=== PATIENT | male | born 1955 | race Caucasian/White ===

== ENCOUNTER 2017-06-01 17:07 | Emergency (ER) | payer OTHER ==
[2017-06-01 17:14] VITALS: BP 136/86
[2017-06-01] MEDS ORDERED: Ondansetron 4 MG Tab.DIS PO ONE ×2 (17:47→20:15)
[2017-06-01] MEDS ORDERED: Ondansetron 4 MG/2 ML SDV IVPUSH ONE (17:53)
[2017-06-01] MEDS ORDERED: Sodium Chloride 0.9% 1,000 ML IV SCH ×2 (18:00→18:45)
[2017-06-01] MEDS ORDERED: Albuterol/Ipratropium 3.0-0.5 MG/3 ML Neb Soln NEB ONE (18:21)
--- NOTE | 2017-06-01 18:23 | EDM.PDOC ---
ED HPI GENERAL MEDICAL PROBLEM - General Chief Complaint: General Stated Complaint: [facility] Time Seen by Provider: 06/01/17 17:30 Source of Information: Reports: Patient, RN Notes Reviewed - History of Present Illness INITIAL COMMENTS - FREE TEXT/NARRATIVE: 61 year male has been brought in by ambulance for evaluation of shortness of breath, nonspecific dizziness. He states [facility]. The became dizzy and lightheaded. Therefore ambulance was called. Vitals were stable upon their arrival. He was transported here without further incident. He continues to feel mildly short of breath. He has no chest pain. Is a very heavy smoker. Is not currently coughing more than usual. He continues to feel mildly short of breath. Looking at ED prior visits he does have history of known alcohol abuse. It does not appear he is taking any current medications. - Related Data Allergies Allergy/AdvReac Type Severity Reaction Status Date / Time No Known Allergies Allergy Verified 06/01/17 17:11 Past Medical History HEENT History: Reports: Impaired Vision Other HEENT History: wears eyeglasses, states has had sinus infection for past 3 yrs. Cardiovascular History: Reports: Hypertension, Other (See Below) Other Cardiovascular History: states BP always elevated but not formally Dx'd. Respiratory History: Reports: Other (See Below) Other Respiratory History: coughing up blood daily, pt self-diagnosing with lung cancer. Gastrointestinal History: Reports: Diverticulosis Musculoskeletal History: Reports: Other (See Below) Other Musculoskeletal History: states has "pinched nerve" to L4. Neurological History: Reports: Concussion Psychiatric History: Reports: Addiction, Anxiety, Depression - Past Surgical History GI Surgical History: Reports: Appendectomy, Hernia, Inguinal Neurological Surgical History: Reports: C-Spine Musculoskeletal Surgical History: Reports: Other (See Below) Dermatological Surgical History: Reports: Skin Graft, Other (See Below) Social & Family History - Family History Family Medical History: Noncontributory - Tobacco Use Smoking Status *Q: Current Every Day Smoker Years of Tobacco use: 40 Packs/Tins Daily: 0.5 Month Tobacco Last Used: 1 yr ago Second Hand Smoke Exposure: No - Caffeine Use Caffeine Use: Reports: Coffee - Alcohol Use Days Per Week of Alcohol Use: 7 Number of Drinks Per Day: 3 Total Drinks Per Week: 21 - Recreational Drug Use Recreational Drug Use: No Drug Use in Last 12 Months: Yes Recreational Drug Type: Reports: Marijuana/Hashish Recreational Drug Use Frequency: Not Used In Over 6 Months - Living Situation & Occupation Living situation: Reports: , Alone Occupation: Employed ED ROS GENERAL - Review of Systems Review Of Systems: See Below Constitutional: Denies: Fever, Chills HEENT: Denies: Sinus Problem, Throat Pain, Throat Swelling Respiratory: Reports: Shortness of Breath, Wheezing (Possible) Cardiovascular: Denies: Chest Pain, Edema GI/Abdominal: Reports: Nausea. Denies: Abdominal Pain, Vomiting (Mild) Musculoskeletal: Denies: Neck Pain, Shoulder Pain, Arm Pain Skin: Reports: No Symptoms Neurological: Reports: Dizziness. Denies: Trouble Speaking, Weakness ED EXAM, GENERAL - Physical Exam Exam: See Below General Appearance: Alert, No Apparent Distress Eye Exam: Bilateral Eye: PERRL Throat/Mouth: Normal Inspection, Normal Oropharynx Head: Atraumatic. No: Facial Swelling Neck: Supple, Full Range of Motion Respiratory/Chest: Respiratory Distress. No: Rales, Rhonchi (Mild tachypnea), Wheezing Cardiovascular: Regular Rate, Rhythm GI/Abdominal: Soft, Non-Tender Extremities: No: Pedal Edema, Leg Pain, Increased Warmth, Redness Neurological: Alert, No Motor/Sensory Deficits Skin Exam: Warm, Dry, Normal Color EKG INTERPRETATION EKG Date: 06/01/17 Rhythm: NSR Bayard: Normal P-Wave: Present QRS: Normal ST-T: Normal Course - Vital Signs Last Recorded V/S: Last Vital Signs Temp 98.2 F 06/01/17 17:12 Pulse 61 06/01/17 17:12 Resp 20 06/01/17 17:12 BP 136/86 06/01/17 17:12 Pulse Ox 96 06/01/17 18:32 - Orders/Labs/Meds Labs: Laboratory Tests 06/01/17 06/01/17 06/01/17 Range/Units 17:45 17:45 17:45 WBC 7.10 (4.23-9.07) K/mm3 RBC 4.82 (4.63-6.08) M/mm3 Hgb 16.6 (13.7-17.5) gm/L Hct 46.9 (40.1-51.0) % MCV 97.3 H (79.0-92.2) fl MCH 34.4 H (25.7-32.2) pg MCHC 35.4 (32.2-35.5) g/dl RDW Std Deviation 48.2 H (35.1-43.9) fL Plt Count 158 L (163-337) K/mm3 MPV 10.1 (9.4-12.3) fl Neut % (Auto) 42.2 (34.0-67.9) % Lymph % (Auto) 46.5 (21.8-53.1) % [place] % (Auto) 8.9 (5.3-12.2) % Eos % (Auto) 1.4 (0.8-7.0) Baso % (Auto) 0.7 (0.1-1.2) % Neut # (Auto) 3.00 (1.78-5.38) K/mm3 Lymph # (Auto) 3.30 (1.32-3.57) K/mm3 [place] # (Auto) 0.63 (0.30-0.82) K/mm3 Eos # (Auto) 0.10 (0.04-0.54) K/mm3 Baso # (Auto) 0.05 (0.01-0.08) K/mm3 Sodium 136 (136-145) mEq/L Potassium 3.2 L (3.5-5.1) mEq/L Chloride 99 (98-107) mEq/L Carbon Dioxide 20 L (21-32) mEq/L Anion Gap 20.2 H (5-15) BUN 11 (7-18) mg/dL Creatinine 1.1 (0.7-1.3) mg/dL Est Cr Clr Drug Dosing 67.36 mL/min Estimated GFR (MDRD) > 60 (>60) mL/min BUN/Creatinine Ratio 10.0 L (14-18) Glucose 153 H (80-115) mg/dL Calcium 9.2 (8.5-10.1) mg/dL Total Bilirubin 1.4 H (0.2-1.0) mg/dL AST 180 H (15-37) U/L ALT 182 H (16-63) U/L Alkaline Phosphatase 87 (46-116) U/L NT-Pro-B Natriuret Pep 52 (0-125) pg/mL Total Protein 7.4 (6.4-8.2) g/dl Albumin 3.8 (3.4-5.0) g/dl Globulin 3.6 gm/dL Albumin/Globulin Ratio 1.1 (1-2) Meds: Medications Discontinued Medications Generic Name Dose Route Start Last Admin Trade Name Jean Claudeq PRN Reason Stop Dose Admin Albuterol/Ipratropium 3 ml 06/01/17 18:21 06/01/17 18:32 Duoneb 3.0-0.5 Mg/3 Ml NEB 06/01/17 18:22 3 ml ONETIME ONE Administration Sodium Chloride 1,000 mls @ 150 mls/hr 06/01/17 18:00 06/01/17 18:05 Normal Saline IV 150 mls/hr ASDIRECTED MELISSA Administration Sodium Chloride 1,000 mls @ 999 mls/hr 06/01/17 18:45 Normal Saline IV ONETIME MELISSA Meclizine HCl 12.5 mg 06/01/17 18:50 06/01/17 18:56 Antivert PO 06/01/17 18:51 12.5 mg ONETIME ONE Administration Methylprednisolone Sodium Succinate 125 mg 06/01/17 18:50 06/01/17 18:56 Solu-Medrol IVPUSH 06/01/17 18:51 125 mg ONETIME ONE Administration Ondansetron HCl 4 mg 06/01/17 17:47 Zofran Odt PO 06/01/17 17:48 ONETIME ONE Ondansetron HCl 4 mg 06/01/17 17:53 06/01/17 18:05 Zofran IVPUSH 06/01/17 17:54 4 mg ONETIME ONE Administration Ondansetron HCl Confirm 06/01/17 20:20 06/01/17 20:18 Zofran Odt Administered 06/01/17 20:21 Not Given Dose 4 mg .ROUTE .STK-MED ONE Ondansetron HCl 4 mg 06/01/17 20:15 06/01/17 20:16 Zofran Odt PO 06/01/17 20:16 4 mg ONETIME ONE Administration - Re-Assessments/Exams Free Text/Narrative Re-Assessment/Exam: 06/01/17 18:42 White blood count is come back normal. Liver enzymes are mildly elevated compatible with what looks like history of alcohol abuse, at least in the past. He does not appear intoxicated at this time. Chest x-ray does not show acute infiltrate. Labs show that he was at least mild to moderately dehydrated. He has been drinking water upon arrival to ED. Food tray was ordered. He states he has not eaten for 3 days. He has been given a DuoNeb. Continues to have no chest pain while here in the ED. 06/01/17 18:45. When I went back to check on patient he was dosing, had not touched his meal tray. When I asked why he was not eating he stated that he still felt "dizzy". When Asked about vertigo he stated that yes "things are moving around and spinning". When I check extraocular motion he does have some mild horizontal nystagmus. Therefore we are going to give Antivert 12.5 mg by mouth at this time. Have also ordered Solu-Medrol 125 mg IV. We will send the remainder of the 12.5 mg Antivert home with him to take tomorrow morning. Patient is agreeable with that plan. Departure - Departure Time of Disposition: 17:40 Disposition: Home, Self-Care 01 Condition: Fair Clinical Impression: Dyspnea Qualifiers: Dyspnea type: unspecified Qualified Code(s): R06.00 - Dyspnea, unspecified Labyrinthitis Qualifiers: Laterality: unspecified laterality Qualified Code(s): H83.09 - Labyrinthitis, unspecified ear - Discharge Information Instructions: Shortness of Breath, [id number], Labyrinthitis Referrals: Isaac Mccollum Jr, MD [Primary Care Provider] - Forms: ED Department Discharge Additional Instructions: Rest, moves slowly and carefully, Sudden movements of your head will make the dizziness worse. We have given you a medication called Antivert or meclizine to help you with the dizziness. You can take the other half of the tablet tomorrow morning. We have also given steroid medication through the IV and given you a nebulized breathing treatment. You do have some mild COPD or emphysema from many years of heavy smoking but I do not see any sign of pneumonia or other heart or lung problem at this time. Clear liquids and bland diet as tolerated. If you continue to have further vertigo or dizziness you can [employer] further meclizine or Antivert from any pharmacy, available OTC. It is not expensive. Follow-up clinic as needed. Return to ED as needed if symptoms worsening in any way.
[2017-06-01] MEDS ORDERED: methylPREDNISolone Sodium Succinate 125 MG/2 ML SDV IVPUSH ONE (18:50)
[2017-06-01] MEDS ORDERED: Meclizine 12.5 MG Tab PO ONE (18:50)
[2017-06-01] MEDS ORDERED: Ondansetron 4 MG Tab.DIS ONE (20:20)
--- NOTE | 2017-06-02 19:59 | CR ---
Chest: Portable view of the chest was obtained. Comparison: Prior chest x-ray of 10/08/16. Heart size is normal. Mild tortuosity of the thoracic aorta is seen. Lungs are clear with no acute infiltrates. Previous lower cervical spine surgery is noted. Impression: 1. Incidental findings. Nothing acute is identified on portable chest x-ray. Diagnostic code #2
== END 2017-06-01 20:20 | disposition home or self-care (01) ==
LOC: JD.ED 17:07
DX: R06.00 Dyspnea, unspecified (principal); H83.09 Labyrinthitis, unspecified ear; F17.210 Nicotine dependence, cigarettes, uncomplicated
CPT/HCPCS: 36415; 71010; 80053; 83880; 85025; 93005; 94640; 96361; 96374; 96375; 99285; A9270; J2405; J2930; J7040; 99284

== ENCOUNTER 2017-06-13 11:15 | Emergency (ER) | payer OTHER ==
[2017-06-13 11:34] VITALS: BP 151/103
--- NOTE | 2017-06-13 11:41 | EDM.PDOCBH ---
ED HPI GENERAL MEDICAL PROBLEM - General Chief Complaint: Drug or Alcohol Abuse Stated Complaint: Medical clearance Time Seen by Provider: 06/13/17 11:40 Source of Information: Reports: Patient, RN Notes Reviewed History Limitations: Reports: No Limitations - History of Present Illness INITIAL COMMENTS - FREE TEXT/NARRATIVE: 61 year old male presents to ED for medical clearance for admission to inpatient crisis bed for alcohol treatment. Patient has a long standing history of alcohol abuse and reports alcohol intake of 1/2 of a fifth of vodka and 6 pack of beer daily. He has had periods of sobriety in the past and lists his withdrawal symptoms as tremors, diaphoresis, and overall malaise. Denies history of seizures. He reports a history of depression with past suicidal ideation without suicide attempt, however, he denies thoughts of harming self or others at present time. Patient is currently residing at a motel, has no transportation, has no money, and his is currently incarcerated. He reports his last drink was 3 days ago, and he has not eaten since due to nausea and decreased appetite. He was seen at ED 06/01/17 for c/o vertigo and reports he still has intermittent symptoms. Vertigo symptoms have improved. At bedside is a [facility] resources staff member who agrees to provide transportation to inpatient facility upon discharge. Patient is 1/2 PPD smoker x 45 years and is requesting nicotine patches. He does report trouble sleeping and takes Advil PM as needed. Back Pain Score (Numeric/FACES): 6 - Related Data Allergies Allergy/AdvReac Type Severity Reaction Status Date / Time No Known Allergies Allergy Verified 06/01/17 17:11 Home Meds: Home Meds ALPRAZolam [Xanax] 0.5 mg PO BEDTIME #10 tablet 06/13/17 [Rx] Nicotine [Habitrol] 21 mg TRDERM DAILY #10 patch 06/13/17 [Rx] Past Medical History HEENT History: Reports: Impaired Vision Other HEENT History: wears eyeglasses, states has had sinus infection for past 3 yrs. Cardiovascular History: Reports: Hypertension Other Cardiovascular History: states BP always elevated but not formally Dx'd. Respiratory History: Reports: Other (See Below) Other Respiratory History: coughing up blood daily, pt self-diagnosing with lung cancer. Gastrointestinal History: Reports: Diverticulosis Musculoskeletal History: Reports: Other (See Below) Other Musculoskeletal History: states has "pinched nerve" to L4. Neurological History: Reports: Concussion Psychiatric History: Reports: Addiction, Anxiety, Depression - Past Surgical History GI Surgical History: Reports: Appendectomy, Hernia, Inguinal Neurological Surgical History: Reports: C-Spine Dermatological Surgical History: Reports: Skin Graft Social & Family History - Family History Family Medical History: Noncontributory - Tobacco Use Smoking Status *Q: Current Every Day Smoker Years of Tobacco use: 49 Packs/Tins Daily: 0.5 Month Tobacco Last Used: 1 yr ago Second Hand Smoke Exposure: No - Caffeine Use Caffeine Use: Reports: Coffee - Alcohol Use Days Per Week of Alcohol Use: 7 Number of Drinks Per Day: 3 Total Drinks Per Week: 21 - Recreational Drug Use Recreational Drug Use: Yes Drug Use in Last 12 Months: Yes Recreational Drug Type: Reports: Marijuana/Hashish Other Recreational Drug Type: years ago admits to drugs Recreational Drug Use Frequency: Not Used In Over 6 Months - Living Situation & Occupation Living situation: Reports: , Alone Occupation: Employed ED ROS GENERAL - Review of Systems Review Of Systems: See Below Constitutional: Reports: Malaise, Fatigue, Diaphoresis, Decreased Appetite HEENT: Reports: Vertigo Respiratory: Reports: Cough (dry, smoker's cough). Denies: Sputum Cardiovascular: Reports: No Symptoms GI/Abdominal: Reports: Decreased Appetite, Nausea. Denies: Abdominal Pain, Constipation, Diarrhea, Vomiting : Reports: No Symptoms Musculoskeletal: Reports: No Symptoms Skin: Denies: Jaundice Neurological: Reports: No Symptoms. Denies: Headache, Seizure Psychiatric: Reports: Anxiety, Depression ED EXAM, BEHAVIORAL HEALTH - Physical Exam Exam: See Below Exam Limited By: No Limitations General Appearance: Alert, No Apparent Distress, Obese Eye Exam: Bilateral Eye: PERRL Ears: Normal External Exam, Normal TMs Head: Atraumatic, Normocephalic Neck: Normal Inspection Respiratory/Chest: No Respiratory Distress, Normal Breath Sounds, No Accessory Muscle Use, Chest Non-Tender, Decreased Breath Sounds Cardiovascular: Normal Peripheral Pulses, Regular Rate, Rhythm, No Murmur GI/Abdominal: Normal Bowel Sounds (obese), Soft, Non-Tender Extremities: Normal Inspection, Normal Range of Motion Neurological: Alert, Normal Mood/Affect, Normal Cognition, Normal Gait, Oriented x 3. No: Ataxia, Tremor Psychiatric: Alert, Normal Affect, Normal Cognition, Normal Mood, Oriented Skin Exam: Warm, Dry, Intact COURSE, BEHAVIORAL HEALTH COMP - Course Vital Signs: Last Vital Signs Temp 97.1 F 06/13/17 11:23 Pulse 81 06/13/17 11:23 Resp 20 06/13/17 11:23 BP 151/103 H 06/13/17 11:33 Pulse Ox 97 06/13/17 11:23 Orders, Labs, Meds: Laboratory Tests 06/13/17 06/13/17 06/13/17 Range/Units 11:59 11:59 12:00 WBC 6.09 (4.23-9.07) K/mm3 RBC 4.70 (4.63-6.08) M/mm3 Hgb 16.1 (13.7-17.5) gm/L Hct 46.2 (40.1-51.0) % MCV 98.3 H (79.0-92.2) fl MCH 34.3 H (25.7-32.2) pg MCHC 34.8 (32.2-35.5) g/dl RDW Std Deviation 48.4 H (35.1-43.9) fL Plt Count 129 L (163-337) K/mm3 MPV 10.3 (9.4-12.3) fl Neut % (Auto) 70.9 H (34.0-67.9) % Lymph % (Auto) 19.2 L (21.8-53.1) % [place] % (Auto) 8.4 (5.3-12.2) % Eos % (Auto) 0.5 L (0.8-7.0) Baso % (Auto) 0.7 (0.1-1.2) % Neut # (Auto) 4.32 (1.78-5.38) K/mm3 Lymph # (Auto) 1.17 L (1.32-3.57) K/mm3 [place] # (Auto) 0.51 (0.30-0.82) K/mm3 Eos # (Auto) 0.03 L (0.04-0.54) K/mm3 Baso # (Auto) 0.04 (0.01-0.08) K/mm3 Sodium (136-145) mEq/L Potassium (3.5-5.1) mEq/L Chloride (98-107) mEq/L Carbon Dioxide (21-32) mEq/L Anion Gap (5-15) BUN (7-18) mg/dL Creatinine (0.7-1.3) mg/dL Est Cr Clr Drug Dosing mL/min Estimated GFR (MDRD) (>60) mL/min BUN/Creatinine Ratio (14-18) Glucose (80-115) mg/dL Calcium (8.5-10.1) mg/dL Total Bilirubin (0.2-1.0) mg/dL AST (15-37) U/L ALT (16-63) U/L Alkaline Phosphatase (46-116) U/L Total Protein (6.4-8.2) g/dl Albumin (3.4-5.0) g/dl Globulin gm/dL Albumin/Globulin Ratio (1-2) TSH 3rd Generation (0.358-3.74) uIU/mL Urine Color Manuela H (Yellow) Urine Appearance Clear (Clear) Urine pH 7.0 (5.0-8.0) Ur Specific [place] 1.025 (1.005-1.030) Urine Protein 1+ H (Negative) Urine Glucose (UA) Negative (Negative) Urine Ketones Negative (Negative) Urine Occult Blood Negative (Negative) Urine Nitrite Positive H (Negative) Urine Bilirubin 2+ H (Negative) Urine Urobilinogen >=8.0 H (0.2-1.0) Ur Leukocyte Esterase Negative (Negative) Urine RBC Not seen (0-5) /hpf Urine WBC 0-5 (0-5) /hpf Ur Epithelial Cells Not seen (0-5) /hpf Urine Bacteria Few (FEW) /hpf Urine Mucus Many H (FEW) /hpf Urine Opiates Screen Negative (NEGATIVE) Ur Buprenorphine Scrn Negative (NEGATIVE) Ur Oxycodone Screen Negative (NEGATIVE) Urine Methadone Screen Negative (NEGATIVE) Ur Propoxyphene Screen Negative (NEGATIVE) Ur Barbiturates Screen Negative (NEGATIVE) Ur Tricyclics Screen Negative (NEGATIVE) Ur Phencyclidine Scrn Negative (NEGATIVE) Ur Amphetamine Screen Negative (NEGATIVE) U Methamphetamines Scrn Negative (NEGATIVE) U Benzodiazepines Scrn Negative (NEGATIVE) U Cocaine Metab Screen Negative (NEGATIVE) U Marijuana (THC) Screen Negative (NEGATIVE) Ethyl Alcohol (0.00) gm% 06/13/ Range/Units 12:00 WBC (4.23-9.07) K/mm3 RBC (4.63-6.08) M/mm3 Hgb (13.7-17.5) gm/L Hct (40.1-51.0) % MCV (79.0-92.2) fl MCH (25.7-32.2) pg MCHC (32.2-35.5) g/dl RDW Std Deviation (35.1-43.9) fL Plt Count (163-337) K/mm3 MPV (9.4-12.3) fl Neut % (Auto) (34.0-67.9) % Lymph % (Auto) (21.8-53.1) % [place] % (Auto) (5.3-12.2) % Eos % (Auto) (0.8-7.0) Baso % (Auto) (0.1-1.2) % Neut # (Auto) (1.78-5.38) K/mm3 Lymph # (Auto) (1.32-3.57) K/mm3 [place] # (Auto) (0.30-0.82) K/mm3 Eos # (Auto) (0.04-0.54) K/mm3 Baso # (Auto) (0.01-0.08) K/mm3 Sodium 140 (136-145) mEq/L Potassium 3.7 (3.5-5.1) mEq/L Chloride 103 (98-107) mEq/L Carbon Dioxide 22 (21-32) mEq/L Anion Gap 18.7 H (5-15) BUN 12 (7-18) mg/dL Creatinine 1.0 (0.7-1.3) mg/dL Est Cr Clr Drug Dosing 74.10 mL/min Estimated GFR (MDRD) > 60 (>60) mL/min BUN/Creatinine Ratio 12.0 L (14-18) Glucose 116 H (80-115) mg/dL Calcium 8.9 (8.5-10.1) mg/dL Total Bilirubin 1.9 H (0.2-1.0) mg/dL AST 82 H (15-37) U/L ALT 118 H (16-63) U/L Alkaline Phosphatase 85 (46-116) U/L Total Protein 7.2 (6.4-8.2) g/dl Albumin 3.7 (3.4-5.0) g/dl Globulin 3.5 gm/dL Albumin/Globulin Ratio 1.1 (1-2) TSH 3rd Generation 1.931 (0.358-3.74) uIU/mL Urine Color (Yellow) Urine Appearance (Clear) Urine pH (5.0-8.0) Ur Specific [place] (1.005-1.030) Urine Protein (Negative) Urine Glucose (UA) (Negative) Urine Ketones (Negative) Urine Occult Blood (Negative) Urine Nitrite (Negative) Urine Bilirubin (Negative) Urine Urobilinogen (0.2-1.0) Ur Leukocyte Esterase (Negative) Urine RBC (0-5) /hpf Urine WBC (0-5) /hpf Ur Epithelial Cells (0-5) /hpf Urine Bacteria (FEW) /hpf Urine Mucus (FEW) /hpf Urine Opiates Screen (NEGATIVE) Ur Buprenorphine Scrn (NEGATIVE) Ur Oxycodone Screen (NEGATIVE) Urine Methadone Screen (NEGATIVE) Ur Propoxyphene Screen (NEGATIVE) Ur Barbiturates Screen (NEGATIVE) Ur Tricyclics Screen (NEGATIVE) Ur Phencyclidine Scrn (NEGATIVE) Ur Amphetamine Screen (NEGATIVE) U Methamphetamines Scrn (NEGATIVE) U Benzodiazepines Scrn (NEGATIVE) U Cocaine Metab Screen (NEGATIVE) U Marijuana (THC) Screen (NEGATIVE) Ethyl Alcohol 0.00 (0.00) gm% Re-Assessment/Re-Exam: CBC is unremarkable. CMP reveals elevated liver enzynes and bilirubin level, likely related to his chronic ETOH abuse. The patient was made aware of these findings. His ETOH is 0. He has no tachycardia, ataxia, tremors, or fever. He reports his last drink was 3 days ago and is not in acute withdrawal at this time. He is medically cleared to go to the [facility]. At time of discharge, he does report some slowly increasing bilateral lower extremity edema. He has no chest pain or SOB. He was instructed to f/u with his PCP Dr. Mccollum within the next week regarding this and his liver function tests. I spoke to Torie and Mary Carmen KAM at [facility]. They have accepted patient. Torie will transport the patient. Departure - Departure Time of Disposition: 13:07 Disposition: DC/Tfer to Other 70 Condition: Good Clinical Impression: Alcohol abuse - Discharge Information Prescriptions: ALPRAZolam [Xanax] 0.5 mg PO BEDTIME #10 tablet Nicotine [Habitrol] 21 mg TRDERM DAILY #10 patch Instructions: Alcohol Use Disorder Referrals: Isaac Mccollum Jr, MD [Primary Care Provider] - Additional Instructions: Medications: Xanax 0.5mg at bedtime Meclizine 25mg twice a day for dizziness. Nicotine patch 21mg on in the morning, off at bedtime Follow-up with Dr. Mccollum within the next week to discuss your liver function and lower extremity swelling Return to ER with any withdrawal symptoms or additional concerns.
== END 2017-06-13 13:35 | disposition other institution (70) ==
LOC: JD.ED 11:15
DX: F10.10 Alcohol abuse, uncomplicated (principal); F17.210 Nicotine dependence, cigarettes, uncomplicated; Z79.899 Other long term (current) drug therapy
CPT/HCPCS: 36415; 80053; 80306; 81001; 84443; 85025; 99283; G0480; 99284

== ENCOUNTER 2020-05-06 16:52 | Emergency (ER) | payer MEDICARE, MEDICAID ==
[2020-05-06] MEDS ORDERED: Octreotide 50 MCG/1 ML Amp IVPUSH ONE (17:04)
--- NOTE | 2020-05-06 17:07 | EDM.PDOC ---
ED HPI GENERAL MEDICAL PROBLEM - General Chief Complaint: Gastrointestinal Problem Stated Complaint: [facility] Time Seen by Provider: 05/06/20 17:00 Source of Information: Reports: Patient History Limitations: Reports: No Limitations - History of Present Illness INITIAL COMMENTS - FREE TEXT/NARRATIVE: 64-year-old male presents to the ED with reported recurrent gross hematemesis since 230 hours this morning. Patient states he did vomit up at least 2 handfuls of blood on 3 occasions since 0230 hrs. this morning. He feels very lightheaded dizzy and weak. He states he missed the toilet and there is blood all over the bathroom. He is known to have ascites of the liver and esophageal varices treated twice in the last few weeks at [facility] in [place] with clipping, although he is not had any upper GI bleeding in the past. Reports the stools are dark black in color the last 2 days as well. Previous abdominal surgery is that of an infraumbilical incision to the pubic symphysis resection of ruptured diverticulum with removal of 6 inches of sigmoid colon. Has a right inguinal hernia as well. Patient has no contraindications to blood transfusion. Onset: Today, Sudden Onset Date: 05/06/20 Onset Time: 02:30 Duration: Hour(s):, Intermittent (Has vomited 3 times of 2 handfuls of blood mixed with clot since 0230 hrs. this morning. Last time was approximately an hour and a half ago.) Location: Reports: Abdomen (Gross hematemesis.) Quality: Reports: Other (Only pain he had in his abdomen was in his lower abdomen as he had a distended bladder and strong need to void.) Severity: Severe Improves with: Reports: None Worsens with: Reports: None Context: Reports: Other (Continuous upper GI bleeding suspect source to be esophageal varices.). Denies: Activity, Exercise, Lifting, Sick Contact, Trauma Associated Symptoms: Reports: Diaphoresis, Loss of Appetite, Malaise, N ausea/Vomiting, Shortness of Breath, Weakness (Generalized). Denies: Confusion, Chest Pain, Cough, cough w sputum, Fever/Chills, Headaches, Rash, Seizure, Syncope Treatments [employer]: Reports: NSAIDS (Motrin usually at bedtime to help sleep. ) - Related Data Allergies Allergy/AdvReac Type Severity Reaction Status Date / Time No Known Allergies Allergy Verified 06/01/17 17:11 Home Meds: Home Meds ALPRAZolam [Xanax] 0.5 mg PO BEDTIME #10 tablet 06/13/17 [Rx] Nicotine [Habitrol] 21 mg TRDERM DAILY #10 patch 06/13/17 [Rx] Past Medical History HEENT History: Reports: Impaired Vision Other HEENT History: wears eyeglasses, states has had sinus infection for past 3 yrs. Cardiovascular History: Reports: Hypertension Other Cardiovascular History: states BP always elevated but not formally Dx'd. Respiratory History: Reports: Other (See Below) Other Respiratory History: coughing up blood daily, pt self-diagnosing with lung cancer. Gastrointestinal History: Reports: Cirrhosis (Known esophageal varices), Diverticulosis, Other (See Below) Musculoskeletal History: Reports: Other (See Below) Other Musculoskeletal History: states has "pinched nerve" to L4. Neurological History: Reports: Concussion Psychiatric History: Reports: Addiction, Anxiety, Depression - Past Surgical History GI Surgical History: Reports: Appendectomy, Hernia, Inguinal Neurological Surgical History: Reports: C-Spine Dermatological Surgical History: Reports: Skin Graft Social & Family History - Family History Family Medical History: Noncontributory - Tobacco Use Smoking Status *Q: Current Every Day Smoker Tobacco Use Within Last Twelve Months: Cigarettes (5 to 10 cigarettes daily.) - Caffeine Use Caffeine Use: Reports: Coffee - Alcohol Use Alcohol Use History: Yes Days Per Week of Alcohol Use: 4 (Usually 2-3 beers 3 or 4 times weekly.) - Living Situation & Occupation Living situation: Reports: Alone Occupation: Unemployed ED ROS GENERAL - Review of Systems Review Of Systems: See Below Constitutional: Reports: Malaise, Weakness, Fatigue, Decreased Appetite. Denies: Fever, Chills, Weight Loss HEENT: Reports: Glasses Respiratory: Reports: Shortness of Breath (Reading.), Cough. Denies: Wheezing, Pleuritic Chest Pain, Hemoptysis (Occasional cough occasional sputum production) Cardiovascular: Reports: Dyspnea on Exertion ( today after vomiting x3 of gross hematemesis.), Lightheadedness (Dizzy). Denies: Chest Pain, Blood Pressure Problem, Claudication, Orthopnea Endocrine: Reports: Fatigue GI/Abdominal: Reports: Black Stool (Yesterday and today), Decreased Appetite, Hematemesis (Gross hematemesis x3 since 0 to 30 hours this morning. ). Denies: Abdominal Pain : Reports: Frequency, Other (Teary at x3. Known BPH.) Musculoskeletal: Reports: Back Pain, Joint Pain (Knees hips neck at times) Skin: Reports: Bruising (Is extremely easily. He states that he does pop up on his abdomen and extremities for no good reason.) Neurological: Reports: No Symptoms Psychiatric: Reports: Anxiety Hematologic/Lymphatic: Reports: Easy Bleeding, Easy Bruising Immunologic: Reports: No Symptoms ED EXAM, GI/ABD - Physical Exam Exam: See Below Exam Limited By: No Limitations General Appearance: Alert, WD/WN, Moderate Distress, Other (There is pallid and has dried blood around his lips. Temperature is 37.1 heart rate 113 at the dside respiratory is 18 with O2 sats 100% on room air BP 1 3277) Eyes: Bilateral: Normal Appearance (Out blepharal pallor. No scleral icterus.) Throat/Mouth: Other (Tongue is very dry and coated.). No: Normal Teeth ( Teeth are in very poor condition.) Head: Atraumatic, Normocephalic, Other (No overt signs of head or facial trauma.) Neck: Normal Inspection, Limited Range of Motion, Tender Lateral. No: Carotid Bruit, Lymphadenopathy (L) (Crepitus on lateral rotation of the neck. Some tenderness along the lateral aspect of the cervical spine both sides.), Lymphadenopathy (R) Respiratory/Chest: Respiratory Distress (Mild tachypnea on my exam at 22/min.), Decreased Breath Sounds (Breath sounds are mildly diminished to the lung bases by about 15%.), Wheezing. No: Normal Breath Sounds, Rales (Occasional expiratory wheeze.), Rhonchi Cardiovascular: Regular Rate, Rhythm, No Edema, No Gallop, No Murmur, No Rub, Tachycardia (Tachycardia at the bedside 113/min.). No: Normal Peripheral Pulses GI/Abdominal Exam: Soft, Non-Tender (Bowel sounds are fairly hyperactive in all 4 quadrants.), No Organomegaly, Abnormal Bowel Sounds, Other (Has multiple large ecchymoses on the abdominal wall which he cannot explain how they occurred. They are not due to injection to medication) (Male) Exam: Other (He has a palpable right inguinal hernia.) Back Exam: No: CVA Tenderness (L), CVA Tenderness (R) Extremities: Normal Inspection, Normal Range of Motion, Non-Tender, No Pedal Edema Neurological: Alert, Oriented, CN II-XII Intact, Normal Cognition Psychiatric: Normal Affect, Normal Mood Skin Exam: Warm, Dry, Intact, No Rash, Pallor EKG INTERPRETATION EKG Date: 05/06/20 Time: 17:12 Rhythm: Other (Sinus tachycardia) Rate (Beats/Min): 112 [place]: Normal P-Wave: Enlarged (Sitter right atrial hypertrophy) QRS: Other (Early R wave transition compared with right ventricular appear to be versus septal hypertrophy pattern.) ST-T: Other (T wave flattening in aVL nonspecific finding.) QT: Prolonged (Moderately prolonged) EKG Interpretation Comments: Abnormal ECG Course - Vital Signs Last Recorded V/S: Last Vital Signs Temp 37.1 C 05/06/20 17:00 Pulse 113 H 05/06/20 17:00 Resp 18 05/06/20 17:00 BP 132/77 05/06/20 17:00 Pulse Ox 100 05/06/20 17:00 - Orders/Labs/Meds Orders: Active Orders 24 hr Category Date Time Status EKG Documentation Completion [RC] STAT Care 05/06/20 17:02 Active PACKED CELLS [RED BLOOD CELLS LP] [BBK] Stat Lab 05/06/20 16:50 Results TYPE AND SCREEN [BBK] Stat Lab 05/06/20 16:50 Results Dextrose 5%-0.9% NaCl [Dextrose 5%-Normal Saline] 1,000 Med 05/06/20 17:30 Active ml IV ASDIRECTED LORazepam [Ativan] Med 05/06/20 19:50 Once 1 mg IV ONETIME ONE Octreotide [SandoSTATIN] 500 mcg Med 05/06/20 17:15 Active Sodium Chloride 0.9% [Normal Saline] 499 ml IV Q10H Transfuse RBC [Transfuse Red Blood Cells] [COMM] Stat Oth 05/06/20 17:49 Ordered Medication Orders Octreotide Acetate 500 mcg/ (Sodium Chloride) 500 mls @ 50 mls/hr IV Q10H MELISSA Last Admin: 05/06/20 17:14 Dose: 50 mcg/hr, 50 mls/hr Documented by: AARON Dextrose/Sodium Chloride (Dextrose 5%-Normal Saline) 1,000 mls @ 250 mls/hr IV ASDIRECTED MELISSA Lorazepam (Ativan) 1 mg IV ONETIME ONE Stop: 05/06/20 19:51 Labs: Laboratory Tests 05/06/20 05/06/20 05/06/20 Range/Units 16:50 16:50 16:50 WBC 14.56 H (4.23-9.07) K/mm3 RBC 2.11 L (4.63-6.08) M/mm3 Hgb 7.6 L D (13.7-17.5) gm/dl Hct 23.1 L (40.1-51.0) % MCV 109.5 H D (79.0-92.2) fl MCH 36.0 H (25.7-32.2) pg MCHC 32.9 (32.2-35.5) g/dl RDW Std Deviation 59.5 H (35.1-43.9) fL Plt Count 100 L (163-337) K/mm3 MPV 10.1 (9.4-12.3) fl Neut % (Auto) 81.9 H (34.0-67.9) % Lymph % (Auto) 8.0 L (21.8-53.1) % [place] % (Auto) 8.7 (5.3-12.2) % Eos % (Auto) 0 L (0.8-7.0) Baso % (Auto) 0.1 (0.1-1.2) % Neut # (Auto) 11.91 H (1.78-5.38) K/mm3 Lymph # (Auto) 1.17 L (1.32-3.57) K/mm3 [place] # (Auto) 1.27 H (0.30-0.82) K/mm3 Eos # (Auto) 0.00 L (0.04-0.54) K/mm3 Baso # (Auto) 0.02 (0.01-0.08) K/mm3 Manual Slide Review Abnormal smear PT 27.2 H (9.7-11.7) SECONDS INR 2.59 APTT 38 H (22-31) SECONDS Sodium 139 (136-145) mEq/L Potassium 4.7 (3.5-5.1) mEq/L Chloride 103 (98-107) mEq/L Carbon Dioxide 14 L (21-32) mEq/L Anion Gap 26.7 H (5-15) BUN 29 H (7-18) mg/dL Creatinine 1.9 H (0.7-1.3) mg/dL Est Cr Clr Drug Dosing 37.50 mL/min Estimated GFR (MDRD) 36 (>60) mL/min BUN/Creatinine Ratio 15.3 (14-18) Glucose 157 H (80-115) mg/dL Calcium 8.4 L (8.5-10.1) mg/dL Magnesium 2.0 (1.8-2.4) mg/dl Total Bilirubin 5.0 H (0.2-1.0) mg/dL AST 122 H (15-37) U/L ALT 79 H (16-63) U/L Alkaline Phosphatase 92 (46-116) U/L Troponin I 0.115 H* (0.00-0.056) ng/mL C-Reactive Protein 3.2 H* (<1.0) mg/dL NT-Pro-B Natriuret Pep (0-125) pg/mL Total Protein 5.5 L (6.4-8.2) g/dl Albumin 2.2 L (3.4-5.0) g/dl Globulin 3.3 gm/dL Albumin/Globulin Ratio 0.7 L (1-2) Lipase (73-393) U/L Urine Color (Yellow) Urine Appearance (Clear) Urine pH (5.0-8.0) Ur Specific [place] (1.005-1.030) Urine Protein (Negative) Urine Glucose (UA) (Negative) Urine Ketones (Negative) Urine Occult Blood (Negative) Urine Nitrite (Negative) Urine Bilirubin (Negative) Urine Urobilinogen (0.2-1.0) Ur Leukocyte Esterase (Negative) Urine RBC (0-5) /hpf Urine WBC (0-5) /hpf Ur Squamous Epith Cells (0-5) /hpf Urine Bacteria (FEW) /hpf Urine Mucus (FEW) /hpf Ethyl Alcohol 0.00 (0.00) gm% SARS CoV-2 RNA Rapid ARTEMIO (NEGATIVE) Blood Type Gel Antibody Screen Crossmatch 05/06/20 05/06/20 05/06/20 Range/Units 16:50 16:50 16:50 WBC (4.23-9.07) K/mm3 RBC (4.63-6.08) M/mm3 Hgb (13.7-17.5) gm/dl Hct (40.1-51.0) % MCV (79.0-92.2) fl MCH (25.7-32.2) pg MCHC (32.2-35.5) g/dl RDW Std Deviation (35.1-43.9) fL Plt Count (163-337) K/mm3 MPV (9.4-12.3) fl Neut % (Auto) (34.0-67.9) % Lymph % (Auto) (21.8-53.1) % [place] % (Auto) (5.3-12.2) % Eos % (Auto) (0.8-7.0) Baso % (Auto) (0.1-1.2) % Neut # (Auto) (1.78-5.38) K/mm3 Lymph # (Auto) (1.32-3.57) K/mm3 [place] # (Auto) (0.30-0.82) K/mm3 Eos # (Auto) (0.04-0.54) K/mm3 Baso # (Auto) (0.01-0.08) K/mm3 Manual Slide Review PT (9.7-11.7) SECONDS INR APTT (22-31) SECONDS Sodium (136-145) mEq/L Potassium (3.5-5.1) mEq/L Chloride (98-107) mEq/L Carbon Dioxide (21-32) mEq/L Anion Gap (5-15) BUN (7-18) mg/dL Creatinine (0.7-1.3) mg/dL Est Cr Clr Drug Dosing mL/min Estimated GFR (MDRD) (>60) mL/min BUN/Creatinine Ratio (14-18) Glucose (80-115) mg/dL Calcium (8.5-10.1) mg/dL Magnesium (1.8-2.4) mg/dl Total Bilirubin (0.2-1.0) mg/dL AST (15-37) U/L ALT (16-63) U/L Alkaline Phosphatase (46-116) U/L Troponin I (0.00-0.056) ng/mL C-Reactive Protein (<1.0) mg/dL NT-Pro-B Natriuret Pep 178 H (0-125) pg/mL Total Protein (6.4-8.2) g/dl Albumin (3.4-5.0) g/dl Globulin gm/dL Albumin/Globulin Ratio (1-2) Lipase 378 (73-393) U/L Urine Color (Yellow) Urine Appearance (Clear) Urine pH (5.0-8.0) Ur Specific [place] (1.005-1.030) Urine Protein (Negative) Urine Glucose (UA) (Negative) Urine Ketones (Negative) Urine Occult Blood (Negative) Urine Nitrite (Negative) Urine Bilirubin (Negative) Urine Urobilinogen (0.2-1.0) Ur Leukocyte Esterase (Negative) Urine RBC (0-5) /hpf Urine WBC (0-5) /hpf Ur Squamous Epith Cells (0-5) /hpf Urine Bacteria (FEW) /hpf Urine Mucus (FEW) /hpf Ethyl Alcohol (0.00) gm% SARS CoV-2 RNA Rapid ARTEMIO (NEGATIVE) Blood Type A POSITIVE Gel Antibody Screen Negative Crossmatch See Detail 05/06/20 05/06/20 Range/Units 17:04 19:10 WBC (4.23-9.07) K/mm3 RBC (4.63-6.08) M/mm3 Hgb (13.7-17.5) gm/dl Hct (40.1-51.0) % MCV (79.0-92.2) fl MCH (25.7-32.2) pg MCHC (32.2-35.5) g/dl RDW Std Deviation (35.1-43.9) fL Plt Count (163-337) K/mm3 MPV (9.4-12.3) fl Neut % (Auto) (34.0-67.9) % Lymph % (Auto) (21.8-53.1) % [place] % (Auto) (5.3-12.2) % Eos % (Auto) (0.8-7.0) Baso % (Auto) (0.1-1.2) % Neut # (Auto) (1.78-5.38) K/mm3 Lymph # (Auto) (1.32-3.57) K/mm3 [place] # (Auto) (0.30-0.82) K/mm3 Eos # (Auto) (0.04-0.54) K/mm3 Baso # (Auto) (0.01-0.08) K/mm3 Manual Slide Review PT (9.7-11.7) SECONDS INR APTT (22-31) SECONDS Sodium (136-145) mEq/L Potassium (3.5-5.1) mEq/L Chloride (98-107) mEq/L Carbon Dioxide (21-32) mEq/L Anion Gap (5-15) BUN (7-18) mg/dL Creatinine (0.7-1.3) mg/dL Est Cr Clr Drug Dosing mL/min Estimated GFR (MDRD) (>60) mL/min BUN/Creatinine Ratio (14-18) Glucose (80-115) mg/dL Calcium (8.5-10.1) mg/dL Magnesium (1.8-2.4) mg/dl Total Bilirubin (0.2-1.0) mg/dL AST (15-37) U/L ALT (16-63) U/L Alkaline Phosphatase (46-116) U/L Troponin I (0.00-0.056) ng/mL C-Reactive Protein (<1.0) mg/dL NT-Pro-B Natriuret Pep (0-125) pg/mL Total Protein (6.4-8.2) g/dl Albumin (3.4-5.0) g/dl Globulin gm/dL Albumin/Globulin Ratio (1-2) Lipase (73-393) U/L Urine Color Yellow (Yellow) Urine Appearance Clear (Clear) Urine pH 5.5 (5.0-8.0) Ur Specific [place] > or = 1.030 (1.005-1.030) Urine Protein Negative (Negative) Urine Glucose (UA) Negative (Negative) Urine Ketones 1+ H (Negative) Urine Occult Blood Negative (Negative) Urine Nitrite Negative (Negative) Urine Bilirubin Negative (Negative) Urine Urobilinogen 1.0 (0.2-1.0) Ur Leukocyte Esterase Negative (Negative) Urine RBC 0-5 (0-5) /hpf Urine WBC 0-5 (0-5) /hpf Ur Squamous Epith Cells 5-10 H (0-5) /hpf Urine Bacteria Moderate H (FEW) /hpf Urine Mucus Few (FEW) /hpf Ethyl Alcohol (0.00) gm% SARS CoV-2 RNA Rapid ARTEMIO Negative (NEGATIVE) Blood Type Gel Antibody Screen Crossmatch Meds: Medications Generic Name Dose Route Start Last Admin Trade Name Freq PRN Reason Stop Dose Admin Octreotide Acetate 500 mcg/ 500 mls @ 50 mls/hr 05/06/20 17:15 05/06/20 17:14 Sodium Chloride IV 50 mcg/hr Q10H MELISSA 50 mls/hr Administration 50 MCG/HR Dextrose/Sodium Chloride 1,000 mls @ 250 mls/hr 05/06/20 17:30 Dextrose 5%-Normal Saline IV ASDIRECTED MELISSA Lorazepam 1 mg 05/06/20 19:50 Ativan IV 05/06/20 19:51 ONETIME ONE Discontinued Medications Generic Name Dose Route Start Last Admin Trade Name Freq PRN Reason Stop Dose Admin Fentanyl 50 mcg 05/06/20 17:41 05/06/20 17:53 Sublimaze IVPUSH 05/06/20 17:42 50 mcg ONETIME ONE Administration Octreotide Acetate 50 mcg 05/06/20 17:15 05/06/20 17:27 Octreotide IV 05/06/20 17:16 50 mcg ONETIME ONE Administration - Radiology Interpretation Free Text/Narrative:: 64-year-old male presents to the ED with a history of black tarry stools x2 days and gross hematemesis x3 since 0230 hrs. this morning. He states on 3 occasions he is vomited up to a larger than 2 handfuls of blood and clot mostly fresh blood starting at 230 this morning. He feels lightheaded and dizzy with standing. He is pallid in appearance he has dried blood around his lips. He is suspect to have ascites of the liver with esophageal varices. He is not had any esophageal variceal bleeding documented in the old chart. He is willing to accept blood products if necessary. He has spontaneous bruises on his abdominal wall and upper extremities making it highly suspicious that he does have significant ascites. He claims that he only drinks 2-3 beers daily. He takes Motrin usually once daily at bedtime to help sleep. He does not use aspirin. Smokes 5 to 10 cigarettes daily. Plan I will place him on octreotide drip at 50 mcg/h. He will be given a 50 mcg IV bolus at this time. Type and screen and routine labs including serum lipase ordered. CT scan of his abdomen will be ordered with IV contrast. - Re-Assessments/Exams Free Text/Narrative Re-Assessment/Exam: 05/06/20 17:41 and is requesting medication for pain primarily in his back and neck. We will give fentanyl 50 mcg IV. Blood pressure at this time is 27/71 with sats of 98% on room air and heart rate of 112/min.White count is elevated at 14. 5 6. Differential shows 82% neutrophils on the auto differential. Hemoglobin is low at 7.6. Hematocrit is 23.1 MCV is elevated at 109.5 platelet count low at 100. These numbers suggest chronic alcoholism with bone marrow suppression. PT is 27.2 with an INR of 2.59 PTT is 38. Sodium 139 with a potassium of 4.7 chloride 103 with a bicarb of 14. Anion gap markedly elevated at 26.7. BUN is 29 with a creatinine of 1.9. GFR is 36 a stage III renal insufficiency. Glucose is 157. Calcium is 8.4. Magnesium is 2.0 total bilirubin is 5.0 with an AST of 122 and an alk phos days of 92. Troponin I is mildly elevated at 0.115 C-reactive protein is 3.2. BNP is 178. Total protein is 5.5 with an albumin fraction low at 2.2 lipase 378 upper limits of normal. The urinalysis shows 1+ ketones 5-10 squamous epithelial cells and moderate bacteria negative leukocyte esterase blood alcohol is currently 0.00. CT of the abdomen and pelvis were therefore be done without contrast due to his elevated creatinine and poor renal function. Patient will be transfused 2 units of packed RBCs as soon as they are available. Consent signed for blood transfusion. Of note portable chest x-ray reveals heart size mediastinum to be within normal limits. Tortuous thoracic aorta is seen which is stable. Lungs are clear with no acute parenchymal changes. 05/06/20 18:35 CT of the abdomen pelvis performed without any contrast due to elevated renal function and hematemesis. There was no prior abdominal imaging for comparison purposes. Findings reveal a small left-sided pleural effusion. Mild ascites is seen around the liver and the spleen. Liver has a nodular contour suspicious for cirrhosis. No focal abnormalities appreciated within the liver. Spleen size is moderately enlarged at 14 cm. Adrenal glands show no nodules. Kidneys show no abnormal calcifications. No ureteral dilatation or ureteral stones are identified. Gallbladder contains no calcified gallstones. Aorta shows atherosclerotic calcification which shows no aneurysmal dilatation. No retroperitoneal adenopathy or mesenteric abnormalities are seen. Right inguinal hernia is seen containing fat as well as some ascites fluid. Small left-sided inguinal hernia also appreciated. Diverticuli are seen within the sigmoid and descending colon without inflammatory change or diverticulitis. Mild increased stool is noted within the rectosigmoid region. Window settings show scattered degenerative change within the spine. No acute osseous findings are appreciated. Nurses just informed me that the patient had a large melena stool at this time. He therefore has significant GI bleeding. Heart rate is gone up to 116. Sats are 97% BP is 132/63. 05/06/2020: 18:45: With 1 call nurse at [facility] in [place] and after a period of time elected to wait until she could contact chief executive officer on- call and hospitalist orthodontist assistant to discuss the case and have care accepted. 05/06/20 19:24 Due to lack of ground ambulance transport for another 2 to 3 hours we have opted to send the patient to [facility] in [place] by air. Current vital signs reveal a heart rate of 115 sinus tachycardia sats of 98% room air with blood pressure of 122/70. Currently receiving first unit of packed cells in route received a second unit of packed RBCs in route to hospital. He is to travel to the emergency room at [facility] in [place]. Dr. Tristan to see room physician has accepted care and on- call chief executive officer has been made aware of the case. He will continue to have octreotide infusion at 50 mcg/h. 05/06/20 BP is 106/62. nurses are trying to start second IV line. Heart rate is 117--sinus tachycardia. 02 sats are 97% on Room air. He is feeling very apprehensive about flying to [facility]. Will give him Ativan 1mg IV at this time. Departure - Departure Time of Disposition: 20:25 Disposition: DC/Tfer to Acute Hospital 02 Condition: Serious Clinical Impression: Upper gastrointestinal hemorrhage, Esophageal varices, Elevated INR Cirrhosis of liver with ascites Qualifiers: Hepatic cirrhosis type: alcoholic cirrhosis Qualified Code(s): K70.31 - Alcoholic cirrhosis of liver with ascites - Discharge Information *PRESCRIPTION DRUG MONITORING PROGRAM REVIEWED*: Not Applicable *COPY OF PRESCRIPTION DRUG MONITORING REPORT IN PATIENT TATA: Not Applicable Instructions: Esophageal Varices Referrals: Isaac Mccollum Jr, MD [Primary Care Provider] - Forms: ED Department Discharge Additional Instructions: Patient will be transferred to [facility] in [place] per air as ground ambulance availability will not be available for another 2 to 3 hours. His condition is too unstable with a major upper GI hemorrhage with addition of large melena stool while in the ED. Known ascites of the liver with esophageal varices. Receiving first unit of blood in the ED and second unit will be transfused in route to [place]. We will continue octreotide infusion at 50 mcg/h. Normal saline at 250 mils per hour. Sepsis Event Note (ED) - Focused Exam Vital Signs: Vital Signs Temp Pulse Resp BP Pulse Ox 05/06/20 17:00 37.1 C 113 H 18 132/77 100 - My Orders Last 24 Hours: My Active Orders 05/06/20 16:50 PACKED CELLS [RED BLOOD CELLS LP] [BBK] Stat TYPE AND SCREEN [BBK] Stat 05/06/20 17:02 EKG Documentation Completion [RC] STAT 05/06/20 17:15 Octreotide [SandoSTATIN] 500 mcg Sodium Chloride 0.9% [Normal Saline] 499 ml IV Q10H 05/06/20 17:30 Dextrose 5%-0.9% NaCl [Dextrose 5%-Normal Saline] 1,000 ml IV ASDIRECTED 05/06/20 17:49 Transfuse RBC [Transfuse Red Blood Cells] [COMM] Stat 05/06/20 19:50 LORazepam [Ativan] 1 mg IV ONETIME ONE - Assessment/Plan Last 24 Hours: My Active Orders 05/06/20 16:50 PACKED CELLS [RED BLOOD CELLS LP] [BBK] Stat TYPE AND SCREEN [BBK] Stat 05/06/20 17:02 EKG Documentation Completion [RC] STAT 05/06/20 17:15 Octreotide [SandoSTATIN] 500 mcg Sodium Chloride 0.9% [Normal Saline] 499 ml IV Q10H 05/06/20 17:30 Dextrose 5%-0.9% NaCl [Dextrose 5%-Normal Saline] 1,000 ml IV ASDIRECTED 05/06/20 17:49 Transfuse RBC [Transfuse Red Blood Cells] [COMM] Stat 05/06/20 19:50 LORazepam [Ativan] 1 mg IV ONETIME ONE
[2020-05-06] MEDS ORDERED: Octreotide 500 MCG in Sodium Chloride 0.9% 499 ML IV SCH (17:15)
[2020-05-06] MEDS ORDERED: Dextrose 5%-0.9% NaCl 1,000 ML IV SCH (17:30)
[2020-05-06] MEDS ORDERED: fentaNYL 100 MCG/2 ML SDV IVPUSH ONE (17:41)
--- NOTE | 2020-05-06 17:56 | CR ---
Chest: Portable view of the chest was obtained. Comparison: Prior chest x-ray 06/01/17. Heart size and mediastinum are within normal limits. Tortuous thoracic aorta is seen which is stable. Lungs are clear with no acute parenchymal change. Bony structures are unremarkable. Impression: 1. Nothing acute is seen on portable chest x-ray. Diagnostic code #1 This report was dictated in MDT
--- NOTE | 2020-05-06 18:22 | CT ---
CT abdomen and pelvis Technique: Multiple axial sections were obtained from above the dome of the diaphragm inferiorly through the pubic symphysis. Intravenous and oral contrast not utilized. Comparison: No prior abdominal imaging is available. Findings: Visualized lung bases show nothing acute. Small left-sided pleural effusion is noted. Mild ascites is seen around the liver and spleen. Liver has a nodular contour suspicious for cirrhosis. No focal abnormality is appreciated within the liver. Spleen size is mildly enlarged at 14 cm. Adrenal glands show no nodule. Kidneys show no abnormal calcifications. No ureteral dilatation or ureteral stone is seen. Gallbladder contains no calcified gallstones. Aorta shows atherosclerotic calcification which shows no aneurysmal dilatation. No retroperitoneal adenopathy or mesenteric abnormalities are seen. Right inguinal hernia is seen containing fat as well as some ascitic fluid. Small left-sided inguinal hernia is noted. Diverticuli are seen within the sigmoid and descending colon without inflammatory change or diverticulitis. Mild increased stool is noted within the rectosigmoid region. Bone window settings shows scattered degenerative change within the spine. No acute osseous finding is appreciated. Impression: 1. Mild amount of ascites. Small left-sided pleural effusion. Right inguinal hernia containing ascites. 2. Liver has the appearance of cirrhosis. Spleen is mildly enlarged. 3. Other nonacute findings as described above. Diagnostic code #3 This report was dictated in [facility]T
[2020-05-06] MEDS ORDERED: LORazepam 2 MG/ML SDV IV ONE (19:50)
[2020-05-06 20:29] VITALS: BP 95/55; PULSE 115
== END 2020-05-06 21:00 ==
LOC: JD.ED 16:52
DX: K92.2 Gastrointestinal hemorrhage, unspecified (principal); K70.31 Alcoholic cirrhosis of liver with ascites; I85.00 Esophageal varices without bleeding; R79.1 Abnormal coagulation profile; M79.81 Nontraumatic hematoma of soft tissue; R00.0 Tachycardia, unspecified; I10 Essential (primary) hypertension; F41.9 Anxiety disorder, unspecified; F32.9 Major depressive disorder, single episode, unspecified; Z79.899 Other long term (current) drug therapy; F17.210 Nicotine dependence, cigarettes, uncomplicated; Z20.828 Contact with and (suspected) exposure to other viral communicable diseases; R06.02 Shortness of breath
CPT/HCPCS: 36415; 36430; 71045; 74176; 80053; 80307; 81001; 83690; 83735; 83880; 84484; 85025; 85610; 85730; 86140; 86850; 86900; 86901; 86922; 93005; 96365; 96366; 96375; 96376; 99285; J2060; J2354; J3010; J7040; P9016; U0002; 93010

== ENCOUNTER 2020-07-12 15:59 | Inpatient (IN) | payer MEDICARE, MEDICAID ==
--- NOTE | 2020-07-12 16:20 | EDM.PDOC ---
ED HPI GENERAL MEDICAL PROBLEM - General Chief Complaint: Upper Extremity Injury/Pain Stated Complaint: [facility] Time Seen by Provider: 07/12/20 16:02 Source of Information: Reports: Patient, EMS History Limitations: Reports: Altered Mental Status ( moderately confused.) - History of Present Illness INITIAL COMMENTS - FREE TEXT/NARRATIVE: 64-year-old male presents to the ED per [facility] with confusion and disorientation. 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 Apparently he no longer drinks alcohol but does still smoke cigarettes when he has accessibility. Apparently his home is very disheveled and furniture is moved around. Very unkept. It is felt that he is unsafe for him to return to that environment according to social workers. Patient has been reluctant to come to the hospital. He recently apparently was admitted in [place] with es ophageal variceal bleeding. Concern today was potential cellulitis of both lower extremities. Family the bruising slightly from the posterior aspects of the legs. He states they hurt all the time making it very difficult for him to ambulate and get particularly get to the bathroom. It is suspect that he is noncompliant with his medications simply because he cannot remember to take them. Patient ideally needs to be admitted to a long-term care facility. Onset: Other (Deterioration in level of function particularly cognition) Duration: Chronic, Getting Worse Location: Reports: Generalized (Hepatic encephalopathy) Quality: Reports: Other (Severe swelling and erythema of both lower extremities with oozing serous fluid due to chronic edema.) Severity: Moderate Improves with: Reports: None Worsens with: Reports: None Context: Denies: Activity, Exercise, Lifting, Sick Contact, Trauma, Other Associated Symptoms: Reports: Cough, Loss of Appetite, Malaise, Shortness of Breath, Weakness. 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 Cardiovascular History: Reports: Hypertension Other Cardiovascular History: states BP always elevated but not formally Dx'd. Respiratory History: Reports: Other (See Below) Other Respiratory History: coughing up blood daily, pt self-diagnosing with lung cancer. Gastrointestinal History: Reports: Cirrhosis (Known esophageal varices), Diverticulosis, Other (See Below) Musculoskeletal History: Reports: Other (See Below) Other Musculoskeletal History: states has "pinched nerve" to L4. Neurological History: Reports: Concussion, Other (See Below) (hepatic encephalopathy.) Psychiatric History: Reports: Addiction, Anxiety, Depression - Past Surgical History GI Surgical History: Reports: Appendectomy, Hernia, Inguinal Neurological Surgical History: Reports: C-Spine Dermatological Surgical History: Reports: Skin Graft Social & Family History - Family History Family Medical History: No Pertinent Family History - Tobacco Use Tobacco Use Status *Q: Current Every Day Tobacco User (2-5 per day.) Tobacco Use Within Last Twelve Months: Cigarettes - Caffeine Use Caffeine Use: Reports: Coffee - Alcohol Use Alcohol Use History: No Alcohol Use Frequency: Not Used in Over 2 Months - Living Situation & Occupation Living situation: Reports: Alone Occupation: Unemployed Review of Systems - Review of Systems Review Of Systems: See Below Constitutional: Reports: Weakness. Denies: Chills, Diaphoresis, Fever Eyes: Reports: Decreased Acuity, Glasses Ears: Reports: Dizziness Nose: Reports: No Symptoms Mouth/Throat: Reports: Loose Teeth Respiratory: Reports: Shortness of Breath, Wheezing, Cough (Denies sputum production) Cardiovascular: Reports: Edema (Very chronic dependent edema to carry of both legs with associated ascites. Clinically has anasarca). Denies: Chest Pain, Irregular Heart Rate, Lightheadedness GI/Abdominal: Reports: Other (Has a history of esophageal varices with hematemesis. Nothing recent.). Denies: Abdominal Pain, Bloody Stool, Constipation, Vomiting Genitourinary: Denies: Dysuria Musculoskeletal: Reports: Neck Pain, Shoulder Pain, Back Pain (He sips low back), Joint Pain Skin: Reports: Dryness, Rash ( erythema both lower extremities severe dependent edema both lower extremities with erythema and oozing of serous material posterior calves.), Erythema (Both lower extremities), Other (No evidence of gangrene of the toes.) Neurological: Reports: Confusion, Difficulty Walking (I believe he is unable to walk at this time due to the size of his legs.) Psychiatric: Reports: Other (History of chronic alcoholism apparently not drank for the last 2 months.) ED EXAM, GENERAL - Physical Exam Exam: See Below Exam Limited By: Altered Mental Status (Zepeda is confused and disoriented to place and time.) General Appearance: Mild Distress, Other (Temperature is 35.9 heart rate is 68 in sinus respiratory 16 with O2 sats of 95% on room air BP is 167/128. ) Eye Exam: Bilateral Eye: Normal Inspection (No significant blepharal pallor. He has moderate scleral icterus.), Nystagmus (Nystagmus appreciated), PERRL Throat/Mouth: Other (Tongue is moderately dry. Teeth are in very bad condition) Head: Atraumatic, Normocephalic, Other (No outward signs of head or facial trauma) Neck: Normal Inspection, Limited Range of Motion (Hepatus on lateral rotation with decreased or loss of 10 degrees extension and 5 degrees flexion). No: Carotid Bruit, Lymphadenopathy (L), Lymphadenopathy (R), Thyromegaly Respiratory/Chest: No Respiratory Distress, Decreased Breath Sounds, Rales ( Sc attered expiratory wheezes. Few rales appreciated right lung base), Wheezing (Creased air entry to the lower 30% lung avila bilaterally.), Other (No abrasions or contusions to the chest wall.). No: Lungs Clear, Normal Breath Sounds, Chest Non-Tender Cardiovascular: No Gallop, No Murmur, No Rub, JVD (3 cm below the right angle of the mandible.), Other. No: Normal Peripheral Pulses Peripheral Pulses: 0: Posterior Tibial (L) (No pulses are palpable in the lower extremities due to severe 4+ pitting edema of both lower extremities), Posterior Tibial (R), Dorsalis Pedis (L), Dorsalis Pedis (R), 2+: Carotid (L), Carotid (R) GI/Abdominal: Normal Bowel Sounds, Soft, Non-Tender, No Organomegaly, No Mass, Pelvis Stable. No: Guarding, Rigid, Rebound (Male) Exam: Other (Patient does have edema of the scrotum and penis.) Back Exam: Decreased Range of Motion (And has trouble sitting up on his own volition in bed.) Extremities: Pedal Edema (Legs slightly worse on the left than on the right.) Neurological: CN II-XII Intact, Inattentive, Confused, Abnormal Reflexes (Reflex tach). No: Alert, Oriented, Normal Cognition, Normal Gait Psychiatric: Flat Affect Skin Exam: Warm, Dry, Intact, Normal Color, Erythema (Both legs are erythematous due to gross edema. There is no draining lesions from either lower extremity.), Jaundice (Patient has a mild today diffuse jaundice appearance to his skin.) #1 Interpretation EKG Date: 07/12/20 Time: 16:43 Rhythm: NSR Rate (Beats/Min): 75 (Occasional PACs.) [place]: Normal P-Wave: Enlarged (Consider left atrial hypertrophy) QRS: Other (Early QRS transition in V2. Consider right ventricular perjury pattern versus septal hypertrophy pattern.) ST-T: Other (T wave flattening aVL nonspecific) QT: Prolonged (Moderately prolonged) EKG Interpretation Comments: Abnormal ECG Course - Vital Signs Last Recorded V/S: Last Vital Signs Temp 36.3 C 07/12/20 18:20 Pulse 76 07/12/20 18:47 Resp 18 07/12/20 18:47 BP 89/43 L 07/12/20 18:47 Pulse Ox 99 07/12/20 18:47 - Orders/Labs/Meds Orders: Active Orders 24 hr Category Date Time Status Patient Status [ADT] Routine ADT 07/13/20 10:07 Active Cardiac Monitoring [RC] CONTINUOUS Care 07/13/20 10:08 Active EKG Documentation Completion [RC] STAT Care 07/12/20 16:09 Active Height and Weight [RC] DAILY Care 07/13/20 10:07 Active Intake and Output [RC] QSHIFT Care 07/13/20 10:08 Active Oxygen Therapy [RC] PRN Care 07/13/20 10:07 Active Pulse Oximetry [RC] PRN Care 07/13/20 10:08 Active Up With Assistance [RC] ASDIRECTED Care 07/13/20 10:07 Active VTE/DVT Education [RC] PER UNIT ROUTINE Care 07/13/20 10:07 Active Vital Signs [RC] Q4H Care 07/13/20 10:07 Active Consult to Case Management/Purse Seining Hand [CONS] Cons 07/13/20 10:07 Active Routine Consult to Product Development Technician [CONS] Routine Cons 07/13/20 10:07 Active Consult to Spiritual Care [CONS] Routine Cons 07/13/20 10:07 Active OT Evaluation and Treatment [CONS] Routine Cons 07/13/20 10:07 Active PT Evaluation and Treatment [CONS] Routine Cons 07/13/20 10:07 Active YOUTH MANAGER Evaluation and Treatment [CONS] Routine Cons 07/13/20 10:07 Active Low Protein [Protein Restricted Diet] [DIET] Diet 07/13/20 Lunch Active AMMONIA VENOUS [CHEM] Routine Lab 07/14/20 05:11 Ordered CBC WITH AUTO DIFF [HEME] AM Lab 07/14/20 05:11 Ordered CBC WITH AUTO DIFF [HEME] AM Lab 07/15/20 05:11 Ordered CBC WITH AUTO DIFF [HEME] AM Lab 07/16/20 05:11 Ordered CBC WITH AUTO DIFF [HEME] AM Lab 07/17/20 05:11 Ordered CMP [COMPREHENSIVE METABOLIC PN,CMP] [CHEM] AM Lab 07/14/20 05:11 Ordered CMP [COMPREHENSIVE METABOLIC PN,CMP] [CHEM] AM Lab 07/15/20 05:11 Ordered CMP [COMPREHENSIVE METABOLIC PN,CMP] [CHEM] AM Lab 07/16/20 05:11 Ordered CMP [COMPREHENSIVE METABOLIC PN,CMP] [CHEM] AM Lab 07/17/20 05:11 Ordered CRP [C-REACTIVE PROTEIN] [CHEM] AM Lab 07/14/20 05:11 Ordered CRP [C-REACTIVE PROTEIN] [CHEM] AM Lab 07/15/20 05:11 Ordered CRP [C-REACTIVE PROTEIN] [CHEM] AM Lab 07/16/20 05:11 Ordered CRP [C-REACTIVE PROTEIN] [CHEM] AM Lab 07/17/20 05:11 Ordered CULTURE BLOOD [BC] Stat Lab 07/12/20 16:41 Received CULTURE BLOOD [BC] Stat Lab 07/12/20 17:18 Results LACTIC ACID [CHEM] Routine Lab 07/13/20 10:17 Ordered MAGNESIUM [CHEM] AM Lab 07/14/20 05:11 Ordered MAGNESIUM [CHEM] AM Lab 07/15/20 05:11 Ordered MAGNESIUM [CHEM] AM Lab 07/16/20 05:11 Ordered MAGNESIUM [CHEM] AM Lab 07/17/20 05:11 Ordered PROCALCITONIN [REF] Routine Lab 07/13/20 10:22 Ordered VANCOMYCIN TROUGH [CHEM] Timed Lab 07/15/20 10:00 Ordered ALPRAZolam [Xanax] Med 07/13/20 21:00 Active 1 mg PO BEDTIME Furosemide [Lasix] Med 07/14/20 09:00 Active 20 mg IVPUSH DAILY Lactulose [Cephulac] Med 07/12/20 21:00 Active 20 gm PO TID Ondansetron [Zofran] Med 07/13/20 10:07 Active 4 mg IV Q6H PRN Pharmacy to Dose - Vancomycin Med 07/13/20 10:15 Active 1 dose .XX ASDIRECTED Potassium Chloride [Klor-Con M20] Med 07/13/20 15:00 Active 40 meq PO TID Sodium Chloride 0.9% [Normal Saline] 1,000 ml Med 07/12/20 17:00 Active IV ASDIRECTED Spironolactone [Aldactone] Med 07/14/20 09:00 Active 25 mg PO DAILY Vancomycin [Vancocin] 1 gm Med 07/13/20 11:00 Active Sodium Chloride 0.9% [Normal Saline (AdvBag)] 250 ml IV Q12H Anticoagulation Contraindications VTE [AST] Click to Oth 07/13/20 10:24 Ordered Edit Blood Culture x2 Reflex Set [OM.PC] Stat Oth 07/12/20 16:10 Ordered Medication Orders Alprazolam (Xanax) 1 mg PO BEDTIME MELISSA Furosemide (Lasix) 20 mg IVPUSH DAILY MELISSA Sodium Chloride (Normal Saline) 1,000 mls @ 125 mls/hr IV ASDIRECTED MELISSA Last Admin: 07/12/20 17:03 Dose: 125 mls/hr Documented by: ANETTE Vancomycin HCl 1 gm/ Sodium (Chloride) 250 mls @ 250 mls/hr IV Q12H MELISSA Lactulose (Cephulac) 20 gm PO TID MELISSA Last Admin: 07/13/20 09:51 Dose: 20 gm Documented by: Admin: 07/12/20 21:23 Dose: 20 gm Documented by: SAY Ondansetron HCl (Zofran) 4 mg IV Q6H PRN PRN Reason: Nausea/Vomiting Potassium Chloride (Klor-Con M20) 40 meq PO TID [facility] Stop: 07/14/20 09:01 Spironolactone (Aldactone) 25 mg PO DAILY [facility] Vancomycin HCl (Pharmacy To Dose - Vancomycin) 1 dose .XX ASDIRECTED [facility] Labs: Laboratory Tests 07/12/20 07/12/20 07/12/20 Range/Units 16:10 16:34 16:41 WBC 5.60 (4.23-9.07) K/mm3 RBC 2.60 L (4.63-6.08) M/mm3 Hgb 8.9 L (13.7-17.5) gm/dl Hct 24.7 L (40.1-51.0) % MCV 95.0 H D (79.0-92.2) fl MCH 34.2 H (25.7-32.2) pg MCHC 36.0 H (32.2-35.5) g/dl RDW Std Deviation 60.5 H (35.1-43.9) fL Plt Count 74 L (163-337) K/mm3 MPV 10.0 (9.4-12.3) fl Neut % (Auto) 63.2 (34.0-67.9) % Lymph % (Auto) 19.5 L (21.8-53.1) % [place] % (Auto) 15.7 H (5.3-12.2) % Eos % (Auto) 1.1 (0.8-7.0) Baso % (Auto) 0.5 (0.1-1.2) % Neut # (Auto) 3.54 (1.78-5.38) K/mm3 Lymph # (Auto) 1.09 L (1.32-3.57) K/mm3 [place] # (Auto) 0.88 H (0.30-0.82) K/mm3 Eos # (Auto) 0.06 (0.04-0.54) K/mm3 Baso # (Auto) 0.03 (0.01-0.08) K/mm3 Manual Slide Review ESR (0-15) mm/hr PT (9.7-12.0) SECONDS INR APTT (21.7-31.4) SECONDS Sodium (136-145) mEq/L Potassium (3.5-5.1) mEq/L Chloride (98-107) mEq/L Carbon Dioxide (21-32) mEq/L Anion Gap (5-15) BUN (7-18) mg/dL Creatinine (0.7-1.3) mg/dL Est Cr Clr Drug Dosing Estimated GFR (MDRD) (>60) mL/min BUN/Creatinine Ratio (14-18) Glucose (80-115) mg/dL Lactic Acid (0.4-2.0) mmol/L Calcium (8.5-10.1) mg/dL Magnesium (1.8-2.4) mg/dl Total Bilirubin (0.2-1.0) mg/dL AST (15-37) U/L ALT (16-63) U/L Alkaline Phosphatase (46-116) U/L Ammonia (11-32) umol/L Troponin I (0.00-0.056) ng/mL C-Reactive Protein (<1.0) mg/dL NT-Pro-B Natriuret Pep (0-125) pg/mL Total Protein (6.4-8.2) g/dl Albumin (3.4-5.0) g/dl Globulin gm/dL Albumin/Globulin Ratio (1-2) Urine Color Yellow (Yellow) Urine Appearance Clear (Clear) Urine pH 5.5 (5.0-8.0) Ur Specific [place] 1.025 (1.005-1.030) Urine Protein Negative (Negative) Urine Glucose (UA) Negative (Negative) Urine Ketones Negative (Negative) Urine Occult Blood Negative (Negative) Urine Nitrite Negative (Negative) Urine Bilirubin 1+ H (Negative) Urine Urobilinogen 4.0 H (0.2-1.0) Ur Leukocyte Esterase Negative (Negative) Urine RBC 0-5 (0-5) /hpf Urine WBC 0-5 (0-5) /hpf Ur Squamous Epith Cells 0-5 (0-5) /hpf Urine Bacteria Few (FEW) /hpf Urine Mucus Few (FEW) /hpf Ethyl Alcohol (0.00) gm% SARS-CoV-2 RNA (ARTEMIO) Negative (NEGATIVE) 07/12/20 07/12/20 07/12/20 Range/Units 16:41 16:41 16:41 WBC (4.23-9.07) K/mm3 RBC (4.63-6.08) M/mm3 Hgb (13.7-17.5) gm/dl Hct (40.1-51.0) % MCV (79.0-92.2) fl MCH (25.7-32.2) pg MCHC (32.2-35.5) g/dl RDW Std Deviation (35.1-43.9) fL Plt Count (163-337) K/mm3 MPV (9.4-12.3) fl Neut % (Auto) (34.0-67.9) % Lymph % (Auto) (21.8-53.1) % [place] % (Auto) (5.3-12.2) % Eos % (Auto) (0.8-7.0) Baso % (Auto) (0.1-1.2) % Neut # (Auto) (1.78-5.38) K/mm3 Lymph # (Auto) (1.32-3.57) K/mm3 [place] # (Auto) (0.30-0.82) K/mm3 Eos # (Auto) (0.04-0.54) K/mm3 Baso # (Auto) (0.01-0.08) K/mm3 Manual Slide Review ESR (0-15) mm/hr PT 19.8 H (9.7-12.0) SECONDS INR 1.87 APTT 47.8 H (21.7-31.4) SECONDS Sodium 122 L D (136-145) mEq/L Potassium 3.9 (3.5-5.1) mEq/L Chloride 88 L D (98-107) mEq/L Carbon Dioxide 25 D (21-32) mEq/L Anion Gap 12.9 (5-15) BUN 21 H (7-18) mg/dL Creatinine 1.1 (0.7-1.3) mg/dL Est Cr Clr Drug Dosing TNP Estimated GFR (MDRD) > 60 (>60) mL/min BUN/Creatinine Ratio 19.1 H (14-18) Glucose 111 (80-115) mg/dL Lactic Acid (0.4-2.0) mmol/L Calcium 8.8 (8.5-10.1) mg/dL Magnesium (1.8-2.4) mg/dl Total Bilirubin 8.7 H (0.2-1.0) mg/dL AST 65 H (15-37) U/L ALT 69 H (16-63) U/L Alkaline Phosphatase 96 (46-116) U/L Ammonia 37 H (11-32) umol/L Troponin I 0.038 (0.00-0.056) ng/mL C-Reactive Protein 1.7 H* (<1.0) mg/dL NT-Pro-B Natriuret Pep (0-125) pg/mL Total Protein 6.6 (6.4-8.2) g/dl Albumin 2.4 L (3.4-5.0) g/dl Globulin 4.2 gm/dL Albumin/Globulin Ratio 0.6 L (1-2) Urine Color (Yellow) Urine Appearance (Clear) Urine pH (5.0-8.0) Ur Specific [place] (1.005-1.030) Urine Protein (Negative) Urine Glucose (UA) (Negative) Urine Ketones (Negative) Urine Occult Blood (Negative) Urine Nitrite (Negative) Urine Bilirubin (Negative) Urine Urobilinogen (0.2-1.0) Ur Leukocyte Esterase (Negative) Urine RBC (0-5) /hpf Urine WBC (0-5) /hpf Ur Squamous Epith Cells (0-5) /hpf Urine Bacteria (FEW) /hpf Urine Mucus (FEW) /hpf Ethyl Alcohol (0.00) gm% SARS-CoV-2 RNA (ARTEMIO) (NEGATIVE) 07/12/20 07/12/20 07/12/20 Range/Units 16:41 16:41 16:41 WBC (4.23-9.07) K/mm3 RBC (4.63-6.08) M/mm3 Hgb (13.7-17.5) gm/dl Hct (40.1-51.0) % MCV (79.0-92.2) fl MCH (25.7-32.2) pg MCHC (32.2-35.5) g/dl RDW Std Deviation (35.1-43.9) fL Plt Count (163-337) K/mm3 MPV (9.4-12.3) fl Neut % (Auto) (34.0-67.9) % Lymph % (Auto) (21.8-53.1) % [place] % (Auto) (5.3-12.2) % Eos % (Auto) (0.8-7.0) Baso % (Auto) (0.1-1.2) % Neut # (Auto) (1.78-5.38) K/mm3 Lymph # (Auto) (1.32-3.57) K/mm3 [place] # (Auto) (0.30-0.82) K/mm3 Eos # (Auto) (0.04-0.54) K/mm3 Baso # (Auto) (0.01-0.08) K/mm3 Manual Slide Review ESR 14 (0-15) mm/hr PT (9.7-12.0) SECONDS INR APTT (21.7-31.4) SECONDS Sodium (136-145) mEq/L Potassium (3.5-5.1) mEq/L Chloride (98-107) mEq/L Carbon Dioxide (21-32) mEq/L Anion Gap (5-15) BUN (7-18) mg/dL Creatinine (0.7-1.3) mg/dL Est Cr Clr Drug Dosing Estimated GFR (MDRD) (>60) mL/min BUN/Creatinine Ratio (14-18) Glucose (80-115) mg/dL Lactic Acid 2.7 H* (0.4-2.0) mmol/L Calcium (8.5-10.1) mg/dL Magnesium 1.9 (1.8-2.4) mg/dl Total Bilirubin (0.2-1.0) mg/dL AST (15-37) U/L ALT (16-63) U/L Alkaline Phosphatase (46-116) U/L Ammonia (11-32) umol/L Troponin I (0.00-0.056) ng/mL C-Reactive Protein (<1.0) mg/dL NT-Pro-B Natriuret Pep (0-125) pg/mL Total Protein (6.4-8.2) g/dl Albumin (3.4-5.0) g/dl Globulin gm/dL Albumin/Globulin Ratio (1-2) Urine Color (Yellow) Urine Appearance (Clear) Urine pH (5.0-8.0) Ur Specific [place] (1.005-1.030) Urine Protein (Negative) Urine Glucose (UA) (Negative) Urine Ketones (Negative) Urine Occult Blood (Negative) Urine Nitrite (Negative) Urine Bilirubin (Negative) Urine Urobilinogen (0.2-1.0) Ur Leukocyte Esterase (Negative) Urine RBC (0-5) /hpf Urine WBC (0-5) /hpf Ur Squamous Epith Cells (0-5) /hpf Urine Bacteria (FEW) /hpf Urine Mucus (FEW) /hpf Ethyl Alcohol (0.00) gm% SARS-CoV-2 RNA (ARTEMIO) (NEGATIVE) 07/12/20 07/12/20 07/13/20 Range/Units 16:41 16:41 08:40 WBC 5.82 (4.23-9.07) K/mm3 RBC 2.85 L (4.63-6.08) M/mm3 Hgb 9.6 L (13.7-17.5) gm/dl Hct 26.8 L (40.1-51.0) % MCV 94.0 H (79.0-92.2) fl MCH 33.7 H (25.7-32.2) pg MCHC 35.8 H (32.2-35.5) g/dl RDW Std Deviation 60.1 H (35.1-43.9) fL Plt Count 57 L (163-337) K/mm3 MPV 9.2 L (9.4-12.3) fl Neut % (Auto) 70.2 H (34.0-67.9) % Lymph % (Auto) 15.8 L (21.8-53.1) % [place] % (Auto) 12.9 H (5.3-12.2) % Eos % (Auto) 0.9 (0.8-7.0) Baso % (Auto) 0.2 (0.1-1.2) % Neut # (Auto) 4.09 (1.78-5.38) K/mm3 Lymph # (Auto) 0.92 L (1.32-3.57) K/mm3 [place] # (Auto) 0.75 (0.30-0.82) K/mm3 Eos # (Auto) 0.05 (0.04-0.54) K/mm3 Baso # (Auto) 0.01 (0.01-0.08) K/mm3 Manual Slide Review Abnormal smear ESR (0-15) mm/hr PT (9.7-12.0) SECONDS INR APTT (21.7-31.4) SECONDS Sodium (136-145) mEq/L Potassium (3.5-5.1) mEq/L Chloride (98-107) mEq/L Carbon Dioxide (21-32) mEq/L Anion Gap (5-15) BUN (7-18) mg/dL Creatinine (0.7-1.3) mg/dL Est Cr Clr Drug Dosing Estimated GFR (MDRD) (>60) mL/min BUN/Creatinine Ratio (14-18) Glucose (80-115) mg/dL Lactic Acid (0.4-2.0) mmol/L Calcium (8.5-10.1) mg/dL Magnesium (1.8-2.4) mg/dl Total Bilirubin (0.2-1.0) mg/dL AST (15-37) U/L ALT (16-63) U/L Alkaline Phosphatase (46-116) U/L Ammonia (11-32) umol/L Troponin I (0.00-0.056) ng/mL C-Reactive Protein (<1.0) mg/dL NT-Pro-B Natriuret Pep 467 H (0-125) pg/mL Total Protein (6.4-8.2) g/dl Albumin (3.4-5.0) g/dl Globulin gm/dL Albumin/Globulin Ratio (1-2) Urine Color (Yellow) Urine Appearance (Clear) Urine pH (5.0-8.0) Ur Specific [place] (1.005-1.030) Urine Protein (Negative) Urine Glucose (UA) (Negative) Urine Ketones (Negative) Urine Occult Blood (Negative) Urine Nitrite (Negative) Urine Bilirubin (Negative) Urine Urobilinogen (0.2-1.0) Ur Leukocyte Esterase (Negative) Urine RBC (0-5) /hpf Urine WBC (0-5) /hpf Ur Squamous Epith Cells (0-5) /hpf Urine Bacteria (FEW) /hpf Urine Mucus (FEW) /hpf Ethyl Alcohol 0.00 (0.00) gm% SARS-CoV-2 RNA (ARTEMIO) (NEGATIVE) 07/13/20 Range/Units 08:40 WBC (4.23-9.07) K/mm3 RBC (4.63-6.08) M/mm3 Hgb (13.7-17.5) gm/dl Hct (40.1-51.0) % MCV (79.0-92.2) fl MCH (25.7-32.2) pg MCHC (32.2-35.5) g/dl RDW Std Deviation (35.1-43.9) fL Plt Count (163-337) K/mm3 MPV (9.4-12.3) fl Neut % (Auto) (34.0-67.9) % Lymph % (Auto) (21.8-53.1) % [place] % (Auto) (5.3-12.2) % Eos % (Auto) (0.8-7.0) Baso % (Auto) (0.1-1.2) % Neut # (Auto) (1.78-5.38) K/mm3 Lymph # (Auto) (1.32-3.57) K/mm3 [place] # (Auto) (0.30-0.82) K/mm3 Eos # (Auto) (0.04-0.54) K/mm3 Baso # (Auto) (0.01-0.08) K/mm3 Manual Slide Review ESR (0-15) mm/hr PT (9.7-12.0) SECONDS INR APTT (21.7-31.4) SECONDS Sodium 128 L (136-145) mEq/L Potassium 3.3 L (3.5-5.1) mEq/L Chloride 93 L (98-107) mEq/L Carbon Dioxide 24 (21-32) mEq/L Anion Gap 14.3 (5-15) BUN 17 (7-18) mg/dL Creatinine 0.9 (0.7-1.3) mg/dL Est Cr Clr Drug Dosing 72.97 Estimated GFR (MDRD) > 60 (>60) mL/min BUN/Creatinine Ratio 18.9 H (14-18) Glucose 107 (80-115) mg/dL Lactic Acid (0.4-2.0) mmol/L Calcium 8.4 L (8.5-10.1) mg/dL Magnesium (1.8-2.4) mg/dl Total Bilirubin 8.3 H (0.2-1.0) mg/dL AST 64 H (15-37) U/L ALT 66 H (16-63) U/L Alkaline Phosphatase 88 (46-116) U/L Ammonia (11-32) umol/L Troponin I (0.00-0.056) ng/mL C-Reactive Protein (<1.0) mg/dL NT-Pro-B Natriuret Pep (0-125) pg/mL Total Protein 6.5 (6.4-8.2) g/dl Albumin 2.3 L (3.4-5.0) g/dl Globulin 4.2 gm/dL Albumin/Globulin Ratio 0.6 L (1-2) Urine Color (Yellow) Urine Appearance (Clear) Urine pH (5.0-8.0) Ur Specific [place] (1.005-1.030) Urine Protein (Negative) Urine Glucose (UA) (Negative) Urine Ketones (Negative) Urine Occult Blood (Negative) Urine Nitrite (Negative) Urine Bilirubin (Negative) Urine Urobilinogen (0.2-1.0) Ur Leukocyte Esterase (Negative) Urine RBC (0-5) /hpf Urine WBC (0-5) /hpf Ur Squamous Epith Cells (0-5) /hpf Urine Bacteria (FEW) /hpf Urine Mucus (FEW) /hpf Ethyl Alcohol (0.00) gm% SARS-CoV-2 RNA (ARTEMIO) (NEGATIVE) Meds: Medications Generic Name Dose Route Start Last Admin Trade Name Freq PRN Reason Stop Dose Admin Alprazolam 1 mg 07/13/20 21:00 Xanax PO BEDTIME MELISSA Furosemide 20 mg 07/14/20 09:00 Lasix IVPUSH DAILY MELISSA Sodium Chloride 1,000 mls @ 125 mls/hr 07/12/20 17:00 07/12/20 17:03 Normal Saline IV 125 mls/hr ASDIRECTED MELISSA Administration Vancomycin HCl 1 gm/ Sodium 250 mls @ 250 mls/hr 07/13/20 11:00 Chloride IV Q12H MELISSA Lactulose 20 gm 07/12/20 21:00 07/13/20 09:51 Cephulac PO 20 gm TID MELISSA Administration Ondansetron HCl 4 mg 07/13/20 10:07 Zofran IV Q6H PRN Nausea/Vomiting Potassium Chloride 40 meq 07/13/20 15:00 Klor-Con M20 PO 07/14/20 09:01 TID MELISSA Spironolactone 25 mg 07/14/20 09:00 Aldactone PO DAILY [facility] Vancomycin HCl 1 dose 07/13/20 10:15 Pharmacy To Dose - Vancomycin .XX ASDIRECTED [facility] Discontinued Medications Generic Name Dose Route Start Last Admin Trade Name Fan PRN Reason Stop Dose Admin Alprazolam 1 mg 07/12/20 21:00 07/12/20 21:24 Xanax PO 07/12/20 21:01 1 mg BEDTIME ONE Administration Furosemide 40 mg 07/12/20 19:16 07/12/20 19:38 Lasix IVPUSH 07/12/20 19:17 40 mg NOW ONE Administration Furosemide 40 mg 07/13/20 09:14 07/13/20 09:42 Lasix IVPUSH 07/13/20 09:15 40 mg NOW ONE Administration Furosemide 40 mg 07/14/20 09:00 Lasix IVPUSH DAILY [facility] Vancomycin HCl 1.5 gm/ Sodium 500 mls @ 250 mls/hr 07/12/20 19:20 07/12/20 20:07 Chloride IV 07/12/20 19:21 250 mls/hr ONETIME ONE Administration Spironolactone 25 mg 07/12/20 19:17 07/12/20 19:38 Aldactone PO 07/12/20 19:18 25 mg ONETIME ONE Administration Spironolactone 25 mg 07/13/20 09:15 07/13/20 09:50 Aldactone PO 07/13/20 09:16 25 mg ONETIME ONE Administration - Radiology Interpretation Free Text/Narrative:: 64-year-old male with known cirrhosis of the liver and a past history of hepatic encephalopathy presents to the ED per [facility] from his own home. Apparently it is felt by social workers that is unsafe for him to return to this environment as he is not able to care for himself. The home is severely disheveled with furniture turned over in all kinds of awkward positions. Patient apparently is becoming more confused and disoriented over the last week. Apparently he stopped drinking alcohol 2 months ago. He has a history of esophageal varices with esophageal bleed requiring treatment at least once in [place]. He states his stools are usually on the loose side. It is felt that he is noncompliant with current medications which is aggravating his current medical condition. Plan he will have routine labs collected including a serum ammonia. His blood pressure initially was reportedly quite high but it was fictitious. Blood pressure is settled to 90/50. Heart rate is 76 in sinus O2 sats were 95% on room air. Patient will have an IV of normal saline started at 100 mils per hour. - Re-Assessments/Exams Free Text/Narrative Re-Assessment/Exam: 07/12/20 17:28 White blood cell count is 5.60. 63.2% neutrophils on the auto differential. Hemoglobin is low at 8.9 with hematocrit of 24.7 MCV is 95.0 platelet count is low at 74,000. Urinalysis shows 1+ bilirubin and 4.0 urobilinogen. Negative leukocyte esterase and no signs of infection. 07/12/20 17:51 chest x-ray has finally been completed. Lungs are mildly hyperinflated. There appears to be some scar tissue both lower lobes of the lungs compatible with chronic smoking. There are no pleural effusions and no pneumothorax. Heart is normal in size as are the mediastinal and hilar contours. There has been a prior ACDF of the lower cervical spine. Pressure is improved to 92/46. Heart rate remains 70. 07/12/20 17:54 PT is 19.8 with an INR of 1.87. PTT is elevated at 47.8. ie.. auto anticoagulated. Sodium is low at 122 with a potassium of 3.9 chloride 88 with a bicarb of 25 anion gap is 12.9. BUN is 21 with a creatinine of 1.1 and a GFR greater than 60. Glucose is 111 . Lactic acid elevated at 2.7 . Calcium 8.8 magnesium 1.9 .Total bilirubin is 8.7 AST is 65 with an ALT of 69 alk phosphatase is 96. Serum ammonia level is 37 .Minimally elevated-- normal in our lab up to 32. Troponin I is 0.038. C-reactive protein is 1.7 .BNP is 467. Total protein 6.6 albumin 2.4. Blood alcohol is 0.00. Patient's BNP is not all that bad. He will therefore be on a 5 normal saline infusion at 100 mils an hour overnight to try and improve his serum sodium status. 07/12/20 19:06 Not able to find a bed for him elsewhere in the state at this time. He will therefore remain in the ED for observation status overnight and will see about beds tomorrow. There is a small chance that he could be a direct admit to [facility] in [place]. I will write orders therefore for Lasix 40 mg IV every 12 hours while in the emergency room. Aldactone 25 mg tablet orally now. Xanax 1 mg at bedtime as needed to help sleep. Lactulose 20 g by mouth 3 times daily. Will give initial dose of vancomycin 1500mg IV for suspected cellulitis lower extremities. Further doses will be administered by pharmacy. 07/12/20 19:22 care will be transferred to Dr. Mortensen as it is now change of shift. Patient will remain in the ER as there is no other bed for him available at this time. I will return in the morning at 0700 hrs. to resume my schedule shift and will tentatively find a definitive discharge for this fellow. 07/13/20 09:13 Labs repeated this morning reveal a similar white count at 5.82. Hemoglobin is 9.6 slightly better than on admission at 8.9. Hematocrit is 26.8. MCV is 94 platelet count is still low at 57,000. Repeat chemistry ordered this morning is not yet available. I will repeat his Lasix 40 mg IV and Aldactone 25 mg p.o. this morning. This will be discussed with on-call hospitalist Dr. Melchor with a view to admission to the hospital since a bed is now available. Blood pressure remains low at between 85 and 95 systolic over 38 with heart rate in the 60s. Departure - Departure Time of Disposition: 10:29 Disposition: Admitted As Inpatient 65 Condition: Serious Clinical Impression: Dependent edema, Bilateral lower leg cellulitis, Anemia, Thrombocytopenia, Lactic acidosis, Hypokalemia, Hyponatremia, Elevated INR Cirrhosis of liver Qualifiers: Hepatic cirrhosis type: alcoholic cirrhosis Ascites presence: with ascites Qualified Code(s): K70.31 - Alcoholic cirrhosis of liver with ascites - Discharge Information *PRESCRIPTION DRUG MONITORING PROGRAM REVIEWED*: Not Applicable *COPY OF PRESCRIPTION DRUG MONITORING REPORT IN PATIENT TATA: Not Applicable Instructions: Cellulitis, Adult Referrals: PCP,Unknown [Ordering Only Provider] - Forms: ED Department Discharge - My Orders Last 24 Hours: My Active Orders 07/12/20 16:09 EKG Documentation Completion [RC] STAT 07/12/20 16:10 Blood Culture x2 Reflex Set [OM.PC] Stat 07/12/20 16:41 CULTURE BLOOD [BC] Stat 07/12/20 17:00 Sodium Chloride 0.9% [Normal Saline] 1,000 ml IV ASDIRECTED 07/12/20 17:18 CULTURE BLOOD [BC] Stat 07/12/20 21:00 Lactulose [Cephulac] 20 gm PO TID - Assessment/Plan Last 24 Hours: My Active Orders 07/12/20 16:09 EKG Documentation Completion [RC] STAT 07/12/20 16:10 Blood Culture x2 Reflex Set [OM.PC] Stat 07/12/20 16:41 CULTURE BLOOD [BC] Stat 07/12/20 17:00 Sodium Chloride 0.9% [Normal Saline] 1,000 ml IV ASDIRECTED 07/12/20 17:18 CULTURE BLOOD [BC] Stat 07/12/20 21:00 Lactulose [Cephulac] 20 gm PO TID
[2020-07-12] MEDS ORDERED: Sodium Chloride 0.9% 1,000 ML IV SCH (17:00)
[2020-07-12] MEDS ORDERED: Furosemide 40 MG/4 ML VIAL IVPUSH ONE (19:16)
[2020-07-12] MEDS ORDERED: Spironolactone 25 MG Tab PO ONE (19:17)
[2020-07-12] MEDS ORDERED: Vancomycin 1.5 GM in Sodium Chloride 0.9% 500 ML IV ONE (19:20)
[2020-07-12] MEDS ORDERED: ALPRAZolam 1 MG Tab PO ONE (21:00)
[2020-07-12] MEDS: Lactulose Soln 10 GM/15 ML 30 ML UD Cup PO SCH (21:23)
--- NOTE | 2020-07-13 08:36 | CR ---
PROCEDURE INFORMATION: Exam: XR Chest, 1 View Exam date and time: 07/12/2020 4:16 PM Age: 64 years old Clinical indication: Cardiovascular condition or disease; Congestive heart failure (chf) and other: Dyspnea, copd, smoker; Cause unknown; Type unknown; Patient HX: Dyspnea, copd, smoker, chf TECHNIQUE: Imaging protocol: XR of the chest Views: 1 view. COMPARISON: CR Chest 1V Frontal 06/01/2017 6:06 PM FINDINGS: Lungs: The lungs are symmetric, well expanded and clear. There are stable faint reticular interstitial opacities in the lungs. Pleural space: There are no pleural effusions. There is no pneumothorax. Heart/Mediastinum: The heart size is normal as are the mediastinal and hilar contours. The pulmonary vessels are normal. Bones/joints: No acute osseous pathology is identified. There has been prior ACDF of the lower cervical spine. IMPRESSION: No acute cardiopulmonary disease process identified. Thank you for allowing us to participate in the care of your patient. Dictated and Authenticated by: Lidia Baker MD 07/12/2020 6:41 PM Central Time ([place] & [place]) [email or web address]
[2020-07-13] MEDS ORDERED: Furosemide 40 MG/4 ML VIAL IVPUSH ONE (09:14)
[2020-07-13] MEDS ORDERED: Spironolactone 25 MG Tab PO ONE (09:15)
[2020-07-13] MEDS: Lactulose Soln 10 GM/15 ML 30 ML UD Cup PO SCH ×4 (09:51→21:39)
[2020-07-13] MEDS ORDERED: Ondansetron 4 MG/2 ML SDV IV PRN (10:07)
--- NOTE | 2020-07-13 10:32 | PCM.HP.2 ---
H&P History of Present Illness - General Date of Service: 07/13/20 Admit Problem/Dx: Admission Diagnosis/Problem Admission Diagnosis/Problem Cellulitis Source of Information: Patient, Old Records, Provider, RN, RN Notes Reviewed History Limitations: Reports: No Limitations - History of Present Illness Initial Comments - Free Text/Narative: This is a 64 yo male who presents to ED on 07/12/2020 via [facility] with confusion and disorientation. 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 He states that he has not had any alcohol for 2 months and he occasionally smokes cigarettes when he is able to locate some. Per ED provider his house was reported to be very unkempt with furniture tossed about. [facility] is aware of the situation and has been in contact with ED provider. It is felt is unsafe for him to return home. He was hospitalized at [facility] in [place] from 05/06/2020-05/18/2020. During that time he underwent an EGD with esophageal banding x6 due to esophageal varices with bleeding. He also underwent paracentesis by IR on 05/13/2020 with 3010mL of star colored ascites output. Per the discharge notes he was discharged on 30ml of TID lactulose, 400mg daily of magnesium oxide, 25mg of PRN meclizine, 3mg of PRN melatonin at bedtime, 1 tablet MV daily,100mg thiamine tablet daily, 30mg PO Lasix daily, 50mg of spironolactone daily, 1-2 tablets of of 5mg oxycodone PRN TID, and Effexor 37.5mg daily. Per the patient he has not been able to remember to take these medications and has therefore stopped taking them altogether. In the ED here he was noted to have red and warm lower extremities. He reports difficulty getting to the bathroom and ambulating. 12-Lead EKG was obtained showing a sinus rhythm at 75 bpm with occasional PACs. P wave is enlarged and there is early QRS transition in V2. Nonspecific T wave flattening is noted in aVL and QT interval is moderately prolonged. Vital signs show a temp of 36.3. Pulse 76. Respirations 18. Blood pressure 89/43. Pulse ox 99. Patient denies any fevers at home. Labs are obtained showing a WBC of 5.60. RBC is 2.6. Hemoglobin 8.9. He is macrocytic. Platelets are low at 74,000. Neutrophils are normal at 63.2%. UA is negative however 1+ urine bilirubin and 4.0 urine urobilinogen is noted. SARS-CoV-2 RNA screen is negative. INR is 1.87. Sodium is very low at 122. Potassium is 3.9. Chloride is 88. Carbon dioxide is 25. Anion gap is 12.9. BUN is 21. Creatinine 1.1. GFR is greater than 60. Glucose is 111. Calcium 8.8. Bilirubin is very high at 8.7. AST is 65, ALT 69, alkaline phosphatase 96. Ammonia is slightly high at 37. Troponin is within normal limits at 0.038. CRP is slightly elevated at 1.7. Protein is good at 6.6. Albumin is low at 2.4. ESR is 14. Lactic acid is high at 2.7. Magnesium is 1.9. proBNP is 467. Ethyl alcohol is 0.00. Chest x-ray is obtained and shows no acute cardiopulmonary disease process. He is given 1 mg of Xanax, 40 mg IV push of Lasix, 25 mg p.o. spironolactone, and started on vancomycin. He is also started on IV fluids. Unfortunately ED provider is unable to find patient a bed at our facility or anywhere else in the state till the next day. Patient is then admitted to our facility. Prior to admission labs were rechecked. White count remains normal. Platelets are decreased to 57,000. Sodium is increased to 128. Potassium decreased to 3.3. Bilirubin has improved to 8.3. Liver enzymes remain stable. He he is subsequently admitted to the medical floor for management of his bilateral lower extremity cellulitis and to obtain placement due to patient's failure to thrive. He carries a history of ascites, liver cirrhosis, esophageal varices with banding, diverticulosis, addiction, anxiety, depression, tobacco use disorder. Is a DNR/DNI. His PCP is Dr. Mccollum. - Related Data Allergies/Adverse Reactions: Allergies Allergy/AdvReac Type Severity Reaction Status Date / Time No Known Allergies Allergy Verified 07/13/20 12:29 Home Medications: Home Meds Folic Acid 1 mg PO DAILY 07/13/20 [History] Furosemide [Lasix] 40 mg PO DAILY 07/13/20 [History] Lactulose 30 ml PO TID 07/13/20 [History] Magnesium Oxide 400 mg PO DAILY 07/13/20 [History] Meclizine [Antivert] 25 mg PO Q4HR PRN 07/13/20 [History] Melatonin 3 mg PO BEDTIME PRN 07/13/20 [History] Multivitamin 1 tab PO DAILY 07/13/20 [History] Spironolactone 50 mg PO DAILY 07/13/20 [History] Thiamine [Vitamin B-1] 100 mg PO DAILY 07/13/20 [History] Venlafaxine [Effexor] 37.5 mg PO BID 07/13/20 [History] oxyCODONE 5 - 10 mg PO Q6H PRN 07/13/20 [History] Past Medical History HEENT History: Reports: Impaired Vision Other HEENT History: wears eyeglasses, states has had sinus infection for past 3 yrs. Cardiovascular History: Reports: Hypertension Other Cardiovascular History: states BP always elevated but not formally Dx'd. Respiratory History: Reports: Other (See Below) Other Respiratory History: coughing up blood daily, pt self-diagnosing with lung cancer. Gastrointestinal History: Reports: Cirrhosis, Diverticulosis Musculoskeletal History: Reports: Other (See Below) Other Musculoskeletal History: states has "pinched nerve" to L4. Neurological History: Reports: Concussion, Other (See Below) (hepatic encephalopathy.) Psychiatric History: Reports: Addiction, Anxiety, Depression Endocrine/Metabolic History: Reports: Obesity/BMI 30+ - Past Surgical History HEENT Surgical History: Reports: Tonsillectomy GI Surgical History: Reports: Appendectomy, Hernia, Inguinal Neurological Surgical History: Reports: C-Spine Musculoskeletal Surgical History: Reports: Other (See Below) Other Musculoskeletal Surgeries/Procedures:: neck fusion. Dermatological Surgical History: Reports: Skin Graft Social & Family History - Family History Family Medical History: No Pertinent Family History - Tobacco Use Tobacco Use Status *Q: Current Every Day Tobacco User (2-5 per day.) Years of Tobacco use: 42 Packs/Tins Daily: 1 - Caffeine Use Caffeine Use: Reports: None - Recreational Drug Use Recreational Drug Use: No - Living Situation & Occupation Living situation: Reports: Alone Occupation: Unemployed H&P Review of Systems - Review of Systems: Review Of Systems: See Below General: Reports: Chills, Malaise, Weakness, Fatigue, Decreased Appetite, Weight Loss. Denies: Fever HEENT: Reports: No Symptoms. Denies: Ear Pain, Eye Pain, Headaches, Sore Throat Pulmonary: Reports: No Symptoms, Shortness of Breath, Wheezing, Cough. Denies: Pleuritic Chest Pain, Sputum Cardiovascular: Reports: No Symptoms, Dyspnea on Exertion, Edema, Blood Pressure Problem. Denies: Chest Pain, Palpitations, Lightheadedness Gastrointestinal: Reports: No Symptoms. Denies: Abdominal Pain, Black Stool, Bloody Stool, Diarrhea, Difficulty Swallowing, Hematemesis, Nausea, Vomiting Genitourinary: Reports: Frequency (2/2 lasix). Denies: Dysuria, Burning, Pain, Urgency Musculoskeletal: Reports: Neck Pain, Shoulder Pain, Back Pain, Leg Pain Skin: Reports: No Symptoms, Jaundice, Erythema (bilateral LE), Wound Psychiatric: Reports: Confusion, Depression. Denies: Agitation Neurological: Reports: Pre-Existing Deficit, Difficulty Walking, Weakness, Gait Disturbance. Denies: Headache, Numbness, Tingling Hematologic/Lymphatic: Reports: Anemia, Easy Bleeding, Easy Bruising Immunologic: Reports: No Symptoms Exam - Exam Exam: See Below - Vital Signs Vital Signs: Last Vital Signs Temp 97.4 F 07/12/20 18:20 Pulse 76 07/12/20 18:47 Resp 18 07/12/20 18:47 BP 89/43 L 07/12/20 18:47 Pulse Ox 99 07/12/20 18:47 Weight: 139 lb - Exam Quality Assessment: No: DVT Prophylaxis (Contraindicated ) General: Alert, Cooperative, Mild Distress. No: Oriented HEENT: Conjunctiva Clear, EACs Clear, EOMI, Mucosa Moist & [place], Posterior Pharynx Clear Neck: Supple, Trachea Midline Lungs: Clear to Auscultation, Normal Respiratory Effort Cardiovascular: Regular Rate, Regular Rhythm GI/Abdominal Exam: Normal Bowel Sounds, Soft, Non-Tender, No Distention (Male) Exam: Deferred Rectal (Males) Exam: Deferred Back Exam: Normal Inspection, Decreased Range of Motion Extremities: Pedal Edema (Bilateral L>>R), Leg Pain, Limited Range of Motion (2/2 pain ), Increased Warmth, Redness. No: Normal Inspection Skin: Warm, Dry, Intact Neurological: Cranial Nerves Intact (Grossly ) Neuro Extensive - Mental Status: Alert. No: Oriented x3 Psychiatric: Depressed. No: Anxious, Agitated - Patient Data Lab Results Last 24 hrs: Laboratory Results - last 24 hr 07/12/20 07/12/20 07/12/20 Range/Units 16:10 16:34 16:41 WBC 5.60 (4.23-9.07) K/mm3 RBC 2.60 L (4.63-6.08) M/mm3 Hgb 8.9 L (13.7-17.5) gm/dl Hct 24.7 L (40.1-51.0) % MCV 95.0 H D (79.0-92.2) fl MCH 34.2 H (25.7-32.2) pg MCHC 36.0 H (32.2-35.5) g/dl RDW Std Deviation 60.5 H (35.1-43.9) fL Plt Count 74 L (163-337) K/mm3 MPV 10.0 (9.4-12.3) fl Neut % (Auto) 63.2 (34.0-67.9) % Lymph % (Auto) 19.5 L (21.8-53.1) % Thomas % (Auto) 15.7 H (5.3-12.2) % Eos % (Auto) 1.1 (0.8-7.0) Baso % (Auto) 0.5 (0.1-1.2) % Neut # (Auto) 3.54 (1.78-5.38) K/mm3 Lymph # (Auto) 1.09 L (1.32-3.57) K/mm3 Thomas # (Auto) 0.88 H (0.30-0.82) K/mm3 Eos # (Auto) 0.06 (0.04-0.54) K/mm3 Baso # (Auto) 0.03 (0.01-0.08) K/mm3 Manual Slide Review ESR (0-15) mm/hr PT (9.7-12.0) SECONDS INR APTT (21.7-31.4) SECONDS Sodium (136-145) mEq/L Potassium (3.5-5.1) mEq/L Chloride (98-107) mEq/L Carbon Dioxide (21-32) mEq/L Anion Gap (5-15) BUN (7-18) mg/dL Creatinine (0.7-1.3) mg/dL Est Cr Clr Drug Dosing Estimated GFR (MDRD) (>60) mL/min BUN/Creatinine Ratio (14-18) Glucose (80-115) mg/dL Lactic Acid (0.4-2.0) mmol/L Calcium (8.5-10.1) mg/dL Magnesium (1.8-2.4) mg/dl Total Bilirubin (0.2-1.0) mg/dL AST (15-37) U/L ALT (16-63) U/L Alkaline Phosphatase (46-116) U/L Ammonia (11-32) umol/L Troponin I (0.00-0.056) ng/mL C-Reactive Protein (<1.0) mg/dL NT-Pro-B Natriuret Pep (0-125) pg/mL Total Protein (6.4-8.2) g/dl Albumin (3.4-5.0) g/dl Globulin gm/dL Albumin/Globulin Ratio (1-2) Urine Color Yellow (Yellow) Urine Appearance Clear (Clear) Urine pH 5.5 (5.0-8.0) Ur Specific [place] 1.025 (1.005-1.030) Urine Protein Negative (Negative) Urine Glucose (UA) Negative (Negative) Urine Ketones Negative (Negative) Urine Occult Blood Negative (Negative) Urine Nitrite Negative (Negative) Urine Bilirubin 1+ H (Negative) Urine Urobilinogen 4.0 H (0.2-1.0) Ur Leukocyte Esterase Negative (Negative) Urine RBC 0-5 (0-5) /hpf Urine WBC 0-5 (0-5) /hpf Ur Squamous Epith Cells 0-5 (0-5) /hpf Urine Bacteria Few (FEW) /hpf Urine Mucus Few (FEW) /hpf Ethyl Alcohol (0.00) gm% SARS-CoV-2 RNA (ARTEMIO) Negative (NEGATIVE) 07/12/20 07/12/20 07/12/20 Range/Units 16:41 16:41 16:41 WBC (4.23-9.07) K/mm3 RBC (4.63-6.08) M/mm3 Hgb (13.7-17.5) gm/dl Hct (40.1-51.0) % MCV (79.0-92.2) fl MCH (25.7-32.2) pg MCHC (32.2-35.5) g/dl RDW Std Deviation (35.1-43.9) fL Plt Count (163-337) K/mm3 MPV (9.4-12.3) fl Neut % (Auto) (34.0-67.9) % Lymph % (Auto) (21.8-53.1) % Thomas % (Auto) (5.3-12.2) % Eos % (Auto) (0.8-7.0) Baso % (Auto) (0.1-1.2) % Neut # (Auto) (1.78-5.38) K/mm3 Lymph # (Auto) (1.32-3.57) K/mm3 Thomas # (Auto) (0.30-0.82) K/mm3 Eos # (Auto) (0.04-0.54) K/mm3 Baso # (Auto) (0.01-0.08) K/mm3 Manual Slide Review ESR (0-15) mm/hr PT 19.8 H (9.7-12.0) SECONDS INR 1.87 APTT 47.8 H (21.7-31.4) SECONDS Sodium 122 L D (136-145) mEq/L Potassium 3.9 (3.5-5.1) mEq/L Chloride 88 L D (98-107) mEq/L Carbon Dioxide 25 D (21-32) mEq/L Anion Gap 12.9 (5-15) BUN 21 H (7-18) mg/dL Creatinine 1.1 (0.7-1.3) mg/dL Est Cr Clr Drug Dosing TNP Estimated GFR (MDRD) > 60 (>60) mL/min BUN/Creatinine Ratio 19.1 H (14-18) Glucose 111 (80-115) mg/dL Lactic Acid (0.4-2.0) mmol/L Calcium 8.8 (8.5-10.1) mg/dL Magnesium (1.8-2.4) mg/dl Total Bilirubin 8.7 H (0.2-1.0) mg/dL AST 65 H (15-37) U/L ALT 69 H (16-63) U/L Alkaline Phosphatase 96 (46-116) U/L Ammonia 37 H (11-32) umol/L Troponin I 0.038 (0.00-0.056) ng/mL C-Reactive Protein 1.7 H* (<1.0) mg/dL NT-Pro-B Natriuret Pep (0-125) pg/mL Total Protein 6.6 (6.4-8.2) g/dl Albumin 2.4 L (3.4-5.0) g/dl Globulin 4.2 gm/dL Albumin/Globulin Ratio 0.6 L (1-2) Urine Color (Yellow) Urine Appearance (Clear) Urine pH (5.0-8.0) Ur Specific [place] (1.005-1.030) Urine Protein (Negative) Urine Glucose (UA) (Negative) Urine Ketones (Negative) Urine Occult Blood (Negative) Urine Nitrite (Negative) Urine Bilirubin (Negative) Urine Urobilinogen (0.2-1.0) Ur Leukocyte Esterase (Negative) Urine RBC (0-5) /hpf Urine WBC (0-5) /hpf Ur Squamous Epith Cells (0-5) /hpf Urine Bacteria (FEW) /hpf Urine Mucus (FEW) /hpf Ethyl Alcohol (0.00) gm% SARS-CoV-2 RNA (ARTEMIO) (NEGATIVE) 07/12/20 07/12/20 07/12/20 Range/Units 16:41 16:41 16:41 WBC (4.23-9.07) K/mm3 RBC (4.63-6.08) M/mm3 Hgb (13.7-17.5) gm/dl Hct (40.1-51.0) % MCV (79.0-92.2) fl MCH (25.7-32.2) pg MCHC (32.2-35.5) g/dl RDW Std Deviation (35.1-43.9) fL Plt Count (163-337) K/mm3 MPV (9.4-12.3) fl Neut % (Auto) (34.0-67.9) % Lymph % (Auto) (21.8-53.1) % Thomas % (Auto) (5.3-12.2) % Eos % (Auto) (0.8-7.0) Baso % (Auto) (0.1-1.2) % Neut # (Auto) (1.78-5.38) K/mm3 Lymph # (Auto) (1.32-3.57) K/mm3 Thomas # (Auto) (0.30-0.82) K/mm3 Eos # (Auto) (0.04-0.54) K/mm3 Baso # (Auto) (0.01-0.08) K/mm3 Manual Slide Review ESR 14 (0-15) mm/hr PT (9.7-12.0) SECONDS INR APTT (21.7-31.4) SECONDS Sodium (136-145) mEq/L Potassium (3.5-5.1) mEq/L Chloride (98-107) mEq/L Carbon Dioxide (21-32) mEq/L Anion Gap (5-15) BUN (7-18) mg/dL Creatinine (0.7-1.3) mg/dL Est Cr Clr Drug Dosing Estimated GFR (MDRD) (>60) mL/min BUN/Creatinine Ratio (14-18) Glucose (80-115) mg/dL Lactic Acid 2.7 H* (0.4-2.0) mmol/L Calcium (8.5-10.1) mg/dL Magnesium 1.9 (1.8-2.4) mg/dl Total Bilirubin (0.2-1.0) mg/dL AST (15-37) U/L ALT (16-63) U/L Alkaline Phosphatase (46-116) U/L Ammonia (11-32) umol/L Troponin I (0.00-0.056) ng/mL C-Reactive Protein (<1.0) mg/dL NT-Pro-B Natriuret Pep (0-125) pg/mL Total Protein (6.4-8.2) g/dl Albumin (3.4-5.0) g/dl Globulin gm/dL Albumin/Globulin Ratio (1-2) Urine Color (Yellow) Urine Appearance (Clear) Urine pH (5.0-8.0) Ur Specific [place] (1.005-1.030) Urine Protein (Negative) Urine Glucose (UA) (Negative) Urine Ketones (Negative) Urine Occult Blood (Negative) Urine Nitrite (Negative) Urine Bilirubin (Negative) Urine Urobilinogen (0.2-1.0) Ur Leukocyte Esterase (Negative) Urine RBC (0-5) /hpf Urine WBC (0-5) /hpf Ur Squamous Epith Cells (0-5) /hpf Urine Bacteria (FEW) /hpf Urine Mucus (FEW) /hpf Ethyl Alcohol (0.00) gm% SARS-CoV-2 RNA (ARTEMIO) (NEGATIVE) 07/12/20 07/12/20 07/13/20 Range/Units 16:41 16:41 08:40 WBC 5.82 (4.23-9.07) K/mm3 RBC 2.85 L (4.63-6.08) M/mm3 Hgb 9.6 L (13.7-17.5) gm/dl Hct 26.8 L (40.1-51.0) % MCV 94.0 H (79.0-92.2) fl MCH 33.7 H (25.7-32.2) pg MCHC 35.8 H (32.2-35.5) g/dl RDW Std Deviation 60.1 H (35.1-43.9) fL Plt Count 57 L (163-337) K/mm3 MPV 9.2 L (9.4-12.3) fl Neut % (Auto) 70.2 H (34.0-67.9) % Lymph % (Auto) 15.8 L (21.8-53.1) % Thomas % (Auto) 12.9 H (5.3-12.2) % Eos % (Auto) 0.9 (0.8-7.0) Baso % (Auto) 0.2 (0.1-1.2) % Neut # (Auto) 4.09 (1.78-5.38) K/mm3 Lymph # (Auto) 0.92 L (1.32-3.57) K/mm3 Thomas # (Auto) 0.75 (0.30-0.82) K/mm3 Eos # (Auto) 0.05 (0.04-0.54) K/mm3 Baso # (Auto) 0.01 (0.01-0.08) K/mm3 Manual Slide Review Abnormal smear ESR (0-15) mm/hr PT (9.7-12.0) SECONDS INR APTT (21.7-31.4) SECONDS Sodium (136-145) mEq/L Potassium (3.5-5.1) mEq/L Chloride (98-107) mEq/L Carbon Dioxide (21-32) mEq/L Anion Gap (5-15) BUN (7-18) mg/dL Creatinine (0.7-1.3) mg/dL Est Cr Clr Drug Dosing Estimated GFR (MDRD) (>60) mL/min BUN/Creatinine Ratio (14-18) Glucose (80-115) mg/dL Lactic Acid (0.4-2.0) mmol/L Calcium (8.5-10.1) mg/dL Magnesium (1.8-2.4) mg/dl Total Bilirubin (0.2-1.0) mg/dL AST (15-37) U/L ALT (16-63) U/L Alkaline Phosphatase (46-116) U/L Ammonia (11-32) umol/L Troponin I (0.00-0.056) ng/mL C-Reactive Protein (<1.0) mg/dL NT-Pro-B Natriuret Pep 467 H (0-125) pg/mL Total Protein (6.4-8.2) g/dl Albumin (3.4-5.0) g/dl Globulin gm/dL Albumin/Globulin Ratio (1-2) Urine Color (Yellow) Urine Appearance (Clear) Urine pH (5.0-8.0) Ur Specific [place] (1.005-1.030) Urine Protein (Negative) Urine Glucose (UA) (Negative) Urine Ketones (Negative) Urine Occult Blood (Negative) Urine Nitrite (Negative) Urine Bilirubin (Negative) Urine Urobilinogen (0.2-1.0) Ur Leukocyte Esterase (Negative) Urine RBC (0-5) /hpf Urine WBC (0-5) /hpf Ur Squamous Epith Cells (0-5) /hpf Urine Bacteria (FEW) /hpf Urine Mucus (FEW) /hpf Ethyl Alcohol 0.00 (0.00) gm% SARS-CoV-2 RNA (ARTEMIO) (NEGATIVE) 07/13/20 Range/Units 08:40 WBC (4.23-9.07) K/mm3 RBC (4.63-6.08) M/mm3 Hgb (13.7-17.5) gm/dl Hct (40.1-51.0) % MCV (79.0-92.2) fl MCH (25.7-32.2) pg MCHC (32.2-35.5) g/dl RDW Std Deviation (35.1-43.9) fL Plt Count (163-337) K/mm3 MPV (9.4-12.3) fl Neut % (Auto) (34.0-67.9) % Lymph % (Auto) (21.8-53.1) % Thomas % (Auto) (5.3-12.2) % Eos % (Auto) (0.8-7.0) Baso % (Auto) (0.1-1.2) % Neut # (Auto) (1.78-5.38) K/mm3 Lymph # (Auto) (1.32-3.57) K/mm3 Thomas # (Auto) (0.30-0.82) K/mm3 Eos # (Auto) (0.04-0.54) K/mm3 Baso # (Auto) (0.01-0.08) K/mm3 Manual Slide Review ESR (0-15) mm/hr PT (9.7-12.0) SECONDS INR APTT (21.7-31.4) SECONDS Sodium 128 L (136-145) mEq/L Potassium 3.3 L (3.5-5.1) mEq/L Chloride 93 L (98-107) mEq/L Carbon Dioxide 24 (21-32) mEq/L Anion Gap 14.3 (5-15) BUN 17 (7-18) mg/dL Creatinine 0.9 (0.7-1.3) mg/dL Est Cr Clr Drug Dosing 72.97 Estimated GFR (MDRD) > 60 (>60) mL/min BUN/Creatinine Ratio 18.9 H (14-18) Glucose 107 (80-115) mg/dL Lactic Acid (0.4-2.0) mmol/L Calcium 8.4 L (8.5-10.1) mg/dL Magnesium (1.8-2.4) mg/dl Total Bilirubin 8.3 H (0.2-1.0) mg/dL AST 64 H (15-37) U/L ALT 66 H (16-63) U/L Alkaline Phosphatase 88 (46-116) U/L Ammonia (11-32) umol/L Troponin I (0.00-0.056) ng/mL C-Reactive Protein (<1.0) mg/dL NT-Pro-B Natriuret Pep (0-125) pg/mL Total Protein 6.5 (6.4-8.2) g/dl Albumin 2.3 L (3.4-5.0) g/dl Globulin 4.2 gm/dL Albumin/Globulin Ratio 0.6 L (1-2) Urine Color (Yellow) Urine Appearance (Clear) Urine pH (5.0-8.0) Ur Specific [place] (1.005-1.030) Urine Protein (Negative) Urine Glucose (UA) (Negative) Urine Ketones (Negative) Urine Occult Blood (Negative) Urine Nitrite (Negative) Urine Bilirubin (Negative) Urine Urobilinogen (0.2-1.0) Ur Leukocyte Esterase (Negative) Urine RBC (0-5) /hpf Urine WBC (0-5) /hpf Ur Squamous Epith Cells (0-5) /hpf Urine Bacteria (FEW) /hpf Urine Mucus (FEW) /hpf Ethyl Alcohol (0.00) gm% SARS-CoV-2 RNA (ARTEMIO) (NEGATIVE) Result Diagrams: 07/13/20 08:40 07/13/20 08:40 Luis Results Last 24 hrs: Microbiology 07/12/20 17:18 Anaerobic Blood Culture - Final Blood - Venous - Lab Draw Sepsis Event Note - Evaluation Sepsis Screening Result: No Definite Risk *Q Meaningful Use (ADM) - VTE *Q VTE Mechanical Contraindications *Q: Bilateral Lower Dermatits VTE Pharmacological Contraindications *Q: Thrombocytopenia VTE Anticoagulation Contraindications: Medical/Procedure Contrai - Problem List (1) Tobacco use disorder SNOMED Code(s): 048291881 ICD Code: F17.200 - NICOTINE DEPENDENCE, UNSPECIFIED, UNCOMPLICATED Status: Chronic Priority: Medium Current Visit: No (2) History of alcohol abuse SNOMED Code(s): 947951149 ICD Code: F10.11 - ALCOHOL ABUSE, IN REMISSION Status: Chronic Priority: Medium Current Visit: No (3) Esophageal varices without bleeding SNOMED Code(s): 54094026 ICD Code: I85.00 - ESOPHAGEAL VARICES WITHOUT BLEEDING Status: Chronic Priority: Medium Current Visit: No Qualifiers: Esophageal varices type: unspecified type Qualified Code(s): I85.00 - Esophageal varices without bleeding (4) Failure to thrive SNOMED Code(s): 60603971 ICD Code: [id number] - Status: Acute Priority: High Current Visit: Yes Qualifiers: Failure to thrive age range: in adult Qualified Code(s): R62.7 - Adult failure to thrive (5) Difficulty walking SNOMED Code(s): 559719852 ICD Code: R26.2 - DIFFICULTY IN WALKING, NOT ELSEWHERE CLASSIFIED Status: Acute Priority: High Current Visit: Yes (6) Medical non-compliance SNOMED Code(s): 512952414 ICD Code: Z91.19 - PATIENT'S NONCOMPLIANCE W OTH MEDICAL TREATMENT AND [facility]ASSAN[facility]A MEN Status: Chronic Priority: High Current Visit: Yes (7) Serum ammonia increased SNOMED Code(s): 1086224 ICD Code: E72.20 - DISORDER OF UREA CYCLE METABOLISM, UNSPECIFIED Status: Chronic Priority: High Current Visit: Yes (8) Anemia SNOMED Code(s): 902220754 ICD Code: D64.9 - ANEMIA, UNSPECIFIED Status: Chronic Current Visit: Yes Qualifiers: Anemia type: bone marrow failure Bone marrow failure anemia type: unspecified bone marrow failure Qualified Code(s): D61.9 - Aplastic anemia, unspecified (9) Bilateral lower leg cellulitis SNOMED Code(s): 088228024 ICD Code: L03.116 - CELLULITIS OF LEFT LOWER LIMB; L03.115 - CELLULITIS OF RIGHT LOWER LIMB Status: Acute Priority: High Current Visit: Yes (10) Cirrhosis of liver SNOMED Code(s): 56606268 ICD Code: K74.60 - UNSPECIFIED CIRRHOSIS OF LIVER Status: Chronic Priority: High Current Visit: Yes Qualifiers: Hepatic cirrhosis type: alcoholic cirrhosis Ascites presence: with ascites Qualified Code(s): K70.31 - Alcoholic cirrhosis of liver with ascites (11) Dependent edema SNOMED Code(s): 610219812 ICD Code: R60.9 - EDEMA, UNSPECIFIED Status: Acute Priority: High Current Visit: Yes (12) Elevated INR SNOMED Code(s): 353896936 ICD Code: R79.1 - ABNORMAL COAGULATION PROFILE Status: Chronic Priority: Medium Current Visit: Yes (13) Hypokalemia SNOMED Code(s): 41475481 ICD Code: E87.6 - HYPOKALEMIA Status: Acute Priority: High Current Visit: Yes (14) Hyponatremia SNOMED Code(s): 63597933 ICD Code: E87.1 - HYPO-OSMOLALITY AND HYPONATREMIA Status: Acute Priority: High Current Visit: Yes (15) Thrombocytopenia SNOMED Code(s): 974368080 ICD Code: D69.6 - THROMBOCYTOPENIA, UNSPECIFIED Status: Chronic Priority: High Current Visit: Yes (16) Depression SNOMED Code(s): 10835825 ICD Code: F32.9 - MAJOR DEPRESSIVE DISORDER, SINGLE EPISODE, UNSPECIFIED Status: Chronic Priority: Medium Current Visit: Yes Qualifiers: Depression Type: other depression Qualified Code(s): F32.89 - Other specified depressive episodes (17) Hepatic encephalopathy SNOMED Code(s): 07336726 ICD Code: K72.90 - HEPATIC FAILURE, UNSPECIFIED WITHOUT COMA Status: Acute Priority: High Current Visit: Yes (18) Lactic acidosis SNOMED Code(s): 58964869 ICD Code: E87.2 - ACIDOSIS Status: Acute Priority: High Current Visit: Yes Problem List Initiated/Reviewed/Updated: Yes Orders Last 24hrs: Active Orders 24 hr Category Date Time Status Patient Status [ADT] Routine ADT 07/13/20 10:07 Ordered Cardiac Monitoring [RC] CONTINUOUS Care 07/13/20 10:08 Ordered EKG Documentation Completion [RC] STAT Care 07/12/20 16:09 Active Height and Weight [RC] DAILY Care 07/13/20 10:07 Ordered Intake and Output [RC] QSHIFT Care 07/13/20 10:08 Ordered Oxygen Therapy [RC] PRN Care 07/13/20 10:07 Ordered Pulse Oximetry [RC] PRN Care 07/13/20 10:08 Ordered Up With Assistance [RC] ASDIRECTED Care 07/13/20 10:07 Ordered VTE/DVT Education [RC] PER UNIT ROUTINE Care 07/13/20 10:07 Ordered Vital Signs [RC] Q4H Care 07/13/20 10:07 Ordered Consult to Case Management/Actuarial Intern [CONS] Cons 07/13/20 10:07 Ordered Routine Consult to Candle Extrusion Machine Operator [CONS] Routine Cons 07/13/20 10:07 Ordered Consult to Spiritual Care [CONS] Routine Cons 07/13/20 10:07 Ordered OT Evaluation and Treatment [CONS] Routine Cons 07/13/20 10:07 Ordered PT Evaluation and Treatment [CONS] Routine Cons 07/13/20 10:07 Ordered DEPUTY CHIEF EXECUTIVE Evaluation and Treatment [CONS] Routine Cons 07/13/20 10:07 Ordered Low Protein [Protein Restricted Diet] [DIET] Diet 07/13/20 Lunch Ordered AMMONIA VENOUS [CHEM] Routine Lab 07/14/20 05:11 Ordered CBC WITH AUTO DIFF [HEME] AM Lab 07/14/20 05:11 Ordered CBC WITH AUTO DIFF [HEME] AM Lab 07/15/20 05:11 Ordered CBC WITH AUTO DIFF [HEME] AM Lab 07/16/20 05:11 Ordered CBC WITH AUTO DIFF [HEME] AM Lab 07/17/20 05:11 Ordered CMP [COMPREHENSIVE METABOLIC PN,CMP] [CHEM] AM Lab 07/14/20 05:11 Ordered CMP [COMPREHENSIVE METABOLIC PN,CMP] [CHEM] AM Lab 07/15/20 05:11 Ordered CMP [COMPREHENSIVE METABOLIC PN,CMP] [CHEM] AM Lab 07/16/20 05:11 Ordered CMP [COMPREHENSIVE METABOLIC PN,CMP] [CHEM] AM Lab 07/17/20 05:11 Ordered CRP [C-REACTIVE PROTEIN] [CHEM] AM Lab 07/14/20 05:11 Ordered CRP [C-REACTIVE PROTEIN] [CHEM] AM Lab 07/15/20 05:11 Ordered CRP [C-REACTIVE PROTEIN] [CHEM] AM Lab 07/16/20 05:11 Ordered CRP [C-REACTIVE PROTEIN] [CHEM] AM Lab 07/17/20 05:11 Ordered CULTURE BLOOD [BC] Stat Lab 07/12/20 16:41 Received CULTURE BLOOD [BC] Stat Lab 07/12/20 17:18 Received LACTIC ACID [CHEM] Routine Lab 07/13/20 10:17 Ordered MAGNESIUM [CHEM] AM Lab 07/14/20 05:11 Ordered MAGNESIUM [CHEM] AM Lab 07/15/20 05:11 Ordered MAGNESIUM [CHEM] AM Lab 07/16/20 05:11 Ordered MAGNESIUM [CHEM] AM Lab 07/17/20 05:11 Ordered PROCALCITONIN [REF] Routine Lab 07/13/20 10:22 Ordered VANCOMYCIN TROUGH [CHEM] Timed Lab 07/15/20 10:00 Ordered ALPRAZolam [Xanax] Med 07/13/20 21:00 Ordered 1 mg PO BEDTIME Furosemide [Lasix] Med 07/14/20 09:00 Ordered 20 mg IVPUSH DAILY Lactulose [Cephulac] Med 07/12/20 21:00 Active 20 gm PO TID Ondansetron [Zofran] Med 07/13/20 10:07 Ordered 4 mg IV Q6H PRN Pharmacy to Dose - Vancomycin Med 07/13/20 10:15 Ordered 1 dose .XX ASDIRECTED Potassium Chloride [Klor-Con M20] Med 07/13/20 15:00 Ordered 40 meq PO TID Sodium Chloride 0.9% [Normal Saline] 1,000 ml Med 07/12/20 17:00 Active IV ASDIRECTED Spironolactone [Aldactone] Med 07/14/20 09:00 Ordered 25 mg PO DAILY Vancomycin [Vancocin] 1 gm Med 07/13/20 11:00 Active Sodium Chloride 0.9% [Normal Saline (AdvBag)] 250 ml IV Q12H Anticoagulation Contraindications VTE [AST] Click to Oth 07/13/20 10:24 Ordered Edit Blood Culture x2 Reflex Set [OM.PC] Stat Oth 07/12/20 16:10 Ordered Medication Orders Alprazolam (Xanax) 1 mg PO BEDTIME MELISSA Furosemide (Lasix) 20 mg IVPUSH DAILY MELISSA Sodium Chloride (Normal Saline) 1,000 mls @ 125 mls/hr IV ASDIRECTED MELISSA Last Admin: 07/12/20 17:03 Dose: 125 mls/hr Documented by: ANETTE Vancomycin HCl 1 gm/ Sodium (Chloride) 250 mls @ 250 mls/hr IV Q12H MELISSA Lactulose (Cephulac) 20 gm PO TID MELISSA Last Admin: 07/13/20 09:51 Dose: 20 gm Documented by: Admin: 07/12/20 21:23 Dose: 20 gm Documented by: SAY Ondansetron HCl (Zofran) 4 mg IV Q6H PRN PRN Reason: Nausea/Vomiting Potassium Chloride (Klor-Con M20) 40 meq PO TID MELISSA Stop: 07/14/20 09:01 Spironolactone (Aldactone) 25 mg PO DAILY MELISSA Vancomycin HCl (Pharmacy To Dose - Vancomycin) 1 dose .XX ASDIRECTED [facility] Assessment/Plan Comment:: Assessment: -64 yo Male who presents to ED on 07/12/20 with confusion and bilateral cellulitis -History of hepatic encephalopathy, End stage liver disease, ETOH abuse, Tobacco use, Esophageal varices with banding, depression, dependant edema -Patient admits to ED provider that he has not been taking his medications because he forgets -Denies any ETOH use for past 2 months (ETOH in ED was 0.00) -Kept in ED overnight due to bed shortage statewide and us being on diversion -Started on Vancomycin in ED -Given lactulose, spironolactone, lasix, IV fluids, Xanax, vancomycin in ED -No WBC in ED, although likely cannot mount immunologic defense due to alcoholic bone marrow suppression -Sepsis criteria: -Bilateral cellulitis, No tachycardia, tachypnea, WBC, or fever -Hypotension likely 2/2 end stage liver failure, Lactate >2 likely 2/2 chronic ETOH abuse, Bilirubin >2 chronically, Platelets <100 chronically, INR elevated 2/2 End stage liver disease -Does not meet criteria -Per ED provider social work states patient apartment was very unkempt -Social work reports patient has been known to leave water running and burners on in apartment. Patient is being evicted. PLAN: Bilateral cellulitis Dependant edema -Monitor WBC and CRP daily -Check admission procalcitonin and repeat in 48 hours -Continued vancomycin with pharmacy to dose -Start Rocephin Q24hr -Await blood cultures -IV fluids at 100 ml/hr - re-assess need in AM -Nursing to demarcate redness on legs Failure to thrive Hypokalemia Hyponatremia Medical non-compliance Hx/o hypomagnesemia -Consult CM/SW -DEPUTY CHIEF EXECUTIVE cognitive evaluation -Will likely need placement at discharge -Candle Extrusion Machine Operator consult -Monitor electrolytes/magnesium -Supplement magnesium -IV fluids as ordered History of ETOH abuse Hepatic encephalopathy End-stage ETOH related cirrhosis Elevated INR Elevated Bilirubin Hx/o esophageal varices Thrombocytopenia Anemia Elevated serum ammonia Hyperlactatemia -Lactulose 20mg TID -Start Lasix 20mg BID -Start spironolactone 50mg daily -Pharmacological DVT prophylaxis contraindicated -Re-check ammonia in AM -Monitor CBC -Start folic acid, MV, thiamine supplementation -Low protein diet -Consult paper sheeter -Direct bilirubin in AM -Due to end-stage cirrhosis we can expect BPs on the softer side -Re-check lactic acid in AM- hyperlactatemia is likely 2/2 to chronic ETOH abuse although cannot rule-out cellulitis involvement Depression -Dr. Powell consult -Resume home Effexor Tobacco use disorder -Cessation counseling at discharge -Nicotine patches Code status: DNR/DNI PCP: Dr. Mccollum DVT prophylaxis: Pharmacological prophylaxis contraindicated due to significant esophageal varices history, Elevated INR, thrombocytopenia. Mechanical prophylaxis contraindicated due to bilateral LE cellulitis, dependant LE edema. Disposition: Patient admitted due to cellulitis, electrolyte abnormalities, failure to thrive and need for placement. Social: Patient reportedly lives in an apartment. [facility] Actuarial Intern is following patient. Patient has history of leaving water running and forgetting to turn of burner. Per ED note apartment is very unkempt and there are concerns for patient safety. SW/CM consulted. Prognosis: Overall poor prognosis due to end-stage ETOH cirrhosis. - Mortality Measure Prognosis:: Poor
[2020-07-13] MEDS: cefTRIAXone 2 GM in Sodium Chloride 0.9% 100 ML IV SCH (15:20)
[2020-07-13] MEDS: Sodium Chloride 0.9% 1,000 ML IV SCH (15:20)
[2020-07-13] MEDS: Potassium Chloride 20 MEQ Tab.ER PO SCH ×2 (16:02→21:39)
[2020-07-13] MEDS: Nicotine 14 MG/24 Hr Patch TRDERM SCH (16:04)
[2020-07-13] MEDS: Thiamine 100 MG Tab PO SCH (16:15)
[2020-07-13] MEDS: Folic Acid 1 MG Tab PO SCH (16:15)
[2020-07-13] MEDS: Multivitamins,Therapeutic Tab PO SCH (16:15)
[2020-07-13] MEDS ORDERED: ALPRAZolam 1 MG Tab PO SCH (21:00)
[2020-07-13] MEDS ORDERED: Venlafaxine 37.5 MG Tab PO SCH (21:00)
[2020-07-13] MEDS: Magnesium Oxide 400 MG Tab PO SCH (21:40)
[2020-07-14] MEDS: Sodium Chloride 0.9% 1,000 ML IV SCH (00:04)
[2020-07-14] MEDS ORDERED: Furosemide 40 MG/4 ML VIAL IVPUSH SCH (09:00)
[2020-07-14] MEDS ORDERED: Spironolactone 25 MG Tab PO SCH (09:00)
[2020-07-14] MEDS ORDERED: Furosemide 20 MG/2 ML VIAL IVPUSH SCH (09:00)
[2020-07-14] MEDS: Lactulose Soln 10 GM/15 ML 30 ML UD Cup PO SCH ×3 (10:07→21:35)
[2020-07-14] MEDS: Thiamine 100 MG Tab PO SCH (10:09)
[2020-07-14] MEDS: Potassium Chloride 20 MEQ Tab.ER PO SCH (10:09)
[2020-07-14] MEDS: Multivitamins,Therapeutic Tab PO SCH (10:09)
[2020-07-14] MEDS: Magnesium Oxide 400 MG Tab PO SCH ×2 (10:09→21:35)
[2020-07-14] MEDS: Spironolactone 25 MG Tab PO SCH (10:09)
[2020-07-14] MEDS: Folic Acid 1 MG Tab PO SCH (10:10)
--- NOTE | 2020-07-14 12:33 | PCM.PN ---
- General Info Date of Service: 07/14/20 Admission Dx/Problem (Free Text): Admission Diagnosis/Problem Admission Diagnosis/Problem Cellulitis Subjective Update: Patient without any significant complaints. Functional Status: Reports: Pain Controlled - Review of Systems General: Reports: No Symptoms HEENT: Reports: No Symptoms Pulmonary: Reports: No Symptoms Cardiovascular: Reports: No Symptoms Gastrointestinal: Reports: Other (Full feeling) Musculoskeletal: Reports: No Symptoms Neurological: Reports: No Symptoms Psychiatric: Reports: No Symptoms - Patient Data Vitals - Most Recent: Last Vital Signs Temp 97.5 F 07/14/20 11:24 Pulse 70 07/14/20 11:24 Resp 16 07/14/20 11:24 BP 101/55 L 07/14/20 11:24 Pulse Ox 91 L 07/14/20 11:24 Weight - Most Recent: 185 lb 6.4 oz I&O - Last 24 Hours: Intake & Output 07/13/20 07/14/20 07/14/20 22:59 06:59 14:59 Intake Total 350 1605 Output Total 275 Balance 75 1605 Lab Results Last 24 Hours: Laboratory Results - last 24 hr 07/13/20 07/13/20 07/14/20 Range/Units 10:33 15:16 07:40 WBC 6.12 (4.23-9.07) K/mm3 RBC 2.84 L (4.63-6.08) M/mm3 Hgb 9.6 L (13.7-17.5) gm/dl Hct 27.2 L (40.1-51.0) % MCV 95.8 H (79.0-92.2) fl MCH 33.8 H (25.7-32.2) pg MCHC 35.3 (32.2-35.5) g/dl RDW Std Deviation 61.8 H (35.1-43.9) fL Plt Count 66 L (163-337) K/mm3 MPV 9.4 (9.4-12.3) fl Neut % (Auto) 66.7 (34.0-67.9) % Lymph % (Auto) 17.8 L (21.8-53.1) % [place] % (Auto) 14.2 H (5.3-12.2) % Eos % (Auto) 1.1 (0.8-7.0) Baso % (Auto) 0.2 (0.1-1.2) % Neut # (Auto) 4.08 (1.78-5.38) K/mm3 Lymph # (Auto) 1.09 L (1.32-3.57) K/mm3 [place] # (Auto) 0.87 H (0.30-0.82) K/mm3 Eos # (Auto) 0.07 (0.04-0.54) K/mm3 Baso # (Auto) 0.01 (0.01-0.08) K/mm3 Manual Slide Review Abnormal smear Sodium (136-145) mEq/L Potassium (3.5-5.1) mEq/L Chloride (98-107) mEq/L Carbon Dioxide (21-32) mEq/L Anion Gap (5-15) BUN (7-18) mg/dL Creatinine (0.7-1.3) mg/dL Est Cr Clr Drug Dosing mL/min Estimated GFR (MDRD) (>60) mL/min BUN/Creatinine Ratio (14-18) Glucose (80-115) mg/dL Lactic Acid 2.6 H* (0.4-2.0) mmol/L Calcium (8.5-10.1) mg/dL Magnesium (1.8-2.4) mg/dl Total Bilirubin (0.2-1.0) mg/dL Direct Bilirubin (0.0-0.2) mg/dl AST (15-37) U/L ALT (16-63) U/L Alkaline Phosphatase (46-116) U/L Ammonia (11-32) umol/L C-Reactive Protein (<1.0) mg/dL Total Protein (6.4-8.2) g/dl Albumin (3.4-5.0) g/dl Globulin gm/dL Albumin/Globulin Ratio (1-2) Procalcitonin 0.05 (<0.10) ng/mL SARS-CoV-2 RNA (ARTEMIO) (NEGATIVE) 07/14/20 07/14/20 07/14/20 Range/Units 07:40 07:40 10:30 WBC (4.23-9.07) K/mm3 RBC (4.63-6.08) M/mm3 Hgb (13.7-17.5) gm/dl Hct (40.1-51.0) % MCV (79.0-92.2) fl MCH (25.7-32.2) pg MCHC (32.2-35.5) g/dl RDW Std Deviation (35.1-43.9) fL Plt Count (163-337) K/mm3 MPV (9.4-12.3) fl Neut % (Auto) (34.0-67.9) % Lymph % (Auto) (21.8-53.1) % [place] % (Auto) (5.3-12.2) % Eos % (Auto) (0.8-7.0) Baso % (Auto) (0.1-1.2) % Neut # (Auto) (1.78-5.38) K/mm3 Lymph # (Auto) (1.32-3.57) K/mm3 [place] # (Auto) (0.30-0.82) K/mm3 Eos # (Auto) (0.04-0.54) K/mm3 Baso # (Auto) (0.01-0.08) K/mm3 Manual Slide Review Sodium 131 L (136-145) mEq/L Potassium 3.8 (3.5-5.1) mEq/L Chloride 98 (98-107) mEq/L Carbon Dioxide 24 (21-32) mEq/L Anion Gap 12.8 (5-15) BUN 15 (7-18) mg/dL Creatinine 0.9 (0.7-1.3) mg/dL Est Cr Clr Drug Dosing 79.46 mL/min Estimated GFR (MDRD) > 60 (>60) mL/min BUN/Creatinine Ratio 16.7 (14-18) Glucose 106 (80-115) mg/dL Lactic Acid (0.4-2.0) mmol/L Calcium 8.3 L (8.5-10.1) mg/dL Magnesium 1.9 (1.8-2.4) mg/dl Total Bilirubin 7.8 H (0.2-1.0) mg/dL Direct Bilirubin 3.80 H (0.0-0.2) mg/dl AST 63 H (15-37) U/L ALT 61 (16-63) U/L Alkaline Phosphatase 83 (46-116) U/L Ammonia 61 H (11-32) umol/L C-Reactive Protein 2.1 H* (<1.0) mg/dL Total Protein 6.2 L (6.4-8.2) g/dl Albumin 2.2 L (3.4-5.0) g/dl Globulin 4.0 gm/dL Albumin/Globulin Ratio 0.6 L (1-2) Procalcitonin (<0.10) ng/mL SARS-CoV-2 RNA (ARTEMIO) Negative (NEGATIVE) Luis Results Last 24 Hours: Microbiology 07/12/20 17:18 Aerobic Blood Culture - Preliminary Blood - Venous - Lab Draw NO GROWTH AFTER 1 DAY Anaerobic Blood Culture - Final 07/12/20 16:41 Aerobic Blood Culture - Preliminary Blood - Venous NO GROWTH AFTER 1 DAY Anaerobic Blood Culture - Preliminary NO GROWTH AFTER 1 DAY Med Orders - Current: Current Medications Folic Acid (Folic Acid) 1 mg PO DAILY [facility] Last Admin: 07/14/20 10:10 Dose: 1 mg Documented by: Furosemide (Lasix) 20 mg IVPUSH DAILY [facility] Last Admin: 07/14/20 10:10 Dose: 20 mg Documented by: Vancomycin HCl 1 gm/ Sodium (Chloride) 250 mls @ 250 mls/hr IV Q12H [facility] Last Admin: 07/14/20 10:10 Dose: 250 mls/hr Documented by: Ceftriaxone Sodium 2 gm/ (Sodium Chloride) 100 mls @ 200 mls/hr IV Q24H [facility] Last Admin: 07/13/20 15:20 Dose: 200 mls/hr Documented by: Sodium Chloride (Normal Saline) 1,000 mls @ 100 mls/hr IV ASDIRECTED [facility] Stop: 07/15/20 00:59 Last Admin: 07/14/20 00:04 Dose: 100 mls/hr Documented by: Lactulose (Cephulac) 20 gm PO TID [facility] Last Admin: 07/14/20 10:07 Dose: 20 gm Documented by: Magnesium Oxide (Magnesium Oxide) 400 mg PO BID [facility] Last Admin: 07/14/20 10:09 Dose: 400 mg Documented by: Melatonin (Melatonin) 3 mg PO BEDTIME PRN PRN Reason: insomnia Miscellaneous Information (Remove Patch) 0 ea TRDERM Q24H [facility] Multivitamins (Thera) 1 each PO DAILY [facility] Last Admin: 07/14/20 10:09 Dose: 1 each Documented by: Nicotine (Habitrol) 14 mg TRDERM Q24H [facility] Last Admin: 07/13/20 16:04 Dose: 14 mg Documented by: Ondansetron HCl (Zofran) 4 mg IV Q6H PRN PRN Reason: Nausea/Vomiting Spironolactone (Aldactone) 50 mg PO DAILY [facility] Last Admin: 07/14/20 10:09 Dose: 50 mg Documented by: Thiamine HCl (Vitamin B-1) 100 mg PO DAILY [facility] Last Admin: 07/14/20 10:09 Dose: 100 mg Documented by: Vancomycin HCl (Pharmacy To Dose - Vancomycin) 1 dose .XX ASDIRECTED [facility] Discontinued Medications Alprazolam (Xanax) 1 mg PO BEDTIME ONE Stop: 07/12/20 21:01 Last Admin: 07/12/20 21:24 Dose: 1 mg Documented by: Alprazolam (Xanax) 1 mg PO BEDTIME [facility] Furosemide (Lasix) 40 mg IVPUSH NOW ONE Stop: 07/12/20 19:17 Last Admin: 07/12/20 19:38 Dose: 40 mg Documented by: Furosemide (Lasix) 40 mg IVPUSH NOW ONE Stop: 07/13/20 09:15 Last Admin: 07/13/20 09:42 Dose: 40 mg Documented by: Furosemide (Lasix) 40 mg IVPUSH DAILY [facility] Sodium Chloride (Normal Saline) 1,000 mls @ 125 mls/hr IV ASDIRECTED [facility] Last Admin: 07/12/20 17:03 Dose: 125 mls/hr Documented by: Vancomycin HCl 1.5 gm/ Sodium (Chloride) 500 mls @ 250 mls/hr IV ONETIME ONE Stop: 07/12/20 19:21 Last Admin: 07/12/20 20:07 Dose: 250 mls/hr Documented by: Lactulose (Cephulac) 20 gm PO TID [facility] Last Admin: 07/13/20 15:46 Dose: Not Given Documented by: Potassium Chloride (Klor-Con M20) 40 meq PO TID MELISSA Stop: 07/14/20 09:01 Last Admin: 07/14/20 10:09 Dose: 40 meq Documented by: Spironolactone (Aldactone) 25 mg PO ONETIME ONE Stop: 07/12/20 19:18 Last Admin: 07/12/20 19:38 Dose: 25 mg Documented by: Spironolactone (Aldactone) 25 mg PO ONETIME ONE Stop: 07/13/20 09:16 Last Admin: 07/13/20 09:50 Dose: 25 mg Documented by: Spironolactone (Aldactone) 25 mg PO DAILY [facility] Venlafaxine HCl (Effexor) 37.5 mg PO BID MELISSA - Exam Quality Assessment: Supplemental Oxygen General: Alert HEENT: Pupils Equal, Mucous Membr. Moist/Rifle, Scleral Icterus Neck: Supple Lungs: Normal Respiratory Effort, Rales Cardiovascular: Regular Rate, Regular Rhythm GI/Abdominal Exam: Normal Bowel Sounds, Soft, Non-Tender, Distended Skin: Warm, Dry, Intact Psy/Mental Status: Alert, Normal Affect, Normal Mood Sepsis Event Note - Evaluation Sepsis Screening Result: No Definite Risk - Focused Exam Vital Signs: Vital Signs Temp Pulse Resp BP Pulse Ox Pulse Ox 07/14/20 11:24 97.5 F 70 16 101/55 L 91 L 07/14/20 10:08 92 L 07/14/20 09:13 91 L 07/14/20 07:26 97.5 F 76 18 149/99 H 92 L 07/14/20 04:26 97.2 F 79 18 95/45 L 97 - Problem List & Annotations (1) Cirrhosis of liver with ascites SNOMED Code(s): 87156262 Code(s): K74.60 - UNSPECIFIED CIRRHOSIS OF LIVER; R18.8 - OTHER ASCITES Status: Acute Current Visit: No Qualifiers: Hepatic cirrhosis type: alcoholic cirrhosis Qualified Code(s): K70.31 - Alcoholic cirrhosis of liver with ascites (2) Esophageal varices SNOMED Code(s): 71696201 Code(s): I85.00 - ESOPHAGEAL VARICES WITHOUT BLEEDING Status: Acute Current Visit: No - Problem List Review Problem List Initiated/Reviewed/Updated: Yes - My Orders Last 24 Hours: My Active Orders 07/14/20 11:55 LACTIC ACID [CHEM] Routine - Plan Plan:: Assessment: 07/13/2020 -64 yo Male who presents to ED on 07/12/20 with confusion and bilateral cellulitis -History of hepatic encephalopathy, End stage liver disease, ETOH abuse, Tobacco use, Esophageal varices with banding, depression, dependant edema -Patient admits to ED provider that he has not been taking his medications because he forgets -Denies any ETOH use for past 2 months (ETOH in ED was 0.00) -Kept in ED overnight due to bed shortage statewide and us being on diversion -Started on Vancomycin in ED -Given lactulose, spironolactone, lasix, IV fluids, Xanax, vancomycin in ED -No WBC in ED, although likely cannot mount immunologic defense due to alcoholic bone marrow suppression -Sepsis criteria: -Bilateral cellulitis, No tachycardia, tachypnea, WBC, or fever -Hypotension likely 2/2 end stage liver failure, Lactate >2 likely 2/2 chronic ETOH abuse, Bilirubin >2 chronically, Platelets <100 chronically, INR elevated 2/2 End stage liver disease -Does not meet criteria -Per ED provider social work states patient apartment was very unkempt -Social work reports patient has been known to leave water running and burners on in apartment. Patient is being evicted. 07/14/2020 * Small improvement in cellulitis * Procalcitonin was negative at 0.05 * White count 6.1 and CRP 2.1 * Lactic acid is chronically elevated due to liver disease at 2.6. Total bilirubin elevated at 7.8 and direct bilirubin 3.8 * Oxygen requirement has increased to 4 L/min * Sodium chronically low at 131 PLAN: Bilateral cellulitis Dependant edema Hypoxemia -Monitor WBC and CRP daily -Check admission procalcitonin and repeat in 48 hours -Continued vancomycin with pharmacy to dose -Continue Rocephin Q24hr -Await blood cultures -IV fluids at 100 ml/hr - re-assess need in AM -Nursing to demarcate redness on legs -Covid retesting negative -Get chest x-ray in the morning Failure to thrive Hypokalemia Hyponatremia Medical non-compliance Hx/o hypomagnesemia -Consult CM/SW -OPTOMETRY DOCTOR cognitive evaluation -Will likely need placement at discharge -Livestock Laborer consult -Monitor electrolytes/magnesium -Supplement magnesium -IV fluids as ordered History of ETOH abuse Hepatic encephalopathy End-stage ETOH related cirrhosis Elevated INR Elevated Bilirubin Hx/o esophageal varices Thrombocytopenia Anemia Elevated serum ammonia Hyperlactatemia -Lactulose 20mg TID -Continue Lasix 20mg BID -Continue spironolactone 50mg daily. Consider increasing to 100 mg daily -Pharmacological DVT prophylaxis contraindicated -Monitor CBC -Start folic acid, MV, thiamine supplementation -Low protein diet -Consult epic ambulatory analyst -Due to end-stage cirrhosis we can expect BPs on the lower side -hyperlactatemia is likely 2/2 to end-stage liver disease and chronic ETOH abuse. Procalcitonin was 0.05 ruling out sepsis. Depression -Dr. Powell consult -Resume home Effexor Tobacco use disorder -Cessation counseling at discharge -Nicotine patches Code status: DNR/DNI PCP: Dr. Mccollum DVT prophylaxis: Pharmacological prophylaxis contraindicated due to significant esophageal varices history, Elevated INR, thrombocytopenia. Mechanical prophylaxis contraindicated due to bilateral LE cellulitis, dependant LE edema. Disposition: Patient admitted due to cellulitis, electrolyte abnormalities, failure to thrive and need for placement. Social: Patient reportedly lives in an apartment. [facility] Lopper is following patient. Patient has history of leaving water running and forgetting to turn of burner. Per ED note apartment is very unkempt and there are concerns for patient safety. SW/CM consulted. Prognosis: Overall poor prognosis due to end-stage ETOH cirrhosis.
[2020-07-14] MEDS: cefTRIAXone 2 GM in Sodium Chloride 0.9% 100 ML IV SCH (14:38)
[2020-07-14] MEDS: Nicotine 14 MG/24 Hr Patch TRDERM SCH (17:02)
[2020-07-14] MEDS ORDERED: oxyCODONE 5 MG Tab PO PRN (20:54)
[2020-07-14] MEDS: Acetaminophen 325 MG Tab PO PRN (21:35)
[2020-07-14] MEDS: oxyCODONE 5 MG Tab PO PRN (21:36)
--- NOTE | 2020-07-15 08:08 | PCM.PN ---
- General Info Date of Service: 07/15/20 Admission Dx/Problem (Free Text): Admission Diagnosis/Problem Admission Diagnosis/Problem Cellulitis Functional Status: Reports: Pain Controlled, Tolerating Diet, Ambulating, Urinating - Review of Systems General: Reports: Weakness, Fatigue, Malaise, Chills, Other (Overall reports he feels better than on arrival ). Denies: Fever HEENT: Reports: No Symptoms. Denies: Headaches, Sore Throat Pulmonary: Reports: Shortness of Breath (Chronic ), Cough (Chronic ). Denies: Pleuritic Chest Pain, Sputum, Wheezing Cardiovascular: Reports: Dyspnea on Exertion, Edema. Denies: Chest Pain, Palpitations, Lightheadedness Gastrointestinal: Reports: No Symptoms. Denies: Abdominal Pain, Constipation, Diarrhea, Nausea, Vomiting Genitourinary: Reports: Incontinence. Denies: Pain Musculoskeletal: Reports: Back Pain Skin: Reports: Jaundice. Denies: Cyanosis Neurological: Reports: Confusion, Pre-Existing Deficit, Difficulty Walking, Weakness, Gait Disturbance. Denies: Headache, Numbness, Tingling Psychiatric: Reports: Confusion, Depression. Denies: Mood Lability, Anxiety, Agitation, Hallucinations - Patient Data Vitals - Most Recent: Last Vital Signs Temp 97.3 F 07/15/20 04:57 Pulse 79 07/15/20 04:57 Resp 18 07/15/20 04:57 BP 101/57 L 07/15/20 04:57 Pulse Ox 92 L 07/15/20 04:57 Weight - Most Recent: 187 lb I&O - Last 24 Hours: Intake & Output 07/14/20 07/15/20 07/15/20 22:59 06:59 14:59 Intake Total 1350 350 Balance 1350 350 Lab Results Last 24 Hours: Laboratory Results - last 24 hr 07/14/20 07/14/20 07/14/20 Range/Units 07:40 07:40 07:40 WBC 6.12 (4.23-9.07) K/mm3 RBC 2.84 L (4.63-6.08) M/mm3 Hgb 9.6 L (13.7-17.5) gm/dl Hct 27.2 L (40.1-51.0) % MCV 95.8 H (79.0-92.2) fl MCH 33.8 H (25.7-32.2) pg MCHC 35.3 (32.2-35.5) g/dl RDW Std Deviation 61.8 H (35.1-43.9) fL Plt Count 66 L (163-337) K/mm3 MPV 9.4 (9.4-12.3) fl Neut % (Auto) 66.7 (34.0-67.9) % Lymph % (Auto) 17.8 L (21.8-53.1) % [place] % (Auto) 14.2 H (5.3-12.2) % Eos % (Auto) 1.1 (0.8-7.0) Baso % (Auto) 0.2 (0.1-1.2) % Neut # (Auto) 4.08 (1.78-5.38) K/mm3 Lymph # (Auto) 1.09 L (1.32-3.57) K/mm3 [place] # (Auto) 0.87 H (0.30-0.82) K/mm3 Eos # (Auto) 0.07 (0.04-0.54) K/mm3 Baso # (Auto) 0.01 (0.01-0.08) K/mm3 Manual Slide Review Abnormal smear Sodium 131 L (136-145) mEq/L Potassium 3.8 (3.5-5.1) mEq/L Chloride 98 (98-107) mEq/L Carbon Dioxide 24 (21-32) mEq/L Anion Gap 12.8 (5-15) BUN 15 (7-18) mg/dL Creatinine 0.9 (0.7-1.3) mg/dL Est Cr Clr Drug Dosing 79.46 mL/min Estimated GFR (MDRD) > 60 (>60) mL/min BUN/Creatinine Ratio 16.7 (14-18) Glucose 106 (80-115) mg/dL Lactic Acid (0.4-2.0) mmol/L Calcium 8.3 L (8.5-10.1) mg/dL Magnesium 1.9 (1.8-2.4) mg/dl Total Bilirubin 7.8 H (0.2-1.0) mg/dL Direct Bilirubin 3.80 H (0.0-0.2) mg/dl AST 63 H (15-37) U/L ALT 61 (16-63) U/L Alkaline Phosphatase 83 (46-116) U/L Ammonia 61 H (11-32) umol/L C-Reactive Protein 2.1 H* (<1.0) mg/dL Total Protein 6.2 L (6.4-8.2) g/dl Albumin 2.2 L (3.4-5.0) g/dl Globulin 4.0 gm/dL Albumin/Globulin Ratio 0.6 L (1-2) SARS-CoV-2 RNA (ARTEMIO) (NEGATIVE) 07/14/20 07/14/20 07/15/20 Range/Units 10:30 11:55 06:15 WBC 7.19 (4.23-9.07) K/mm3 RBC 2.79 L (4.63-6.08) M/mm3 Hgb 9.5 L (13.7-17.5) gm/dl Hct 27.5 L (40.1-51.0) % MCV 98.6 H (79.0-92.2) fl MCH 34.1 H (25.7-32.2) pg MCHC 34.5 (32.2-35.5) g/dl RDW Std Deviation 66.2 H (35.1-43.9) fL Plt Count 60 L (163-337) K/mm3 MPV 9.7 (9.4-12.3) fl Neut % (Auto) 64.3 (34.0-67.9) % Lymph % (Auto) 22.4 (21.8-53.1) % [place] % (Auto) 10.2 (5.3-12.2) % Eos % (Auto) 2.5 (0.8-7.0) Baso % (Auto) 0.6 (0.1-1.2) % Neut # (Auto) 4.63 (1.78-5.38) K/mm3 Lymph # (Auto) 1.61 (1.32-3.57) K/mm3 [place] # (Auto) 0.73 (0.30-0.82) K/mm3 Eos # (Auto) 0.18 (0.04-0.54) K/mm3 Baso # (Auto) 0.04 (0.01-0.08) K/mm3 Manual Slide Review Abnormal smear Sodium (136-145) mEq/L Potassium (3.5-5.1) mEq/L Chloride (98-107) mEq/L Carbon Dioxide (21-32) mEq/L Anion Gap (5-15) BUN (7-18) mg/dL Creatinine (0.7-1.3) mg/dL Est Cr Clr Drug Dosing mL/min Estimated GFR (MDRD) (>60) mL/min BUN/Creatinine Ratio (14-18) Glucose (80-115) mg/dL Lactic Acid 2.6 H* (0.4-2.0) mmol/L Calcium (8.5-10.1) mg/dL Magnesium (1.8-2.4) mg/dl Total Bilirubin (0.2-1.0) mg/dL Direct Bilirubin (0.0-0.2) mg/dl AST (15-37) U/L ALT (16-63) U/L Alkaline Phosphatase (46-116) U/L Ammonia (11-32) umol/L C-Reactive Protein (<1.0) mg/dL Total Protein (6.4-8.2) g/dl Albumin (3.4-5.0) g/dl Globulin gm/dL Albumin/Globulin Ratio (1-2) SARS-CoV-2 RNA (ARTEMIO) Negative (NEGATIVE) 07/15/20 Range/Units 06:15 WBC (4.23-9.07) K/mm3 RBC (4.63-6.08) M/mm3 Hgb (13.7-17.5) gm/dl Hct (40.1-51.0) % MCV (79.0-92.2) fl MCH (25.7-32.2) pg MCHC (32.2-35.5) g/dl RDW Std Deviation (35.1-43.9) fL Plt Count (163-337) K/mm3 MPV (9.4-12.3) fl Neut % (Auto) (34.0-67.9) % Lymph % (Auto) (21.8-53.1) % [place] % (Auto) (5.3-12.2) % Eos % (Auto) (0.8-7.0) Baso % (Auto) (0.1-1.2) % Neut # (Auto) (1.78-5.38) K/mm3 Lymph # (Auto) (1.32-3.57) K/mm3 [place] # (Auto) (0.30-0.82) K/mm3 Eos # (Auto) (0.04-0.54) K/mm3 Baso # (Auto) (0.01-0.08) K/mm3 Manual Slide Review Sodium 133 L (136-145) mEq/L Potassium 4.3 (3.5-5.1) mEq/L Chloride 100 (98-107) mEq/L Carbon Dioxide 24 (21-32) mEq/L Anion Gap 13.3 (5-15) BUN 16 (7-18) mg/dL Creatinine 0.9 (0.7-1.3) mg/dL Est Cr Clr Drug Dosing 79.46 mL/min Estimated GFR (MDRD) > 60 (>60) mL/min BUN/Creatinine Ratio 17.8 (14-18) Glucose 93 (80-115) mg/dL Lactic Acid (0.4-2.0) mmol/L Calcium 8.6 (8.5-10.1) mg/dL Magnesium 2.1 (1.8-2.4) mg/dl Total Bilirubin 8.0 H (0.2-1.0) mg/dL Direct Bilirubin (0.0-0.2) mg/dl AST 55 H (15-37) U/L ALT 58 (16-63) U/L Alkaline Phosphatase 80 (46-116) U/L Ammonia (11-32) umol/L C-Reactive Protein 2.2 H* (<1.0) mg/dL Total Protein 6.3 L (6.4-8.2) g/dl Albumin 2.2 L (3.4-5.0) g/dl Globulin 4.1 gm/dL Albumin/Globulin Ratio 0.5 L (1-2) SARS-CoV-2 RNA (ARTEMIO) (NEGATIVE) Luis Results Last 24 Hours: Microbiology 07/12/20 17:18 Aerobic Blood Culture - Preliminary Blood - Venous - Lab Draw NO GROWTH AFTER 2 DAYS Anaerobic Blood Culture - Final 07/12/20 16:41 Aerobic Blood Culture - Preliminary Blood - Venous NO GROWTH AFTER 2 DAYS Anaerobic Blood Culture - Preliminary NO GROWTH AFTER 2 DAYS Med Orders - Current: Current Medications Acetaminophen (Tylenol) 650 mg PO Q4H PRN PRN Reason: Pain/Fever Last Admin: 07/14/20 21:35 Dose: 650 mg Documented by: Folic Acid (Folic Acid) 1 mg PO DAILY [facility] Last Admin: 07/14/20 10:10 Dose: 1 mg Documented by: Furosemide (Lasix) 20 mg IVPUSH DAILY [facility] Last Admin: 07/14/20 10:10 Dose: 20 mg Documented by: Vancomycin HCl 1 gm/ Sodium (Chloride) 250 mls @ 250 mls/hr IV Q12H [facility] Last Admin: 07/14/20 23:00 Dose: 250 mls/hr Documented by: Ceftriaxone Sodium 2 gm/ (Sodium Chloride) 100 mls @ 200 mls/hr IV Q24H [facility] Last Admin: 07/14/20 14:38 Dose: 200 mls/hr Documented by: Lactulose (Cephulac) 20 gm PO TID [facility] Last Admin: 07/14/20 21:35 Dose: 20 gm Documented by: Magnesium Oxide (Magnesium Oxide) 400 mg PO BID [facility] Last Admin: 07/14/20 21:35 Dose: 400 mg Documented by: Melatonin (Melatonin) 3 mg PO BEDTIME PRN PRN Reason: insomnia Miscellaneous Information (Remove Patch) 0 ea TRDERM Q24H [facility] Last Admin: 07/14/20 17:04 Dose: 14 ea Documented by: Multivitamins (Thera) 1 each PO DAILY [facility] Last Admin: 07/14/20 10:09 Dose: 1 each Documented by: Nicotine (Habitrol) 14 mg TRDERM Q24H [facility] Last Admin: 07/14/20 17:02 Dose: 14 mg Documented by: Ondansetron HCl (Zofran) 4 mg IV Q6H PRN PRN Reason: Nausea/Vomiting Oxycodone HCl (Oxycodone) 5 mg PO Q6H PRN PRN Reason: Pain (moderate 4-6) Oxycodone HCl (Oxycodone) 10 mg PO Q6H PRN PRN Reason: Pain (severe 7-10) Last Admin: 07/14/20 21:36 Dose: 10 mg Documented by: Spironolactone (Aldactone) 50 mg PO DAILY [facility] Last Admin: 07/14/20 10:09 Dose: 50 mg Documented by: Thiamine HCl (Vitamin B-1) 100 mg PO DAILY [facility] Last Admin: 07/14/20 10:09 Dose: 100 mg Documented by: Vancomycin HCl (Pharmacy To Dose - Vancomycin) 1 dose .XX ASDIRECTED MELISSA Discontinued Medications Alprazolam (Xanax) 1 mg PO BEDTIME ONE Stop: 07/12/20 21:01 Last Admin: 07/12/20 21:24 Dose: 1 mg Documented by: Alprazolam (Xanax) 1 mg PO BEDTIME MELISSA Furosemide (Lasix) 40 mg IVPUSH NOW ONE Stop: 07/12/20 19:17 Last Admin: 07/12/20 19:38 Dose: 40 mg Documented by: Furosemide (Lasix) 40 mg IVPUSH NOW ONE Stop: 07/13/20 09:15 Last Admin: 07/13/20 09:42 Dose: 40 mg Documented by: Furosemide (Lasix) 40 mg IVPUSH DAILY [facility] Sodium Chloride (Normal Saline) 1,000 mls @ 125 mls/hr IV ASDIRECTED [facility] Last Admin: 07/12/20 17:03 Dose: 125 mls/hr Documented by: Vancomycin HCl 1.5 gm/ Sodium (Chloride) 500 mls @ 250 mls/hr IV ONETIME ONE Stop: 07/12/20 19:21 Last Admin: 07/12/20 20:07 Dose: 250 mls/hr Documented by: Sodium Chloride (Normal Saline) 1,000 mls @ 100 mls/hr IV ASDIRECTED [facility] Stop: 07/15/20 00:59 Last Admin: 07/14/20 00:04 Dose: 100 mls/hr Documented by: Lactulose (Cephulac) 20 gm PO TID [facility] Last Admin: 07/13/20 15:46 Dose: Not Given Documented by: Oxycodone HCl (Oxycodone) 5 - 10 mg PO Q6H PRN PRN Reason: Pain Potassium Chloride (Klor-Con M20) 40 meq PO TID [facility] Stop: 07/14/20 09:01 Last Admin: 07/14/20 10:09 Dose: 40 meq Documented by: Spironolactone (Aldactone) 25 mg PO ONETIME ONE Stop: 07/12/20 19:18 Last Admin: 07/12/20 19:38 Dose: 25 mg Documented by: Spironolactone (Aldactone) 25 mg PO ONETIME ONE Stop: 07/13/20 09:16 Last Admin: 07/13/20 09:50 Dose: 25 mg Documented by: Spironolactone (Aldactone) 25 mg PO DAILY [facility] Venlafaxine HCl (Effexor) 37.5 mg PO BID MELISSA - Exam Quality Assessment: Supplemental Oxygen (3L ). No: DVT Prophylaxis General: Alert, Cooperative, No Acute Distress. No: Oriented HEENT: Pupils Equal, Pupils Reactive, Mucous Membr. Moist/[employer], Scleral Icterus Neck: Supple, Trachea Midline Lungs: Normal Respiratory Effort, Decreased Breath Sounds, Rales Cardiovascular: Regular Rate, Regular Rhythm GI/Abdominal Exam: Normal Bowel Sounds, Soft, Non-Tender, Distended (Male) Exam: Scrotal Swelling Back Exam: Normal Inspection, Decreased Range of Motion Extremities: Pedal Edema (improving R>>L), Leg Pain, Limited Range of Motion (2/2 pain ), Increased Warmth (improving ), Redness (improving ) Skin: Warm, Dry, Intact Neurological: No New Focal Deficit Psy/Mental Status: Alert Sepsis Event Note - Evaluation Sepsis Screening Result: No Definite Risk - Problem List & Annotations (1) Tobacco use disorder SNOMED Code(s): 103679802 Code(s): F17.200 - NICOTINE DEPENDENCE, UNSPECIFIED, UNCOMPLICATED Status: Chronic Priority: Medium Current Visit: No (2) History of alcohol abuse SNOMED Code(s): 056360310 Code(s): F10.11 - ALCOHOL ABUSE, IN REMISSION Status: Chronic Priority: Medium Current Visit: No (3) Esophageal varices without bleeding SNOMED Code(s): 55294994 Code(s): I85.00 - ESOPHAGEAL VARICES WITHOUT BLEEDING Status: Chronic Priority: Medium Current Visit: No Qualifiers: Esophageal varices type: unspecified type Qualified Code(s): I85.00 - Esophageal varices without bleeding (4) Failure to thrive SNOMED Code(s): 83271363 Code(s): TIN7200 - Status: Acute Priority: High Current Visit: Yes Qualifiers: Failure to thrive age range: in adult Qualified Code(s): R62.7 - Adult failure to thrive (5) Difficulty walking SNOMED Code(s): 219049342 Code(s): R26.2 - DIFFICULTY IN WALKING, NOT ELSEWHERE CLASSIFIED Status: Acute Priority: High Current Visit: Yes (6) Medical non-compliance SNOMED Code(s): 524190373 Code(s): Z91.19 - PATIENT'S NONCOMPLIANCE W OTH MEDICAL TREATMENT AND REGIMEN Status: Chronic Priority: High Current Visit: Yes (7) Serum ammonia increased SNOMED Code(s): 6906219 Code(s): E72.20 - DISORDER OF UREA CYCLE METABOLISM, UNSPECIFIED Status: Chronic Priority: High Current Visit: Yes (8) Anemia SNOMED Code(s): 821509057 Code(s): D64.9 - ANEMIA, UNSPECIFIED Status: Chronic Current Visit: Yes Qualifiers: Anemia type: bone marrow failure Bone marrow failure anemia type: unspecified bone marrow failure Qualified Code(s): D61.9 - Aplastic anemia, unspecified (9) Bilateral lower leg cellulitis SNOMED Code(s): 694656470 Code(s): L03.116 - CELLULITIS OF LEFT LOWER LIMB; L03.115 - CELLULITIS OF RIGHT LOWER LIMB Status: Acute Priority: High Current Visit: Yes (10) Cirrhosis of liver SNOMED Code(s): 64132740 Code(s): K74.60 - UNSPECIFIED CIRRHOSIS OF LIVER Status: Chronic Priority: High Current Visit: Yes Qualifiers: Hepatic cirrhosis type: alcoholic cirrhosis Ascites presence: with ascites Qualified Code(s): K70.31 - Alcoholic cirrhosis of liver with ascites (11) Dependent edema SNOMED Code(s): 018978043 Code(s): R60.9 - EDEMA, UNSPECIFIED Status: Acute Priority: High Current Visit: Yes (12) Elevated INR SNOMED Code(s): 445267115 Code(s): R79.1 - ABNORMAL COAGULATION PROFILE Status: Chronic Priority: Medium Current Visit: Yes (13) Hypokalemia SNOMED Code(s): 52802184 Code(s): E87.6 - HYPOKALEMIA Status: Resolved Priority: High Current Visit: Yes (14) Hyponatremia SNOMED Code(s): 06428473 Code(s): E87.1 - HYPO-OSMOLALITY AND HYPONATREMIA Status: Acute Priority: High Current Visit: Yes (15) Thrombocytopenia SNOMED Code(s): 042688266 Code(s): D69.6 - THROMBOCYTOPENIA, UNSPECIFIED Status: Chronic Priority: High Current Visit: Yes (16) Depression SNOMED Code(s): 88827408 Code(s): F32.9 - MAJOR DEPRESSIVE DISORDER, SINGLE EPISODE, UNSPECIFIED Status: Chronic Priority: Medium Current Visit: Yes Qualifiers: Depression Type: other depression Qualified Code(s): F32.89 - Other specified depressive episodes (17) Hepatic encephalopathy SNOMED Code(s): 81988434 Code(s): K72.90 - HEPATIC FAILURE, UNSPECIFIED WITHOUT COMA Status: Chronic Priority: High Current Visit: Yes (18) Lactic acidosis SNOMED Code(s): 38123571 Code(s): E87.2 - ACIDOSIS Status: Acute Priority: High Current Visit: Yes (19) Hypoxia SNOMED Code(s): 440560007 Code(s): R09.02 - HYPOXEMIA Status: Acute Priority: High Current Visit: Yes - Problem List Review Problem List Initiated/Reviewed/Updated: Yes - My Orders Last 24 Hours: My Active Orders 07/14/20 09:00 Furosemide [Lasix] 20 mg IVPUSH DAILY Spironolactone [Aldactone] 50 mg PO DAILY 07/14/20 14:00 Remove Patch 0 ea TRDERM Q24H 07/15/20 06:15 PROCALCITONIN [REF] Routine 07/16/20 05:11 CBC WITH AUTO DIFF [HEME] AM CMP [COMPREHENSIVE METABOLIC PN,CMP] [CHEM] AM CRP [C-REACTIVE PROTEIN] [CHEM] AM MAGNESIUM [CHEM] AM 07/17/20 05:11 CBC WITH AUTO DIFF [HEME] AM CMP [COMPREHENSIVE METABOLIC PN,CMP] [CHEM] AM CRP [C-REACTIVE PROTEIN] [CHEM] AM MAGNESIUM [CHEM] AM - Assessment Assessment:: 07/13/2020 - Day of Admission -64 yo Male who presents to ED on 07/12/20 with confusion and bilateral cellulitis -History of hepatic encephalopathy, End stage liver disease, ETOH abuse, Tobacco use, Esophageal varices with banding, depression, dependant edema -Patient admits to ED provider that he has not been taking his medications because he forgets -Denies any ETOH use for past 2 months (ETOH in ED was 0.00) -Kept in ED overnight due to bed shortage statewide and us being on diversion -Started on Vancomycin in ED -Given lactulose, spironolactone, lasix, IV fluids, Xanax, vancomycin in ED -No WBC in ED, although likely cannot mount immunologic defense due to alcoholic bone marrow suppression -Sepsis criteria: -Bilateral cellulitis, No tachycardia, tachypnea, WBC, or fever -Hypotension likely 2/2 end stage liver failure, Lactate >2 likely 2/2 chronic ETOH abuse, Bilirubin >2 chronically, Platelets <100 chronically, INR elevated 2/2 End stage liver disease -Does not meet criteria -Per ED provider social work states patient apartment was very unkempt -Social work reports patient has been known to leave water running and burners on in apartment. Patient is being evicted. 07/14/2020 * Small improvement in cellulitis * Procalcitonin was negative at 0.05 * White count 6.1 and CRP 2.1 * Lactic acid is chronically elevated due to liver disease at 2.6. Total bilirubin elevated at 7.8 and direct bilirubin 3.8 * Oxygen requirement has increased to 4 L/min * Sodium chronically low at 131 07/15/2020 * Continued improvement in cellulitis * WBC remains WNL at 7.19 with CRP of 2.2 * Oxygen requirement has decreased to 2L * Blood cultures negative thus far * CXR shows new pleural effusions, greater in left and progression of slight infiltrates in right mid and lower lung * Sodium improved to 133 * Potassium 4.3 * Dr. 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 Consider increasing to 100 mg daily -Pharmacological DVT prophylaxis contraindicated -Monitor CBC -Continue folic acid, MV, thiamine supplementation -Low protein diet -Consult automated logistics specialist -Due to end-stage cirrhosis we can expect BPs on the lower side -hyperlactatemia is likely 2/2 to end-stage liver disease and chronic ETOH abus e. Procalcitonin was 0.05 ruling out sepsis. Depression -Dr. Powell consult - recommends monitoring -Discontinue Effexor Tobacco use disorder -Cessation counseling at discharge -Nicotine patches Code status: DNR/DNI PCP: Dr. Mccollum DVT prophylaxis: Pharmacological prophylaxis contraindicated due to significant esophageal varices history, Elevated INR, thrombocytopenia. Mechanical prophylaxis contraindicated due to bilateral LE cellulitis, dependant LE edema. Disposition: Patient admitted due to cellulitis, electrolyte abnormalities, failure to thrive and need for placement. Social: Patient reportedly lives in an apartment. [facility] Ethnology Teacher is following patient. Patient has history of leaving water running and forgetting to turn of burner. Per ED note apartment is very unkempt and there are concerns for patient safety. SW/CM consulted. Prognosis: Overall poor prognosis due to end-stage ETOH cirrhosis. LOS >96 HRS due to need for placement
[2020-07-15] MEDS: Spironolactone 25 MG Tab PO SCH (10:20)
[2020-07-15] MEDS: Folic Acid 1 MG Tab PO SCH (10:20)
[2020-07-15] MEDS: Thiamine 100 MG Tab PO SCH (10:20)
[2020-07-15] MEDS: Magnesium Oxide 400 MG Tab PO SCH ×2 (10:20→20:30)
[2020-07-15] MEDS: Multivitamins,Therapeutic Tab PO SCH (10:20)
[2020-07-15] MEDS: Furosemide 40 MG/4 ML VIAL IVPUSH SCH (10:21)
[2020-07-15] MEDS: Lactulose Soln 10 GM/15 ML 30 ML UD Cup PO SCH ×3 (10:21→20:34)
[2020-07-15] MEDS: oxyCODONE 5 MG Tab PO PRN ×2 (13:07→22:02)
[2020-07-15] MEDS: cefTRIAXone 2 GM in Sodium Chloride 0.9% 100 ML IV SCH (13:10)
[2020-07-15] MEDS: Nicotine 14 MG/24 Hr Patch TRDERM SCH (13:16)
[2020-07-16] MEDS: Lactulose Soln 10 GM/15 ML 30 ML UD Cup PO SCH ×3 (10:16→21:30)
[2020-07-16] MEDS: Spironolactone 100 MG Tab PO SCH (10:17)
[2020-07-16] MEDS: Folic Acid 1 MG Tab PO SCH (10:17)
[2020-07-16] MEDS: Magnesium Oxide 400 MG Tab PO SCH ×2 (10:17→21:30)
[2020-07-16] MEDS: Furosemide 40 MG/4 ML VIAL IVPUSH SCH (10:17)
[2020-07-16] MEDS: Thiamine 100 MG Tab PO SCH (10:17)
[2020-07-16] MEDS: Multivitamins,Therapeutic Tab PO SCH (10:18)
[2020-07-16] MEDS: oxyCODONE 5 MG Tab PO PRN (10:18)
--- NOTE | 2020-07-16 11:29 | PCM.PN ---
- General Info Date of Service: 07/16/20 Admission Dx/Problem (Free Text): Admission Diagnosis/Problem Admission Diagnosis/Problem Cellulitis Subjective Update: No overnight or acute issues. However he was seeing things inside her room specially squirrels. No issues with GI/. No chest pain or shortness of breath. He has mild tremors. Functional Status: Reports: Pain Controlled - Review of Systems General: Denies: Fever, Chills HEENT: Denies: Headaches, Visual Changes Pulmonary: Denies: Shortness of Breath, Cough Cardiovascular: Denies: Chest Pain Gastrointestinal: Denies: Abdominal Pain, Nausea, Vomiting Genitourinary: Denies: Burning Musculoskeletal: Denies: Joint Pain Skin: Denies: Rash Neurological: Reports: Confusion. Denies: Dizziness, Weakness Psychiatric: Reports: Hallucinations. Denies: Depression, Anxiety - Patient Data Vitals - Most Recent: Last Vital Signs Temp 36.8 C 07/16/20 10:23 Pulse 95 07/16/20 10:36 Resp 18 07/16/20 10:23 BP 100/71 07/16/20 10:42 Pulse Ox 93 L 07/16/20 10:36 Weight - Most Recent: 85.003 kg I&O - Last 24 Hours: Intake & Output 07/15/20 07/16/20 07/16/20 22:59 06:59 14:59 Intake Total 1050 200 Balance 1050 200 Lab Results Last 24 Hours: Laboratory Results - last 24 hr 07/15/20 07/16/20 07/16/20 Range/Units 06:15 06:35 06:35 WBC 9.06 (4.23-9.07) K/mm3 RBC 2.68 L (4.63-6.08) M/mm3 Hgb 9.1 L (13.7-17.5) gm/dl Hct 26.8 L (40.1-51.0) % MCV 100.0 H (79.0-92.2) fl MCH 34.0 H (25.7-32.2) pg MCHC 34.0 (32.2-35.5) g/dl RDW Std Deviation 69.0 H (35.1-43.9) fL Plt Count 69 L (163-337) K/mm3 MPV 9.8 (9.4-12.3) fl Neut % (Auto) 67.7 (34.0-67.9) % Lymph % (Auto) 19.4 L (21.8-53.1) % [place] % (Auto) 10.2 (5.3-12.2) % Eos % (Auto) 2.4 (0.8-7.0) Baso % (Auto) 0.3 (0.1-1.2) % Neut # (Auto) 6.13 H (1.78-5.38) K/mm3 Lymph # (Auto) 1.76 (1.32-3.57) K/mm3 [place] # (Auto) 0.92 H (0.30-0.82) K/mm3 Eos # (Auto) 0.22 (0.04-0.54) K/mm3 Baso # (Auto) 0.03 (0.01-0.08) K/mm3 Manual Slide Review Abnormal smear Sodium 134 L (136-145) mEq/L Potassium 3.8 (3.5-5.1) mEq/L Chloride 102 (98-107) mEq/L Carbon Dioxide 24 (21-32) mEq/L Anion Gap 11.8 (5-15) BUN 18 (7-18) mg/dL Creatinine 1.1 (0.7-1.3) mg/dL Est Cr Clr Drug Dosing 65.01 mL/min Estimated GFR (MDRD) > 60 (>60) mL/min BUN/Creatinine Ratio 16.4 (14-18) Glucose 97 (80-115) mg/dL Calcium 8.8 (8.5-10.1) mg/dL Magnesium 2.3 (1.8-2.4) mg/dl Total Bilirubin 7.7 H (0.2-1.0) mg/dL AST 48 H (15-37) U/L ALT 54 (16-63) U/L Alkaline Phosphatase 83 (46-116) U/L C-Reactive Protein 3.5 H* (<1.0) mg/dL Total Protein 6.1 L (6.4-8.2) g/dl Albumin 2.1 L (3.4-5.0) g/dl Globulin 4.0 gm/dL Albumin/Globulin Ratio 0.5 L (1-2) Procalcitonin 0.06 (<0.10) ng/mL Luis Results Last 24 Hours: Microbiology 07/12/20 17:18 Aerobic Blood Culture - Preliminary Blood - Venous - Lab Draw NO GROWTH AFTER 3 DAYS Anaerobic Blood Culture - Final 07/12/20 16:41 Aerobic Blood Culture - Preliminary Blood - Venous NO GROWTH AFTER 3 DAYS Anaerobic Blood Culture - Preliminary NO GROWTH AFTER 3 DAYS Med Orders - Current: Current Medications Acetaminophen (Tylenol) 650 mg PO Q4H PRN PRN Reason: Pain/Fever Last Admin: 07/14/20 21:35 Dose: 650 mg Documented by: Folic Acid (Folic Acid) 1 mg PO DAILY [facility] Last Admin: 07/16/20 10:17 Dose: 1 mg Documented by: Furosemide (Lasix) 40 mg IVPUSH DAILY [facility] Last Admin: 07/16/20 10:17 Dose: 40 mg Documented by: Vancomycin HCl 1 gm/ Sodium (Chloride) 250 mls @ 250 mls/hr IV Q24H [facility] Last Admin: 07/15/20 20:38 Dose: 250 mls/hr Documented by: Ceftriaxone Sodium 2 gm/ (Sodium Chloride) 100 mls @ 200 mls/hr IV Q24H [facility] Last Admin: 07/15/20 13:10 Dose: 200 mls/hr Documented by: Lactulose (Cephulac) 30 gm PO TID [facility] Last Admin: 07/16/20 10:16 Dose: 30 gm Documented by: Magnesium Oxide (Magnesium Oxide) 400 mg PO BID [facility] Last Admin: 07/16/20 10:17 Dose: 400 mg Documented by: Melatonin (Melatonin) 3 mg PO BEDTIME PRN PRN Reason: insomnia Miscellaneous Information (Remove Patch) 0 ea TRDERM Q24H [facility] Last Admin: 07/15/20 13:18 Dose: 1 ea Documented by: Multivitamins (Thera) 1 each PO DAILY [facility] Last Admin: 07/16/20 10:18 Dose: 1 each Documented by: Nicotine (Habitrol) 14 mg TRDERM Q24H [facility] Last Admin: 07/15/20 13:16 Dose: 14 mg Documented by: Ondansetron HCl (Zofran) 4 mg IV Q6H PRN PRN Reason: Nausea/Vomiting Oxycodone HCl (Oxycodone) 5 mg PO Q6H PRN PRN Reason: Pain (moderate 4-6) Oxycodone HCl (Oxycodone) 10 mg PO Q6H PRN PRN Reason: Pain (severe 7-10) Last Admin: 07/16/20 10:18 Dose: 10 mg Documented by: Spironolactone (Aldactone) 100 mg PO DAILY [facility] Last Admin: 07/16/20 10:17 Dose: 100 mg Documented by: Thiamine HCl (Vitamin B-1) 100 mg PO DAILY [facility] Last Admin: 07/16/20 10:17 Dose: 100 mg Documented by: Vancomycin HCl (Pharmacy To Dose - Vancomycin) 1 dose .XX ASDIRECTED [facility] Discontinued Medications Alprazolam (Xanax) 1 mg PO BEDTIME ONE Stop: 07/12/20 21:01 Last Admin: 07/12/20 21:24 Dose: 1 mg Documented by: Alprazolam (Xanax) 1 mg PO BEDTIME MELISSA Furosemide (Lasix) 40 mg IVPUSH NOW ONE Stop: 07/12/20 19:17 Last Admin: 07/12/20 19:38 Dose: 40 mg Documented by: Furosemide (Lasix) 40 mg IVPUSH NOW ONE Stop: 07/13/20 09:15 Last Admin: 07/13/20 09:42 Dose: 40 mg Documented by: Furosemide (Lasix) 40 mg IVPUSH DAILY [facility] Furosemide (Lasix) 20 mg IVPUSH DAILY [facility] Last Admin: 07/14/20 10:10 Dose: 20 mg Documented by: Sodium Chloride (Normal Saline) 1,000 mls @ 125 mls/hr IV ASDIRECTED [facility] Last Admin: 07/12/20 17:03 Dose: 125 mls/hr Documented by: Vancomycin HCl 1.5 gm/ Sodium (Chloride) 500 mls @ 250 mls/hr IV ONETIME ONE Stop: 07/12/20 19:21 Last Admin: 07/12/20 20:07 Dose: 250 mls/hr Documented by: Vancomycin HCl 1 gm/ Sodium (Chloride) 250 mls @ 250 mls/hr IV Q12H [facility] Last Admin: 07/14/20 23:00 Dose: 250 mls/hr Documented by: Ceftriaxone Sodium 2 gm/ (Sodium Chloride) 100 mls @ 200 mls/hr IV Q24H [facility] Last Admin: 07/14/20 14:38 Dose: 200 mls/hr Documented by: Sodium Chloride (Normal Saline) 1,000 mls @ 100 mls/hr IV ASDIRECTED [facility] Stop: 07/15/20 00:59 Last Admin: 07/14/20 00:04 Dose: 100 mls/hr Documented by: Lactulose (Cephulac) 20 gm PO TID [facility] Last Admin: 07/13/20 15:46 Dose: Not Given Documented by: Lactulose (Cephulac) 20 gm PO TID [facility] Last Admin: 07/15/20 10:21 Dose: 20 gm Documented by: Oxycodone HCl (Oxycodone) 5 - 10 mg PO Q6H PRN PRN Reason: Pain Potassium Chloride (Klor-Con M20) 40 meq PO TID [facility] Stop: 07/14/20 09:01 Last Admin: 07/14/20 10:09 Dose: 40 meq Documented by: Spironolactone (Aldactone) 25 mg PO ONETIME ONE Stop: 07/12/20 19:18 Last Admin: 07/12/20 19:38 Dose: 25 mg Documented by: Spironolactone (Aldactone) 25 mg PO ONETIME ONE Stop: 07/13/20 09:16 Last Admin: 07/13/20 09:50 Dose: 25 mg Documented by: Spironolactone (Aldactone) 25 mg PO DAILY [facility] Spironolactone (Aldactone) 50 mg PO DAILY [facility] Last Admin: 07/15/20 10:20 Dose: 50 mg Documented by: Venlafaxine HCl (Effexor) 37.5 mg PO BID [facility] - Exam Quality Assessment: Supplemental Oxygen General: Alert, Cooperative HEENT: Pupils Equal, Pupils Reactive, EOMI, Mucous Membr. Moist/[place]: Supple Lungs: Normal Respiratory Effort, Decreased Breath Sounds Cardiovascular: Regular Rate, Regular Rhythm GI/Abdominal Exam: Normal Bowel Sounds, Soft, Non-Tender, No Organomegaly, No Distention, No Abnormal Bruit (Male) Exam: Deferred Back Exam: Normal Inspection, Decreased Range of Motion Extremities: Normal Inspection, Normal Range of Motion, Non-Tender, Normal Capillary Refill, Other (right lower leg red with edema). No: Leg Pain Peripheral Pulses: 1+: Dorsalis Pedis (R), 2+: Dorsalis Pedis (L) Skin: Warm, Dry, Intact, Other (redness) Neurological: No New Focal Deficit, Other (mild tremors). No: Normal Gait Psy/Mental Status: Alert, Normal Affect, Normal Mood Sepsis Event Note - Evaluation Sepsis Screening Result: No Definite Risk - Focused Exam Vital Signs: Vital Signs Temp Pulse Resp BP BP Pulse Ox 07/16/20 10:42 100/71 07/16/20 10:36 95 93 L 07/16/20 10:25 95 07/16/20 10:23 36.8 C 94 18 07/16/20 04:18 37.3 C 92 20 97/57 L 94 L 07/15/20 23:50 37.1 C 81 20 102/67 96 - Problem List Review Problem List Initiated/Reviewed/Updated: Yes - Assessment Assessment:: Bilateral cellulitis/Stasis Dermatitis Dependant edema Hypoxemia -Monitor WBC and CRP daily -Continued vancomycin with pharmacy to dose -Continue Rocephin Q24hr -Discontinue -Monitor leg inflammation -Increase lasix to 40mg daily -Obtain Echo on Saturday (Next available day for echo's) Failure to thrive Hypokalemia Hyponatremia Lactic Acidosis Medical non-compliance Hx/o hypomagnesemia Hypoalbuminemia Relative Hypotension -Consult CM/SW -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 Consider increasing to 100 mg daily -Pharmacological DVT prophylaxis contraindicated -Monitor CBC -Continue folic acid, MV, thiamine supplementation -Low protein diet -Consult wash barrel leader -Due to end-stage cirrhosis we can expect BPs on the lower side -hyperlactatemia is likely 2/2 to end-stage liver disease and chronic ETOH abuse. Procalcitonin was 0.05 ruling out sepsis. -Routine AM labs with Ammonia Depression -Dr. Powell consult - recommends monitoring -Discontinue Effexor Tobacco use disorder -Cessation counseling at discharge -Nicotine patches Code status: DNR/DNI PCP: Dr. Mccollum DVT prophylaxis: Pharmacological prophylaxis contraindicated due to significant esophageal varices history, Elevated INR, thrombocytopenia. Mechanical prophylaxis contraindicated due to bilateral LE cellulitis, dependant LE edema. Disposition: Patient admitted due to cellulitis, electrolyte abnormalities, failure to thrive and need for placement. Social: Patient reportedly lives in an apartment. [facility] [employer] is following patient. Patient has history of leaving water running and forgetting to turn of burner. Per ED note apartment is very unkempt and there are concerns for patient safety. SW/CM consulted. Prognosis: Overall poor prognosis due to end-stage ETOH cirrhosis. LOS >96 HRS due to need for placement - Plan Plan:: 07/13/2020 - Day of Admission -64 yo Male who presents to ED on 07/12/20 with confusion and bilateral cellulitis -History of hepatic encephalopathy, End stage liver disease, ETOH abuse, Tobacco use, Esophageal varices with banding, depression, dependant edema -Patient admits to ED provider that he has not been taking his medications because he forgets -Denies any ETOH use for past 2 months (ETOH in ED was 0.00) -Kept in ED overnight due to bed shortage statewide and us being on diversion -Started on Vancomycin in ED foe cellulitis -Given lactulose, spironolactone, lasix, IV fluids, Xanax, vancomycin in ED -No WBC in ED, although likely cannot mount immunologic defense due to alcoholic bone marrow suppression -Sepsis criteria: -Bilateral cellulitis, No tachycardia, tachypnea, WBC, or fever -Hypotension likely 2/2 end stage liver failure, Lactate >2 likely 2/2 chronic ETOH abuse, Bilirubin >2 chronically, Platelets <100 chronically, INR elevated 2/2 End stage liver disease -Does not meet criteria -Per ED provider social work states patient apartment was very unkempt -Social work reports patient has been known to leave water running and burners on in apartment. Patient is being evicted. 07/14/2020 * Small improvement in cellulitis * Procalcitonin was negative at 0.05 * White count 6.1 and CRP 2.1 * Lactic acid is chronically elevated due to liver disease at 2.6. Total bili lindsey elevated at 7.8 and direct bilirubin 3.8 * Oxygen requirement has increased to 4 L/min * Sodium chronically low at 131 07/15/2020 * Continued improvement in cellulitis * WBC remains WNL at 7.19 with CRP of 2.2 * Oxygen requirement has decreased to 2L * Blood cultures negative thus far * Sodium improved to 133 * Potassium 4.3 * Dr. Powell saw patient and recommends withholding patients effexor and monitoring * Patient remains quite confused 07/16/20 * Continue current treatment * Routine AM labs with Ammonia * Midodrine 5 mg po TIDAC * Remains confused with hallucinations (seeing squirrels inside his room) * May consider anti-psychotic medications if needed * Need Tele-psych consult LOS >96 HRS due to need for placement
[2020-07-16] MEDS: Nicotine 14 MG/24 Hr Patch TRDERM SCH (15:15)
[2020-07-16] MEDS: cefTRIAXone 2 GM in Sodium Chloride 0.9% 100 ML IV SCH (15:16)
[2020-07-16] MEDS: Midodrine 5 MG Tab PO SCH (16:41)
[2020-07-17] MEDS: oxyCODONE 5 MG Tab PO PRN (06:10)
[2020-07-17] MEDS: Midodrine 5 MG Tab PO SCH ×3 (06:12→16:45)
--- NOTE | 2020-07-17 07:56 | PCM.PN ---
- General Info Date of Service: 07/17/20 Admission Dx/Problem (Free Text): Admission Diagnosis/Problem Admission Diagnosis/Problem Cellulitis Subjective Update: No overnight or acute issues. He is still seeing squirrels in his room. Functional Status: Reports: Pain Controlled - Review of Systems General: Denies: Fever, Chills Pulmonary: Denies: Shortness of Breath Cardiovascular: Denies: Chest Pain Gastrointestinal: Denies: Abdominal Pain, Nausea, Vomiting Genitourinary: Denies: Burning Musculoskeletal: Denies: Joint Pain Skin: Denies: Rash Neurological: Denies: Headache, Weakness Psychiatric: Reports: Hallucinations. Denies: Depression, Anxiety, Agitation - Patient Data Vitals - Most Recent: Last Vital Signs Temp 36.8 C 07/16/20 21:31 Pulse 83 07/17/20 06:19 Resp 18 07/17/20 00:08 BP 107/63 07/17/20 00:08 Pulse Ox 92 L 07/17/20 06:19 Weight - Most Recent: 85.275 kg I&O - Last 24 Hours: Intake & Output 07/16/20 07/17/20 07/17/20 22:59 06:59 14:59 Intake Total 700 650 Balance 700 650 Lab Results Last 24 Hours: Laboratory Results - last 24 hr 07/16/20 07/16/20 07/17/20 Range/Units 06:35 06:35 05:50 WBC 11.68 H (4.23-9.07) K/mm3 RBC 2.79 L (4.63-6.08) M/mm3 Hgb 9.5 L (13.7-17.5) gm/dl Hct 27.9 L (40.1-51.0) % MCV 100.0 H (79.0-92.2) fl MCH 34.1 H (25.7-32.2) pg MCHC 34.1 (32.2-35.5) g/dl RDW Std Deviation 70.2 H (35.1-43.9) fL Plt Count 74 L (163-337) K/mm3 MPV 10.0 (9.4-12.3) fl Neut % (Auto) 76.1 H (34.0-67.9) % Lymph % (Auto) 13.8 L (21.8-53.1) % [place] % (Auto) 8.3 (5.3-12.2) % Eos % (Auto) 1.5 (0.8-7.0) Baso % (Auto) 0.3 (0.1-1.2) % Neut # (Auto) 8.89 H (1.78-5.38) K/mm3 Lymph # (Auto) 1.61 (1.32-3.57) K/mm3 [place] # (Auto) 0.97 H (0.30-0.82) K/mm3 Eos # (Auto) 0.17 (0.04-0.54) K/mm3 Baso # (Auto) 0.04 (0.01-0.08) K/mm3 Manual Slide Review Abnormal smear Sodium 134 L (136-145) mEq/L Potassium 3.8 (3.5-5.1) mEq/L Chloride 102 (98-107) mEq/L Carbon Dioxide 24 (21-32) mEq/L Anion Gap 11.8 (5-15) BUN 18 (7-18) mg/dL Creatinine 1.1 (0.7-1.3) mg/dL Est Cr Clr Drug Dosing 65.01 mL/min Estimated GFR (MDRD) > 60 (>60) mL/min BUN/Creatinine Ratio 16.4 (14-18) Glucose 97 (80-115) mg/dL Calcium 8.8 (8.5-10.1) mg/dL Magnesium 2.3 (1.8-2.4) mg/dl Total Bilirubin 7.7 H (0.2-1.0) mg/dL AST 48 H (15-37) U/L ALT 54 (16-63) U/L Alkaline Phosphatase 83 (46-116) U/L Ammonia (11-32) umol/L C-Reactive Protein 3.5 H* (<1.0) mg/dL Total Protein 6.1 L (6.4-8.2) g/dl Albumin 2.1 L (3.4-5.0) g/dl Globulin 4.0 gm/dL Albumin/Globulin Ratio 0.5 L (1-2) 07/17/20 07/17/20 Range/Units 05:50 05:50 WBC (4.23-9.07) K/mm3 RBC (4.63-6.08) M/mm3 Hgb (13.7-17.5) gm/dl Hct (40.1-51.0) % MCV (79.0-92.2) fl MCH (25.7-32.2) pg MCHC (32.2-35.5) g/dl RDW Std Deviation (35.1-43.9) fL Plt Count (163-337) K/mm3 MPV (9.4-12.3) fl Neut % (Auto) (34.0-67.9) % Lymph % (Auto) (21.8-53.1) % [place] % (Auto) (5.3-12.2) % Eos % (Auto) (0.8-7.0) Baso % (Auto) (0.1-1.2) % Neut # (Auto) (1.78-5.38) K/mm3 Lymph # (Auto) (1.32-3.57) K/mm3 [place] # (Auto) (0.30-0.82) K/mm3 Eos # (Auto) (0.04-0.54) K/mm3 Baso # (Auto) (0.01-0.08) K/mm3 Manual Slide Review Sodium 135 L (136-145) mEq/L Potassium 3.6 (3.5-5.1) mEq/L Chloride 101 (98-107) mEq/L Carbon Dioxide 22 (21-32) mEq/L Anion Gap 15.6 H (5-15) BUN 21 H (7-18) mg/dL Creatinine 1.2 (0.7-1.3) mg/dL Est Cr Clr Drug Dosing 59.59 mL/min Estimated GFR (MDRD) > 60 (>60) mL/min BUN/Creatinine Ratio 17.5 (14-18) Glucose 105 (80-115) mg/dL Calcium 8.7 (8.5-10.1) mg/dL Magnesium 2.3 (1.8-2.4) mg/dl Total Bilirubin 7.4 H (0.2-1.0) mg/dL AST 57 H (15-37) U/L ALT 53 (16-63) U/L Alkaline Phosphatase 84 (46-116) U/L Ammonia 35 H (11-32) umol/L C-Reactive Protein 5.7 H* (<1.0) mg/dL Total Protein 6.4 (6.4-8.2) g/dl Albumin 2.1 L (3.4-5.0) g/dl Globulin 4.3 gm/dL Albumin/Globulin Ratio 0.5 L (1-2) Luis Results Last 24 Hours: Microbiology 07/12/20 17:18 Aerobic Blood Culture - Preliminary Blood - Venous - Lab Draw NO GROWTH AFTER 4 DAYS Anaerobic Blood Culture - Final 07/12/20 16:41 Aerobic Blood Culture - Preliminary Blood - Venous NO GROWTH AFTER 4 DAYS Anaerobic Blood Culture - Preliminary NO GROWTH AFTER 4 DAYS Med Orders - Current: Current Medications Acetaminophen (Tylenol) 650 mg PO Q4H PRN PRN Reason: Pain/Fever Last Admin: 07/14/20 21:35 Dose: 650 mg Documented by: Folic Acid (Folic Acid) 1 mg PO DAILY [facility] Last Admin: 07/16/20 10:17 Dose: 1 mg Documented by: Furosemide (Lasix) 40 mg IVPUSH DAILY [facility] [place] Last Admin: 07/16/20 10:17 Dose: 40 mg Documented by: Vancomycin HCl 1 gm/ Sodium (Chloride) 250 mls @ 250 mls/hr IV Q24H [facility] [place] Last Admin: 07/16/20 21:31 Dose: 250 mls/hr Documented by: Ceftriaxone Sodium 2 gm/ (Sodium Chloride) 100 mls @ 200 mls/hr IV Q24H [facility] [place] Last Admin: 07/16/20 15:16 Dose: 200 mls/hr Documented by: Lactulose (Cephulac) 30 gm PO TID [facility] Last Admin: 07/16/20 21:30 Dose: 30 gm Documented by: Magnesium Oxide (Magnesium Oxide) 400 mg PO BID [facility] Last Admin: 07/16/20 21:30 Dose: 400 mg Documented by: Melatonin (Melatonin) 3 mg PO BEDTIME PRN PRN Reason: insomnia Midodrine (Midodrine) 5 mg PO TIDAC [facility] Last Admin: 07/17/20 06:12 Dose: 5 mg Documented by: Miscellaneous Information (Remove Patch) 0 ea TRDERM Q24H [facility] Last Admin: 07/16/20 15:16 Dose: 1 ea Documented by: Multivitamins (Thera) 1 each PO DAILY [facility] Last Admin: 07/16/20 10:18 Dose: 1 each Documented by: Nicotine (Habitrol) 14 mg TRDERM Q24H [facility] Last Admin: 07/16/20 15:15 Dose: 14 mg Documented by: Ondansetron HCl (Zofran) 4 mg IV Q6H PRN PRN Reason: Nausea/Vomiting Oxycodone HCl (Oxycodone) 5 mg PO Q6H PRN PRN Reason: Pain (moderate 4-6) Oxycodone HCl (Oxycodone) 10 mg PO Q6H PRN PRN Reason: Pain (severe 7-10) Last Admin: 07/17/20 06:10 Dose: 10 mg Documented by: Spironolactone (Aldactone) 100 mg PO DAILY [facility] [place] Last Admin: 07/16/20 10:17 Dose: 100 mg Documented by: Thiamine HCl (Vitamin B-1) 100 mg PO DAILY [facility] [place] Last Admin: 07/16/20 10:17 Dose: 100 mg Documented by: Vancomycin HCl (Pharmacy To Dose - Vancomycin) 1 dose .XX ASDIRECTED [facility] Discontinued Medications Alprazolam (Xanax) 1 mg PO BEDTIME ONE Stop: 07/12/20 21:01 Last Admin: 07/12/20 21:24 Dose: 1 mg Documented by: Alprazolam (Xanax) 1 mg PO BEDTIME MELISSA Folic Acid (Folic Acid) 1 mg PO DAILY [facility] [place] Furosemide (Lasix) 40 mg IVPUSH NOW ONE Stop: 07/12/20 19:17 Last Admin: 07/12/20 19:38 Dose: 40 mg Documented by: Furosemide (Lasix) 40 mg IVPUSH NOW ONE Stop: 07/13/20 09:15 Last Admin: 07/13/20 09:42 Dose: 40 mg Documented by: Furosemide (Lasix) 40 mg IVPUSH DAILY [facility] [place] Furosemide (Lasix) 20 mg IVPUSH DAILY [facility] [place] Last Admin: 07/14/20 10:10 Dose: 20 mg Documented by: Sodium Chloride (Normal Saline) 1,000 mls @ 125 mls/hr IV ASDIRECTED [facility] [place] Last Admin: 07/12/20 17:03 Dose: 125 mls/hr Documented by: Vancomycin HCl 1.5 gm/ Sodium (Chloride) 500 mls @ 250 mls/hr IV ONETIME ONE Stop: 07/12/20 19:21 Last Admin: 07/12/20 20:07 Dose: 250 mls/hr Documented by: Vancomycin HCl 1 gm/ Sodium (Chloride) 250 mls @ 250 mls/hr IV Q12H [facility] [place] Last Admin: 07/14/20 23:00 Dose: 250 mls/hr Documented by: Ceftriaxone Sodium 2 gm/ (Sodium Chloride) 100 mls @ 200 mls/hr IV Q24H [facility] [place] Last Admin: 07/14/20 14:38 Dose: 200 mls/hr Documented by: Sodium Chloride (Normal Saline) 1,000 mls @ 100 mls/hr IV ASDIRECTED [facility] Stop: 07/15/20 00:59 Last Admin: 07/14/20 00:04 Dose: 100 mls/hr Documented by: Lactulose (Cephulac) 20 gm PO TID [facility] Last Admin: 07/13/20 15:46 Dose: Not Given Documented by: Lactulose (Cephulac) 20 gm PO TID [facility] Last Admin: 07/15/20 10:21 Dose: 20 gm Documented by: Non-Formulary Medication (Magnesium Oxide [Magnesium Oxide]) 400 mg PO DAILY [facility] Oxycodone HCl (Oxycodone) 5 - 10 mg PO Q6H PRN PRN Reason: Pain Potassium Chloride (Klor-Con M20) 40 meq PO TID [facility] Stop: 07/14/20 09:01 Last Admin: 07/14/20 10:09 Dose: 40 meq Documented by: Spironolactone (Aldactone) 25 mg PO ONETIME ONE Stop: 07/12/20 19:18 Last Admin: 07/12/20 19:38 Dose: 25 mg Documented by: Spironolactone (Aldactone) 25 mg PO ONETIME ONE Stop: 07/13/20 09:16 Last Admin: 07/13/20 09:50 Dose: 25 mg Documented by: Spironolactone (Aldactone) 25 mg PO DAILY [facility] Spironolactone (Aldactone) 50 mg PO DAILY [facility] Last Admin: 07/15/20 10:20 Dose: 50 mg Documented by: Thiamine HCl (Vitamin B-1) 100 mg PO DAILY [facility] Venlafaxine HCl (Effexor) 37.5 mg PO BID [facility] - Exam General: Alert, Cooperative, No Acute Distress HEENT: Pupils Equal, Pupils Reactive, EOMI, Mucous Membr. Moist/[place] Neck: Supple Lungs: Normal Respiratory Effort, Decreased Breath Sounds Cardiovascular: Regular Rate, Regular Rhythm GI/Abdominal Exam: Normal Bowel Sounds, Soft, Non-Tender, No Organomegaly, No Distention, No Abnormal Bruit (Male) Exam: Deferred Back Exam: Normal Inspection, Decreased Range of Motion Extremities: Normal Inspection, Normal Range of Motion, Non-Tender, No Pedal Edema, Normal Capillary Refill Peripheral Pulses: 1+: Dorsalis Pedis (L), Dorsalis Pedis (R) Skin: Warm, Dry, Intact, Other Wound/Incisions: No Drainage, Erythema (on right ramos ), Other (pocket of hematoma or possibly abscess on right ramos) Neurological: No New Focal Deficit Psy/Mental Status: Alert, Normal Affect, Normal Mood Sepsis Event Note - Evaluation Sepsis Screening Result: No Definite Risk - Focused Exam Vital Signs: Vital Signs Temp Pulse Resp BP Pulse Ox 07/17/20 06:19 83 92 L 07/17/20 00:10 94 92 L 07/17/20 00:08 92 18 107/63 88 L 07/16/20 21:31 36.8 C 91 18 113/52 L 92 L - Problem List Review Problem List Initiated/Reviewed/Updated: Yes - My Orders Last 24 Hours: My Active Orders 07/16/20 17:00 Midodrine 5 mg PO TIDAC 07/17/20 Breakfast Mechanical Soft Diet [DIET] - Assessment Assessment:: Bilateral cellulitis/Stasis Dermatitis, improving Dependant edema Small hematoma/abscess on right ramos Leukocytosis Hypoxemia -Monitor WBC and CRP daily -Continued vancomycin with pharmacy to dose -Continue Rocephin Q24hr -Monitor leg inflammation -On IV Lasix to 40 mg daily -On 3-4 L of NC -Wound culture for on right ramos -Obtain Echo on Saturday (Next available day for echo's) Failure to thrive Hypokalemia, resolved Hyponatremia, continues to improve Lactic Acidosis, likely resolved Medical non-compliance Hx/o hypomagnesemia Hypoalbuminemia, unchanged Relative Hypotension -Consult CM/SW -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 cognitive evaluation pending -Will likely need placement at discharge -Can Bander Operator consult tomorrow -Monitor electrolytes/magnesium -Supplement magnesium -On Midodrine 5 mg po TID History of ETOH abuse Hepatic encephalopathy End-stage ETOH related cirrhosis Elevated INR Elevated Bilirubin Hx/o esophageal varices Thrombocytopenia Macrocytic Normochromic Anemia Elevated serum ammonia Hyperlactatemia Hallucinations -Continue Lactulose 30mg TID and Lasix 40 mg po daily -Continue spironolactone 50mg daily -Pharmacological DVT prophylaxis contraindicated -Monitor CBC -Continue folic acid, MV, thiamine supplementation -Low protein diet -Consult [employer]soft bi consultant -Due to end-stage cirrhosis we can expect BPs on the lower side -hyperlactatemia is likely 2/2 to end-stage liver disease and chronic ETOH abuse. Procalcitonin was 0.05 ruling out sepsis. -Routine AM labs with Ammonia Depression -Dr. Powell consult - recommends monitoring -Discontinue Effexor Tobacco use disorder -Cessation counseling at discharge -Nicotine patches Code status: DNR/DNI PCP: Dr. Mccollum DVT prophylaxis: Pharmacological prophylaxis contraindicated due to significant esophageal varices history, Elevated INR, thrombocytopenia. Mechanical prophylaxis contraindicated due to bilateral LE cellulitis, dependant LE edema. Disposition: Patient admitted due to cellulitis, electrolyte abnormalities, failure to thrive and need for placement. Social: Patient reportedly lives in an apartment. [facility] is following patient. Patient has history of leaving water running and forgetting to turn of burner. Per ED note apartment is very unkempt and there are concerns for patient safety. SW/CM consulted. Prognosis: Overall poor prognosis due to end-stage ETOH cirrhosis. LOS >96 HRS due to need for placement - Plan Plan:: 07/13/2020 - Day of Admission -64 yo Male who presents to ED on 07/12/20 with confusion and bilateral cellulitis -History of hepatic encephalopathy, End stage liver disease, ETOH abuse, Tobacco use, Esophageal varices with banding, depression, dependant edema -Patient admits to ED provider that he has not been taking his medications because he forgets -Denies any ETOH use for past 2 months (ETOH in ED was 0.00) -Kept in ED overnight due to bed shortage statewide and us being on diversion -Started on Vancomycin in ED foe cellulitis -Given lactulose, spironolactone, lasix, IV fluids, Xanax, vancomycin in ED -No WBC in ED, although likely cannot mount immunologic defense due to alcoholic bone marrow suppression -Sepsis criteria: -Bilateral cellulitis, No tachycardia, tachypnea, WBC, or fever -Hypotension likely 2/2 end stage liver failure, Lactate >2 likely 2/2 chronic ETOH abuse, Bilirubin >2 chronically, Platelets <100 chronically, INR elevated 2/2 End stage liver disease -Does not meet criteria -Per ED provider social work states patient apartment was very unkempt -Social work reports patient has been known to leave water running and burners on in apartment. Patient is being evicted. 07/14/2020 * Small improvement in cellulitis * Procalcitonin was negative at 0.05 * White count 6.1 and CRP 2.1 * Lactic acid is chronically elevated due to liver disease at 2.6. Total bilirubin elevated at 7.8 and direct bilirubin 3.8 * Oxygen requirement has increased to 4 L/min * Sodium chronically low at 131 07/15/2020 * Continued improvement in cellulitis * WBC remains WNL at 7.19 with CRP of 2.2 * Oxygen requirement has decreased to 2L * Blood cultures negative thus far * Sodium improved to 133 * Potassium 4.3 * Dr. Powell saw patient and recommends withholding patients effexor and monitoring * Patient remains quite confused 07/16/20 * Continue current treatment * Routine AM labs with Ammonia * Midodrine 5 mg po TIDAC * Remains confused with hallucinations (seeing squirrels inside his room) * May consider anti-psychotic medications if needed * Need Tele-psych consult 07/17/20 * Continue current treatment: Rocephin and Vancomycin * Routine AM labs * Offered I&D but patient refused * Wound culture on right ramos * Remains confused with hallucinations (seeing squirrels inside his room) * May consider anti-psychotic medications if needed * Need Tele-psych follow up LOS > 96 HRS due to need for placement
[2020-07-17] MEDS ORDERED: Thiamine 100 MG Tab PO SCH (09:00)
[2020-07-17] MEDS ORDERED: Folic Acid 1 MG Tab PO SCH (09:00)
[2020-07-17] MEDS ORDERED: Non-Formulary Medication 1 Each (Magnesium Oxide [Magnesium Oxide] 400 MG) PO SCH (09:00)
[2020-07-17] MEDS: Spironolactone 100 MG Tab PO SCH (09:25)
[2020-07-17] MEDS: Thiamine 100 MG Tab PO SCH (09:25)
[2020-07-17] MEDS: Magnesium Oxide 400 MG Tab PO SCH ×2 (09:25→21:37)
[2020-07-17] MEDS: Multivitamins,Therapeutic Tab PO SCH (09:25)
[2020-07-17] MEDS: Folic Acid 1 MG Tab PO SCH (09:25)
[2020-07-17] MEDS: Furosemide 40 MG/4 ML VIAL IVPUSH SCH (09:26)
[2020-07-17] MEDS: Lactulose Soln 10 GM/15 ML 30 ML UD Cup PO SCH ×3 (09:26→21:32)
--- NOTE | 2020-07-17 13:36 | CONS ---
CONSULTING PHYSICIAN: Douglas Powell MD DATE OF CONSULTATION: 07/15/2020 Site where the services are provided are [facility], [place], [place]. Site where the services are provided from our offices is in [facility]. Length of service for this 60-minute inpatient telemedicine clinical event is 60 minutes. IDENTIFICATION: The patient is a 64-year-old male who is admitted to the inpatient Med/Surg Unit at [facility] in [place], [place]. He is seen for psychiatric consultation per the request of staff attending, Dr. Gomez and his inpatient treatment team. CHIEF COMPLAINT: "I do not know." HISTORY OF PRESENT ILLNESS: The patient is a 64-year-old male who was admitted through the emergency room on 07/13/2020 after presenting with a history of severe alcoholism, inability to care for himself and possible depression and feelings of hopelessness per staff report. On interview, the patient is alert and oriented x2 to person and place, but is not certain actually what city he is in. He knows he is in the hospital, but he is also not certain of the date, thinking it is sometime in the summer and he is really not able to answer many questions, but does state that he feels better since he has been in the hospital. Staff are reporting that the patient was taking Effexor for his depression, but he is having severe hepatic impairment secondary to alcohol cirrhosis and so the question from staff is whether or not the patient should be continued on the Effexor medication at this point in time. He has been started on lactulose since admission and staff is reporting that he is doing somewhat better and is actually less confused than on admission. For his part, the patient has no questions or complaints and on interview does agree with the question when asked if he is feeling better since admission. MEDICATIONS: At the time of admission: 1. Effexor 37.5 mg b.i.d. 2. Melatonin 3 mg b.i.d. And since admission: 1. Lactulose. 2. Multivitamin. 3. Lasix. 4. Spironolactone. ALLERGIES: No known drug allergies. PAST MEDICAL HISTORY: 1. Esophageal varices. 2. Alcoholic liver cirrhosis with possible end-stage liver cirrhosis. 3. Suspected hepatic encephalopathy. REVIEW OF SYSTEMS: Aside from GI and neuro, all other major organ systems are negative at this point in time for acute difficulties or complications. FAMILY PSYCHIATRIC AND CD HISTORY: None reported. PAST PSYCHIATRIC AND CD HISTORY: The patient does have a history of depression per staff report, but no other psychiatric history is able to be obtained on interview due to the patient's confusion. SOCIAL HISTORY: The patient was living at home by himself per staff report, but no other information is available at this point in time as patient is not able to answer questions regarding the circumstances surrounding his presentation. MENTAL STATUS EXAM: The patient is a 64-year-old pale-looking white male, in no apparent distress. Speech is of increased latency of response, shortened duration of utterance. Psychomotor activity is slow, but within normal limits. There is no abnormal motor movements or tics observed. Gait and station are not observed as patient is lying in bed. The patient is cognitively oriented x2 to person and place, but not to date. Mood is "tired." Affect is cooperative overall for the purposes of the inpatient consult. There is no behavioral or stated evidence of acute suicidal or homicidal ideation or acute psychotic, delusional, or paranoid symptoms. Thought processes are disorganized. There is no acute manic symptoms or loose associations evident. Judgment and insight appear impaired secondary to the patient's cognitive impairment. Motivation for help appears fair to good. VITAL SIGNS: 84/47, 72, 20, 97.3 degrees. IMPRESSION: Kirby I: 1. Alcohol dependence, F10.20. 2. Depression, not otherwise specified, F32.9. 3. Rule out major depressive disorder, and it appears he may have a past history of clinical depression per staff report. Kirby II: None. Kirby III: 1. History of esophageal varices. 2. History of suspected end-stage liver cirrhosis secondary to severe alcoholism. 3. Suspected hepatic encephalopathy. Kirby IV: Severe AXIS V: 50 to 55. PLAN: 1. Sobriety. 2. Recommend holding patient's psychiatric medications such as the Effexor to see if this will help with improving the liver function in the short term. 3. If the patient does have breakthrough symptoms of depression as his sensorium clears, we can have antidepressant and psychiatric medications restarted moving forward. 4. Other medications as dosed or prescribed by patient's primary inpatient clinical treatment team. 5. We will continue follow up with the patient on an as-needed basis while he remains on the inpatient Med[facility]Surg Unit at [facility]. 6. We will follow up with the patient sooner if any complications in the interim. 7. Recommend if the patient is unable to care for himself moving forward that the patient be assessed for likely placement in a structured living environment that will provide him care as well as help provide a sober living environment. 8. Crisis plan is in place. RICH /[id number]
[2020-07-17] MEDS: Nicotine 14 MG/24 Hr Patch TRDERM SCH (14:43)
[2020-07-17] MEDS: cefTRIAXone 2 GM in Sodium Chloride 0.9% 100 ML IV SCH (14:43)
[2020-07-17] MEDS ORDERED: Vancomycin 1 GM AdvVial ONE (21:33)
[2020-07-18] MEDS: Midodrine 5 MG Tab PO SCH ×3 (06:05→16:09)
[2020-07-18] MEDS: oxyCODONE 5 MG Tab PO PRN (06:18)
--- NOTE | 2020-07-18 07:40 | PCM.PN ---
- General Info Date of Service: 07/18/20 Admission Dx/Problem (Free Text): Admission Diagnosis/Problem Admission Diagnosis/Problem Cellulitis Subjective Update: In to see Mandeep. He has had a dramatic increase on oxygenation requirements. CXR is concerning for viral pneumonia. D-dimer is elevated at >7. CTA negative for PE but concerning for viral/atypical pneumonia. Added azithromycin to antibiotic regimine. Will order covid-19 labs, repeat covid-19 screen, and isolation. Will begin treatment with methadone and remdesivir. We will not do convalescent plasma at this time as there is already concerns about the patient's fluid status and perfusion to his kidneys. Will order high flow oxygen. Will also order RVP, mycoplasma, and strep pneumo. Functional Status: Reports: Pain Controlled, Tolerating Diet, Ambulating, Urinating, Incentive Spirometry. Denies: New Symptoms - Review of Systems General: Reports: Weakness, Fatigue. Denies: Fever, Malaise, Chills HEENT: Reports: No Symptoms. Denies: Headaches, Sore Throat Pulmonary: Reports: Shortness of Breath, Cough. Denies: Sputum, Wheezing Cardiovascular: Reports: Dyspnea on Exertion, Edema. Denies: Chest Pain, Palpitations Gastrointestinal: Reports: Decreased Appetite. Denies: Abdominal Pain, Constipation, Diarrhea, Nausea, Vomiting Genitourinary: Reports: No Symptoms. Denies: Pain Musculoskeletal: Reports: Back Pain Skin: Reports: No Symptoms Neurological: Reports: Confusion, Weakness - Patient Data Vitals - Most Recent: Last Vital Signs Temp 97.5 F 07/18/20 03:34 Pulse 92 07/18/20 03:34 Resp 22 H 07/18/20 03:34 BP 103/49 L 07/18/20 03:34 Pulse Ox 90 L 07/18/20 03:34 Weight - Most Recent: 186 lb 11.2 oz I&O - Last 24 Hours: Intake & Output 07/17/20 07/18/20 07/18/20 22:59 06:59 14:59 Intake Total 2360 750 Output Total 200 Balance 2360 550 Lab Results Last 24 Hours: Laboratory Results - last 24 hr 07/17/20 07/17/20 07/18/20 Range/Units 05:50 20:00 06:25 WBC 10.41 H (4.23-9.07) K/mm3 Manual Slide Review Abnormal smear Vancomycin Trough 13.9 (10.0-20.0) Luis Results Last 24 Hours: Microbiology 07/12/20 17:18 Aerobic Blood Culture - Preliminary Blood - Venous - Lab Draw NO GROWTH AFTER 5 DAYS Anaerobic Blood Culture - Final 07/12/20 16:41 Aerobic Blood Culture - Preliminary Blood - Venous NO GROWTH AFTER 5 DAYS Anaerobic Blood Culture - Preliminary NO GROWTH AFTER 5 DAYS 07/17/20 09:22 Gram Stain - Final Leg, Right Med Orders - Current: Current Medications Acetaminophen (Tylenol) 650 mg PO Q4H PRN PRN Reason: Pain/Fever Last Admin: 07/14/20 21:35 Dose: 650 mg Documented by: Folic Acid (Folic Acid) 1 mg PO DAILY [facility] Last Admin: 07/17/20 09:25 Dose: 1 mg Documented by: Furosemide (Lasix) 40 mg IVPUSH DAILY [facility] Last Admin: 07/17/20 09:26 Dose: 40 mg Documented by: Vancomycin HCl 1 gm/ Sodium (Chloride) 250 mls @ 250 mls/hr IV Q24H [facility] Last Admin: 07/17/20 21:38 Dose: 250 mls/hr Documented by: Ceftriaxone Sodium 2 gm/ (Sodium Chloride) 100 mls @ 200 mls/hr IV Q24H [facility] Last Admin: 07/17/20 14:43 Dose: 200 mls/hr Documented by: Lactulose (Cephulac) 30 gm PO TID [facility] Last Admin: 07/17/20 21:32 Dose: Not Given Documented by: Magnesium Oxide (Magnesium Oxide) 400 mg PO BID [facility] Last Admin: 07/17/20 21:37 Dose: 400 mg Documented by: Melatonin (Melatonin) 3 mg PO BEDTIME PRN PRN Reason: insomnia Midodrine (Midodrine) 5 mg PO TIDAC [facility] Last Admin: 07/18/20 06:05 Dose: 5 mg Documented by: Miscellaneous Information (Remove Patch) 0 ea TRDERM Q24H [facility] Last Admin: 07/17/20 14:44 Dose: 1 ea Documented by: Multivitamins (Thera) 1 each PO DAILY [facility] Last Admin: 07/17/20 09:25 Dose: 1 each Documented by: Nicotine (Habitrol) 14 mg TRDERM Q24H [facility] Last Admin: 07/17/20 14:43 Dose: 14 mg Documented by: Ondansetron HCl (Zofran) 4 mg IV Q6H PRN PRN Reason: Nausea/Vomiting Oxycodone HCl (Oxycodone) 5 mg PO Q6H PRN PRN Reason: Pain (moderate 4-6) Oxycodone HCl (Oxycodone) 10 mg PO Q6H PRN PRN Reason: Pain (severe 7-10) Last Admin: 07/18/20 06:18 Dose: 10 mg Documented by: Spironolactone (Aldactone) 100 mg PO DAILY [facility] Last Admin: 07/17/20 09:25 Dose: 100 mg Documented by: Thiamine HCl (Vitamin B-1) 100 mg PO DAILY [facility] Last Admin: 07/17/20 09:25 Dose: 100 mg Documented by: Vancomycin HCl (Pharmacy To Dose - Vancomycin) 1 dose .XX ASDIRECTED [facility] Discontinued Medications Alprazolam (Xanax) 1 mg PO BEDTIME ONE Stop: 07/12/20 21:01 Last Admin: 07/12/20 21:24 Dose: 1 mg Documented by: Alprazolam (Xanax) 1 mg PO BEDTIME [facility] Folic Acid (Folic Acid) 1 mg PO DAILY [facility] Furosemide (Lasix) 40 mg IVPUSH NOW ONE Stop: 07/12/20 19:17 Last Admin: 07/12/20 19:38 Dose: 40 mg Documented by: Furosemide (Lasix) 40 mg IVPUSH NOW ONE Stop: 07/13/20 09:15 Last Admin: 07/13/20 09:42 Dose: 40 mg Documented by: Furosemide (Lasix) 40 mg IVPUSH DAILY [facility] Furosemide (Lasix) 20 mg IVPUSH DAILY [facility] Last Admin: 07/14/20 10:10 Dose: 20 mg Documented by: Sodium Chloride (Normal Saline) 1,000 mls @ 125 mls/hr IV ASDIRECTED [facility] Last Admin: 07/12/20 17:03 Dose: 125 mls/hr Documented by: Vancomycin HCl 1.5 gm/ Sodium (Chloride) 500 mls @ 250 mls/hr IV ONETIME ONE Stop: 07/12/20 19:21 Last Admin: 07/12/20 20:07 Dose: 250 mls/hr Documented by: Vancomycin HCl 1 gm/ Sodium (Chloride) 250 mls @ 250 mls/hr IV Q12H [facility] Last Admin: 07/14/20 23:00 Dose: 250 mls/hr Documented by: Ceftriaxone Sodium 2 gm/ (Sodium Chloride) 100 mls @ 200 mls/hr IV Q24H [facility] Last Admin: 07/14/20 14:38 Dose: 200 mls/hr Documented by: Sodium Chloride (Normal Saline) 1,000 mls @ 100 mls/hr IV ASDIRECTED [facility] Stop: 07/15/20 00:59 Last Admin: 07/14/20 00:04 Dose: 100 mls/hr Documented by: Lactulose (Cephulac) 20 gm PO TID [facility] Last Admin: 07/13/20 15:46 Dose: Not Given Documented by: Lactulose (Cephulac) 20 gm PO TID [facility] Last Admin: 07/15/20 10:21 Dose: 20 gm Documented by: Non-Formulary Medication (Magnesium Oxide [Magnesium Oxide]) 400 mg PO DAILY [facility] Oxycodone HCl (Oxycodone) 5 - 10 mg PO Q6H PRN PRN Reason: Pain Potassium Chloride (Klor-Con M20) 40 meq PO TID [facility] Stop: 07/14/20 09:01 Last Admin: 07/14/20 10:09 Dose: 40 meq Documented by: Spironolactone (Aldactone) 25 mg PO ONETIME ONE Stop: 07/12/20 19:18 Last Admin: 07/12/20 19:38 Dose: 25 mg Documented by: Spironolactone (Aldactone) 25 mg PO ONETIME ONE Stop: 07/13/20 09:16 Last Admin: 07/13/20 09:50 Dose: 25 mg Documented by: Spironolactone (Aldactone) 25 mg PO DAILY [facility] Spironolactone (Aldactone) 50 mg PO DAILY [facility] Last Admin: 07/15/20 10:20 Dose: 50 mg Documented by: Thiamine HCl (Vitamin B-1) 100 mg PO DAILY [facility] Vancomycin HCl (Vancocin) Confirm Administered Dose 1 gm .ROUTE .STK-MED ONE Stop: 07/17/20 21:34 Last Admin: 07/17/20 23:07 Dose: Not Given Documented by: Venlafaxine HCl (Effexor) 37.5 mg PO BID [facility] - Exam Quality Assessment: Supplemental Oxygen General: Alert, Cooperative, No Acute Distress. No: Oriented HEENT: Pupils Equal, Pupils Reactive, Mucous Membr. Moist/[place] Neck: Supple, Trachea Midline Lungs: Normal Respiratory Effort, Decreased Breath Sounds Cardiovascular: Regular Rate, Regular Rhythm GI/Abdominal Exam: Normal Bowel Sounds, Soft, Non-Tender, No Distention (Male) Exam: Deferred Back Exam: Normal Inspection, Full Range of Motion Extremities: Pedal Edema, Leg Pain (improved ), Increased Warmth (improved ), Redness (improved ) Skin: Warm, Dry, Intact Wound/Incisions: Healing Well Neurological: No New Focal Deficit Psy/Mental Status: Alert Sepsis Event Note - Evaluation Sepsis Screening Result: Sepsis Risk - Focused Exam Vital Signs: Vital Signs Temp Pulse Resp BP Pulse Ox Pulse Ox 07/18/20 03:34 97.5 F 92 22 H 103/49 L 90 L 07/18/20 00:18 92 90 L 07/18/20 00:14 98.4 F 87 18 100/57 L 88 L 07/17/20 21:47 101 H 92 L 07/17/20 21:29 98.4 F 99 16 94/62 86 L 07/17/20 21:00 92 L - Problem List & Annotations (1) Tobacco use disorder SNOMED Code(s): 538212926 Code(s): F17.200 - NICOTINE DEPENDENCE, UNSPECIFIED, UNCOMPLICATED Status: Chronic Priority: Medium Current Visit: No (2) History of alcohol abuse SNOMED Code(s): 459861156 Code(s): F10.11 - ALCOHOL ABUSE, IN REMISSION Status: Chronic Priority: Medium Current Visit: No (3) Esophageal varices without bleeding SNOMED Code(s): 81345226 Code(s): I85.00 - ESOPHAGEAL VARICES WITHOUT BLEEDING Status: Chronic Priority: Medium Current Visit: No Qualifiers: Esophageal varices type: unspecified type Qualified Code(s): I85.00 - Esophageal varices without bleeding (4) Failure to thrive SNOMED Code(s): 80058491 Code(s): VNM9957 - Status: Acute Priority: High Current Visit: Yes Qualifiers: Failure to thrive age range: in adult Qualified Code(s): R62.7 - Adult failure to thrive (5) Difficulty walking SNOMED Code(s): 224672573 Code(s): R26.2 - DIFFICULTY IN WALKING, NOT ELSEWHERE CLASSIFIED Status: Acute Priority: High Current Visit: Yes (6) Medical non-compliance SNOMED Code(s): 660277998 Code(s): Z91.19 - PATIENT'S NONCOMPLIANCE W OTH MEDICAL TREATMENT AND REGIMEN Status: Chronic Priority: High Current Visit: Yes (7) Serum ammonia increased SNOMED Code(s): 8390027 Code(s): E72.20 - DISORDER OF UREA CYCLE METABOLISM, UNSPECIFIED Status: Chronic Priority: High Current Visit: Yes (8) Anemia SNOMED Code(s): 529894708 Code(s): D64.9 - ANEMIA, UNSPECIFIED Status: Chronic Current Visit: Yes Qualifiers: Anemia type: bone marrow failure Bone marrow failure anemia type: unspecified bone marrow failure Qualified Code(s): D61.9 - Aplastic anemia, unspecified (9) Bilateral lower leg cellulitis SNOMED Code(s): 462548530 Code(s): L03.116 - CELLULITIS OF LEFT LOWER LIMB; L03.115 - CELLULITIS OF RIGHT LOWER LIMB Status: Acute Priority: High Current Visit: Yes (10) Cirrhosis of liver SNOMED Code(s): 46857368 Code(s): K74.60 - UNSPECIFIED CIRRHOSIS OF LIVER Status: Chronic Priority: High Current Visit: Yes Qualifiers: Hepatic cirrhosis type: alcoholic cirrhosis Ascites presence: with ascites Qualified Code(s): K70.31 - Alcoholic cirrhosis of liver with ascites (11) Dependent edema SNOMED Code(s): 586744605 Code(s): R60.9 - EDEMA, UNSPECIFIED Status: Acute Priority: High Current Visit: Yes (12) Elevated INR SNOMED Code(s): 450059686 Code(s): R79.1 - ABNORMAL COAGULATION PROFILE Status: Chronic Priority: Medium Current Visit: Yes (13) Hypokalemia SNOMED Code(s): 15461409 Code(s): E87.6 - HYPOKALEMIA Status: Resolved Priority: High Current Visit: Yes (14) Hyponatremia SNOMED Code(s): 80975019 Code(s): E87.1 - HYPO-OSMOLALITY AND HYPONATREMIA Status: Acute Priority: High Current Visit: Yes (15) Thrombocytopenia SNOMED Code(s): 390925810 Code(s): D69.6 - THROMBOCYTOPENIA, UNSPECIFIED Status: Chronic Priority: High Current Visit: Yes (16) Depression SNOMED Code(s): 12937551 Code(s): F32.9 - MAJOR DEPRESSIVE DISORDER, SINGLE EPISODE, UNSPECIFIED Status: Chronic Priority: Medium Current Visit: Yes Qualifiers: Depression Type: other depression Qualified Code(s): F32.89 - Other specified depressive episodes (17) Hepatic encephalopathy SNOMED Code(s): 16454344 Code(s): K72.90 - HEPATIC FAILURE, UNSPECIFIED WITHOUT COMA Status: Chronic Priority: High Current Visit: Yes (18) Lactic acidosis SNOMED Code(s): 20638132 Code(s): E87.2 - ACIDOSIS Status: Acute Priority: High Current Visit: Yes (19) Hypoxia SNOMED Code(s): 283634921 Code(s): R09.02 - HYPOXEMIA Status: Acute Priority: High Current Visit: Yes (20) Elevated d-dimer SNOMED Code(s): 585406579 Code(s): R79.89 - OTHER SPECIFIED ABNORMAL FINDINGS OF BLOOD CHEMISTRY Status: Acute Priority: High Current Visit: Yes (21) Respiratory failure SNOMED Code(s): 112650979 Code(s): J96.90 - RESPIRATORY FAILURE, UNSP, UNSP W HYPOXIA OR HYPERCAPNIA Status: Acute Priority: High Current Visit: Yes Qualifiers: Chronicity: acute Respiratory failure complication: hypoxia Qualified Code(s): J96.01 - Acute respiratory failure with hypoxia (22) Suspected COVID-19 virus infection SNOMED Code(s): 160782021 Code(s): Z20.828 - CONTACT W AND EXPOSURE TO OTH VIRAL COMMUNICABLE DISEASES Status: Acute Priority: High Current Visit: Yes - Problem List Review Problem List Initiated/Reviewed/Updated: Yes - My Orders Last 24 Hours: My Active Orders 07/18/20 07:32 CXR [Chest 2V] [CR] Routine 07/18/20 08:00 Echo 2D wo Cont [US] Routine - Assessment Assessment:: 07/13/2020 - Day of Admission -64 yo Male who presents to ED on 07/12/20 with confusion and bilateral cellulitis -History of hepatic encephalopathy, End stage liver disease, ETOH abuse, Tobacco use, Esophageal varices with banding, depression, dependant edema -Patient admits to ED provider that he has not been taking his medications because he forgets -Denies any ETOH use for past 2 months (ETOH in ED was 0.00) -Kept in ED overnight due to bed shortage statewide and us being on diversion -Started on Vancomycin in ED foe cellulitis -Given lactulose, spironolactone, lasix, IV fluids, Xanax, vancomycin in ED -No WBC in ED, although likely cannot mount immunologic defense due to alcoholic bone marrow suppression -Sepsis criteria: -Bilateral cellulitis, No tachycardia, tachypnea, WBC, or fever -Hypotension likely 2/2 end stage liver failure, Lactate >2 likely 2/2 chronic ETOH abuse, Bilirubin >2 chronically, Platelets <100 chronically, INR elevated 2/2 End stage liver disease -Does not meet criteria -Per ED provider social work states patient apartment was very unkempt -Social work reports patient has been known to leave water running and burners on in apartment. Patient is being evicted. 07/14/2020 * Small improvement in cellulitis * Procalcitonin was negative at 0.05 * White count 6.1 and CRP 2.1 * Lactic acid is chronically elevated due to liver disease at 2.6. Total bilirubin elevated at 7.8 and direct bilirubin 3.8 * Oxygen requirement has increased to 4 L/min * Sodium chronically low at 131 07/15/2020 * Continued improvement in cellulitis * WBC remains WNL at 7.19 with CRP of 2.2 * Oxygen requirement has decreased to 2L * Blood cultures negative thus far * Sodium improved to 133 * Potassium 4.3 * Dr. Powell saw patient and recommends withholding patients effexor and monitoring * Patient remains quite confused 07/16/20 * Continue current treatment * Routine AM labs with Ammonia * Midodrine 5 mg po TIDAC * Remains confused with hallucinations (seeing squirrels inside his room) * May consider anti-psychotic medications if needed * Need Tele-psych consult 07/17/20 * Continue current treatment: Rocephin and Vancomycin * Routine AM labs * Offered ID but patient refused * Wound culture on right ramos * Remains confused with hallucinations (seeing squirrels inside his room) * May consider anti-psychotic medications if needed * Need Tele-psych follow up * LOS > 96 HRS due to need for placement 07/18/20 * WBC improved to 10.41 from 11.68 * CRP 9.1 from 5.7 * Creatinine 1.4 with GFR of 51 * Requiring 6L O2 via NC * Wound culture showing no growth * MELD-Na score on admission calculated to be 29 points - 27-32% estimated 90- day mortality * D-Dimer 7.29 * BNP 1009 * INR 2.33 * CTA shows pleural effusions and ground glass opacities concerning for vir al/atypical pneumonia\ * Discussed plan with Dr. Castro - will start covid-19 treatment protocol - Plan Plan:: Bilateral cellulitis/Stasis Dermatitis, improving Dependant edema Small hematoma/abscess on right ramos Leukocytosis Hypoxemia Elevated D-dimer Respiratory failure Suspected COVID-19 infection -Monitor CBC, CMP, CRP daily, D-Dimer Q48h -Continued vancomycin with pharmacy to dose -Continue Rocephin Q24hr -Monitor leg inflammation -On IV Lasix to 40 mg daily -O2 as needed -Wound culture for on right ramos shows no growth -Obtain Echo today -MRSA screen - if negative consider stopping vancomycin -Start azithromycin to cover atypical pneumonia -Obtain repeat COVID-19 screen today -RVP, mycoplasma, strep pneumo - all pending -Ferritin and LDH pending -RT unable to obtain ABG after several attempts -Procalcitonin pending -Add telemetry -Discussed with Dr. 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 pending -Will likely need placement at discharge -Rn Procedures consult -Monitor electrolytes/magnesium -Supplement electrolytes as needed -On Midodrine 5 mg po TID History of ETOH abuse Hepatic encephalopathy End-stage ETOH related cirrhosis Elevated INR Elevated Bilirubin Hx/o esophageal varices Thrombocytopenia Macrocytic Normochromic Anemia Elevated serum ammonia Hyperlactatemia Hallucinations -Continue Lactulose 30mg TID and Lasix 40 mg po daily -Continue spironolactone 50mg daily -Pharmacological DVT prophylaxis contraindicated -Monitor CBC -Continue folic acid, MV, thiamine supplementation -Low protein diet -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 Procalcitonin was 0.05 ruling out sepsis. -Routine AM labs with Ammonia Depression -Dr. Powell consult - recommends monitoring -Discontinue Effexor Tobacco use disorder -Cessation counseling at discharge -Nicotine patches Code status: DNR/DNI PCP: Dr. Mccollum DVT prophylaxis: Pharmacological prophylaxis contraindicated due to significant esophageal varices history, Elevated INR, thrombocytopenia. Mechanical prophylaxis contraindicated due to bilateral LE cellulitis, dependant LE edema. Disposition: Patient admitted due to cellulitis, electrolyte abnormalities, failure to thrive and need for placement. Social: Patient reportedly lives in an apartment. [facility] is following patient. Patient has history of leaving water running and forgetting to turn of burner. Per ED note apartment is very unkempt and there are concerns for patient safety. SW/CM consulted. Prognosis: Overall poor prognosis due to end-stage ETOH cirrhosis. LOS >96 HRS due to need for placement and continued work-up for respiratory failure.
--- NOTE | 2020-07-18 10:20 | CR ---
PROCEDURE INFORMATION: Exam: XR Chest, 2 Views Exam date and time: 07/15/2020 10:49 AM Age: 64 years old Clinical indication: Other: Hypoxia TECHNIQUE: Imaging protocol: XR of the chest Views: 2 views. COMPARISON: CR Chest 1V Frontal 07/12/2020 4:16 PM FINDINGS: Lungs: Progression of slight infiltrates in the right mid and lower lung. Pleural space: New moderate left pleural effusion and tiny right pleural effusion. Heart/Mediastinum: Unremarkable. No cardiomegaly. Bones/joints: Degenerate arthritis in the spine. Plate screw fixation lower cervical spine. IMPRESSION: 1. New bilateral pleural effusions larger on left. 2. Progression of slight infiltrates in the right mid and lower lung Thank you for allowing us to participate in the care of your patient. Dictated and Authenticated by: Anni Collier MD 07/15/2020 12:08 PM Central Time ([place] & [place]) [facility]
[2020-07-18] MEDS: Lactulose Soln 10 GM/15 ML 30 ML UD Cup PO SCH ×3 (12:08→20:56)
[2020-07-18] MEDS: Folic Acid 1 MG Tab PO SCH (12:09)
[2020-07-18] MEDS: Spironolactone 100 MG Tab PO SCH (12:10)
[2020-07-18] MEDS: Multivitamins,Therapeutic Tab PO SCH (12:10)
[2020-07-18] MEDS: Furosemide 40 MG/4 ML VIAL IVPUSH SCH (12:10)
[2020-07-18] MEDS: Thiamine 100 MG Tab PO SCH (12:10)
[2020-07-18] MEDS: Magnesium Oxide 400 MG Tab PO SCH ×2 (12:16→20:57)
[2020-07-18] MEDS ORDERED: Sodium Chloride 0.9% 10 ML Syringe FLUSH PRN (13:37)
[2020-07-18] MEDS ORDERED: Iopamidol 755 Mg/ML 100 ML Bottle IVPUSH ONE (13:37)
[2020-07-18] MEDS ORDERED: Sodium Chloride 0.9% 100 ML IV SCH (13:45)
--- NOTE | 2020-07-18 13:52 | CR ---
PROCEDURE INFORMATION: Exam: XR Chest, 2 Views Exam date and time: 07/18/2020 9:51 AM Age: 64 years old Clinical indication: Dyspnea; Patient HX: Increased O2 demand TECHNIQUE: Imaging protocol: XR of the chest Views: 2 views. COMPARISON: DX Chest 2V 07/15/2020 10:49 AM FINDINGS: Lungs: Multifocal ground-glass airspace opacity is present throughout both lungs. The finding is concerning for possible pneumonia. Consider atypical/viral etiologies. Pleural space: Unremarkable. No pleural effusion. No pneumothorax. Heart/Mediastinum: Heart size is moderately prominent. Bones/joints: Unremarkable. IMPRESSION: Cardiomegaly and multifocal ground-glass airspace opacities. Consider possible viral pneumonia. Thank you for allowing us to participate in the care of your patient. Dictated and Authenticated by: Holden Chirinos MD 07/18/2020 11:01 AM Central Time ([place] & [place]) [facility]
--- NOTE | 2020-07-18 14:36 | CT ---
PROCEDURE INFORMATION: Exam: CT Chest With Contrast; Diagnostic Exam date and time: 07/18/2020 1:46 PM Age: 64 years old Clinical indication: Shortness of breath; Patient HX: SOB increasing oxygen need elevated d dimer previous reports sent in images done toda TECHNIQUE: Imaging protocol: Diagnostic computed tomography of the chest with intravenous contrast. 3D rendering (Not supervised by radiologist): MIP and/or 3D reconstructed images were created by the technologist. Radiation optimization: All CT scans at this facility use at least one of these dose optimization techniques: automated exposure control; mA and/or kV adjustment per patient size (includes targeted exams where dose is matched to clinical indication); or iterative reconstruction. Contrast material: ISOVUE 370; Contrast volume: 100 ml; Contrast route: INTRAVENOUS (IV); COMPARISON: CT Ang Chest 10/08/2016 1:48 PM FINDINGS: Lungs: Chronic appearing interstitial changes are present within the lung parenchyma with diffuse ground-glass attenuation throughout both lungs. Findings are concerning for possible pneumonia. Consider atypical/viral etiologies. Pleural space: A moderate size pleural effusion is present on the left occupying approximately 40% volume left hemithorax. Heart: Unremarkable. No cardiomegaly. No pericardial effusion. Aorta: Unremarkable. No aortic aneurysm. Lymph nodes: Unremarkable. No enlarged lymph nodes. Liver: The liver is nodular in contour suggestive of cirrhosis. Intraperitoneal space: Moderate amount of ascites is noted within the upper abdomen. Bones/joints: Unremarkable. No acute fracture. Soft tissues: Unremarkable. IMPRESSION: 1. No pulmonary embolism present. 2. Extensive ground-glass opacity throughout the lungs concerning for possible atypical/viral pneumonia. 3. Large left pleural effusion. 4. Moderate ascites within the abdomen. 5. Changes within the liver suggestive of probable cirrhosis. Thank you for allowing us to participate in the care of your patient. Dictated and Authenticated by: Holden Chirinos MD 07/18/2020 3:20 PM Central Time ([place] & [place]) [facility]
[2020-07-18] MEDS: cefTRIAXone 2 GM in Sodium Chloride 0.9% 100 ML IV SCH (15:41)
[2020-07-18] MEDS: Nicotine 14 MG/24 Hr Patch TRDERM SCH (15:51)
[2020-07-18] MEDS ORDERED: REMDESIVIR 200 MG in Sodium Chloride 0.9% 250 ML IV ONE (16:30)
[2020-07-18] MEDS: Azithromycin 500 MG in Sodium Chloride 0.9% 250 ML IV SCH (16:39)
[2020-07-18] MEDS: Dexamethasone 4 MG Tab PO SCH (16:39)
[2020-07-19] MEDS: Midodrine 5 MG Tab PO SCH ×3 (06:05→17:14)
--- NOTE | 2020-07-19 07:24 | PCM.PN ---
- General Info Date of Service: 07/19/20 Admission Dx/Problem (Free Text): Admission Diagnosis/Problem Admission Diagnosis/Problem Cellulitis Subjective Update: Consulted Dr. Shipley for thoracentesis and possible paracentesis due to large pleural effusion noted on CT scan. Discussion ensued between myself, Dr. Castro, and Dr. Shipley about medical necessity of procedure. Patient is fairly confused, although this does seem to wax and wane. Patient has elevated ammonia levels with hepatic encephalopathy. Patient does not have a POA and per patient has no real communication with family members. Given patients deteriorating respiratory status and increasing need for support it was deemed an urgent procedure. We collectively feel it is in the best interest of the patient. It is noted given the patients elevated INR (2.24 today) that he would be at higher risk of bleeding, however it is felt the benefit of the procedure will outweigh the risks. Dr. Shipley is able to remove nearly 1L of clear straw colored fluid from the patients left chest. Post-procedure CXR shows improvement of pulmonary effusion and no signs of pneumothorax. Dr. Hamilton surveyed the patients abdomen but was unable to find a definitive area of enough fluid to warrant paracentesis. Otherwise joyce reports stable SOB and myalgias. His legs continue to improve. Will continue current treatment plan. CXR after thoracentesis showed improvement. Functional Status: Reports: Pain Controlled, Tolerating Diet, Ambulating, Urinating, Incentive Spirometry. Denies: New Symptoms - Review of Systems General: Reports: No Symptoms, Weakness, Fatigue. Denies: Fever, Malaise, Chills HEENT: Reports: No Symptoms. Denies: Eye Pain, Headaches Pulmonary: Reports: Shortness of Breath. Denies: Cough, Sputum, Wheezing Cardiovascular: Reports: Dyspnea on Exertion. Denies: Chest Pain, Palpitations Gastrointestinal: Reports: Decreased Appetite. Denies: Abdominal Pain, Constipation, Diarrhea, Nausea, Vomiting Genitourinary: Reports: No Symptoms. Denies: Pain Musculoskeletal: Reports: Other (Generalized myalgias ) Skin: Reports: No Symptoms. Denies: Cyanosis Neurological: Reports: Confusion Psychiatric: Reports: No Symptoms - Patient Data Vitals - Most Recent: Last Vital Signs Temp 98.6 F 07/19/20 05:06 Pulse 85 07/19/20 05:06 Resp 16 07/19/20 05:06 BP 100/61 07/19/20 05:06 Pulse Ox 90 L 07/19/20 05:06 Weight - Most Recent: 192 lb 8 oz I&O - Last 24 Hours: Intake & Output 07/18/20 07/19/20 07/19/20 22:59 06:59 14:59 Intake Total 1450 700 Balance 1450 700 Lab Results Last 24 Hours: Laboratory Results - last 24 hr 07/18/20 07/18/20 07/18/20 Range/Units 06:25 06:25 06:25 WBC (4.23-9.07) K/mm3 RBC (4.63-6.08) M/mm3 Hgb (13.7-17.5) gm/dl Hct (40.1-51.0) % MCV (79.0-92.2) fl MCH (25.7-32.2) pg MCHC (32.2-35.5) g/dl RDW Std Deviation (35.1-43.9) fL Plt Count (163-337) K/mm3 MPV (9.4-12.3) fl Neut % (Auto) (34.0-67.9) % Lymph % (Auto) (21.8-53.1) % [place] % (Auto) (5.3-12.2) % Eos % (Auto) (0.8-7.0) Baso % (Auto) (0.1-1.2) % Neut # (Auto) (1.78-5.38) K/mm3 Lymph # (Auto) (1.32-3.57) K/mm3 [place] # (Auto) (0.30-0.82) K/mm3 Eos # (Auto) (0.04-0.54) K/mm3 Baso # (Auto) (0.01-0.08) K/mm3 Neutrophils % (Manual) 77 H (40-60) % Band Neutrophils % 0 (0-10) % Lymphocytes % (Manual) 13 L (20-40) % Atypical Lymphs % 0 % Monocytes % (Manual) 8 (2-10) % Eosinophils % (Manual) 2 (0.8-7.0) % Basophils % (Manual) 0 L (0.2-1.2) Manual Slide Review Platelet Estimate Decreased Poikilocytosis 1+ slight Anisocytosis 1+ slight RBC Morph Comment Abnormal PT (9.7-12.0) SECONDS INR D-Dimer, Quantitative (0.19-0.50) mg/L Sodium 130 L (136-145) mEq/L Potassium 4.0 (3.5-5.1) mEq/L Chloride 97 L (98-107) mEq/L Carbon Dioxide 23 (21-32) mEq/L Anion Gap 14.0 (5-15) BUN 25 H (7-18) mg/dL Creatinine 1.4 H (0.7-1.3) mg/dL Est Cr Clr Drug Dosing 51.08 mL/min Estimated GFR (MDRD) 51 (>60) mL/min BUN/Creatinine Ratio 17.9 (14-18) Glucose 96 (80-115) mg/dL Calcium 8.4 L (8.5-10.1) mg/dL Phosphorus (2.6-4.7) mg/dL Magnesium (1.8-2.4) mg/dl Ferritin (26-388) ng/ml Total Bilirubin 7.6 H (0.2-1.0) mg/dL AST 57 H (15-37) U/L ALT 46 (16-63) U/L Alkaline Phosphatase 85 (46-116) U/L Ammonia 66 H (11-32) umol/L Lactate Dehydrogenase (85-227) U/L C-Reactive Protein 9.1 H* (<1.0) mg/dL NT-Pro-B Natriuret Pep (0-125) pg/mL Total Protein 6.2 L (6.4-8.2) g/dl Albumin 2.0 L (3.4-5.0) g/dl Globulin 4.2 gm/dL Albumin/Globulin Ratio 0.5 L (1-2) Procalcitonin (<0.10) ng/mL Mycoplasma pneumon IgM (NEGATIVE) SARS-CoV-2 RNA (ARTEMIO) (NEGATIVE) 07/18/20 07/18/20 07/18/20 Range/Units 06:25 06:25 06:25 WBC (4.23-9.07) K/mm3 RBC (4.63-6.08) M/mm3 Hgb (13.7-17.5) gm/dl Hct (40.1-51.0) % MCV (79.0-92.2) fl MCH (25.7-32.2) pg MCHC (32.2-35.5) g/dl RDW Std Deviation (35.1-43.9) fL Plt Count (163-337) K/mm3 MPV (9.4-12.3) fl Neut % (Auto) (34.0-67.9) % Lymph % (Auto) (21.8-53.1) % [place] % (Auto) (5.3-12.2) % Eos % (Auto) (0.8-7.0) Baso % (Auto) (0.1-1.2) % Neut # (Auto) (1.78-5.38) K/mm3 Lymph # (Auto) (1.32-3.57) K/mm3 [place] # (Auto) (0.30-0.82) K/mm3 Eos # (Auto) (0.04-0.54) K/mm3 Baso # (Auto) (0.01-0.08) K/mm3 Neutrophils % (Manual) (40-60) % Band Neutrophils % (0-10) % Lymphocytes % (Manual) (20-40) % Atypical Lymphs % % Monocytes % (Manual) (2-10) % Eosinophils % (Manual) (0.8-7.0) % Basophils % (Manual) (0.2-1.2) Manual Slide Review Platelet Estimate Poikilocytosis Anisocytosis RBC Morph Comment PT (9.7-12.0) SECONDS INR D-Dimer, Quantitative (0.19-0.50) mg/L Sodium (136-145) mEq/L Potassium (3.5-5.1) mEq/L Chloride (98-107) mEq/L Carbon Dioxide (21-32) mEq/L Anion Gap (5-15) BUN (7-18) mg/dL Creatinine (0.7-1.3) mg/dL Est Cr Clr Drug Dosing mL/min Estimated GFR (MDRD) (>60) mL/min BUN/Creatinine Ratio (14-18) Glucose (80-115) mg/dL Calcium (8.5-10.1) mg/dL Phosphorus (2.6-4.7) mg/dL Magnesium (1.8-2.4) mg/dl Ferritin 513 H (26-388) ng/ml Total Bilirubin (0.2-1.0) mg/dL AST (15-37) U/L ALT (16-63) U/L Alkaline Phosphatase (46-116) U/L Ammonia (11-32) umol/L Lactate Dehydrogenase 475 H (85-227) U/L C-Reactive Protein (<1.0) mg/dL NT-Pro-B Natriuret Pep (0-125) pg/mL Total Protein (6.4-8.2) g/dl Albumin (3.4-5.0) g/dl Globulin gm/dL Albumin/Globulin Ratio (1-2) Procalcitonin 0.43 H (<0.10) ng/mL Mycoplasma pneumon IgM (NEGATIVE) SARS-CoV-2 RNA (ARTEMIO) (NEGATIVE) 07/18/20 07/18/20 07/18/20 Range/Units 06:25 06:25 12:34 WBC (4.23-9.07) K/mm3 RBC (4.63-6.08) M/mm3 Hgb (13.7-17.5) gm/dl Hct (40.1-51.0) % MCV (79.0-92.2) fl MCH (25.7-32.2) pg MCHC (32.2-35.5) g/dl RDW Std Deviation (35.1-43.9) fL Plt Count (163-337) K/mm3 MPV (9.4-12.3) fl Neut % (Auto) (34.0-67.9) % Lymph % (Auto) (21.8-53.1) % [place] % (Auto) (5.3-12.2) % Eos % (Auto) (0.8-7.0) Baso % (Auto) (0.1-1.2) % Neut # (Auto) (1.78-5.38) K/mm3 Lymph # (Auto) (1.32-3.57) K/mm3 [place] # (Auto) (0.30-0.82) K/mm3 Eos # (Auto) (0.04-0.54) K/mm3 Baso # (Auto) (0.01-0.08) K/mm3 Neutrophils % (Manual) (40-60) % Band Neutrophils % (0-10) % Lymphocytes % (Manual) (20-40) % Atypical Lymphs % % Monocytes % (Manual) (2-10) % Eosinophils % (Manual) (0.8-7.0) % Basophils % (Manual) (0.2-1.2) Manual Slide Review Platelet Estimate Poikilocytosis Anisocytosis RBC Morph Comment PT 24.5 H (9.7-12.0) SECONDS INR 2.33 D-Dimer, Quantitative (0.19-0.50) mg/L Sodium (136-145) mEq/L Potassium (3.5-5.1) mEq/L Chloride (98-107) mEq/L Carbon Dioxide (21-32) mEq/L Anion Gap (5-15) BUN (7-18) mg/dL Creatinine (0.7-1.3) mg/dL Est Cr Clr Drug Dosing mL/min Estimated GFR (MDRD) (>60) mL/min BUN/Creatinine Ratio (14-18) Glucose (80-115) mg/dL Calcium (8.5-10.1) mg/dL Phosphorus (2.6-4.7) mg/dL Magnesium (1.8-2.4) mg/dl Ferritin (26-388) ng/ml Total Bilirubin (0.2-1.0) mg/dL AST (15-37) U/L ALT (16-63) U/L Alkaline Phosphatase (46-116) U/L Ammonia (11-32) umol/L Lactate Dehydrogenase (85-227) U/L C-Reactive Protein (<1.0) mg/dL NT-Pro-B Natriuret Pep 1009 H (0-125) pg/mL Total Protein (6.4-8.2) g/dl Albumin (3.4-5.0) g/dl Globulin gm/dL Albumin/Globulin Ratio (1-2) Procalcitonin (<0.10) ng/mL Mycoplasma pneumon IgM Negative (NEGATIVE) SARS-CoV-2 RNA (ARTEMIO) (NEGATIVE) 07/18/20 07/18/20 07/19/20 Range/Units 12:40 14:50 04:47 WBC (4.23-9.07) K/mm3 RBC (4.63-6.08) M/mm3 Hgb (13.7-17.5) gm/dl Hct (40.1-51.0) % MCV (79.0-92.2) fl MCH (25.7-32.2) pg MCHC (32.2-35.5) g/dl RDW Std Deviation (35.1-43.9) fL Plt Count (163-337) K/mm3 MPV (9.4-12.3) fl Neut % (Auto) (34.0-67.9) % Lymph % (Auto) (21.8-53.1) % [place] % (Auto) (5.3-12.2) % Eos % (Auto) (0.8-7.0) Baso % (Auto) (0.1-1.2) % Neut # (Auto) (1.78-5.38) K/mm3 Lymph # (Auto) (1.32-3.57) K/mm3 [place] # (Auto) (0.30-0.82) K/mm3 Eos # (Auto) (0.04-0.54) K/mm3 Baso # (Auto) (0.01-0.08) K/mm3 Neutrophils % (Manual) (40-60) % Band Neutrophils % (0-10) % Lymphocytes % (Manual) (20-40) % Atypical Lymphs % % Monocytes % (Manual) (2-10) % Eosinophils % (Manual) (0.8-7.0) % Basophils % (Manual) (0.2-1.2) Manual Slide Review Platelet Estimate Poikilocytosis Anisocytosis RBC Morph Comment PT (9.7-12.0) SECONDS INR D-Dimer, Quantitative 7.29 H (0.19-0.50) mg/L Sodium 131 L (136-145) mEq/L Potassium 4.4 (3.5-5.1) mEq/L Chloride 98 (98-107) mEq/L Carbon Dioxide 22 (21-32) mEq/L Anion Gap 15.4 H (5-15) BUN 29 H (7-18) mg/dL Creatinine 1.5 H (0.7-1.3) mg/dL Est Cr Clr Drug Dosing 47.68 mL/min Estimated GFR (MDRD) 47 (>60) mL/min BUN/Creatinine Ratio 19.3 H (14-18) Glucose 122 H (80-115) mg/dL Calcium 8.4 L (8.5-10.1) mg/dL Phosphorus (2.6-4.7) mg/dL Magnesium (1.8-2.4) mg/dl Ferritin (26-388) ng/ml Total Bilirubin 6.5 H (0.2-1.0) mg/dL AST 59 H (15-37) U/L ALT 46 (16-63) U/L Alkaline Phosphatase 77 (46-116) U/L Ammonia (11-32) umol/L Lactate Dehydrogenase (85-227) U/L C-Reactive Protein 11.4 H* (<1.0) mg/dL NT-Pro-B Natriuret Pep (0-125) pg/mL Total Protein 5.9 L (6.4-8.2) g/dl Albumin 1.9 L (3.4-5.0) g/dl Globulin 4.0 gm/dL Albumin/Globulin Ratio 0.5 L (1-2) Procalcitonin (<0.10) ng/mL Mycoplasma pneumon IgM (NEGATIVE) SARS-CoV-2 RNA (ARTEMIO) Negative (NEGATIVE) 07/19/20 07/19/20 Range/Units 04:47 04:47 WBC 8.31 (4.23-9.07) K/mm3 RBC 2.71 L (4.63-6.08) M/mm3 Hgb 9.1 L (13.7-17.5) gm/dl Hct 27.1 L (40.1-51.0) % MCV 100.0 H (79.0-92.2) fl MCH 33.6 H (25.7-32.2) pg MCHC 33.6 (32.2-35.5) g/dl RDW Std Deviation 69.8 H (35.1-43.9) fL Plt Count 60 L (163-337) K/mm3 MPV 9.8 (9.4-12.3) fl Neut % (Auto) 86.6 H (34.0-67.9) % Lymph % (Auto) 8.1 L (21.8-53.1) % [place] % (Auto) 4.8 L (5.3-12.2) % Eos % (Auto) 0 L (0.8-7.0) Baso % (Auto) 0.1 (0.1-1.2) % Neut # (Auto) 7.20 H (1.78-5.38) K/mm3 Lymph # (Auto) 0.67 L (1.32-3.57) K/mm3 [place] # (Auto) 0.40 (0.30-0.82) K/mm3 Eos # (Auto) 0.00 L (0.04-0.54) K/mm3 Baso # (Auto) 0.01 (0.01-0.08) K/mm3 Neutrophils % (Manual) (40-60) % Band Neutrophils % (0-10) % Lymphocytes % (Manual) (20-40) % Atypical Lymphs % % Monocytes % (Manual) (2-10) % Eosinophils % (Manual) (0.8-7.0) % Basophils % (Manual) (0.2-1.2) Manual Slide Review Abnormal smear Platelet Estimate Poikilocytosis Anisocytosis RBC Morph Comment PT (9.7-12.0) SECONDS INR D-Dimer, Quantitative (0.19-0.50) mg/L Sodium (136-145) mEq/L Potassium (3.5-5.1) mEq/L Chloride (98-107) mEq/L Carbon Dioxide (21-32) mEq/L Anion Gap (5-15) BUN (7-18) mg/dL Creatinine (0.7-1.3) mg/dL Est Cr Clr Drug Dosing mL/min Estimated GFR (MDRD) (>60) mL/min BUN/Creatinine Ratio (14-18) Glucose (80-115) mg/dL Calcium (8.5-10.1) mg/dL Phosphorus 4.6 (2.6-4.7) mg/dL Magnesium 2.4 (1.8-2.4) mg/dl Ferritin (26-388) ng/ml Total Bilirubin (0.2-1.0) mg/dL AST (15-37) U/L ALT (16-63) U/L Alkaline Phosphatase (46-116) U/L Ammonia (11-32) umol/L Lactate Dehydrogenase (85-227) U/L C-Reactive Protein (<1.0) mg/dL NT-Pro-B Natriuret Pep (0-125) pg/mL Total Protein (6.4-8.2) g/dl Albumin (3.4-5.0) g/dl Globulin gm/dL Albumin/Globulin Ratio (1-2) Procalcitonin (<0.10) ng/mL Mycoplasma pneumon IgM (NEGATIVE) SARS-CoV-2 RNA (ARTEMIO) (NEGATIVE) Luis Results Last 24 Hours: Microbiology 07/12/20 17:18 Aerobic Blood Culture - Preliminary Blood - Venous - Lab Draw NO GROWTH AFTER 6 DAYS Anaerobic Blood Culture - Final 07/12/20 16:41 Aerobic Blood Culture - Preliminary Blood - Venous NO GROWTH AFTER 6 DAYS Anaerobic Blood Culture - Preliminary NO GROWTH AFTER 6 DAYS 07/17/20 09:22 Gram Stain - Final Leg, Right Anaerobic Culture - Preliminary NO GROWTH AFTER 1 DAY Med Orders - Current: Current Medications Acetaminophen (Tylenol) 650 mg PO Q4H PRN PRN Reason: Pain/Fever Last Admin: 07/14/20 21:35 Dose: 650 mg Documented by: Dexamethasone (Dexamethasone) 6 mg PO Q24H [facility] Stop: 07/27/20 16:01 Last Admin: 07/18/20 16:39 Dose: 6 mg Documented by: Folic Acid (Folic Acid) 1 mg PO DAILY [facility] Last Admin: 07/18/20 12:09 Dose: 1 mg Documented by: Furosemide (Lasix) 40 mg IVPUSH DAILY [facility] Last Admin: 07/18/20 12:10 Dose: 40 mg Documented by: Vancomycin HCl 1 gm/ Sodium (Chloride) 250 mls @ 250 mls/hr IV Q24H [facility] Last Admin: 07/18/20 20:51 Dose: 250 mls/hr Documented by: Ceftriaxone Sodium 2 gm/ (Sodium Chloride) 100 mls @ 200 mls/hr IV Q24H [facility] Last Admin: 07/18/20 15:41 Dose: 200 mls/hr Documented by: Azithromycin 500 mg/ Sodium (Chloride) 250 mls @ 250 mls/hr IV Q24H [facility] Last Admin: 07/18/20 16:39 Dose: 250 mls/hr Documented by: Remdesivir 100 mg/ Sodium (Chloride) 100 mls @ 100 mls/hr IV Q24H [facility] Stop: 07/22/20 17:29 Lactulose (Cephulac) 30 gm PO TID [facility] Last Admin: 07/18/20 20:56 Dose: 30 gm Documented by: Magnesium Oxide (Magnesium Oxide) 400 mg PO BID [facility] Last Admin: 07/18/20 20:57 Dose: 400 mg Documented by: Melatonin (Melatonin) 3 mg PO BEDTIME PRN PRN Reason: insomnia Midodrine (Midodrine) 5 mg PO TIDAC [facility] Last Admin: 07/19/20 06:05 Dose: 5 mg Documented by: Miscellaneous Information (Remove Patch) 0 ea TRDERM Q24H [facility] Last Admin: 07/18/20 16:10 Dose: 1 ea Documented by: Multivitamins (Thera) 1 each PO DAILY [facility] Last Admin: 07/18/20 12:10 Dose: 1 each Documented by: Nicotine (Habitrol) 14 mg TRDERM Q24H [facility] Last Admin: 07/18/20 15:51 Dose: 14 mg Documented by: Ondansetron HCl (Zofran) 4 mg IV Q6H PRN PRN Reason: Nausea/Vomiting Oxycodone HCl (Oxycodone) 5 mg PO Q6H PRN PRN Reason: Pain (moderate 4-6) Oxycodone HCl (Oxycodone) 10 mg PO Q6H PRN PRN Reason: Pain (severe 7-10) Last Admin: 07/18/20 06:18 Dose: 10 mg Documented by: Spironolactone (Aldactone) 100 mg PO DAILY [facility] Last Admin: 07/18/20 12:10 Dose: 100 mg Documented by: Thiamine HCl (Vitamin B-1) 100 mg PO DAILY [facility] Last Admin: 07/18/20 12:10 Dose: 100 mg Documented by: Vancomycin HCl (Pharmacy To Dose - Vancomycin) 1 dose .XX ASDIRECTED [facility] Discontinued Medications Alprazolam (Xanax) 1 mg PO BEDTIME ONE Stop: 07/12/20 21:01 Last Admin: 07/12/20 21:24 Dose: 1 mg Documented by: Alprazolam (Xanax) 1 mg PO BEDTIME [facility] Folic Acid (Folic Acid) 1 mg PO DAILY [facility] Furosemide (Lasix) 40 mg IVPUSH NOW ONE Stop: 07/12/20 19:17 Last Admin: 07/12/20 19:38 Dose: 40 mg Documented by: Furosemide (Lasix) 40 mg IVPUSH NOW ONE Stop: 07/13/20 09:15 Last Admin: 07/13/20 09:42 Dose: 40 mg Documented by: Furosemide (Lasix) 40 mg IVPUSH DAILY [facility] Furosemide (Lasix) 20 mg IVPUSH DAILY [facility] Last Admin: 07/14/20 10:10 Dose: 20 mg Documented by: Sodium Chloride (Normal Saline) 1,000 mls @ 125 mls/hr IV ASDIRECTED [facility] Last Admin: 07/12/20 17:03 Dose: 125 mls/hr Documented by: Vancomycin HCl 1.5 gm/ Sodium (Chloride) 500 mls @ 250 mls/hr IV ONETIME ONE Stop: 07/12/20 19:21 Last Admin: 07/12/20 20:07 Dose: 250 mls/hr Documented by: Vancomycin HCl 1 gm/ Sodium (Chloride) 250 mls @ 250 mls/hr IV Q12H [facility] Last Admin: 07/14/20 23:00 Dose: 250 mls/hr Documented by: Ceftriaxone Sodium 2 gm/ (Sodium Chloride) 100 mls @ 200 mls/hr IV Q24H [facility] Last Admin: 07/14/20 14:38 Dose: 200 mls/hr Documented by: Sodium Chloride (Normal Saline) 1,000 mls @ 100 mls/hr IV ASDIRECTED [facility] Stop: 07/15/20 00:59 Last Admin: 07/14/20 00:04 Dose: 100 mls/hr Documented by: Sodium Chloride (Normal Saline) 100 mls @ 75 mls/hr IV ASDIRECTED [facility] Stop: 07/18/20 17:00 Remdesivir 200 mg/ Sodium (Chloride) 250 mls @ 250 mls/hr IV ONETIME ONE Stop: 07/18/20 17:29 Last Admin: 07/18/20 17:55 Dose: 250 mls/hr Documented by: Iopamidol (Isovue-370 (76%)) 100 ml IVPUSH ONETIME ONE Stop: 07/18/20 13:38 Last Admin: 07/18/20 16:43 Dose: Not Given Documented by: Lactulose (Cephulac) 20 gm PO TID [facility] Last Admin: 07/13/20 15:46 Dose: Not Given Documented by: Lactulose (Cephulac) 20 gm PO TID [facility] Last Admin: 07/15/20 10:21 Dose: 20 gm Documented by: Non-Formulary Medication (Magnesium Oxide [Magnesium Oxide]) 400 mg PO DAILY [facility] Oxycodone HCl (Oxycodone) 5 - 10 mg PO Q6H PRN PRN Reason: Pain Potassium Chloride (Klor-Con M20) 40 meq PO TID [facility] Stop: 07/14/20 09:01 Last Admin: 07/14/20 10:09 Dose: 40 meq Documented by: Sodium Chloride (Saline Flush) 10 ml FLUSH ONETIME PRN PRN Reason: IV FLUSH Stop: 07/18/20 17:00 Spironolactone (Aldactone) 25 mg PO ONETIME ONE Stop: 07/12/20 19:18 Last Admin: 07/12/20 19:38 Dose: 25 mg Documented by: Spironolactone (Aldactone) 25 mg PO ONETIME ONE Stop: 07/13/20 09:16 Last Admin: 07/13/20 09:50 Dose: 25 mg Documented by: Spironolactone (Aldactone) 25 mg PO DAILY [facility] Spironolactone (Aldactone) 50 mg PO DAILY [facility] Last Admin: 07/15/20 10:20 Dose: 50 mg Documented by: Thiamine HCl (Vitamin B-1) 100 mg PO DAILY [facility] Vancomycin HCl (Vancocin) Confirm Administered Dose 1 gm .ROUTE .STK-MED ONE Stop: 07/17/20 21:34 Last Admin: 07/17/20 23:07 Dose: Not Given Documented by: Venlafaxine HCl (Effexor) 37.5 mg PO BID MELISSA - Exam Quality Assessment: Supplemental Oxygen (High Flow). No: Urine Catheter, DVT Prophylaxis General: Alert, Cooperative, No Acute Distress. No: Oriented HEENT: Pupils Equal, Pupils Reactive, Mucous Membr. Moist/[place] Neck: Supple, Trachea Midline Lungs: Normal Respiratory Effort, Decreased Breath Sounds Cardiovascular: Regular Rate, Regular Rhythm GI/Abdominal Exam: Normal Bowel Sounds, Soft, Non-Tender, No Distention (Male) Exam: Deferred Back Exam: Normal Inspection, Full Range of Motion Extremities: Pedal Edema, Leg Pain, Increased Warmth (improving ), Redness (improving ) Skin: Warm, Dry, Intact Neurological: No New Focal Deficit Psy/Mental Status: Alert, Normal Affect, Normal Mood Sepsis Event Note - Evaluation Sepsis Screening Result: No Definite Risk - Focused Exam Vital Signs: Vital Signs Temp Pulse Resp BP Pulse Ox Pulse Ox 07/19/20 05:06 98.6 F 85 16 100/61 90 L 07/19/20 00:40 98.1 F 81 20 97/53 L 88 L 07/18/20 21:03 97.9 F 87 24 H 92/54 L 100 07/18/20 21:00 96 - Problem List & Annotations (1) Tobacco use disorder SNOMED Code(s): 395523422 Code(s): F17.200 - NICOTINE DEPENDENCE, UNSPECIFIED, UNCOMPLICATED Status: Chronic Priority: Medium Current Visit: No (2) History of alcohol abuse SNOMED Code(s): 067188104 Code(s): F10.11 - ALCOHOL ABUSE, IN REMISSION Status: Chronic Priority: Medium Current Visit: No (3) Esophageal varices without bleeding SNOMED Code(s): 58934350 Code(s): I85.00 - ESOPHAGEAL VARICES WITHOUT BLEEDING Status: Chronic Priority: Medium Current Visit: No Qualifiers: Esophageal varices type: unspecified type Qualified Code(s): I85.00 - Esophageal varices without bleeding (4) Failure to thrive SNOMED Code(s): 49014862 Code(s): RZA0399 - Status: Acute Priority: High Current Visit: Yes Qualifiers: Failure to thrive age range: in adult Qualified Code(s): R62.7 - Adult failure to thrive (5) Difficulty walking SNOMED Code(s): 380379986 Code(s): R26.2 - DIFFICULTY IN WALKING, NOT ELSEWHERE CLASSIFIED Status: Acute Priority: High Current Visit: Yes (6) Medical non-compliance SNOMED Code(s): 464018128 Code(s): Z91.19 - PATIENT'S NONCOMPLIANCE [facility] Status: Chronic Priority: High Current Visit: Yes (7) Serum ammonia increased SNOMED Code(s): 9219169 Code(s): E72.20 - DISORDER OF UREA CYCLE METABOLISM, UNSPECIFIED Status: Chronic Priority: High Current Visit: Yes (8) Anemia SNOMED Code(s): 138232434 Code(s): D64.9 - ANEMIA, UNSPECIFIED Status: Chronic Current Visit: Yes Qualifiers: Anemia type: bone marrow failure Bone marrow failure anemia type: unspecified bone marrow failure Qualified Code(s): D61.9 - Aplastic anemia, unspecified (9) Bilateral lower leg cellulitis SNOMED Code(s): 488773837 Code(s): L03.116 - CELLULITIS OF LEFT LOWER LIMB; L03.115 - CELLULITIS OF RIGHT LOWER LIMB Status: Acute Priority: High Current Visit: Yes (10) Cirrhosis of liver SNOMED Code(s): 57099492 Code(s): K74.60 - UNSPECIFIED CIRRHOSIS OF LIVER Status: Chronic Priority: High Current Visit: Yes Qualifiers: Hepatic cirrhosis type: alcoholic cirrhosis Ascites presence: with ascites Qualified Code(s): K70.31 - Alcoholic cirrhosis of liver with ascites (11) Dependent edema SNOMED Code(s): 450855061 Code(s): R60.9 - EDEMA, UNSPECIFIED Status: Acute Priority: High Current Visit: Yes (12) Elevated INR SNOMED Code(s): 194452166 Code(s): R79.1 - ABNORMAL COAGULATION PROFILE Status: Chronic Priority: Medium Current Visit: Yes (13) Hypokalemia SNOMED Code(s): 06532766 Code(s): E87.6 - HYPOKALEMIA Status: Resolved Priority: High Current Visit: Yes (14) Hyponatremia SNOMED Code(s): 86329005 Code(s): E87.1 - HYPO-OSMOLALITY AND HYPONATREMIA Status: Acute Priority: High Current Visit: Yes (15) Thrombocytopenia SNOMED Code(s): 890428774 Code(s): D69.6 - THROMBOCYTOPENIA, UNSPECIFIED Status: Chronic Priority: High Current Visit: Yes (16) Depression SNOMED Code(s): 99863940 Code(s): F32.9 - MAJOR DEPRESSIVE DISORDER, SINGLE EPISODE, UNSPECIFIED S tatus: Chronic Priority: Medium Current Visit: Yes Qualifiers: Depression Type: other depression Qualified Code(s): F32.89 - Other specified depressive episodes (17) Hepatic encephalopathy SNOMED Code(s): 58610520 Code(s): K72.90 - HEPATIC FAILURE, UNSPECIFIED WITHOUT COMA Status: Chronic Priority: High Current Visit: Yes (18) Lactic acidosis SNOMED Code(s): 85506853 Code(s): E87.2 - ACIDOSIS Status: Acute Priority: High Current Visit: Yes (19) Hypoxia SNOMED Code(s): 045682926 Code(s): R09.02 - HYPOXEMIA Status: Acute Priority: High Current Visit: Yes (20) Elevated d-dimer SNOMED Code(s): 230379446 Code(s): R79.89 - OTHER SPECIFIED ABNORMAL FINDINGS OF BLOOD CHEMISTRY Status: Acute Priority: High Current Visit: Yes (21) Respiratory failure SNOMED Code(s): 104483349 Code(s): J96.90 - RESPIRATORY FAILURE, UNSP, UNSP W HYPOXIA OR HYPERCAPNIA Status: Acute Priority: High Current Visit: Yes Qualifiers: Chronicity: acute Respiratory failure complication: hypoxia Qualified Code(s): J96.01 - Acute respiratory failure with hypoxia (22) Suspected COVID-19 virus infection SNOMED Code(s): 917337876 Code(s): Z20.828 - CONTACT W AND EXPOSURE TO OTH VIRAL COMMUNICABLE DISEASES Status: Acute Priority: High Current Visit: Yes (23) S/P thoracentesis SNOMED Code(s): 103902466, 49365215, 936510906 Code(s): Z98.890 - OTHER SPECIFIED POSTPROCEDURAL STATES Status: Acute Priority: High Current Visit: Yes - Problem List Review Problem List Initiated/Reviewed/Updated: Yes - My Orders Last 24 Hours: My Active Orders 07/18/20 10:00 CULTURE MRSA [RM] Routine 07/18/20 10:57 Oxygen Therapy Adult [Oxygen Therapy] [RC] ASDIRECTED 07/18/20 14:21 Isolation [COMM] Routine 07/18/20 14:23 Patient Status [ADT] Routine 07/18/20 14:50 RESPIRATORY PANEL Routine 07/18/20 15:31 STREP PNEUMONIAE ANTIGEN [MREF] Routine 07/18/20 15:54 Pulse Oximetry Continuous Monitoring [OM.PC] Routine 07/18/20 16:00 Azithromycin [Zithromax] 500 mg Sodium Chloride 0.9% [Normal Saline (AdvBag)] 250 ml IV Q24H dexAMETHasone 6 mg PO Q24H 07/19/20 16:30 Remdesivir 100 mg Sodium Chloride 0.9% [Normal Saline] 100 ml IV Q24H 07/20/20 05:11 CBC WITH AUTO DIFF [HEME] AM MAGNESIUM [CHEM] AM 07/20/20 15:58 DD [D-DIMER QUANTITATIVE] [COAG] Q48H 07/21/20 05:11 CBC WITH AUTO DIFF [HEME] AM MAGNESIUM [CHEM] AM 07/22/20 05:11 CBC WITH AUTO DIFF [HEME] AM MAGNESIUM [CHEM] AM 07/22/20 15:58 DD [D-DIMER QUANTITATIVE] [COAG] Q48H 07/24/20 15:58 DD [D-DIMER QUANTITATIVE] [COAG] Q48H - Assessment Assessment:: 07/13/2020 - Day of Admission -64 yo Male who presents to ED on 07/12/20 with confusion and bilateral cellulitis -History of hepatic encephalopathy, End stage liver disease, ETOH abuse, Tobacco use, Esophageal varices with banding, depression, dependant edema -Patient admits to ED provider that he has not been taking his medications because he forgets -Denies any ETOH use for past 2 months (ETOH in ED was 0.00) -Kept in ED overnight due to bed shortage statewide and us being on diversion -Started on Vancomycin in ED foe cellulitis -Given lactulose, spironolactone, lasix, IV fluids, Xanax, vancomycin in ED -No WBC in ED, although likely cannot mount immunologic defense due to alcoholic bone marrow suppression -Sepsis criteria: -Bilateral cellulitis, No tachycardia, tachypnea, WBC, or fever -Hypotension likely 2/2 end stage liver failure, Lactate >2 likely 2/2 chronic ETOH abuse, Bilirubin >2 chronically, Platelets <100 chronically, INR elevated 2/2 End stage liver disease -Does not meet criteria -Per ED provider social work states patient apartment was very unkempt -Social work reports patient has been known to leave water running and burners on in apartment. Patient is being evicted. 07/14/2020 * Small improvement in cellulitis * Procalcitonin was negative at 0.05 * White count 6.1 and CRP 2.1 * Lactic acid is chronically elevated due to liver disease at 2.6. Total bilirubin elevated at 7.8 and direct bilirubin 3.8 * Oxygen requirement has increased to 4 L/min * Sodium chronically low at 131 07/15/2020 * Continued improvement in cellulitis * WBC remains WNL at 7.19 with CRP of 2.2 * Oxygen requirement has decreased to 2L * Blood cultures negative thus far * Sodium improved to 133 * Potassium 4.3 * Dr. Powell saw patient and recommends withholding patients effexor and monitoring * Patient remains quite confused 07/16/20 * Continue current treatment * Routine AM labs with Ammonia * Midodrine 5 mg po TIDAC * Remains confused with hallucinations (seeing squirrels inside his room) * May consider anti-psychotic medications if needed * Need Tele-psych consult 07/17/20 * Continue current treatment: Rocephin and Vancomycin * Routine AM labs * Offered ID but patient refused * Wound culture on right ramos * Remains confused with hallucinations (seeing squirrels inside his room) * May consider anti-psychotic medications if needed * Need Tele-psych follow up * LOS > 96 HRS due to need for placement 07/18/20 * WBC improved to 10.41 from 11.68 * CRP 9.1 from 5.7 * Creatinine 1.4 with GFR of 51 * Requiring 6L O2 via NC * Wound culture showing no growth * MELD-Na score on admission calculated to be 29 points - 27-32% estimated 90- day mortality * D-Dimer 7.29 * BNP 1009 * INR 2.33 * CTA shows pleural effusions and ground glass opacities concerning for viral/atypical pneumonia\ * Discussed plan with Dr. Castro - will start covid-19 treatment protocol 07/19/2020 * WBC 8.31 * CRP Up to 11.4 * Ferritin 513 * LDH 475 * Procalcitonin 0.43 * Creatinine 1.5, GFR 47 * INR 2.24 * On high flow oxygen * Thoracentesis performed today by Dr. Shipley with just over 1L clear straw colored output - Plan Plan:: Bilateral cellulitis/Stasis Dermatitis, improving Dependant edema Small hematoma/abscess on right ramos Leukocytosis Hypoxemia Elevated D-dimer Respiratory failure Suspected COVID-19 infection S/P Thoracentesis -Monitor CBC, CMP, CRP daily, D-Dimer Q48h -Continued vancomycin with pharmacy to dose -Continue Rocephin Q24hr -Monitor leg inflammation -On IV Lasix to 40 mg daily -O2 as needed -Wound culture for on right ramos shows no growth -Obtain Echo today -MRSA screen - if negative consider stopping vancomycin -Start azithromycin to cover atypical pneumonia -RVP pending -RT unable to obtain ABG after several attempts -Continue telemetry -Discussed with Dr. Castro - will start COVID-19 treatment protocol -Remdesivir - day 08/23 -Dexamethasone day 1/10 -Contact/airborne precautions -Will hold off convalescent plasma due to concerns over fluid status Failure to thrive Hypokalemia, resolved Hyponatremia, stable Lactic Acidosis, likely resolved Medical non-compliance Hx/o hypomagnesemia Hypoalbuminemia, unchanged Relative Hypotension -Consult CM/SW -Will likely need placement at discharge -Senior Ux Developer consult -Monitor electrolytes/magnesium -Supplement electrolytes as needed -On Midodrine 5 mg po TID History of ETOH abuse Hepatic encephalopathy End-stage ETOH related cirrhosis Elevated INR Elevated Bilirubin Hx/o esophageal varices Thrombocytopenia Macrocytic Normochromic Anemia Elevated serum ammonia Hyperlactatemia Hallucinations -Continue Lactulose 30mg TID and Lasix 40 mg po daily -Continue spironolactone 50mg daily -Pharmacological DVT prophylaxis contraindicated -Monitor CBC -Continue folic acid, MV, thiamine supplementation -Low protein diet -Consult user experience manager -Due to end-stage cirrhosis we can expect BPs on the lower side -hyperlactatemia is likely 2/2 to end-stage liver disease and chronic ETOH abuse. Procalcitonin was 0.05 ruling out sepsis. -Routine AM labs with Ammonia Depression -Dr. Powell consult - recommends monitoring -Discontinue Effexor Tobacco use disorder -Cessation counseling at discharge -Nicotine patches Code status: DNR/DNI PCP: Dr. Mccollum DVT prophylaxis: Pharmacological prophylaxis contraindicated due to significant esophageal varices history, Elevated INR, thrombocytopenia. Mechanical prophylaxis contraindicated due to bilateral LE cellulitis, dependant LE edema. Disposition: Patient admitted due to cellulitis, electrolyte abnormalities, failure to thrive and need for placement. Social: Patient reportedly lives in an apartment. [facility] Warehousing Technician is following patient. Patient has history of leaving water running and forgetting to turn of burner. Per ED note apartment is very unkempt and there are concerns for patient safety. SW/CM consulted. Prognosis: Overall poor prognosis due to end-stage ETOH cirrhosis. LOS >96 HRS due to need for placement and continued work-up for respiratory failure.
[2020-07-19] MEDS: Lactulose Soln 10 GM/15 ML 30 ML UD Cup PO SCH ×3 (10:25→20:59)
[2020-07-19] MEDS: Furosemide 40 MG/4 ML VIAL IVPUSH SCH (10:25)
[2020-07-19] MEDS: Thiamine 100 MG Tab PO SCH (10:26)
[2020-07-19] MEDS: Magnesium Oxide 400 MG Tab PO SCH ×2 (10:26→20:59)
[2020-07-19] MEDS: Multivitamins,Therapeutic Tab PO SCH (10:26)
[2020-07-19] MEDS: Folic Acid 1 MG Tab PO SCH (10:26)
[2020-07-19] MEDS: Spironolactone 100 MG Tab PO SCH (10:26)
--- NOTE | 2020-07-19 12:28 | PCM.CONS ---
H&P History of Present Illness - General Date of Service: 07/19/20 Admit Problem/Dx: Admission Diagnosis/Problem Admission Diagnosis/Problem Cellulitis Source of Information: Provider History Limitations: Reports: Altered Mental Status - History of Present Illness Initial Comments - Free Text/Narative: Patient has cirrhosis and was admitted for altered mental status. During his hospital stay he developed increasing oxygen requirements from room now to 7L high flow. CT chest shows ground glass appearance and large pleural effusion on the left as well as moderate ascites. I was asked to evaluate the patient for thoracentesis. His INR is 2.3 due to liver dysfunction. His MELD score is 29 today. Onset of Symptoms: Reports: Gradual Duration of Symptoms: Reports: Getting Worse Location: Reports: Chest Quality: Reports: Other (oxygen requirements) Improves with: Reports: None Worsens with: Reports: Other Context: Reports: Other Associated Symptoms: Reports: Shortness of Breath - Related Data Allergies/Adverse Reactions: Allergies Allergy/AdvReac Type Severity Reaction Status Date / Time No Known Allergies Allergy Verified 07/13/20 12:29 Home Medications: Home Meds Folic Acid 1 mg PO DAILY 07/13/20 [History] Furosemide [Lasix] 40 mg PO DAILY 07/13/20 [History] Lactulose 30 ml PO TID 07/13/20 [History] Magnesium Oxide 400 mg PO DAILY 07/13/20 [History] Meclizine [Antivert] 25 mg PO Q4HR PRN 07/13/20 [History] Melatonin 3 mg PO BEDTIME PRN 07/13/20 [History] Multivitamin 1 tab PO DAILY 07/13/20 [History] Spironolactone 50 mg PO DAILY 07/13/20 [History] Thiamine [Vitamin B-1] 100 mg PO DAILY 07/13/20 [History] Venlafaxine [Effexor] 37.5 mg PO BID 07/13/20 [History] oxyCODONE 5 - 10 mg PO Q6H PRN 07/13/20 [History] Past Medical History HEENT History: Reports: Impaired Vision Other HEENT History: wears eyeglasses Cardiovascular History: Reports: Hypertension Other Cardiovascular History: states BP always elevated but not formally Dx'd. Respiratory History: Reports: Other (See Below) Other Respiratory History: coughing up blood daily, pt self-diagnosing with lung cancer. Gastrointestinal History: Reports: Cirrhosis, Diverticulosis, Other (See Below) Other Gastrointestinal History: esophageal varices, ascites Musculoskeletal History: Reports: Back Pain, Chronic, Other (See Below) Other Musculoskeletal History: states has "pinched nerve" to L4. Neurological History: Reports: Concussion, Other (See Below) (hepatic encephalopathy.) Psychiatric History: Reports: Addiction, Anxiety, Depression Endocrine/Metabolic History: Reports: Obesity/BMI 30+ - Past Surgical History HEENT Surgical History: Reports: Tonsillectomy GI Surgical History: Reports: Appendectomy, Colonoscopy, EGD, Hernia, Inguinal, Other (See Below) Other GI Surgeries/Procedures: colon surgery Endocrine Surgical History: Reports: None Musculoskeletal Surgical History: Reports: Other (See Below) Other Musculoskeletal Surgeries/Procedures:: cervical fusion; bunionctomy Dermatological Surgical History: Reports: Skin Graft, Other (See Below) Social & Family History - Family History Family Medical History: No Pertinent Family History - Tobacco Use Tobacco Use Status *Q: Current Some Day Tobacco User Years of Tobacco use: 11 Packs/Tins Daily: 0.5 Used Tobacco, but Quit: No - Caffeine Use Caffeine Use: Reports: None - Recreational Drug Use Recreational Drug Use: Yes Recreational Drug Type: Reports: Marijuana/Hashish - Living Situation & Occupation Living situation: Reports: Alone Occupation: Unemployed H&P Review of Systems - Review of Systems: Review Of Systems: See Below General: Reports: No Symptoms HEENT: Reports: No Symptoms Pulmonary: Reports: Shortness of Breath Cardiovascular: Reports: No Symptoms Gastrointestinal: Reports: No Symptoms Genitourinary: Reports: No Symptoms Musculoskeletal: Reports: No Symptoms Neurological: Reports: Confusion Exam - Exam Exam: See Below - Vital Signs Vital Signs: Last Vital Signs Temp 98.2 F 07/19/20 07:38 Pulse 80 07/19/20 07:38 Resp 18 07/19/20 07:38 BP 102/50 L 07/19/20 07:38 Pulse Ox 95 07/19/20 10:00 Weight: 87.317 kg - Exam General: Alert, Cooperative Lungs: Decreased Breath Sounds (bibasilar), Other (pleural effusion present by US on the right) Cardiovascular: Regular Rate, Regular Rhythm, Normal S1, Normal S2 GI/Abdominal Exam: Soft, Non-Tender, No Organomegaly, Distended (slightly), Other (ascites present by US) - Patient Data Lab Results Last 24 hrs: Laboratory Results - last 24 hr 07/18/20 07/18/20 07/18/20 Range/Units 06:25 06:25 06:25 WBC (4.23-9.07) K/mm3 RBC (4.63-6.08) M/mm3 Hgb (13.7-17.5) gm/dl Hct (40.1-51.0) % MCV (79.0-92.2) fl MCH (25.7-32.2) pg MCHC (32.2-35.5) g/dl RDW Std Deviation (35.1-43.9) fL Plt Count (163-337) K/mm3 MPV (9.4-12.3) fl Neut % (Auto) (34.0-67.9) % Lymph % (Auto) (21.8-53.1) % [place] % (Auto) (5.3-12.2) % Eos % (Auto) (0.8-7.0) Baso % (Auto) (0.1-1.2) % Neut # (Auto) (1.78-5.38) K/mm3 Lymph # (Auto) (1.32-3.57) K/mm3 [place] # (Auto) (0.30-0.82) K/mm3 Eos # (Auto) (0.04-0.54) K/mm3 Baso # (Auto) (0.01-0.08) K/mm3 Manual Slide Review PT (9.7-12.0) SECONDS INR D-Dimer, Quantitative (0.19-0.50) mg/L Sodium (136-145) mEq/L Potassium (3.5-5.1) mEq/L Chloride (98-107) mEq/L Carbon Dioxide (21-32) mEq/L Anion Gap (5-15) BUN (7-18) mg/dL Creatinine (0.7-1.3) mg/dL Est Cr Clr Drug Dosing mL/min Estimated GFR (MDRD) (>60) mL/min BUN/Creatinine Ratio (14-18) Glucose (80-115) mg/dL Calcium (8.5-10.1) mg/dL Phosphorus (2.6-4.7) mg/dL Magnesium (1.8-2.4) mg/dl Ferritin 513 H (26-388) ng/ml Total Bilirubin (0.2-1.0) mg/dL AST (15-37) U/L ALT (16-63) U/L Alkaline Phosphatase (46-116) U/L Lactate Dehydrogenase 475 H (85-227) U/L C-Reactive Protein (<1.0) mg/dL NT-Pro-B Natriuret Pep (0-125) pg/mL Total Protein (6.4-8.2) g/dl Albumin (3.4-5.0) g/dl Globulin gm/dL Albumin/Globulin Ratio (1-2) Procalcitonin 0.43 H (<0.10) ng/mL Mycoplasma pneumon IgM (NEGATIVE) SARS-CoV-2 RNA (ARTEMIO) (NEGATIVE) 07/18/20 07/18/20 07/18/20 Range/Units 06:25 06:25 12:34 WBC (4.23-9.07) K/mm3 RBC (4.63-6.08) M/mm3 Hgb (13.7-17.5) gm/dl Hct (40.1-51.0) % MCV (79.0-92.2) fl MCH (25.7-32.2) pg MCHC (32.2-35.5) g/dl RDW Std Deviation (35.1-43.9) fL Plt Count (163-337) K/mm3 MPV (9.4-12.3) fl Neut % (Auto) (34.0-67.9) % Lymph % (Auto) (21.8-53.1) % [place] % (Auto) (5.3-12.2) % Eos % (Auto) (0.8-7.0) Baso % (Auto) (0.1-1.2) % Neut # (Auto) (1.78-5.38) K/mm3 Lymph # (Auto) (1.32-3.57) K/mm3 [place] # (Auto) (0.30-0.82) K/mm3 Eos # (Auto) (0.04-0.54) K/mm3 Baso # (Auto) (0.01-0.08) K/mm3 Manual Slide Review PT 24.5 H (9.7-12.0) SECONDS INR 2.33 D-Dimer, Quantitative (0.19-0.50) mg/L Sodium (136-145) mEq/L Potassium (3.5-5.1) mEq/L Chloride (98-107) mEq/L Carbon Dioxide (21-32) mEq/L Anion Gap (5-15) BUN (7-18) mg/dL Creatinine (0.7-1.3) mg/dL Est Cr Clr Drug Dosing mL/min Estimated GFR (MDRD) (>60) mL/min BUN/Creatinine Ratio (14-18) Glucose (80-115) mg/dL Calcium (8.5-10.1) mg/dL Phosphorus (2.6-4.7) mg/dL Magnesium (1.8-2.4) mg/dl Ferritin (26-388) ng/ml Total Bilirubin (0.2-1.0) mg/dL AST (15-37) U/L ALT (16-63) U/L Alkaline Phosphatase (46-116) U/L Lactate Dehydrogenase (85-227) U/L C-Reactive Protein (<1.0) mg/dL NT-Pro-B Natriuret Pep 1009 H (0-125) pg/mL Total Protein (6.4-8.2) g/dl Albumin (3.4-5.0) g/dl Globulin gm/dL Albumin/Globulin Ratio (1-2) Procalcitonin (<0.10) ng/mL Mycoplasma pneumon IgM Negative (NEGATIVE) SARS-CoV-2 RNA (ARTEMIO) (NEGATIVE) 07/18/20 07/18/20 07/19/20 Range/Units 12:40 14:50 04:47 WBC (4.23-9.07) K/mm3 RBC (4.63-6.08) M/mm3 Hgb (13.7-17.5) gm/dl Hct (40.1-51.0) % MCV (79.0-92.2) fl MCH (25.7-32.2) pg MCHC (32.2-35.5) g/dl RDW Std Deviation (35.1-43.9) fL Plt Count (163-337) K/mm3 MPV (9.4-12.3) fl Neut % (Auto) (34.0-67.9) % Lymph % (Auto) (21.8-53.1) % [place] % (Auto) (5.3-12.2) % Eos % (Auto) (0.8-7.0) Baso % (Auto) (0.1-1.2) % Neut # (Auto) (1.78-5.38) K/mm3 Lymph # (Auto) (1.32-3.57) K/mm3 [place] # (Auto) (0.30-0.82) K/mm3 Eos # (Auto) (0.04-0.54) K/mm3 Baso # (Auto) (0.01-0.08) K/mm3 Manual Slide Review PT (9.7-12.0) SECONDS INR D-Dimer, Quantitative 7.29 H (0.19-0.50) mg/L Sodium 131 L (136-145) mEq/L Potassium 4.4 (3.5-5.1) mEq/L Chloride 98 (98-107) mEq/L Carbon Dioxide 22 (21-32) mEq/L Anion Gap 15.4 H (5-15) BUN 29 H (7-18) mg/dL Creatinine 1.5 H (0.7-1.3) mg/dL Est Cr Clr Drug Dosing 47.68 mL/min Estimated GFR (MDRD) 47 (>60) mL/min BUN/Creatinine Ratio 19.3 H (14-18) Glucose 122 H (80-115) mg/dL Calcium 8.4 L (8.5-10.1) mg/dL Phosphorus (2.6-4.7) mg/dL Magnesium (1.8-2.4) mg/dl Ferritin (26-388) ng/ml Total Bilirubin 6.5 H (0.2-1.0) mg/dL AST 59 H (15-37) U/L ALT 46 (16-63) U/L Alkaline Phosphatase 77 (46-116) U/L Lactate Dehydrogenase (85-227) U/L C-Reactive Protein 11.4 H* (<1.0) mg/dL NT-Pro-B Natriuret Pep (0-125) pg/mL Total Protein 5.9 L (6.4-8.2) g/dl Albumin 1.9 L (3.4-5.0) g/dl Globulin 4.0 gm/dL Albumin/Globulin Ratio 0.5 L (1-2) Procalcitonin (<0.10) ng/mL Mycoplasma pneumon IgM (NEGATIVE) SARS-CoV-2 RNA (ARTEMIO) Negative (NEGATIVE) 07/19/20 07/19/20 07/19/20 Range/Units 04:47 04:47 04:47 WBC 8.31 (4.23-9.07) K/mm3 RBC 2.71 L (4.63-6.08) M/mm3 Hgb 9.1 L (13.7-17.5) gm/dl Hct 27.1 L (40.1-51.0) % MCV 100.0 H (79.0-92.2) fl MCH 33.6 H (25.7-32.2) pg MCHC 33.6 (32.2-35.5) g/dl RDW Std Deviation 69.8 H (35.1-43.9) fL Plt Count 60 L (163-337) K/mm3 MPV 9.8 (9.4-12.3) fl Neut % (Auto) 86.6 H (34.0-67.9) % Lymph % (Auto) 8.1 L (21.8-53.1) % [place] % (Auto) 4.8 L (5.3-12.2) % Eos % (Auto) 0 L (0.8-7.0) Baso % (Auto) 0.1 (0.1-1.2) % Neut # (Auto) 7.20 H (1.78-5.38) K/mm3 Lymph # (Auto) 0.67 L (1.32-3.57) K/mm3 [place] # (Auto) 0.40 (0.30-0.82) K/mm3 Eos # (Auto) 0.00 L (0.04-0.54) K/mm3 Baso # (Auto) 0.01 (0.01-0.08) K/mm3 Manual Slide Review Abnormal smear PT 23.6 H (9.7-12.0) SECONDS INR 2.24 D-Dimer, Quantitative (0.19-0.50) mg/L Sodium (136-145) mEq/L Potassium (3.5-5.1) mEq/L Chloride (98-107) mEq/L Carbon Dioxide (21-32) mEq/L Anion Gap (5-15) BUN (7-18) mg/dL Creatinine (0.7-1.3) mg/dL Est Cr Clr Drug Dosing mL/min Estimated GFR (MDRD) (>60) mL/min BUN/Creatinine Ratio (14-18) Glucose (80-115) mg/dL Calcium (8.5-10.1) mg/dL Phosphorus 4.6 (2.6-4.7) mg/dL Magnesium 2.4 (1.8-2.4) mg/dl Ferritin (26-388) ng/ml Total Bilirubin (0.2-1.0) mg/dL AST (15-37) U/L ALT (16-63) U/L Alkaline Phosphatase (46-116) U/L Lactate Dehydrogenase (85-227) U/L C-Reactive Protein (<1.0) mg/dL NT-Pro-B Natriuret Pep (0-125) pg/mL Total Protein (6.4-8.2) g/dl Albumin (3.4-5.0) g/dl Globulin gm/dL Albumin/Globulin Ratio (1-2) Procalcitonin (<0.10) ng/mL Mycoplasma pneumon IgM (NEGATIVE) SARS-CoV-2 RNA (ARTEMIO) (NEGATIVE) Result Diagrams: 07/19/20 04:47 07/19/20 04:47 Luis Results Last 24 hrs: Microbiology 07/17/20 09:22 Gram Stain - Final Leg, Right Anaerobic Culture - Preliminary NO GROWTH AFTER 2 DAYS 07/12/20 17:18 Aerobic Blood Culture - Preliminary Blood - Venous - Lab Draw NO GROWTH AFTER 6 DAYS Anaerobic Blood Culture - Final 07/12/20 16:41 Aerobic Blood Culture - Preliminary Blood - Venous NO GROWTH AFTER 6 DAYS Anaerobic Blood Culture - Preliminary NO GROWTH AFTER 6 DAYS Sepsis Event Note - Evaluation Sepsis Screening Result: No Definite Risk - Focused Exam Vital Signs: Vital Signs Temp Pulse Resp BP Pulse Ox Pulse Ox 07/19/20 10:00 95 07/19/20 09:22 95 07/19/20 07:38 98.2 F 80 18 102/50 L 94 L 07/19/20 05:06 98.6 F 85 16 100/61 90 L 07/19/20 00:40 98.1 F 81 20 97/53 L 88 L *Q Meaningful Use (ADM) - VTE *Q VTE Mechanical Contraindications *Q: Bilateral Lower Dermatits VTE Pharmacological Contraindications *Q: Thrombocytopenia VTE Anticoagulation Contraindications: Medical/Procedure Contrai Consult PN Assessment/Plan Procedures: Procedures AIRWAY INHALATION TREATMENT (06/01/17) ASSAY OF LIPASE (05/06/20) ASSAY OF MAGNESIUM (05/06/20) ASSAY OF NATRIURETIC PEPTIDE (05/06/20) ASSAY OF TROPONIN QUANT (05/06/20) ASSAY THYROID STIM HORMONE (06/13/17) BLOOD TRANSFUSION SERVICE (05/06/20) BLOOD TYPING SEROLOGIC ABO (05/06/20) BLOOD TYPING SEROLOGIC RH(D) (05/06/20) C-REACTIVE PROTEIN (05/06/20) CHEST X-RAY 1 VIEW FRONTAL (06/01/17) CHEST X-RAY 2VW FRONTAL&LATL (10/08/16) COMPATIBILITY TEST ANTIGLOB (05/06/20) COMPLETE CBC W/AUTO DIFF WBC (05/06/20) COMPREHEN METABOLIC PANEL (05/06/20) CT ABD & PELVIS W/O CONTRAST (05/06/20) CT ANGIOGRAPHY CHEST (10/08/16) CT MAXILLOFACIAL W/O DYE (01/22/14) DRUG TEST PRSMV CHEM ANLYZR (05/06/20) DRUG TEST PRSMV INSTRMNT (06/13/17) ELECTROCARDIOGRAM TRACING (05/06/20) EMERGENCY DEPT VISIT (05/06/20) EMERGENCY DEPT VISIT (06/13/17) EMERGENCY DEPT VISIT (06/01/17) EMERGENCY DEPT VISIT (04/12/16) EMERGENCY DEPT VISIT (12/28/15) EMERGENCY DEPT VISIT (03/02/14) EMERGENCY DEPT VISIT (01/22/14) FIBRIN DEGRADATION QUANT (10/08/16) HYDRATE IV INFUSION ADD-ON (06/01/17) IMMUNIZATION ADMIN (12/28/15) MRI LUMBAR SPINE W/O DYE (02/15/14) PROTHROMBIN TIME (05/06/20) RBC ANTIBODY SCREEN (05/06/20) ROUTINE VENIPUNCTURE (05/06/20) TDAP VACCINE 7 YRS/> IM (12/28/15) THER/PROPH/DIAG INJ IV PUSH (06/01/17) THER/PROPH/DIAG INJ SC/IM (12/28/15) THER/PROPH/DIAG IV INF ADDON (05/06/20) THER/PROPH/DIAG IV INF INIT (05/06/20) THROMBOPLASTIN TIME PARTIAL (05/06/20) TX/PRO/DX INJ NEW DRUG ADDON (05/06/20) TX/PRO/DX INJ SAME DRUG BUILDING CONSULTANT (05/06/20) URINALYSIS AUTO W/SCOPE (05/06/20) X-RAY EXAM CHEST 1 VIEW (05/06/20) Problem List Initiated/Reviewed/Updated: No Plan: Pt has symptomatic pleural effusion. Needs urgent thoracentesis. INR is high therefore pt has increased risk for bleeding. He is confused and no POA or next of kin available. I discussed this care with Dr. Banks and we agreed that this procedure needs to be performed urgently to prevent respiratory deterioration.It is necessary. Procedure was performed, about 1000mL of yellow clear fluid removed. Patient was cooperative. No immediate complications.
--- NOTE | 2020-07-19 12:42 | CR ---
Chest: Portable view of the chest was obtained. Comparison: Prior chest CT of 07/18/20. Prior chest x-ray of 07/18/20. Findings: Heart size and mediastinum: Heart size is within normal limits. Slight tortuous thoracic aorta is noted. Lungs: Decreased left-sided pleural effusion is seen compatible with interval thoracentesis. Lung markings are diffusely increased on both sides of the chest which are improved from prior exam. Osseous structures: Previous lower cervical spine surgery is noted. Impression: 1. Decreased left-sided pleural prior exam. 2. Increased lung markings which are improved from prior exam. 3. Other findings as noted above which are incidental. Diagnostic code #3
--- NOTE | 2020-07-19 13:25 | PROC ---
DATE OF OPERATION: 07/19/2020 SURGEON: Addie Shipley MD PREOPERATIVE DIAGNOSIS: Symptomatic right pleural effusion. POSTOPERATIVE DIAGNOSIS: Symptomatic right pleural effusion. PROCEDURE: Image-guided thoracentesis on the right chest. ANESTHESIA: Local anesthetic with 1% lidocaine. COMPLICATIONS: None. INDICATION AND CONSENT: The patient is a 64-year-old male with ascites. The patient presented for confusion, was treated in the hospital, developed increasing oxygen requirement, currently at 7 L of high-flow nasal cannula. Due to increasing oxygen requirement, CT chest was done and found large right-sided pleural effusion. I was asked to evaluate the patient for drainage. The patient had INR of 2.24 due to cirrhosis. The patient does not have any POA or next of kin available. Due to increasing oxygen requirement, this procedure was deemed urgent, and after discussing with other providers, we proceeded with the procedure, which will help the patient breathe better. DESCRIPTION OF PROCEDURE: The patient was placed in supine position. The ultrasound was used to find an area of deep fluid pocket in the right chest. This was at the 6th rib space. This area was marked, prepped and draped in the usual sterile fashion, and time- out was performed. We began the procedure by cleaning the area, injecting local anesthetic, making sure that we were going above the rib and not below it. Then, a standard 14-gauge [id number]-needle was placed into the right pleura with evacuation of a little more than 1 L of ascitic fluid. The fluid was clear yellow. Some of the fluid was placed in the containers for further studies. At the end of the procedure, the catheter was removed. There were no immediate complications. The patient was stable and a chest x-ray will be performed. MMODAL /[id number] RENARD
[2020-07-19] MEDS: cefTRIAXone 2 GM in Sodium Chloride 0.9% 100 ML IV SCH (13:53)
[2020-07-19] MEDS: Nicotine 14 MG/24 Hr Patch TRDERM SCH (13:54)
[2020-07-19] MEDS: oxyCODONE 5 MG Tab PO PRN (15:47)
[2020-07-19] MEDS: Azithromycin 500 MG in Sodium Chloride 0.9% 250 ML IV SCH (15:48)
[2020-07-19] MEDS: Dexamethasone 4 MG Tab PO SCH (15:51)
[2020-07-19] MEDS ORDERED: REMDESIVIR 100 MG in Sodium Chloride 0.9% 100 ML IV SCH (16:30)
[2020-07-19 21:42] LABS: BORDETELLA PARAPERT IS1001 Not Detected (Not Detected)
[2020-07-20] MEDS: Midodrine 5 MG Tab PO SCH ×3 (06:00→17:33)
--- NOTE | 2020-07-20 07:14 | PCM.PN ---
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 Trace tricuspid valve regurgitation. * 7. The right ventricular systolic pressure is unable to be determined. * 8. There is a pleural effusion * WBC 9.58 * CRP 10.2 * Sodium 130 and stable * Creatinine 1.5 and GFR 474 and stable * Awaiting thoracentesis culture * VRP negative * Covid-19 negative (4th time) * Discontinued COVID-19 treatment * Discontinue isolation precautions once off of high flow - Plan Plan:: Bilateral cellulitis/Stasis Dermatitis, improving Dependant edema Small hematoma/abscess on right ramos Leukocytosis Hypoxemia -Monitor WBC and CRP daily -Continued vancomycin with pharmacy to dose -Continue Rocephin Q24hr -Monitor leg inflammation -On IV Lasix to 40 mg daily -On 30L high flow today -Consult Dr. Corbin for right ramos I&D Failure to thrive Hypokalemia, resolved Hyponatremia, continues to improve Lactic Acidosis, likely resolved Medical non-compliance Hx/o hypomagnesemia Hypoalbuminemia, unchanged Relative Hypotension -Consult CM/SW -FISH CONSERVATIONIST cognitive evaluation pending -Will likely need placement at discharge -[employer] consult tomorrow -Monitor electrolytes/magnesium -Supplement magnesium -On Midodrine 5 mg po TID History of ETOH abuse Hepatic encephalopathy End-stage ETOH related cirrhosis Elevated INR Elevated Bilirubin Hx/o esophageal varices Thrombocytopenia Macrocytic Normochromic Anemia Elevated serum ammonia Hyperlactatemia Hallucinations -Continue Lactulose 30mg TID and Lasix 40 mg po daily -Continue spironolactone 50mg daily -Pharmacological DVT prophylaxis contraindicated -Monitor CBC -Continue folic acid, MV, thiamine supplementation -Low protein diet -Consult visiting teacher -Due to end-stage cirrhosis we can expect BPs on the lower side -hyperlactatemia is likely 2/2 to end-stage liver disease and chronic ETOH abuse. Procalcitonin was 0.05 ruling out sepsis. -Routine AM labs with Ammonia Depression -Dr. Powell consult - recommends monitoring -Discontinue Effexor Tobacco use disorder -Cessation counseling at discharge -Nicotine patches Code status: DNR/DNI PCP: Dr. Mccollum DVT prophylaxis: Pharmacological prophylaxis contraindicated due to significant esophageal varices history, Elevated INR, thrombocytopenia. Mechanical prophylaxis contraindicated due to bilateral LE cellulitis, dependant LE edema. Disposition: Patient admitted due to cellulitis, electrolyte abnormalities, failure to thrive and need for placement. Social: Patient reportedly lives in an apartment. [facility] Appraisal Specialist is following patient. Patient has history of leaving water running and forgetting to turn of burner. Per ED note apartment is very unkempt and there are concerns for patient safety. SW/CM consulted. Prognosis: Overall poor prognosis due to end-stage ETOH cirrhosis. LOS >96 HRS due to need for placement, respiratory failure treatment, continued IV abx
[2020-07-20] MEDS: Furosemide 40 MG/4 ML VIAL IVPUSH SCH (08:51)
[2020-07-20] MEDS: Thiamine 100 MG Tab PO SCH (08:57)
[2020-07-20] MEDS: Spironolactone 100 MG Tab PO SCH (08:57)
[2020-07-20] MEDS: Lactulose Soln 10 GM/15 ML 30 ML UD Cup PO SCH ×3 (08:58→21:34)
[2020-07-20] MEDS: Folic Acid 1 MG Tab PO SCH (08:58)
[2020-07-20] MEDS: Multivitamins,Therapeutic Tab PO SCH (09:01)
[2020-07-20] MEDS: Magnesium Oxide 400 MG Tab PO SCH ×2 (09:01→21:36)
[2020-07-20] MEDS ORDERED: Lidocaine 1% with EPINEPHrine 1:100,000 20 ML MDV INJECT ONE (13:30)
--- NOTE | 2020-07-20 14:01 | PCM.CONS ---
H&P History of Present Illness - General Date of Service: 07/20/20 Admit Problem/Dx: Admission Diagnosis/Problem Admission Diagnosis/Problem Cellulitis Source of Information: Old Records, Provider History Limitations: Reports: Altered Mental Status (f) - History of Present Illness Initial Comments - Free Text/Narative: 64 y/o male admitted with confusion, currently being treated for lower extremity cellulitis, as well as pneumonia. Pt is a poor historian due to confusion and hepatic encephalopathy. Per hospitalist PA, the pt developed a fluctuant area on the RLE in the area of the cellulitis. Consult placed for incision and drainage of cellulitis. Pt does have elevated INR, but had an uneventful thoracentesis one day ago. - Related Data Allergies/Adverse Reactions: Allergies Allergy/AdvReac Type Severity Reaction Status Date / Time No Known Allergies Allergy Verified 07/13/20 12:29 Home Medications: Home Meds Folic Acid 1 mg PO DAILY 07/13/20 [History] Furosemide [Lasix] 40 mg PO DAILY 07/13/20 [History] Lactulose 30 ml PO TID 07/13/20 [History] Magnesium Oxide 400 mg PO DAILY 07/13/20 [History] Meclizine [Antivert] 25 mg PO Q4HR PRN 07/13/20 [History] Melatonin 3 mg PO BEDTIME PRN 07/13/20 [History] Multivitamin 1 tab PO DAILY 07/13/20 [History] Spironolactone 50 mg PO DAILY 07/13/20 [History] Thiamine [Vitamin B-1] 100 mg PO DAILY 07/13/20 [History] Venlafaxine [Effexor] 37.5 mg PO BID 07/13/20 [History] oxyCODONE 5 - 10 mg PO Q6H PRN 07/13/20 [History] Past Medical History HEENT History: Reports: Impaired Vision Other HEENT History: wears eyeglasses Cardiovascular History: Reports: Hypertension Other Cardiovascular History: states BP always elevated but not formally Dx'd. Respiratory History: Reports: Other (See Below) Other Respiratory History: coughing up blood daily, pt self-diagnosing with lung cancer. Gastrointestinal History: Reports: Cirrhosis, Diverticulosis, Other (See Below) Other Gastrointestinal History: esophageal varices, ascites Musculoskeletal History: Reports: Back Pain, Chronic, Other (See Below) Other Musculoskeletal History: states has "pinched nerve" to L4. Neurological History: Reports: Concussion, Other (See Below) (hepatic encephalopathy.) Psychiatric History: Reports: Addiction, Anxiety, Depression Endocrine/Metabolic History: Reports: Obesity/BMI 30+ - Past Surgical History HEENT Surgical History: Reports: Tonsillectomy GI Surgical History: Reports: Appendectomy, Colonoscopy, EGD, Hernia, Inguinal, Other (See Below) Other GI Surgeries/Procedures: colon surgery Endocrine Surgical History: Reports: None Musculoskeletal Surgical History: Reports: Other (See Below) Other Musculoskeletal Surgeries/Procedures:: cervical fusion; bunionctomy Dermatological Surgical History: Reports: Skin Graft, Other (See Below) Social & Family History - Family History Family Medical History: Unobtainable (due to AMS) - Tobacco Use Tobacco Use Status *Q: Current Some Day Tobacco User Years of Tobacco use: 11 Packs/Tins Daily: 0.5 Used Tobacco, but Quit: No - Caffeine Use Caffeine Use: Reports: None - Recreational Drug Use Recreational Drug Use: Yes Recreational Drug Type: Reports: Marijuana/Hashish - Living Situation & Occupation Living situation: Reports: Alone Occupation: Unemployed H&P Review of Systems - Review of Systems: Review Of Systems: Unable To Obtain Reason Not Obtained: due to AMS Exam - Exam Exam: See Below - Vital Signs Vital Signs: Last Vital Signs Temp 36.4 C 07/20/20 11:04 Pulse 76 07/20/20 11:04 Resp 24 H 07/20/20 11:04 BP 91/52 L 07/20/20 11:04 Pulse Ox 93 L 07/20/20 11:04 Weight: 85.593 kg - Exam Quality Assessment: Supplemental Oxygen General: Alert, Other (in NAD) HEENT: Conjunctiva Clear, EOMI Neck: Supple Lungs: Normal Respiratory Effort GI/Abdominal Exam: Soft, Tender (diffusely), Other (ascites presesnt). No: Guarding Extremities: Pedal Edema, Other (erythema on anterior RLE with 3cm fluctuant area within) Peripheral Pulses: 1+: Dorsalis Pedis (L), Dorsalis Pedis (R) Skin: Warm, Dry - Patient Data Lab Results Last 24 hrs: Laboratory Results - last 24 hr 07/18/20 07/19/20 07/20/20 Range/Units 14:50 20:14 05:20 WBC (4.23-9.07) K/mm3 RBC (4.63-6.08) M/mm3 Hgb (13.7-17.5) gm/dl Hct (40.1-51.0) % MCV (79.0-92.2) fl MCH (25.7-32.2) pg MCHC (32.2-35.5) g/dl RDW Std Deviation (35.1-43.9) fL Plt Count (163-337) K/mm3 MPV (9.4-12.3) fl Neut % (Auto) (34.0-67.9) % Lymph % (Auto) (21.8-53.1) % Starr % (Auto) (5.3-12.2) % Eos % (Auto) (0.8-7.0) Baso % (Auto) (0.1-1.2) % Neut # (Auto) (1.78-5.38) K/mm3 Lymph # (Auto) (1.32-3.57) K/mm3 Starr # (Auto) (0.30-0.82) K/mm3 Eos # (Auto) (0.04-0.54) K/mm3 Baso # (Auto) (0.01-0.08) K/mm3 Manual Slide Review D-Dimer, Quantitative (0.19-0.50) mg/L Sodium 130 L (136-145) mEq/L Potassium 4.3 (3.5-5.1) mEq/L Chloride 97 L (98-107) mEq/L Carbon Dioxide 21 (21-32) mEq/L Anion Gap 16.3 H (5-15) BUN 36 H (7-18) mg/dL Creatinine 1.5 H (0.7-1.3) mg/dL Est Cr Clr Drug Dosing 47.68 mL/min Estimated GFR (MDRD) 47 (>60) mL/min BUN/Creatinine Ratio 24.0 H (14-18) Glucose 127 H (80-115) mg/dL Calcium 8.7 (8.5-10.1) mg/dL Magnesium (1.8-2.4) mg/dl Total Bilirubin 6.0 H (0.2-1.0) mg/dL AST 78 H (15-37) U/L ALT 60 (16-63) U/L Alkaline Phosphatase 86 (46-116) U/L Ammonia (11-32) umol/L C-Reactive Protein 10.2 H* (<1.0) mg/dL Total Protein 6.5 (6.4-8.2) g/dl Albumin 2.0 L (3.4-5.0) g/dl Globulin 4.5 gm/dL Albumin/Globulin Ratio 0.4 L (1-2) Vancomycin Trough 15.2 (10.0-20.0) Adenovirus (PCR) Not detected (Not Detected) B. pertussis DNA (PCR) Not detected (Not Detected) B.parapertussis DNA PCR Not detected (Not Detected) C. pneumoniae DNA (PCR) Not detected (Not Detected) Coronavirus OC43 (PCR) Not detected (Not Detected) Coronavirus HKU1 (PCR) Not detected (Not Detected) Coronavirus 229E (PCR) Not detected (Not Detected) Coronavirus NL63 (PCR) Not detected (Not Detected) Human Metapneumovir PCR Not detected (Not Detected) Influenza A (RT-PCR) Not detected (Not Detected) Influenza B (RT-PCR) Not detected (Not Detected) M. pneumoniae (PCR) Not detected (Not Detected) Parainfluenza 1 (PCR) Not detected (Not Detected) Parainfluenza 2 (PCR) Not detected (Not Detected) Parainfluenza 3 (PCR) Not detected (Not Detected) Parainfluenza 4 (PCR) Not detected (Not Detected) RSV (PCR) Not detected (Not Detected) Entero/Rhino (PCR) Not detected (Not Detected) SARS-CoV-2 (PCR) Not detected (Not Detected) 07/20/20 07/20/20 07/20/20 Range/Units 05:20 05:20 05:20 WBC 9.58 H (4.23-9.07) K/mm3 RBC 2.82 L (4.63-6.08) M/mm3 Hgb 9.4 L (13.7-17.5) gm/dl Hct 27.9 L (40.1-51.0) % MCV 98.9 H (79.0-92.2) fl MCH 33.3 H (25.7-32.2) pg MCHC 33.7 (32.2-35.5) g/dl RDW Std Deviation 70.1 H (35.1-43.9) fL Plt Count 72 L (163-337) K/mm3 MPV 9.7 (9.4-12.3) fl Neut % (Auto) 83.3 H (34.0-67.9) % Lymph % (Auto) 8.9 L (21.8-53.1) % Starr % (Auto) 7.2 (5.3-12.2) % Eos % (Auto) 0.1 L (0.8-7.0) Baso % (Auto) 0.0 L (0.1-1.2) % Neut # (Auto) 7.98 H (1.78-5.38) K/mm3 Lymph # (Auto) 0.85 L (1.32-3.57) K/mm3 Starr # (Auto) 0.69 (0.30-0.82) K/mm3 Eos # (Auto) 0.01 L (0.04-0.54) K/mm3 Baso # (Auto) 0.00 L (0.01-0.08) K/mm3 Manual Slide Review Abnormal smear D-Dimer, Quantitative 6.73 H (0.19-0.50) mg/L Sodium (136-145) mEq/L Potassium (3.5-5.1) mEq/L Chloride (98-107) mEq/L Carbon Dioxide (21-32) mEq/L Anion Gap (5-15) BUN (7-18) mg/dL Creatinine (0.7-1.3) mg/dL Est Cr Clr Drug Dosing mL/min Estimated GFR (MDRD) (>60) mL/min BUN/Creatinine Ratio (14-18) Glucose (80-115) mg/dL Calcium (8.5-10.1) mg/dL Magnesium 2.5 H (1.8-2.4) mg/dl Total Bilirubin (0.2-1.0) mg/dL AST (15-37) U/L ALT (16-63) U/L Alkaline Phosphatase (46-116) U/L Ammonia (11-32) umol/L C-Reactive Protein (<1.0) mg/dL Total Protein (6.4-8.2) g/dl Albumin (3.4-5.0) g/dl Globulin gm/dL Albumin/Globulin Ratio (1-2) Vancomycin Trough (10.0-20.0) Adenovirus (PCR) (Not Detected) B. pertussis DNA (PCR) (Not Detected) B.parapertussis DNA PCR (Not Detected) C. pneumoniae DNA (PCR) (Not Detected) Coronavirus OC43 (PCR) (Not Detected) Coronavirus HKU1 (PCR) (Not Detected) Coronavirus 229E (PCR) (Not Detected) Coronavirus NL63 (PCR) (Not Detected) Human Metapneumovir PCR (Not Detected) Influenza A (RT-PCR) (Not Detected) Influenza B (RT-PCR) (Not Detected) M. pneumoniae (PCR) (Not Detected) Parainfluenza 1 (PCR) (Not Detected) Parainfluenza 2 (PCR) (Not Detected) Parainfluenza 3 (PCR) (Not Detected) Parainfluenza 4 (PCR) (Not Detected) RSV (PCR) (Not Detected) Entero/Rhino (PCR) (Not Detected) SARS-CoV-2 (PCR) (Not Detected) 07/20/20 Range/Units 05:20 WBC (4.23-9.07) K/mm3 RBC (4.63-6.08) M/mm3 Hgb (13.7-17.5) gm/dl Hct (40.1-51.0) % MCV (79.0-92.2) fl MCH (25.7-32.2) pg MCHC (32.2-35.5) g/dl RDW Std Deviation (35.1-43.9) fL Plt Count (163-337) K/mm3 MPV (9.4-12.3) fl Neut % (Auto) (34.0-67.9) % Lymph % (Auto) (21.8-53.1) % Starr % (Auto) (5.3-12.2) % Eos % (Auto) (0.8-7.0) Baso % (Auto) (0.1-1.2) % Neut # (Auto) (1.78-5.38) K/mm3 Lymph # (Auto) (1.32-3.57) K/mm3 Starr # (Auto) (0.30-0.82) K/mm3 Eos # (Auto) (0.04-0.54) K/mm3 Baso # (Auto) (0.01-0.08) K/mm3 Manual Slide Review D-Dimer, Quantitative (0.19-0.50) mg/L Sodium (136-145) mEq/L Potassium (3.5-5.1) mEq/L Chloride (98-107) mEq/L Carbon Dioxide (21-32) mEq/L Anion Gap (5-15) BUN (7-18) mg/dL Creatinine (0.7-1.3) mg/dL Est Cr Clr Drug Dosing mL/min Estimated GFR (MDRD) (>60) mL/min BUN/Creatinine Ratio (14-18) Glucose (80-115) mg/dL Calcium (8.5-10.1) mg/dL Magnesium (1.8-2.4) mg/dl Total Bilirubin (0.2-1.0) mg/dL AST (15-37) U/L ALT (16-63) U/L Alkaline Phosphatase (46-116) U/L Ammonia 13 (11-32) umol/L C-Reactive Protein (<1.0) mg/dL Total Protein (6.4-8.2) g/dl Albumin (3.4-5.0) g/dl Globulin gm/dL Albumin/Globulin Ratio (1-2) Vancomycin Trough (10.0-20.0) Adenovirus (PCR) (Not Detected) B. pertussis DNA (PCR) (Not Detected) B.parapertussis DNA PCR (Not Detected) C. pneumoniae DNA (PCR) (Not Detected) Coronavirus OC43 (PCR) (Not Detected) Coronavirus HKU1 (PCR) (Not Detected) Coronavirus 229E (PCR) (Not Detected) Coronavirus NL63 (PCR) (Not Detected) Human Metapneumovir PCR (Not Detected) Influenza A (RT-PCR) (Not Detected) Influenza B (RT-PCR) (Not Detected) M. pneumoniae (PCR) (Not Detected) Parainfluenza 1 (PCR) (Not Detected) Parainfluenza 2 (PCR) (Not Detected) Parainfluenza 3 (PCR) (Not Detected) Parainfluenza 4 (PCR) (Not Detected) RSV (PCR) (Not Detected) Entero/Rhino (PCR) (Not Detected) SARS-CoV-2 (PCR) (Not Detected) Result Diagrams: 07/20/20 05:20 07/20/20 05:20 Luis Results Last 24 hrs: Microbiology 07/18/20 10:00 MRSA Culture - Final Nasal/Axilla/Groin NO MRSA ISOLATED 07/17/20 09:22 Gram Stain - Final Leg, Right Anaerobic Culture - Preliminary 07/19/20 12:05 Body Fluid Culture - Preliminary Pleural Fluid NO GROWTH AFTER 1 DAY 07/12/20 17:18 Aerobic Blood Culture - Final Blood - Venous - Lab Draw NO GROWTH AFTER 7 DAYS Anaerobic Blood Culture - Final 07/12/20 16:41 Aerobic Blood Culture - Final Blood - Venous NO GROWTH AFTER 7 DAYS Anaerobic Blood Culture - Final NO GROWTH AFTER 7 DAYS Sepsis Event Note - Evaluation Sepsis Screening Result: No Definite Risk - Focused Exam Vital Signs: Vital Signs Temp Pulse Resp BP Pulse Ox Pulse Ox 07/20/20 11:04 36.4 C 76 24 H 91/52 L 93 L 07/20/20 10:00 92 L 07/20/20 08:35 92 L 07/20/20 07:19 36.4 C 75 18 96/47 L 93 L 07/20/20 05:30 96 07/20/20 04:42 36.5 C 84 20 102/53 L 89 L *Q Meaningful Use (ADM) - VTE *Q VTE Mechanical Contraindications *Q: Bilateral Lower Dermatits VTE Pharmacological Contraindications *Q: Thrombocytopenia VTE Anticoagulation Contraindications: Medical/Procedure Contrai Consult PN Assessment/Plan Procedures: Procedures AIRWAY INHALATION TREATMENT (06/01/17) ASSAY OF LIPASE (05/06/20) ASSAY OF MAGNESIUM (05/06/20) ASSAY OF NATRIURETIC PEPTIDE (05/06/20) ASSAY OF TROPONIN QUANT (05/06/20) ASSAY THYROID STIM HORMONE (06/13/17) BLOOD TRANSFUSION SERVICE (05/06/20) BLOOD TYPING SEROLOGIC ABO (05/06/20) BLOOD TYPING SEROLOGIC RH(D) (05/06/20) C-REACTIVE PROTEIN (05/06/20) CHEST X-RAY 1 VIEW FRONTAL (06/01/17) CHEST X-RAY 2VW FRONTAL&LATL (10/08/16) COMPATIBILITY TEST ANTIGLOB (05/06/20) COMPLETE CBC W/AUTO DIFF WBC (05/06/20) COMPREHEN METABOLIC PANEL (05/06/20) CT ABD & PELVIS W/O CONTRAST (05/06/20) CT ANGIOGRAPHY CHEST (10/08/16) CT MAXILLOFACIAL W/O DYE (01/22/14) DRUG TEST PRSMV CHEM ANLYZR (05/06/20) DRUG TEST PRSMV INSTRMNT (06/13/17) ELECTROCARDIOGRAM TRACING (05/06/20) EMERGENCY DEPT VISIT (05/06/20) EMERGENCY DEPT VISIT (06/13/17) EMERGENCY DEPT VISIT (06/01/17) EMERGENCY DEPT VISIT (04/12/16) EMERGENCY DEPT VISIT (12/28/15) EMERGENCY DEPT VISIT (03/02/14) EMERGENCY DEPT VISIT (01/22/14) FIBRIN DEGRADATION QUANT (10/08/16) HYDRATE IV INFUSION ADD-ON (06/01/17) IMMUNIZATION ADMIN (12/28/15) MRI LUMBAR SPINE W/O DYE (02/15/14) PROTHROMBIN TIME (05/06/20) RBC ANTIBODY SCREEN (05/06/20) ROUTINE VENIPUNCTURE (05/06/20) TDAP VACCINE 7 YRS/> IM (12/28/15) THER/PROPH/DIAG INJ IV PUSH (06/01/17) THER/PROPH/DIAG INJ SC/IM (12/28/15) THER/PROPH/DIAG IV INF ADDON (05/06/20) THER/PROPH/DIAG IV INF INIT (05/06/20) THROMBOPLASTIN TIME PARTIAL (05/06/20) TX/PRO/DX INJ NEW DRUG ADDON (05/06/20) TX/PRO/DX INJ SAME DRUG PERFORATOR OPERATOR (05/06/20) URINALYSIS AUTO W/SCOPE (05/06/20) X-RAY EXAM CHEST 1 VIEW (05/06/20) (1) Abscess of right leg SNOMED Code(s): 662644617 Code(s): L02.415 - CUTANEOUS ABSCESS OF RIGHT LOWER LIMB Current Visit: Yes (2) Bilateral lower leg cellulitis SNOMED Code(s): 738327817 Code(s): L03.116 - CELLULITIS OF LEFT LOWER LIMB; L03.115 - CELLULITIS OF RIGHT LOWER LIMB Priority: High Current Visit: Yes Problem List Initiated/Reviewed/Updated: Yes Plan: 64 y/o gentleman with multiple medical problems including hepatic enc ephalopathy, admitted for treatment of bilateral lower extremity cellulitis and pneumonia, now with abscess on the RLE - plan for incision and drainage. This is a medically necessary procedure as agreed upon by myself, Alvin Ballesteros and Dr. Jennifer Castro. Will proceed with incision and drainage. Will need daily dressing changes with removal and replacement of 1/4in strip packing daily. May change overlying daily, or as needed if it becomes soiled. - pt with high INR, but is at baseline. Will proceed with caution - continue medical management per primary team Fabiola Guidry MD General surgery
--- NOTE | 2020-07-20 14:18 | PCM.PRNOTE ---
- Free Text/Narrative Note: Date of procedure: July 20, 2020 Procedure: incision and drainage of right leg abscess Preprocedure diagnosis: right leg cellulitis with abscess Postprocedure diagnosis: same Surgeon: Fabiola Guidry MD Anesthesia: 1% lidocaine with epinephrine EBL: 3mL specimen: none Indication: abscess of the Right leg Procedure: The right leg was prepped with chlorhexidine solution, and draped in standard fashion. The skin over the abscess was anesthetized with 1% lidocaine with epinephrine. An 11 blade scalpel was used to make a 1.5cm incision on the fluctuant area. The cavity was drained of old blood and purulent fluid. The cavity was then packed with 1/4 in strip packing. A dry dressing and compression wrap was applied. The patient tolerated the procedure well without any apparent complications. Fabiola Guidry MD General surgery
[2020-07-20] MEDS: cefTRIAXone 2 GM in Sodium Chloride 0.9% 100 ML IV SCH (14:26)
[2020-07-20] MEDS: Nicotine 14 MG/24 Hr Patch TRDERM SCH (14:29)
[2020-07-20] MEDS: Azithromycin 500 MG in Sodium Chloride 0.9% 250 ML IV SCH (15:19)
[2020-07-21] MEDS: Melatonin 3 MG Tab PO PRN (00:05)
[2020-07-21] MEDS: oxyCODONE 5 MG Tab PO PRN ×2 (05:35→05:48)
[2020-07-21] MEDS: Midodrine 5 MG Tab PO SCH ×3 (06:14→18:09)
--- NOTE | 2020-07-21 07:56 | PCM.PN ---
- General Info Date of Service: 07/21/20 Admission Dx/Problem (Free Text): Admission Diagnosis/Problem Admission Diagnosis/Problem Cellulitis Subjective Update: In to see Mandeep. He remains confused but looks better. Functional Status: Reports: Pain Controlled, Tolerating Diet, Ambulating, Urinating, Incentive Spirometry. Denies: New Symptoms - Review of Systems General: Reports: No Symptoms, Weakness, Fatigue. Denies: Fever, Malaise, Chills HEENT: Reports: No Symptoms. Denies: Headaches, Sore Throat Pulmonary: Reports: No Symptoms, Shortness of Breath. Denies: Cough Cardiovascular: Reports: Dyspnea on Exertion, Edema (improving ). Denies: Chest Pain, Palpitations Gastrointestinal: Reports: No Symptoms. Denies: Abdominal Pain, Constipation, Diarrhea, Nausea, Vomiting Genitourinary: Reports: No Symptoms. Denies: Pain Musculoskeletal: Reports: No Symptoms, Other (General myalgias ) Skin: Reports: No Symptoms, Jaundice. Denies: Cyanosis Neurological: Reports: Confusion, Pre-Existing Deficit, Difficulty Walking, Weakness, Gait Disturbance. Denies: Headache, Numbness, Syncope, Tingling Psychiatric: Reports: Confusion, Hallucinations (at times ). Denies: D epression, Mood Lability, Anxiety, Agitation - Patient Data Vitals - Most Recent: Last Vital Signs Temp 97.0 F 07/21/20 03:43 Pulse 73 07/21/20 03:43 Resp 20 07/21/20 03:43 BP 98/67 07/21/20 03:43 Pulse Ox 93 L 07/21/20 03:43 Weight - Most Recent: 191 lb 12.8 oz I&O - Last 24 Hours: Intake & Output 07/20/20 07/21/20 07/21/20 22:59 06:59 14:59 Intake Total 1160 650 Output Total 550 300 Balance 610 350 Lab Results Last 24 Hours: Laboratory Results - last 24 hr 07/20/20 07/20/20 07/21/20 Range/Units 05:20 05:20 06:15 WBC (4.23-9.07) K/mm3 RBC (4.63-6.08) M/mm3 Hgb (13.7-17.5) gm/dl Hct (40.1-51.0) % MCV (79.0-92.2) fl MCH (25.7-32.2) pg MCHC (32.2-35.5) g/dl RDW Std Deviation (35.1-43.9) fL Plt Count (163-337) K/mm3 MPV (9.4-12.3) fl Neut % (Auto) (34.0-67.9) % Lymph % (Auto) (21.8-53.1) % [place] % (Auto) (5.3-12.2) % Eos % (Auto) (0.8-7.0) Baso % (Auto) (0.1-1.2) % Neut # (Auto) (1.78-5.38) K/mm3 Lymph # (Auto) (1.32-3.57) K/mm3 [place] # (Auto) (0.30-0.82) K/mm3 Eos # (Auto) (0.04-0.54) K/mm3 Baso # (Auto) (0.01-0.08) K/mm3 Manual Slide Review D-Dimer, Quantitative 6.73 H (0.19-0.50) mg/L Sodium 130 L (136-145) mEq/L Potassium 3.8 (3.5-5.1) mEq/L Chloride 96 L (98-107) mEq/L Carbon Dioxide 22 (21-32) mEq/L Anion Gap 15.8 H (5-15) BUN 35 H (7-18) mg/dL Creatinine 1.3 (0.7-1.3) mg/dL Est Cr Clr Drug Dosing 55.01 mL/min Estimated GFR (MDRD) 55 (>60) mL/min BUN/Creatinine Ratio 26.9 H (14-18) Glucose 124 H (80-115) mg/dL Calcium 8.8 (8.5-10.1) mg/dL Magnesium 2.5 H (1.8-2.4) mg/dl Total Bilirubin 5.6 H (0.2-1.0) mg/dL AST 109 H (15-37) U/L ALT 81 H (16-63) U/L Alkaline Phosphatase 91 (46-116) U/L C-Reactive Protein 8.4 H* (<1.0) mg/dL Total Protein 6.6 (6.4-8.2) g/dl Albumin 2.0 L (3.4-5.0) g/dl Globulin 4.6 gm/dL Albumin/Globulin Ratio 0.4 L (1-2) 07/21/20 07/21/20 Range/Units 06:15 06:15 WBC 10.17 H (4.23-9.07) K/mm3 RBC 2.80 L (4.63-6.08) M/mm3 Hgb 9.4 L (13.7-17.5) gm/dl Hct 27.8 L (40.1-51.0) % MCV 99.3 H (79.0-92.2) fl MCH 33.6 H (25.7-32.2) pg MCHC 33.8 (32.2-35.5) g/dl RDW Std Deviation 70.4 H (35.1-43.9) fL Plt Count 67 L (163-337) K/mm3 MPV 9.5 (9.4-12.3) fl Neut % (Auto) 82.9 H (34.0-67.9) % Lymph % (Auto) 8.4 L (21.8-53.1) % Hern[place] % (Auto) 8.1 (5.3-12.2) % Eos % (Auto) 0.1 L (0.8-7.0) Baso % (Auto) 0.1 (0.1-1.2) % Neut # (Auto) 8.44 H (1.78-5.38) K/mm3 Lymph # (Auto) 0.85 L (1.32-3.57) K/mm3 [place] # (Auto) 0.82 (0.30-0.82) K/mm3 Eos # (Auto) 0.01 L (0.04-0.54) K/mm3 Baso # (Auto) 0.01 (0.01-0.08) K/mm3 Manual Slide Review Abnormal smear D-Dimer, Quantitative (0.19-0.50) mg/L Sodium (136-145) mEq/L Potassium (3.5-5.1) mEq/L Chloride (98-107) mEq/L Carbon Dioxide (21-32) mEq/L Anion Gap (5-15) BUN (7-18) mg/dL Creatinine (0.7-1.3) mg/dL Est Cr Clr Drug Dosing mL/min Estimated GFR (MDRD) (>60) mL/min BUN/Creatinine Ratio (14-18) Glucose (80-115) mg/dL Calcium (8.5-10.1) mg/dL Magnesium 2.5 H (1.8-2.4) mg/dl Total Bilirubin (0.2-1.0) mg/dL AST (15-37) U/L ALT (16-63) U/L Alkaline Phosphatase (46-116) U/L C-Reactive Protein (<1.0) mg/dL Total Protein (6.4-8.2) g/dl Albumin (3.4-5.0) g/dl Globulin gm/dL Albumin/Globulin Ratio (1-2) Luis Results Last 24 Hours: Microbiology 07/19/20 12:05 Gram Stain - Final Pleural Fluid Body Fluid Culture - Preliminary NO GROWTH AFTER 1 DAY 07/18/20 10:00 MRSA Culture - Final Nasal/Axilla/Groin NO MRSA ISOLATED 07/17/20 09:22 Gram Stain - Final Leg, Right Anaerobic Culture - Preliminary Med Orders - Current: Current Medications Acetaminophen (Tylenol) 650 mg PO Q4H PRN PRN Reason: Pain/Fever Last Admin: 07/14/20 21:35 Dose: 650 mg Documented by: Folic Acid (Folic Acid) 1 mg PO DAILY [facility] Last Admin: 07/20/20 08:58 Dose: 1 mg Documented by: Furosemide (Lasix) 40 mg IVPUSH DAILY [facility] Last Admin: 07/20/20 08:51 Dose: 40 mg Documented by: Vancomycin HCl 1 gm/ Sodium (Chloride) 250 mls @ 250 mls/hr IV Q24H [facility] Last Admin: 07/20/20 21:36 Dose: 250 mls/hr Documented by: Ceftriaxone Sodium 2 gm/ (Sodium Chloride) 100 mls @ 200 mls/hr IV Q24H [facility] Last Admin: 07/20/20 14:26 Dose: 200 mls/hr Documented by: Azithromycin 500 mg/ Sodium (Chloride) 250 mls @ 250 mls/hr IV Q24H [facility] Last Admin: 07/20/20 15:19 Dose: 250 mls/hr Documented by: Lactulose (Cephulac) 30 gm PO TID [facility] Last Admin: 07/20/20 21:34 Dose: 30 gm Documented by: Magnesium Oxide (Magnesium Oxide) 400 mg PO BID [facility] Last Admin: 07/20/20 21:36 Dose: 400 mg Documented by: Melatonin (Melatonin) 3 mg PO BEDTIME PRN PRN Reason: insomnia Last Admin: 07/21/20 00:05 Dose: 3 mg Documented by: Midodrine (Midodrine) 5 mg PO TIDAC [facility] Last Admin: 07/21/20 06:14 Dose: 5 mg Documented by: Miscellaneous Information (Remove Patch) 0 ea TRDERM Q24H [facility] Last Admin: 07/20/20 14:30 Dose: Not Given Documented by: Multivitamins (Thera) 1 each PO DAILY [facility] Last Admin: 07/20/20 09:01 Dose: 1 each Documented by: Nicotine (Habitrol) 14 mg TRDERM Q24H [facility] Last Admin: 07/20/20 14:29 Dose: 14 mg Documented by: Ondansetron HCl (Zofran) 4 mg IV Q6H PRN PRN Reason: Nausea/Vomiting Oxycodone HCl (Oxycodone) 5 mg PO Q6H PRN PRN Reason: Pain (moderate 4-6) Last Admin: 07/21/20 05:35 Dose: 5 mg Documented by: Oxycodone HCl (Oxycodone) 10 mg PO Q6H PRN PRN Reason: Pain (severe 7-10) Last Admin: 07/21/20 05:48 Dose: 5 mg Documented by: Spironolactone (Aldactone) 100 mg PO DAILY [facility] Last Admin: 07/20/20 08:57 Dose: 100 mg Documented by: Thiamine HCl (Vitamin B-1) 100 mg PO DAILY [facility] Last Admin: 07/20/20 08:57 Dose: 100 mg Documented by: Vancomycin HCl (Pharmacy To Dose - Vancomycin) 1 dose .XX ASDIRECTED [facility] Discontinued Medications Alprazolam (Xanax) 1 mg PO BEDTIME ONE Stop: 07/12/20 21:01 Last Admin: 07/12/20 21:24 Dose: 1 mg Documented by: Alprazolam (Xanax) 1 mg PO BEDTIME [facility] Dexamethasone (Dexamethasone) 6 mg PO Q24H [facility] Stop: 07/27/20 16:01 Last Admin: 07/19/20 15:51 Dose: 6 mg Documented by: Folic Acid (Folic Acid) 1 mg PO DAILY [facility] Furosemide (Lasix) 40 mg IVPUSH NOW ONE Stop: 07/12/20 19:17 Last Admin: 07/12/20 19:38 Dose: 40 mg Documented by: Furosemide (Lasix) 40 mg IVPUSH NOW ONE Stop: 07/13/20 09:15 Last Admin: 07/13/20 09:42 Dose: 40 mg Documented by: Furosemide (Lasix) 40 mg IVPUSH DAILY [facility] Furosemide (Lasix) 20 mg IVPUSH DAILY [facility] Last Admin: 07/14/20 10:10 Dose: 20 mg Documented by: Sodium Chloride (Normal Saline) 1,000 mls @ 125 mls/hr IV ASDIRECTED [facility] Last Admin: 07/12/20 17:03 Dose: 125 mls/hr Documented by: Vancomycin HCl 1.5 gm/ Sodium (Chloride) 500 mls @ 250 mls/hr IV ONETIME ONE Stop: 07/12/20 19:21 Last Admin: 07/12/20 20:07 Dose: 250 mls/hr Documented by: Vancomycin HCl 1 gm/ Sodium (Chloride) 250 mls @ 250 mls/hr IV Q12H [facility] Last Admin: 07/14/20 23:00 Dose: 250 mls/hr Documented by: Ceftriaxone Sodium 2 gm/ (Sodium Chloride) 100 mls @ 200 mls/hr IV Q24H [facility] Last Admin: 07/14/20 14:38 Dose: 200 mls/hr Documented by: Sodium Chloride (Normal Saline) 1,000 mls @ 100 mls/hr IV ASDIRECTED [facility] Stop: 07/15/20 00:59 Last Admin: 07/14/20 00:04 Dose: 100 mls/hr Documented by: Sodium Chloride (Normal Saline) 100 mls @ 75 mls/hr IV ASDIRECTED [facility] Stop: 07/18/20 17:00 Remdesivir 200 mg/ Sodium (Chloride) 250 mls @ 250 mls/hr IV ONETIME ONE Stop: 07/18/20 17:29 Last Admin: 07/18/20 17:55 Dose: 250 mls/hr Documented by: Remdesivir 100 mg/ Sodium (Chloride) 100 mls @ 100 mls/hr IV Q24H [facility] Stop: 07/22/20 17:29 Last Admin: 12/01/20 17:14 Dose: 100 mls/hr Documented by: Iopamidol (Isovue-370 (76%)) 100 ml IVPUSH ONETIME ONE Stop: 07/18/20 13:38 Last Admin: 07/18/20 16:43 Dose: Not Given Documented by: Lactulose (Cephulac) 20 gm PO TID [facility] Last Admin: 07/13/20 15:46 Dose: Not Given Documented by: Lactulose (Cephulac) 20 gm PO TID [facility] Last Admin: 07/15/20 10:21 Dose: 20 gm Documented by: Lidocaine/Epinephrine (Xylocaine 1% With Epinephrine 1:100,000) 20 ml INJECT ONETIME ONE Stop: 07/20/20 13:31 Last Admin: 07/20/20 14:59 Dose: Not Given Documented by: Non-Formulary Medication (Magnesium Oxide [Magnesium Oxide]) 400 mg PO DAILY [facility] Oxycodone HCl (Oxycodone) 5 - 10 mg PO Q6H PRN PRN Reason: Pain Potassium Chloride (Klor-Con M20) 40 meq PO TID [facility] Stop: 07/14/20 09:01 Last Admin: 07/14/20 10:09 Dose: 40 meq Documented by: Sodium Chloride (Saline Flush) 10 ml FLUSH ONETIME PRN PRN Reason: IV FLUSH Stop: 07/18/20 17:00 Spironolactone (Aldactone) 25 mg PO ONETIME ONE Stop: 07/12/20 19:18 Last Admin: 07/12/20 19:38 Dose: 25 mg Documented by: Spironolactone (Aldactone) 25 mg PO ONETIME ONE Stop: 07/13/20 09:16 Last Admin: 07/13/20 09:50 Dose: 25 mg Documented by: Spironolactone (Aldactone) 25 mg PO DAILY [facility] Spironolactone (Aldactone) 50 mg PO DAILY [facility] Last Admin: 07/15/20 10:20 Dose: 50 mg Documented by: Thiamine HCl (Vitamin B-1) 100 mg PO DAILY [facility] Vancomycin HCl (Vancocin) Confirm Administered Dose 1 gm .ROUTE .STK-MED ONE Stop: 07/17/20 21:34 Last Admin: 07/17/20 23:07 Dose: Not Given Documented by: Venlafaxine HCl (Effexor) 37.5 mg PO BID MELISSA - Exam Quality Assessment: Supplemental Oxygen (4L ). No: Urine Catheter, DVT Prophylaxis (Contraindicated ) General: Alert, Cooperative, No Acute Distress. No: Oriented HEENT: Pupils Equal, Pupils Reactive, Mucous Membr. Moist/[place], Scleral Icterus Neck: Supple, Trachea Midline Lungs: Normal Respiratory Effort, Decreased Breath Sounds Cardiovascular: Regular Rate, Regular Rhythm GI/Abdominal Exam: Normal Bowel Sounds, Soft, Non-Tender, No Distention (Male) Exam: Deferred Extremities: Normal Range of Motion, Pedal Edema, Leg Pain, Increased Warmth (improving ), Redness (improving ), Other (Bandage on right ramos s/p I&D) Skin: Warm, Dry, Intact Wound/Incisions: Healing Well, Dressing Dry and Intact, Erythema Improving Neurological: No New Focal Deficit Psy/Mental Status: Alert, Normal Affect. No: Labile Mood, Anxious, Agitated Sepsis Event Note - Evaluation Sepsis Screening Result: No Definite Risk - Focused Exam Vital Signs: Vital Signs Temp Pulse Resp BP Pulse Ox 07/21/20 03:43 97.0 F 73 20 98/67 93 L 07/20/20 23:44 97.2 F 74 16 91/63 91 L - Problem List & Annotations (1) Tobacco use disorder SNOMED Code(s): 488166912 Code(s): F17.200 - NICOTINE DEPENDENCE, UNSPECIFIED, UNCOMPLICATED Status: Chronic Priority: Medium Current Visit: No (2) History of alcohol abuse SNOMED Code(s): 567710655 Code(s): F10.11 - ALCOHOL ABUSE, IN REMISSION Status: Chronic Priority: Medium Current Visit: No (3) Esophageal varices without bleeding SNOMED Code(s): 22677691 Code(s): I85.00 - ESOPHAGEAL VARICES WITHOUT BLEEDING Status: Chronic Priority: Medium Current Visit: No Qualifiers: Esophageal varices type: unspecified type Qualified Code(s): I85.00 - Esophageal varices without bleeding (4) Failure to thrive SNOMED Code(s): 89418098 Code(s): QYR3677 - Status: Acute Priority: High Current Visit: Yes Qualifiers: Failure to thrive age range: in adult Qualified Code(s): R62.7 - Adult failure to thrive (5) Difficulty walking SNOMED Code(s): 450569904 Code(s): R26.2 - DIFFICULTY IN WALKING, NOT ELSEWHERE CLASSIFIED Status: Acute Priority: High Current Visit: Yes (6) Medical non-compliance SNOMED Code(s): 897576024 Code(s): Z91.19 - PATIENT'S NONCOMPLIANCE W H MEDICAL TREATMENT AND REGIMEN Status: Chronic Priority: High Current Visit: Yes (7) Serum ammonia increased SNOMED Code(s): 8545666 Code(s): E72.20 - DISORDER OF UREA CYCLE METABOLISM, UNSPECIFIED Status: Chronic Priority: High Current Visit: Yes (8) Anemia SNOMED Code(s): 113250116 Code(s): D64.9 - ANEMIA, UNSPECIFIED Status: Chronic Current Visit: Yes Qualifiers: Anemia type: bone marrow failure Bone marrow failure anemia type: unspecified bone marrow failure Qualified Code(s): D61.9 - Aplastic anemia, unspecified (9) Bilateral lower leg cellulitis SNOMED Code(s): 769601807 Code(s): L03.116 - CELLULITIS OF LEFT LOWER LIMB; L03.115 - CELLULITIS OF RIGHT LOWER LIMB Status: Acute Priority: High Current Visit: Yes (10) Cirrhosis of liver SNOMED Code(s): 86735241 Code(s): K74.60 - UNSPECIFIED CIRRHOSIS OF LIVER Status: Chronic Priority: High Current Visit: Yes Qualifiers: Hepatic cirrhosis type: alcoholic cirrhosis Ascites presence: with ascites Qualified Code(s): K70.31 - Alcoholic cirrhosis of liver with ascites (11) Dependent edema SNOMED Code(s): 451231401 Code(s): R60.9 - EDEMA, UNSPECIFIED Status: Acute Priority: High Current Visit: Yes (12) Elevated INR SNOMED Code(s): 132159181 Code(s): R79.1 - ABNORMAL COAGULATION PROFILE Status: Chronic Priority: Medium Current Visit: Yes (13) Hypokalemia SNOMED Code(s): 21125238 Code(s): E87.6 - HYPOKALEMIA Status: Resolved Priority: High Current Visit: Yes (14) Hyponatremia SNOMED Code(s): 01669792 Code(s): E87.1 - HYPO-OSMOLALITY AND HYPONATREMIA Status: Acute Priority: High Current Visit: Yes (15) Thrombocytopenia SNOMED Code(s): 180400757 Code(s): D69.6 - THROMBOCYTOPENIA, UNSPECIFIED Status: Chronic Priority: High Current Visit: Yes (16) Depression SNOMED Code(s): 92604411 Code(s): F32.9 - MAJOR DEPRESSIVE DISORDER, SINGLE EPISODE, UNSPECIFIED Status: Chronic Priority: Medium Current Visit: Yes Qualifiers: Depression Type: other depression Qualified Code(s): F32.89 - Other specifi ed depressive episodes (17) Hepatic encephalopathy SNOMED Code(s): 89872655 Code(s): K72.90 - HEPATIC FAILURE, UNSPECIFIED WITHOUT COMA Status: Chronic Priority: High Current Visit: Yes (18) Lactic acidosis SNOMED Code(s): 90476297 Code(s): E87.2 - ACIDOSIS Status: Acute Priority: High Current Visit: Yes (19) Hypoxia SNOMED Code(s): 311072475 Code(s): R09.02 - HYPOXEMIA Status: Acute Priority: High Current Visit: Yes (20) Elevated d-dimer SNOMED Code(s): 562338955 Code(s): R79.89 - OTHER SPECIFIED ABNORMAL FINDINGS OF BLOOD CHEMISTRY Status: Acute Priority: High Current Visit: Yes (21) Respiratory failure SNOMED Code(s): 146509216 Code(s): J96.90 - RESPIRATORY FAILURE, UNSP, UNSP W HYPOXIA OR HYPERCAPNIA Status: Acute Priority: High Current Visit: Yes Qualifiers: Chronicity: acute Respiratory failure complication: hypoxia Qualified Code(s): J96.01 - Acute respiratory failure with hypoxia (22) Suspected COVID-19 virus infection SNOMED Code(s): 718208449 Code(s): Z20.828 - CONTACT W AND EXPOSURE TO OTH VIRAL COMMUNICABLE DISEASES Status: Acute Priority: High Current Visit: Yes (23) S/P thoracentesis SNOMED Code(s): 553544423, 58714469, 768425621 Code(s): Z98.890 - OTHER SPECIFIED POSTPROCEDURAL STATES Status: Acute Priority: Low Current Visit: Yes (24) Status post incision and drainage SNOMED Code(s): 838598079, 087780444 Code(s): Z98.890 - OTHER SPECIFIED POSTPROCEDURAL STATES Status: Acute Priority: Medium Current Visit: Yes - Problem List Review Problem List Initiated/Reviewed/Updated: Yes - My Orders Last 24 Hours: My Active Orders 07/20/20 12:36 Notify Provider Consults [RC] ASDIRECTED Consult to Physician [CONS] Routine 07/22/20 05:11 CBC WITH AUTO DIFF [HEME] AM MAGNESIUM [CHEM] AM - Assessment Assessment:: 07/13/2020 - Day of Admission -64 yo Male who presents to ED on 07/12/20 with confusion and bilateral cellulitis -History of hepatic encephalopathy, End stage liver disease, ETOH abuse, Tobacco use, Esophageal varices with banding, depression, dependant edema -Patient admits to ED provider that he has not been taking his medications because he forgets -Denies any ETOH use for past 2 months (ETOH in ED was 0.00) -Kept in ED overnight due to bed shortage statewide and us being on diversion -Started on Vancomycin in ED foe cellulitis -Given lactulose, spironolactone, lasix, IV fluids, Xanax, vancomycin in ED -No WBC in ED, although likely cannot mount immunologic defense due to alcoholic bone marrow suppression -Sepsis criteria: -Bilateral cellulitis, No tachycardia, tachypnea, WBC, or fever -Hypotension likely 2/2 end stage liver failure, Lactate >2 likely 2/2 chronic ETOH abuse, Bilirubin >2 chronically, Platelets <100 chronically, INR elevated 2/2 End stage liver disease -Does not meet criteria -Per ED provider social work states patient apartment was very unkempt -Social work reports patient has been known to leave water running and burners on in apartment. Patient is being evicted. 07/14/2020 * Small improvement in cellulitis * Procalcitonin was negative at 0.05 * White count 6.1 and CRP 2.1 * Lactic acid is chronically elevated due to liver disease at 2.6. Total bilirubin elevated at 7.8 and direct bilirubin 3.8 * Oxygen requirement has increased to 4 L/min * Sodium chronically low at 131 07/15/2020 * Continued improvement in cellulitis * WBC remains WNL at 7.19 with CRP of 2.2 * Oxygen requirement has decreased to 2L * Blood cultures negative thus far * Sodium improved to 133 * Potassium 4.3 * Dr. Powell saw patient and recommends withholding patients effexor and monitoring * Patient remains quite confused 07/16/20 * Continue current treatment * Routine AM labs with Ammonia * Midodrine 5 mg po TIDAC * Remains confused with hallucinations (seeing squirrels inside his room) * May consider anti-psychotic medications if needed * Need Tele-psych consult 07/17/20 * Continue current treatment: Rocephin and Vancomycin * Routine AM labs * Offered I&D but patient refused * Wound culture on right ramos * Remains confused with hallucinations (seeing squirrels inside his room) * May consider anti-psychotic medications if needed * Need Tele-psych follow up * LOS > 96 HRS due to need for placement 07/18/20 * WBC improved to 10.41 from 11.68 * CRP 9.1 from 5.7 * Creatinine 1.4 with GFR of 51 * Requiring 6L O2 via NC * Wound culture showing no growth * MELD-Na score on admission calculated to be 29 points - 27-32% estimated 90- day mortality * D-Dimer 7.29 * BNP 1009 * INR 2.33 * CTA shows pleural effusions and ground glass opacities concerning for viral/atypical pneumonia\ * Discussed plan with Dr. Castro - will start covid-19 treatment protocol 07/19/2020 * WBC 8.31 * CRP Up to 11.4 * Ferritin 513 * LDH 475 * Procalcitonin 0.43 * Creatinine 1.5, GFR 47 * INR 2.24 * On high flow oxygen * Thoracentesis performed today by Dr. Shipley with just over 1L clear straw colored output 07/20/2020 * Echo results show: * 1. LVEF, by visual estimation, is 65-70% * 2. Hyperdynamic left ventricular systolic function * 3. Verbally normal right ventricular systolic function and size, not well visualized. * 4. The aortic valve is not well visualized. * 5. Trace mitral valve regurgitation * 6. Trace tricuspid valve regurgitation. * 7. The right ventricular systolic pressure is unable to be determined. * 8. There is a pleural effusion * WBC 9.58 * CRP 10.2 * Sodium 130 and stable * Creatinine 1.5 and GFR 47 and stable * Awaiting thoracentesis culture * VRP negative * Covid-19 negative (4th time) * Discontinued COVID-19 treatment * Discontinue isolation precautions once off of high flow 07/21/2020 * WBC 10.17 * CRP 8.4 * Sodium 130 and stable * Creatinine 1.3 and GFR 55 * S/P I&D of right ramos with Dr. Cazares on 07/20/2020 * Purulent bloody drainage * No cultures sent due to patient being on abx for several days * O2 down to 4L * Thoracentesis cultures show no growth * Continue current treatment plan * Legs continue to improve - Plan Plan:: Bilateral cellulitis/Stasis Dermatitis, improving Dependant edema Small hematoma/abscess on right ramos Leukocytosis Hypoxemia S/P Right ramos I&D -Monitor WBC and CRP daily -Vancomycin with pharmacy to dose -> discontinue after today and switch to PO doxy tomorrow -Rocephin Q24hr stopping after today and switching to PO Keflex tomorrow -Monitor leg inflammation -On IV Lasix to 40 mg daily -On 4L O2 today Failure to thrive Hypokalemia, resolved Hyponatremia, continues to improve Lactic Acidosis, likely resolved Medical non-compliance Hx/o hypomagnesemia Hypoalbuminemia, unchanged Relative Hypotension -Consult CM/SW -CONCRETE SPREADER cognitive evaluation - re-order now that patent is more stable -Will likely need placement at discharge -Services Tech consult tomorrow -Monitor electrolytes/magnesium -Supplement magnesium -On Midodrine 5 mg po TID History of ETOH abuse Hepatic encephalopathy End-stage ETOH related cirrhosis Elevated INR Elevated Bilirubin Hx/o esophageal varices Thrombocytopenia Macrocytic Normochromic Anemia Elevated serum ammonia Hyperlactatemia Hallucinations -Continue Lactulose 30mg TID and Lasix 40 mg po daily -Continue spironolactone 50mg daily -Pharmacological DVT prophylaxis contraindicated -Monitor CBC -Continue folic acid, MV, thiamine supplementation -Low protein diet -Consult rigging loft repairer -Due to end-stage cirrhosis we can expect BPs on the lower side -hyperlactatemia is likely 2/2 to end-stage liver disease and chronic ETOH abuse. Procalcitonin was 0.05 ruling out sepsis. Depression -Dr. Powell consult - recommends monitoring -Discontinue Effexor Tobacco use disorder -Cessation counseling at discharge -Nicotine patches Code status: DNR/DNI PCP: Dr. Mccollum DVT prophylaxis: Pharmacological prophylaxis contraindicated due to significant esophageal varices history, Elevated INR, thrombocytopenia. Mechanical prophylaxis contraindicated due to bilateral LE cellulitis, dependant LE edema. Disposition: Patient admitted due to cellulitis, electrolyte abnormalities, failure to thrive and need for placement. Social: Patient reportedly lives in an apartment. [facility] is following patient. Patient has history of leaving water running and forgetting to turn of burner. Per ED note apartment is very unkempt and there are concerns for patient safety. SW/CM consulted. Prognosis: Overall poor prognosis due to end-stage ETOH cirrhosis. LOS >96 HRS due to need for placement, respiratory failure treatment, continued IV abx
[2020-07-21] MEDS: Magnesium Oxide 400 MG Tab PO SCH ×2 (09:20→20:19)
[2020-07-21] MEDS: Thiamine 100 MG Tab PO SCH (09:20)
[2020-07-21] MEDS: Spironolactone 100 MG Tab PO SCH (09:20)
[2020-07-21] MEDS: Multivitamins,Therapeutic Tab PO SCH (09:20)
[2020-07-21] MEDS: Lactulose Soln 10 GM/15 ML 30 ML UD Cup PO SCH ×3 (09:20→20:20)
[2020-07-21] MEDS: Folic Acid 1 MG Tab PO SCH (09:20)
[2020-07-21] MEDS: Furosemide 40 MG/4 ML VIAL IVPUSH SCH (09:21)
[2020-07-21] MEDS: cefTRIAXone 2 GM in Sodium Chloride 0.9% 100 ML IV SCH (15:10)
[2020-07-21] MEDS: Nicotine 14 MG/24 Hr Patch TRDERM SCH (15:16)
[2020-07-21] MEDS: Acetaminophen 325 MG Tab PO PRN (20:19)
[2020-07-21] MEDS: Haloperidol 1 MG Tab PO SCH (20:19)
[2020-07-22] MEDS: Midodrine 5 MG Tab PO SCH ×3 (06:48→18:58)
--- NOTE | 2020-07-22 07:22 | PCM.PN ---
- General Info Date of Service: 07/22/20 Admission Dx/Problem (Free Text): Admission Diagnosis/Problem Admission Diagnosis/Problem Cellulitis Subjective Update: In to see Mandeep. He is lying in bed and looks comfortable. When asked he states that he has pain all over, but especially in his back, abdomen, and legs. He was started on Haldol by Dr. Powell, psychiatry and has been tolerating this well. He has had episodes of hallucinations while in our care reporting seeing squirrels in his room. Nursing states he has been talking to someone who is not there. Throughout his stay he has been quite confused, although at times this is not immediately evident. While this may be related to his cirrhosis and hepatic encephalopathy, his ammonia has been well within normal limits and this still has not affected his mental status. He has been alert and knows his full name and birthday but he tends to get confused with where he is and what time of year it is. He was unsure if he was in the hospital but he was fairly confident he was in [facility]. He will often start a conversation that makes sense but then will frequently ask questions or have comments that are bizarre and completely unrelated to what we are talking about. Speech-language c ognitive evaluation has been ordered. Per social work, there is serious concerns about patient's ability to return home and live by himself. They state that he has been known to leave his water on. Multiple times he has been found with the oven or stovetop burners on. He also has reportedly been found outside wandering in a bathrobe with socks on and confused. In my dealings with the patient I do not believe that he is able to safely return home alone. RN OCCUPATIONAL HEALTH cognitive evaluation should shed some more light on this. There are concerns about patient's ability to complete ADLs. Per ED provider and patient he has not been taking any of his medications because he cannot remember to take these. Given the patient's significant chronic health conditions, this is a grave concern. Social work has been in contact with Adult Protective Services. PT/OT has been recommending SNF placement. Unfortunate there has been some difficulty with this as patient does not have a guardian and is estranged from his family. Otherwise, patient cellulitis continues to improve. Labs continue to improve. Respiratory status has been improving to stable and he is tolerating his nasal cannula well. He has been working with PT/OT. He does have an incentive spirometer and nursing/RT has been ensuring he utilizes this. As noted ammonia has trended down with patient's increased lactulose. Patient has had minimal p.o. intake and dietary is following. They have been changing his supplements trying to find something that he likes. He is tolerating p.o. antibiotics well. Functional Status: Reports: Pain Controlled, Tolerating Diet, Ambulating, Urinating. Denies: New Symptoms - Review of Systems General: Reports: Weakness. Denies: Fever, Fatigue, Malaise, Chills HEENT: Reports: No Symptoms. Denies: Headaches, Sore Throat Pulmonary: Reports: Shortness of Breath, Cough. Denies: Pleuritic Chest Pain, Sputum, Wheezing Cardiovascular: Reports: Dyspnea on Exertion. Denies: Chest Pain, Palpitations Gastrointestinal: Reports: Abdominal Pain. Denies: Constipation, Diarrhea, Nausea, Vomiting Genitourinary: Reports: No Symptoms. Denies: Pain Musculoskeletal: Reports: Back Pain, Leg Pain, Other (Generalized myalgias) Skin: Reports: No Symptoms. Denies: Cyanosis Neurological: Reports: Confusion, Weakness Psychiatric: Reports: No Symptoms - Patient Data Vitals - Most Recent: Last Vital Signs Temp 98.2 F 07/22/20 05:12 Pulse 79 07/22/20 05:13 Resp 20 07/22/20 05:12 BP 99/47 L 07/22/20 05:13 Pulse Ox 90 L 07/22/20 06:00 Weight - Most Recent: 193 lb 1.6 oz I&O - Last 24 Hours: Intake & Output 07/21/20 07/22/20 07/22/20 22:59 06:59 14:59 Intake Total 1000 1250 Output Total 200 Balance 1000 1050 Lab Results Last 24 Hours: Laboratory Results - last 24 hr 07/22/20 07/22/20 07/22/20 Range/Units 06:01 06:01 06:01 WBC 8.09 (4.23-9.07) K/mm3 RBC 2.75 L (4.63-6.08) M/mm3 Hgb 9.2 L (13.7-17.5) gm/dl Hct 27.3 L (40.1-51.0) % MCV 99.3 H (79.0-92.2) fl MCH 33.5 H (25.7-32.2) pg MCHC 33.7 (32.2-35.5) g/dl RDW Std Deviation 71.5 H (35.1-43.9) fL Plt Count 63 L (163-337) K/mm3 MPV 10.2 (9.4-12.3) fl Neut % (Auto) 77.3 H (34.0-67.9) % Lymph % (Auto) 12.2 L (21.8-53.1) % [place] % (Auto) 9.3 (5.3-12.2) % Eos % (Auto) 0.5 L (0.8-7.0) Baso % (Auto) 0.1 (0.1-1.2) % Neut # (Auto) 6.25 H (1.78-5.38) K/mm3 Lymph # (Auto) 0.99 L (1.32-3.57) K/mm3 [place] # (Auto) 0.75 (0.30-0.82) K/mm3 Eos # (Auto) 0.04 (0.04-0.54) K/mm3 Baso # (Auto) 0.01 (0.01-0.08) K/mm3 Manual Slide Review Abnormal smear Sodium 133 L (136-145) mEq/L Potassium 4.1 (3.5-5.1) mEq/L Chloride 100 (98-107) mEq/L Carbon Dioxide 23 (21-32) mEq/L Anion Gap 14.1 (5-15) BUN 33 H (7-18) mg/dL Creatinine 1.3 (0.7-1.3) mg/dL Est Cr Clr Drug Dosing 55.01 mL/min Estimated GFR (MDRD) 55 (>60) mL/min BUN/Creatinine Ratio 25.4 H (14-18) Glucose 110 (80-115) mg/dL Calcium 8.7 (8.5-10.1) mg/dL Magnesium 2.4 (1.8-2.4) mg/dl Total Bilirubin 4.7 H (0.2-1.0) mg/dL AST 117 H (15-37) U/L ALT 93 H (16-63) U/L Alkaline Phosphatase 82 (46-116) U/L Ammonia 28 (11-32) umol/L Total Protein 6.1 L (6.4-8.2) g/dl Albumin 1.8 L (3.4-5.0) g/dl Globulin 4.3 gm/dL Albumin/Globulin Ratio 0.4 L (1-2) Luis Results Last 24 Hours: Microbiology 07/18/20 15:31 Streptococcus pneumoniae Antigen (M - Final Urine 07/19/20 12:05 Gram Stain - Final Pleural Fluid Body Fluid Culture - Preliminary NO GROWTH AFTER 2 DAYS 07/17/20 09:22 Gram Stain - Final Leg, Right Anaerobic Culture - Preliminary NO GROWTH AFTER 4 DAYS Med Orders - Current: Current Medications Acetaminophen (Tylenol) 650 mg PO Q4H PRN PRN Reason: Pain/Fever Last Admin: 07/21/20 20:19 Dose: 650 mg Documented by: Cephalexin (Keflex) 500 mg PO Q8H REPLACED BY [facility] Doxycycline Hyclate (Vibramycin) 100 mg PO BID REPLACED BY [facility] Folic Acid (Folic Acid) 1 mg PO DAILY REPLACED BY [facility] Last Admin: 07/21/20 09:20 Dose: 1 mg Documented by: Furosemide (Lasix) 40 mg IVPUSH DAILY REPLACED BY [facility] Last Admin: 07/21/20 09:21 Dose: 40 mg Documented by: Haloperidol (Haldol) 2 mg PO BEDTIME REPLACED BY [facility] Last Admin: 07/21/20 20:19 Dose: 2 mg Documented by: Lactulose (Cephulac) 30 gm PO TID REPLACED BY [facility] Last Admin: 07/21/20 20:20 Dose: 30 gm Documented by: Magnesium Oxide (Magnesium Oxide) 800 mg PO 1100 REPLACED BY [facility] Melatonin (Melatonin) 3 mg PO BEDTIME PRN PRN Reason: insomnia Last Admin: 07/21/20 00:05 Dose: 3 mg Documented by: Midodrine (Midodrine) 5 mg PO TIDAC REPLACED BY [facility] Last Admin: 07/22/20 06:48 Dose: 5 mg Documented by: Miscellaneous Information (Remove Patch) 0 ea TRDERM Q24H REPLACED BY [facility] Last Admin: 07/21/20 15:19 Dose: 14 ea Documented by: Multivitamins (Thera) 1 each PO DAILY REPLACED BY [facility] Last Admin: 07/21/20 09:20 Dose: 1 each Documented by: Nicotine (Habitrol) 14 mg TRDERM Q24H REPLACED BY [facility] Last Admin: 07/21/20 15:16 Dose: 14 mg Documented by: Oxycodone HCl (Oxycodone) 5 mg PO Q6H PRN PRN Reason: Pain (moderate 4-6) Last Admin: 07/21/20 05:35 Dose: 5 mg Documented by: Oxycodone HCl (Oxycodone) 10 mg PO Q6H PRN PRN Reason: Pain (severe 7-10) Last Admin: 07/21/20 05:48 Dose: 5 mg Documented by: Spironolactone (Aldactone) 100 mg PO DAILY REPLACED BY [facility] Last Admin: 07/21/20 09:20 Dose: 100 mg Documented by: Thiamine HCl (Vitamin B-1) 100 mg PO DAILY REPLACED BY [facility] Last Admin: 07/21/20 09:20 Dose: 100 mg Documented by: Discontinued Medications Alprazolam (Xanax) 1 mg PO BEDTIME ONE Stop: 07/12/20 21:01 Last Admin: 07/12/20 21:24 Dose: 1 mg Documented by: Alprazolam (Xanax) 1 mg PO BEDTIME REPLACED BY [facility] Dexamethasone (Dexamethasone) 6 mg PO Q24H REPLACED BY [facility] Stop: 07/27/20 16:01 Last Admin: 07/19/20 15:51 Dose: 6 mg Documented by: Folic Acid (Folic Acid) 1 mg PO DAILY REPLACED BY [facility] Furosemide (Lasix) 40 mg IVPUSH NOW ONE Stop: 07/12/20 19:17 Last Admin: 07/12/20 19:38 Dose: 40 mg Documented by: Furosemide (Lasix) 40 mg IVPUSH NOW ONE Stop: 07/13/20 09:15 Last Admin: 07/13/20 09:42 Dose: 40 mg Documented by: Furosemide (Lasix) 40 mg IVPUSH DAILY REPLACED BY [facility] Furosemide (Lasix) 20 mg IVPUSH DAILY REPLACED BY [facility] Last Admin: 07/14/20 10:10 Dose: 20 mg Documented by: Sodium Chloride (Normal Saline) 1,000 mls @ 125 mls/hr IV ASDIRECTED REPLACED BY [facility] Last Admin: 07/12/20 17:03 Dose: 125 mls/hr Documented by: Vancomycin HCl 1.5 gm/ Sodium (Chloride) 500 mls @ 250 mls/hr IV ONETIME ONE Stop: 07/12/20 19:21 Last Admin: 07/12/20 20:07 Dose: 250 mls/hr Documented by: Vancomycin HCl 1 gm/ Sodium (Chloride) 250 mls @ 250 mls/hr IV Q12H REPLACED BY [facility] Last Admin: 07/14/20 23:00 Dose: 250 mls/hr Documented by: Ceftriaxone Sodium 2 gm/ (Sodium Chloride) 100 mls @ 200 mls/hr IV Q24H REPLACED BY [facility] Last Admin: 07/14/20 14:38 Dose: 200 mls/hr Documented by: Sodium Chloride (Normal Saline) 1,000 mls @ 100 mls/hr IV ASDIRECTED REPLACED BY [facility] Stop: 07/15/20 00:59 Last Admin: 07/14/20 00:04 Dose: 100 mls/hr Documented by: Vancomycin HCl 1 gm/ Sodium (Chloride) 250 mls @ 250 mls/hr IV Q24H REPLACED BY [facility] Stop: 07/21/20 23:00 Last Admin: 07/21/20 20:20 Dose: 250 mls/hr Documented by: Ceftriaxone Sodium 2 gm/ (Sodium Chloride) 100 mls @ 200 mls/hr IV Q24H REPLACED BY [facility] Stop: 07/21/20 17:00 Last Admin: 07/21/20 15:10 Dose: 200 mls/hr Documented by: Sodium Chloride (Normal Saline) 100 mls @ 75 mls/hr IV ASDIRECTED REPLACED BY [facility] Stop: 07/18/20 17:00 Azithromycin 500 mg/ Sodium (Chloride) 250 mls @ 250 mls/hr IV Q24H REPLACED BY [facility] Last Admin: 07/20/20 15:19 Dose: 250 mls/hr Documented by: Remdesivir 200 mg/ Sodium (Chloride) 250 mls @ 250 mls/hr IV ONETIME ONE Stop: 07/18/20 17:29 Last Admin: 07/18/20 17:55 Dose: 250 mls/hr Documented by: Remdesivir 100 mg/ Sodium (Chloride) 100 mls @ 100 mls/hr IV Q24H REPLACED BY [facility] Stop: 07/22/20 17:29 Last Admin: 07/19/20 17:14 Dose: 100 mls/hr Documented by: Iopamidol (Isovue-370 (76%)) 100 ml IVPUSH ONETIME ONE Stop: 07/18/20 13:38 Last Admin: 07/18/20 16:43 Dose: Not Given Documented by: Lactulose (Cephulac) 20 gm PO TID REPLACED BY [facility] Last Admin: 07/13/20 15:46 Dose: Not Given Documented by: Lactulose (Cephulac) 20 gm PO TID REPLACED BY [facility] Last Admin: 07/15/20 10:21 Dose: 20 gm Documented by: Lidocaine/Epinephrine (Xylocaine 1% With Epinephrine 1:100,000) 20 ml INJECT O NETIME ONE Stop: 07/20/20 13:31 Last Admin: 07/20/20 14:59 Dose: Not Given Documented by: Magnesium Oxide (Magnesium Oxide) 400 mg PO BID REPLACED BY [facility] Stop: 07/21/20 23:00 Last Admin: 07/21/20 20:19 Dose: 400 mg Documented by: Non-Formulary Medication (Magnesium Oxide [Magnesium Oxide]) 400 mg PO DAILY REPLACED BY [facility] Ondansetron HCl (Zofran) 4 mg IV Q6H PRN PRN Reason: Nausea/Vomiting Oxycodone HCl (Oxycodone) 5 - 10 mg PO Q6H PRN PRN Reason: Pain Potassium Chloride (Klor-Con M20) 40 meq PO TID REPLACED BY [facility] Stop: 07/14/20 09:01 Last Admin: 07/14/20 10:09 Dose: 40 meq Documented by: Sodium Chloride (Saline Flush) 10 ml FLUSH ONETIME PRN PRN Reason: IV FLUSH Stop: 07/18/20 17:00 Spironolactone (Aldactone) 25 mg PO ONETIME ONE Stop: 07/12/20 19:18 Last Admin: 07/12/20 19:38 Dose: 25 mg Documented by: Spironolactone (Aldactone) 25 mg PO ONETIME ONE Stop: 07/13/20 09:16 Last Admin: 07/13/20 09:50 Dose: 25 mg Documented by: Spironolactone (Aldactone) 25 mg PO DAILY REPLACED BY [facility] Spironolactone (Aldactone) 50 mg PO DAILY REPLACED BY [facility] Last Admin: 07/15/20 10:20 Dose: 50 mg Documented by: Thiamine HCl (Vitamin B-1) 100 mg PO DAILY REPLACED BY [facility] Vancomycin HCl (Pharmacy To Dose - Vancomycin) 1 dose .XX ASDIRECTED REPLACED BY [facility] Stop: 07/21/20 23:00 Vancomycin HCl (Vancocin) Confirm Administered Dose 1 gm .ROUTE .STK-MED ONE Stop: 07/17/20 21:34 Last Admin: 07/17/20 23:07 Dose: Not Given Documented by: Venlafaxine HCl (Effexor) 37.5 mg PO BID MELISAS - Exam Quality Assessment: Supplemental Oxygen. No: Urine Catheter, DVT Prophylaxis (contraindicated ) General: Alert, Cooperative, No Acute Distress. No: Oriented HEENT: Pupils Equal, Pupils Reactive Neck: Supple, Trachea Midline Lungs: Normal Respiratory Effort, Decreased Breath Sounds GI/Abdominal Exam: Normal Bowel Sounds, Soft, Non-Tender, Distended (Male) Exam: Deferred Extremities: Leg Pain (improving ), Increased Warmth (improving ), Redness (improving ), Other (Bandage on right ramos 2/2 I&D) Skin: Warm, Dry, Intact Wound/Incisions: Dressing Dry and Intact Neurological: No New Focal Deficit Psy/Mental Status: Alert Sepsis Event Note - Evaluation Sepsis Screening Result: No Definite Risk - Focused Exam Vital Signs: Vital Signs Temp Pulse Resp BP Pulse Ox Pulse Ox 07/22/20 06:00 90 L 07/22/20 05:13 79 99/47 L 91 L 07/22/20 05:12 98.2 F 81 20 93/50 L 91 L 07/21/20 23:09 97.2 F 80 23 H 97/48 L 90 L 07/21/20 19:53 91 L 07/21/20 19:43 97.3 F 07/21/20 19:37 71 28 H 97/55 L 93 L - Problem List & Annotations (1) Tobacco use disorder SNOMED Code(s): 870273695 Code(s): F17.200 - NICOTINE DEPENDENCE, UNSPECIFIED, UNCOMPLICATED Status: Chronic Priority: Medium Current Visit: No (2) History of alcohol abuse SNOMED Code(s): 177950200 Code(s): F10.11 - ALCOHOL ABUSE, IN REMISSION Status: Chronic Priority: Medium Current Visit: No (3) Esophageal varices without bleeding SNOMED Code(s): 93007631 Code(s): I85.00 - ESOPHAGEAL VARICES WITHOUT BLEEDING Status: Chronic Priority: Medium Current Visit: No Qualifiers: Esophageal varices type: unspecified type Qualified Code(s): I85.00 - Esophageal varices without bleeding (4) Failure to thrive SNOMED Code(s): 43271871 Code(s): LTY6240 - Status: Acute Priority: High Current Visit: Yes Qualifiers: Failure to thrive age range: in adult Qualified Code(s): R62.7 - Adult failure to thrive (5) Difficulty walking SNOMED Code(s): 684169356 Code(s): R26.2 - DIFFICULTY IN WALKING, NOT ELSEWHERE CLASSIFIED Status: Acute Priority: High Current Visit: Yes (6) Medical non-compliance SNOMED Code(s): 510186439 Code(s): Z91.19 - PATIENT'S NONCOMPLIANCE W OTH MEDICAL TREATMENT AND REGIMEN Status: Chronic Priority: High Current Visit: Yes (7) Serum ammonia increased SNOMED Code(s): 4478722 Code(s): E72.20 - DISORDER OF UREA CYCLE METABOLISM, UNSPECIFIED Status: Chronic Priority: High Current Visit: Yes (8) Anemia SNOMED Code(s): 282317226 Code(s): D64.9 - ANEMIA, UNSPECIFIED Status: Chronic Current Visit: Yes Qualifiers: Anemia type: bone marrow failure Bone marrow failure anemia type: unspecified bone marrow failure Qualified Code(s): D61.9 - Aplastic anemia, unspecified (9) Bilateral lower leg cellulitis SNOMED Code(s): 158147973 Code(s): L03.116 - CELLULITIS OF LEFT LOWER LIMB; L03.115 - CELLULITIS OF RIGHT LOWER LIMB Status: Acute Priority: High Current Visit: Yes (10) Cirrhosis of liver SNOMED Code(s): 97599983 Code(s): K74.60 - UNSPECIFIED CIRRHOSIS OF LIVER Status: Chronic Priority: High Current Visit: Yes Qualifiers: Hepatic cirrhosis type: alcoholic cirrhosis Ascites presence: with ascites Qualified Code(s): K70.31 - Alcoholic cirrhosis of liver with ascites (11) Dependent edema SNOMED Code(s): 819347892 Code(s): R60.9 - EDEMA, UNSPECIFIED Status: Acute Priority: High Current Visit: Yes (12) Elevated INR SNOMED Code(s): 507742918 Code(s): R79.1 - ABNORMAL COAGULATION PROFILE Status: Chronic Priority: Medium Current Visit: Yes (13) Hypokalemia SNOMED Code(s): 37696647 Code(s): E87.6 - HYPOKALEMIA Status: Resolved Priority: High Current Visit: Yes (14) Hyponatremia SNOMED Code(s): 42867887 Code(s): E87.1 - HYPO-OSMOLALITY AND HYPONATREMIA Status: Acute Priority: High Current Visit: Yes (15) Thrombocytopenia SNOMED Code(s): 616855573 Code(s): D69.6 - THROMBOCYTOPENIA, UNSPECIFIED Status: Chronic Priority: High Current Visit: Yes (16) Depression SNOMED Code(s): 60710180 Code(s): F32.9 - MAJOR DEPRESSIVE DISORDER, SINGLE EPISODE, UNSPECIFIED Status: Chronic Priority: Medium Current Visit: Yes Qualifiers: Depression Type: other depression Qualified Code(s): F32.89 - Other specified depressive episodes (17) Hepatic encephalopathy SNOMED Code(s): 55360554 Code(s): K72.90 - HEPATIC FAILURE, UNSPECIFIED WITHOUT COMA Status: Chronic Priority: High Current Visit: Yes (18) Lactic acidosis SNOMED Code(s): 15779792 Code(s): E87.2 - ACIDOSIS Status: Acute Priority: High Current Visit: Yes (19) Hypoxia SNOMED Code(s): 025072013 Code(s): R09.02 - HYPOXEMIA Status: Acute Priority: High Current Visit: Yes (20) Elevated d-dimer SNOMED Code(s): 727712322 Code(s): R79.89 - OTHER SPECIFIED ABNORMAL FINDINGS OF BLOOD CHEMISTRY Status: Acute Priority: High Current Visit: Yes (21) Respiratory failure SNOMED Code(s): 681188176 Code(s): J96.90 - RESPIRATORY FAILURE, UNSP, UNSP W HYPOXIA OR HYPERCAPNIA Status: Acute Priority: High Current Visit: Yes Qualifiers: Chronicity: acute Respiratory failure complication: hypoxia Qualified Code(s): J96.01 - Acute respiratory failure with hypoxia (22) Suspected COVID-19 virus infection SNOMED Code(s): 630730007 Code(s): Z20.828 - CONTACT W AND EXPOSURE TO OTH VIRAL COMMUNICABLE DISEASES Status: Acute Priority: High Current Visit: Yes (23) S/P thoracentesis SNOMED Code(s): 083531811, 46382126, 767456144 Code(s): Z98.890 - OTHER SPECIFIED POSTPROCEDURAL STATES Status: Acute Priority: Low Current Visit: Yes (24) Status post incision and drainage SNOMED Code(s): 083334453, 937534747 Code(s): Z98.890 - OTHER SPECIFIED POSTPROCEDURAL STATES Status: Acute Priority: Medium Current Visit: Yes (25) Hallucination, visual SNOMED Code(s): 25380170 Code(s): R44.1 - VISUAL HALLUCINATIONS Status: Acute Priority: High Current Visit: Yes - Problem List Review Problem List Initiated/Reviewed/Updated: Yes - My Orders Last 24 Hours: My Active Orders 07/21/20 08:49 VTE Mechanical Contraindications [AST] Click to Edit 07/21/20 10:08 Patient Status [ADT] Routine 07/21/20 10:40 RN OCCUPATIONAL HEALTH Eval and Treat [RN OCCUPATIONAL HEALTH Evaluation and Treatment] [CONS] Routine 07/22/20 09:00 Doxycycline [Vibramycin] 100 mg PO BID 07/22/20 11:00 Magnesium Oxide 800 mg PO 1100 07/22/20 14:00 cephALEXin [Keflex] 500 mg PO Q8H - Assessment Assessment:: 07/13/2020 - Day of Admission -64 yo Male who presents to ED on 07/12/20 with confusion and bilateral cellulitis -History of hepatic encephalopathy, End stage liver disease, ETOH abuse, Tobacco use, Esophageal varices with banding, depression, dependant edema -Patient admits to ED provider that he has not been taking his medications because he forgets -Denies any ETOH use for past 2 months (ETOH in ED was 0.00) -Kept in ED overnight due to bed shortage statewide and us being on diversion -Started on Vancomycin in ED foe cellulitis -Given lactulose, spironolactone, lasix, IV fluids, Xanax, vancomycin in ED -No WBC in ED, although likely cannot mount immunologic defense due to alcoholic bone marrow suppression -Sepsis criteria: -Bilateral cellulitis, No tachycardia, tachypnea, WBC, or fever -Hypotension likely 2/2 end stage liver failure, Lactate >2 likely 2/2 chronic ETOH abuse, Bilirubin >2 chronically, Platelets <100 chronically, INR elevated 2/2 End stage liver disease -Does not meet criteria -Per ED provider social work states patient apartment was very unkempt -Social work reports patient has been known to leave water running and burners on in apartment. Patient is being evicted. 07/14/2020 * Small improvement in cellulitis * Procalcitonin was negative at 0.05 * White count 6.1 and CRP 2.1 * Lactic acid is chronically elevated due to liver disease at 2.6. Total bilirubin elevated at 7.8 and direct bilirubin 3.8 * Oxygen requirement has increased to 4 L/min * Sodium chronically low at 131 07/15/2020 * Continued improvement in cellulitis * WBC remains WNL at 7.19 with CRP of 2.2 * Oxygen requirement has decreased to 2L * Blood cultures negative thus far * Sodium improved to 133 * Potassium 4.3 * Dr. Powell saw patient and recommends withholding patients effexor and monitoring * Patient remains quite confused 07/16/20 * Continue current treatment * Routine AM labs with Ammonia * Midodrine 5 mg po TIDAC * Remains confused with hallucinations (seeing squirrels inside his room) * May consider anti-psychotic medications if needed * Need Tele-psych consult 07/17/20 * Continue current treatment: Rocephin and Vancomycin * Routine AM labs * Offered I&D but patient refused * Wound culture on right ramos * Remains confused with hallucinations (seeing squirrels inside his room) * May consider anti-psychotic medications if needed * Need Tele-psych follow up * LOS > 96 HRS due to need for placement 07/18/20 * WBC improved to 10.41 from 11.68 * CRP 9.1 from 5.7 * Creatinine 1.4 with GFR of 51 * Requiring 6L O2 via NC * Wound culture showing no growth * MELD-Na score on admission calculated to be 29 points - 27-32% estimated 90- day mortality * D-Dimer 7.29 * BNP 1009 * INR 2.33 * CTA shows pleural effusions and ground glass opacities concerning for viral/atypical pneumonia\ * Discussed plan with Dr. Castro - will start covid-19 treatment protocol 07/19/2020 * WBC 8.31 * CRP Up to 11.4 * Ferritin 513 * LDH 475 * Procalcitonin 0.43 * Creatinine 1.5, GFR 47 * INR 2.24 * On high flow oxygen * Thoracentesis performed today by Dr. Shipley with just over 1L clear straw colored output 07/20/2020 * Echo results show: * 1. LVEF, by visual estimation, is 65-70% * 2. Hyperdynamic left ventricular systolic function * 3. Verbally normal right ventricular systolic function and size, not well visualized. * 4. The aortic valve is not well visualized. * 5. Trace mitral valve regurgitation * 6. Trace tricuspid valve regurgitation. * 7. The right ventricular systolic pressure is unable to be determined. * 8. There is a pleural effusion * WBC 9.58 * CRP 10.2 * Sodium 130 and stable * Creatinine 1.5 and GFR 47 and stable * Awaiting thoracentesis culture * VRP negative * Covid-19 negative (4th time) * Discontinued COVID-19 treatment * Discontinue isolation precautions once off of high flow 07/21/2020 * WBC 10.17 * CRP 8.4 * Sodium 130 and stable * Creatinine 1.3 and GFR 55 * S/P I&D of right ramos with Dr. Cazares on 07/20/2020 * Purulent bloody drainage * No cultures sent due to patient being on abx for several days * O2 down to 4L * Thoracentesis cultures show no growth * Continue current treatment plan * Legs continue to improve - Plan Plan:: Bilateral cellulitis/Stasis Dermatitis, improving Dependant edema Small hematoma/abscess on right ramos Leukocytosis Hypoxemia S/P Right ramos I&D -Monitor WBC and CRP daily -Stop vancomycin and start doxycycline today -Stop Rocephin and start keflex today -Monitor leg inflammation -On IV Lasix 40 mg daily -On 4L O2 today Failure to thrive Hypokalemia, resolved Hyponatremia, continues to improve Lactic Acidosis, likely resolved Medical non-compliance Hx/o hypomagnesemia Hypoalbuminemia, unchanged Relative Hypotension -Consult CM/SW -RN OCCUPATIONAL HEALTH cognitive evaluation - re-order now that patent is more stable -Will likely need placement at discharge -System Configuration Specialist consult tomorrow -Monitor electrolytes/magnesium -Supplement magnesium -On Midodrine 5 mg po TID History of ETOH abuse Hepatic encephalopathy End-stage ETOH related cirrhosis Elevated INR Elevated Bilirubin Hx/o esophageal varices Thrombocytopenia Macrocytic Normochromic Anemia Elevated serum ammonia Hyperlactatemia -Continue Lactulose 30mg TID and Lasix 40 mg po daily -Continue spironolactone 50mg daily -Pharmacological DVT prophylaxis contraindicated -Monitor CBC -Continue folic acid, MV, thiamine supplementation -Low protein diet -Consult software release engineer -Due to end-stage cirrhosis we can expect BPs on the lower side -hyperlactatemia is likely 2/2 to end-stage liver disease and chronic ETOH abuse. Procalcitonin was 0.05 ruling out sepsis. Depression Hallucinations -Dr. Powell consult - recommends starting Haldol -Discontinue Effexor Tobacco use disorder -Cessation counseling at discharge -Nicotine patches Code status: DNR/DNI PCP: Dr. Mccollum DVT prophylaxis: Pharmacological prophylaxis contraindicated due to significant esophageal varices history, Elevated INR, thrombocytopenia. Mechanical prophylaxis contraindicated due to bilateral LE cellulitis, dependant LE edema. Disposition: Patient admitted due to cellulitis, electrolyte abnormalities, failure to thrive and need for placement. Social: Patient reportedly lives in an apartment. [facility] Product Safety Administrator is following patient. Patient has history of leaving water running and forgetting to turn of burner. Per ED note apartment is very unkempt and there are concerns for patient safety. SW/CM consulted. Prognosis: Overall poor prognosis due to end-stage ETOH cirrhosis. LOS >96 HRS due to need for placement, respiratory failure treatment, continued IV abx
[2020-07-22] MEDS: Spironolactone 100 MG Tab PO SCH (08:21)
[2020-07-22] MEDS: Lactulose Soln 10 GM/15 ML 30 ML UD Cup PO SCH ×3 (08:21→20:45)
[2020-07-22] MEDS: Thiamine 100 MG Tab PO SCH (08:21)
[2020-07-22] MEDS: Folic Acid 1 MG Tab PO SCH (08:21)
[2020-07-22] MEDS: Doxycycline 100 MG Cap PO SCH ×2 (08:22→20:44)
[2020-07-22] MEDS: Multivitamins,Therapeutic Tab PO SCH (08:22)
[2020-07-22] MEDS: Furosemide 40 MG/4 ML VIAL IVPUSH SCH (08:22)
[2020-07-22] MEDS: oxyCODONE 5 MG Tab PO PRN ×2 (10:54→21:00)
[2020-07-22] MEDS: Magnesium Oxide 400 MG Tab PO SCH (10:54)
[2020-07-22] MEDS: Nicotine 14 MG/24 Hr Patch TRDERM SCH (14:32)
[2020-07-22] MEDS: Cephalexin 500 MG Cap PO SCH ×3 (14:32→21:43)
[2020-07-22] MEDS: Haloperidol 1 MG Tab PO SCH (20:44)
[2020-07-23] MEDS: Cephalexin 500 MG Cap PO SCH ×3 (06:21→21:41)
[2020-07-23] MEDS: Midodrine 5 MG Tab PO SCH ×3 (06:21→16:19)
[2020-07-23] MEDS: Acetaminophen 325 MG Tab PO PRN ×2 (06:22→13:33)
[2020-07-23] MEDS: Lactulose Soln 10 GM/15 ML 30 ML UD Cup PO SCH ×3 (08:26→21:40)
[2020-07-23] MEDS: Furosemide 40 MG/4 ML VIAL IVPUSH SCH (08:27)
[2020-07-23] MEDS: Doxycycline 100 MG Cap PO SCH ×2 (08:27→21:43)
[2020-07-23] MEDS: Multivitamins,Therapeutic Tab PO SCH (08:27)
[2020-07-23] MEDS: Spironolactone 100 MG Tab PO SCH (08:27)
[2020-07-23] MEDS: Folic Acid 1 MG Tab PO SCH (08:28)
[2020-07-23] MEDS: Thiamine 100 MG Tab PO SCH (08:28)
[2020-07-23] MEDS: oxyCODONE 5 MG Tab PO PRN ×2 (09:30→22:01)
[2020-07-23] MEDS: Magnesium Oxide 400 MG Tab PO SCH (11:33)
[2020-07-23] MEDS: Nicotine 14 MG/24 Hr Patch TRDERM SCH (13:30)
--- NOTE | 2020-07-23 14:29 | PCM.PN ---
- General Info Date of Service: 07/23/20 Admission Dx/Problem (Free Text): Admission Diagnosis/Problem Admission Diagnosis/Problem Cellulitis Subjective Update: Dalton is doing well. He was having breakfast when I saw him this morning without any complaints. He appeared less confused. Functional Status: Reports: Pain Controlled - Review of Systems General: Reports: No Symptoms HEENT: Reports: No Symptoms Pulmonary: Reports: No Symptoms Cardiovascular: Reports: No Symptoms Gastrointestinal: Reports: No Symptoms Neurological: Reports: No Symptoms Psychiatric: Reports: No Symptoms - Patient Data Vitals - Most Recent: Last Vital Signs Temp 98.1 F 07/23/20 08:00 Pulse 84 07/23/20 08:00 Resp 20 07/23/20 08:00 BP 102/56 L 07/23/20 08:00 Pulse Ox 93 L 07/23/20 08:00 Weight - Most Recent: 196 lb 8 oz I&O - Last 24 Hours: Intake & Output 07/22/20 07/23/20 07/23/20 22:59 06:59 14:59 Intake Total 1060 2000 420 Output Total 200 300 Balance 860 1700 420 Luis Results Last 24 Hours: Microbiology 07/19/20 12:05 Gram Stain - Final Pleural Fluid Body Fluid Culture - Preliminary NO GROWTH AFTER 4 DAYS 07/17/20 09:22 Gram Stain - Final Leg, Right Anaerobic Culture - Preliminary NO GROWTH AFTER 6 DAYS Med Orders - Current: Current Medications Acetaminophen (Tylenol) 650 mg PO Q4H PRN PRN Reason: Pain/Fever Last Admin: 07/23/20 13:33 Dose: 650 mg Documented by: Cephalexin (Keflex) 500 mg PO Q8H [facility] Last Admin: 07/23/20 13:30 Dose: 500 mg Documented by: Doxycycline Hyclate (Vibramycin) 100 mg PO BID [facility] Last Admin: 07/23/20 08:27 Dose: 100 mg Documented by: Folic Acid (Folic Acid) 1 mg PO DAILY [facility] Last Admin: 07/23/20 08:28 Dose: 1 mg Documented by: Furosemide (Lasix) 40 mg IVPUSH DAILY [facility] Last Admin: 07/23/20 08:27 Dose: 40 mg Documented by: Haloperidol (Haldol) 2 mg PO BEDTIME [facility] Last Admin: 07/22/20 20:44 Dose: 2 mg Documented by: Lactulose (Cephulac) 30 gm PO TID [facility] Last Admin: 07/23/20 08:26 Dose: 30 gm Documented by: Magnesium Oxide (Magnesium Oxide) 800 mg PO 1100 [facility] Last Admin: 07/23/20 11:33 Dose: 800 mg Documented by: Melatonin (Melatonin) 3 mg PO BEDTIME PRN PRN Reason: insomnia Last Admin: 07/21/20 00:05 Dose: 3 mg Documented by: Midodrine (Midodrine) 5 mg PO TIDAC [facility] Last Admin: 07/23/20 11:33 Dose: 5 mg Documented by: Miscellaneous Information (Remove Patch) 0 ea TRDERM Q24H [facility] Last Admin: 07/23/20 13:30 Dose: 1 ea Documented by: Multivitamins (Thera) 1 each PO DAILY [facility] Last Admin: 07/23/20 08:27 Dose: 1 each Documented by: Nicotine (Habitrol) 14 mg TRDERM Q24H [facility] Last Admin: 07/23/20 13:30 Dose: 14 mg Documented by: Oxycodone HCl (Oxycodone) 5 mg PO Q6H PRN PRN Reason: Pain (moderate 4-6) Last Admin: 07/23/20 09:30 Dose: 5 mg Documented by: Oxycodone HCl (Oxycodone) 10 mg PO Q6H PRN PRN Reason: Pain (severe 7-10) Last Admin: 07/22/20 21:00 Dose: 10 mg Documented by: Spironolactone (Aldactone) 100 mg PO DAILY [facility] Last Admin: 07/23/20 08:27 Dose: 100 mg Documented by: Thiamine HCl (Vitamin B-1) 100 mg PO DAILY [facility] Last Admin: 07/23/20 08:28 Dose: 100 mg Documented by: Discontinued Medications Alprazolam (Xanax) 1 mg PO BEDTIME ONE Stop: 07/12/20 21:01 Last Admin: 07/12/20 21:24 Dose: 1 mg Documented by: Alprazolam (Xanax) 1 mg PO BEDTIME [facility] Dexamethasone (Dexamethasone) 6 mg PO Q24H [facility] Stop: 07/27/20 16:01 Last Admin: 07/19/20 15:51 Dose: 6 mg Documented by: Folic Acid (Folic Acid) 1 mg PO DAILY [facility] Furosemide (Lasix) 40 mg IVPUSH NOW ONE Stop: 07/12/20 19:17 Last Admin: 07/12/20 19:38 Dose: 40 mg Documented by: Furosemide (Lasix) 40 mg IVPUSH NOW ONE Stop: 07/13/20 09:15 Last Admin: 07/13/20 09:42 Dose: 40 mg Documented by: Furosemide (Lasix) 40 mg IVPUSH DAILY [facility] Furosemide (Lasix) 20 mg IVPUSH DAILY [facility] Last Admin: 07/14/20 10:10 Dose: 20 mg Documented by: Sodium Chloride (Normal Saline) 1,000 mls @ 125 mls/hr IV ASDIRECTED [facility] Last Admin: 07/12/20 17:03 Dose: 125 mls/hr Documented by: Vancomycin HCl 1.5 gm/ Sodium (Chloride) 500 mls @ 250 mls/hr IV ONETIME ONE Stop: 07/12/20 19:21 Last Admin: 07/12/20 20:07 Dose: 250 mls/hr Documented by: Vancomycin HCl 1 gm/ Sodium (Chloride) 250 mls @ 250 mls/hr IV Q12H [facility] Last Admin: 07/14/20 23:00 Dose: 250 mls/hr Documented by: Ceftriaxone Sodium 2 gm/ (Sodium Chloride) 100 mls @ 200 mls/hr IV Q24H [facility] Last Admin: 07/14/20 14:38 Dose: 200 mls/hr Documented by: Sodium Chloride (Normal Saline) 1,000 mls @ 100 mls/hr IV ASDIRECTED [facility] Stop: 07/15/20 00:59 Last Admin: 07/14/20 00:04 Dose: 100 mls/hr Documented by: Vancomycin HCl 1 gm/ Sodium (Chloride) 250 mls @ 250 mls/hr IV Q24H [facility] Stop: 07/21/20 23:00 Last Admin: 07/21/20 20:20 Dose: 250 mls/hr Documented by: Ceftriaxone Sodium 2 gm/ (Sodium Chloride) 100 mls @ 200 mls/hr IV Q24H [facility] Stop: 07/21/20 17:00 Last Admin: 07/21/20 15:10 Dose: 200 mls/hr Documented by: Sodium Chloride (Normal Saline) 100 mls @ 75 mls/hr IV ASDIRECTED [facility] Stop: 07/18/20 17:00 Azithromycin 500 mg/ Sodium (Chloride) 250 mls @ 250 mls/hr IV Q24H [facility] Last Admin: 07/20/20 15:19 Dose: 250 mls/hr Documented by: Remdesivir 200 mg/ Sodium (Chloride) 250 mls @ 250 mls/hr IV ONETIME ONE Stop: 07/18/20 17:29 Last Admin: 07/18/20 17:55 Dose: 250 mls/hr Documented by: Remdesivir 100 mg/ Sodium (Chloride) 100 mls @ 100 mls/hr IV Q24H [facility] Stop: 07/22/20 17:29 Last Admin: 07/19/20 17:14 Dose: 100 mls/hr Documented by: Iopamidol (Isovue-370 (76%)) 100 ml IVPUSH ONETIME ONE Stop: 07/18/20 13:38 Last Admin: 07/18/20 16:43 Dose: Not Given Documented by: Lactulose (Cephulac) 20 gm PO TID [facility] Last Admin: 07/13/20 15:46 Dose: Not Given Documented by: Lactulose (Cephulac) 20 gm PO TID [facility] Last Admin: 07/15/20 10:21 Dose: 20 gm Documented by: Lidocaine/Epinephrine (Xylocaine 1% With Epinephrine 1:100,000) 20 ml INJECT ONETIME ONE Stop: 07/20/20 13:31 Last Admin: 07/20/20 14:59 Dose: Not Given Documented by: Magnesium Oxide (Magnesium Oxide) 400 mg PO BID [facility] Stop: 07/21/20 23:00 Last Admin: 07/21/20 20:19 Dose: 400 mg Documented by: Non-Formulary Medication (Magnesium Oxide [Magnesium Oxide]) 400 mg PO DAILY [facility] Ondansetron HCl (Zofran) 4 mg IV Q6H PRN PRN Reason: Nausea/Vomiting Oxycodone HCl (Oxycodone) 5 - 10 mg PO Q6H PRN PRN Reason: Pain Potassium Chloride (Klor-Con M20) 40 meq PO TID [facility] Stop: 07/14/20 09:01 Last Admin: 07/14/20 10:09 Dose: 40 meq Documented by: Sodium Chloride (Saline Flush) 10 ml FLUSH ONETIME PRN PRN Reason: IV FLUSH Stop: 07/18/20 17:00 Spironolactone (Aldactone) 25 mg PO ONETIME ONE Stop: 07/12/20 19:18 Last Admin: 07/12/20 19:38 Dose: 25 mg Documented by: Spironolactone (Aldactone) 25 mg PO ONETIME ONE Stop: 07/13/20 09:16 Last Admin: 07/13/20 09:50 Dose: 25 mg Documented by: Spironolactone (Aldactone) 25 mg PO DAILY [facility] Spironolactone (Aldactone) 50 mg PO DAILY [facility] Last Admin: 07/15/20 10:20 Dose: 50 mg Documented by: Thiamine HCl (Vitamin B-1) 100 mg PO DAILY [facility] Vancomycin HCl (Pharmacy To Dose - Vancomycin) 1 dose .XX ASDIRECTED [facility] Stop: 07/21/20 23:00 Vancomycin HCl (Vancocin) Confirm Administered Dose 1 gm .ROUTE .STK-MED ONE Stop: 07/17/20 21:34 Last Admin: 07/17/20 23:07 Dose: Not Given Documented by: Venlafaxine HCl (Effexor) 37.5 mg PO BID [facility] - Exam Quality Assessment: No: Supplemental Oxygen General: Alert HEENT: Pupils Equal, Mucous Membr. Moist/[place] Neck: Supple Lungs: Clear to Auscultation, Normal Respiratory Effort Cardiovascular: Regular Rate, Regular Rhythm GI/Abdominal Exam: Normal Bowel Sounds, Soft, Non-Tender, No Distention Extremities: Normal Inspection, No Pedal Edema, Normal Capillary Refill Skin: Warm, Dry, Intact Psy/Mental Status: Alert, Normal Affect, Normal Mood Sepsis Event Note - Evaluation Sepsis Screening Result: No Definite Risk - Focused Exam Vital Signs: Vital Signs Temp Temp Pulse Pulse Resp BP BP 07/23/20 08:00 98.1 F 84 20 102/56 L 07/23/20 04:14 98.2 F 95 106/55 L Pulse Ox 07/23/20 08:00 93 L 07/23/20 04:14 92 L - Problem List & Annotations (1) Cirrhosis of liver with ascites SNOMED Code(s): 36873309 Code(s): K74.60 - UNSPECIFIED CIRRHOSIS OF LIVER; R18.8 - OTHER ASCITES Status: Acute Current Visit: No Qualifiers: Hepatic cirrhosis type: alcoholic cirrhosis Qualified Code(s): K70.31 - Alcoholic cirrhosis of liver with ascites (2) Esophageal varices SNOMED Code(s): 76559041 Code(s): I85.00 - ESOPHAGEAL VARICES WITHOUT BLEEDING Status: Acute Current Visit: No - Problem List Review Problem List Initiated/Reviewed/Updated: Yes - Assessment Assessment:: 07/13/2020 - Day of Admission -64 yo Male who presents to ED on 07/12/20 with confusion and bilateral cellulitis -History of hepatic encephalopathy, End stage liver disease, ETOH abuse, Tobacco use, Esophageal varices with banding, depression, dependant edema -Patient admits to ED provider that he has not been taking his medications because he forgets -Denies any ETOH use for past 2 months (ETOH in ED was 0.00) -Kept in ED overnight due to bed shortage statewide and us being on diversion -Started on Vancomycin in ED foe cellulitis -Given lactulose, spironolactone, lasix, IV fluids, Xanax, vancomycin in ED -No WBC in ED, although likely cannot mount immunologic defense due to alcoholic bone marrow suppression -Sepsis criteria: -Bilateral cellulitis, No tachycardia, tachypnea, WBC, or fever -Hypotension likely 2/2 end stage liver failure, Lactate >2 likely 2/2 chronic ETOH abuse, Bilirubin >2 chronically, Platelets <100 chronically, INR elevated 2/2 End stage liver disease -Does not meet criteria -Per ED provider social work states patient apartment was very unkempt -Social work reports patient has been known to leave water running and burners on in apartment. Patient is being evicted. 07/14/2020 * Small improvement in cellulitis * Procalcitonin was negative at 0.05 * White count 6.1 and CRP 2.1 * Lactic acid is chronically elevated due to liver disease at 2.6. Total bilirubin elevated at 7.8 and direct bilirubin 3.8 * Oxygen requirement has increased to 4 L/min * Sodium chronically low at 131 07/15/2020 * Continued improvement in cellulitis * WBC remains WNL at 7.19 with CRP of 2.2 * Oxygen requirement has decreased to 2L * Blood cultures negative thus far * Sodium improved to 133 * Potassium 4.3 * Dr. Powell saw patient and recommends withholding patients effexor and monitoring * Patient remains quite confused 07/16/20 * Continue current treatment * Routine AM labs with Ammonia * Midodrine 5 mg po TIDAC * Remains confused with hallucinations (seeing squirrels inside his room) * May consider anti-psychotic medications if needed * Need Tele-psych consult 07/17/20 * Continue current treatment: Rocephin and Vancomycin * Routine AM labs * Offered I&D but patient refused * Wound culture on right ramos * Remains confused with hallucinations (seeing squirrels inside his room) * May consider anti-psychotic medications if needed * Need Tele-psych follow up * LOS > 96 HRS due to need for placement 07/18/20 * WBC improved to 10.41 from 11.68 * CRP 9.1 from 5.7 * Creatinine 1.4 with GFR of 51 * Requiring 6L O2 via NC * Wound culture showing no growth * MELD-Na score on admission calculated to be 29 points - 27-32% estimated 90- day mortality * D-Dimer 7.29 * BNP 1009 * INR 2.33 * CTA shows pleural effusions and ground glass opacities concerning for viral/atypical pneumonia\ * Discussed plan with Dr. Castro - will start covid-19 treatment protocol 07/19/2020 * WBC 8.31 * CRP Up to 11.4 * Ferritin 513 * LDH 475 * Procalcitonin 0.43 * Creatinine 1.5, GFR 47 * INR 2.24 * On high flow oxygen * Thoracentesis performed today by Dr. Sihpley with just over 1L clear straw colored output 07/20/2020 * Echo results show: * 1. LVEF, by visual estimation, is 65-70% * 2. Hyperdynamic left ventricular systolic function * 3. Verbally normal right ventricular systolic function and size, not well visualized. * 4. The aortic valve is not well visualized. * 5. Trace mitral valve regurgitation * 6. Trace tricuspid valve regurgitation. * 7. The right ventricular systolic pressure is unable to be determined. * 8. There is a pleural effusion * WBC 9.58 * CRP 10.2 * Sodium 130 and stable * Creatinine 1.5 and GFR 47 and stable * Awaiting thoracentesis culture * VRP negative * Covid-19 negative (4th time) * Discontinued COVID-19 treatment * Discontinue isolation precautions once off of high flow 07/21/2020 * WBC 10.17 * CRP 8.4 * Sodium 130 and stable * Creatinine 1.3 and GFR 55 * S/P I&D of right ramos with Dr. Cazares on 07/20/2020 * Purulent bloody drainage * No cultures sent due to patient being on abx for several days * O2 down to 4L * Thoracentesis cultures show no growth * Continue current treatment plan * Legs continue to improve 07/22/2020 * No labs done today * Patient is stable without any complaints * He has been weaned off of oxygen * Cultures continue to be negative - Plan Plan:: Bilateral cellulitis/Stasis Dermatitis, improving Dependant edema Small hematoma/abscess on right ramos Leukocytosis Hypoxemia S/P Right ramos I&D -Monitor WBC and CRP daily -Continue doxycycline -Continue Keflex -Monitor leg inflammation -On IV Lasix 40 mg daily -On room air continue to monitor Failure to thrive Hypokalemia, resolved Hyponatremia, continues to improve Lactic Acidosis, likely resolved Medical non-compliance Hx/o hypomagnesemia Hypoalbuminemia, unchanged Relative Hypotension -Consult CM/SW -INVESTIGATOR [employer]UE cognitive evaluation - re-order now that patent is more stable -Will likely need placement at discharge -Human Resources Administrator consult tomorrow -Monitor electrolytes/magnesium -Supplement magnesium -On Midodrine 5 mg po TID History of ETOH abuse Hepatic encephalopathy End-stage ETOH related cirrhosis Elevated INR Elevated Bilirubin Hx/o esophageal varices Thrombocytopenia Macrocytic Normochromic Anemia Elevated serum ammonia Hyperlactatemia -Continue Lactulose 30mg TID and Lasix 40 mg IV daily -Continue spironolactone 50mg daily -Pharmacological DVT prophylaxis contraindicated -Monitor CBC -Continue folic acid, MV, thiamine supplementation -Low protein diet -Consult loss prevention auditor -Due to end-stage cirrhosis we can expect BPs on the lower side -hyperlactatemia is likely 2/2 to end-stage liver disease and chronic ETOH abuse. Procalcitonin was 0.05 ruling out sepsis. Depression Hallucinations -Dr. Powell consult - recommends starting Haldol -Discontinue Effexor Tobacco use disorder -Cessation counseling at discharge -Nicotine patches Code status: DNR/DNI PCP: Dr. Mccollum DVT prophylaxis: Pharmacological prophylaxis contraindicated due to significant esophageal varices history, Elevated INR, thrombocytopenia. Mechanical prophylaxis contraindicated due to bilateral LE cellulitis, dependant LE edema. Disposition: Patient admitted due to cellulitis, electrolyte abnormalities, failure to thrive and need for placement. Social: Patient reportedly lives in an apartment. [facility] Emergency Services Director is following patient. Patient has history of leaving water running and forgetting to turn of burner. Per ED note apartment is very unkempt and there are concerns for patient safety. SW/CM consulted. Prognosis: Overall poor prognosis due to end-stage ETOH cirrhosis. LOS >96 HRS due to need for placement, respiratory failure treatment, continued IV abx
[2020-07-23] MEDS: Haloperidol 1 MG Tab PO SCH (21:42)
[2020-07-24] MEDS: Acetaminophen 325 MG Tab PO PRN (06:46)
[2020-07-24] MEDS: Cephalexin 500 MG Cap PO SCH ×3 (06:46→21:31)
[2020-07-24] MEDS: Midodrine 5 MG Tab PO SCH ×3 (07:05→16:24)
[2020-07-24] MEDS: oxyCODONE 5 MG Tab PO PRN ×2 (08:29→22:10)
[2020-07-24] MEDS: Thiamine 100 MG Tab PO SCH (08:31)
[2020-07-24] MEDS: Doxycycline 100 MG Cap PO SCH ×2 (08:31→21:31)
[2020-07-24] MEDS: Multivitamins,Therapeutic Tab PO SCH (08:31)
[2020-07-24] MEDS: Spironolactone 100 MG Tab PO SCH (08:31)
[2020-07-24] MEDS: Folic Acid 1 MG Tab PO SCH (08:31)
[2020-07-24] MEDS: Lactulose Soln 10 GM/15 ML 30 ML UD Cup PO SCH ×3 (08:32→21:30)
[2020-07-24] MEDS: Furosemide 40 MG/4 ML VIAL IVPUSH SCH (08:33)
--- NOTE | 2020-07-24 08:36 | PCM.PN ---
- General Info Date of Service: 07/24/20 Admission Dx/Problem (Free Text): Admission Diagnosis/Problem Admission Diagnosis/Problem Cellulitis Subjective Update: Patient has no complaints today. Functional Status: Reports: Pain Controlled - Review of Systems General: Reports: No Symptoms HEENT: Reports: No Symptoms Pulmonary: Reports: No Symptoms Cardiovascular: Reports: No Symptoms Gastrointestinal: Reports: No Symptoms Neurological: Reports: No Symptoms - Patient Data Vitals - Most Recent: Last Vital Signs Temp 99.0 F 07/24/20 03:19 Pulse 110 H 07/24/20 03:19 Resp 22 H 07/24/20 03:19 BP 126/77 07/24/20 03:19 Pulse Ox 90 L 07/24/20 03:19 Weight - Most Recent: 192 lb 8 oz I&O - Last 24 Hours: Intake & Output 07/23/20 07/24/20 07/24/20 22:59 06:59 14:59 Intake Total 1420 600 Output Total 100 250 Balance 1320 350 Lab Results Last 24 Hours: Laboratory Results - last 24 hr 07/24/20 07/24/20 Range/Units 05:15 05:15 WBC 7.76 (4.23-9.07) K/mm3 RBC 2.84 L (4.63-6.08) M/mm3 Hgb 9.6 L (13.7-17.5) gm/dl Hct 28.4 L (40.1-51.0) % MCV 100.0 H (79.0-92.2) fl MCH 33.8 H (25.7-32.2) pg MCHC 33.8 (32.2-35.5) g/dl RDW Std Deviation 73.4 H (35.1-43.9) fL Plt Count 71 L (163-337) K/mm3 MPV 9.8 (9.4-12.3) fl Neut % (Auto) 64.0 (34.0-67.9) % Lymph % (Auto) 18.8 L (21.8-53.1) % Sully % (Auto) 10.6 (5.3-12.2) % Eos % (Auto) 5.7 (0.8-7.0) Baso % (Auto) 0.1 (0.1-1.2) % Neut # (Auto) 4.97 (1.78-5.38) K/mm3 Lymph # (Auto) 1.46 (1.32-3.57) K/mm3 Sully # (Auto) 0.82 (0.30-0.82) K/mm3 Eos # (Auto) 0.44 (0.04-0.54) K/mm3 Baso # (Auto) 0.01 (0.01-0.08) K/mm3 Manual Slide Review Abnormal smear Sodium 129 L (136-145) mEq/L Potassium 4.2 (3.5-5.1) mEq/L Chloride 98 (98-107) mEq/L Carbon Dioxide 23 (21-32) mEq/L Anion Gap 12.2 (5-15) BUN 30 H (7-18) mg/dL Creatinine 1.3 (0.7-1.3) mg/dL Est Cr Clr Drug Dosing 55.01 mL/min Estimated GFR (MDRD) 55 (>60) mL/min BUN/Creatinine Ratio 23.1 H (14-18) Glucose 99 (80-115) mg/dL Calcium 8.6 (8.5-10.1) mg/dL Phosphorus 3.2 (2.6-4.7) mg/dL Magnesium 2.2 (1.8-2.4) mg/dl Total Bilirubin 5.1 H (0.2-1.0) mg/dL AST 106 H (15-37) U/L ALT 111 H (16-63) U/L Alkaline Phosphatase 92 (46-116) U/L C-Reactive Protein 3.3 H* (<1.0) mg/dL Total Protein 6.2 L (6.4-8.2) g/dl Albumin 2.0 L (3.4-5.0) g/dl Globulin 4.2 gm/dL Albumin/Globulin Ratio 0.5 L (1-2) Luis Results Last 24 Hours: Microbiology 07/19/20 12:05 Gram Stain - Final Pleural Fluid Body Fluid Culture - Preliminary NO GROWTH AFTER 4 DAYS 07/17/20 09:22 Gram Stain - Final Leg, Right Anaerobic Culture - Preliminary NO GROWTH AFTER 6 DAYS Med Orders - Current: Current Medications Acetaminophen (Tylenol) 650 mg PO Q4H PRN PRN Reason: Pain/Fever Last Admin: 07/24/20 06:46 Dose: 650 mg Documented by: Cephalexin (Keflex) 500 mg PO Q8H [facility] Last Admin: 07/24/20 06:46 Dose: 500 mg Documented by: Doxycycline Hyclate (Vibramycin) 100 mg PO BID [facility] Last Admin: 07/24/20 08:31 Dose: 100 mg Documented by: Folic Acid (Folic Acid) 1 mg PO DAILY [facility] Last Admin: 07/24/20 08:31 Dose: 1 mg Documented by: Furosemide (Lasix) 40 mg IVPUSH DAILY [facility] Last Admin: 07/24/20 08:33 Dose: 40 mg Documented by: Haloperidol (Haldol) 2 mg PO BEDTIME [facility] Last Admin: 07/23/20 21:42 Dose: 2 mg Documented by: Lactulose (Cephulac) 30 gm PO TID [facility] Last Admin: 07/24/20 08:32 Dose: 30 gm Documented by: Magnesium Oxide (Magnesium Oxide) 800 mg PO 1100 [facility] Last Admin: 07/23/20 11:33 Dose: 800 mg Documented by: Melatonin (Melatonin) 3 mg PO BEDTIME PRN PRN Reason: insomnia Last Admin: 07/21/20 00:05 Dose: 3 mg Documented by: Midodrine (Midodrine) 5 mg PO TIDAC [facility] Last Admin: 07/24/20 07:05 Dose: 5 mg Documented by: Miscellaneous Information (Remove Patch) 0 ea TRDERM Q24H [facility] Last Admin: 07/23/20 13:30 Dose: 1 ea Documented by: Multivitamins (Thera) 1 each PO DAILY [facility] Last Admin: 07/24/20 08:31 Dose: 1 each Documented by: Nicotine (Habitrol) 14 mg TRDERM Q24H [facility] Last Admin: 07/23/20 13:30 Dose: 14 mg Documented by: Oxycodone HCl (Oxycodone) 5 mg PO Q6H PRN PRN Reason: Pain (moderate 4-6) Last Admin: 07/24/20 08:29 Dose: 5 mg Documented by: Oxycodone HCl (Oxycodone) 10 mg PO Q6H PRN PRN Reason: Pain (severe 7-10) Last Admin: 07/22/20 21:00 Dose: 10 mg Documented by: Spironolactone (Aldactone) 100 mg PO DAILY [facility] Last Admin: 07/24/20 08:31 Dose: 100 mg Documented by: Thiamine HCl (Vitamin B-1) 100 mg PO DAILY [facility] Last Admin: 07/24/20 08:31 Dose: 100 mg Documented by: Discontinued Medications Alprazolam (Xanax) 1 mg PO BEDTIME ONE Stop: 07/12/20 21:01 Last Admin: 07/12/20 21:24 Dose: 1 mg Documented by: Alprazolam (Xanax) 1 mg PO BEDTIME [facility] Dexamethasone (Dexamethasone) 6 mg PO Q24H [facility] Stop: 07/27/20 16:01 Last Admin: 07/19/20 15:51 Dose: 6 mg Documented by: Folic Acid (Folic Acid) 1 mg PO DAILY [facility] Furosemide (Lasix) 40 mg IVPUSH NOW ONE Stop: 07/12/20 19:17 Last Admin: 07/12/20 19:38 Dose: 40 mg Documented by: Furosemide (Lasix) 40 mg IVPUSH NOW ONE Stop: 07/13/20 09:15 Last Admin: 07/13/20 09:42 Dose: 40 mg Documented by: Furosemide (Lasix) 40 mg IVPUSH DAILY [facility] Furosemide (Lasix) 20 mg IVPUSH DAILY [facility] Last Admin: 07/14/20 10:10 Dose: 20 mg Documented by: Sodium Chloride (Normal Saline) 1,000 mls @ 125 mls/hr IV ASDIRECTED [facility] Last Admin: 07/12/20 17:03 Dose: 125 mls/hr Documented by: Vancomycin HCl 1.5 gm/ Sodium (Chloride) 500 mls @ 250 mls/hr IV ONETIME ONE Stop: 07/12/20 19:21 Last Admin: 07/12/20 20:07 Dose: 250 mls/hr Documented by: Vancomycin HCl 1 gm/ Sodium (Chloride) 250 mls @ 250 mls/hr IV Q12H [facility] Last Admin: 07/14/20 23:00 Dose: 250 mls/hr Documented by: Ceftriaxone Sodium 2 gm/ (Sodium Chloride) 100 mls @ 200 mls/hr IV Q24H [facility] Last Admin: 07/14/20 14:38 Dose: 200 mls/hr Documented by: Sodium Chloride (Normal Saline) 1,000 mls @ 100 mls/hr IV ASDIRECTED [facility] Stop: 07/15/20 00:59 Last Admin: 07/14/20 00:04 Dose: 100 mls/hr Documented by: Vancomycin HCl 1 gm/ Sodium (Chloride) 250 mls @ 250 mls/hr IV Q24H [facility] Stop: 07/21/20 23:00 Last Admin: 07/21/20 20:20 Dose: 250 mls/hr Documented by: Ceftriaxone Sodium 2 gm/ (Sodium Chloride) 100 mls @ 200 mls/hr IV Q24H [facility] Stop: 07/21/20 17:00 Last Admin: 07/21/20 15:10 Dose: 200 mls/hr Documented by: Sodium Chloride (Normal Saline) 100 mls @ 75 mls/hr IV ASDIRECTED [facility] Stop: 07/18/20 17:00 Azithromycin 500 mg/ Sodium (Chloride) 250 mls @ 250 mls/hr IV Q24H [facility] Last Admin: 07/20/20 15:19 Dose: 250 mls/hr Documented by: Remdesivir 200 mg/ Sodium (Chloride) 250 mls @ 250 mls/hr IV ONETIME ONE Stop: 07/18/20 17:29 Last Admin: 07/18/20 17:55 Dose: 250 mls/hr Documented by: Remdesivir 100 mg/ Sodium (Chloride) 100 mls @ 100 mls/hr IV Q24H [facility] Stop: 07/22/20 17:29 Last Admin: 07/19/20 17:14 Dose: 100 mls/hr Documented by: Iopamidol (Isovue-370 (76%)) 100 ml IVPUSH ONETIME ONE Stop: 07/18/20 13:38 Last Admin: 07/18/20 16:43 Dose: Not Given Documented by: Lactulose (Cephulac) 20 gm PO TID [facility] Last Admin: 07/13/20 15:46 Dose: Not Given Documented by: Lactulose (Cephulac) 20 gm PO TID [facility] Last Admin: 07/15/20 10:21 Dose: 20 gm Documented by: Lidocaine/Epinephrine (Xylocaine 1% With Epinephrine 1:100,000) 20 ml INJECT ONETIME ONE Stop: 07/20/20 13:31 Last Admin: 07/20/20 14:59 Dose: Not Given Documented by: Magnesium Oxide (Magnesium Oxide) 400 mg PO BID [facility] Stop: 07/21/20 23:00 Last Admin: 07/21/20 20:19 Dose: 400 mg Documented by: Non-Formulary Medication (Magnesium Oxide [Magnesium Oxide]) 400 mg PO DAILY [facility] Ondansetron HCl (Zofran) 4 mg IV Q6H PRN PRN Reason: Nausea/Vomiting Oxycodone HCl (Oxycodone) 5 - 10 mg PO Q6H PRN PRN Reason: Pain Potassium Chloride (Klor-Con M20) 40 meq PO TID [facility] Stop: 07/14/20 09:01 Last Admin: 07/14/20 10:09 Dose: 40 meq Documented by: Sodium Chloride (Saline Flush) 10 ml FLUSH ONETIME PRN PRN Reason: IV FLUSH Stop: 07/18/20 17:00 Spironolactone (Aldactone) 25 mg PO ONETIME ONE Stop: 07/12/20 19:18 Last Admin: 07/12/20 19:38 Dose: 25 mg Documented by: Spironolactone (Aldactone) 25 mg PO ONETIME ONE Stop: 07/13/20 09:16 Last Admin: 07/13/20 09:50 Dose: 25 mg Documented by: Spironolactone (Aldactone) 25 mg PO DAILY [facility] Spironolactone (Aldactone) 50 mg PO DAILY [facility] Last Admin: 07/15/20 10:20 Dose: 50 mg Documented by: Thiamine HCl (Vitamin B-1) 100 mg PO DAILY [facility] Vancomycin HCl (Pharmacy To Dose - Vancomycin) 1 dose .XX ASDIRECTED [facility] Stop: 07/21/20 23:00 Vancomycin HCl (Vancocin) Confirm Administered Dose 1 gm .ROUTE .STK-MED ONE Stop: 07/17/20 21:34 Last Admin: 07/17/20 23:07 Dose: Not Given Documented by: Venlafaxine HCl (Effexor) 37.5 mg PO BID [facility] - Exam Quality Assessment: Supplemental Oxygen General: Alert, Oriented HEENT: Pupils Equal, Mucous Membr. Moist/[place]ck: Supple Lungs: Clear to Auscultation, Normal Respiratory Effort GI/Abdominal Exam: Soft, Non-Tender, Distended Extremities: Normal Inspection, Normal Capillary Refill Skin: Warm, Dry, Intact Psy/Mental Status: Alert, Normal Affect, Normal Mood Sepsis Event Note - Evaluation Sepsis Screening Result: No Definite Risk - Focused Exam Vital Signs: Vital Signs Temp Pulse Resp BP Pulse Ox 12/06/20 03:19 99.0 F 110 H 22 H 126/77 90 L 07/23/20 23:05 97.5 F 81 16 105/62 91 L - Problem List & Annotations (1) Cirrhosis of liver with ascites SNOMED Code(s): 22130823 Code(s): K74.60 - UNSPECIFIED CIRRHOSIS OF LIVER; R18.8 - OTHER ASCITES Status: Acute Current Visit: No Qualifiers: Hepatic cirrhosis type: alcoholic cirrhosis Qualified Code(s): K70.31 - Alcoholic cirrhosis of liver with ascites (2) Esophageal varices SNOMED Code(s): 93057333 Code(s): I85.00 - ESOPHAGEAL VARICES WITHOUT BLEEDING Status: Acute Curre nt Visit: No - Problem List Review Problem List Initiated/Reviewed/Updated: Yes - My Orders Last 24 Hours: My Active Orders 07/25/20 05:11 CMP [COMPREHENSIVE METABOLIC PN,CMP] [CHEM] AM - Assessment Assessment:: 07/13/2020 - Day of Admission -64 yo Male who presents to ED on 07/12/20 with confusion and bilateral cellulitis -History of hepatic encephalopathy, End stage liver disease, ETOH abuse, Tobacco use, Esophageal varices with banding, depression, dependant edema -Patient admits to ED provider that he has not been taking his medications because he forgets -Denies any ETOH use for past 2 months (ETOH in ED was 0.00) -Kept in ED overnight due to bed shortage statewide and us being on diversion -Started on Vancomycin in ED foe cellulitis -Given lactulose, spironolactone, lasix, IV fluids, Xanax, vancomycin in ED -No WBC in ED, although likely cannot mount immunologic defense due to alcoholic bone marrow suppression -Sepsis criteria: -Bilateral cellulitis, No tachycardia, tachypnea, WBC, or fever -Hypotension likely 2/2 end stage liver failure, Lactate >2 likely 2/2 chronic ETOH abuse, Bilirubin >2 chronically, Platelets <100 chronically, INR elevated 2/2 End stage liver disease -Does not meet criteria -Per ED provider social work states patient apartment was very unkempt -Social work reports patient has been known to leave water running and burners on in apartment. Patient is being evicted. 07/14/2020 * Small improvement in cellulitis * Procalcitonin was negative at 0.05 * White count 6.1 and CRP 2.1 * Lactic acid is chronically elevated due to liver disease at 2.6. Total bilirubin elevated at 7.8 and direct bilirubin 3.8 * Oxygen requirement has increased to 4 L/min * Sodium chronically low at 131 07/15/2020 * Continued improvement in cellulitis * WBC remains WNL at 7.19 with CRP of 2.2 * Oxygen requirement has decreased to 2L * Blood cultures negative thus far * Sodium improved to 133 * Potassium 4.3 * Dr. Powell saw patient and recommends withholding patients effexor and monitor ing * Patient remains quite confused 07/16/20 * Continue current treatment * Routine AM labs with Ammonia * Midodrine 5 mg po TIDAC * Remains confused with hallucinations (seeing squirrels inside his room) * May consider anti-psychotic medications if needed * Need Tele-psych consult 07/17/20 * Continue current treatment: Rocephin and Vancomycin * Routine AM labs * Offered I&D but patient refused * Wound culture on right ramos * Remains confused with hallucinations (seeing squirrels inside his room) * May consider anti-psychotic medications if needed * Need Tele-psych follow up * LOS > 96 HRS due to need for placement 07/18/20 * WBC improved to 10.41 from 11.68 * CRP 9.1 from 5.7 * Creatinine 1.4 with GFR of 51 * Requiring 6L O2 via NC * Wound culture showing no growth * MELD-Na score on admission calculated to be 29 points - 27-32% estimated 90- day mortality * D-Dimer 7.29 * BNP 1009 * INR 2.33 * CTA shows pleural effusions and ground glass opacities concerning for viral/atypical pneumonia\ * Discussed plan with Dr. Castro - will start covid-19 treatment protocol 07/19/2020 * WBC 8.31 * CRP Up to 11.4 * Ferritin 513 * LDH 475 * Procalcitonin 0.43 * Creatinine 1.5, GFR 47 * INR 2.24 * On high flow oxygen * Thoracentesis performed today by Dr. Shipley with just over 1L clear straw colored output 07/20/2020 * Echo results show: * 1. LVEF, by visual estimation, is 65-70% * 2. Hyperdynamic left ventricular systolic function * 3. Verbally normal right ventricular systolic function and size, not well visualized. * 4. The aortic valve is not well visualized. * 5. Trace mitral valve regurgitation * 6. Trace tricuspid valve regurgitation. * 7. The right ventricular systolic pressure is unable to be determined. * 8. There is a pleural effusion * WBC 9.58 * CRP 10.2 * Sodium 130 and stable * Creatinine 1.5 and GFR 47 and stable * Awaiting thoracentesis culture * VRP negative * Covid-19 negative (4th time) * Discontinued COVID-19 treatment * Discontinue isolation precautions once off of high flow 07/21/2020 * WBC 10.17 * CRP 8.4 * Sodium 130 and stable * Creatinine 1.3 and GFR 55 * S/P I&D of right ramos with Dr. Cazares on 07/20/2020 * Purulent bloody drainage * No cultures sent due to patient being on abx for several days * O2 down to 4L * Thoracentesis cultures show no growth * Continue current treatment plan * Legs continue to improve 07/22/2020 * No labs done today * Patient is stable without any complaints * He has been weaned off of oxygen * Cultures continue to be negative 07/23/2020 * Patient is back really 1 on 1 to 2L nasal cannula given oral tolerated * Otherwise he is without complaints. 07/24/2020 * Currently on 1 L nasal cannula * White count 9.6 with moderate toxic granulation, hemoglobin * No complaints. * Currently on Keflex and doxycycline - Plan Plan:: Bilateral cellulitis/Stasis Dermatitis, improving Dependant edema Small hematoma/abscess on right ramos Leukocytosis Hypoxemia S/P Right ramos I&D -Monitor WBC and CRP as needed -Continue doxycycline -Continue Keflex -Monitor leg inflammation -On IV Lasix 40 mg daily, switch to oral Lasix 40 mg daily with spironolactone 100 mg daily Failure to thrive Hypokalemia, resolved Hyponatremia, continues to improve Lactic Acidosis, likely resolved Medical non-compliance Hx/o hypomagnesemia Hypoalbuminemia, unchanged Relative Hypotension -Consult CM/SW -ORACLE PROGRAMMER cognitive evaluation - re-order now that patent is more stable -Will likely need placement at discharge -Rodent Control Worker consult tomorrow -Monitor electrolytes/magnesium -Supplement magnesium as needed -On Midodrine 5 mg po TID History of ETOH abuse Hepatic encephalopathy End-stage ETOH related cirrhosis Elevated INR Elevated Bilirubin Hx/o esophageal varices Thrombocytopenia Macrocytic Normochromic Anemia Elevated serum ammonia Hyperlactatemia -Continue Lactulose 30mg TID and Lasix 40 mg daily -Continue spironolactone 100mg daily -Pharmacological DVT prophylaxis contraindicated -Monitor CBC -Continue folic acid, MV, thiamine supplementation -Low protein diet -Consult instructional supervisor -Due to end-stage cirrhosis we can expect BPs on the lower side -hyperlactatemia is likely 2/2 to end-stage liver disease and chronic ETOH abuse. -Procalcitonin was 0.05 ruling out sepsis. Depression Hallucinations -Dr. Powell consult - recommends starting Haldol -Discontinue Effexor Tobacco use disorder -Cessation counseling at discharge -Nicotine patches Code status: DNR/DNI PCP: Dr. Mccollum DVT prophylaxis: Pharmacological prophylaxis contraindicated due to significant esophageal varices history, Elevated INR, thrombocytopenia. Mechanical prophylaxis contraindicated due to bilateral LE cellulitis, dependant LE edema. Disposition: Patient admitted due to cellulitis, electrolyte abnormalities, failure to thrive and need for placement. Social: Patient reportedly lives in an apartment. [facility] Administrative Judge is following patient. Patient has history of leaving water running and forgetting to turn of burner. Per ED note apartment is very unkempt and there are concerns for patient safety. SW/CM consulted. Prognosis: Overall poor prognosis due to end-stage ETOH cirrhosis. LOS >96 HRS due to need for placement, respiratory failure treatment, continued IV abx
[2020-07-24] MEDS: Magnesium Oxide 400 MG Tab PO SCH (11:12)
[2020-07-24] MEDS: Nicotine 14 MG/24 Hr Patch TRDERM SCH (14:48)
[2020-07-24] MEDS: Haloperidol 1 MG Tab PO SCH (21:31)
[2020-07-25] MEDS: Acetaminophen 325 MG Tab PO PRN (04:42)
[2020-07-25] MEDS: oxyCODONE 5 MG Tab PO PRN ×3 (04:47→22:03)
[2020-07-25] MEDS: Cephalexin 500 MG Cap PO SCH ×3 (06:15→22:03)
[2020-07-25] MEDS: Midodrine 5 MG Tab PO SCH ×3 (06:16→17:46)
--- NOTE | 2020-07-25 08:36 | PCM.PN ---
- General Info Date of Service: 07/25/20 Admission Dx/Problem (Free Text): Admission Diagnosis/Problem Admission Diagnosis/Problem Cellulitis Subjective Update: In to see Mandeep. He is lying in bed. He reports he feels a bit better today. He is off of oxygen. His leg has improved. VINYL HANGER evaluated the patient. Per speech- language pathologist patient scored a 8 out of 30 on the MoCA score. This puts him in the range for dementia. They recommend that he have supervision for daily living activities, and particularly for medication, financial and health management. It is recommended he have a guardian. Will discontinue doxycycline today. PASHA continues to work on placement. Functional Status: Reports: Pain Controlled, Tolerating Diet, Ambulating, Urinating, Incentive Spirometry. Denies: New Symptoms - Review of Systems General: Reports: Weakness (improving ), Fatigue (improving ). Denies: Fever, Chills HEENT: Reports: No Symptoms. Denies: Headaches, Sore Throat Pulmonary: Reports: Shortness of Breath (improving ). Denies: Cough, Sputum, Wheezing Cardiovascular: Reports: No Symptoms. Denies: Chest Pain, Dyspnea on Exertion, Edema Gastrointestinal: Reports: No Symptoms. Denies: Abdominal Pain, Constipation, Diarrhea, Nausea, Vomiting Genitourinary: Reports: No Symptoms. Denies: Pain Musculoskeletal: Reports: Back Pain, Foot Pain Skin: Reports: No Symptoms Neurological: Reports: Confusion, Difficulty Walking, Weakness, Gait Disturbance - Patient Data Vitals - Most Recent: Last Vital Signs Temp 98.1 F 07/25/20 07:19 Pulse 78 07/25/20 07:19 Resp 16 07/25/20 07:19 BP 101/64 07/25/20 07:19 Pulse Ox 91 L 07/25/20 07:19 Weight - Most Recent: 195 lb 4.8 oz I&O - Last 24 Hours: Intake & Output 07/24/20 07/25/20 07/25/20 22:59 06:59 14:59 Intake Total 1320 500 Output Total 400 650 Balance 920 -150 Lab Results Last 24 Hours: Laboratory Results - last 24 hr 07/25/20 Range/Units 06:10 Sodium 129 L (136-145) mEq/L Potassium 4.3 (3.5-5.1) mEq/L Chloride 97 L (98-107) mEq/L Carbon Dioxide 22 (21-32) mEq/L Anion Gap 14.3 (5-15) BUN 29 H (7-18) mg/dL Creatinine 1.3 (0.7-1.3) mg/dL Est Cr Clr Drug Dosing 54.81 mL/min Estimated GFR (MDRD) 55 (>60) mL/min BUN/Creatinine Ratio 22.3 H (14-18) Glucose 112 (80-115) mg/dL Calcium 8.9 (8.5-10.1) mg/dL Total Bilirubin 5.8 H (0.2-1.0) mg/dL AST 89 H (15-37) U/L ALT 101 H (16-63) U/L Alkaline Phosphatase 101 (46-116) U/L Total Protein 6.4 (6.4-8.2) g/dl Albumin 2.0 L (3.4-5.0) g/dl Globulin 4.4 gm/dL Albumin/Globulin Ratio 0.5 L (1-2) Luis Results Last 24 Hours: Microbiology 07/19/20 12:05 Gram Stain - Final Pleural Fluid Body Fluid Culture - Preliminary NO GROWTH AFTER 6 DAYS 07/17/20 09:22 Gram Stain - Final Leg, Right Anaerobic Culture - Final NO GROWTH AFTER 7 DAYS Med Orders - Current: Current Medications Acetaminophen (Tylenol) 650 mg PO Q4H PRN PRN Reason: Pain/Fever Last Admin: 07/25/20 04:42 Dose: 650 mg Documented by: Cephalexin (Keflex) 500 mg PO Q8H [facility] Last Admin: 07/25/20 06:15 Dose: 500 mg Documented by: Doxycycline Hyclate (Vibramycin) 100 mg PO BID [facility] Last Admin: 07/24/20 21:31 Dose: 100 mg Documented by: Folic Acid (Folic Acid) 1 mg PO DAILY [facility] Last Admin: 07/24/20 08:31 Dose: 1 mg Documented by: Furosemide (Lasix) 40 mg PO DAILY [facility] Haloperidol (Haldol) 2 mg PO BEDTIME [facility] Last Admin: 07/24/20 21:31 Dose: 2 mg Documented by: Lactulose (Cephulac) 30 gm PO TID [facility] Last Admin: 07/24/20 21:30 Dose: 30 gm Documented by: Magnesium Oxide (Magnesium Oxide) 800 mg PO 1100 [facility] Last Admin: 07/24/20 11:12 Dose: 800 mg Documented by: Melatonin (Melatonin) 3 mg PO BEDTIME PRN PRN Reason: insomnia Last Admin: 07/21/20 00:05 Dose: 3 mg Documented by: Midodrine (Midodrine) 5 mg PO TIDAC [facility] Last Admin: 07/25/20 06:16 Dose: 5 mg Documented by: Miscellaneous Information (Remove Patch) 0 ea TRDERM Q24H [facility] Last Admin: 07/24/20 14:48 Dose: 1 ea Documented by: Multivitamins (Thera) 1 each PO DAILY [facility] Last Admin: 07/24/20 08:31 Dose: 1 each Documented by: Nicotine (Habitrol) 14 mg TRDERM Q24H [facility] Last Admin: 07/24/20 14:48 Dose: 14 mg Documented by: Oxycodone HCl (Oxycodone) 5 mg PO Q6H PRN PRN Reason: Pain (moderate 4-6) Last Admin: 07/25/20 04:47 Dose: 5 mg Documented by: Oxycodone HCl (Oxycodone) 10 mg PO Q6H PRN PRN Reason: Pain (severe 7-10) Last Admin: 07/22/20 21:00 Dose: 10 mg Documented by: Spironolactone (Aldactone) 100 mg PO DAILY [facility] Last Admin: 07/24/20 08:31 Dose: 100 mg Documented by: Thiamine HCl (Vitamin B-1) 100 mg PO DAILY [facility] Last Admin: 07/24/20 08:31 Dose: 100 mg Documented by: Discontinued Medications Alprazolam (Xanax) 1 mg PO BEDTIME ONE Stop: 07/12/20 21:01 Last Admin: 07/12/20 21:24 Dose: 1 mg Documented by: Alprazolam (Xanax) 1 mg PO BEDTIME [facility] Dexamethasone (Dexamethasone) 6 mg PO Q24H MELISSA Stop: 07/27/20 16:01 Last Admin: 07/19/20 15:51 Dose: 6 mg Documented by: Folic Acid (Folic Acid) 1 mg PO DAILY [facility] Furosemide (Lasix) 40 mg IVPUSH NOW ONE Stop: 07/12/20 19:17 Last Admin: 07/12/20 19:38 Dose: 40 mg Documented by: Furosemide (Lasix) 40 mg IVPUSH NOW ONE Stop: 07/13/20 09:15 Last Admin: 07/13/20 09:42 Dose: 40 mg Documented by: Furosemide (Lasix) 40 mg IVPUSH DAILY [facility] Furosemide (Lasix) 20 mg IVPUSH DAILY [facility] Last Admin: 07/14/20 10:10 Dose: 20 mg Documented by: Furosemide (Lasix) 40 mg IVPUSH DAILY [facility] Last Admin: 07/24/20 08:33 Dose: 40 mg Documented by: Sodium Chloride (Normal Saline) 1,000 mls @ 125 mls/hr IV ASDIRECTED [facility] Last Admin: 07/12/20 17:03 Dose: 125 mls/hr Documented by: Vancomycin HCl 1.5 gm/ Sodium (Chloride) 500 mls @ 250 mls/hr IV ONETIME ONE Stop: 07/12/20 19:21 Last Admin: 07/12/20 20:07 Dose: 250 mls/hr Documented by: Vancomycin HCl 1 gm/ Sodium (Chloride) 250 mls @ 250 mls/hr IV Q12H [facility] Last Admin: 07/14/20 23:00 Dose: 250 mls/hr Documented by: Ceftriaxone Sodium 2 gm/ (Sodium Chloride) 100 mls @ 200 mls/hr IV Q24H [facility] Last Admin: 07/14/20 14:38 Dose: 200 mls/hr Documented by: Sodium Chloride (Normal Saline) 1,000 mls @ 100 mls/hr IV ASDIRECTED [facility] Stop: 07/15/20 00:59 Last Admin: 07/14/20 00:04 Dose: 100 mls/hr Documented by: Vancomycin HCl 1 gm/ Sodium (Chloride) 250 mls @ 250 mls/hr IV Q24H [facility] Stop: 07/21/20 23:00 Last Admin: 07/21/20 20:20 Dose: 250 mls/hr Documented by: Ceftriaxone Sodium 2 gm/ (Sodium Chloride) 100 mls @ 200 mls/hr IV Q24H [facility] Stop: 07/21/20 17:00 Last Admin: 07/21/20 15:10 Dose: 200 mls/hr Documented by: Sodium Chloride (Normal Saline) 100 mls @ 75 mls/hr IV ASDIRECTED [facility] Stop: 07/18/20 17:00 Azithromycin 500 mg/ Sodium (Chloride) 250 mls @ 250 mls/hr IV Q24H [facility] Last Admin: 07/20/20 15:19 Dose: 250 mls/hr Documented by: Remdesivir 200 mg/ Sodium (Chloride) 250 mls @ 250 mls/hr IV ONETIME ONE Stop: 07/18/20 17:29 Last Admin: 07/18/20 17:55 Dose: 250 mls/hr Documented by: Remdesivir 100 mg/ Sodium (Chloride) 100 mls @ 100 mls/hr IV Q24H [facility] Stop: 07/22/20 17:29 Last Admin: 07/19/20 17:14 Dose: 100 mls/hr Documented by: Iopamidol (Isovue-370 (76%)) 100 ml IVPUSH ONETIME ONE Stop: 07/18/20 13:38 Last Admin: 07/18/20 16:43 Dose: Not Given Documented by: Lactulose (Cephulac) 20 gm PO TID [facility] Last Admin: 07/13/20 15:46 Dose: Not Given Documented by: Lactulose (Cephulac) 20 gm PO TID [facility] Last Admin: 07/15/20 10:21 Dose: 20 gm Documented by: Lidocaine/Epinephrine (Xylocaine 1% With Epinephrine 1:100,000) 20 ml INJECT O NETIME ONE Stop: 07/20/20 13:31 Last Admin: 07/20/20 14:59 Dose: Not Given Documented by: Magnesium Oxide (Magnesium Oxide) 400 mg PO BID [facility] Stop: 07/21/20 23:00 Last Admin: 07/21/20 20:19 Dose: 400 mg Documented by: Non-Formulary Medication (Magnesium Oxide [Magnesium Oxide]) 400 mg PO DAILY [facility] Ondansetron HCl (Zofran) 4 mg IV Q6H PRN PRN Reason: Nausea/Vomiting Oxycodone HCl (Oxycodone) 5 - 10 mg PO Q6H PRN PRN Reason: Pain Potassium Chloride (Klor-Con M20) 40 meq PO TID [facility] Stop: 07/14/20 09:01 Last Admin: 07/14/20 10:09 Dose: 40 meq Documented by: Sodium Chloride (Saline Flush) 10 ml FLUSH ONETIME PRN PRN Reason: IV FLUSH Stop: 07/18/20 17:00 Spironolactone (Aldactone) 25 mg PO ONETIME ONE Stop: 07/12/20 19:18 Last Admin: 07/12/20 19:38 Dose: 25 mg Documented by: Spironolactone (Aldactone) 25 mg PO ONETIME ONE Stop: 07/13/20 09:16 Last Admin: 07/13/20 09:50 Dose: 25 mg Documented by: Spironolactone (Aldactone) 25 mg PO DAILY [facility] Spironolactone (Aldactone) 50 mg PO DAILY [facility] Last Admin: 07/15/20 10:20 Dose: 50 mg Documented by: Thiamine HCl (Vitamin B-1) 100 mg PO DAILY [facility] Vancomycin HCl (Pharmacy To Dose - Vancomycin) 1 dose .XX ASDIRECTED [facility] Stop: 07/21/20 23:00 Vancomycin HCl (Vancocin) Confirm Administered Dose 1 gm .ROUTE .STK-MED ONE Stop: 07/17/20 21:34 Last Admin: 07/17/20 23:07 Dose: Not Given Documented by: Venlafaxine HCl (Effexor) 37.5 mg PO BID MELISSA - Exam Quality Assessment: No: Supplemental Oxygen, Urine Catheter, DVT Prophylaxis (contraindicated ) General: Alert, Cooperative, No Acute Distress. No: Oriented HEENT: Pupils Equal, Pupils Reactive, Mucous Membr. Moist/[place], Scleral Icterus Neck: Supple, Trachea Midline Lungs: Clear to Auscultation, Normal Respiratory Effort, Decreased Breath Sounds Cardiovascular: Regular Rate, Regular Rhythm GI/Abdominal Exam: Normal Bowel Sounds, Non-Tender, Distended (Male) Exam: Deferred Back Exam: Normal Inspection, Decreased Range of Motion Extremities: Normal Range of Motion, Leg Pain, Increased Warmth (improving ), Redness (improving ) Skin: Warm, Dry, Intact Wound/Incisions: Healing Well, Dressing Dry and Intact, Drainage (Drainage from left hip) Neurological: No New Focal Deficit Psy/Mental Status: Alert, Normal Affect, Normal Mood Sepsis Event Note - Evaluation Sepsis Screening Result: No Definite Risk - Focused Exam Vital Signs: Vital Signs Temp Pulse Resp BP Pulse Ox 07/25/20 07:19 98.1 F 78 16 101/64 91 L 07/25/20 04:42 80 91 L 07/25/20 04:37 98.4 F 83 106/51 L 90 L 07/24/20 23:09 77 91 L 07/24/20 22:56 97.5 F 75 16 111/55 L 93 L 12/06/20 22:02 87 92 L 07/24/20 21:58 93 92 L - Problem List & Annotations (1) Tobacco use disorder SNOMED Code(s): 816343977 Code(s): F17.200 - NICOTINE DEPENDENCE, UNSPECIFIED, UNCOMPLICATED Status: Chronic Priority: Medium Current Visit: No (2) History of alcohol abuse SNOMED Code(s): 476906732 Code(s): F10.11 - ALCOHOL ABUSE, IN REMISSION Status: Chronic Priority: Medium Current Visit: No (3) Esophageal varices without bleeding SNOMED Code(s): 81091627 Code(s): I85.00 - ESOPHAGEAL VARICES WITHOUT BLEEDING Status: Chronic Priority: Medium Current Visit: No Qualifiers: Esophageal varices type: unspecified type Qualified Code(s): I85.00 - Esophageal varices without bleeding (4) Failure to thrive SNOMED Code(s): 69641910 Code(s): QEQ9863 - Status: Acute Priority: High Current Visit: Yes Qualifiers: Failure to thrive age range: in adult Qualified Code(s): R62.7 - Adult failure to thrive (5) Difficulty walking SNOMED Code(s): 512741027 Code(s): R26.2 - DIFFICULTY IN WALKING, NOT ELSEWHERE CLASSIFIED Status: Acute Priority: High Current Visit: Yes (6) Medical non-compliance SNOMED Code(s): 610936812 Code(s): Z91.19 - PATIENT'S NONCOMPLIANCE W OTH MEDICAL TREATMENT AND REGIMEN Status: Chronic Priority: High Current Visit: Yes (7) Serum ammonia increased SNOMED Code(s): 2585458 Code(s): E72.20 - DISORDER OF UREA CYCLE METABOLISM, UNSPECIFIED Status: Chronic Priority: High Current Visit: Yes (8) Anemia SNOMED Code(s): 901983360 Code(s): D64.9 - ANEMIA, UNSPECIFIED Status: Chronic Current Visit: Yes Qualifiers: Anemia type: bone marrow failure Bone marrow failure anemia type: unspecified bone marrow failure Qualified Code(s): D61.9 - Aplastic anemia, unspecified (9) Bilateral lower leg cellulitis SNOMED Code(s): 455860655 Code(s): L03.116 - CELLULITIS OF LEFT LOWER LIMB; L03.115 - CELLULITIS OF RIGHT LOWER LIMB Status: Acute Priority: High Current Visit: Yes (10) Cirrhosis of liver SNOMED Code(s): 06659678 Code(s): K74.60 - UNSPECIFIED CIRRHOSIS OF LIVER Status: Chronic Priority: High Current Visit: Yes Qualifiers: Hepatic cirrhosis type: alcoholic cirrhosis Ascites presence: with ascites Qualified Code(s): K70.31 - Alcoholic cirrhosis of liver with ascites (11) Dependent edema SNOMED Code(s): 958008940 Code(s): R60.9 - EDEMA, UNSPECIFIED Status: Acute Priority: High Current Visit: Yes (12) Elevated INR SNOMED Code(s): 955164511 Code(s): R79.1 - ABNORMAL COAGULATION PROFILE Status: Chronic Priority: Medium Current Visit: Yes (13) Hypokalemia SNOMED Code(s): 03913192 Code(s): E87.6 - HYPOKALEMIA Status: Resolved Priority: High Current Visit: Yes (14) Hyponatremia SNOMED Code(s): 03299733 Code(s): E87.1 - HYPO-OSMOLALITY AND HYPONATREMIA Status: Acute Priority: High Current Visit: Yes (15) Thrombocytopenia SNOMED Code(s): 818834851 Code(s): D69.6 - THROMBOCYTOPENIA, UNSPECIFIED Status: Chronic Priority: High Current Visit: Yes (16) Depression SNOMED Code(s): 13933472 Code(s): F32.9 - MAJOR DEPRESSIVE DISORDER, SINGLE EPISODE, UNSPECIFIED Status: Chronic Priority: Medium Current Visit: Yes Qualifiers: Depression Type: other depression Qualified Code(s): F32.89 - Other specified depressive episodes (17) Hepatic encephalopathy SNOMED Code(s): 00347373 Code(s): K72.90 - HEPATIC FAILURE, UNSPECIFIED WITHOUT COMA Status: Chronic Priority: High Current Visit: Yes (18) Lactic acidosis SNOMED Code(s): 62691822 Code(s): E87.2 - ACIDOSIS Status: Acute Priority: High Current Visit: Yes (19) Hypoxia SNOMED Code(s): 129938958 Code(s): R09.02 - HYPOXEMIA Status: Acute Priority: High Current Visit: Yes (20) Elevated d-dimer SNOMED Code(s): 879947943 Code(s): R79.89 - OTHER SPECIFIED ABNORMAL FINDINGS OF BLOOD CHEMISTRY Status: Acute Priority: High Current Visit: Yes (21) Respiratory failure SNOMED Code(s): 772046388 Code(s): J96.90 - RESPIRATORY FAILURE, UNSP, UNSP W HYPOXIA OR HYPERCAPNIA Status: Resolved Priority: High Current Visit: Yes Qualifiers: Chronicity: acute Respiratory failure complication: hypoxia Qualified Code(s): J96.01 - Acute respiratory failure with hypoxia (22) Suspected COVID-19 virus infection SNOMED Code(s): 796192048 Code(s): Z20.828 - CONTACT W AND EXPOSURE TO OTH VIRAL COMMUNICABLE DISEASES Status: Ruled-out Priority: High Current Visit: Yes (23) S/P thoracentesis SNOMED Code(s): 501958203, 10902721, 037500827 Code(s): Z98.890 - OTHER SPECIFIED POSTPROCEDURAL STATES Status: Acute Priority: Low Current Visit: Yes (24) Status post incision and drainage SNOMED Code(s): 913996168, 283506460 Code(s): Z98.890 - OTHER SPECIFIED POSTPROCEDURAL STATES Status: Acute Priority: Medium Current Visit: Yes (25) Hallucination, visual SNOMED Code(s): 16003725 Code(s): R44.1 - VISUAL HALLUCINATIONS Status: Acute Priority: High Current Visit: Yes - Problem List Review Problem List Initiated/Reviewed/Updated: Yes - Assessment Assessment:: 07/13/2020 - Day of Admission -64 yo Male who presents to ED on 07/12/20 with confusion and bilateral cellulitis -History of hepatic encephalopathy, End stage liver disease, ETOH abuse, Tobacco use, Esophageal varices with banding, depression, dependant edema -Patient admits to ED provider that he has not been taking his medications because he forgets -Denies any ETOH use for past 2 months (ETOH in ED was 0.00) -Kept in ED overnight due to bed shortage statewide and us being on diversion -Started on Vancomycin in ED foe cellulitis -Given lactulose, spironolactone, lasix, IV fluids, Xanax, vancomycin in ED -No WBC in ED, although likely cannot mount immunologic defense due to alcoholic bone marrow suppression -Sepsis criteria: -Bilateral cellulitis, No tachycardia, tachypnea, WBC, or fever -Hypotension likely 2/2 end stage liver failure, Lactate >2 likely 2/2 chronic ETOH abuse, Bilirubin >2 chronically, Platelets <100 chronically, INR elevated 2/2 End stage liver disease -Does not meet criteria -Per ED provider social work states patient apartment was very unkempt -Social work reports patient has been known to leave water running and burners on in apartment. Patient is being evicted. 07/14/2020 * Small improvement in cellulitis * Procalcitonin was negative at 0.05 * White count 6.1 and CRP 2.1 * Lactic acid is chronically elevated due to liver disease at 2.6. Total bilirubin elevated at 7.8 and direct bilirubin 3.8 * Oxygen requirement has increased to 4 L/min * Sodium chronically low at 131 07/15/2020 * Continued improvement in cellulitis * WBC remains WNL at 7.19 with CRP of 2.2 * Oxygen requirement has decreased to 2L * Blood cultures negative thus far * Sodium improved to 133 * Potassium 4.3 * Dr. Powell saw patient and recommends withholding patients effexor and monitoring * Patient remains quite confused 07/16/20 * Continue current treatment * Routine AM labs with Ammonia * Midodrine 5 mg po TIDAC * Remains confused with hallucinations (seeing squirrels inside his room) * May consider anti-psychotic medications if needed * Need Tele-psych consult 07/17/20 * Continue current treatment: Rocephin and Vancomycin * Routine AM labs * Offered I&D but patient refused * Wound culture on right ramos * Remains confused with hallucinations (seeing squirrels inside his room) * May consider anti-psychotic medications if needed * Need Tele-psych follow up * LOS > 96 HRS due to need for placement 07/18/20 * WBC improved to 10.41 from 11.68 * CRP 9.1 from 5.7 * Creatinine 1.4 with GFR of 51 * Requiring 6L O2 via NC * Wound culture showing no growth * MELD-Na score on admission calculated to be 29 points - 27-32% estimated 90-day mortality * D-Dimer 7.29 * BNP 1009 * INR 2.33 * CTA shows pleural effusions and ground glass opacities concerning for viral/atypical pneumonia\ * Discussed plan with Dr. Castro - will start covid-19 treatment protocol 07/19/2020 * WBC 8.31 * CRP Up to 11.4 * Ferritin 513 * LDH 475 * Procalcitonin 0.43 * Creatinine 1.5, GFR 47 * INR 2.24 * On high flow oxygen * Thoracentesis performed today by Dr. Shipley with just over 1L clear straw colored output 07/20/2020 * Echo results show: * 1. LVEF, by visual estimation, is 65-70% * 2. Hyperdynamic left ventricular systolic function * 3. Verbally normal right ventricular systolic function and size, not well visualized. * 4. The aortic valve is not well visualized. * 5. Trace mitral valve regurgitation * 6. Trace tricuspid valve regurgitation. * 7. The right ventricular systolic pressure is unable to be determined. * 8. There is a pleural effusion * WBC 9.58 * CRP 10.2 * Sodium 130 and stable * Creatinine 1.5 and GFR 47 and stable * Awaiting thoracentesis culture * VRP negative * Covid-19 negative (4th time) * Discontinued COVID-19 treatment * Discontinue isolation precautions once off of high flow 07/21/2020 * WBC 10.17 * CRP 8.4 * Sodium 130 and stable * Creatinine 1.3 and GFR 55 * S/P I&D of right ramos with Dr. Cazares on 07/20/2020 * Purulent bloody drainage * No cultures sent due to patient being on abx for several days * O2 down to 4L * Thoracentesis cultures show no growth * Continue current treatment plan * Legs continue to improve 07/22/2020 * No labs done today * Patient is stable without any complaints * He has been weaned off of oxygen * Cultures continue to be negative 07/23/2020 * Patient is back really 1 on 1 to 2L nasal cannula given oral tolerated * Otherwise he is without complaints. 07/24/2020 * Currently on 1 L nasal cannula * White count 9.6 with moderate toxic granulation, hemoglobin * No complaints. * Currently on Keflex and doxycycline 07/25/2020 * Off of oxygen today * No new complaints - still reports foot and back pain * On Keflex - doxycycline was discontinued * Serosanguineous drainage from left hip * Sodium 129 and stable * Pending placement * VINYL HANGER evaluation on Saturday noted significant cognitive deficit. 04/17 on MOCA - Plan Plan:: Bilateral cellulitis/Stasis Dermatitis, improving Dependant edema Small hematoma/abscess on right ramos Leukocytosis Hypoxemia S/P Right ramos I&D -Monitor WBC and CRP as needed -Discontinue doxycycline today -Continue Keflex -Monitor leg inflammation -Continue oral Lasix 40 mg daily with spironolactone 100 mg daily Failure to thrive Hypokalemia, resolved Hyponatremia, continues to improve Lactic Acidosis, likely resolved Medical non-compliance Hx/o hypomagnesemia Hypoalbuminemia, unchanged Relative Hypotension -Consult CM/SW -Will likely need placement at discharge -[employer] Se[employer] consult -Monitor electrolytes/magnesium and supplement as needed -On Midodrine 5 mg po TID History of ETOH abuse Hepatic encephalopathy End-stage ETOH related cirrhosis Elevated INR Elevated Bilirubin Hx/o esophageal varices Thrombocytopenia Macrocytic Normochromic Anemia Elevated serum ammonia Hyperlactatemia -Continue Lactulose 30mg TID and Lasix 40 mg daily -Continue spironolactone 100mg daily -Pharmacological DVT prophylaxis contraindicated -Monitor CBC -Continue folic acid, MV, thiamine supplementation -Low protein diet -Consult financial report service sales agent -Due to end-stage cirrhosis we can expect BPs on the lower side -hyperlactatemia is likely 2/2 to end-stage liver disease and chronic ETOH abus e. -Procalcitonin was 0.05 ruling out sepsis. Depression Hallucinations -Dr. Powell consulted - recommends starting Haldol -Discontinue Effexor Tobacco use disorder -Cessation counseling at discharge -Nicotine patches Code status: DNR/DNI PCP: Dr. Mccollum DVT prophylaxis: Pharmacological prophylaxis contraindicated due to significant esophageal varices history, Elevated INR, thrombocytopenia. Mechanical prophylaxis contraindicated due to bilateral LE cellulitis, dependant LE edema. Disposition: Patient admitted due to cellulitis, electrolyte abnormalities, failure to thrive and need for placement. Social: Patient reportedly lives in an apartment. [facility] Lease Out Man is following patient. Patient has history of leaving water running and forgetting to turn of burner. Per ED note apartment is very unkempt and there are concerns for patient safety. SW/CM consulted. Prognosis: Overall poor prognosis due to end-stage ETOH cirrhosis. LOS >96 HRS due to need for placement, respiratory failure treatment, continued IV abx
[2020-07-25] MEDS: Lactulose Soln 10 GM/15 ML 30 ML UD Cup PO SCH ×3 (08:40→22:02)
[2020-07-25] MEDS: Doxycycline 100 MG Cap PO SCH (08:40)
[2020-07-25] MEDS: Multivitamins,Therapeutic Tab PO SCH (08:41)
[2020-07-25] MEDS: Spironolactone 100 MG Tab PO SCH (08:41)
[2020-07-25] MEDS: Furosemide 40 MG Tab PO SCH (08:41)
[2020-07-25] MEDS: Folic Acid 1 MG Tab PO SCH (08:42)
[2020-07-25] MEDS: Thiamine 100 MG Tab PO SCH (08:42)
[2020-07-25] MEDS: Magnesium Oxide 400 MG Tab PO SCH (13:24)
[2020-07-25] MEDS: Nicotine 14 MG/24 Hr Patch TRDERM SCH (13:25)
[2020-07-25] MEDS: Melatonin 3 MG Tab PO PRN (22:03)
[2020-07-25] MEDS: Haloperidol 1 MG Tab PO SCH (22:05)
[2020-07-26] MEDS: Cephalexin 500 MG Cap PO SCH ×3 (06:57→21:57)
[2020-07-26] MEDS: Midodrine 5 MG Tab PO SCH ×3 (06:57→16:53)
[2020-07-26] MEDS: Acetaminophen 325 MG Tab PO PRN (06:57)
--- NOTE | 2020-07-26 07:29 | PCM.PN ---
- General Info Date of Service: 07/26/20 Admission Dx/Problem (Free Text): Admission Diagnosis/Problem Admission Diagnosis/Problem Cellulitis Subjective Update: In to see Mandeep. His legs are more edematous but his inflammation is virtually resolved. Will discontinue abx as he has completed treatment. Significant weight gain and increase in pedal edema so will increase lasix dosing. Otherwise remains stable. Functional Status: Reports: Pain Controlled, Tolerating Diet, Ambulating, Urinating, Incentive Spirometry. Denies: New Symptoms - Review of Systems General: Reports: No Symptoms, Weakness, Fatigue, Malaise. Denies: Fever, Chills HEENT: Reports: No Symptoms. Denies: Headaches, Sore Throat Pulmonary: Reports: No Symptoms. Denies: Shortness of Breath, Cough, Sputum, Wheezing Cardiovascular: Reports: Edema. Denies: Chest Pain, Palpitations, Dyspnea on Exertion Gastrointestinal: Reports: Abdominal Pain ("Hernia"). Denies: Constipation, Diarrhea, Nausea, Vomiting Genitourinary: Reports: No Symptoms. Denies: Pain Musculoskeletal: Reports: Foot Pain (right ) Skin: Reports: No Symptoms. Denies: Cyanosis Neurological: Reports: No Symptoms, Confusion, Pre-Existing Deficit, Weakness Psychiatric: Reports: No Symptoms - Patient Data Vitals - Most Recent: Last Vital Signs Temp 97.5 F 07/26/20 04:17 Pulse 84 07/26/20 04:17 Resp 18 07/26/20 04:17 BP 106/55 L 07/26/20 04:17 Pulse Ox 86 L 07/26/20 04:17 Weight - Most Recent: 197 lb 6.4 oz I&O - Last 24 Hours: Intake & Output 07/25/20 07/26/20 07/26/20 22:59 06:59 14:59 Intake Total 820 Output Total 200 Balance 620 Luis Results Last 24 Hours: Microbiology 07/19/20 12:05 Gram Stain - Final Pleural Fluid Body Fluid Culture - Final NO GROWTH AFTER 7 DAYS Med Orders - Current: Current Medications Acetaminophen (Tylenol) 650 mg PO Q4H PRN PRN Reason: Pain/Fever Last Admin: 07/26/20 06:57 Dose: 650 mg Documented by: Cephalexin (Keflex) 500 mg PO Q8H MELISSA Last Admin: 07/26/20 06:57 Dose: 500 mg Documented by: Folic Acid (Folic Acid) 1 mg PO DAILY ON LICENSE OF [facility] Last Admin: 07/25/20 08:42 Dose: 1 mg Documented by: Furosemide (Lasix) 40 mg PO DAILY ON LICENSE OF [facility] Last Admin: 07/25/20 08:41 Dose: 40 mg Documented by: Haloperidol (Haldol) 2 mg PO BEDTIME ON LICENSE OF [facility] Last Admin: 07/25/20 22:05 Dose: 2 mg Documented by: Lactulose (Cephulac) 30 gm PO TID ON LICENSE OF [facility] Last Admin: 07/25/20 22:02 Dose: 30 gm Documented by: Magnesium Oxide (Magnesium Oxide) 800 mg PO 1100 ON LICENSE OF [facility] Last Admin: 07/25/20 13:24 Dose: 800 mg Documented by: Melatonin (Melatonin) 3 mg PO BEDTIME PRN PRN Reason: insomnia Last Admin: 07/25/20 22:03 Dose: 3 mg Documented by: Midodrine (Midodrine) 5 mg PO TIDAC ON LICENSE OF [facility] Last Admin: 07/26/20 06:57 Dose: 5 mg Documented by: Miscellaneous Information (Remove Patch) 0 ea TRDERM Q24H ON LICENSE OF [facility] Last Admin: 07/25/20 13:28 Dose: 1 ea Documented by: Multivitamins (Thera) 1 each PO DAILY ON LICENSE OF [facility] Last Admin: 07/25/20 08:41 Dose: 1 each Documented by: Nicotine (Habitrol) 14 mg TRDERM Q24H ON LICENSE OF [facility] Last Admin: 07/25/20 13:25 Dose: 14 mg Documented by: Oxycodone HCl (Oxycodone) 5 mg PO Q6H PRN PRN Reason: Pain (moderate 4-6) Last Admin: 07/25/20 22:03 Dose: 5 mg Documented by: Oxycodone HCl (Oxycodone) 10 mg PO Q6H PRN PRN Reason: Pain (severe 7-10) Last Admin: 07/25/20 15:30 Dose: 10 mg Documented by: Spironolactone (Aldactone) 100 mg PO DAILY ON LICENSE OF [facility] Last Admin: 07/25/20 08:41 Dose: 100 mg Documented by: Thiamine HCl (Vitamin B-1) 100 mg PO DAILY ON LICENSE OF [facility] Last Admin: 07/25/20 08:42 Dose: 100 mg Documented by: Discontinued Medications Alprazolam (Xanax) 1 mg PO BEDTIME ONE Stop: 07/12/20 21:01 Last Admin: 07/12/20 21:24 Dose: 1 mg Documented by: Alprazolam (Xanax) 1 mg PO BEDTIME MELISSA Dexamethasone (Dexamethasone) 6 mg PO Q24H ON LICENSE OF [facility] Stop: 07/27/20 16:01 Last Admin: 07/19/20 15:51 Dose: 6 mg Documented by: Doxycycline Hyclate (Vibramycin) 100 mg PO BID ON LICENSE OF [facility] Last Admin: 07/25/20 08:40 Dose: 100 mg Documented by: Folic Acid (Folic Acid) 1 mg PO DAILY ON LICENSE OF [facility] Furosemide (Lasix) 40 mg IVPUSH NOW ONE Stop: 07/12/20 19:17 Last Admin: 07/12/20 19:38 Dose: 40 mg Documented by: Furosemide (Lasix) 40 mg IVPUSH NOW ONE Stop: 07/13/20 09:15 Last Admin: 07/13/20 09:42 Dose: 40 mg Documented by: Furosemide (Lasix) 40 mg IVPUSH DAILY ON LICENSE OF [facility] Furosemide (Lasix) 20 mg IVPUSH DAILY ON LICENSE OF [facility] Last Admin: 07/14/20 10:10 Dose: 20 mg Documented by: Furosemide (Lasix) 40 mg IVPUSH DAILY ON LICENSE OF [facility] Last Admin: 07/24/20 08:33 Dose: 40 mg Documented by: Sodium Chloride (Normal Saline) 1,000 mls @ 125 mls/hr IV ASDIRECTED ON LICENSE OF [facility] Last Admin: 07/12/20 17:03 Dose: 125 mls/hr Documented by: Vancomycin HCl 1.5 gm/ Sodium (Chloride) 500 mls @ 250 mls/hr IV ONETIME ONE Stop: 07/12/20 19:21 Last Admin: 07/12/20 20:07 Dose: 250 mls/hr Documented by: Vancomycin HCl 1 gm/ Sodium (Chloride) 250 mls @ 250 mls/hr IV Q12H ON LICENSE OF [facility] Last Admin: 07/14/20 23:00 Dose: 250 mls/hr Documented by: Ceftriaxone Sodium 2 gm/ (Sodium Chloride) 100 mls @ 200 mls/hr IV Q24H ON LICENSE OF [facility] Last Admin: 07/14/20 14:38 Dose: 200 mls/hr Documented by: Sodium Chloride (Normal Saline) 1,000 mls @ 100 mls/hr IV ASDIRECTED ON LICENSE OF [facility] Stop: 07/15/20 00:59 Last Admin: 07/14/20 00:04 Dose: 100 mls/hr Documented by: Vancomycin HCl 1 gm/ Sodium (Chloride) 250 mls @ 250 mls/hr IV Q24H ON LICENSE OF [facility] Stop: 07/21/20 23:00 Last Admin: 07/21/20 20:20 Dose: 250 mls/hr Documented by: Ceftriaxone Sodium 2 gm/ (Sodium Chloride) 100 mls @ 200 mls/hr IV Q24H ON LICENSE OF [facility] Stop: 07/21/20 17:00 Last Admin: 07/21/20 15:10 Dose: 200 mls/hr Documented by: Sodium Chloride (Normal Saline) 100 mls @ 75 mls/hr IV ASDIRECTED ON LICENSE OF [facility] Stop: 07/18/20 17:00 Azithromycin 500 mg/ Sodium (Chloride) 250 mls @ 250 mls/hr IV Q24H ON LICENSE OF [facility] Last Admin: 07/20/20 15:19 Dose: 250 mls/hr Documented by: Remdesivir 200 mg/ Sodium (Chloride) 250 mls @ 250 mls/hr IV ONETIME ONE Stop: 07/18/20 17:29 Last Admin: 07/18/20 17:55 Dose: 250 mls/hr Documented by: Remdesivir 100 mg/ Sodium (Chloride) 100 mls @ 100 mls/hr IV Q24H ON LICENSE OF [facility] Stop: 07/22/20 17:29 Last Admin: 07/19/20 17:14 Dose: 100 mls/hr Documented by: Iopamidol (Isovue-370 (76%)) 100 ml IVPUSH ONETIME ONE Stop: 07/18/20 13:38 Last Admin: 07/18/20 16:43 Dose: Not Given Documented by: Lactulose (Cephulac) 20 gm PO TID MELISSA Last Admin: 07/13/20 15:46 Dose: Not Given Documented by: Lactulose (Cephulac) 20 gm PO TID ON LICENSE OF [facility] Last Admin: 07/15/20 10:21 Dose: 20 gm Documented by: Lidocaine/Epinephrine (Xylocaine 1% With Epinephrine 1:100,000) 20 ml INJECT ONETIME ONE Stop: 07/20/20 13:31 Last Admin: 07/20/20 14:59 Dose: Not Given Documented by: Magnesium Oxide (Magnesium Oxide) 400 mg PO BID ON LICENSE OF [facility] Stop: 07/21/20 23:00 Last Admin: 07/21/20 20:19 Dose: 400 mg Documented by: Non-Formulary Medication (Magnesium Oxide [Magnesium Oxide]) 400 mg PO DAILY ON LICENSE OF [facility] Ondansetron HCl (Zofran) 4 mg IV Q6H PRN PRN Reason: Nausea/Vomiting Oxycodone HCl (Oxycodone) 5 - 10 mg PO Q6H PRN PRN Reason: Pain Potassium Chloride (Klor-Con M20) 40 meq PO TID ON LICENSE OF [facility] Stop: 07/14/20 09:01 Last Admin: 07/14/20 10:09 Dose: 40 meq Documented by: Sodium Chloride (Saline Flush) 10 ml FLUSH ONETIME PRN PRN Reason: IV FLUSH Stop: 07/18/20 17:00 Spironolactone (Aldactone) 25 mg PO ONETIME ONE Stop: 07/12/20 19:18 Last Admin: 07/12/20 19:38 Dose: 25 mg Documented by: Spironolactone (Aldactone) 25 mg PO ONETIME ONE Stop: 07/13/20 09:16 Last Admin: 07/13/20 09:50 Dose: 25 mg Documented by: Spironolactone (Aldactone) 25 mg PO DAILY ON LICENSE OF [facility] Spironolactone (Aldactone) 50 mg PO DAILY ON LICENSE OF [facility] Last Admin: 07/15/20 10:20 Dose: 50 mg Documented by: Thiamine HCl (Vitamin B-1) 100 mg PO DAILY ON LICENSE OF [facility] Vancomycin HCl (Pharmacy To Dose - Vancomycin) 1 dose .XX ASDIRECTED ON LICENSE OF [facility] Stop: 07/21/20 23:00 Vancomycin HCl (Vancocin) Confirm Administered Dose 1 gm .ROUTE .STK-MED ONE Stop: 07/17/20 21:34 Last Admin: 07/17/20 23:07 Dose: Not Given Documented by: Venlafaxine HCl (Effexor) 37.5 mg PO BID ON LICENSE OF [facility] - Exam Quality Assessment: No: Supplemental Oxygen, DVT Prophylaxis (contraindiacted) General: Alert, Cooperative, No Acute Distress. No: Oriented HEENT: Pupils Equal, Pupils Reactive, Mucous Membr. Moist/[place] Neck: Supple, Trachea Midline Lungs: Normal Respiratory Effort, Decreased Breath Sounds Cardiovascular: Regular Rate, Regular Rhythm GI/Abdominal Exam: Normal Bowel Sounds, Non-Tender, Distended (Male) Exam: Deferred Back Exam: Normal Inspection, Full Range of Motion Extremities: Normal Inspection, Normal Range of Motion, Non-Tender, Normal Capillary Refill, Pedal Edema Skin: Warm, Dry, Intact, Ecchymosis (Scattered ) Neurological: No New Focal Deficit Psy/Mental Status: Alert Sepsis Event Note - Evaluation Sepsis Screening Result: No Definite Risk - Focused Exam Vital Signs: Vital Signs Temp Pulse Resp BP Pulse Ox 07/26/20 04:17 97.5 F 84 18 106/55 L 86 L 07/26/20 00:05 97.5 F 80 20 112/56 L 91 L 07/25/20 20:53 97.9 F 80 20 108/57 L 89 L - Problem List & Annotations (1) Tobacco use disorder SNOMED Code(s): 950177871 Code(s): F17.200 - NICOTINE DEPENDENCE, UNSPECIFIED, UNCOMPLICATED Status: Chronic Priority: Medium Current Visit: No (2) History of alcohol abuse SNOMED Code(s): 298939968 Code(s): F10.11 - ALCOHOL ABUSE, IN REMISSION Status: Chronic Priority: Medium Current Visit: No (3) Esophageal varices without bleeding SNOMED Code(s): 71789083 Code(s): I85.00 - ESOPHAGEAL VARICES WITHOUT BLEEDING Status: Chronic Priority: Medium Current Visit: No Qualifiers: Esophageal varices type: unspecified type Qualified Code(s): I85.00 - Esophageal varices without bleeding (4) Failure to thrive SNOMED Code(s): 78673784 Code(s): UXR6051 - Status: Acute Priority: High Current Visit: Yes Qualifiers: Failure to thrive age range: in adult Qualified Code(s): R62.7 - Adult failure to thrive (5) Difficulty walking SNOMED Code(s): 632034609 Code(s): R26.2 - DIFFICULTY IN WALKING, NOT ELSEWHERE CLASSIFIED Status: Acute Priority: High Current Visit: Yes (6) Medical non-compliance SNOMED Code(s): 278938333 Code(s): Z91.19 - PATIENT'S NONCOMPLIANCE W OTH MEDICAL TREATMENT AND REGIMEN Status: Chronic Priority: High Current Visit: Yes (7) Serum ammonia increased SNOMED Code(s): 8912483 Code(s): E72.20 - DISORDER OF UREA CYCLE METABOLISM, UNSPECIFIED Status: Chronic Priority: High Current Visit: Yes (8) Anemia SNOMED Code(s): 792905085 Code(s): D64.9 - ANEMIA, UNSPECIFIED Status: Chronic Current Visit: Yes Qualifiers: Anemia type: bone marrow failure Bone marrow failure anemia type: unspecified bone marrow failure Qualified Code(s): D61.9 - Aplastic anemia, unspecified (9) Bilateral lower leg cellulitis SNOMED Code(s): 960403078 Code(s): L03.116 - CELLULITIS OF LEFT LOWER LIMB; L03.115 - CELLULITIS OF RIGHT LOWER LIMB Status: Acute Priority: High Current Visit: Yes (10) Cirrhosis of liver SNOMED Code(s): 93311222 Code(s): K74.60 - UNSPECIFIED CIRRHOSIS OF LIVER Status: Chronic Priority: High Current Visit: Yes Qualifiers: Hepatic cirrhosis type: alcoholic cirrhosis Ascites presence: with ascites Qualified Code(s): K70.31 - Alcoholic cirrhosis of liver with ascites (11) Dependent edema SNOMED Code(s): 325422471 Code(s): R60.9 - EDEMA, UNSPECIFIED Status: Acute Priority: High [facility] rent Visit: Yes (12) Elevated INR SNOMED Code(s): 818544227 Code(s): R79.1 - ABNORMAL COAGULATION PROFILE Status: Chronic Priority: Medium Current Visit: Yes (13) Hypokalemia SNOMED Code(s): 06756913 Code(s): E87.6 - HYPOKALEMIA Status: Resolved Priority: High Current Visit: Yes (14) Hyponatremia SNOMED Code(s): 90616691 Code(s): E87.1 - HYPO-OSMOLALITY AND HYPONATREMIA Status: Acute Priority: High Current Visit: Yes (15) Thrombocytopenia SNOMED Code(s): 724826324 Code(s): D69.6 - THROMBOCYTOPENIA, UNSPECIFIED Status: Chronic Priority: High Current Visit: Yes (16) Depression SNOMED Code(s): 46195453 Code(s): F32.9 - MAJOR DEPRESSIVE DISORDER, SINGLE EPISODE, UNSPECIFIED Status: Chronic Priority: Medium Current Visit: Yes Qualifiers: Depression Type: other depression Qualified Code(s): F32.89 - Other specified depressive episodes (17) Hepatic encephalopathy SNOMED Code(s): 28665169 Code(s): K72.90 - HEPATIC FAILURE, UNSPECIFIED WITHOUT COMA Status: Chronic Priority: High Current Visit: Yes (18) Lactic acidosis SNOMED Code(s): 03503228 Code(s): E87.2 - ACIDOSIS Status: Acute Priority: High Current Visit: Yes (19) Hypoxia SNOMED Code(s): 141673707 Code(s): R09.02 - HYPOXEMIA Status: Acute Priority: High Current Visit: Yes (20) Elevated d-dimer SNOMED Code(s): 500298002 Code(s): R79.89 - OTHER SPECIFIED ABNORMAL FINDINGS OF BLOOD CHEMISTRY Status: Acute Priority: High Current Visit: Yes (21) Respiratory failure SNOMED Code(s): 217398516 Code(s): J96.90 - RESPIRATORY FAILURE, UNSP, UNSP W HYPOXIA OR HYPERCAPNIA Status: Resolved Priority: High Current Visit: Yes Qualifiers: Chronicity: acute Respiratory failure complication: hypoxia Qualified Code(s): J96.01 - Acute respiratory failure with hypoxia (22) Suspected COVID-19 virus infection SNOMED Code(s): 473410720 Code(s): Z20.828 - CONTACT W AND EXPOSURE TO OTH VIRAL COMMUNICABLE DISEASES Status: Ruled-out Priority: High Current Visit: Yes (23) S/P thoracentesis SNOMED Code(s): 817559301, 96986639, 250859540 Code(s): Z98.890 - OTHER SPECIFIED POSTPROCEDURAL STATES Status: Acute Priority: Low Current Visit: Yes (24) Status post incision and drainage SNOMED Code(s): 010918662, 500783142 Code(s): Z98.890 - OTHER SPECIFIED POSTPROCEDURAL STATES Status: Acute Priority: Medium Current Visit: Yes (25) Hallucination, visual SNOMED Code(s): 38094380 Code(s): R44.1 - VISUAL HALLUCINATIONS Status: Acute Priority: High Current Visit: Yes - Problem List Review Problem List Initiated/Reviewed/Updated: Yes - Assessment Assessment:: 07/13/2020 - Day of Admission -64 yo Male who presents to ED on 07/12/20 with confusion and bilateral cellulitis -History of hepatic encephalopathy, End stage liver disease, ETOH abuse, Tobacco use, Esophageal varices with banding, depression, dependant edema -Patient admits to ED provider that he has not been taking his medications because he forgets -Denies any ETOH use for past 2 months (ETOH in ED was 0.00) -Kept in ED overnight due to bed shortage statewide and us being on diversion -Started on Vancomycin in ED foe cellulitis -Given lactulose, spironolactone, lasix, IV fluids, Xanax, vancomycin in ED -No WBC in ED, although likely cannot mount immunologic defense due to alcoholic bone marrow suppression -Sepsis criteria: -Bilateral cellulitis, No tachycardia, tachypnea, WBC, or fever -Hypotension likely 2/2 end stage liver failure, Lactate >2 likely 2/2 chronic ETOH abuse, Bilirubin >2 chronically, Platelets <100 chronically, INR elevated 2/2 End stage liver disease -Does not meet criteria -Per ED provider social work states patient apartment was very unkempt -Social work reports patient has been known to leave water running and burners on in apartment. Patient is being evicted. 07/14/2020 * Small improvement in cellulitis * Procalcitonin was negative at 0.05 * White count 6.1 and CRP 2.1 * Lactic acid is chronically elevated due to liver disease at 2.6. Total bilirubin elevated at 7.8 and direct bilirubin 3.8 * Oxygen requirement has increased to 4 L/min * Sodium chronically low at 131 07/15/2020 * Continued improvement in cellulitis * WBC remains WNL at 7.19 with CRP of 2.2 * Oxygen requirement has decreased to 2L * Blood cultures negative thus far * Sodium improved to 133 * Potassium 4.3 * Dr. Powell saw patient and recommends withholding patients effexor and monitoring * Patient remains quite confused 07/16/20 * Continue current treatment * Routine AM labs with Ammonia * Midodrine 5 mg po TIDAC * Remains confused with hallucinations (seeing squirrels inside his room) * May consider anti-psychotic medications if needed * Need Tele-psych consult 07/17/20 * Continue current treatment: Rocephin and Vancomycin * Routine AM labs * Offered I&D but patient refused * Wound culture on right ramos * Remains confused with hallucinations (seeing squirrels inside his room) * May consider anti-psychotic medications if needed * Need Tele-psych follow up * LOS > 96 HRS due to need for placement 07/18/20 * WBC improved to 10.41 from 11.68 * CRP 9.1 from 5.7 * Creatinine 1.4 with GFR of 51 * Requiring 6L O2 via NC * Wound culture showing no growth * MELD-Na score on admission calculated to be 29 points - 27-32% estimated 90- day mortality * D-Dimer 7.29 * BNP 1009 * INR 2.33 * CTA shows pleural effusions and ground glass opacities concerning for viral/atypical pneumonia\\ * Discussed plan with Dr. Castro - will start covid-19 treatment protocol 07/19/2020 * WBC 8.31 * CRP Up to 11.4 * Ferritin 513 * LDH 475 * Procalcitonin 0.43 * Creatinine 1.5, GFR 47 * INR 2.24 * On high flow oxygen * Thoracentesis performed today by Dr. Shipley with just over 1L clear straw colored output 07/20/2020 * Echo results show: * 1. LVEF, by visual estimation, is 65-70% * 2. Hyperdynamic left ventricular systolic function * 3. Verbally normal right ventricular systolic function and size, not well visualized. * 4. The aortic valve is not well visualized. * 5. Trace mitral valve regurgitation * 6. Trace tricuspid valve regurgitation. * 7. The right ventricular systolic pressure is unable to be determined. * 8. There is a pleural effusion * WBC 9.58 * CRP 10.2 * Sodium 130 and stable * Creatinine 1.5 and GFR 47 and stable * Awaiting thoracentesis culture * VRP negative * Covid-19 negative (4th time) * Discontinued COVID-19 treatment * Discontinue isolation precautions once off of high flow 07/21/2020 * WBC 10.17 * CRP 8.4 * Sodium 130 and stable * Creatinine 1.3 and GFR 55 * S/P I&D of right ramos with Dr. Cazares on 07/20/2020 * Purulent bloody drainage * No cultures sent due to patient being on abx for several days * O2 down to 4L * Thoracentesis cultures show no growth * Continue current treatment plan * Legs continue to improve 07/22/2020 * No labs done today * Patient is stable without any complaints * He has been weaned off of oxygen * Cultures continue to be negative 07/23/2020 * Patient is back really 1 on 1 to 2L nasal cannula given oral tolerated * Otherwise he is without complaints. 07/24/2020 * Currently on 1 L nasal cannula * White count 9.6 with moderate toxic granulation, hemoglobin * No complaints. * Currently on Keflex and doxycycline 07/25/2020 * Off of oxygen today * No new complaints - still reports foot and back pain * On Keflex - doxycycline was discontinued * Serosanguineous drainage from left hip * Sodium 129 and stable * Pending placement * [employer] evaluation on Saturday noted significant cognitive deficit. 04/17 on MOCA 07/26/2020 * Remains off of oxygen * Worsening pedal edema - weight up 14lbs on admission * Increase lasix dosing * No labs obtained today due to patient stability * Discontinue abx - completed therapy * SW continuing to work toward discharge plan - Plan Plan:: Bilateral cellulitis/Stasis Dermatitis, improving Dependant edema Small hematoma/abscess on right ramos Leukocytosis Hypoxemia S/P Right ramos I&D -Completed doxycycline -Discontinue Keflex - completed treatment -Monitor leg inflammation -Increase oral Lasix to 40 mg BID Diuretic with spironolactone 100 mg daily Failure to thrive Hypokalemia, resolved Hyponatremia, continues to improve Lactic Acidosis, likely resolved Medical non-compliance Hx/o hypomagnesemia Hypoalbuminemia, unchanged Relative Hypotension -Consult CM/SW -Will likely need placement at discharge -Supplier Manager consult -Monitor electrolytes/magnesium and supplement as needed -On Midodrine 5 mg po TID History of ETOH abuse Hepatic encephalopathy End-stage ETOH related cirrhosis Elevated INR Elevated Bilirubin Hx/o esophageal varices Thrombocytopenia Macrocytic Normochromic Anemia Elevated serum ammonia Hyperlactatemia -Continue Lactulose 30mg TID and Lasix 40 mg daily -Continue spironolactone 100mg daily -Pharmacological DVT prophylaxis contraindicated -Continue folic acid, MV, thiamine supplementation -Low protein diet -Consult quote clerk -Due to end-stage cirrhosis we can expect BPs on the lower side -hyperlactatemia is likely 2/2 to end-stage liver disease and chronic ETOH abuse. -Procalcitonin was 0.05 ruling out sepsis. Depression Hallucinations -Dr. Powell consulted - recommends starting Haldol -Discontinue Effexor Tobacco use disorder -Cessation counseling at discharge -Nicotine patches Code status: DNR/DNI PCP: Dr. Mccollum DVT prophylaxis: Pharmacological prophylaxis contraindicated due to significant esophageal varices history, Elevated INR, thrombocytopenia. Mechanical prophylaxis contraindicated due to bilateral LE cellulitis, dependant LE edema. Disposition: Patient admitted due to cellulitis, electrolyte abnormalities, radha lure to thrive and need for placement. Social: Patient reportedly lives in an apartment. [facility] is following patient. Patient has history of leaving water running and forgetting to turn of burner. Per ED note apartment is very unkempt and there are concerns for patient safety. SW/CM consulted. Prognosis: Overall poor prognosis due to end-stage ETOH cirrhosis. LOS >96 HRS due to need for placement
[2020-07-26] MEDS: Lactulose Soln 10 GM/15 ML 30 ML UD Cup PO SCH ×3 (09:53→20:37)
[2020-07-26] MEDS: Thiamine 100 MG Tab PO SCH (09:54)
[2020-07-26] MEDS: Spironolactone 100 MG Tab PO SCH (09:54)
[2020-07-26] MEDS: Furosemide 40 MG Tab PO SCH ×2 (09:55→14:48)
[2020-07-26] MEDS: Multivitamins,Therapeutic Tab PO SCH (09:55)
[2020-07-26] MEDS: Folic Acid 1 MG Tab PO SCH (09:55)
[2020-07-26] MEDS: Magnesium Oxide 400 MG Tab PO SCH (10:03)
[2020-07-26] MEDS ORDERED: Furosemide 20 MG/2 ML VIAL IVPUSH ONE (11:45)
[2020-07-26] MEDS: Nicotine 14 MG/24 Hr Patch TRDERM SCH (14:43)
[2020-07-26] MEDS: oxyCODONE 5 MG Tab PO PRN (14:47)
[2020-07-26] MEDS: Haloperidol 1 MG Tab PO SCH (20:36)
[2020-07-27] MEDS: Acetaminophen 325 MG Tab PO PRN ×2 (00:25→14:13)
[2020-07-27] MEDS: Furosemide 40 MG Tab PO SCH ×2 (06:46→14:13)
[2020-07-27] MEDS: Cephalexin 500 MG Cap PO SCH (06:47)
[2020-07-27] MEDS: Midodrine 5 MG Tab PO SCH ×3 (06:47→16:16)
[2020-07-27] MEDS: oxyCODONE 5 MG Tab PO PRN ×2 (06:47→23:42)
--- NOTE | 2020-07-27 07:28 | PCM.PN ---
- General Info Date of Service: 07/27/20 Admission Dx/Problem (Free Text): Admission Diagnosis/Problem Admission Diagnosis/Problem Cellulitis Subjective Update: In to see Mandeep. He remains quite confused. He has completed treatment for his cellulitis and SW continues to look into placement. As noted in prior notes given the evaluations by Dr. Powell, psychiatry and our speech language pathologist, in combination with my own clinical evaluation and the report on Mandeep's history, I am very concerned about his ability to care for himself. I, Alvin Encarnacion PA-C have personally evaluated Dalton Fletcher and have determined that he is incompetent due to his chronic encephalopathy, confusion, forgetfulness, and moderate to severe cognitive impairment. I agree with our speech language pathologist who recommends Mandeep have supervision for daily living activities, especially medication, financial and health management. I also recommend he should have a guardian, as he has no family oversight. I further agree with physical therapy and Occupational Therapy's evaluation and determination that Mandeep should be placed in a intermediate facility, as it is felt that this would be in his best interest for his overall health and wellbeing. Functional Status: Reports: Pain Controlled, Tolerating Diet, Ambulating, Urinating. Denies: New Symptoms - Review of Systems General: Reports: Weakness. Denies: Fever, Fatigue, Malaise, Chills HEENT: Reports: No Symptoms. Denies: Headaches, Sore Throat Pulmonary: Reports: No Symptoms. Denies: Shortness of Breath, Cough, Sputum, Wheezing Cardiovascular: Reports: Edema. Denies: Chest Pain, Palpitations, Dyspnea on Exertion Gastrointestinal: Reports: Decreased Appetite (improving ). Denies: Abdominal Pain, Constipation, Diarrhea, Nausea Genitourinary: Reports: No Symptoms. Denies: Pain Musculoskeletal: Reports: Leg Pain, Foot Pain Skin: Reports: No Symptoms. Denies: Cyanosis Neurological: Reports: Confusion, Pre-Existing Deficit, Difficulty Walking Psychiatric: Reports: No Symptoms - Patient Data Vitals - Most Recent: Last Vital Signs Temp 97.5 F 07/27/20 04:36 Pulse 82 07/27/20 04:37 Resp 20 07/27/20 04:36 BP 97/55 L 07/27/20 04:37 Pulse Ox 93 L 07/27/20 04:37 Weight - Most Recent: 198 lb 3.2 oz I&O - Last 24 Hours: Intake & Output 07/26/20 07/27/20 07/27/20 22:59 06:59 14:59 Intake Total 480 450 Output Total 150 Balance 480 300 Lab Results Last 24 Hours: Laboratory Results - last 24 hr 07/27/20 Range/Units 04:34 Sodium 129 L (136-145) mEq/L Potassium 4.2 (3.5-5.1) mEq/L Chloride 98 (98-107) mEq/L Carbon Dioxide 22 (21-32) mEq/L Anion Gap 13.2 (5-15) BUN 28 H (7-18) mg/dL Creatinine 1.4 H (0.7-1.3) mg/dL Est Cr Clr Drug Dosing 50.89 mL/min Estimated GFR (MDRD) 51 (>60) mL/min BUN/Creatinine Ratio 20.0 H (14-18) Glucose 103 (80-115) mg/dL Calcium 8.5 (8.5-10.1) mg/dL Phosphorus 3.9 (2.6-4.7) mg/dL Magnesium 2.0 (1.8-2.4) mg/dl Med Orders - Current: Current Medications Acetaminophen (Tylenol) 650 mg PO Q4H PRN PRN Reason: Pain/Fever Last Admin: 07/27/20 00:25 Dose: 650 mg Documented by: Folic Acid (Folic Acid) 1 mg PO DAILY [facility] Last Admin: 07/26/20 09:55 Dose: 1 mg Documented by: Furosemide (Lasix) 40 mg PO BIDDIURETIC [facility] Last Admin: 07/27/20 06:46 Dose: 40 mg Documented by: Haloperidol (Haldol) 2 mg PO BEDTIME [facility] Last Admin: 07/26/20 20:36 Dose: 2 mg Documented by: Lactulose (Cephulac) 30 gm PO TID [facility] Last Admin: 07/26/20 20:37 Dose: 30 gm Documented by: Magnesium Oxide (Magnesium Oxide) 800 mg PO 1100 [facility] Last Admin: 07/26/20 10:03 Dose: 800 mg Documented by: Melatonin (Melatonin) 3 mg PO BEDTIME PRN PRN Reason: insomnia Last Admin: 07/25/20 22:03 Dose: 3 mg Documented by: Midodrine (Midodrine) 5 mg PO TIDAC [facility] Last Admin: 07/27/20 06:47 Dose: 5 mg Documented by: Miscellaneous Information (Remove Patch) 0 ea TRDERM Q24H [facility] Last Admin: 07/26/20 14:43 Dose: 1 ea Documented by: Multivitamins (Thera) 1 each PO DAILY [facility] Last Admin: 07/26/20 09:55 Dose: 1 each Documented by: Nicotine (Habitrol) 14 mg TRDERM Q24H [facility] Last Admin: 07/26/20 14:43 Dose: 14 mg Documented by: Oxycodone HCl (Oxycodone) 5 mg PO Q6H PRN PRN Reason: Pain (moderate 4-6) Last Admin: 07/25/20 22:03 Dose: 5 mg Documented by: Oxycodone HCl (Oxycodone) 10 mg PO Q6H PRN PRN Reason: Pain (severe 7-10) Last Admin: 07/27/20 06:47 Dose: 10 mg Documented by: Spironolactone (Aldactone) 100 mg PO DAILY [facility] Last Admin: 07/26/20 09:54 Dose: 100 mg Documented by: Thiamine HCl (Vitamin B-1) 100 mg PO DAILY [facility] Last Admin: 07/26/20 09:54 Dose: 100 mg Documented by: Discontinued Medications Alprazolam (Xanax) 1 mg PO BEDTIME ONE Stop: 07/12/20 21:01 Last Admin: 07/12/20 21:24 Dose: 1 mg Documented by: Alprazolam (Xanax) 1 mg PO BEDTIME [facility] Cephalexin (Keflex) 500 mg PO Q8H [facility] Stop: 07/27/20 06:01 Last Admin: 07/27/20 06:47 Dose: 500 mg Documented by: Dexamethasone (Dexamethasone) 6 mg PO Q24H [facility] Stop: 07/27/20 16:01 Last Admin: 07/19/20 15:51 Dose: 6 mg Documented by: Doxycycline Hyclate (Vibramycin) 100 mg PO BID [facility] Last Admin: 07/25/20 08:40 Dose: 100 mg Documented by: Folic Acid (Folic Acid) 1 mg PO DAILY [facility] Furosemide (Lasix) 40 mg IVPUSH NOW ONE Stop: 07/12/20 19:17 Last Admin: 07/12/20 19:38 Dose: 40 mg Documented by: Furosemide (Lasix) 40 mg IVPUSH NOW ONE Stop: 07/13/20 09:15 Last Admin: 07/13/20 09:42 Dose: 40 mg Documented by: Furosemide (Lasix) 40 mg IVPUSH DAILY [facility] Furosemide (Lasix) 20 mg IVPUSH DAILY [facility] Last Admin: 07/14/20 10:10 Dose: 20 mg Documented by: Furosemide (Lasix) 40 mg IVPUSH DAILY [facility] Last Admin: 07/24/20 08:33 Dose: 40 mg Documented by: Furosemide (Lasix) 40 mg PO DAILY [facility] Last Admin: 07/26/20 09:55 Dose: 40 mg Documented by: Furosemide (Lasix) 20 mg IVPUSH NOW ONE Stop: 07/26/20 11:46 Last Admin: 07/26/20 11:45 Dose: 20 mg Documented by: Sodium Chloride (Normal Saline) 1,000 mls @ 125 mls/hr IV ASDIRECTED [facility] Last Admin: 07/12/20 17:03 Dose: 125 mls/hr Documented by: Vancomycin HCl 1.5 gm/ Sodium (Chloride) 500 mls @ 250 mls/hr IV ONETIME ONE Stop: 07/12/20 19:21 Last Admin: 07/12/20 20:07 Dose: 250 mls/hr Documented by: Vancomycin HCl 1 gm/ Sodium (Chloride) 250 mls @ 250 mls/hr IV Q12H [facility] Last Admin: 07/14/20 23:00 Dose: 250 mls/hr Documented by: Ceftriaxone Sodium 2 gm/ (Sodium Chloride) 100 mls @ 200 mls/hr IV Q24H [facility] Last Admin: 07/14/20 14:38 Dose: 200 mls/hr Documented by: Sodium Chloride (Normal Saline) 1,000 mls @ 100 mls/hr IV ASDIRECTED [facility] Stop: 07/15/20 00:59 Last Admin: 07/14/20 00:04 Dose: 100 mls/hr Documented by: Vancomycin HCl 1 gm/ Sodium (Chloride) 250 mls @ 250 mls/hr IV Q24H [facility] Stop: 07/21/20 23:00 Last Admin: 07/21/20 20:20 Dose: 250 mls/hr Documented by: Ceftriaxone Sodium 2 gm/ (Sodium Chloride) 100 mls @ 200 mls/hr IV Q24H [facility] Stop: 07/21/20 17:00 Last Admin: 07/21/20 15:10 Dose: 200 mls/hr Documented by: Sodium Chloride (Normal Saline) 100 mls @ 75 mls/hr IV ASDIRECTED [facility] Stop: 07/18/20 17:00 Azithromycin 500 mg/ Sodium (Chloride) 250 mls @ 250 mls/hr IV Q24H [facility] Last Admin: 07/20/20 15:19 Dose: 250 mls/hr Documented by: Remdesivir 200 mg/ Sodium (Chloride) 250 mls @ 250 mls/hr IV ONETIME ONE Stop: 07/18/20 17:29 Last Admin: 07/18/20 17:55 Dose: 250 mls/hr Documented by: Remdesivir 100 mg/ Sodium (Chloride) 100 mls @ 100 mls/hr IV Q24H [facility] Stop: 07/22/20 17:29 Last Admin: 07/19/20 17:14 Dose: 100 mls/hr Documented by: Iopamidol (Isovue-370 (76%)) 100 ml IVPUSH ONETIME ONE Stop: 07/18/20 13:38 Last Admin: 07/18/20 16:43 Dose: Not Given Documented by: Lactulose (Cephulac) 20 gm PO TID [facility] Last Admin: 07/13/20 15:46 Dose: Not Given Documented by: Lactulose (Cephulac) 20 gm PO TID [facility] Last Admin: 07/15/20 10:21 Dose: 20 gm Documented by: Lidocaine/Epinephrine (Xylocaine 1% With Epinephrine 1:100,000) 20 ml INJECT ONETIME ONE Stop: 07/20/20 13:31 Last Admin: 07/20/20 14:59 Dose: Not Given Documented by: Magnesium Oxide (Magnesium Oxide) 400 mg PO BID [facility] Stop: 07/21/20 23:00 Last Admin: 07/21/20 20:19 Dose: 400 mg Documented by: Non-Formulary Medication (Magnesium Oxide [Magnesium Oxide]) 400 mg PO DAILY [facility] Ondansetron HCl (Zofran) 4 mg IV Q6H PRN PRN Reason: Nausea/Vomiting Oxycodone HCl (Oxycodone) 5 - 10 mg PO Q6H PRN PRN Reason: Pain Potassium Chloride (Klor-Con M20) 40 meq PO TID [facility] Stop: 07/14/20 09:01 Last Admin: 07/14/20 10:09 Dose: 40 meq Documented by: Sodium Chloride (Saline Flush) 10 ml FLUSH ONETIME PRN PRN Reason: IV FLUSH Stop: 07/18/20 17:00 Spironolactone (Aldactone) 25 mg PO ONETIME ONE Stop: 07/12/20 19:18 Last Admin: 07/12/20 19:38 Dose: 25 mg Documented by: Spironolactone (Aldactone) 25 mg PO ONETIME ONE Stop: 07/13/20 09:16 Last Admin: 07/13/20 09:50 Dose: 25 mg Documented by: Spironolactone (Aldactone) 25 mg PO DAILY [facility] Spironolactone (Aldactone) 50 mg PO DAILY [facility] Last Admin: 07/15/20 10:20 Dose: 50 mg Documented by: Thiamine HCl (Vitamin B-1) 100 mg PO DAILY [facility] Vancomycin HCl (Pharmacy To Dose - Vancomycin) 1 dose .XX ASDIRECTED [facility] Stop: 07/21/20 23:00 Vancomycin HCl (Vancocin) Confirm Administered Dose 1 gm .ROUTE .STK-MED ONE Stop: 07/17/20 21:34 Last Admin: 07/17/20 23:07 Dose: Not Given Documented by: Venlafaxine HCl (Effexor) 37.5 mg PO BID MELISSA - Exam Quality Assessment: No: DVT Prophylaxis (Contraindicated ) General: Alert, Cooperative, No Acute Distress. No: Oriented HEENT: Pupils Equal, Pupils Reactive, Mucous Membr. Moist/[place], Scleral Icterus Neck: Supple, Trachea Midline Lungs: Normal Respiratory Effort, Decreased Breath Sounds Cardiovascular: Regular Rate, Regular Rhythm GI/Abdominal Exam: Normal Bowel Sounds, Non-Tender, Distended (Male) Exam: Deferred Back Exam: Normal Inspection, Full Range of Motion Extremities: Normal Range of Motion, Non-Tender, Pedal Edema Skin: Warm, Dry, Intact, Ecchymosis (Scattered ) Wound/Incisions: Dressing Dry and Intact Neurological: No New Focal Deficit Psy/Mental Status: Alert, Hallucinations (occasionally ). No: Labile Mood, Anxious, Depressed, Agitated Sepsis Event Note - Evaluation Sepsis Screening Result: No Definite Risk - Focused Exam Vital Signs: Vital Signs Temp Pulse Resp BP Pulse Ox Pulse Ox 07/27/20 04:37 82 97/55 L 93 L 07/27/20 04:36 97.5 F 81 20 96/56 L 93 L 07/27/20 00:04 77 107/56 L 92 L 07/26/20 20:25 97.7 F 78 20 121/70 91 L 07/26/20 19:54 94 L - Problem List & Annotations (1) Tobacco use disorder SNOMED Code(s): 723432508 Code(s): F17.200 - NICOTINE DEPENDENCE, UNSPECIFIED, UNCOMPLICATED Status: Chronic Priority: Medium Current Visit: No (2) History of alcohol abuse SNOMED Code(s): 321758405 Code(s): F10.11 - ALCOHOL ABUSE, IN REMISSION Status: Chronic Priority: Medium Current Visit: No (3) Esophageal varices without bleeding SNOMED Code(s): 92905426 Code(s): I85.00 - ESOPHAGEAL VARICES WITHOUT BLEEDING Status: Chronic Priority: Medium Current Visit: No Qualifiers: Esophageal varices type: unspecified type Qualified Code(s): I85.00 - Esophageal varices without bleeding (4) Failure to thrive SNOMED Code(s): 11690485 Code(s): GAP7286 - Status: Acute Priority: High Current Visit: Yes Qualifiers: Failure to thrive age range: in adult Qualified Code(s): R62.7 - Adult failure to thrive (5) Difficulty walking SNOMED Code(s): 896329029 Code(s): R26.2 - DIFFICULTY IN WALKING, NOT ELSEWHERE CLASSIFIED Status: Acute Priority: High Current Visit: Yes (6) Medical non-compliance SNOMED Code(s): 962152371 Code(s): Z91.19 - PATIENT'S NONCOMPLIANCE W OTH MEDICAL TREATMENT AND REGIMEN Status: Chronic Priority: High Current Visit: Yes (7) Serum ammonia increased SNOMED Code(s): 0420144 Code(s): E72.20 - DISORDER OF UREA CYCLE METABOLISM, UNSPECIFIED Status: Chronic Priority: High Current Visit: Yes (8) Anemia SNOMED Code(s): 358309704 Code(s): D64.9 - ANEMIA, UNSPECIFIED Status: Chronic Current Visit: Yes Qualifiers: Anemia type: bone marrow failure Bone marrow failure anemia type: unspecified bone marrow failure Qualified Code(s): D61.9 - Aplastic anemia, unspecified (9) Bilateral lower leg cellulitis SNOMED Code(s): 631524533 Code(s): L03.116 - CELLULITIS OF LEFT LOWER LIMB; L03.115 - CELLULITIS OF RIGHT LOWER LIMB Status: Acute Priority: High Current Visit: Yes (10) Cirrhosis of liver SNOMED Code(s): 18705398 Code(s): K74.60 - UNSPECIFIED CIRRHOSIS OF LIVER Status: Chronic Priority: High Current Visit: Yes Qualifiers: Hepatic cirrhosis type: alcoholic cirrhosis Ascites presence: with ascites Qualified Code(s): K70.31 - Alcoholic cirrhosis of liver with ascites (11) Dependent edema SNOMED Code(s): 287528542 Code(s): R60.9 - EDEMA, UNSPECIFIED Status: Acute Priority: High Current Visit: Yes (12) Elevated INR SNOMED Code(s): 318350113 Code(s): R79.1 - ABNORMAL COAGULATION PROFILE Status: Chronic Priority: Medium Current Visit: Yes (13) Hypokalemia SNOMED Code(s): 31585089 Code(s): E87.6 - HYPOKALEMIA Status: Resolved Priority: High Current Visit: Yes (14) Hyponatremia SNOMED Code(s): 90115922 Code(s): E87.1 - HYPO-OSMOLALITY AND HYPONATREMIA Status: Acute Priority: High Current Visit: Yes (15) Thrombocytopenia SNOMED Code(s): 134696718 Code(s): D69.6 - THROMBOCYTOPENIA, UNSPECIFIED Status: Chronic Priority: High Current Visit: Yes (16) Depression SNOMED Code(s): 39651413 Code(s): F32.9 - MAJOR DEPRESSIVE DISORDER, SINGLE EPISODE, UNSPECIFIED Status: Chronic Priority: Medium Current Visit: Yes Qualifiers: Depression Type: other depression Qualified Code(s): F32.89 - Other specified depressive episodes (17) Hepatic encephalopathy SNOMED Code(s): 87407058 Code(s): K72.90 - HEPATIC FAILURE, UNSPECIFIED WITHOUT COMA Status: Chronic Priority: High Current Visit: Yes (18) Lactic acidosis SNOMED Code(s): 27717291 Code(s): E87.2 - ACIDOSIS Status: Acute Priority: High Current Visit: Yes (19) Hypoxia SNOMED Code(s): 436983829 Code(s): R09.02 - HYPOXEMIA Status: Acute Priority: High Current Visit: Yes (20) Elevated d-dimer SNOMED Code(s): 443246232 Code(s): R79.89 - OTHER SPECIFIED ABNORMAL FINDINGS OF BLOOD CHEMISTRY Status: Acute Priority: High Current Visit: Yes (21) Respiratory failure SNOMED Code(s): 538086002 Code(s): J96.90 - RESPIRATORY FAILURE, UNSP, UNSP W HYPOXIA OR HYPERCAPNIA Status: Resolved Priority: High Current Visit: Yes Qualifiers: Chronicity: acute Respiratory failure complication: hypoxia Qualified Code(s): J96.01 - Acute respiratory failure with hypoxia (22) Suspected COVID-19 virus infection SNOMED Code(s): 763193372 Code(s): Z20.828 - CONTACT W AND EXPOSURE TO OTH VIRAL COMMUNICABLE DISEASES Status: Ruled-out Priority: High Current Visit: Yes (23) S/P thoracentesis SNOMED Code(s): 217411377, 68707500, 544545950 Code(s): Z98.890 - OTHER SPECIFIED POSTPROCEDURAL STATES Status: Acute Priority: Low Current Visit: Yes (24) Status post incision and drainage SNOMED Code(s): 542421065, 397216854 Code(s): Z98.890 - OTHER SPECIFIED POSTPROCEDURAL STATES Status: Acute Priority: Medium Current Visit: Yes (25) Hallucination, visual SNOMED Code(s): 60197020 Code(s): R44.1 - VISUAL HALLUCINATIONS Status: Acute Priority: High Current Visit: Yes - Problem List Review Problem List Initiated/Reviewed/Updated: Yes - My Orders Last 24 Hours: My Active Orders 07/26/20 14:00 Furosemide [Lasix] 40 mg PO BIDDIURETIC 07/28/20 05:11 BASIC METABOLIC PANEL,BMP [CHEM] AM MAGNESIUM [CHEM] AM 07/29/20 05:11 BASIC METABOLIC PANEL,BMP [CHEM] AM MAGNESIUM [CHEM] AM 07/30/20 05:11 BASIC METABOLIC PANEL,BMP [CHEM] AM MAGNESIUM [CHEM] AM - Assessment Assessment:: 07/13/2020 - Day of Admission -64 yo Male who presents to ED on 07/12/20 with confusion and bilateral celluli tis -History of hepatic encephalopathy, End stage liver disease, ETOH abuse, Tobacco use, Esophageal varices with banding, depression, dependant edema -Patient admits to ED provider that he has not been taking his medications because he forgets -Denies any ETOH use for past 2 months (ETOH in ED was 0.00) -Kept in ED overnight due to bed shortage statewide and us being on diversion -Started on Vancomycin in ED foe cellulitis -Given lactulose, spironolactone, lasix, IV fluids, Xanax, vancomycin in ED -No WBC in ED, although likely cannot mount immunologic defense due to alcoholic bone marrow suppression -Sepsis criteria: -Bilateral cellulitis, No tachycardia, tachypnea, WBC, or fever -Hypotension likely 2/2 end stage liver failure, Lactate >2 likely 2/2 chronic ETOH abuse, Bilirubin >2 chronically, Platelets <100 chronically, INR elevated 2/2 End stage liver disease -Does not meet criteria -Per ED provider social work states patient apartment was very unkempt -Social work reports patient has been known to leave water running and burners on in apartment. Patient is being evicted. 07/14/2020 * Small improvement in cellulitis * Procalcitonin was negative at 0.05 * White count 6.1 and CRP 2.1 * Lactic acid is chronically elevated due to liver disease at 2.6. Total bilirubin elevated at 7.8 and direct bilirubin 3.8 * Oxygen requirement has increased to 4 L/min * Sodium chronically low at 131 07/15/2020 * Continued improvement in cellulitis * WBC remains WNL at 7.19 with CRP of 2.2 * Oxygen requirement has decreased to 2L * Blood cultures negative thus far * Sodium improved to 133 * Potassium 4.3 * Dr. Powell saw patient and recommends withholding patients effexor and monitoring * Patient remains quite confused 07/16/20 * Continue current treatment * Routine AM labs with Ammonia * Midodrine 5 mg po TIDAC * Remains confused with hallucinations (seeing squirrels inside his room) * May consider anti-psychotic medications if needed * Need Tele-psych consult 07/17/20 * Continue current treatment: Rocephin and Vancomycin * Routine AM labs * Offered I&D but patient refused * Wound culture on right ramos * Remains confused with hallucinations (seeing squirrels inside his room) * May consider anti-psychotic medications if needed * Need Tele-psych follow up * LOS > 96 HRS due to need for placement 07/18/20 * WBC improved to 10.41 from 11.68 * CRP 9.1 from 5.7 * Creatinine 1.4 with GFR of 51 * Requiring 6L O2 via NC * Wound culture showing no growth * MELD-Na score on admission calculated to be 29 points - 27-32% estimated 90- day mortality * D-Dimer 7.29 * BNP 1009 * INR 2.33 * CTA shows pleural effusions and ground glass opacities concerning for viral/atypical pneumonia\ * Discussed plan with Dr. Castro - will start covid-19 treatment protocol 07/19/2020 * WBC 8.31 * CRP Up to 11.4 * Ferritin 513 * LDH 475 * Procalcitonin 0.43 * Creatinine 1.5, GFR 47 * INR 2.24 * On high flow oxygen * Thoracentesis performed today by Dr. Shipley with just over 1L clear straw colored output 07/20/2020 * Echo results show: * 1. LVEF, by visual estimation, is 65-70% * 2. Hyperdynamic left ventricular systolic function * 3. Verbally normal right ventricular systolic function and size, not well visualized. * 4. The aortic valve is not well visualized. * 5. Trace mitral valve regurgitation * 6. Trace tricuspid valve regurgitation. * 7. The right ventricular systolic pressure is unable to be determined. * 8. There is a pleural effusion * WBC 9.58 * CRP 10.2 * Sodium 130 and stable * Creatinine 1.5 and GFR 47 and stable * Awaiting thoracentesis culture * VRP negative * Covid-19 negative (4th time) * Discontinued COVID-19 treatment * Discontinue isolation precautions once off of high flow 07/21/2020 * WBC 10.17 * CRP 8.4 * Sodium 130 and stable * Creatinine 1.3 and GFR 55 * S/P I&D of right ramos with Dr. Cazares on 07/20/2020 * Purulent bloody drainage * No cultures sent due to patient being on abx for several days * O2 down to 4L * Thoracentesis cultures show no growth * Continue current treatment plan * Legs continue to improve 07/22/2020 * No labs done today * Patient is stable without any complaints * He has been weaned off of oxygen * Cultures continue to be negative 07/23/2020 * Patient is back really 1 on 1 to 2L nasal cannula given oral tolerated * Otherwise he is without complaints. 07/24/2020 * Currently on 1 L nasal cannula * White count 9.6 with moderate toxic granulation, hemoglobin * No complaints. * Currently on Keflex and doxycycline 07/25/2020 * Off of oxygen today * No new complaints - still reports foot and back pain * On Keflex - doxycycline was discontinued * Serosanguineous drainage from left hip * Sodium 129 and stable * Pending placement * CLINICAL EDUCATION ASSISTANT evaluation on Saturday noted significant cognitive deficit. 04/17 on MOCA 07/26/2020 * Remains off of oxygen * Worsening pedal edema - weight up 14lbs on admission * Increase lasix dosing * No labs obtained today due to patient stability * Discontinue abx - completed therapy * SW continuing to work toward discharge plan 08/07/20 * Remains sable and off of oxygen * Continue increased lasix dosing * Labs remain grossly stable * Will hold off checking labs tomorrow and consider re-check * Legs edematous but overall look good * SW continues to work on discharge plan - Plan Plan:: Bilateral cellulitis/Stasis Dermatitis, improving Dependant edema Small hematoma/abscess on right ramos Leukocytosis Hypoxemia S/P Right ramos I&D -Completed doxycycline -Completed Keflex -Monitor leg inflammation -Increase oral Lasix to 40 mg BID Diuretic with spironolactone 100 mg daily Failure to thrive Hypokalemia, resolved Hyponatremia, continues to improve Lactic Acidosis, likely resolved Medical non-compliance Hx/o hypomagnesemia Hypoalbuminemia, unchanged Relative Hypotension -Consult CM/SW -Will likely need placement at discharge -Supervisor Backfilling consult -Monitor electrolytes/magnesium and supplement as needed -On Midodrine 5 mg po TID History of ETOH abuse Hepatic encephalopathy End-stage ETOH related cirrhosis Elevated INR Elevated Bilirubin Hx/o esophageal varices Thrombocytopenia Macrocytic Normochromic Anemia Elevated serum ammonia Hyperlactatemia -Continue Lactulose 30mg TID and Lasix 40 mg daily -Continue spironolactone 100mg daily -Pharmacological DVT prophylaxis contraindicated -Continue folic acid, MV, thiamine supplementation -Low protein diet -Consult scales inspector -Due to end-stage cirrhosis we can expect BPs on the lower side -hyperlactatemia is likely 2/2 to end-stage liver disease and chronic ETOH abuse. -Procalcitonin was 0.05 ruling out sepsis. Depression Hallucinations -Dr. Powell consulted - recommends starting Haldol -Discontinue Effexor Tobacco use disorder -Cessation counseling at discharge -Nicotine patches Code status: DNR/DNI PCP: Dr. Mccollum DVT prophylaxis: Pharmacological prophylaxis contraindicated due to significant esophageal varices history, Elevated INR, thrombocytopenia. Mechanical prophylaxis contraindicated due to bilateral LE cellulitis, dependant LE edema. Disposition: Patient admitted due to cellulitis, electrolyte abnormalities, failure to thrive and need for placement. Social: Patient reportedly lives in an apartment. [facility] [employer] is following patient. Patient has history of leaving water running and forgetting to turn of burner. Per ED note apartment is very unkempt and there are concerns for patient safety. SW/CM consulted. Prognosis: Overall poor prognosis due to end-stage ETOH cirrhosis. LOS >96 HRS due to need for placement
[2020-07-27] MEDS: Spironolactone 100 MG Tab PO SCH (09:13)
[2020-07-27] MEDS: Folic Acid 1 MG Tab PO SCH (09:13)
[2020-07-27] MEDS: Multivitamins,Therapeutic Tab PO SCH (09:13)
[2020-07-27] MEDS: Thiamine 100 MG Tab PO SCH (09:13)
[2020-07-27] MEDS: Lactulose Soln 10 GM/15 ML 30 ML UD Cup PO SCH ×3 (09:15→21:18)
[2020-07-27] MEDS: Magnesium Oxide 400 MG Tab PO SCH (10:27)
[2020-07-27] MEDS: Nicotine 14 MG/24 Hr Patch TRDERM SCH (14:15)
[2020-07-27] MEDS: Haloperidol 1 MG Tab PO SCH (21:18)
[2020-07-28] MEDS: Midodrine 5 MG Tab PO SCH ×3 (06:45→16:14)
[2020-07-28] MEDS: Furosemide 40 MG Tab PO SCH ×2 (06:45→14:01)
[2020-07-28] MEDS: Lactulose Soln 10 GM/15 ML 30 ML UD Cup PO SCH ×3 (08:26→21:59)
[2020-07-28] MEDS: Multivitamins,Therapeutic Tab PO SCH (08:26)
[2020-07-28] MEDS: Spironolactone 100 MG Tab PO SCH (08:27)
[2020-07-28] MEDS: Folic Acid 1 MG Tab PO SCH (08:27)
[2020-07-28] MEDS: Thiamine 100 MG Tab PO SCH (08:27)
--- NOTE | 2020-07-28 10:29 | PCM.PN ---
- General Info Date of Service: 07/28/20 Admission Dx/Problem (Free Text): Admission Diagnosis/Problem Admission Diagnosis/Problem Cellulitis Subjective Update: Patient remains confused. He is aware that this is a hospital but does not know which state or city is located in. He also tells me the year is 1820, and ends our conversation telling me that the ghosts are coming today. Complains of pain in his left great toe and fifth toe. Functional Status: Reports: Pain Controlled, Tolerating Diet, Ambulating, Urinating, Incentive Spirometry - Review of Systems General: Reports: No Symptoms HEENT: Reports: Glasses Pulmonary: Reports: No Symptoms Cardiovascular: Reports: Edema (Generalized.) Gastrointestinal: Reports: No Symptoms Genitourinary: Reports: Incontinence Musculoskeletal: Reports: No Symptoms Skin: Reports: Jaundice Neurological: Reports: Confusion Psychiatric: Reports: Confusion - Patient Data Vitals - Most Recent: Last Vital Signs Temp 98.1 F 07/28/20 07:46 Pulse 75 07/28/20 07:46 Resp 20 07/28/20 07:46 BP 106/59 L 07/28/20 07:46 Pulse Ox 95 07/28/20 07:46 Weight - Most Recent: 196 lb I&O - Last 24 Hours: Intake & Output 07/27/20 07/28/20 07/28/20 22:59 06:59 14:59 Intake Total 500 750 Output Total 600 400 Balance -100 350 Med Orders - Current: Current Medications Acetaminophen (Tylenol) 650 mg PO Q4H PRN PRN Reason: Pain/Fever Last Admin: 07/27/20 14:13 Dose: 650 mg Documented by: Folic Acid (Folic Acid) 1 mg PO DAILY [facility] Last Admin: 07/28/20 08:27 Dose: 1 mg Documented by: Furosemide (Lasix) 40 mg PO BIDDIURETIC MELISSA Last Admin: 07/28/20 06:45 Dose: 40 mg Documented by: Haloperidol (Haldol) 2 mg PO BEDTIME [facility] Last Admin: 07/27/20 21:18 Dose: 2 mg Documented by: Lactulose (Cephulac) 30 gm PO TID MELISSA Last Admin: 07/28/20 08:26 Dose: 30 gm Documented by: Magnesium Oxide (Magnesium Oxide) 800 mg PO 1100 [facility] Last Admin: 07/27/20 10:27 Dose: 800 mg Documented by: Melatonin (Melatonin) 3 mg PO BEDTIME PRN PRN Reason: insomnia Last Admin: 07/25/20 22:03 Dose: 3 mg Documented by: Midodrine (Midodrine) 5 mg PO TIDAC [facility] Last Admin: 07/28/20 06:45 Dose: 5 mg Documented by: Miscellaneous Information (Remove Patch) 0 ea TRDERM Q24H [facility] Last Admin: 07/27/20 14:17 Dose: 1 ea Documented by: Multivitamins (Thera) 1 each PO DAILY [facility] Last Admin: 07/28/20 08:26 Dose: 1 each Documented by: Nicotine (Habitrol) 14 mg TRDERM Q24H [facility] Last Admin: 07/27/20 14:15 Dose: 14 mg Documented by: Oxycodone HCl (Oxycodone) 5 mg PO Q6H PRN PRN Reason: Pain (moderate 4-6) Last Admin: 07/27/20 23:42 Dose: 5 mg Documented by: Oxycodone HCl (Oxycodone) 10 mg PO Q6H PRN PRN Reason: Pain (severe 7-10) Last Admin: 07/27/20 06:47 Dose: 10 mg Documented by: Spironolactone (Aldactone) 100 mg PO DAILY [facility] Last Admin: 07/28/20 08:27 Dose: 100 mg Documented by: Thiamine HCl (Vitamin B-1) 100 mg PO DAILY [facility] Last Admin: 07/28/20 08:27 Dose: 100 mg Documented by: Discontinued Medications Alprazolam (Xanax) 1 mg PO BEDTIME ONE Stop: 07/12/20 21:01 Last Admin: 07/12/20 21:24 Dose: 1 mg Documented by: Alprazolam (Xanax) 1 mg PO BEDTIME [facility] Cephalexin (Keflex) 500 mg PO Q8H [facility] Stop: 07/27/20 06:01 Last Admin: 07/27/20 06:47 Dose: 500 mg Documented by: Dexamethasone (Dexamethasone) 6 mg PO Q24H [facility] Stop: 07/27/20 16:01 Last Admin: 07/19/20 15:51 Dose: 6 mg Documented by: Doxycycline Hyclate (Vibramycin) 100 mg PO BID [facility] Last Admin: 07/25/20 08:40 Dose: 100 mg Documented by: Folic Acid (Folic Acid) 1 mg PO DAILY [facility] Furosemide (Lasix) 40 mg IVPUSH NOW ONE Stop: 07/12/20 19:17 Last Admin: 07/12/20 19:38 Dose: 40 mg Documented by: Furosemide (Lasix) 40 mg IVPUSH NOW ONE Stop: 07/13/20 09:15 Last Admin: 07/13/20 09:42 Dose: 40 mg Documented by: Furosemide (Lasix) 40 mg IVPUSH DAILY [facility] Furosemide (Lasix) 20 mg IVPUSH DAILY [facility] Last Admin: 07/14/20 10:10 Dose: 20 mg Documented by: Furosemide (Lasix) 40 mg IVPUSH DAILY [facility] Last Admin: 07/24/20 08:33 Dose: 40 mg Documented by: Furosemide (Lasix) 40 mg PO DAILY [facility] Last Admin: 07/26/20 09:55 Dose: 40 mg Documented by: Furosemide (Lasix) 20 mg IVPUSH NOW ONE Stop: 07/26/20 11:46 Last Admin: 07/26/20 11:45 Dose: 20 mg Documented by: Sodium Chloride (Normal Saline) 1,000 mls @ 125 mls/hr IV ASDIRECTED [facility] Last Admin: 07/12/20 17:03 Dose: 125 mls/hr Documented by: Vancomycin HCl 1.5 gm/ Sodium (Chloride) 500 mls @ 250 mls/hr IV ONETIME ONE Stop: 07/12/20 19:21 Last Admin: 07/12/20 20:07 Dose: 250 mls/hr Documented by: Vancomycin HCl 1 gm/ Sodium (Chloride) 250 mls @ 250 mls/hr IV Q12H [facility] Last Admin: 07/14/20 23:00 Dose: 250 mls/hr Documented by: Ceftriaxone Sodium 2 gm/ (Sodium Chloride) 100 mls @ 200 mls/hr IV Q24H [facility] Last Admin: 07/14/20 14:38 Dose: 200 mls/hr Documented by: Sodium Chloride (Normal Saline) 1,000 mls @ 100 mls/hr IV ASDIRECTED [facility] Stop: 07/15/20 00:59 Last Admin: 07/14/20 00:04 Dose: 100 mls/hr Documented by: Vancomycin HCl 1 gm/ Sodium (Chloride) 250 mls @ 250 mls/hr IV Q24H [facility] Stop: 07/21/20 23:00 Last Admin: 07/21/20 20:20 Dose: 250 mls/hr Documented by: Ceftriaxone Sodium 2 gm/ (Sodium Chloride) 100 mls @ 200 mls/hr IV Q24H [facility] Stop: 07/21/20 17:00 Last Admin: 07/21/20 15:10 Dose: 200 mls/hr Documented by: Sodium Chloride (Normal Saline) 100 mls @ 75 mls/hr IV ASDIRECTED [facility] Stop: 07/18/20 17:00 Azithromycin 500 mg/ Sodium (Chloride) 250 mls @ 250 mls/hr IV Q24H [facility] Last Admin: 07/20/20 15:19 Dose: 250 mls/hr Documented by: Remdesivir 200 mg/ Sodium (Chloride) 250 mls @ 250 mls/hr IV ONETIME ONE Stop: 07/18/20 17:29 Last Admin: 07/18/20 17:55 Dose: 250 mls/hr Documented by: Remdesivir 100 mg/ Sodium (Chloride) 100 mls @ 100 mls/hr IV Q24H [facility] Stop: 07/22/20 17:29 Last Admin: 07/19/20 17:14 Dose: 100 mls/hr Documented by: Iopamidol (Isovue-370 (76%)) 100 ml IVPUSH ONETIME ONE Stop: 07/18/20 13:38 Last Admin: 07/18/20 16:43 Dose: Not Given Documented by: Lactulose (Cephulac) 20 gm PO TID [facility] Last Admin: 07/13/20 15:46 Dose: Not Given Documented by: Lactulose (Cephulac) 20 gm PO TID [facility] Last Admin: 07/15/20 10:21 Dose: 20 gm Documented by: Lidocaine/Epinephrine (Xylocaine 1% With Epinephrine 1:100,000) 20 ml INJECT ONETIME ONE Stop: 07/20/20 13:31 Last Admin: 07/20/20 14:59 Dose: Not Given Documented by: Magnesium Oxide (Magnesium Oxide) 400 mg PO BID [facility] Stop: 07/21/20 23:00 Last Admin: 07/21/20 20:19 Dose: 400 mg Documented by: Non-Formulary Medication (Magnesium Oxide [Magnesium Oxide]) 400 mg PO DAILY [facility] Ondansetron HCl (Zofran) 4 mg IV Q6H PRN PRN Reason: Nausea/Vomiting Oxycodone HCl (Oxycodone) 5 - 10 mg PO Q6H PRN PRN Reason: Pain Potassium Chloride (Klor-Con M20) 40 meq PO TID [facility] Stop: 07/14/20 09:01 Last Admin: 07/14/20 10:09 Dose: 40 meq Documented by: Sodium Chloride (Saline Flush) 10 ml FLUSH ONETIME PRN PRN Reason: IV FLUSH Stop: 07/18/20 17:00 Spironolactone (Aldactone) 25 mg PO ONETIME ONE Stop: 07/12/20 19:18 Last Admin: 07/12/20 19:38 Dose: 25 mg Documented by: Spironolactone (Aldactone) 25 mg PO ONETIME ONE Stop: 07/13/20 09:16 Last Admin: 07/13/20 09:50 Dose: 25 mg Documented by: Spironolactone (Aldactone) 25 mg PO DAILY [facility] Spironolactone (Aldactone) 50 mg PO DAILY [facility] Last Admin: 07/15/20 10:20 Dose: 50 mg Documented by: Thiamine HCl (Vitamin B-1) 100 mg PO DAILY [facility] Vancomycin HCl (Pharmacy To Dose - Vancomycin) 1 dose .XX ASDIRECTED [facility] Stop: 07/21/20 23:00 Vancomycin HCl (Vancocin) Confirm Administered Dose 1 gm .ROUTE .STK-MED ONE Stop: 07/17/20 21:34 Last Admin: 07/17/20 23:07 Dose: Not Given Documented by: Venlafaxine HCl (Effexor) 37.5 mg PO BID [facility] - Exam Quality Assessment: No: Supplemental Oxygen, DVT Prophylaxis General: Alert, Cooperative, No Acute Distress. No: Oriented (Oriented to self only.) HEENT: Pupils Equal, Pupils Reactive, Mucous Membr. Moist/[place] Neck: Supple, Trachea Midline. No: Lymphadenopathy Lungs: Clear to Auscultation, Normal Respiratory Effort Cardiovascular: Regular Rate, Regular Rhythm, No Murmurs GI/Abdominal Exam: Normal Bowel Sounds, Soft, Non-Tender, Other (Ascites) (Male) Exam: Deferred Back Exam: Normal Inspection, Full Range of Motion Extremities: Normal Inspection, Normal Range of Motion, Non-Tender, Pedal Edema (2+ pitting from ankle to hip bilaterally), Other (Left great toe erythematous distally) Peripheral Pulses: 2+: Radial (L), Radial (R), Dorsalis Pedis (L), Dorsalis Pedis (R) Skin: Warm, Dry, Intact Neurological: No New Focal Deficit Psy/Mental Status: Alert, Normal Affect, Normal Mood Sepsis Event Note - Evaluation Sepsis Screening Result: No Definite Risk - Focused Exam Vital Signs: Vital Signs Temp Pulse Resp BP Pulse Ox 07/28/20 07:46 98.1 F 75 20 106/59 L 95 07/28/20 03:34 97.3 F 88 20 97/60 92 L 07/27/20 23:48 98.1 F 77 20 106/61 92 L - Problem List & Annotations (1) Abscess of right leg SNOMED Code(s): 153880885 Code(s): L02.415 - CUTANEOUS ABSCESS OF RIGHT LOWER LIMB Status: Acute Priority: High Current Visit: Yes (2) Bilateral lower leg cellulitis SNOMED Code(s): 734559159 Code(s): L03.116 - CELLULITIS OF LEFT LOWER LIMB; L03.115 - CELLULITIS OF RIGHT LOWER LIMB Status: Acute Priority: High Current Visit: Yes (3) Dependent edema SNOMED Code(s): 128645117 Code(s): R60.9 - EDEMA, UNSPECIFIED Status: Acute Priority: High Current Visit: Yes (4) Difficulty walking SNOMED Code(s): 590595241 Code(s): R26.2 - DIFFICULTY IN WALKING, NOT ELSEWHERE CLASSIFIED Status: Acute Priority: High Current Visit: Yes (5) Elevated d-dimer SNOMED Code(s): 924892753 Code(s): R79.89 - OTHER SPECIFIED ABNORMAL FINDINGS OF BLOOD CHEMISTRY Status: Acute Priority: High Current Visit: Yes (6) Failure to thrive SNOMED Code(s): 95799119 Code(s): WTX9582 - Status: Acute Priority: High Current Visit: Yes Qualifiers: Failure to thrive age range: in adult Qualified Code(s): R62.7 - Adult failure to thrive (7) Hallucination, visual SNOMED Code(s): 61893812 Code(s): R44.1 - VISUAL HALLUCINATIONS Status: Acute Priority: High Current Visit: Yes (8) Hyponatremia SNOMED Code(s): 39755773 Code(s): E87.1 - HYPO-OSMOLALITY AND HYPONATREMIA Status: Acute Priority: High Current Visit: Yes (9) Hypoxia SNOMED Code(s): 319975112 Code(s): R09.02 - HYPOXEMIA Status: Acute Priority: High Current Visit: Yes (10) Lactic acidosis SNOMED Code(s): 47324989 Code(s): E87.2 - ACIDOSIS Status: Acute Priority: High Current Visit: Yes (11) S/P thoracentesis SNOMED Code(s): 321932379, 32702449, 299107879 Code(s): Z98.890 - OTHER SPECIFIED POSTPROCEDURAL STATES Status: Acute Priority: Low Current Visit: Yes (12) Status post incision and drainage SNOMED Code(s): 955182420, 757926303 Code(s): Z98.890 - OTHER SPECIFIED POSTPROCEDURAL STATES Status: Acute Priority: Medium Current Visit: Yes (13) Anemia SNOMED Code(s): 818649765 Code(s): D64.9 - ANEMIA, UNSPECIFIED Status: Chronic Priority: High Current Visit: Yes Qualifiers: Anemia type: bone marrow failure Bone marrow failure anemia type: uns pecified bone marrow failure Qualified Code(s): D61.9 - Aplastic anemia, unspecified (14) Cirrhosis of liver SNOMED Code(s): 79370614 Code(s): K74.60 - UNSPECIFIED CIRRHOSIS OF LIVER Status: Chronic Priority: High Current Visit: Yes Qualifiers: Hepatic cirrhosis type: alcoholic cirrhosis Ascites presence: with ascites Qualified Code(s): K70.31 - Alcoholic cirrhosis of liver with ascites (15) Depression SNOMED Code(s): 57937000 Code(s): F32.9 - MAJOR DEPRESSIVE DISORDER, SINGLE EPISODE, UNSPECIFIED Status: Chronic Priority: Medium Current Visit: Yes Qualifiers: Depression Type: other depression Qualified Code(s): F32.89 - Other specified depressive episodes (16) Elevated INR SNOMED Code(s): 456775309 Code(s): R79.1 - ABNORMAL COAGULATION PROFILE Status: Chronic Priority: Medium Current Visit: Yes (17) Hepatic encephalopathy SNOMED Code(s): 10896886 Code(s): K72.90 - HEPATIC FAILURE, UNSPECIFIED WITHOUT COMA Status: Chronic Priority: High Current Visit: Yes (18) Medical non-compliance SNOMED Code(s): 053285647 Code(s): Z91.19 - PATIENT'S NONCOMPLIANCE W OTH MEDICAL TREATMENT AND REGIMEN Status: Chronic Priority: High Current Visit: Yes (19) Serum ammonia increased SNOMED Code(s): 9735896 Code(s): E72.20 - DISORDER OF UREA CYCLE METABOLISM, UNSPECIFIED Status: Chronic Priority: High Current Visit: Yes (20) Thrombocytopenia SNOMED Code(s): 885392770 Code(s): D69.6 - THROMBOCYTOPENIA, UNSPECIFIED Status: Chronic Priority: High Current Visit: Yes (21) Hypokalemia SNOMED Code(s): 07101797 Code(s): E87.6 - HYPOKALEMIA Status: Resolved Priority: High Current Visit: Yes (22) Respiratory failure SNOMED Code(s): 344563227 Code(s): J96.90 - RESPIRATORY FAILURE, UNSP, UNSP W HYPOXIA OR HYPERCAPNIA Status: Resolved Priority: High Current Visit: Yes Qualifiers: Chronicity: acute Respiratory failure complication: hypoxia Qualified Code(s): J96.01 - Acute respiratory failure with hypoxia (23) Suspected COVID-19 virus infection SNOMED Code(s): 370999842 Code(s): Z20.828 - CONTACT W AND EXPOSURE TO OTH VIRAL COMMUNICABLE DISEASES Status: Ruled-out Priority: High Current Visit: Yes (24) Esophageal varices without bleeding SNOMED Code(s): 39718667 Code(s): I85.00 - ESOPHAGEAL VARICES WITHOUT BLEEDING Status: Chronic Priority: Medium Current Visit: No Qualifiers: Esophageal varices type: unspecified type Qualified Code(s): I85.00 - Esophageal varices without bleeding (25) History of alcohol abuse SNOMED Code(s): 117549477 Code(s): F10.11 - ALCOHOL ABUSE, IN REMISSION Status: Chronic Priority: Medium Current Visit: No (26) Tobacco use disorder SNOMED Code(s): 180015633 Code(s): F17.200 - NICOTINE DEPENDENCE, UNSPECIFIED, UNCOMPLICATED Status: Chronic Priority: Medium Current Visit: No - Problem List Review Problem List Initiated/Reviewed/Updated: Yes - Assessment Assessment:: 07/13/2020 - Day of Admission -64 yo Male who presents to ED on 07/12/20 with confusion and bilateral cellulitis -History of hepatic encephalopathy, End stage liver disease, ETOH abuse, Tobacco use, Esophageal varices with banding, depression, dependant edema -Patient admits to ED provider that he has not been taking his medications because he forgets -Denies any ETOH use for past 2 months (ETOH in ED was 0.00) -Kept in ED overnight due to bed shortage statewide and us being on diversion -Started on Vancomycin in ED foe cellulitis -Given lactulose, spironolactone, lasix, IV fluids, Xanax, vancomycin in ED -No WBC in ED, although likely cannot mount immunologic defense due to alcoholic bone marrow suppression -Sepsis criteria: -Bilateral cellulitis, No tachycardia, tachypnea, WBC, or fever -Hypotension likely 2/2 end stage liver failure, Lactate >2 likely 2/2 chronic ETOH abuse, Bilirubin >2 chronically, Platelets <100 chronically, INR elevated 2/2 End stage liver disease -Does not meet criteria -Per ED provider social work states patient apartment was very unkempt -Social work reports patient has been known to leave water running and burners on in apartment. Patient is being evicted. 07/14/2020 * Small improvement in cellulitis * Procalcitonin was negative at 0.05 * White count 6.1 and CRP 2.1 * Lactic acid is chronically elevated due to liver disease at 2.6. Total bilirubin elevated at 7.8 and direct bilirubin 3.8 * Oxygen requirement has increased to 4 L/min * Sodium chronically low at 131 07/15/2020 * Continued improvement in cellulitis * WBC remains WNL at 7.19 with CRP of 2.2 * Oxygen requirement has decreased to 2L * Blood cultures negative thus far * Sodium improved to 133 * Potassium 4.3 * Dr. Powell saw patient and recommends withholding patients effexor and monitoring * Patient remains quite confused 07/16/20 * Continue current treatment * Routine AM labs with Ammonia * Midodrine 5 mg po TIDAC * Remains confused with hallucinations (seeing squirrels inside his room) * May consider anti-psychotic medications if needed * Need Tele-psych consult 07/17/20 * Continue current treatment: Rocephin and Vancomycin * Routine AM labs * Offered I&D but patient refused * Wound culture on right ramos * Remains confused with hallucinations (seeing squirrels inside his room) * May consider anti-psychotic medications if needed * Need Tele-psych follow up * LOS > 96 HRS due to need for placement 07/18/20 * WBC improved to 10.41 from 11.68 * CRP 9.1 from 5.7 * Creatinine 1.4 with GFR of 51 * Requiring 6L O2 via NC * Wound culture showing no growth * MELD-Na score on admission calculated to be 29 points - 27-32% estimated 90- day mortality * D-Dimer 7.29 * BNP 1009 * INR 2.33 * CTA shows pleural effusions and ground glass opacities concerning for viral/atypical pneumonia\ * Discussed plan with Dr. Castro - will start covid-19 treatment protocol 07/19/2020 * WBC 8.31 * CRP Up to 11.4 * Ferritin 513 * LDH 475 * Procalcitonin 0.43 * Creatinine 1.5, GFR 47 * INR 2.24 * On high flow oxygen * Thoracentesis performed today by Dr. Shipley with just over 1L clear straw colored output 07/20/2020 * Echo results show: * 1. LVEF, by visual estimation, is 65-70% * 2. Hyperdynamic left ventricular systolic function * 3. Verbally normal right ventricular systolic function and size, not well visualized. * 4. The aortic valve is not well visualized. * 5. Trace mitral valve regurgitation * 6. Trace tricuspid valve regurgitation. * 7. The right ventricular systolic pressure is unable to be determined. * 8. There is a pleural effusion * WBC 9.58 * CRP 10.2 * Sodium 130 and stable * Creatinine 1.5 and GFR 47 and stable * Awaiting thoracentesis culture * VRP negative * Covid-19 negative (4th time) * Discontinued COVID-19 treatment * Discontinue isolation precautions once off of high flow 07/21/2020 * WBC 10.17 * CRP 8.4 * Sodium 130 and stable * Creatinine 1.3 and GFR 55 * S/P I&D of right ramos with Dr. Cazares on 07/20/2020 * Purulent bloody drainage * No cultures sent due to patient being on abx for several days * O2 down to 4L * Thoracentesis cultures show no growth * Continue current treatment plan * Legs continue to improve 07/22/2020 * No labs done today * Patient is stable without any complaints * He has been weaned off of oxygen * Cultures continue to be negative 07/23/2020 * Patient is back really 1 on 1 to 2L nasal cannula given oral tolerated * Otherwise he is without complaints. 07/24/2020 * Currently on 1 L nasal cannula * White count 9.6 with moderate toxic granulation, hemoglobin * No complaints. * Currently on Keflex and doxycycline 07/25/2020 * Off of oxygen today * No new complaints - still reports foot and back pain * On Keflex - doxycycline was discontinued * Serosanguineous drainage from left hip * Sodium 129 and stable * Pending placement * LAUNDRY SORTER evaluation on Saturday noted significant cognitive deficit. 04/17 on MOCA 07/26/2020 * Remains off of oxygen * Worsening pedal edema - weight up 14lbs on admission * Increase lasix dosing * No labs obtained today due to patient stability * Discontinue abx - completed therapy * SW continuing to work toward discharge plan 08/07/20 * Remains sable and off of oxygen * Continue increased lasix dosing * Labs remain grossly stable * Will hold off checking labs tomorrow and consider re-check * Legs edematous but overall look good * SW continues to work on discharge plan 07/28/20 * Generalized edema still noted. Continue Lasix. * No labs drawn today. * Dressing intact to right lower extremity. * Complains of pain to left great toe and fifth digit. Left great toe is reddened but there are no open areas and no drainage noted. Patient reports that he stubbed that toe, however I cannot assess the certainty of this due to the patient's cognition and lack of orientation. - Plan Plan:: Bilateral cellulitis/Stasis Dermatitis, improving Dependant edema Small hematoma/abscess on right ramos Leukocytosis Hypoxemia S/P Right ramos I&D -Completed doxycycline -Completed Keflex -Monitor leg inflammation -Increase oral Lasix to 40 mg BID Diuretic with spironolactone 100 mg daily Failure to thrive Hypokalemia, resolved Hyponatremia, continues to improve Lactic Acidosis, likely resolved Medical non-compliance Hx/o hypomagnesemia Hypoalbuminemia, unchanged Relative Hypotension -Consult CM/SW -student services counselor working on placement as patient is not safe to be discharged home alone. 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 -Procalcitonin was 0.05 ruling out sepsis. Depression Hallucinations -Dr. Powell consulted and started the patient on Haldol, patient tolerating this well. -Discontinue Effexor Tobacco use disorder -Cessation counseling at discharge -Nicotine patches Code status: DNR/DNI PCP: Dr. Mccollum DVT prophylaxis: Pharmacological prophylaxis contraindicated due to significant esophageal varices history, Elevated INR, thrombocytopenia. Mechanical prophylaxis contraindicated due to bilateral LE cellulitis, dependant LE edema. Disposition: Patient admitted due to cellulitis, electrolyte abnormalities, failure to thrive and need for placement. Social: Patient reportedly lives in an apartment. [facility] Gaming Manager is following patient. Patient has history of leaving water running and forgetting to turn of burner. Per ED note apartment is very unkempt and there are concerns for patient safety. SW/CM consulted. Prognosis: Overall poor prognosis due to end-stage ETOH cirrhosis. LOS >96 HRS due to need for placement
[2020-07-28] MEDS ORDERED: Ondansetron 4 MG/2 ML SDV ONE (11:02)
[2020-07-28] MEDS: Ondansetron 4 MG Tab.DIS PO PRN (11:18)
[2020-07-28] MEDS: Magnesium Oxide 400 MG Tab PO SCH (12:30)
[2020-07-28] MEDS: Nicotine 14 MG/24 Hr Patch TRDERM SCH (14:01)
[2020-07-28] MEDS: Haloperidol 1 MG Tab PO SCH (21:59)
[2020-07-29] MEDS: Midodrine 5 MG Tab PO SCH ×3 (06:04→17:37)
[2020-07-29] MEDS: Furosemide 40 MG Tab PO SCH ×2 (06:04→15:01)
--- NOTE | 2020-07-29 07:38 | PCM.PN ---
<Alvin Encarnacion - Last Filed: 07/29/20 11:25> - General Info Date of Service: 07/29/20 Admission Dx/Problem (Free Text): Admission Diagnosis/Problem Admission Diagnosis/Problem Cellulitis Subjective Update: Mandeep remains pleasant and confused. Continues to complain of pain in his feet. Legs continue to be edematous. Sodium down to 126 today. Patient is asymptomatic. Will re-check tomorrow. Fluid restriction placed. Pending placement. Functional Status: Reports: Pain Controlled, Tolerating Diet, Ambulating, Urinating. Denies: New Symptoms - Review of Systems General: Reports: No Symptoms. Denies: Fever, Weakness, Fatigue, Malaise, Chills HEENT: Reports: No Symptoms. Denies: Headaches, Sore Throat Pulmonary: Reports: No Symptoms. Denies: Shortness of Breath, Pleuritic Chest Pain, Cough, Sputum, Wheezing Cardiovascular: Reports: Edema. Denies: Chest Pain, Palpitations, Dyspnea on Exertion Gastrointestinal: Reports: No Symptoms. Denies: Abdominal Pain, Constipation, Diarrhea, Nausea, Vomiting Genitourinary: Reports: Incontinence. Denies: Pain Musculoskeletal: Reports: Foot Pain Skin: Reports: Jaundice. Denies: Cyanosis Neurological: Reports: Confusion, Pre-Existing Deficit. Denies: Headache, Numbness, Tingling, Difficulty Walking, Weakness, Gait Disturbance Psychiatric: Reports: No Symptoms. Denies: Depression, Mood Lability, Anxiety, Agitation - Patient Data Vitals - Most Recent: Last Vital Signs Temp 97.5 F 07/29/20 01:18 Pulse 78 07/29/20 01:18 Resp 18 07/29/20 01:18 BP 110/58 L 07/29/20 01:18 Pulse Ox 93 L 07/29/20 01:18 Weight - Most Recent: 88.451 kg I&O - Last 24 Hours: Intake & Output 07/28/20 07/29/20 07/29/20 22:59 06:59 14:59 Intake Total 600 1600 Output Total 500 Balance 100 1600 Lab Results Last 24 Hours: Laboratory Results - last 24 hr 07/29/20 Range/Units 04:23 Sodium 126 L (136-145) mEq/L Potassium 4.3 (3.5-5.1) mEq/L Chloride 95 L (98-107) mEq/L Carbon Dioxide 23 (21-32) mEq/L Anion Gap 12.3 (5-15) BUN 26 H (7-18) mg/dL Creatinine 1.4 H (0.7-1.3) mg/dL Est Cr Clr Drug Dosing 50.89 mL/min Estimated GFR (MDRD) 51 (>60) mL/min BUN/Creatinine Ratio 18.6 H (14-18) Glucose 98 (80-115) mg/dL Calcium 8.7 (8.5-10.1) mg/dL Med Orders - Current: Current Medications Acetaminophen (Tylenol) 650 mg PO Q4H PRN PRN Reason: Pain/Fever Last Admin: 07/27/20 14:13 Dose: 650 mg Documented by: Folic Acid (Folic Acid) 1 mg PO DAILY [facility] Last Admin: 07/28/20 08:27 Dose: 1 mg Documented by: Furosemide (Lasix) 40 mg PO BIDDIURETIC [facility] Last Admin: 07/29/20 06:04 Dose: 40 mg Documented by: Haloperidol (Haldol) 2 mg PO BEDTIME [facility] Last Admin: 07/28/20 21:59 Dose: 2 mg Documented by: Lactulose (Cephulac) 30 gm PO TID [facility] Last Admin: 07/28/20 21:59 Dose: 30 gm Documented by: Magnesium Oxide (Magnesium Oxide) 800 mg PO 1100 [facility] Last Admin: 07/28/20 12:30 Dose: 800 mg Documented by: Melatonin (Melatonin) 3 mg PO BEDTIME PRN PRN Reason: insomnia Last Admin: 07/25/20 22:03 Dose: 3 mg Documented by: Midodrine (Midodrine) 5 mg PO TIDAC [facility] Last Admin: 07/29/20 06:04 Dose: 5 mg Documented by: Miscellaneous Information (Remove Patch) 0 ea TRDERM Q24H [facility] Last Admin: 07/28/20 14:01 Dose: 1 ea Documented by: Multivitamins (Thera) 1 each PO DAILY [facility] Last Admin: 07/28/20 08:26 Dose: 1 each Documented by: Nicotine (Habitrol) 14 mg TRDERM Q24H [facility] Last Admin: 07/28/20 14:01 Dose: 14 mg Documented by: Ondansetron HCl (Zofran Odt) 4 mg PO Q4H PRN PRN Reason: Nausea/Vomiting Last Admin: 07/28/20 11:18 Dose: 4 mg Documented by: Oxycodone HCl (Oxycodone) 5 mg PO Q6H PRN PRN Reason: Pain (moderate 4-6) Last Admin: 07/27/20 23:42 Dose: 5 mg Documented by: Oxycodone HCl (Oxycodone) 10 mg PO Q6H PRN PRN Reason: Pain (severe 7-10) Last Admin: 07/27/20 06:47 Dose: 10 mg Documented by: Spironolactone (Aldactone) 100 mg PO DAILY [facility] Last Admin: 07/28/20 08:27 Dose: 100 mg Documented by: Thiamine HCl (Vitamin B-1) 100 mg PO DAILY [facility] Last Admin: 07/28/20 08:27 Dose: 100 mg Documented by: Discontinued Medications Alprazolam (Xanax) 1 mg PO BEDTIME ONE Stop: 07/12/20 21:01 Last Admin: 07/12/20 21:24 Dose: 1 mg Documented by: Alprazolam (Xanax) 1 mg PO BEDTIME [facility] Cephalexin (Keflex) 500 mg PO Q8H [facility] Stop: 07/27/20 06:01 Last Admin: 07/27/20 06:47 Dose: 500 mg Documented by: Dexamethasone (Dexamethasone) 6 mg PO Q24H [facility] Stop: 07/27/20 16:01 Last Admin: 07/19/20 15:51 Dose: 6 mg Documented by: Doxycycline Hyclate (Vibramycin) 100 mg PO BID [facility] Last Admin: 07/25/20 08:40 Dose: 100 mg Documented by: Folic Acid (Folic Acid) 1 mg PO DAILY [facility] Furosemide (Lasix) 40 mg IVPUSH NOW ONE Stop: 07/12/20 19:17 Last Admin: 07/12/20 19:38 Dose: 40 mg Documented by: Furosemide (Lasix) 40 mg IVPUSH NOW ONE Stop: 07/13/20 09:15 Last Admin: 07/13/20 09:42 Dose: 40 mg Documented by: Furosemide (Lasix) 40 mg IVPUSH DAILY [facility] Furosemide (Lasix) 20 mg IVPUSH DAILY [facility] Last Admin: 07/14/20 10:10 Dose: 20 mg Documented by: Furosemide (Lasix) 40 mg IVPUSH DAILY [facility] Last Admin: 07/24/20 08:33 Dose: 40 mg Documented by: Furosemide (Lasix) 40 mg PO DAILY [facility] Last Admin: 07/26/20 09:55 Dose: 40 mg Documented by: Furosemide (Lasix) 20 mg IVPUSH NOW ONE Stop: 07/26/20 11:46 Last Admin: 07/26/20 11:45 Dose: 20 mg Documented by: Sodium Chloride (Normal Saline) 1,000 mls @ 125 mls/hr IV ASDIRECTED [facility] Last Admin: 07/12/20 17:03 Dose: 125 mls/hr Documented by: Vancomycin HCl 1.5 gm/ Sodium (Chloride) 500 mls @ 250 mls/hr IV ONETIME ONE Stop: 07/12/20 19:21 Last Admin: 07/12/20 20:07 Dose: 250 mls/hr Documented by: Vancomycin HCl 1 gm/ Sodium (Chloride) 250 mls @ 250 mls/hr IV Q12H [facility] Last Admin: 07/14/20 23:00 Dose: 250 mls/hr Documented by: Ceftriaxone Sodium 2 gm/ (Sodium Chloride) 100 mls @ 200 mls/hr IV Q24H [facility] Last Admin: 07/14/20 14:38 Dose: 200 mls/hr Documented by: Sodium Chloride (Normal Saline) 1,000 mls @ 100 mls/hr IV ASDIRECTED [facility] Stop: 07/15/20 00:59 Last Admin: 07/14/20 00:04 Dose: 100 mls/hr Documented by: Vancomycin HCl 1 gm/ Sodium (Chloride) 250 mls @ 250 mls/hr IV Q24H [facility] Stop: 07/21/20 23:00 Last Admin: 07/21/20 20:20 Dose: 250 mls/hr Documented by: Ceftriaxone Sodium 2 gm/ (Sodium Chloride) 100 mls @ 200 mls/hr IV Q24H [facility] Stop: 07/21/20 17:00 Last Admin: 07/21/20 15:10 Dose: 200 mls/hr Documented by: Sodium Chloride (Normal Saline) 100 mls @ 75 mls/hr IV ASDIRECTED [facility] Stop: 07/18/20 17:00 Azithromycin 500 mg/ Sodium (Chloride) 250 mls @ 250 mls/hr IV Q24H [facility] Last Admin: 07/20/20 15:19 Dose: 250 mls/hr Documented by: Remdesivir 200 mg/ Sodium (Chloride) 250 mls @ 250 mls/hr IV ONETIME ONE Stop: 07/18/20 17:29 Last Admin: 07/18/20 17:55 Dose: 250 mls/hr Documented by: Remdesivir 100 mg/ Sodium (Chloride) 100 mls @ 100 mls/hr IV Q24H [facility] Stop: 07/22/20 17:29 Last Admin: 07/19/20 17:14 Dose: 100 mls/hr Documented by: Iopamidol (Isovue-370 (76%)) 100 ml IVPUSH ONETIME ONE Stop: 07/18/20 13:38 Last Admin: 07/18/20 16:43 Dose: Not Given Documented by: Lactulose (Cephulac) 20 gm PO TID [facility] Last Admin: 07/13/20 15:46 Dose: Not Given Documented by: Lactulose (Cephulac) 20 gm PO TID [facility] Last Admin: 07/15/20 10:21 Dose: 20 gm Documented by: Lidocaine/Epinephrine (Xylocaine 1% With Epinephrine 1:100,000) 20 ml INJECT ONETIME ONE Stop: 07/20/20 13:31 Last Admin: 07/20/20 14:59 Dose: Not Given Documented by: Magnesium Oxide (Magnesium Oxide) 400 mg PO BID [facility] Stop: 07/21/20 23:00 Last Admin: 07/21/20 20:19 Dose: 400 mg Documented by: Non-Formulary Medication (Magnesium Oxide [Magnesium Oxide]) 400 mg PO DAILY [facility] Ondansetron HCl (Zofran) 4 mg IV Q6H PRN PRN Reason: Nausea/Vomiting Ondansetron HCl (Zofran) Confirm Administered Dose 4 mg .ROUTE .STK-MED ONE Stop: 07/28/20 11:03 Last Admin: 07/28/20 12:36 Dose: Not Given Documented by: Oxycodone HCl (Oxycodone) 5 - 10 mg PO Q6H PRN PRN Reason: Pain Potassium Chloride (Klor-Con M20) 40 meq PO TID MELISSA Stop: 07/14/20 09:01 Last Admin: 07/14/20 10:09 Dose: 40 meq Documented by: Sodium Chloride (Saline Flush) 10 ml FLUSH ONETIME PRN PRN Reason: IV FLUSH Stop: 07/18/20 17:00 Spironolactone (Aldactone) 25 mg PO ONETIME ONE Stop: 07/12/20 19:18 Last Admin: 07/12/20 19:38 Dose: 25 mg Documented by: Spironolactone (Aldactone) 25 mg PO ONETIME ONE Stop: 07/13/20 09:16 Last Admin: 07/13/20 09:50 Dose: 25 mg Documented by: Spironolactone (Aldactone) 25 mg PO DAILY [facility] Spironolactone (Aldactone) 50 mg PO DAILY [facility] Last Admin: 07/15/20 10:20 Dose: 50 mg Documented by: Thiamine HCl (Vitamin B-1) 100 mg PO DAILY [facility] Vancomycin HCl (Pharmacy To Dose - Vancomycin) 1 dose .XX ASDIRECTED [facility] Stop: 07/21/20 23:00 Vancomycin HCl (Vancocin) Confirm Administered Dose 1 gm .ROUTE .STK-MED ONE Stop: 07/17/20 21:34 Last Admin: 07/17/20 23:07 Dose: Not Given Documented by: Venlafaxine HCl (Effexor) 37.5 mg PO BID [facility] - Exam Quality Assessment: No: Supplemental Oxygen, Urine Catheter, DVT Prophylaxis (Contraindicated ) General: Alert, Cooperative, No Acute Distress. No: Oriented HEENT: Pupils Equal, Pupils Reactive, Mucous Membr. Moist/[place], Scleral Icterus Neck: Supple, Trachea Midline Lungs: Clear to Auscultation, Normal Respiratory Effort Cardiovascular: Regular Rate, Regular Rhythm GI/Abdominal Exam: Normal Bowel Sounds, Soft, Non-Tender, No Distention (Male) Exam: Deferred Back Exam: Normal Inspection, Full Range of Motion Extremities: Normal Range of Motion, Pedal Edema, Leg Pain. No: Increased Warmth, Redness Skin: Warm, Dry, Intact Neurological: No New Focal Deficit Psy/Mental Status: Alert Sepsis Event Note - Evaluation Sepsis Screening Result: No Definite Risk - Focused Exam Vital Signs: Vital Signs Temp Pulse Resp BP Pulse Ox 07/29/20 01:18 97.5 F 78 18 110/58 L 93 L 07/28/20 19:50 97.7 F 82 19 111/66 92 L - Problem List & Annotations (1) Tobacco use disorder SNOMED Code(s): 859453387 Code(s): F17.200 - NICOTINE DEPENDENCE, UNSPECIFIED, UNCOMPLICATED Status: Chronic Priority: Medium Current Visit: No (2) History of alcohol abuse SNOMED Code(s): 274291348 Code(s): F10.11 - ALCOHOL ABUSE, IN REMISSION Status: Chronic Priority: Medium Current Visit: No (3) Esophageal varices without bleeding SNOMED Code(s): 91986431 Code(s): I85.00 - ESOPHAGEAL VARICES WITHOUT BLEEDING Status: Chronic Priority: Medium Current Visit: No Qualifiers: Esophageal varices type: unspecified type Qualified Code(s): I85.00 - Esophageal varices without bleeding (4) Failure to thrive SNOMED Code(s): 82496050 Code(s): NHV9653 - Status: Acute Priority: High Current Visit: Yes Qualifiers: Failure to thrive age range: in adult Qualified Code(s): R62.7 - Adult failure to thrive (5) Difficulty walking SNOMED Code(s): 702118599 Code(s): R26.2 - DIFFICULTY IN WALKING, NOT ELSEWHERE CLASSIFIED Status: Acute Priority: High Current Visit: Yes (6) Medical non-compliance SNOMED Code(s): 144338694 Code(s): Z91.19 - PATIENT'S NONCOMPLIANCE W OTH MEDICAL TREATMENT AND REGIMEN Status: Chronic Priority: High Current Visit: Yes (7) Serum ammonia increased SNOMED Code(s): 7573685 Code(s): E72.20 - DISORDER OF UREA CYCLE METABOLISM, UNSPECIFIED Status: Chronic Priority: High Current Visit: Yes (8) Anemia SNOMED Code(s): 545525364 Code(s): D64.9 - ANEMIA, UNSPECIFIED Status: Chronic Priority: High Current Visit: Yes Qualifiers: Anemia type: bone marrow failure Bone marrow failure anemia type: unspecified bone marrow failure Qualified Code(s): D61.9 - Aplastic anemia, unspecified (9) Bilateral lower leg cellulitis SNOMED Code(s): 576523139 Code(s): L03.116 - CELLULITIS OF LEFT LOWER LIMB; L03.115 - CELLULITIS OF RIGHT LOWER LIMB Status: Acute Priority: High Current Visit: Yes (10) Cirrhosis of liver SNOMED Code(s): 03719256 Code(s): K74.60 - UNSPECIFIED CIRRHOSIS OF LIVER Status: Chronic Priority: High Current Visit: Yes Qualifiers: Hepatic cirrhosis type: alcoholic cirrhosis Ascites presence: with ascites Qualified Code(s): K70.31 - Alcoholic cirrhosis of liver with ascites (11) Dependent edema SNOMED Code(s): 710374124 Code(s): R60.9 - EDEMA, UNSPECIFIED Status: Acute Priority: High Current Visit: Yes (12) Elevated INR SNOMED Code(s): 831017541 Code(s): R79.1 - ABNORMAL COAGULATION PROFILE Status: Chronic Priority: Medium Current Visit: Yes (13) Hypokalemia SNOMED Code(s): 42153167 Code(s): E87.6 - HYPOKALEMIA Status: Resolved Priority: High Current Visit: Yes (14) Hyponatremia SNOMED Code(s): 93292087 Code(s): E87.1 - HYPO-OSMOLALITY AND HYPONATREMIA Status: Acute Priority: High Current Visit: Yes (15) Thrombocytopenia SNOMED Code(s): 831707422 Code(s): D69.6 - THROMBOCYTOPENIA, UNSPECIFIED Status: Chronic Priority: High Current Visit: Yes (16) Depression SNOMED Code(s): 93656617 Code(s): F32.9 - MAJOR DEPRESSIVE DISORDER, SINGLE EPISODE, UNSPECIFIED Status: Chronic Priority: Medium Current Visit: Yes Qualifiers: Depression Type: other depression Qualified Code(s): F32.89 - Other specified depressive episodes (17) Hepatic encephalopathy SNOMED Code(s): 56995907 Code(s): K72.90 - HEPATIC FAILURE, UNSPECIFIED WITHOUT COMA Status: Chronic Priority: High Current Visit: Yes (18) Lactic acidosis SNOMED Code(s): 31767668 Code(s): E87.2 - ACIDOSIS Status: Acute Priority: High Current Visit: Yes (19) Hypoxia SNOMED Code(s): 667934688 Code(s): R09.02 - HYPOXEMIA Status: Acute Priority: High Current Visit: Yes (20) Elevated d-dimer SNOMED Code(s): 300989253 Code(s): R79.89 - OTHER SPECIFIED ABNORMAL FINDINGS OF BLOOD CHEMISTRY Status: Acute Priority: High Current Visit: Yes (21) Respiratory failure SNOMED Code(s): 995818720 Code(s): J96.90 - RESPIRATORY FAILURE, UNSP, UNSP W HYPOXIA OR HYPERCAPNIA Status: Resolved Priority: High Current Visit: Yes Qualifiers: Chronicity: acute Respiratory failure complication: hypoxia Qualified Code(s): J96.01 - Acute respiratory failure with hypoxia (22) Suspected COVID-19 virus infection SNOMED Code(s): 991867201 Code(s): Z20.828 - CONTACT W AND EXPOSURE TO OTH VIRAL COMMUNICABLE DISEASES Status: Ruled-out Priority: High Current Visit: Yes (23) S/P thoracentesis SNOMED Code(s): 944110698, 00136755, 633107509 Code(s): Z98.890 - OTHER SPECIFIED POSTPROCEDURAL STATES Status: Acute Priority: Low Current Visit: Yes (24) Status post incision and drainage SNOMED Code(s): 402733380, 891064926 Code(s): Z98.890 - OTHER SPECIFIED POSTPROCEDURAL STATES Status: Acute Priority: Medium Current Visit: Yes (25) Hallucination, visual SNOMED Code(s): 08779933 Code(s): R44.1 - VISUAL HALLUCINATIONS Status: Acute Priority: High Current Visit: Yes - Problem List Review Problem List Initiated/Reviewed/Updated: Yes - Assessment Assessment:: 07/13/2020 - Day of Admission -64 yo Male who presents to ED on 07/12/20 with confusion and bilateral cellulitis -History of hepatic encephalopathy, End stage liver disease, ETOH abuse, Tobacco use, Esophageal varices with banding, depression, dependant edema -Patient admits to ED provider that he has not been taking his medications because he forgets -Denies any ETOH use for past 2 months (ETOH in ED was 0.00) -Kept in ED overnight due to bed shortage statewide and us being on diversion -Started on Vancomycin in ED foe cellulitis -Given lactulose, spironolactone, lasix, IV fluids, Xanax, vancomycin in ED -No WBC in ED, although likely cannot mount immunologic defense due to alcoholic bone marrow suppression -Sepsis criteria: -Bilateral cellulitis, No tachycardia, tachypnea, WBC, or fever -Hypotension likely 2/2 end stage liver failure, Lactate >2 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 Patient is being evicted. 07/14/2020 * Small improvement in cellulitis * Procalcitonin was negative at 0.05 * White count 6.1 and CRP 2.1 * Lactic acid is chronically elevated due to liver disease at 2.6. Total bilirubin elevated at 7.8 and direct bilirubin 3.8 * Oxygen requirement has increased to 4 L/min * Sodium chronically low at 131 07/15/2020 * Continued improvement in cellulitis * WBC remains WNL at 7.19 with CRP of 2.2 * Oxygen requirement has decreased to 2L * Blood cultures negative thus far * Sodium improved to 133 * Potassium 4.3 * Dr. Powell saw patient and recommends withholding patients effexor and monitoring * Patient remains quite confused 07/16/20 * Continue current treatment * Routine AM labs with Ammonia * Midodrine 5 mg po TIDAC * Remains confused with hallucinations (seeing squirrels inside his room) * May consider anti-psychotic medications if needed * Need Tele-psych consult 07/17/20 * Continue current treatment: Rocephin and Vancomycin * Routine AM labs * Offered I&D but patient refused * Wound culture on right ramos * Remains confused with hallucinations (seeing squirrels inside his room) * May consider anti-psychotic medications if needed * Need Tele-psych follow up * LOS > 96 HRS due to need for placement 07/18/20 * WBC improved to 10.41 from 11.68 * CRP 9.1 from 5.7 * Creatinine 1.4 with GFR of 51 * Requiring 6L O2 via NC * Wound culture showing no growth * MELD-Na score on admission calculated to be 29 points - 27-32% estimated 90- day mortality * D-Dimer 7.29 * BNP 1009 * INR 2.33 * CTA shows pleural effusions and ground glass opacities concerning for viral/atypical pneumonia\ * Discussed plan with Dr. Castro - will start covid-19 treatment protocol 07/19/2020 * WBC 8.31 * CRP Up to 11.4 * Ferritin 513 * LDH 475 * Procalcitonin 0.43 * Creatinine 1.5, GFR 47 * INR 2.24 * On high flow oxygen * Thoracentesis performed today by Dr. Shipley with just over 1L clear straw colored output 07/20/2020 * Echo results show: * 1. LVEF, by visual estimation, is 65-70% * 2. Hyperdynamic left ventricular systolic function * 3. Verbally normal right ventricular systolic function and size, not well visualized. * 4. The aortic valve is not well visualized. * 5. Trace mitral valve regurgitation * 6. Trace tricuspid valve regurgitation. * 7. The right ventricular systolic pressure is unable to be determined. * 8. There is a pleural effusion * WBC 9.58 * CRP 10.2 * Sodium 130 and stable * Creatinine 1.5 and GFR 47 and stable * Awaiting thoracentesis culture * VRP negative * Covid-19 negative (4th time) * Discontinued COVID-19 treatment * Discontinue isolation precautions once off of high flow 07/21/2020 * WBC 10.17 * CRP 8.4 * Sodium 130 and stable * Creatinine 1.3 and GFR 55 * S/P I&D of right ramos with Dr. Cazares on 07/20/2020 * Purulent bloody drainage * No cultures sent due to patient being on abx for several days * O2 down to 4L * Thoracentesis cultures show no growth * Continue current treatment plan * Legs continue to improve 07/22/2020 * No labs done today * Patient is stable without any complaints * He has been weaned off of oxygen * Cultures continue to be negative 07/23/2020 * Patient is back really 1 on 1 to 2L nasal cannula given oral tolerated * Otherwise he is without complaints. 07/24/2020 * Currently on 1 L nasal cannula * White count 9.6 with moderate toxic granulation, hemoglobin * No complaints. 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 04/17 on MOCA 07/26/2020 * Remains off of oxygen * Worsening pedal edema - weight up 14lbs on admission * Increase lasix dosing * No labs obtained today due to patient stability * Discontinue abx - completed therapy * SW continuing to work toward discharge plan 08/07/20 * Remains sable and off of oxygen * Continue increased lasix dosing * Labs remain grossly stable * Will hold off checking labs tomorrow and consider re-check * Legs edematous but overall look good * SW continues to work on discharge plan 07/28/20 * Generalized edema still noted. Continue Lasix. * No labs drawn today. * Dressing intact to right lower extremity. * Complains of pain to left great toe and fifth digit. Left great toe is reddened but there are no open areas and no drainage noted. Patient reports that he stubbed that toe, however I cannot assess the certainty of this due to the patient's cognition and lack of orientation. 07/29/2020 * Sodium down to 126 today * Fluid restriction started * Continued dressing on right lower extremity * Creatinine 1.4 and GFR 51 (stable) * Re-check BMP tomorrow * Given continued left great toe pain will check uric acid tomorrow * Remains confused * SW working on guardianship/placement. - Plan Plan:: Bilateral cellulitis/Stasis Dermatitis, improving Dependant edema Small hematoma/abscess on right ramos Leukocytosis Hypoxemia S/P Right ramos I&D -Completed doxycycline -Completed Keflex -Monitor leg inflammation -Increase oral Lasix to 40 mg BID Diuretic with spironolactone 100 mg daily Failure to thrive Hypokalemia, resolved Hyponatremia Lactic Acidosis, likely resolved Medical non-compliance Hx/o hypomagnesemia Hypoalbuminemia, unchanged Relative Hypotension -Consult CM/SW -visitor services assistant working on placement as patient is not safe to be discharged home alone. -Senior Support Analyst consult -Monitor electrolytes/magnesium and supplement as needed -On Midodrine 5 mg po TID -Fluid restriction -Repeat BMP tomorrow to monitor sodium -Asymptomatic -Consider sodium tablets - higher risk due to patients baseline hemodynamic instability History of ETOH abuse Hepatic encephalopathy End-stage ETOH related cirrhosis Elevated INR Elevated Bilirubin Hx/o esophageal varices Thrombocytopenia Macrocytic Normochromic Anemia Elevated serum ammonia Hyperlactatemia -Continue Lactulose 30mg TID and Lasix 40 mg daily -Continue spironolactone 100mg daily -Pharmacological DVT prophylaxis contraindicated -Continue folic acid, MV, thiamine supplementation -Low protein diet -Consult meat press operator -Due to end-stage cirrhosis we can expect BPs on the lower side -hyperlactatemia is likely 2/2 to end-stage liver disease and chronic ETOH abuse. -Procalcitonin was 0.05 ruling out sepsis. Depression Hallucinations -Dr. Powell consulted and started the patient on Haldol, patient tolerating this well. -Discontinue Effexor Tobacco use disorder -Cessation counseling at discharge -Nicotine patches Code status: DNR/DNI PCP: Dr. Mccollum DVT prophylaxis: Pharmacological prophylaxis contraindicated due to significant esophageal varices history, Elevated INR, thrombocytopenia. Mechanical prophylaxis contraindicated due to bilateral LE cellulitis, dependant LE edema. Disposition: Patient admitted due to cellulitis, electrolyte abnormalities, failure to thrive and need for placement. Social: Patient reportedly lives in an apartment. [facility] End Matcher is following patient. Patient has history of leaving water running and forgetting to turn of burner. Per ED note apartment is very unkempt and there are concerns for patient safety. SW/CM consulted. Prognosis: Overall poor prognosis due to end-stage ETOH cirrhosis. LOS >96 HRS due to need for placement <Cody Hermosillo - Last Filed: 07/29/20 12:04> - Patient Data Vitals - Most Recent: Last Vital Signs Temp 36.8 C 07/29/20 09:20 Pulse 77 07/29/20 09:20 Resp 16 07/29/20 09:20 BP 97/50 L 07/29/20 09:20 Pulse Ox 95 07/29/20 10:26 I&O - Last 24 Hours: Intake & Output 07/28/20 07/29/20 07/29/20 22:59 06:59 14:59 Intake Total 600 1600 Output Total 500 Balance 100 1600 Lab Results Last 24 Hours: Laboratory Results - last 24 hr 07/29/20 Range/Units 04:23 Sodium 126 L (136-145) mEq/L Potassium 4.3 (3.5-5.1) mEq/L Chloride 95 L (98-107) mEq/L Carbon Dioxide 23 (21-32) mEq/L Anion Gap 12.3 (5-15) BUN 26 H (7-18) mg/dL Creatinine 1.4 H (0.7-1.3) mg/dL Est Cr Clr Drug Dosing 50.89 mL/min Estimated GFR (MDRD) 51 (>60) mL/min BUN/Creatinine Ratio 18.6 H (14-18) Glucose 98 (80-115) mg/dL Calcium 8.7 (8.5-10.1) mg/dL Med Orders - Current: Current Medications Acetaminophen (Tylenol) 650 mg PO Q4H PRN PRN Reason: Pain/Fever Last Admin: 07/27/20 14:13 Dose: 650 mg Documented by: Folic Acid (Folic Acid) 1 mg PO DAILY [facility] Last Admin: 07/29/20 09:22 Dose: 1 mg Documented by: Furosemide (Lasix) 40 mg PO BIDDIURETIC [facility] Last Admin: 07/29/20 06:04 Dose: 40 mg Documented by: Haloperidol (Haldol) 2 mg PO BEDTIME [facility] Last Admin: 07/28/20 21:59 Dose: 2 mg Documented by: Lactulose (Cephulac) 30 gm PO TID [facility] Last Admin: 07/29/20 09:22 Dose: 30 gm Documented by: Magnesium Oxide (Magnesium Oxide) 800 mg PO 1100 [facility] Last Admin: 07/28/20 12:30 Dose: 800 mg Documented by: Melatonin (Melatonin) 3 mg PO BEDTIME PRN PRN Reason: insomnia Last Admin: 07/25/20 22:03 Dose: 3 mg Documented by: Midodrine (Midodrine) 5 mg PO TIDAC [facility] Last Admin: 07/29/20 06:04 Dose: 5 mg Documented by: Miscellaneous Information (Remove Patch) 0 ea TRDERM Q24H [facility] Last Admin: 07/28/20 14:01 Dose: 1 ea Documented by: Multivitamins (Thera) 1 each PO DAILY [facility] Last Admin: 07/29/20 09:22 Dose: 1 each Documented by: Nicotine (Habitrol) 14 mg TRDERM Q24H [facility] Last Admin: 07/28/20 14:01 Dose: 14 mg Documented by: Ondansetron HCl (Zofran Odt) 4 mg PO Q4H PRN PRN Reason: Nausea/Vomiting Last Admin: 07/28/20 11:18 Dose: 4 mg Documented by: Oxycodone HCl (Oxycodone) 5 mg PO Q6H PRN PRN Reason: Pain (moderate 4-6) Last Admin: 07/27/20 23:42 Dose: 5 mg Documented by: Oxycodone HCl (Oxycodone) 10 mg PO Q6H PRN PRN Reason: Pain (severe 7-10) Last Admin: 07/27/20 06:47 Dose: 10 mg Documented by: Spironolactone (Aldactone) 100 mg PO DAILY [facility] Last Admin: 07/29/20 09:22 Dose: 100 mg Documented by: Thiamine HCl (Vitamin B-1) 100 mg PO DAILY [facility] Last Admin: 07/29/20 09:22 Dose: 100 mg Documented by: Discontinued Medications Alprazolam (Xanax) 1 mg PO BEDTIME ONE Stop: 07/12/20 21:01 Last Admin: 07/12/20 21:24 Dose: 1 mg Documented by: Alprazolam (Xanax) 1 mg PO BEDTIME [facility] Cephalexin (Keflex) 500 mg PO Q8H MELISSA Stop: 07/27/20 06:01 Last Admin: 07/27/20 06:47 Dose: 500 mg Documented by: Dexamethasone (Dexamethasone) 6 mg PO Q24H MELISSA Stop: 07/27/20 16:01 Last Admin: 07/19/20 15:51 Dose: 6 mg Documented by: Doxycycline Hyclate (Vibramycin) 100 mg PO BID [facility] Last Admin: 07/25/20 08:40 Dose: 100 mg Documented by: Folic Acid (Folic Acid) 1 mg PO DAILY [facility] Furosemide (Lasix) 40 mg IVPUSH NOW ONE Stop: 07/12/20 19:17 Last Admin: 07/12/20 19:38 Dose: 40 mg Documented by: Furosemide (Lasix) 40 mg IVPUSH NOW ONE Stop: 07/13/20 09:15 Last Admin: 07/13/20 09:42 Dose: 40 mg Documented by: Furosemide (Lasix) 40 mg IVPUSH DAILY [facility] Furosemide (Lasix) 20 mg IVPUSH DAILY [facility] Last Admin: 07/14/20 10:10 Dose: 20 mg Documented by: Furosemide (Lasix) 40 mg IVPUSH DAILY [facility] Last Admin: 07/24/20 08:33 Dose: 40 mg Documented by: Furosemide (Lasix) 40 mg PO DAILY [facility] Last Admin: 07/26/20 09:55 Dose: 40 mg Documented by: Furosemide (Lasix) 20 mg IVPUSH NOW ONE Stop: 07/26/20 11:46 Last Admin: 07/26/20 11:45 Dose: 20 mg Documented by: Sodium Chloride (Normal Saline) 1,000 mls @ 125 mls/hr IV ASDIRECTED [facility] Last Admin: 07/12/20 17:03 Dose: 125 mls/hr Documented by: Vancomycin HCl 1.5 gm/ Sodium (Chloride) 500 mls @ 250 mls/hr IV ONETIME ONE Stop: 07/12/20 19:21 Last Admin: 07/12/20 20:07 Dose: 250 mls/hr Documented by: Vancomycin HCl 1 gm/ Sodium (Chloride) 250 mls @ 250 mls/hr IV Q12H [facility] Last Admin: 07/14/20 23:00 Dose: 250 mls/hr Documented by: Ceftriaxone Sodium 2 gm/ (Sodium Chloride) 100 mls @ 200 mls/hr IV Q24H [facility] Last Admin: 07/14/20 14:38 Dose: 200 mls/hr Documented by: Sodium Chloride (Normal Saline) 1,000 mls @ 100 mls/hr IV ASDIRECTED [facility] Stop: 07/15/20 00:59 Last Admin: 07/14/20 00:04 Dose: 100 mls/hr Documented by: Vancomycin HCl 1 gm/ Sodium (Chloride) 250 mls @ 250 mls/hr IV Q24H [facility] Stop: 07/21/20 23:00 Last Admin: 07/21/20 20:20 Dose: 250 mls/hr Documented by: Ceftriaxone Sodium 2 gm/ (Sodium Chloride) 100 mls @ 200 mls/hr IV Q24H [facility] Stop: 07/21/20 17:00 Last Admin: 07/21/20 15:10 Dose: 200 mls/hr Documented by: Sodium Chloride (Normal Saline) 100 mls @ 75 mls/hr IV ASDIRECTED [facility] Stop: 07/18/20 17:00 Azithromycin 500 mg/ Sodium (Chloride) 250 mls @ 250 mls/hr IV Q24H [facility] Last Admin: 07/20/20 15:19 Dose: 250 mls/hr Documented by: Remdesivir 200 mg/ Sodium (Chloride) 250 mls @ 250 mls/hr IV ONETIME ONE Stop: 07/18/20 17:29 Last Admin: 07/18/20 17:55 Dose: 250 mls/hr Documented by: Remdesivir 100 mg/ Sodium (Chloride) 100 mls @ 100 mls/hr IV Q24H [facility] Stop: 07/22/20 17:29 Last Admin: 07/19/20 17:14 Dose: 100 mls/hr Documented by: Iopamidol (Isovue-370 (76%)) 100 ml IVPUSH ONETIME ONE Stop: 07/18/20 13:38 Last Admin: 07/18/20 16:43 Dose: Not Given Documented by: Lactulose (Cephulac) 20 gm PO TID [facility] Last Admin: 07/13/20 15:46 Dose: Not Given Documented by: Lactulose (Cephulac) 20 gm PO TID [facility] Last Admin: 07/15/20 10:21 Dose: 20 gm Documented by: Lidocaine/Epinephrine (Xylocaine 1% With Epinephrine 1:100,000) 20 ml INJECT ONETIME ONE Stop: 07/20/20 13:31 Last Admin: 07/20/20 14:59 Dose: Not Given Documented by: Magnesium Oxide (Magnesium Oxide) 400 mg PO BID [facility] Stop: 07/21/20 23:00 Last Admin: 07/21/20 20:19 Dose: 400 mg Documented by: Non-Formulary Medication (Magnesium Oxide [Magnesium Oxide]) 400 mg PO DAILY [facility] Ondansetron HCl (Zofran) 4 mg IV Q6H PRN PRN Reason: Nausea/Vomiting Ondansetron HCl (Zofran) Confirm Administered Dose 4 mg .ROUTE .STK-MED ONE Stop: 07/28/20 11:03 Last Admin: 07/28/20 12:36 Dose: Not Given Documented by: Oxycodone HCl (Oxycodone) 5 - 10 mg PO Q6H PRN PRN Reason: Pain Potassium Chloride (Klor-Con M20) 40 meq PO TID [facility] Stop: 07/14/20 09:01 Last Admin: 07/14/20 10:09 Dose: 40 meq Documented by: Sodium Chloride (Saline Flush) 10 ml FLUSH ONETIME PRN PRN Reason: IV FLUSH Stop: 07/18/20 17:00 Spironolactone (Aldactone) 25 mg PO ONETIME ONE Stop: 07/12/20 19:18 Last Admin: 07/12/20 19:38 Dose: 25 mg Documented by: Spironolactone (Aldactone) 25 mg PO ONETIME ONE Stop: 07/13/20 09:16 Last Admin: 07/13/20 09:50 Dose: 25 mg Documented by: Spironolactone (Aldactone) 25 mg PO DAILY [facility] Spironolactone (Aldactone) 50 mg PO DAILY [facility] Last Admin: 07/15/20 10:20 Dose: 50 mg Documented by: Thiamine HCl (Vitamin B-1) 100 mg PO DAILY [facility] Vancomycin HCl (Pharmacy To Dose - Vancomycin) 1 dose .XX ASDIRECTED [facility] Stop: 07/21/20 23:00 Vancomycin HCl (Vancocin) Confirm Administered Dose 1 gm .ROUTE .STK-MED ONE Stop: 07/17/20 21:34 Last Admin: 07/17/20 23:07 Dose: Not Given Documented by: Venlafaxine HCl (Effexor) 37.5 mg PO BID [facility] Sepsis Event Note - Focused Exam Vital Signs: Vital Signs Temp Pulse Resp BP Pulse Ox 07/29/20 10:26 95 07/29/20 09:20 36.8 C 77 16 97/50 L 94 L 07/29/20 01:18 36.4 C 78 18 110/58 L 93 L - Problem List & Annotations (1) Liver disease due to alcohol SNOMED Code(s): 20466571 Code(s): K70.9 - ALCOHOLIC LIVER DISEASE, UNSPECIFIED Status: Acute Priority: Medium Current Visit: Yes Onset Date: ~07/29/20 (2) Abscess of right leg SNOMED Code(s): 428760591 Code(s): L02.415 - CUTANEOUS ABSCESS OF RIGHT LOWER LIMB Status: Acute Priority: Medium Current Visit: Yes Onset Date: ~07/19/20 (3) Bilateral lower leg cellulitis SNOMED Code(s): 750952829 Code(s): L03.116 - CELLULITIS OF LEFT LOWER LIMB; L03.115 - CELLULITIS OF RIGHT LOWER LIMB Status: Acute Priority: Low Current Visit: Yes Onset Date: ~07/19/20 (4) Difficulty walking SNOMED Code(s): 214968750 Code(s): R26.2 - DIFFICULTY IN WALKING, NOT ELSEWHERE CLASSIFIED Status: Acute Priority: Low Current Visit: Yes Onset Date: ~07/19/20 (5) Failure to thrive SNOMED Code(s): 06962127 Code(s): BHO1416 - Status: Acute Priority: Medium Current Visit: Yes Onset Date: ~07/19/20 Qualifiers: Failure to thrive age range: in adult Qualified Code(s): R62.7 - Adult failure to thrive (6) Hallucination, visual SNOMED Code(s): 28104519 Code(s): R44.1 - VISUAL HALLUCINATIONS Status: Acute Priority: Low Current Visit: Yes Onset Date: ~07/19/20 (7) Hyponatremia SNOMED Code(s): 79578581 Code(s): E87.1 - HYPO-OSMOLALITY AND HYPONATREMIA Status: Acute Priority: Medium Current Visit: Yes Onset Date: ~07/19/20 - Problem List Review Problem List Initiated/Reviewed/Updated: Yes
[2020-07-29] MEDS: Thiamine 100 MG Tab PO SCH (09:22)
[2020-07-29] MEDS: Lactulose Soln 10 GM/15 ML 30 ML UD Cup PO SCH ×3 (09:22→20:29)
[2020-07-29] MEDS: Folic Acid 1 MG Tab PO SCH (09:22)
[2020-07-29] MEDS: Multivitamins,Therapeutic Tab PO SCH (09:22)
[2020-07-29] MEDS: Spironolactone 100 MG Tab PO SCH (09:22)
[2020-07-29] MEDS: Magnesium Oxide 400 MG Tab PO SCH (12:16)
[2020-07-29] MEDS: Nicotine 14 MG/24 Hr Patch TRDERM SCH (15:03)
[2020-07-29] MEDS: Haloperidol 1 MG Tab PO SCH (20:30)
[2020-07-29] MEDS: Ondansetron 4 MG Tab.DIS PO PRN (22:22)
[2020-07-29] MEDS: oxyCODONE 5 MG Tab PO PRN (22:22)
[2020-07-30] MEDS: Midodrine 5 MG Tab PO SCH ×3 (06:28→17:41)
[2020-07-30] MEDS: Furosemide 40 MG Tab PO SCH (06:28)
--- NOTE | 2020-07-30 08:23 | PCM.PN ---
- General Info Date of Service: 07/30/20 Admission Dx/Problem (Free Text): Admission Diagnosis/Problem Admission Diagnosis/Problem Cellulitis Subjective Update: In to see Mandeep. He remains confused. He is complaining of diarrhea and after discussion with Dr. Gomez we will decrease his lactulose dosing form 30mg TID to 15mg TID. We also discussed his hyponatremia and edema. We will start him on a low dose ARB and decrease his lasix a bit. This is complicated given his chronic hypotension and we will monitor this closely. Mandeep has also been complaining of right little toe pain. Uric acid was obtained and was elevated at 7.9 Functional Status: Reports: Pain Controlled, Tolerating Diet, Ambulating, Urinating, Incentive Spirometry. Denies: New Symptoms - Review of Systems General: Reports: No Symptoms. Denies: Fever, Weakness, Fatigue, Malaise, Chills HEENT: Reports: No Symptoms. Denies: Headaches, Sore Throat Pulmonary: Reports: No Symptoms. Denies: Shortness of Breath, Cough, Sputum, Wheezing Cardiovascular: Reports: Edema. Denies: Chest Pain, Palpitations, Dyspnea on Exertion Gastrointestinal: Reports: No Symptoms. Denies: Abdominal Pain, Constipation, Diarrhea, Nausea, Vomiting Genitourinary: Reports: No Symptoms. Denies: Pain Musculoskeletal: Reports: Foot Pain Skin: Reports: No Symptoms. Denies: Cyanosis Neurological: Reports: Confusion, Pre-Existing Deficit Psychiatric: Reports: No Symptoms - Patient Data Vitals - Most Recent: Last Vital Signs Temp 97.3 F 07/30/20 07:16 Pulse 80 07/30/20 07:16 Resp 20 07/30/20 07:16 BP 100/57 L 07/30/20 07:16 Pulse Ox 97 07/30/20 07:16 Weight - Most Recent: 193 lb 3.2 oz I&O - Last 24 Hours: Intake & Output 07/29/20 07/30/20 07/30/20 22:59 06:59 14:59 Intake Total 400 400 Output Total 200 Balance 400 200 Lab Results Last 24 Hours: Laboratory Results - last 24 hr 07/30/20 Range/Units 06:09 Sodium 126 L (136-145) mEq/L Potassium 4.1 (3.5-5.1) mEq/L Chloride 96 L (98-107) mEq/L Carbon Dioxide 23 (21-32) mEq/L Anion Gap 11.1 (5-15) BUN 26 H (7-18) mg/dL Creatinine 1.3 (0.7-1.3) mg/dL Est Cr Clr Drug Dosing 54.81 mL/min Estimated GFR (MDRD) 55 (>60) mL/min BUN/Creatinine Ratio 20.0 H (14-18) Glucose 102 (80-115) mg/dL Uric Acid 7.4 H (3.5-7.2) mg/dL Calcium 8.2 L (8.5-10.1) mg/dL Magnesium 2.1 (1.8-2.4) mg/dl Total Bilirubin 8.4 H (0.2-1.0) mg/dL AST 62 H (15-37) U/L ALT 80 H (16-63) U/L Alkaline Phosphatase 84 (46-116) U/L Total Protein 6.1 L (6.4-8.2) g/dl Albumin 1.9 L (3.4-5.0) g/dl Globulin 4.2 gm/dL Albumin/Globulin Ratio 0.5 L (1-2) Med Orders - Current: Current Medications Acetaminophen (Tylenol) 650 mg PO Q4H PRN PRN Reason: Pain/Fever Last Admin: 07/27/20 14:13 Dose: 650 mg Documented by: Folic Acid (Folic Acid) 1 mg PO DAILY [facility] Last Admin: 07/29/20 09:22 Dose: 1 mg Documented by: Furosemide (Lasix) 40 mg PO BIDDIURETIC [facility] Last Admin: 07/30/20 06:28 Dose: 40 mg Documented by: Haloperidol (Haldol) 2 mg PO BEDTIME [facility] Last Admin: 07/29/20 20:30 Dose: 2 mg Documented by: Lactulose (Cephulac) 30 gm PO TID [facility] Last Admin: 07/29/20 20:29 Dose: 30 gm Documented by: Magnesium Oxide (Magnesium Oxide) 800 mg PO 1100 [facility] Last Admin: 07/29/20 12:16 Dose: 800 mg Documented by: Melatonin (Melatonin) 3 mg PO BEDTIME PRN PRN Reason: insomnia Last Admin: 07/25/20 22:03 Dose: 3 mg Documented by: Midodrine (Midodrine) 5 mg PO TIDAC [facility] Last Admin: 07/30/20 06:28 Dose: 5 mg Documented by: Miscellaneous Information (Remove Patch) 0 ea TRDERM Q24H [facility] Last Admin: 07/29/20 15:06 Dose: 14 ea Documented by: Multivitamins (Thera) 1 each PO DAILY [facility] Last Admin: 07/29/20 09:22 Dose: 1 each Documented by: Nicotine (Habitrol) 14 mg TRDERM Q24H [facility] Last Admin: 07/29/20 15:03 Dose: 14 mg Documented by: Ondansetron HCl (Zofran Odt) 4 mg PO Q4H PRN PRN Reason: Nausea/Vomiting Last Admin: 07/29/20 22:22 Dose: 4 mg Documented by: Oxycodone HCl (Oxycodone) 5 mg PO Q6H PRN PRN Reason: Pain (moderate 4-6) Last Admin: 07/29/20 22:22 Dose: 5 mg Documented by: Oxycodone HCl (Oxycodone) 10 mg PO Q6H PRN PRN Reason: Pain (severe 7-10) Last Admin: 07/27/20 06:47 Dose: 10 mg Documented by: Spironolactone (Aldactone) 100 mg PO DAILY [facility] Last Admin: 07/29/20 09:22 Dose: 100 mg Documented by: Thiamine HCl (Vitamin B-1) 100 mg PO DAILY [facility] Last Admin: 07/29/20 09:22 Dose: 100 mg Documented by: Discontinued Medications Alprazolam (Xanax) 1 mg PO BEDTIME ONE Stop: 07/12/20 21:01 Last Admin: 07/12/20 21:24 Dose: 1 mg Documented by: Alprazolam (Xanax) 1 mg PO BEDTIME [facility] Cephalexin (Keflex) 500 mg PO Q8H [facility] Stop: 07/27/20 06:01 Last Admin: 07/27/20 06:47 Dose: 500 mg Documented by: Dexamethasone (Dexamethasone) 6 mg PO Q24H [facility] Stop: 07/27/20 16:01 Last Admin: 07/19/20 15:51 Dose: 6 mg Documented by: Doxycycline Hyclate (Vibramycin) 100 mg PO BID [facility] Last Admin: 07/25/20 08:40 Dose: 100 mg Documented by: Folic Acid (Folic Acid) 1 mg PO DAILY [facility] Furosemide (Lasix) 40 mg IVPUSH NOW ONE Stop: 07/12/20 19:17 Last Admin: 07/12/20 19:38 Dose: 40 mg Documented by: Furosemide (Lasix) 40 mg IVPUSH NOW ONE Stop: 07/13/20 09:15 Last Admin: 07/13/20 09:42 Dose: 40 mg Documented by: Furosemide (Lasix) 40 mg IVPUSH DAILY [facility] Furosemide (Lasix) 20 mg IVPUSH DAILY [facility] Last Admin: 07/14/20 10:10 Dose: 20 mg Documented by: Furosemide (Lasix) 40 mg IVPUSH DAILY [facility] Last Admin: 07/24/20 08:33 Dose: 40 mg Documented by: Furosemide (Lasix) 40 mg PO DAILY [facility] Last Admin: 07/26/20 09:55 Dose: 40 mg Documented by: Furosemide (Lasix) 20 mg IVPUSH NOW ONE Stop: 07/26/20 11:46 Last Admin: 07/26/20 11:45 Dose: 20 mg Documented by: Sodium Chloride (Normal Saline) 1,000 mls @ 125 mls/hr IV ASDIRECTED [facility] Last Admin: 07/12/20 17:03 Dose: 125 mls/hr Documented by: Vancomycin HCl 1.5 gm/ Sodium (Chloride) 500 mls @ 250 mls/hr IV ONETIME ONE Stop: 07/12/20 19:21 Last Admin: 07/12/20 20:07 Dose: 250 mls/hr Documented by: Vancomycin HCl 1 gm/ Sodium (Chloride) 250 mls @ 250 mls/hr IV Q12H [facility] Last Admin: 07/14/20 23:00 Dose: 250 mls/hr Documented by: Ceftriaxone Sodium 2 gm/ (Sodium Chloride) 100 mls @ 200 mls/hr IV Q24H [facility] Last Admin: 07/14/20 14:38 Dose: 200 mls/hr Documented by: Sodium Chloride (Normal Saline) 1,000 mls @ 100 mls/hr IV ASDIRECTED [facility] Stop: 07/15/20 00:59 Last Admin: 07/14/20 00:04 Dose: 100 mls/hr Documented by: Vancomycin HCl 1 gm/ Sodium (Chloride) 250 mls @ 250 mls/hr IV Q24H [facility] Stop: 07/21/20 23:00 Last Admin: 07/21/20 20:20 Dose: 250 mls/hr Documented by: Ceftriaxone Sodium 2 gm/ (Sodium Chloride) 100 mls @ 200 mls/hr IV Q24H [facility] Stop: 07/21/20 17:00 Last Admin: 07/21/20 15:10 Dose: 200 mls/hr Documented by: Sodium Chloride (Normal Saline) 100 mls @ 75 mls/hr IV ASDIRECTED [facility] Stop: 07/18/20 17:00 Azithromycin 500 mg/ Sodium (Chloride) 250 mls @ 250 mls/hr IV Q24H [facility] Last Admin: 07/20/20 15:19 Dose: 250 mls/hr Documented by: Remdesivir 200 mg/ Sodium (Chloride) 250 mls @ 250 mls/hr IV ONETIME ONE Stop: 07/18/20 17:29 Last Admin: 07/18/20 17:55 Dose: 250 mls/hr Documented by: Remdesivir 100 mg/ Sodium (Chloride) 100 mls @ 100 mls/hr IV Q24H [facility] Stop: 07/22/20 17:29 Last Admin: 07/19/20 17:14 Dose: 100 mls/hr Documented by: Iopamidol (Isovue-370 (76%)) 100 ml IVPUSH ONETIME ONE Stop: 07/18/20 13:38 Last Admin: 07/18/20 16:43 Dose: Not Given Documented by: Lactulose (Cephulac) 20 gm PO TID [facility] Last Admin: 07/13/20 15:46 Dose: Not Given Documented by: Lactulose (Cephulac) 20 gm PO TID [facility] Last Admin: 07/15/20 10:21 Dose: 20 gm Documented by: Lidocaine/Epinephrine (Xylocaine 1% With Epinephrine 1:100,000) 20 ml INJECT ONETIME ONE Stop: 07/20/20 13:31 Last Admin: 07/20/20 14:59 Dose: Not Given Documented by: Magnesium Oxide (Magnesium Oxide) 400 mg PO BID [facility] Stop: 07/21/20 23:00 Last Admin: 07/21/20 20:19 Dose: 400 mg Documented by: Non-Formulary Medication (Magnesium Oxide [Magnesium Oxide]) 400 mg PO DAILY [facility] Ondansetron HCl (Zofran) 4 mg IV Q6H PRN PRN Reason: Nausea/Vomiting Ondansetron HCl (Zofran) Confirm Administered Dose 4 mg .ROUTE .STK-MED ONE Stop: 07/28/20 11:03 Last Admin: 07/28/20 12:36 Dose: Not Given Documented by: Oxycodone HCl (Oxycodone) 5 - 10 mg PO Q6H PRN PRN Reason: Pain Potassium Chloride (Klor-Con M20) 40 meq PO TID [facility] Stop: 07/14/20 09:01 Last Admin: 07/14/20 10:09 Dose: 40 meq Documented by: Sodium Chloride (Saline Flush) 10 ml FLUSH ONETIME PRN PRN Reason: IV FLUSH Stop: 07/18/20 17:00 Spironolactone (Aldactone) 25 mg PO ONETIME ONE Stop: 07/12/20 19:18 Last Admin: 07/12/20 19:38 Dose: 25 mg Documented by: Spironolactone (Aldactone) 25 mg PO ONETIME ONE Stop: 07/13/20 09:16 Last Admin: 07/13/20 09:50 Dose: 25 mg Documented by: Spironolactone (Aldactone) 25 mg PO DAILY [facility] Spironolactone (Aldactone) 50 mg PO DAILY [facility] Last Admin: 07/15/20 10:20 Dose: 50 mg Documented by: Thiamine HCl (Vitamin B-1) 100 mg PO DAILY [facility] Vancomycin HCl (Pharmacy To Dose - Vancomycin) 1 dose .XX ASDIRECTED [facility] Stop: 07/21/20 23:00 Vancomycin HCl (Vancocin) Confirm Administered Dose 1 gm .ROUTE .STK-MED ONE Stop: 07/17/20 21:34 Last Admin: 07/17/20 23:07 Dose: Not Given Documented by: Venlafaxine HCl (Effexor) 37.5 mg PO BID [facility] - Exam Quality Assessment: DVT Prophylaxis General: Alert, Cooperative, No Acute Distress. No: Oriented HEENT: Pupils Equal, Pupils Reactive, Mucous Membr. Moist/[place] Neck: Supple, Trachea Midline Lungs: Clear to Auscultation, Normal Respiratory Effort Cardiovascular: Regular Rate, Regular Rhythm GI/Abdominal Exam: Normal Bowel Sounds, Soft, Non-Tender, No Distention (Male) Exam: Deferred Back Exam: Normal Inspection, Full Range of Motion Extremities: Normal Range of Motion, Non-Tender, Normal Capillary Refill, Pedal Edema, Leg Pain (right great toe) Skin: Warm, Dry, Intact Neurological: No New Focal Deficit Psy/Mental Status: Alert Sepsis Event Note - Evaluation Sepsis Screening Result: No Definite Risk - Focused Exam Vital Signs: Vital Signs Temp Pulse Resp BP BP Pulse Ox 07/30/20 07:16 97.3 F 80 20 100/57 L 97 07/30/20 03:39 98/62 07/30/20 03:19 97.3 F 84 16 94 L 07/30/20 00:54 97.5 F 73 16 92/47 L 95 07/29/20 20:30 97.3 F 74 20 102/65 94 L - Problem List & Annotations (1) Tobacco use disorder SNOMED Code(s): 291883626 Code(s): F17.200 - NICOTINE DEPENDENCE, UNSPECIFIED, UNCOMPLICATED Status: Chronic Priority: Medium Current Visit: No (2) History of alcohol abuse SNOMED Code(s): 838183844 Code(s): F10.11 - ALCOHOL ABUSE, IN REMISSION Status: Chronic Priority: Medium Current Visit: No (3) Esophageal varices without bleeding SNOMED Code(s): 00301079 Code(s): I85.00 - ESOPHAGEAL VARICES WITHOUT BLEEDING Status: Chronic Pr iority: Medium Current Visit: No Qualifiers: Esophageal varices type: unspecified type Qualified Code(s): I85.00 - Esophageal varices without bleeding (4) Failure to thrive SNOMED Code(s): 51180560 Code(s): RXV3616 - Status: Acute Priority: Medium Current Visit: Yes Onset Date: ~07/19/20 Qualifiers: Failure to thrive age range: in adult Qualified Code(s): R62.7 - Adult failure to thrive (5) Difficulty walking SNOMED Code(s): 545081943 Code(s): R26.2 - DIFFICULTY IN WALKING, NOT ELSEWHERE CLASSIFIED Status: Acute Priority: Low Current Visit: Yes Onset Date: ~07/19/20 (6) Medical non-compliance SNOMED Code(s): 587485516 Code(s): Z91.19 - PATIENT'S NONCOMPLIANCE W OTH MEDICAL TREATMENT AND REGIMEN Status: Chronic Priority: High Current Visit: Yes (7) Serum ammonia increased SNOMED Code(s): 9215152 Code(s): E72.20 - DISORDER OF UREA CYCLE METABOLISM, UNSPECIFIED Status: Chronic Priority: High Current Visit: Yes (8) Anemia SNOMED Code(s): 169654402 Code(s): D64.9 - ANEMIA, UNSPECIFIED Status: Chronic Priority: High Current Visit: Yes Qualifiers: Anemia type: bone marrow failure Bone marrow failure anemia type: unspecified bone marrow failure Qualified Code(s): D61.9 - Aplastic anemia, unspecified (9) Bilateral lower leg cellulitis SNOMED Code(s): 922455573 Code(s): L03.116 - CELLULITIS OF LEFT LOWER LIMB; L03.115 - CELLULITIS OF RIGHT LOWER LIMB Status: Acute Priority: Low Current Visit: Yes Onset Date: ~07/19/20 (10) Cirrhosis of liver SNOMED Code(s): 54187978 Code(s): K74.60 - UNSPECIFIED CIRRHOSIS OF LIVER Status: Chronic Priority: High Current Visit: Yes Qualifiers: Hepatic cirrhosis type: alcoholic cirrhosis Ascites presence: with ascites Qualified Code(s): K70.31 - Alcoholic cirrhosis of liver with ascites (11) Dependent edema SNOMED Code(s): 878631609 Code(s): R60.9 - EDEMA, UNSPECIFIED Status: Acute Priority: High Current Visit: Yes (12) Elevated INR SNOMED Code(s): 595452064 Code(s): R79.1 - ABNORMAL COAGULATION PROFILE Status: Chronic Priority: Medium Current Visit: Yes (13) Hypokalemia SNOMED Code(s): 21327430 Code(s): E87.6 - HYPOKALEMIA Status: Resolved Priority: High Current Visit: Yes (14) Hyponatremia SNOMED Code(s): 93084947 Code(s): E87.1 - HYPO-OSMOLALITY AND HYPONATREMIA Status: Acute Priority: Medium Current Visit: Yes Onset Date: ~07/19/20 (15) Thrombocytopenia SNOMED Code(s): 163579600 Code(s): D69.6 - THROMBOCYTOPENIA, UNSPECIFIED Status: Chronic Priority: High Current Visit: Yes (16) Depression SNOMED Code(s): 07078237 Code(s): F32.9 - MAJOR DEPRESSIVE DISORDER, SINGLE EPISODE, UNSPECIFIED Status: Chronic Priority: Medium Current Visit: Yes Qualifiers: Depression Type: other depression Qualified Code(s): F32.89 - Other specified depressive episodes (17) Hepatic encephalopathy SNOMED Code(s): 74975102 Code(s): K72.90 - HEPATIC FAILURE, UNSPECIFIED WITHOUT COMA Status: Chronic Priority: High Current Visit: Yes (18) Lactic acidosis SNOMED Code(s): 01179729 Code(s): E87.2 - ACIDOSIS Status: Acute Priority: High Current Visit: Yes (19) Hypoxia SNOMED Code(s): 674543820 Code(s): R09.02 - HYPOXEMIA Status: Acute Priority: High Current Visit: Yes (20) Elevated d-dimer SNOMED Code(s): 464215553 Code(s): R79.89 - OTHER SPECIFIED ABNORMAL FINDINGS OF BLOOD CHEMISTRY Status: Acute Priority: High Current Visit: Yes (21) Respiratory failure SNOMED Code(s): 430391720 Code(s): J96.90 - RESPIRATORY FAILURE, UNSP, UNSP W HYPOXIA OR HYPERCAPNIA Status: Resolved Priority: High Current Visit: Yes Qualifiers: Chronicity: acute Respiratory failure complication: hypoxia Qualified Code(s): J96.01 - Acute respiratory failure with hypoxia (22) Suspected COVID-19 virus infection SNOMED Code(s): 003645205 Code(s): Z20.828 - CONTACT W AND EXPOSURE TO OTH VIRAL COMMUNICABLE DISEASES Status: Ruled-out Priority: High Current Visit: Yes (23) S/P thoracentesis SNOMED Code(s): 450918819, 63860336, 983398480 Code(s): Z98.890 - OTHER SPECIFIED POSTPROCEDURAL STATES Status: Acute Priority: Low Current Visit: Yes (24) Status post incision and drainage SNOMED Code(s): 105661785, 503198972 Code(s): Z98.890 - OTHER SPECIFIED POSTPROCEDURAL STATES Status: Acute Priority: Medium Current Visit: Yes (25) Hallucination, visual SNOMED Code(s): 93327871 Code(s): R44.1 - VISUAL HALLUCINATIONS Status: Acute Priority: Low Current Visit: Yes Onset Date: ~07/19/20 (26) Gout SNOMED Code(s): 50039368 Code(s): M10.9 - GOUT, UNSPECIFIED Status: Acute Priority: High Current Visit: Yes Qualifiers: Gout site: toe Gout etiology: unspecified cause Chronicity: acute Laterality: right Qualified Code(s): M10.9 - Gout, unspecified - Problem List Review Problem List Initiated/Reviewed/Updated: Yes - My Orders Last 24 Hours: My Active Orders 07/29/20 Lunch Fluid Restriction [DIET] - Assessment Assessment:: 07/13/2020 - Day of Admission -64 yo Male who presents to ED on 07/12/20 with confusion and bilateral ce llulitis -History of hepatic encephalopathy, End stage liver disease, ETOH abuse, Tobacco use, Esophageal varices with banding, depression, dependant edema -Patient admits to ED provider that he has not been taking his medications because he forgets -Denies any ETOH use for past 2 months (ETOH in ED was 0.00) -Kept in ED overnight due to bed shortage statewide and us being on diversion -Started on Vancomycin in ED foe cellulitis -Given lactulose, spironolactone, lasix, IV fluids, Xanax, vancomycin in ED -No WBC in ED, although likely cannot mount immunologic defense due to alcoholic bone marrow suppression -Sepsis criteria: -Bilateral cellulitis, No tachycardia, tachypnea, WBC, or fever -Hypotension likely 2/2 end stage liver failure, Lactate >2 likely 2/2 chronic ETOH abuse, Bilirubin >2 chronically, Platelets <100 chronically, INR elevated 2/2 End stage liver disease -Does not meet criteria -Per ED provider social work states patient apartment was very unkempt -Social work reports patient has been known to leave water running and burners on in apartment. Patient is being evicted. 07/14/2020 * Small improvement in cellulitis * Procalcitonin was negative at 0.05 * White count 6.1 and CRP 2.1 * Lactic acid is chronically elevated due to liver disease at 2.6. Total bilirubin elevated at 7.8 and direct bilirubin 3.8 * Oxygen requirement has increased to 4 L/min * Sodium chronically low at 131 07/15/2020 * Continued improvement in cellulitis * WBC remains WNL at 7.19 with CRP of 2.2 * Oxygen requirement has decreased to 2L * Blood cultures negative thus far * Sodium improved to 133 * Potassium 4.3 * Dr. Powell saw patient and recommends withholding patients effexor and monitoring * Patient remains quite confused 07/16/20 * Continue current treatment * Routine AM labs with Ammonia * Midodrine 5 mg po TIDAC * Remains confused with hallucinations (seeing squirrels inside his room) * May consider anti-psychotic medications if needed * Need Tele-psych consult 07/17/20 * Continue current treatment: Rocephin and Vancomycin * Routine AM labs * Offered I&D but patient refused * Wound culture on right ramos * Remains confused with hallucinations (seeing squirrels inside his room) * May consider anti-psychotic medications if needed * Need Tele-psych follow up * LOS > 96 HRS due to need for placement 07/18/20 * WBC improved to 10.41 from 11.68 * CRP 9.1 from 5.7 * Creatinine 1.4 with GFR of 51 * Requiring 6L O2 via NC * Wound culture showing no growth * MELD-Na score on admission calculated to be 29 points - 27-32% estimated 90- day mortality * D-Dimer 7.29 * BNP 1009 * INR 2.33 * CTA shows pleural effusions and ground glass opacities concerning for viral/atypical pneumonia\ * Discussed plan with Dr. Castro - will start covid-19 treatment protocol 07/19/2020 * WBC 8.31 * CRP Up to 11.4 * Ferritin 513 * LDH 475 * Procalcitonin 0.43 * Creatinine 1.5, GFR 47 * INR 2.24 * On high flow oxygen * Thoracentesis performed today by Dr. Shipley with just over 1L clear straw colored output 07/20/2020 * Echo results show: * 1. LVEF, by visual estimation, is 65-70% * 2. Hyperdynamic left ventricular systolic function * 3. Verbally normal right ventricular systolic function and size, not well visualized. * 4. The aortic valve is not well visualized. * 5. Trace mitral valve regurgitation * 6. Trace tricuspid valve regurgitation. * 7. The right ventricular systolic pressure is unable to be determined. * 8. There is a pleural effusion * WBC 9.58 * CRP 10.2 * Sodium 130 and stable * Creatinine 1.5 and GFR 47 and stable * Awaiting thoracentesis culture * VRP negative * Covid-19 negative (4th time) * Discontinued COVID-19 treatment * Discontinue isolation precautions once off of high flow 07/21/2020 * WBC 10.17 * CRP 8.4 * Sodium 130 and stable * Creatinine 1.3 and GFR 55 * S/P I&D of right ramos with Dr. Cazares on 07/20/2020 * Purulent bloody drainage * No cultures sent due to patient being on abx for several days * O2 down to 4L * Thoracentesis cultures show no growth * Continue current treatment plan * Legs continue to improve 07/22/2020 * No labs done today * Patient is stable without any complaints * He has been weaned off of oxygen * Cultures continue to be negative 07/23/2020 * Patient is back really 1 on 1 to 2L nasal cannula given oral tolerated * Otherwise he is without complaints. 07/24/2020 * Currently on 1 L nasal cannula * White count 9.6 with moderate toxic granulation, hemoglobin * No complaints. * Currently on Keflex and doxycycline 07/25/2020 * Off of oxygen today * No new complaints - still reports foot and back pain * On Keflex - doxycycline was discontinued * Serosanguineous drainage from left hip * Sodium 129 and stable * Pending placement * MARKETING DIRECTOR [employer]IVING evaluation on Saturday noted significant cognitive deficit. 04/17 on MOCA 07/26/2020 * Remains off of oxygen * Worsening pedal edema - weight up 14lbs on admission * Increase lasix dosing * No labs obtained today due to patient stability * Discontinue abx - completed therapy * SW continuing to work toward discharge plan 08/07/20 * Remains sable and off of oxygen * Continue increased lasix dosing * Labs remain grossly stable * Will hold off checking labs tomorrow and consider re-check * Legs edematous but overall look good * SW continues to work on discharge plan 07/28/20 * Generalized edema still noted. Continue Lasix. * No labs drawn today. * Dressing intact to right lower extremity. * Complains of pain to left great toe and fifth digit. Left great toe is reddened but there are no open areas and no drainage noted. Patient reports that he stubbed that toe, however I cannot assess the certainty of this due to the patient's cognition and lack of orientation. 07/29/2020 * Sodium down to 126 today * Fluid restriction started * Continued dressing on right lower extremity * Creatinine 1.4 and GFR 51 (stable) * Re-check BMP tomorrow * Given continued left great toe pain will check uric acid tomorrow * Remains confused * SW working on guardianship/placement. - Plan Plan:: Bilateral cellulitis/Stasis Dermatitis, improving Dependant edema Small hematoma/abscess on right ramos Leukocytosis Hypoxemia S/P Right ramos I&D Gout -Completed doxycycline -Completed Keflex -Monitor leg inflammation -Decrease oral Lasix to 40 mg daily at 0600 and 20mg daily at 1400 with spironolactone 100 mg daily -Start Cozaar 12.5mg daily -Colchicine 1.2 mg now and then 0.6mg in 1 hour Failure to thrive Hypokalemia, resolved Hyponatremia Lactic Acidosis, likely resolved Medical non-compliance Hx/o hypomagnesemia Hypoalbuminemia, unchanged Relative Hypotension -Consult CM/SW -financial services technician working on placement as patient is not safe to be discharged home alone. -Croze Machine Operator consult -Monitor electrolytes/magnesium and supplement as needed -On Midodrine 5 mg po TID -Fluid restriction -Repeat BMP tomorrow to monitor sodium -Asymptomatic -Consider sodium tablets - higher risk due to patients baseline hemodynamic instability -Changing diuretics/ARB as above History of ETOH abuse Hepatic encephalopathy End-stage ETOH related cirrhosis Elevated INR Elevated Bilirubin Hx/o esophageal varices Thrombocytopenia Macrocytic Normochromic Anemia Elevated serum ammonia Hyperlactatemia -Decrease Lactulose to 15mg TID as patient is complaining of significant diarrhea -Continue Lasix as ordered -Continue spironolactone 100mg daily -Pharmacological DVT prophylaxis contraindicated -Continue folic acid, MV, thiamine supplementation -Low protein diet -Consult green chain offbearer -Due to end-stage cirrhosis we can expect BPs on the lower side -hyperlactatemia is likely 2/2 to end-stage liver disease and chronic ETOH abuse. -Procalcitonin was 0.05 ruling out sepsis. Depression Hallucinations -Dr. Powell consulted and started the patient on Haldol, patient tolerating this well. -Discontinue Effexor Tobacco use disorder -Cessation counseling at discharge -Nicotine patches Code status: DNR/DNI PCP: Dr. Mccollum DVT prophylaxis: Pharmacological prophylaxis contraindicated due to significant esophageal varices history, Elevated INR, thrombocytopenia. Mechanical prophylaxis contraindicated due to bilateral LE cellulitis, dependant LE edema. Disposition: Patient admitted due to cellulitis, electrolyte abnormalities, failure to thrive and need for placement. Social: Patient reportedly lives in an apartment. [facility] is following patient. Patient has history of leaving water running and forgetting to turn of burner. Per ED note apartment is very unkempt and there are concerns for patient safety. SW/CM consulted. Prognosis: Overall poor prognosis due to end-stage ETOH cirrhosis. LOS >96 HRS due to need for placement
[2020-07-30] MEDS: Spironolactone 100 MG Tab PO SCH (08:32)
[2020-07-30] MEDS: oxyCODONE 5 MG Tab PO PRN (08:32)
[2020-07-30] MEDS: Thiamine 100 MG Tab PO SCH (08:33)
[2020-07-30] MEDS: Lactulose Soln 10 GM/15 ML 30 ML UD Cup PO SCH ×3 (08:33→21:02)
[2020-07-30] MEDS: Multivitamins,Therapeutic Tab PO SCH (08:33)
[2020-07-30] MEDS: Folic Acid 1 MG Tab PO SCH (08:33)
[2020-07-30] MEDS ORDERED: Colchicine 0.6 MG Tab PO ONE ×2 (09:12→11:00)
[2020-07-30] MEDS ORDERED: Albumin 25% 12.5 GM/50 ML BAG IV ONE (09:35)
[2020-07-30] MEDS: Magnesium Oxide 400 MG Tab PO SCH (10:25)
[2020-07-30] MEDS: Losartan 25 MG Tab PO SCH (11:36)
[2020-07-30] MEDS: Nicotine 14 MG/24 Hr Patch TRDERM SCH (14:43)
[2020-07-30] MEDS: Haloperidol 1 MG Tab PO SCH (21:02)
[2020-07-31] MEDS: Furosemide 40 MG Tab PO SCH (06:17)
[2020-07-31] MEDS: Midodrine 5 MG Tab PO SCH ×4 (06:17→16:59)
[2020-07-31] MEDS: Losartan 25 MG Tab PO SCH ×2 (08:48→08:52)
[2020-07-31] MEDS: Multivitamins,Therapeutic Tab PO SCH (08:48)
[2020-07-31] MEDS: Thiamine 100 MG Tab PO SCH (08:48)
[2020-07-31] MEDS: Spironolactone 100 MG Tab PO SCH (08:49)
[2020-07-31] MEDS: Folic Acid 1 MG Tab PO SCH (08:49)
[2020-07-31] MEDS: Lactulose Soln 10 GM/15 ML 30 ML UD Cup PO SCH ×3 (08:49→20:01)
[2020-07-31] MEDS: Sodium Chloride/Potassium Chloride Tab PO SCH ×2 (08:59→20:02)
--- NOTE | 2020-07-31 09:47 | PCM.PN ---
- General Info Date of Service: 07/31/20 Admission Dx/Problem (Free Text): Admission Diagnosis/Problem Admission Diagnosis/Problem Cellulitis Subjective Update: In to see Mandeep. He remains somewhat confused but he does remember a discussion with our nurse manager e [employer] and some of the other conversations he has had. Will decrease his nicotine patch today as he has been on 14mg for quite sometime. Creatinine is up to 1.9. This is likely 2/2 starting colchicine and arb. BP was in 70's overnight per nursing. Will stop ARB. Patient reports his foot feels much better today. Continues to have hallucinations and states he has difficulty sleeping. Will increase haldol and schedule melatonin. Re-check labs in AM. Pending placement. Functional Status: Reports: Pain Controlled, Ambulating, Urinating. Denies: Tolerating Diet (minimal intake ), New Symptoms - Review of Systems General: Reports: Weakness, Fatigue, Malaise. Denies: Fever, Chills HEENT: Reports: No Symptoms. Denies: Headaches, Sore Throat Pulmonary: Reports: Shortness of Breath. Denies: Cough, Sputum, Wheezing Cardiovascular: Reports: Dyspnea on Exertion. Denies: Chest Pain, Palpitations Gastrointestinal: Reports: Abdominal Pain, Diarrhea (2/2 lactulose ). Denies: Constipation, Nausea, Vomiting Genitourinary: Reports: No Symptoms. Denies: Dysuria Musculoskeletal: Reports: No Symptoms. Denies: Leg Pain, Foot Pain Skin: Reports: No Symptoms, Jaundice. Denies: Cyanosis Neurological: Reports: Confusion, Weakness. Denies: Difficulty Walking, Gait Disturbance Psychiatric: Reports: No Symptoms - Patient Data Vitals - Most Recent: Last Vital Signs Temp 97.3 F 07/30/20 21:00 Pulse 67 07/31/20 06:19 Resp 16 07/31/20 06:18 BP 100/39 L 07/31/20 08:52 Pulse Ox 92 L 07/31/20 06:19 Weight - Most Recent: 194 lb 1.6 oz I&O - Last 24 Hours: Intake & Output 07/30/20 07/31/20 07/31/20 22:59 06:59 14:59 Intake Total 577 400 Output Total 300 Balance 277 400 Lab Results Last 24 Hours: Laboratory Results - last 24 hr 07/30/20 07/31/20 07/31/20 Range/Units 09:50 06:10 06:10 WBC 5.67 (4.23-9.07) K/mm3 RBC 2.56 L (4.63-6.08) M/mm3 Hgb 8.6 L (13.7-17.5) gm/dl Hct 26.0 L (40.1-51.0) % MCV 101.6 H (79.0-92.2) fl MCH 33.6 H (25.7-32.2) pg MCHC 33.1 (32.2-35.5) g/dl RDW Std Deviation 75.4 H (35.1-43.9) fL Plt Count 91 L (163-337) K/mm3 MPV 10.1 (9.4-12.3) fl Neut % (Auto) 58.3 (34.0-67.9) % Lymph % (Auto) 21.0 L (21.8-53.1) % [place] % (Auto) 17.3 H (5.3-12.2) % Eos % (Auto) 2.3 (0.8-7.0) Baso % (Auto) 0.4 (0.1-1.2) % Neut # (Auto) 3.31 (1.78-5.38) K/mm3 Lymph # (Auto) 1.19 L (1.32-3.57) K/mm3 [place] # (Auto) 0.98 H (0.30-0.82) K/mm3 Eos # (Auto) 0.13 (0.04-0.54) K/mm3 Baso # (Auto) 0.02 (0.01-0.08) K/mm3 Manual Slide Review Abnormal smear Sodium 127 L (136-145) mEq/L Potassium 3.9 (3.5-5.1) mEq/L Chloride 94 L (98-107) mEq/L Carbon Dioxide 21 (21-32) mEq/L Anion Gap 15.9 H (5-15) BUN 33 H (7-18) mg/dL Creatinine 1.9 H (0.7-1.3) mg/dL Est Cr Clr Drug Dosing 37.50 mL/min Estimated GFR (MDRD) 36 (>60) mL/min BUN/Creatinine Ratio 17.4 (14-18) Glucose 102 (80-115) mg/dL Serum Osmolality 283 274 L (280-300) mosm/kg Calcium 8.2 L (8.5-10.1) mg/dL Magnesium 2.3 (1.8-2.4) mg/dl Total Bilirubin 7.5 H (0.2-1.0) mg/dL AST 58 H (15-37) U/L ALT 72 H (16-63) U/L Alkaline Phosphatase 75 (46-116) U/L C-Reactive Protein 1.3 H* (<1.0) mg/dL Total Protein 5.7 L (6.4-8.2) g/dl Albumin 2.0 L (3.4-5.0) g/dl Globulin 3.7 gm/dL Albumin/Globulin Ratio 0.5 L (1-2) Med Orders - Current: Current Medications Acetaminophen (Tylenol) 650 mg PO Q4H PRN PRN Reason: Pain/Fever Last Admin: 07/27/20 14:13 Dose: 650 mg Documented by: Folic Acid (Folic Acid) 1 mg PO DAILY [facility] Last Admin: 07/31/20 08:49 Dose: 1 mg Documented by: Furosemide (Lasix) 40 mg PO DAILY@0600 [facility] Last Admin: 07/31/20 06:17 Dose: 40 mg Documented by: Furosemide (Lasix) 20 mg PO DAILY@1400 [facility] Haloperidol (Haldol) 2 mg PO BEDTIME [facility] Last Admin: 07/30/20 21:02 Dose: 2 mg Documented by: Lactulose (Cephulac) 15 gm PO TID [facility] Last Admin: 07/31/20 08:49 Dose: 15 gm Documented by: Magnesium Oxide (Magnesium Oxide) 800 mg PO 1100 [facility] Last Admin: 07/30/20 10:25 Dose: 800 mg Documented by: Melatonin (Melatonin) 3 mg PO BEDTIME PRN PRN Reason: insomnia Last Admin: 07/25/20 22:03 Dose: 3 mg Documented by: Midodrine (Midodrine) 5 mg PO TIDAC [facility] Last Admin: 07/31/20 06:17 Dose: 5 mg Documented by: Miscellaneous Information (Remove Patch) 0 ea TRDERM Q24H [facility] Last Admin: 07/30/20 14:46 Dose: 1 ea Documented by: Multivitamins (Thera) 1 each PO DAILY [facility] Last Admin: 07/31/20 08:48 Dose: 1 each Documented by: Nicotine (Habitrol) 14 mg TRDERM Q24H [facility] Last Admin: 07/30/20 14:43 Dose: 14 mg Documented by: Ondansetron HCl (Zofran Odt) 4 mg PO Q4H PRN PRN Reason: Nausea/Vomiting Last Admin: 07/29/20 22:22 Dose: 4 mg Documented by: Oral Electrolytes (Thermotabs) 2 each PO BID [facility] Last Admin: 07/31/20 08:59 Dose: 2 each Documented by: Oxycodone HCl (Oxycodone) 5 mg PO Q6H PRN PRN Reason: Pain (moderate 4-6) Last Admin: 07/29/20 22:22 Dose: 5 mg Documented by: Oxycodone HCl (Oxycodone) 10 mg PO Q6H PRN PRN Reason: Pain (severe 7-10) Last Admin: 07/30/20 08:32 Dose: 10 mg Documented by: Spironolactone (Aldactone) 100 mg PO DAILY [facility] Last Admin: 07/31/20 08:49 Dose: 100 mg Documented by: Thiamine HCl (Vitamin B-1) 100 mg PO DAILY [facility] Last Admin: 07/31/20 08:48 Dose: 100 mg Documented by: Discontinued Medications Alprazolam (Xanax) 1 mg PO BEDTIME ONE Stop: 07/12/20 21:01 Last Admin: 07/12/20 21:24 Dose: 1 mg Documented by: Alprazolam (Xanax) 1 mg PO BEDTIME [facility] Cephalexin (Keflex) 500 mg PO Q8H [facility] Stop: 07/27/20 06:01 Last Admin: 07/27/20 06:47 Dose: 500 mg Documented by: Colchicine (Colcrys) 1.2 mg PO ONETIME ONE Stop: 07/30/20 09:13 Last Admin: 07/30/20 10:24 Dose: 1.2 mg Documented by: Colchicine (Colcrys) 0.6 mg PO ONETIME ONE Stop: 07/30/20 11:01 Last Admin: 07/30/20 10:25 Dose: 0.6 mg Documented by: Dexamethasone (Dexamethasone) 6 mg PO Q24H [facility] Stop: 07/27/20 16:01 Last Admin: 07/19/20 15:51 Dose: 6 mg Documented by: Doxycycline Hyclate (Vibramycin) 100 mg PO BID [facility] Last Admin: 07/25/20 08:40 Dose: 100 mg Documented by: Folic Acid (Folic Acid) 1 mg PO DAILY [facility] Furosemide (Lasix) 40 mg IVPUSH NOW ONE Stop: 07/12/20 19:17 Last Admin: 07/12/20 19:38 Dose: 40 mg Documented by: Furosemide (Lasix) 40 mg IVPUSH NOW ONE Stop: 07/13/20 09:15 Last Admin: 07/13/20 09:42 Dose: 40 mg Documented by: Furosemide (Lasix) 40 mg IVPUSH DAILY [facility] Furosemide (Lasix) 20 mg IVPUSH DAILY [facility] Last Admin: 07/14/20 10:10 Dose: 20 mg Documented by: Furosemide (Lasix) 40 mg IVPUSH DAILY [facility] Last Admin: 07/24/20 08:33 Dose: 40 mg Documented by: Furosemide (Lasix) 40 mg PO DAILY [facility] Last Admin: 07/26/20 09:55 Dose: 40 mg Documented by: Furosemide (Lasix) 40 mg PO BIDDIURETIC [facility] Last Admin: 07/30/20 06:28 Dose: 40 mg Documented by: Furosemide (Lasix) 20 mg IVPUSH NOW ONE Stop: 07/26/20 11:46 Last Admin: 07/26/20 11:45 Dose: 20 mg Documented by: Sodium Chloride (Normal Saline) 1,000 mls @ 125 mls/hr IV ASDIRECTED [facility] Last Admin: 07/12/20 17:03 Dose: 125 mls/hr Documented by: Vancomycin HCl 1.5 gm/ Sodium (Chloride) 500 mls @ 250 mls/hr IV ONETIME ONE Stop: 07/12/20 19:21 Last Admin: 07/12/20 20:07 Dose: 250 mls/hr Documented by: Vancomycin HCl 1 gm/ Sodium (Chloride) 250 mls @ 250 mls/hr IV Q12H [facility] Last Admin: 07/14/20 23:00 Dose: 250 mls/hr Documented by: Ceftriaxone Sodium 2 gm/ (Sodium Chloride) 100 mls @ 200 mls/hr IV Q24H [facility] Last Admin: 07/14/20 14:38 Dose: 200 mls/hr Documented by: Sodium Chloride (Normal Saline) 1,000 mls @ 100 mls/hr IV ASDIRECTED [facility] Stop: 07/15/20 00:59 Last Admin: 07/14/20 00:04 Dose: 100 mls/hr Documented by: Vancomycin HCl 1 gm/ Sodium (Chloride) 250 mls @ 250 mls/hr IV Q24H [facility] Stop: 07/21/20 23:00 Last Admin: 07/21/20 20:20 Dose: 250 mls/hr Documented by: Ceftriaxone Sodium 2 gm/ (Sodium Chloride) 100 mls @ 200 mls/hr IV Q24H [facility] Stop: 07/21/20 17:00 Last Admin: 07/21/20 15:10 Dose: 200 mls/hr Documented by: Sodium Chloride (Normal Saline) 100 mls @ 75 mls/hr IV ASDIRECTED [facility] Stop: 07/18/20 17:00 Azithromycin 500 mg/ Sodium (Chloride) 250 mls @ 250 mls/hr IV Q24H [facility] Last Admin: 07/20/20 15:19 Dose: 250 mls/hr Documented by: Remdesivir 200 mg/ Sodium (Chloride) 250 mls @ 250 mls/hr IV ONETIME ONE Stop: 07/18/20 17:29 Last Admin: 07/18/20 17:55 Dose: 250 mls/hr Documented by: Remdesivir 100 mg/ Sodium (Chloride) 100 mls @ 100 mls/hr IV Q24H [facility] Stop: 07/22/20 17:29 Last Admin: 07/19/20 17:14 Dose: 100 mls/hr Documented by: Albumin Human (Flexbumin 25%) 12.5 gm in 50 mls @ 100 mls/hr IV ONETIME ONE Stop: 07/30/20 10:04 Last Admin: 07/30/20 10:25 Dose: 100 mls/hr Documented by: Iopamidol (Isovue-370 (76%)) 100 ml IVPUSH ONETIME ONE Stop: 07/18/20 13:38 Last Admin: 07/18/20 16:43 Dose: Not Given Documented by: Lactulose (Cephulac) 20 gm PO TID [facility]ELIS[facility] Last Admin: 07/13/20 15:46 Dose: Not Given Documented by: Lactulose (Cephulac) 20 gm PO TID [facility] Last Admin: 07/15/20 10:21 Dose: 20 gm Documented by: Lactulose (Cephulac) 30 gm PO TID [facility] Last Admin: 07/30/20 08:33 Dose: 30 gm Documented by: Lidocaine/Epinephrine (Xylocaine 1% With Epinephrine 1:100,000) 20 ml INJECT ONETIME ONE Stop: 07/20/20 13:31 Last Admin: 07/20/20 14:59 Dose: Not Given Documented by: Losartan Potassium (Cozaar) 12.5 mg PO DAILY [facility] Last Admin: 07/31/20 08:52 Dose: Not Given Documented by: Magnesium Oxide (Magnesium Oxide) 400 mg PO BID [facility] Stop: 07/21/20 23:00 Last Admin: 07/21/20 20:19 Dose: 400 mg Documented by: Non-Formulary Medication (Magnesium Oxide [Magnesium Oxide]) 400 mg PO DAILY [facility] Ondansetron HCl (Zofran) 4 mg IV Q6H PRN PRN Reason: Nausea/Vomiting Ondansetron HCl (Zofran) Confirm Administered Dose 4 mg .ROUTE .STK-MED ONE Stop: 07/28/20 11:03 Last Admin: 07/28/20 12:36 Dose: Not Given Documented by: Oxycodone HCl (Oxycodone) 5 - 10 mg PO Q6H PRN PRN Reason: Pain Potassium Chloride (Klor-Con M20) 40 meq PO TID [facility] Stop: 07/14/20 09:01 Last Admin: 07/14/20 10:09 Dose: 40 meq Documented by: Sodium Chloride (Saline Flush) 10 ml FLUSH ONETIME PRN PRN Reason: IV FLUSH Stop: 07/18/20 17:00 Spironolactone (Aldactone) 25 mg PO ONETIME ONE Stop: 07/12/20 19:18 Last Admin: 07/12/20 19:38 Dose: 25 mg Documented by: Spironolactone (Aldactone) 25 mg PO ONETIME ONE Stop: 07/13/20 09:16 Last Admin: 07/13/20 09:50 Dose: 25 mg Documented by: Spironolactone (Aldactone) 25 mg PO DAILY [facility] Spironolactone (Aldactone) 50 mg PO DAILY [facility] Last Admin: 07/15/20 10:20 Dose: 50 mg Documented by: Thiamine HCl (Vitamin B-1) 100 mg PO DAILY [facility] Vancomycin HCl (Pharmacy To Dose - Vancomycin) 1 dose .XX ASDIRECTED [facility] Stop: 07/21/20 23:00 Vancomycin HCl (Vancocin) Confirm Administered Dose 1 gm .ROUTE .STK-MED ONE Stop: 07/17/20 21:34 Last Admin: 07/17/20 23:07 Dose: Not Given Documented by: Venlafaxine HCl (Effexor) 37.5 mg PO BID [facility] - Exam Quality Assessment: No: Supplemental Oxygen, DVT Prophylaxis (contraindiated ) General: Alert, Cooperative, No Acute Distress. No: Oriented HEENT: Pupils Equal, Pupils Reactive, Mucous Membr. Moist/[place], Scleral Icterus Neck: Supple, Trachea Midline Lungs: Normal Respiratory Effort, Decreased Breath Sounds, Rales Cardiovascular: Regular Rate, Regular Rhythm GI/Abdominal Exam: Normal Bowel Sounds, Soft, No Distention, Distended, Tender, Hernia (Male) Exam: Deferred Back Exam: Normal Inspection, Decreased Range of Motion Extremities: Normal Range of Motion, Non-Tender, Pedal Edema Skin: Warm, Dry, Intact Neurological: No New Focal Deficit Psy/Mental Status: Alert Sepsis Event Note - Evaluation Sepsis Screening Result: No Definite Risk - Focused Exam Vital Signs: Vital Signs Pulse Resp BP Pulse Ox 07/31/20 08:52 100/39 L 07/31/20 07:06 100/39 L 07/31/20 06:19 67 92 L 07/31/20 06:18 63 16 89 L - Problem List & Annotations (1) Tobacco use disorder SNOMED Code(s): 468225769 Code(s): F17.200 - NICOTINE DEPENDENCE, UNSPECIFIED, UNCOMPLICATED Status: Chronic Priority: Medium Current Visit: No (2) History of alcohol abuse SNOMED Code(s): 394747990 Code(s): F10.11 - ALCOHOL ABUSE, IN REMISSION Status: Chronic Priority: Medium Current Visit: No (3) Esophageal varices without bleeding SNOMED Code(s): 21408181 Code(s): I85.00 - ESOPHAGEAL VARICES WITHOUT BLEEDING Status: Chronic Priority: Medium Current Visit: No Qualifiers: Esophageal varices type: unspecified type Qualified Code(s): I85.00 - Esophageal varices without bleeding (4) Failure to thrive SNOMED Code(s): 78769761 Code(s): CKB8221 - Status: Acute Priority: Medium Current Visit: Yes Onset Date: ~07/19/20 Qualifiers: Failure to thrive age range: in adult Qualified Code(s): R62.7 - Adult failure to thrive (5) Difficulty walking SNOMED Code(s): 817951342 Code(s): R26.2 - DIFFICULTY IN WALKING, NOT ELSEWHERE CLASSIFIED Status: Acute Priority: Low Current Visit: Yes Onset Date: ~07/19/20 (6) Medical non-compliance SNOMED Code(s): 797893377 Code(s): Z91.19 - PATIENT'S NONCOMPLIANCE [facility] Status: Chronic Priority: High Current Visit: Yes (7) Serum ammonia increased SNOMED Code(s): 5896696 Code(s): E72.20 - DISORDER OF UREA CYCLE METABOLISM, UNSPECIFIED Status: Chronic Priority: High Current Visit: Yes (8) Anemia SNOMED Code(s): 972431830 Code(s): D64.9 - ANEMIA, UNSPECIFIED Status: Chronic Priority: High Current Visit: Yes Qualifiers: Anemia type: bone marrow failure Bone marrow failure anemia type: unspecified bone marrow failure Qualified Code(s): D61.9 - Aplastic anemia, unspecified (9) Bilateral lower leg cellulitis SNOMED Code(s): 537318026 Code(s): L03.116 - CELLULITIS OF LEFT LOWER LIMB; L03.115 - CELLULITIS OF RIGHT LOWER LIMB Status: Acute Priority: Low Current Visit: Yes Onset Date: ~07/19/20 (10) Cirrhosis of liver SNOMED Code(s): 23704878 Code(s): K74.60 - UNSPECIFIED CIRRHOSIS OF LIVER Status: Chronic Priorit y: High Current Visit: Yes Qualifiers: Hepatic cirrhosis type: alcoholic cirrhosis Ascites presence: with ascites Qualified Code(s): K70.31 - Alcoholic cirrhosis of liver with ascites (11) Dependent edema SNOMED Code(s): 862757273 Code(s): R60.9 - EDEMA, UNSPECIFIED Status: Acute Priority: High Current Visit: Yes (12) Elevated INR SNOMED Code(s): 400051701 Code(s): R79.1 - ABNORMAL COAGULATION PROFILE Status: Chronic Priority: Medium Current Visit: Yes (13) Hypokalemia SNOMED Code(s): 42251450 Code(s): E87.6 - HYPOKALEMIA Status: Resolved Priority: High Current Visit: Yes (14) Hyponatremia SNOMED Code(s): 50193773 Code(s): E87.1 - HYPO-OSMOLALITY AND HYPONATREMIA Status: Acute Priority: Medium Current Visit: Yes Onset Date: ~07/19/20 (15) Thrombocytopenia SNOMED Code(s): 859899503 Code(s): D69.6 - THROMBOCYTOPENIA, UNSPECIFIED Status: Chronic Priority: High Current Visit: Yes (16) Depression SNOMED Code(s): 17301559 Code(s): F32.9 - MAJOR DEPRESSIVE DISORDER, SINGLE EPISODE, UNSPECIFIED Status: Chronic Priority: Medium Current Visit: Yes Qualifiers: Depression Type: other depression Qualified Code(s): F32.89 - Other specified depressive episodes (17) Hepatic encephalopathy SNOMED Code(s): 92352546 Code(s): K72.90 - HEPATIC FAILURE, UNSPECIFIED WITHOUT COMA Status: Chronic Priority: High Current Visit: Yes (18) Lactic acidosis SNOMED Code(s): 48690566 Code(s): E87.2 - ACIDOSIS Status: Acute Priority: High Current Visit: Yes (19) Hypoxia SNOMED Code(s): 463007095 Code(s): R09.02 - HYPOXEMIA Status: Acute Priority: High Current Visit: Yes (20) Elevated d-dimer SNOMED Code(s): 350317093 Code(s): R79.89 - OTHER SPECIFIED ABNORMAL FINDINGS OF BLOOD CHEMISTRY Status: Acute Priority: High Current Visit: Yes (21) Respiratory failure SNOMED Code(s): 737644657 Code(s): J96.90 - RESPIRATORY FAILURE, UNSP, UNSP W HYPOXIA OR HYPERCAPNIA Status: Resolved Priority: High Current Visit: Yes Qualifiers: Chronicity: acute Respiratory failure complication: hypoxia Qualified Code(s): J96.01 - Acute respiratory failure with hypoxia (22) Suspected COVID-19 virus infection SNOMED Code(s): 253328837 Code(s): Z20.828 - CONTACT W AND EXPOSURE TO OTH VIRAL COMMUNICABLE DISEASES Status: Ruled-out Priority: High Current Visit: Yes (23) S/P thoracentesis SNOMED Code(s): 101150716, 61553303, 602029508 Code(s): Z98.890 - OTHER SPECIFIED POSTPROCEDURAL STATES Status: Acute Priority: Low Current Visit: Yes (24) Status post incision and drainage SNOMED Code(s): 558081413, 475946850 Code(s): Z98.890 - OTHER SPECIFIED POSTPROCEDURAL STATES Status: Acute Priority: Medium Current Visit: Yes (25) Hallucination, visual SNOMED Code(s): 53163261 Code(s): R44.1 - VISUAL HALLUCINATIONS Status: Acute Priority: Low Current Visit: Yes Onset Date: ~07/19/20 (26) Gout SNOMED Code(s): 90597654 Code(s): M10.9 - GOUT, UNSPECIFIED Status: Acute Priority: High Current Visit: Yes Qualifiers: Gout site: toe Gout etiology: unspecified cause Chronicity: acute Laterality: right Qualified Code(s): M10.9 - Gout, unspecified (27) Umbilical hernia SNOMED Code(s): 761921106 Code(s): K42.9 - UMBILICAL HERNIA WITHOUT OBSTRUCTION OR GANGRENE Status: Chronic Priority: Low Current Visit: No Qualifiers: Obstruction and gangrene presence: without obstruction or gangrene Qualified Code(s): K42.9 - Umbilical hernia without obstruction or gangrene - Problem List Review Problem List Initiated/Reviewed/Updated: Yes - My Orders Last 24 Hours: My Active Orders 07/30/20 15:00 Lactulose [Cephulac] 15 gm PO TID 07/31/20 06:00 Furosemide [Lasix] 40 mg PO DAILY@0600 07/31/20 09:00 Sodium Chloride/KCl [Thermotabs] 2 each PO BID 07/31/20 14:00 Furosemide [Lasix] 20 mg PO DAILY@1400 08/01/20 05:11 MAGNESIUM [CHEM] AM 08/02/20 05:11 MAGNESIUM [CHEM] AM 08/03/20 05:11 MAGNESIUM [CHEM] AM - Assessment Assessment:: 07/13/2020 - Day of Admission -64 yo Male who presents to ED on 07/12/20 with confusion and bilateral cellulitis -History of hepatic encephalopathy, End stage liver disease, ETOH abuse, Tobacco use, Esophageal varices with banding, depression, dependant edema -Patient admits to ED provider that he has not been taking his medications because he forgets -Denies any ETOH use for past 2 months (ETOH in ED was 0.00) -Kept in ED overnight due to bed shortage statewide and us being on diversion -Started on Vancomycin in ED foe cellulitis -Given lactulose, spironolactone, lasix, IV fluids, Xanax, vancomycin in ED -No WBC in ED, although likely cannot mount immunologic defense due to alcoholic bone marrow suppression -Sepsis criteria: -Bilateral cellulitis, No tachycardia, tachypnea, WBC, or fever -Hypotension likely 2/2 end stage liver failure, Lactate >2 likely 2/2 chronic ETOH abuse, Bilirubin >2 chronically, Platelets <100 chronically, INR elevated 2/2 End stage liver disease -Does not meet criteria -Per ED provider social work states patient apartment was very unkempt -Social work reports patient has been known to leave water running and burners on in apartment. Patient is being evicted. 07/14/2020 * Small improvement in cellulitis * Procalcitonin was negative at 0.05 * White count 6.1 and CRP 2.1 * Lactic acid is chronically elevated due to liver disease at 2.6. Total bilirubin elevated at 7.8 and direct bilirubin 3.8 * Oxygen requirement has increased to 4 L/min * Sodium chronically low at 131 07/15/2020 * Continued improvement in cellulitis * WBC remains WNL at 7.19 with CRP of 2.2 * Oxygen requirement has decreased to 2L * Blood cultures negative thus far * Sodium improved to 133 * Potassium 4.3 * Dr. Powell saw patient and recommends withholding patients effexor and monitoring * Patient remains quite confused 07/16/20 * Continue current treatment * Routine AM labs with Ammonia * Midodrine 5 mg po TIDAC * Remains confused with hallucinations (seeing squirrels inside his room) * May consider anti-psychotic medications if needed * Need Tele-psych consult 07/17/20 * Continue current treatment: Rocephin and Vancomycin * Routine AM labs * Offered I&D but patient refused * Wound culture on right ramos * Remains confused with hallucinations (seeing squirrels inside his room) * May consider anti-psychotic medications if needed * Need Tele-psych follow up * LOS > 96 HRS due to need for placement 07/18/20 * WBC improved to 10.41 from 11.68 * CRP 9.1 from 5.7 * Creatinine 1.4 with GFR of 51 * Requiring 6L O2 via NC * Wound culture showing no growth * MELD-Na score on admission calculated to be 29 points - 27-32% estimated 90- day mortality * D-Dimer 7.29 * BNP 1009 * INR 2.33 * CTA shows pleural effusions and ground glass opacities concerning for viral/atypical pneumonia\ * Discussed plan with Dr. Castro - will start covid-19 treatment protocol 07/19/2020 * WBC 8.31 * CRP Up to 11.4 * Ferritin 513 * LDH 475 * Procalcitonin 0.43 * Creatinine 1.5, GFR 47 * INR 2.24 * On high flow oxygen * Thoracentesis performed today by Dr. Shipley with just over 1L clear straw colored output 07/20/2020 * Echo results show: * 1. LVEF, by visual estimation, is 65-70% * 2. Hyperdynamic left ventricular systolic function * 3. Verbally normal right ventricular systolic function and size, not well visualized. * 4. The aortic valve is not well visualized. * 5. Trace mitral valve regurgitation * 6. Trace tricuspid valve regurgitation. * 7. The right ventricular systolic pressure is unable to be determined. * 8. There is a pleural effusion * WBC 9.58 * CRP 10.2 * Sodium 130 and stable * Creatinine 1.5 and GFR 47 and stable * Awaiting thoracentesis culture * VRP negative * Covid-19 negative (4th time) * Discontinued COVID-19 treatment * Discontinue isolation precautions once off of high flow 07/21/2020 * WBC 10.17 * CRP 8.4 * Sodium 130 and stable * Creatinine 1.3 and GFR 55 * S/P I&D of right ramos with Dr. Cazares on 07/20/2020 * Purulent bloody drainage * No cultures sent due to patient being on abx for several days * O2 down to 4L * Thoracentesis cultures show no growth * Continue current treatment plan * Legs continue to improve 07/22/2020 * No labs done today * Patient is stable without any complaints * He has been weaned off of oxygen * Cultures continue to be negative 07/23/2020 * Patient is back really 1 on 1 to 2L nasal cannula given oral tolerated * Otherwise he is without complaints. 07/24/2020 * Currently on 1 L nasal cannula * White count 9.6 with moderate toxic granulation, hemoglobin * No complaints. * Currently on Keflex and doxycycline 07/25/2020 * Off of oxygen today * No new complaints - still reports foot and back pain * On Keflex - doxycycline was discontinued * Serosanguineous drainage from left hip * Sodium 129 and stable * Pending placement * FORDER OPERATOR evaluation on Saturday noted significant cognitive deficit. 04/17 on MOCA 07/26/2020 * Remains off of oxygen * Worsening pedal edema - weight up 14lbs on admission * Increase lasix dosing * No labs obtained today due to patient stability * Discontinue abx - completed therapy * SW continuing to work toward discharge plan 07/27/20 * Remains sable and off of oxygen * Continue increased lasix dosing * Labs remain grossly stable * Will hold off checking labs tomorrow and consider re-check * Legs edematous but overall look good * SW continues to work on discharge plan 07/28/20 * Generalized edema still noted. Continue Lasix. * No labs drawn today. * Dressing intact to right lower extremity. * Complains of pain to left great toe and fifth digit. Left great toe is reddened but there are no open areas and no drainage noted. Patient reports that he stubbed that toe, however I cannot assess the certainty of this due to the patient's cognition and lack of orientation. 07/29/2020 * Sodium down to 126 today * Fluid restriction started * Continued dressing on right lower extremity * Creatinine 1.4 and GFR 51 (stable) * Re-check BMP tomorrow * Given continued left great toe pain will check uric acid tomorrow * Remains confused * SW working on guardianship/placement. 07/30/2020 * Sodium remains 126 * Chloride 96 * Creatinine 1.3 and GFR 55 * Start low dose ARB at recommendation of Dr. Gomez * Will decrease PM lasix dose * Uric Acid 7.4 and patient complaining of toe pain * Will give colchicine 1.2mg followed by 0.6 mg * Recheck AM labs * Decreased lactulose dosing at patient request after discussion with Dr. Gomez * Remains slightly confused * Awaiting placement 07/31/2020 * Sodium improved to 127 * Potassium 3.9 * Chloride 94 * Creatine now 1.9 and GFR 36 * Kidney function likely decreased 2/2 ARB and colchicine * Minimal PO intake * Will stop ARB * Re-check AM labs including ammonia * Remains slightly confused but does remember conversations with nurse manager e commerce; states he feels like he is confused * Continued hallucinations * Will increase haldol dosing to 3mg at bedtime * Schedule melatonin * Dietary to continue to follow * Reports poor sleep * Thermotabs started - Plan Plan:: Bilateral cellulitis/Stasis Dermatitis, resolved Dependant edema Small hematoma/abscess on right ramos, resolved Leukocytosis, resolved Hypoxemia, resolved S/P Right ramos I&D Gout -Completed doxycycline -Completed Keflex -Monitor leg inflammation -Decrease oral Lasix to 40 mg daily at 0600 and 20mg daily at 1400 with spironolactone 100 mg daily -Discontinue cozaar due to worsening renal function and hypotension Failure to thrive Hypokalemia, resolved Hyponatremia Lactic Acidosis, likely resolved Medical non-compliance Hx/o hypomagnesemia Hypoalbuminemia, unchanged Relative Hypotension -Consult CM/SW -patient services rep working on placement as patient is not safe to be discharged home alone. -Chain Maker Hand consult -Monitor electrolytes/magnesium and supplement as needed -On Midodrine 5 mg po TID -Fluid restriction -Repeat BMP tomorrow to monitor sodium -Asymptomatic -Start sodium tablets -Changing diuretics/ARB as above History of ETOH abuse Hepatic encephalopathy End-stage ETOH related cirrhosis Elevated INR Elevated Bilirubin Hx/o esophageal varices Thrombocytopenia Macrocytic Normochromic Anemia Elevated serum ammonia Hyperlactatemia Umbilical hernia -Decrease Lactulose to 15mg TID as patient is complaining of significant diarrhea -Continue Lasix as ordered -Continue spironolactone 100mg daily -Pharmacological DVT prophylaxis contraindicated -Continue folic acid, MV, thiamine supplementation -Low protein diet -Consult parking meter servicer -Due to end-stage cirrhosis we can expect BPs on the lower side -hyperlactatemia is likely 2/2 to end-stage liver disease and chronic ETOH abuse. -Procalcitonin was 0.05 ruling out sepsis. Depression Hallucinations -Dr. Powell consulted and started the patient on Haldol- increase to 3mg today -Discontinue Effexor -Schedule melatonin to support sleep Tobacco use disorder -Cessation counseling at discharge -Nicotine patches- decreased to 7mg today Code status: DNR/DNI PCP: Dr. Mccollum DVT prophylaxis: Pharmacological prophylaxis contraindicated due to significant esophageal varices history, Elevated INR, thrombocytopenia. Mechanical prophylaxis contraindicated due to bilateral LE cellulitis, dependant LE edema. Disposition: Patient admitted due to cellulitis, electrolyte abnormalities, failure to thrive and need for placement. Social: Patient reportedly lives in an apartment. [facility] is following patient. Patient has history of leaving water running and forgetting to turn of burner. Per ED note apartment is very unkempt and there are concerns for patient safety. SW/CM consulted. Prognosis: Overall poor prognosis due to end-stage ETOH cirrhosis. LOS >96 HRS due to need for placement
[2020-07-31] MEDS: Magnesium Oxide 400 MG Tab PO SCH (10:42)
[2020-07-31] MEDS: Furosemide 20 MG Tab PO SCH (14:26)
[2020-07-31] MEDS: Nicotine 14 MG/24 Hr Patch TRDERM SCH (14:26)
[2020-07-31] MEDS: Famotidine 40 MG/5 ML Bottle PO SCH (20:01)
[2020-07-31] MEDS: Haloperidol 1 MG Tab PO SCH (20:02)
[2020-07-31] MEDS: Melatonin 3 MG Tab PO SCH (20:02)
[2020-08-01] MEDS: Midodrine 5 MG Tab PO SCH ×3 (06:26→17:34)
[2020-08-01] MEDS: oxyCODONE 5 MG Tab PO PRN (06:26)
[2020-08-01] MEDS: Furosemide 40 MG Tab PO SCH (06:26)
[2020-08-01] MEDS: Spironolactone 100 MG Tab PO SCH (10:20)
[2020-08-01] MEDS: Sodium Chloride/Potassium Chloride Tab PO SCH ×2 (10:20→21:06)
[2020-08-01] MEDS: Magnesium Oxide 400 MG Tab PO SCH (10:21)
[2020-08-01] MEDS: Folic Acid 1 MG Tab PO SCH (10:21)
[2020-08-01] MEDS: Multivitamins,Therapeutic Tab PO SCH (10:21)
[2020-08-01] MEDS: Thiamine 100 MG Tab PO SCH (10:21)
[2020-08-01] MEDS: Lactulose Soln 10 GM/15 ML 30 ML UD Cup PO SCH ×3 (10:21→21:04)
[2020-08-01] MEDS: Nicotine 7 MG/24 Hr Patch TRDERM SCH (10:22)
--- NOTE | 2020-08-01 11:42 | PCM.PN ---
- General Info Date of Service: 08/01/20 Admission Dx/Problem (Free Text): Admission Diagnosis/Problem Admission Diagnosis/Problem Cellulitis Subjective Update: Patient was sitting up in the chair eating breakfast when I saw him on rounds this morning. He states he feels like he is doing better, and although he is confused he did remember seeing me last week. As he looked at me and states that his toe pain is much better from when I last saw him. He, however, was unable to tell me the year or the month and could just report to me that he is in hospital. Otherwise, he had no complaints. Functional Status: Reports: Pain Controlled, Tolerating Diet, Ambulating, Urinating - Review of Systems General: Reports: No Symptoms HEENT: Reports: No Symptoms Pulmonary: Reports: No Symptoms Cardiovascular: Reports: No Symptoms Gastrointestinal: Reports: No Symptoms Genitourinary: Reports: No Symptoms Musculoskeletal: Reports: No Symptoms Skin: Reports: Bruising Neurological: Reports: Confusion Psychiatric: Reports: Confusion - Patient Data Vitals - Most Recent: Last Vital Signs Temp 98.4 F 08/01/20 06:28 Pulse 69 08/01/20 06:28 Resp 20 08/01/20 06:28 BP 93/59 L 08/01/20 09:03 Pulse Ox 95 08/01/20 06:28 Weight - Most Recent: 195 lb 14.4 oz I&O - Last 24 Hours: Intake & Output 07/31/20 08/01/20 08/01/20 22:59 06:59 14:59 Intake Total 400 400 120 Output Total 100 250 Balance 300 150 120 Lab Results Last 24 Hours: Laboratory Results - last 24 hr 08/01/20 08/01/20 08/01/20 Range/Units 06:23 06:23 06:23 WBC 4.59 (4.23-9.07) K/mm3 RBC 2.73 L (4.63-6.08) M/mm3 Hgb 9.3 L (13.7-17.5) gm/dl Hct 27.4 L (40.1-51.0) % MCV 100.4 H (79.0-92.2) fl MCH 34.1 H (25.7-32.2) pg MCHC 33.9 (32.2-35.5) g/dl RDW Std Deviation 72.9 H (35.1-43.9) fL Plt Count 94 L (163-337) K/mm3 MPV 10.2 (9.4-12.3) fl Neut % (Auto) 60.0 (34.0-67.9) % Lymph % (Auto) 25.5 (21.8-53.1) % [place] % (Auto) 11.3 (5.3-12.2) % Eos % (Auto) 2.4 (0.8-7.0) Baso % (Auto) 0.4 (0.1-1.2) % Neut # (Auto) 2.75 (1.78-5.38) K/mm3 Lymph # (Auto) 1.17 L (1.32-3.57) K/mm3 [place] # (Auto) 0.52 (0.30-0.82) K/mm3 Eos # (Auto) 0.11 (0.04-0.54) K/mm3 Baso # (Auto) 0.02 (0.01-0.08) K/mm3 Manual Slide Review Abnormal smear Sodium 128 L (136-145) mEq/L Potassium 4.0 (3.5-5.1) mEq/L Chloride 95 L (98-107) mEq/L Carbon Dioxide 20 L (21-32) mEq/L Anion Gap 17.0 H (5-15) BUN 38 H (7-18) mg/dL Creatinine 2.3 H (0.7-1.3) mg/dL Est Cr Clr Drug Dosing 30.98 mL/min Estimated GFR (MDRD) 29 (>60) mL/min BUN/Creatinine Ratio 16.5 (14-18) Glucose 89 (80-115) mg/dL Calcium 8.5 (8.5-10.1) mg/dL Magnesium 2.6 H (1.8-2.4) mg/dl Total Bilirubin 7.7 H (0.2-1.0) mg/dL AST 65 H (15-37) U/L ALT 77 H (16-63) U/L Alkaline Phosphatase 79 (46-116) U/L Ammonia 27 (11-32) umol/L Total Protein 6.0 L (6.4-8.2) g/dl Albumin 2.0 L (3.4-5.0) g/dl Globulin 4.0 gm/dL Albumin/Globulin Ratio 0.5 L (1-2) Med Orders - Current: Current Medications Acetaminophen (Tylenol) 650 mg PO Q4H PRN PRN Reason: Pain/Fever Last Admin: 07/27/20 14:13 Dose: 650 mg Documented by: Famotidine (Pepcid) 40 mg PO BEDTIME [facility] Last Admin: 07/31/20 20:01 Dose: 5 ml Documented by: Folic Acid (Folic Acid) 1 mg PO DAILY [facility] Last Admin: 08/01/20 10:21 Dose: 1 mg Documented by: Furosemide (Lasix) 40 mg PO DAILY@0600 [facility] Last Admin: 08/01/20 06:26 Dose: 40 mg Documented by: Furosemide (Lasix) 20 mg PO DAILY@1400 [facility] Last Admin: 07/31/20 14:26 Dose: 20 mg Documented by: Haloperidol (Haldol) 3 mg PO BEDTIME [facility] Last Admin: 07/31/20 20:02 Dose: 3 mg Documented by: Lactulose (Cephulac) 15 gm PO TID [facility] Last Admin: 08/01/20 10:21 Dose: 15 gm Documented by: Magnesium Oxide (Magnesium Oxide) 800 mg PO 1100 [facility] Last Admin: 08/01/20 10:21 Dose: 800 mg Documented by: Melatonin (Melatonin) 3 mg PO BEDTIME [facility] Last Admin: 07/31/20 20:02 Dose: 3 mg Documented by: Midodrine (Midodrine) 5 mg PO TIDAC [facility] Last Admin: 08/01/20 10:21 Dose: 5 mg Documented by: Miscellaneous Information (Remove Patch) 0 ea TRDERM Q24H [facility] Multivitamins (Thera) 1 each PO DAILY [facility] Last Admin: 08/01/20 10:21 Dose: 1 each Documented by: Nicotine (Habitrol) 7 mg TRDERM DAILY [facility] Last Admin: 08/01/20 10:22 Dose: 7 mg Documented by: Ondansetron HCl (Zofran Odt) 4 mg PO Q4H PRN PRN Reason: Nausea/Vomiting Last Admin: 07/29/20 22:22 Dose: 4 mg Documented by: Oral Electrolytes (Thermotabs) 2 each PO BID [facility] Last Admin: 08/01/20 10:20 Dose: 2 each Documented by: Oxycodone HCl (Oxycodone) 5 mg PO Q6H PRN PRN Reason: Pain (moderate 4-6) Last Admin: 07/29/20 22:22 Dose: 5 mg Documented by: Oxycodone HCl (Oxycodone) 10 mg PO Q6H PRN PRN Reason: Pain (severe 7-10) Last Admin: 08/01/20 06:26 Dose: 10 mg Documented by: Spironolactone (Aldactone) 100 mg PO DAILY [facility] Last Admin: 08/01/20 10:20 Dose: 100 mg Documented by: Thiamine HCl (Vitamin B-1) 100 mg PO DAILY [facility] Last Admin: 08/01/20 10:21 Dose: 100 mg Documented by: Discontinued Medications Alprazolam (Xanax) 1 mg PO BEDTIME ONE Stop: 07/12/20 21:01 Last Admin: 07/12/20 21:24 Dose: 1 mg Documented by: Alprazolam (Xanax) 1 mg PO BEDTIME [facility] Cephalexin (Keflex) 500 mg PO Q8H [facility] Stop: 07/27/20 06:01 Last Admin: 07/27/20 06:47 Dose: 500 mg Documented by: Colchicine (Colcrys) 1.2 mg PO ONETIME ONE Stop: 07/30/20 09:13 Last Admin: 07/30/20 10:24 Dose: 1.2 mg Documented by: Colchicine (Colcrys) 0.6 mg PO ONETIME ONE Stop: 07/30/20 11:01 Last Admin: 07/30/20 10:25 Dose: 0.6 mg Documented by: Dexamethasone (Dexamethasone) 6 mg PO Q24H [facility] Stop: 07/27/20 16:01 Last Admin: 07/19/20 15:51 Dose: 6 mg Documented by: Doxycycline Hyclate (Vibramycin) 100 mg PO BID [facility] Last Admin: 07/25/20 08:40 Dose: 100 mg Documented by: Folic Acid (Folic Acid) 1 mg PO DAILY [facility] Furosemide (Lasix) 40 mg IVPUSH NOW ONE Stop: 07/12/20 19:17 Last Admin: 07/12/20 19:38 Dose: 40 mg Documented by: Furosemide (Lasix) 40 mg IVPUSH NOW ONE Stop: 07/13/20 09:15 Last Admin: 07/13/20 09:42 Dose: 40 mg Documented by: Furosemide (Lasix) 40 mg IVPUSH DAILY [facility] Furosemide (Lasix) 20 mg IVPUSH DAILY [facility] Last Admin: 07/14/20 10:10 Dose: 20 mg Documented by: Furosemide (Lasix) 40 mg IVPUSH DAILY [facility] Last Admin: 07/24/20 08:33 Dose: 40 mg Documented by: Furosemide (Lasix) 40 mg PO DAILY [facility] Last Admin: 07/26/20 09:55 Dose: 40 mg Documented by: Furosemide (Lasix) 40 mg PO BIDDIURETIC [facility] Last Admin: 07/30/20 06:28 Dose: 40 mg Documented by: Furosemide (Lasix) 20 mg IVPUSH NOW ONE Stop: 07/26/20 11:46 Last Admin: 07/26/20 11:45 Dose: 20 mg Documented by: Haloperidol (Haldol) 2 mg PO BEDTIME [facility] Last Admin: 07/30/20 21:02 Dose: 2 mg Documented by: Sodium Chloride (Normal Saline) 1,000 mls @ 125 mls/hr IV ASDIRECTED [facility] Last Admin: 07/12/20 17:03 Dose: 125 mls/hr Documented by: Vancomycin HCl 1.5 gm/ Sodium (Chloride) 500 mls @ 250 mls/hr IV ONETIME ONE Stop: 07/12/20 19:21 Last Admin: 07/12/20 20:07 Dose: 250 mls/hr Documented by: Vancomycin HCl 1 gm/ Sodium (Chloride) 250 mls @ 250 mls/hr IV Q12H [facility] Last Admin: 07/14/20 23:00 Dose: 250 mls/hr Documented by: Ceftriaxone Sodium 2 gm/ (Sodium Chloride) 100 mls @ 200 mls/hr IV Q24H [facility] Last Admin: 07/14/20 14:38 Dose: 200 mls/hr Documented by: Sodium Chloride (Normal Saline) 1,000 mls @ 100 mls/hr IV ASDIRECTED [facility] Stop: 07/15/20 00:59 Last Admin: 07/14/20 00:04 Dose: 100 mls/hr Documented by: Vancomycin HCl 1 gm/ Sodium (Chloride) 250 mls @ 250 mls/hr IV Q24H [facility] Stop: 07/21/20 23:00 Last Admin: 07/21/20 20:20 Dose: 250 mls/hr Documented by: Ceftriaxone Sodium 2 gm/ (Sodium Chloride) 100 mls @ 200 mls/hr IV Q24H [facility] Stop: 07/21/20 17:00 Last Admin: 07/21/20 15:10 Dose: 200 mls/hr Documented by: Sodium Chloride (Normal Saline) 100 mls @ 75 mls/hr IV ASDIRECTED [facility] Stop: 07/18/20 17:00 Azithromycin 500 mg/ Sodium (Chloride) 250 mls @ 250 mls/hr IV Q24H [facility] Last Admin: 07/20/20 15:19 Dose: 250 mls/hr Documented by: Remdesivir 200 mg/ Sodium (Chloride) 250 mls @ 250 mls/hr IV ONETIME ONE Stop: 07/18/20 17:29 Last Admin: 07/18/20 17:55 Dose: 250 mls/hr Documented by: Remdesivir 100 mg/ Sodium (Chloride) 100 mls @ 100 mls/hr IV Q24H [facility] Stop: 07/22/20 17:29 Last Admin: 07/19/20 17:14 Dose: 100 mls/hr Documented by: Albumin Human (Flexbumin 25%) 12.5 gm in 50 mls @ 100 mls/hr IV ONETIME ONE Stop: 07/30/20 10:04 Last Admin: 07/30/20 10:25 Dose: 100 mls/hr Documented by: Iopamidol (Isovue-370 (76%)) 100 ml IVPUSH ONETIME ONE Stop: 07/18/20 13:38 Last Admin: 07/18/20 16:43 Dose: Not Given Documented by: Lactulose (Cephulac) 20 gm PO TID [facility] Last Admin: 07/13/20 15:46 Dose: Not Given Documented by: Lactulose (Cephulac) 20 gm PO TID [facility] Last Admin: 07/15/20 10:21 Dose: 20 gm Documented by: Lactulose (Cephulac) 30 gm PO TID [facility] Last Admin: 07/30/20 08:33 Dose: 30 gm Documented by: Lidocaine/Epinephrine (Xylocaine 1% With Epinephrine 1:100,000) 20 ml INJECT ONETIME ONE Stop: 07/20/20 13:31 Last Admin: 07/20/20 14:59 Dose: Not Given Documented by: Losartan Potassium (Cozaar) 12.5 mg PO DAILY [facility] Last Admin: 07/31/20 08:52 Dose: Not Given Documented by: Magnesium Oxide (Magnesium Oxide) 400 mg PO BID [facility] Stop: 07/21/20 23:00 Last Admin: 07/21/20 20:19 Dose: 400 mg Documented by: Melatonin (Melatonin) 3 mg PO BEDTIME PRN PRN Reason: insomnia Last Admin: 07/25/20 22:03 Dose: 3 mg Documented by: Miscellaneous Information (Remove Patch) 0 ea TRDERM Q24H [facility] Last Admin: 07/31/20 14:26 Dose: 1 ea Documented by: Nicotine (Habitrol) 14 mg TRDERM Q24H [facility] Last Admin: 07/31/20 14:26 Dose: 14 mg Documented by: Non-Formulary Medication (Magnesium Oxide [Magnesium Oxide]) 400 mg PO DAILY [facility] Ondansetron HCl (Zofran) 4 mg IV Q6H PRN PRN Reason: Nausea/Vomiting Ondansetron HCl (Zofran) Confirm Administered Dose 4 mg .ROUTE .STK-MED ONE Stop: 07/28/20 11:03 Last Admin: 07/28/20 12:36 Dose: Not Given Documented by: Oxycodone HCl (Oxycodone) 5 - 10 mg PO Q6H PRN PRN Reason: Pain Potassium Chloride (Klor-Con M20) 40 meq PO TID [facility] Stop: 07/14/20 09:01 Last Admin: 07/14/20 10:09 Dose: 40 meq Documented by: Sodium Chloride (Saline Flush) 10 ml FLUSH ONETIME PRN PRN Reason: IV FLUSH Stop: 07/18/20 17:00 Spironolactone (Aldactone) 25 mg PO ONETIME ONE Stop: 07/12/20 19:18 Last Admin: 07/12/20 19:38 Dose: 25 mg Documented by: Spironolactone (Aldactone) 25 mg PO ONETIME ONE Stop: 07/13/20 09:16 Last Admin: 07/13/20 09:50 Dose: 25 mg Documented by: Spironolactone (Aldactone) 25 mg PO DAILY [facility] Spironolactone (Aldactone) 50 mg PO DAILY [facility] Last Admin: 07/15/20 10:20 Dose: 50 mg Documented by: Thiamine HCl (Vitamin B-1) 100 mg PO DAILY [facility] Vancomycin HCl (Pharmacy To Dose - Vancomycin) 1 dose .XX ASDIRECTED [facility] Stop: 07/21/20 23:00 Vancomycin HCl (Vancocin) Confirm Administered Dose 1 gm .ROUTE .STK-MED ONE Stop: 07/17/20 21:34 Last Admin: 07/17/20 23:07 Dose: Not Given Documented by: Venlafaxine HCl (Effexor) 37.5 mg PO BID [facility] - Exam Quality Assessment: No: Supplemental Oxygen, DVT Prophylaxis (Contraindicated due to low platelet count, liver failure, and history of esophageal varices.) General: Alert, Cooperative, No Acute Distress. No: Oriented (Oriented to self only.) HEENT: Pupils Equal, Pupils Reactive, Mucous Membr. Moist/[place] Neck: Supple, Trachea Midline. No: Lymphadenopathy Lungs: Clear to Auscultation, Normal Respiratory Effort Cardiovascular: Regular Rate, Regular Rhythm GI/Abdominal Exam: Normal Bowel Sounds, Soft, Non-Tender, Other (Ascites) (Male) Exam: Deferred Back Exam: Normal Inspection, Full Range of Motion Extremities: Normal Inspection, Normal Range of Motion, Non-Tender, Pedal Edema Peripheral Pulses: 2+: Radial (L), Radial (R), Dorsalis Pedis (L), Dorsalis Pedis (R) Skin: Warm, Dry, Intact, Ecchymosis Neurological: No New Focal Deficit Psy/Mental Status: Alert, Normal Affect, Normal Mood Sepsis Event Note - Evaluation Sepsis Screening Result: No Definite Risk - Focused Exam Vital Signs: Vital Signs Temp Pulse Resp BP Pulse Ox 08/01/20 09:03 93/59 L 08/01/20 06:28 98.4 F 69 20 92/47 L 95 - Problem List & Annotations (1) Abscess of right leg SNOMED Code(s): 975893688 Code(s): L02.415 - CUTANEOUS ABSCESS OF RIGHT LOWER LIMB Status: Acute Priority: Medium Current Visit: Yes Onset Date: ~07/19/20 (2) Bilateral lower leg cellulitis SNOMED Code(s): 493686113 Code(s): L03.116 - CELLULITIS OF LEFT LOWER LIMB; L03.115 - CELLULITIS OF RIGHT LOWER LIMB Status: Acute Priority: Low Current Visit: Yes Onset Date: ~07/19/20 (3) Dependent edema SNOMED Code(s): 566780436 Code(s): R60.9 - EDEMA, UNSPECIFIED Status: Acute Priority: High Current Visit: Yes (4) Difficulty walking SNOMED Code(s): 999843022 Code(s): R26.2 - DIFFICULTY IN WALKING, NOT ELSEWHERE CLASSIFIED Status: Acute Priority: Low Current Visit: Yes Onset Date: ~07/19/20 (5) Elevated d-dimer SNOMED Code(s): 851579541 Code(s): R79.89 - OTHER SPECIFIED ABNORMAL FINDINGS OF BLOOD CHEMISTRY Status: Acute Priority: High Current Visit: Yes (6) Failure to thrive SNOMED Code(s): 91041656 Code(s): HMZ0968 - Status: Acute Priority: Medium Current Visit: Yes Onset Date: ~07/19/20 Qualifiers: Failure to thrive age range: in adult Qualified Code(s): R62.7 - Adult failure to thrive (7) Hallucination, visual SNOMED Code(s): 39921878 Code(s): R44.1 - VISUAL HALLUCINATIONS Status: Acute Priority: Low Current Visit: Yes Onset Date: ~07/19/20 (8) Hyponatremia SNOMED Code(s): 70890315 Code(s): E87.1 - HYPO-OSMOLALITY AND HYPONATREMIA Status: Acute Priority: Medium Current Visit: Yes Onset Date: ~07/19/20 (9) Hypoxia SNOMED Code(s): 994736122 Code(s): R09.02 - HYPOXEMIA Status: Acute Priority: High Current Visit: Yes (10) Lactic acidosis SNOMED Code(s): 91358892 Code(s): E87.2 - ACIDOSIS Status: Acute Priority: High Current Visit: Yes (11) S/P thoracentesis SNOMED Code(s): 251377088, 30721076, 271211480 Code(s): Z98.890 - OTHER SPECIFIED POSTPROCEDURAL STATES Status: Acute Priority: Low Current Visit: Yes (12) Status post incision and drainage SNOMED Code(s): 218994789, 988443533 Code(s): Z98.890 - OTHER SPECIFIED POSTPROCEDURAL STATES Status: Acute Priority: Medium Current Visit: Yes (13) Anemia SNOMED Code(s): 191548240 Code(s): D64.9 - ANEMIA, UNSPECIFIED Status: Chronic Priority: High Current Visit: Yes Qualifiers: Anemia type: bone marrow failure Bone marrow failure anemia type: unspecified bone marrow failure Qualified Code(s): D61.9 - Aplastic anemia, unspecified (14) Cirrhosis of liver SNOMED Code(s): 15904233 Code(s): K74.60 - UNSPECIFIED CIRRHOSIS OF LIVER Status: Chronic Priority: High Current Visit: Yes Qualifiers: Hepatic cirrhosis type: alcoholic cirrhosis Ascites presence: with ascites Qualified Code(s): K70.31 - Alcoholic cirrhosis of liver with ascites (15) Depression SNOMED Code(s): 15259756 Code(s): F32.9 - MAJOR DEPRESSIVE DISORDER, SINGLE EPISODE, UNSPECIFIED Status: Chronic Priority: Medium Current Visit: Yes Qualifiers: Depression Type: other depression Qualified Code(s): F32.89 - Other specified depressive episodes (16) Elevated INR SNOMED Code(s): 652120809 Code(s): R79.1 - ABNORMAL COAGULATION PROFILE Status: Chronic Priority: Medium Current Visit: Yes (17) Hepatic encephalopathy SNOMED Code(s): 61255547 Code(s): K72.90 - HEPATIC FAILURE, UNSPECIFIED WITHOUT COMA Status: Chronic Priority: High Current Visit: Yes (18) Medical non-compliance SNOMED Code(s): 244095630 Code(s): Z91.19 - PATIENT'S NONCOMPLIANCE W OTH MEDICAL TREATMENT AND REGIMEN Status: Chronic Priority: High Current Visit: Yes (19) Serum ammonia increased SNOMED Code(s): 7626686 Code(s): E72.20 - DISORDER OF UREA CYCLE METABOLISM, UNSPECIFIED Status: Chronic Priority: High Current Visit: Yes (20) Thrombocytopenia SNOMED Code(s): 355592226 Code(s): D69.6 - THROMBOCYTOPENIA, UNSPECIFIED Status: Chronic Priority: High Current Visit: Yes (21) Hypokalemia SNOMED Code(s): 71977305 Code(s): E87.6 - HYPOKALEMIA Status: Resolved Priority: High Current Visit: Yes (22) Respiratory failure SNOMED Code(s): 677190355 Code(s): J96.90 - RESPIRATORY FAILURE, UNSP, UNSP W HYPOXIA OR HYPERCAPNIA Status: Resolved Priority: High Current Visit: Yes Qualifiers: Chronicity: acute Respiratory failure complication: hypoxia Qualified Code(s): J96.01 - Acute respiratory failure with hypoxia (23) Suspected COVID-19 virus infection SNOMED Code(s): 498090370 Code(s): Z20.828 - CONTACT W AND EXPOSURE TO OTH VIRAL COMMUNICABLE DISEASES Status: Ruled-out Priority: High Current Visit: Yes (24) Esophageal varices without bleeding SNOMED Code(s): 56270915 Code(s): I85.00 - ESOPHAGEAL VARICES WITHOUT BLEEDING Status: Chronic Priority: Medium Current Visit: No Qualifiers: Esophageal varices type: unspecified type Qualified Code(s): I85.00 - Esophageal varices without bleeding (25) History of alcohol abuse SNOMED Code(s): 337884149 Code(s): F10.11 - ALCOHOL ABUSE, IN REMISSION Status: Chronic Priority: Medium Current Visit: No (26) Tobacco use disorder SNOMED Code(s): 569521366 Code(s): F17.200 - NICOTINE DEPENDENCE, UNSPECIFIED, UNCOMPLICATED Status: Chronic Priority: Medium Current Visit: No - Problem List Review Problem List Initiated/Reviewed/Updated: Yes - Assessment Assessment:: 07/13/2020 - Day of Admission -64 yo Male who presents to ED on 07/12/20 with confusion and bilateral cellulitis -History of hepatic encephalopathy, End stage liver disease, ETOH abuse, Tobacco use, Esophageal varices with banding, depression, dependant edema -Patient admits to ED provider that he has not been taking his medications because he forgets -Denies any ETOH use for past 2 months (ETOH in ED was 0.00) -Kept in ED overnight due to bed shortage statewide and us being on diversion -Started on Vancomycin in ED foe cellulitis -Given lactulose, spironolactone, lasix, IV fluids, Xanax, vancomycin in ED -No WBC in ED, although likely cannot mount immunologic defense due to alcoholic bone marrow suppression -Sepsis criteria: -Bilateral cellulitis, No tachycardia, tachypnea, WBC, or fever -Hypotension likely 2/2 end stage liver failure, Lactate >2 likely 2/2 chronic ETOH abuse, Bilirubin >2 chronically, Platelets <100 chronically, INR elevated 2/2 End stage liver disease -Does not meet criteria -Per ED provider social work states patient apartment was very unkempt -Social work reports patient has been known to leave water running and burners on in apartment. Patient is being evicted. 07/14/2020 * Small improvement in cellulitis * Procalcitonin was negative at 0.05 * White count 6.1 and CRP 2.1 * Lactic acid is chronically elevated due to liver disease at 2.6. Total bilirubin elevated at 7.8 and direct bilirubin 3.8 * Oxygen requirement has increased to 4 L/min * Sodium chronically low at 131 07/15/2020 * Continued improvement in cellulitis * WBC remains WNL at 7.19 with CRP of 2.2 * Oxygen requirement has decreased to 2L * Blood cultures negative thus far * Sodium improved to 133 * Potassium 4.3 * Dr. Powell saw patient and recommends withholding patients effexor and monitoring * Patient remains quite confused 07/16/20 * Continue current treatment * Routine AM labs with Ammonia * Midodrine 5 mg po TIDAC * Remains confused with hallucinations (seeing squirrels inside his room) * May consider anti-psychotic medications if needed * Need Tele-psych consult 07/17/20 * Continue current treatment: Rocephin and Vancomycin * Routine AM labs * Offered I&D but patient refused * Wound culture on right ramos * Remains confused with hallucinations (seeing squirrels inside his room) * May consider anti-psychotic medications if needed * Need Tele-psych follow up * LOS > 96 HRS due to need for placement 07/18/20 * WBC improved to 10.41 from 11.68 * CRP 9.1 from 5.7 * Creatinine 1.4 with GFR of 51 * Requiring 6L O2 via NC * Wound culture showing no growth * MELD-Na score on admission calculated to be 29 points - 27-32% estimated 90- day mortality * D-Dimer 7.29 * BNP 1009 * INR 2.33 * CTA shows pleural effusions and ground glass opacities concerning for viral/atypical pneumonia\ * Discussed plan with Dr. Castro - will start covid-19 treatment protocol 07/19/2020 * WBC 8.31 * CRP Up to 11.4 * Ferritin 513 * LDH 475 * Procalcitonin 0.43 * Creatinine 1.5, GFR 47 * INR 2.24 * On high flow oxygen * Thoracentesis performed today by Dr. Shipley with just over 1L clear straw colored output 07/20/2020 * Echo results show: * 1. LVEF, by visual estimation, is 65-70% * 2. Hyperdynamic left ventricular systolic function * 3. Verbally normal right ventricular systolic function and size, not well visualized. * 4. The aortic valve is not well visualized. * 5. Trace mitral valve regurgitation * 6. Trace tricuspid valve regurgitation. * 7. The right ventricular systolic pressure is unable to be determined. * 8. There is a pleural effusion * WBC 9.58 * CRP 10.2 * Sodium 130 and stable * Creatinine 1.5 and GFR 47 and stable * Awaiting thoracentesis culture * VRP negative * Covid-19 negative (4th time) * Discontinued COVID-19 treatment * Discontinue isolation precautions once off of high flow 07/21/2020 * WBC 10.17 * CRP 8.4 * Sodium 130 and stable * Creatinine 1.3 and GFR 55 * S/P I&D of right ramos with Dr. Cazares on 07/20/2020 * Purulent bloody drainage * No cultures sent due to patient being on abx for several days * O2 down to 4L * Thoracentesis cultures show no growth * Continue current treatment plan * Legs continue to improve 07/22/2020 * No labs done today * Patient is stable without any complaints * He has been weaned off of oxygen * Cultures continue to be negative 07/23/2020 * Patient is back really 1 on 1 to 2L nasal cannula given oral tolerated * Otherwise he is without complaints. 07/24/2020 * Currently on 1 L nasal cannula * White count 9.6 with moderate toxic granulation, hemoglobin * No complaints. * Currently on Keflex and doxycycline 07/25/2020 * Off of oxygen today * No new complaints - still reports foot and back pain * On Keflex - doxycycline was discontinued * Serosanguineous drainage from left hip * Sodium 129 and stable * Pending placement * [employer] evaluation on Saturday noted significant cognitive deficit. 04/17 on MOCA 07/26/2020 * Remains off of oxygen * Worsening pedal edema - weight up 14lbs on admission * Increase lasix dosing * No labs obtained today due to patient stability * Discontinue abx - completed therapy * SW continuing to work toward discharge plan 07/27/20 * Remains sable and off of oxygen * Continue increased lasix dosing * Labs remain grossly stable * Will hold off checking labs tomorrow and consider re-check * Legs edematous but overall look good * SW continues to work on discharge plan 07/28/20 * Generalized edema still noted. Continue Lasix. * No labs drawn today. * Dressing intact to right lower extremity. * Complains of pain to left great toe and fifth digit. Left great toe is reddened but there are no open areas and no drainage noted. Patient reports that he stubbed that toe, however I cannot assess the certainty of this due to the patient's cognition and lack of orientation. 07/29/2020 * Sodium down to 126 today * Fluid restriction started * Continued dressing on right lower extremity * Creatinine 1.4 and GFR 51 (stable) * Re-check BMP tomorrow * Given continued left great toe pain will check uric acid tomorrow * Remains confused * [facility] working on guardianship/placement. 07/30/2020 * Sodium remains 126 * Chloride 96 * Creatinine 1.3 and GFR 55 * Start low dose ARB at recommendation of Dr. Gomez * Will decrease PM lasix dose * Uric Acid 7.4 and patient complaining of toe pain * Will give colchicine 1.2mg followed by 0.6 mg * Recheck AM labs * Decreased lactulose dosing at patient request after discussion with Dr. Gomez * Remains slightly confused * Awaiting placement 07/31/2020 * Sodium improved to 127 * Potassium 3.9 * Chloride 94 * Creatine now 1.9 and GFR 36 * Kidney function likely decreased 2/2 ARB and colchicine * Minimal PO intake * Will stop ARB * Re-check AM labs including ammonia * Remains slightly confused but does remember conversations with nurse all source collection manager; states he feels like he is confused * Continued hallucinations * Will increase haldol dosing to 3mg at bedtime * Schedule melatonin * Dietary to continue to follow * Reports poor sleep * Thermotabs started 08/01/20 * Sodium is up to 128 today. * Creatinine 2.3 and GFR 29. * ARB has been discontinued. * Known new hallucinations reported * States discomfort to left great toe is much better * Awaiting placement. - Plan Plan:: Bilateral cellulitis/Stasis Dermatitis, resolved Dependant edema Small hematoma/abscess on right ramos, resolved Leukocytosis, resolved Hypoxemia, resolved S/P Right ramos I&D Gout -Completed doxycycline -Completed Keflex -Monitor leg inflammation -Decrease oral Lasix to 40 mg daily at 0600 and 20mg daily at 1400 with spironolactone 100 mg daily -Discontinue cozaar due to worsening renal function and hypotension Failure to thrive Hypokalemia, resolved Hyponatremia Lactic Acidosis, likely resolved Medical non-compliance Hx/o hypomagnesemia Hypoalbuminemia, unchanged Relative Hypotension -Consult CM/SW -food services coordinator working on placement as patient is not safe to be discharged home alone. -Microfilm Mounter consult -Monitor electrolytes/magnesium and supplement as needed -On Midodrine 5 mg po TID -Fluid restriction -Asymptomatic -Start sodium tablets -Changing diuretics/ARB as above History of ETOH abuse Hepatic encephalopathy End-stage ETOH related cirrhosis Elevated INR Elevated Bilirubin Hx/o esophageal varices Thrombocytopenia Macrocytic Normochromic Anemia Elevated serum ammonia Hyperlactatemia Umbilical hernia -Decrease Lactulose to 15mg TID as patient is complaining of significant diarrhea -Continue Lasix as ordered -Continue spironolactone 100mg daily -Pharmacological DVT prophylaxis contraindicated -Continue folic acid, MV, thiamine supplementation -Low protein diet -Consult collection advisor -Due to end-stage cirrhosis we can expect BPs on the lower side -hyperlactatemia is likely 2/2 to end-stage liver disease and chronic ETOH abuse. -Procalcitonin was 0.05 ruling out sepsis. Depression Hallucinations -Haldol 3mg at bedtime -Discontinue Effexor -Schedule melatonin to support sleep Tobacco use disorder -Cessation counseling at discharge -Nicotine patches- decreased to 7mg Code status: DNR/DNI PCP: Dr. Mccollum DVT prophylaxis: Pharmacological prophylaxis contraindicated due to significant esophageal varices history, Elevated INR, thrombocytopenia. Mechanical prophylaxis contraindicated due to bilateral LE cellulitis, dependant LE edema. Disposition: Patient admitted due to cellulitis, electrolyte abnormalities, failure to thrive and need for placement. Social: Patient reportedly lives in an apartment. [facility] is following patient. Patient has history of leaving water running and forgetting to turn of burner. Per ED note apartment is very unkempt and there are concerns for patient safety. SW/CM consulted. Prognosis: Overall poor prognosis due to end-stage ETOH cirrhosis. LOS >96 HRS due to need for placement
[2020-08-01] MEDS: Furosemide 20 MG Tab PO SCH (14:49)
[2020-08-01] MEDS: Haloperidol 1 MG Tab PO SCH (21:05)
[2020-08-01] MEDS: Famotidine 40 MG/5 ML Bottle PO SCH (21:06)
[2020-08-01] MEDS: Melatonin 3 MG Tab PO SCH (21:06)
[2020-08-02] MEDS: Furosemide 40 MG Tab PO SCH (06:15)
[2020-08-02] MEDS: Midodrine 5 MG Tab PO SCH ×3 (06:15→17:20)
[2020-08-02] MEDS: oxyCODONE 5 MG Tab PO PRN ×2 (06:52→20:22)
[2020-08-02] MEDS: Thiamine 100 MG Tab PO SCH (09:05)
[2020-08-02] MEDS: Folic Acid 1 MG Tab PO SCH (09:05)
[2020-08-02] MEDS: Sodium Chloride/Potassium Chloride Tab PO SCH ×2 (09:05→20:21)
[2020-08-02] MEDS: Multivitamins,Therapeutic Tab PO SCH (09:05)
[2020-08-02] MEDS: Spironolactone 100 MG Tab PO SCH (09:05)
[2020-08-02] MEDS: Lactulose Soln 10 GM/15 ML 30 ML UD Cup PO SCH ×3 (09:06→20:18)
[2020-08-02] MEDS: Nicotine 7 MG/24 Hr Patch TRDERM SCH (09:07)
[2020-08-02] MEDS: Magnesium Oxide 400 MG Tab PO SCH (11:59)
--- NOTE | 2020-08-02 12:35 | PCM.PN ---
- General Info Date of Service: 08/02/20 Admission Dx/Problem (Free Text): Admission Diagnosis/Problem Admission Diagnosis/Problem Cellulitis Subjective Update: Patient is without any specific complaints. He is a little more tired today. Labs are stable with no worsening, nor no improvement in renal function. Functional Status: Reports: Pain Controlled - Review of Systems General: Reports: Fatigue HEENT: Reports: No Symptoms Pulmonary: Reports: No Symptoms Cardiovascular: Reports: No Symptoms Gastrointestinal: Reports: No Symptoms Musculoskeletal: Reports: No Symptoms Neurological: Reports: No Symptoms Psychiatric: Reports: No Symptoms - Patient Data Vitals - Most Recent: Last Vital Signs Temp 96.4 F L 08/02/20 03:47 Pulse 75 08/02/20 03:47 Resp 16 08/02/20 03:47 BP 95/48 L 08/02/20 03:47 Pulse Ox 93 L 08/02/20 10:00 Weight - Most Recent: 195 lb I&O - Last 24 Hours: Intake & Output 08/01/20 08/02/20 08/02/20 22:59 06:59 14:59 Intake Total 460 150 100 Output Total 150 Balance 310 150 100 Lab Results Last 24 Hours: Laboratory Results - last 24 hr 08/02/20 08/02/20 08/02/20 Range/Units 07:20 07:20 07:48 WBC 4.46 (4.23-9.07) K/mm3 RBC 3.03 L (4.63-6.08) M/mm3 Hgb 10.4 L (13.7-17.5) gm/dl Hct 30.4 L (40.1-51.0) % MCV 100.3 H (79.0-92.2) fl MCH 34.3 H (25.7-32.2) pg MCHC 34.2 (32.2-35.5) g/dl RDW Std Deviation 73.4 H (35.1-43.9) fL Plt Count 76 L (163-337) K/mm3 MPV 10.8 (9.4-12.3) fl Neut % (Auto) 54.8 (34.0-67.9) % Lymph % (Auto) 26.5 (21.8-53.1) % [place] % (Auto) 15.9 H (5.3-12.2) % Eos % (Auto) 2.2 (0.8-7.0) Baso % (Auto) 0.4 (0.1-1.2) % Neut # (Auto) 2.44 (1.78-5.38) K/mm3 Lymph # (Auto) 1.18 L (1.32-3.57) K/mm3 [place] # (Auto) 0.71 (0.30-0.82) K/mm3 Eos # (Auto) 0.10 (0.04-0.54) K/mm3 Baso # (Auto) 0.02 (0.01-0.08) K/mm3 Manual Slide Review Abnormal smear Puncture Site ABG pH (7.35-7.45) ABG pCO2 (35.0-45.0) mmHg ABG pO2 (80.0-100.0) mmHg ABG HCO3 (22.0-26.0) meq/L ABG O2 Saturation (96.0-97.0) % ABG Base Excess (-2-2.0) Minh Test A-a Gradient mmHg O2 Delivery Device FiO2 (21.00-100.00) % Sodium 128 L (136-145) mEq/L Potassium 4.4 (3.5-5.1) mEq/L Chloride 95 L (98-107) mEq/L Carbon Dioxide 20 L (21-32) mEq/L Anion Gap 17.4 H (5-15) BUN 42 H (7-18) mg/dL Creatinine 2.3 H (0.7-1.3) mg/dL Est Cr Clr Drug Dosing 30.98 mL/min Estimated GFR (MDRD) 29 (>60) mL/min BUN/Creatinine Ratio 18.3 H (14-18) Glucose 87 (80-115) mg/dL Calcium 8.6 (8.5-10.1) mg/dL Magnesium 2.7 H (1.8-2.4) mg/dl Total Bilirubin 7.9 H (0.2-1.0) mg/dL AST 70 H (15-37) U/L ALT 77 H (16-63) U/L Alkaline Phosphatase 81 (46-116) U/L Total Protein 6.0 L (6.4-8.2) g/dl Albumin 2.0 L (3.4-5.0) g/dl Globulin 4.0 gm/dL Albumin/Globulin Ratio 0.5 L (1-2) Vitamin D 25-Hydroxy 39.0 (30.0-100.0) ng/ml 08/02/20 Range/Units 10:17 WBC (4.23-9.07) K/mm3 RBC (4.63-6.08) M/mm3 Hgb (13.7-17.5) gm/dl Hct (40.1-51.0) % MCV (79.0-92.2) fl MCH (25.7-32.2) pg MCHC (32.2-35.5) g/dl RDW Std Deviation (35.1-43.9) fL Plt Count (163-337) K/mm3 MPV (9.4-12.3) fl Neut % (Auto) (34.0-67.9) % Lymph % (Auto) (21.8-53.1) % [place] % (Auto) (5.3-12.2) % Eos % (Auto) (0.8-7.0) Baso % (Auto) (0.1-1.2) % Neut # (Auto) (1.78-5.38) K/mm3 Lymph # (Auto) (1.32-3.57) K/mm3 [place] # (Auto) (0.30-0.82) K/mm3 Eos # (Auto) (0.04-0.54) K/mm3 Baso # (Auto) (0.01-0.08) K/mm3 Manual Slide Review Puncture Site Lt radial ABG pH 7.44 (7.35-7.45) ABG pCO2 28.9 L (35.0-45.0) mmHg ABG pO2 75.0 L (80.0-100.0) mmHg ABG HCO3 19.5 L (22.0-26.0) meq/L ABG O2 Saturation 93.0 L (96.0-97.0) % ABG Base Excess -3.5 L (-2-2.0) Minh Test Positive A-a Gradient 39 mmHg O2 Delivery Device Room air FiO2 21.00 (21.00-100.00) % Sodium (136-145) mEq/L Potassium (3.5-5.1) mEq/L Chloride (98-107) mEq/L Carbon Dioxide (21-32) mEq/L Anion Gap (5-15) BUN (7-18) mg/dL Creatinine (0.7-1.3) mg/dL Est Cr Clr Drug Dosing mL/min Estimated GFR (MDRD) (>60) mL/min BUN/Creatinine Ratio (14-18) Glucose (80-115) mg/dL Calcium (8.5-10.1) mg/dL Magnesium (1.8-2.4) mg/dl Total Bilirubin (0.2-1.0) mg/dL AST (15-37) U/L ALT (16-63) U/L Alkaline Phosphatase (46-116) U/L Total Protein (6.4-8.2) g/dl Albumin (3.4-5.0) g/dl Globulin gm/dL Albumin/Globulin Ratio (1-2) Vitamin D 25-Hydroxy (30.0-100.0) ng/ml Med Orders - Current: Current Medications Acetaminophen (Tylenol) 650 mg PO Q4H PRN PRN Reason: Pain/Fever Last Admin: 07/27/20 14:13 Dose: 650 mg Documented by: Famotidine (Pepcid) 40 mg PO BEDTIME [facility] Last Admin: 08/01/20 21:06 Dose: 5 ml Documented by: Folic Acid (Folic Acid) 1 mg PO DAILY [facility] Last Admin: 08/02/20 09:05 Dose: 1 mg Documented by: Furosemide (Lasix) 40 mg PO DAILY@0600 [facility] Last Admin: 08/02/20 06:15 Dose: 40 mg Documented by: Furosemide (Lasix) 20 mg PO DAILY@1400 [facility] Last Admin: 08/01/20 14:49 Dose: 20 mg Documented by: Haloperidol (Haldol) 3 mg PO BEDTIME [facility] Last Admin: 08/01/20 21:05 Dose: 3 mg Documented by: Lactulose (Cephulac) 15 gm PO TID [facility] Last Admin: 08/02/20 09:06 Dose: 15 gm Documented by: Magnesium Oxide (Magnesium Oxide) 800 mg PO 1100 [facility] Last Admin: 08/02/20 11:59 Dose: 800 mg Documented by: Melatonin (Melatonin) 3 mg PO BEDTIME [facility] Last Admin: 08/01/20 21:06 Dose: 3 mg Documented by: Midodrine (Midodrine) 5 mg PO TIDAC [facility] Last Admin: 08/02/20 11:59 Dose: 5 mg Documented by: Miscellaneous Information (Remove Patch) 0 ea TRDERM Q24H [facility] Last Admin: 08/02/20 09:50 Dose: 1 ea Documented by: Multivitamins (Thera) 1 each PO DAILY [facility] Last Admin: 08/02/20 09:05 Dose: 1 each Documented by: Nicotine (Habitrol) 7 mg TRDERM DAILY [facility] Last Admin: 08/02/20 09:07 Dose: 7 mg Documented by: Ondansetron HCl (Zofran Odt) 4 mg PO Q4H PRN PRN Reason: Nausea/Vomiting Last Admin: 07/29/20 22:22 Dose: 4 mg Documented by: Oral Electrolytes (Thermotabs) 2 each PO BID [facility] Last Admin: 08/02/20 09:05 Dose: 2 each Documented by: Oxycodone HCl (Oxycodone) 5 mg PO Q6H PRN PRN Reason: Pain (moderate 4-6) Last Admin: 07/29/20 22:22 Dose: 5 mg Documented by: Oxycodone HCl (Oxycodone) 10 mg PO Q6H PRN PRN Reason: Pain (severe 7-10) Last Admin: 08/02/20 06:52 Dose: 10 mg Documented by: Spironolactone (Aldactone) 100 mg PO DAILY [facility] Last Admin: 08/02/20 09:05 Dose: 100 mg Documented by: Thiamine HCl (Vitamin B-1) 100 mg PO DAILY [facility] Last Admin: 08/02/20 09:05 Dose: 100 mg Documented by: Discontinued Medications Alprazolam (Xanax) 1 mg PO BEDTIME ONE Stop: 07/12/20 21:01 Last Admin: 07/12/20 21:24 Dose: 1 mg Documented by: Alprazolam (Xanax) 1 mg PO BEDTIME [facility] Cephalexin (Keflex) 500 mg PO Q8H [facility] Stop: 07/27/20 06:01 Last Admin: 07/27/20 06:47 Dose: 500 mg Documented by: Colchicine (Colcrys) 1.2 mg PO ONETIME ONE Stop: 07/30/20 09:13 Last Admin: 07/30/20 10:24 Dose: 1.2 mg Documented by: Colchicine (Colcrys) 0.6 mg PO ONETIME ONE Stop: 07/30/20 11:01 Last Admin: 07/30/20 10:25 Dose: 0.6 mg Documented by: Dexamethasone (Dexamethasone) 6 mg PO Q24H [facility] Stop: 07/27/20 16:01 Last Admin: 07/19/20 15:51 Dose: 6 mg Documented by: Doxycycline Hyclate (Vibramycin) 100 mg PO BID [facility] Last Admin: 07/25/20 08:40 Dose: 100 mg Documented by: Folic Acid (Folic Acid) 1 mg PO DAILY [facility] Furosemide (Lasix) 40 mg IVPUSH NOW ONE Stop: 07/12/20 19:17 Last Admin: 07/12/20 19:38 Dose: 40 mg Documented by: Furosemide (Lasix) 40 mg IVPUSH NOW ONE Stop: 07/13/20 09:15 Last Admin: 07/13/20 09:42 Dose: 40 mg Documented by: Furosemide (Lasix) 40 mg IVPUSH DAILY [facility] Furosemide (Lasix) 20 mg IVPUSH DAILY [facility] Last Admin: 07/14/20 10:10 Dose: 20 mg Documented by: Furosemide (Lasix) 40 mg IVPUSH DAILY [facility] Last Admin: 07/24/20 08:33 Dose: 40 mg Documented by: Furosemide (Lasix) 40 mg PO DAILY [facility] Last Admin: 07/26/20 09:55 Dose: 40 mg Documented by: Furosemide (Lasix) 40 mg PO BIDDIURETIC [facility] Last Admin: 07/30/20 06:28 Dose: 40 mg Documented by: Furosemide (Lasix) 20 mg IVPUSH NOW ONE Stop: 07/26/20 11:46 Last Admin: 07/26/20 11:45 Dose: 20 mg Documented by: Haloperidol (Haldol) 2 mg PO BEDTIME [facility] Last Admin: 07/30/20 21:02 Dose: 2 mg Documented by: Sodium Chloride (Normal Saline) 1,000 mls @ 125 mls/hr IV ASDIRECTED [facility] Last Admin: 07/12/20 17:03 Dose: 125 mls/hr Documented by: Vancomycin HCl 1.5 gm/ Sodium (Chloride) 500 mls @ 250 mls/hr IV ONETIME ONE Stop: 07/12/20 19:21 Last Admin: 07/12/20 20:07 Dose: 250 mls/hr Documented by: Vancomycin HCl 1 gm/ Sodium (Chloride) 250 mls @ 250 mls/hr IV Q12H [facility] Last Admin: 07/14/20 23:00 Dose: 250 mls/hr Documented by: Ceftriaxone Sodium 2 gm/ (Sodium Chloride) 100 mls @ 200 mls/hr IV Q24H [facility] Last Admin: 07/14/20 14:38 Dose: 200 mls/hr Documented by: Sodium Chloride (Normal Saline) 1,000 mls @ 100 mls/hr IV ASDIRECTED [facility] Stop: 07/15/20 00:59 Last Admin: 07/14/20 00:04 Dose: 100 mls/hr Documented by: Vancomycin HCl 1 gm/ Sodium (Chloride) 250 mls @ 250 mls/hr IV Q24H [facility] Stop: 07/21/20 23:00 Last Admin: 07/21/20 20:20 Dose: 250 mls/hr Documented by: Ceftriaxone Sodium 2 gm/ (Sodium Chloride) 100 mls @ 200 mls/hr IV Q24H [facility] Stop: 07/21/20 17:00 Last Admin: 07/21/20 15:10 Dose: 200 mls/hr Documented by: Sodium Chloride (Normal Saline) 100 mls @ 75 mls/hr IV ASDIRECTED [facility] Stop: 07/18/20 17:00 Azithromycin 500 mg/ Sodium (Chloride) 250 mls @ 250 mls/hr IV Q24H [facility] Last Admin: 07/20/20 15:19 Dose: 250 mls/hr Documented by: Remdesivir 200 mg/ Sodium (Chloride) 250 mls @ 250 mls/hr IV ONETIME ONE Stop: 07/18/20 17:29 Last Admin: 07/18/20 17:55 Dose: 250 mls/hr Documented by: Remdesivir 100 mg/ Sodium (Chloride) 100 mls @ 100 mls/hr IV Q24H [facility] Stop: 07/22/20 17:29 Last Admin: 07/19/20 17:14 Dose: 100 mls/hr Documented by: Albumin Human (Flexbumin 25%) 12.5 gm in 50 mls @ 100 mls/hr IV ONETIME ONE Stop: 07/30/20 10:04 Last Admin: 07/30/20 10:25 Dose: 100 mls/hr Documented by: Iopamidol (Isovue-370 (76%)) 100 ml IVPUSH ONETIME ONE Stop: 07/18/20 13:38 Last Admin: 07/18/20 16:43 Dose: Not Given Documented by: Lactulose (Cephulac) 20 gm PO TID [facility] Last Admin: 07/13/20 15:46 Dose: Not Given Documented by: Lactulose (Cephulac) 20 gm PO TID [facility] Last Admin: 07/15/20 10:21 Dose: 20 gm Documented by: Lactulose (Cephulac) 30 gm PO TID [facility] Last Admin: 07/30/20 08:33 Dose: 30 gm Documented by: Lidocaine/Epinephrine (Xylocaine 1% With Epinephrine 1:100,000) 20 ml INJECT ONETIME ONE Stop: 07/20/20 13:31 Last Admin: 07/20/20 14:59 Dose: Not Given Documented by: Losartan Potassium (Cozaar) 12.5 mg PO DAILY [facility] Last Admin: 07/31/20 08:52 Dose: Not Given Documented by: Magnesium Oxide (Magnesium Oxide) 400 mg PO BID [facility] Stop: 07/21/20 23:00 Last Admin: 07/21/20 20:19 Dose: 400 mg Documented by: Melatonin (Melatonin) 3 mg PO BEDTIME PRN PRN Reason: insomnia Last Admin: 07/25/20 22:03 Dose: 3 mg Documented by: Miscellaneous Information (Remove Patch) 0 ea TRDERM Q24H [facility] Last Admin: 07/31/20 14:26 Dose: 1 ea Documented by: Nicotine (Habitrol) 14 mg TRDERM Q24H [facility] Last Admin: 07/31/20 14:26 Dose: 14 mg Documented by: Non-Formulary Medication (Magnesium Oxide [Magnesium Oxide]) 400 mg PO DAILY [facility] Ondansetron HCl (Zofran) 4 mg IV Q6H PRN PRN Reason: Nausea/Vomiting Ondansetron HCl (Zofran) Confirm Administered Dose 4 mg .ROUTE .STK-MED ONE Stop: 07/28/20 11:03 Last Admin: 07/28/20 12:36 Dose: Not Given Documented by: Oxycodone HCl (Oxycodone) 5 - 10 mg PO Q6H PRN PRN Reason: Pain Potassium Chloride (Klor-Con M20) 40 meq PO TID [facility] Stop: 07/14/20 09:01 Last Admin: 07/14/20 10:09 Dose: 40 meq Documented by: Sodium Chloride (Saline Flush) 10 ml FLUSH ONETIME PRN PRN Reason: IV FLUSH Stop: 07/18/20 17:00 Spironolactone (Aldactone) 25 mg PO ONETIME ONE Stop: 07/12/20 19:18 Last Admin: 07/12/20 19:38 Dose: 25 mg Documented by: Spironolactone (Aldactone) 25 mg PO ONETIME ONE Stop: 07/13/20 09:16 Last Admin: 07/13/20 09:50 Dose: 25 mg Documented by: Spironolactone (Aldactone) 25 mg PO DAILY [facility] Spironolactone (Aldactone) 50 mg PO DAILY [facility] Last Admin: 07/15/20 10:20 Dose: 50 mg Documented by: Thiamine HCl (Vitamin B-1) 100 mg PO DAILY [facility] Vancomycin HCl (Pharmacy To Dose - Vancomycin) 1 dose .XX ASDIRECTED [facility] Stop: 07/21/20 23:00 Vancomycin HCl (Vancocin) Confirm Administered Dose 1 gm .ROUTE .STK-MED ONE Stop: 07/17/20 21:34 Last Admin: 07/17/20 23:07 Dose: Not Given Documented by: Venlafaxine HCl (Effexor) 37.5 mg PO BID [facility] Comments:: ABG: pH 7.44, PCO2 28.9, PO2 75, bicarb 19.5, on room air - Exam Quality Assessment: No: Supplemental Oxygen, Urine Catheter General: Alert, Oriented HEENT: Pupils Equal, Mucous Membr. Moist/[place] Neck: Supple Lungs: Clear to Auscultation, Normal Respiratory Effort Cardiovascular: Regular Rate, Regular Rhythm GI/Abdominal Exam: Normal Bowel Sounds, Soft, Non-Tender, No Organomegaly, No Distention, No Abnormal Bruit Extremities: Normal Inspection, Normal Range of Motion, Non-Tender, No Pedal Edema, Normal Capillary Refill Psy/Mental Status: Alert. No: Normal Affect (flat) Sepsis Event Note - Evaluation Sepsis Screening Result: No Definite Risk - Focused Exam Vital Signs: Vital Signs Temp Pulse Resp BP Pulse Ox 08/02/20 10:00 93 L 08/02/20 03:47 96.4 F L 75 16 95/48 L 93 L - Problem List & Annotations (1) Cirrhosis of liver with ascites SNOMED Code(s): 38428727 Code(s): K74.60 - UNSPECIFIED CIRRHOSIS OF LIVER; R18.8 - OTHER ASCITES Status: Acute Current Visit: No Qualifiers: Hepatic cirrhosis type: alcoholic cirrhosis Qualified Code(s): K70.31 - Alcoholic cirrhosis of liver with ascites (2) Esophageal varices SNOMED Code(s): 95687774 Code(s): I85.00 - ESOPHAGEAL VARICES WITHOUT BLEEDING Status: Acute Current Visit: No (3) Acute renal failure due to angiotensin converting enzyme (TONY) inhibitor SNOMED Code(s): 878909729 Code(s): N17.9 - ACUTE KIDNEY FAILURE, UNSPECIFIED; T46.4X5A - ADVERSE EFFECT OF [id number] INHIBITORS, INIT Status: Acute Current Visit: Yes (4) Abscess of right leg SNOMED Code(s): 600648283 Code(s): L02.415 - CUTANEOUS ABSCESS OF RIGHT LOWER LIMB Status: Acute Priority: Medium Current Visit: Yes Onset Date: ~07/19/20 (5) Bilateral lower leg cellulitis SNOMED Code(s): 501387971 Code(s): L03.116 - CELLULITIS OF LEFT LOWER LIMB; L03.115 - CELLULITIS OF RIGHT LOWER LIMB Status: Acute Priority: Low Current Visit: Yes Onset Date: ~07/19/20 (6) Failure to thrive SNOMED Code(s): 99736031 Code(s): LLB5812 - Status: Acute Priority: Medium Current Visit: Yes Onset Date: ~07/19/20 Qualifiers: Failure to thrive age range: in adult Qualified Code(s): R62.7 - Adult failure to thrive (7) Gout SNOMED Code(s): 26216967 Code(s): M10.9 - GOUT, UNSPECIFIED Status: Acute Priority: High Current Visit: Yes Qualifiers: Gout site: toe Gout etiology: unspecified cause Chronicity: acute Laterality: right Qualified Code(s): M10.9 - Gout, unspecified (8) Liver disease due to alcohol SNOMED Code(s): 18623907 Code(s): K70.9 - ALCOHOLIC LIVER DISEASE, UNSPECIFIED Status: Acute Priority: Medium Current Visit: Yes Onset Date: ~07/29/20 (9) Thrombocytopenia SNOMED Code(s): 662006306 Code(s): D69.6 - THROMBOCYTOPENIA, UNSPECIFIED Status: Chronic Priority: High Current Visit: Yes - Problem List Review Problem List Initiated/Reviewed/Updated: Yes - Assessment Assessment:: 07/13/2020 - Day of Admission -64 yo Male who presents to ED on 07/12/20 with confusion and bilateral cellulitis -History of hepatic encephalopathy, End stage liver disease, ETOH abuse, Tobacco use, Esophageal varices with banding, depression, dependant edema -Patient admits to ED provider that he has not been taking his medications because he forgets -Denies any ETOH use for past 2 months (ETOH in ED was 0.00) -Kept in ED overnight due to bed shortage statewide and us being on diversion -Started on Vancomycin in ED foe cellulitis -Given lactulose, spironolactone, lasix, IV fluids, Xanax, vancomycin in ED -No WBC in ED, although likely cannot mount immunologic defense due to alcoholic bone marrow suppression -Sepsis criteria: -Bilateral cellulitis, No tachycardia, tachypnea, WBC, or fever -Hypotension likely 2/2 end stage liver failure, Lactate >2 likely 2/2 chronic ETOH abuse, Bilirubin >2 chronically, Platelets <100 chronically, INR elevated 2/2 End stage liver disease -Does not meet criteria -Per ED provider social work states patient apartment was very unkempt -Social work reports patient has been known to leave water running and burners on in apartment. Patient is being evicted. 07/14/2020 * Small improvement in cellulitis * Procalcitonin was negative at 0.05 * White count 6.1 and CRP 2.1 * Lactic acid is chronically elevated due to liver disease at 2.6. Total bilirubin elevated at 7.8 and direct bilirubin 3.8 * Oxygen requirement has increased to 4 L/min * Sodium chronically low at 131 07/15/2020 * Continued improvement in cellulitis * WBC remains WNL at 7.19 with CRP of 2.2 * Oxygen requirement has decreased to 2L * Blood cultures negative thus far * Sodium improved to 133 * Potassium 4.3 * Dr. Powell saw patient and recommends withholding patients effexor and monit oring * Patient remains quite confused 07/16/20 * Continue current treatment * Routine AM labs with Ammonia * Midodrine 5 mg po TIDAC * Remains confused with hallucinations (seeing squirrels inside his room) * May consider anti-psychotic medications if needed * Need Tele-psych consult 07/17/20 * Continue current treatment: Rocephin and Vancomycin * Routine AM labs * Offered I&D but patient refused * Wound culture on right ramos * Remains confused with hallucinations (seeing squirrels inside his room) * May consider anti-psychotic medications if needed * Need Tele-psych follow up * LOS > 96 HRS due to need for placement 07/18/20 * WBC improved to 10.41 from 11.68 * CRP 9.1 from 5.7 * Creatinine 1.4 with GFR of 51 * Requiring 6L O2 via NC * Wound culture showing no growth * MELD-Na score on admission calculated to be 29 points - 27-32% estimated 90- day mortality * D-Dimer 7.29 * BNP 1009 * INR 2.33 * CTA shows pleural effusions and ground glass opacities concerning for viral/atypical pneumonia\ * Discussed plan with Dr. Castro - will start covid-19 treatment protocol 07/19/2020 * WBC 8.31 * CRP Up to 11.4 * Ferritin 513 * LDH 475 * Procalcitonin 0.43 * Creatinine 1.5, GFR 47 * INR 2.24 * On high flow oxygen * Thoracentesis performed today by Dr. Shipley with just over 1L clear straw colored output 07/20/2020 * Echo results show: * 1. LVEF, by visual estimation, is 65-70% * 2. Hyperdynamic left ventricular systolic function * 3. Verbally normal right ventricular systolic function and size, not well visualized. * 4. The aortic valve is not well visualized. * 5. Trace mitral valve regurgitation * 6. Trace tricuspid valve regurgitation. * 7. The right ventricular systolic pressure is unable to be determined. * 8. There is a pleural effusion * WBC 9.58 * CRP 10.2 * Sodium 130 and stable * Creatinine 1.5 and GFR 47 and stable * Awaiting thoracentesis culture * VRP negative * Covid-19 negative (4th time) * Discontinued COVID-19 treatment * Discontinue isolation precautions once off of high flow 07/21/2020 * WBC 10.17 * CRP 8.4 * Sodium 130 and stable * Creatinine 1.3 and GFR 55 * S/P I&D of right ramos with Dr. Cazares on 07/20/2020 * Purulent bloody drainage * No cultures sent due to patient being on abx for several days * O2 down to 4L * Thoracentesis cultures show no growth * Continue current treatment plan * Legs continue to improve 07/22/2020 * No labs done today * Patient is stable without any complaints * He has been weaned off of oxygen * Cultures continue to be negative 07/23/2020 * Patient is back really 1 on 1 to 2L nasal cannula given oral tolerated * Otherwise he is without complaints. 07/24/2020 * Currently on 1 L nasal cannula * White count 9.6 with moderate toxic granulation, hemoglobin * No complaints. 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 04/17 on MOCA 07/26/2020 * Remains off of oxygen * Worsening pedal edema - weight up 14lbs on admission * Increase lasix dosing * No labs obtained today due to patient stability * Discontinue abx - completed therapy * SW continuing to work toward discharge plan 07/27/20 * Remains sable and off of oxygen * Continue increased lasix dosing * Labs remain grossly stable * Will hold off checking labs tomorrow and consider re-check * Legs edematous but overall look good * SW continues to work on discharge plan 07/28/20 * Generalized edema still noted. Continue Lasix. * No labs drawn today. * Dressing intact to right lower extremity. * Complains of pain to left great toe and fifth digit. Left great toe is reddened but there are no open areas and no drainage noted. Patient reports that he stubbed that toe, however I cannot assess the certainty of this due to the patient's cognition and lack of orientation. 07/29/2020 * Sodium down to 126 today * Fluid restriction started * Continued dressing on right lower extremity * Creatinine 1.4 and GFR 51 (stable) * Re-check BMP tomorrow * Given continued left great toe pain will check uric acid tomorrow * Remains confused * SW working on guardianship/placement. 07/30/2020 * Sodium remains 126 * Chloride 96 * Creatinine 1.3 and GFR 55 * Start low dose ARB at recommendation of Dr. Gomez * Will decrease PM lasix dose * Uric Acid 7.4 and patient complaining of toe pain * Will give colchicine 1.2mg followed by 0.6 mg * Recheck AM labs * Decreased lactulose dosing at patient request after discussion with Dr. Gomez * Remains slightly confused * Awaiting placement 07/31/2020 * Sodium improved to 127 * Potassium 3.9 * Chloride 94 * Creatine now 1.9 and GFR 36 * Kidney function likely decreased 2/2 ARB and colchicine * Minimal PO intake * Will stop ARB * Re-check AM labs including ammonia * Remains slightly confused but does remember conversations with nurse group sales manager; states he feels like he is confused * Continued hallucinations * Will increase haldol dosing to 3mg at bedtime * Schedule melatonin * Dietary to continue to follow * Reports poor sleep * Thermotabs started 08/01/20 * Sodium is up to 128 today. * Creatinine 2.3 and GFR 29. * ARB has been discontinued. * Known new hallucinations reported * States discomfort to left great toe is much better * Awaiting placement. 08/02/2020 * Sodium, creatinine, and GFR are the same as yesterday, 128, 2.3, and 29, respectively. * Blood pressure has improved. * Anion gap has slightly increased to 17.4 and bicarb decreased to 20. * ABG shows respiratory alkalosis with metabolic compensation. Unknown reason at this time. * Appetite is minimal, but this appears to be chronic. * Thrombocytopenia is worse today at 76,000. - Plan Plan:: Bilateral cellulitis/Stasis Dermatitis, resolved Dependant edema Small hematoma/abscess on right ramos, resolved Leukocytosis, resolved Hypoxemia, resolved S/P Right ramos I&D Gout -Completed doxycycline -Completed Keflex -Monitor leg inflammation -Decrease oral Lasix to 40 mg daily at 0600 and 20mg daily at 1400 with spironolactone 100 mg daily -Discontinue cozaar due to worsening renal function and hypotension -Patient likely has reduced intrarenal perfusion pressure and the addition of Cozaar caused worsening of the pressure. His renal function should return to baseline with the improving perfusion pressure. Failure to thrive Hypokalemia, resolved Hyponatremia Lactic Acidosis, likely resolved Medical non-compliance Hx/o hypomagnesemia Hypoalbuminemia, unchanged Relative Hypotension -Consult CM/SW -telephone services sales representative working on placement as patient is not safe to be discharged home alone. -Letter Of Credit Document Examiner consult -Monitor electrolytes/magnesium and supplement as needed -On Midodrine 5 mg po TID -Fluid restriction -Asymptomatic -Start sodium tablets -Changing diuretics/ARB as above History of ETOH abuse Hepatic encephalopathy End-stage ETOH related cirrhosis Elevated INR Elevated Bilirubin Hx/o esophageal varices Thrombocytopenia Macrocytic Normochromic Anemia Elevated serum ammonia Hyperlactatemia Umbilical hernia -Decrease Lactulose to 15mg TID as patient is complaining of significant diarrhea -Continue Lasix 40 mg in the morning and 20 mg in the afternoon -Continue spironolactone 100mg daily -Pharmacological DVT prophylaxis contraindicated -Continue folic acid, MV, thiamine supplementation -Low protein diet -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 Depression Hallucinations -Haldol 3mg at bedtime -Discontinue Effexor -Schedule melatonin to support sleep Tobacco use disorder -Cessation counseling at discharge -Nicotine patches- decreased to 7mg Code status: DNR/DNI PCP: Dr. Mccollum DVT prophylaxis: Pharmacological prophylaxis contraindicated due to significant esophageal varices history, Elevated INR, thrombocytopenia. Mechanical prophylaxis contraindicated due to bilateral LE cellulitis, dependant LE edema. Disposition: Patient admitted due to cellulitis, electrolyte abnormalities, failure to thrive and need for placement. Social: Patient reportedly lives in an apartment. [facility] Machine Operator is following patient. Patient has history of leaving water running and forgetting to turn of burner. Per ED note apartment is very unkempt and there are concerns for patient safety. SW/CM consulted. Prognosis: Overall poor prognosis due to end-stage ETOH cirrhosis. LOS >96 HRS due to need for placement
[2020-08-02] MEDS: Furosemide 20 MG Tab PO SCH (14:13)
[2020-08-02] MEDS: Melatonin 3 MG Tab PO SCH (20:20)
[2020-08-02] MEDS: Haloperidol 1 MG Tab PO SCH (20:20)
[2020-08-02] MEDS: Famotidine 40 MG/5 ML Bottle PO SCH (20:21)
[2020-08-03] MEDS: oxyCODONE 5 MG Tab PO PRN (02:30)
[2020-08-03] MEDS: Midodrine 5 MG Tab PO SCH ×3 (06:13→17:12)
[2020-08-03] MEDS: Furosemide 40 MG Tab PO SCH (06:13)
--- NOTE | 2020-08-03 09:22 | PCM.PN ---
- General Info Date of Service: 08/03/20 Admission Dx/Problem (Free Text): Admission Diagnosis/Problem Admission Diagnosis/Problem Cellulitis Subjective Update: Patient has no significant change. He does complain of right little toe pain today. Yesterday he had right great toe pain. - Review of Systems General: Reports: No Symptoms HEENT: Reports: No Symptoms Pulmonary: Reports: No Symptoms Cardiovascular: Reports: No Symptoms Musculoskeletal: Reports: Foot Pain (Toe pain) Psychiatric: Reports: No Symptoms - Patient Data Vitals - Most Recent: Last Vital Signs Temp 96.4 F L 08/02/20 20:14 Pulse 68 08/03/20 02:32 Resp 17 08/03/20 02:32 BP 96/55 L 08/03/20 02:32 Pulse Ox 98 08/03/20 02:32 Weight - Most Recent: 194 lb I&O - Last 24 Hours: Intake & Output 08/02/20 08/03/20 08/03/20 22:59 06:59 14:59 Intake Total 320 200 Output Total 325 300 Balance -5 -100 Lab Results Last 24 Hours: Laboratory Results - last 24 hr 08/02/20 08/02/20 08/02/20 Range/Units 07:20 07:48 10:17 WBC (4.23-9.07) K/mm3 RBC (4.63-6.08) M/mm3 Hgb (13.7-17.5) gm/dl Hct (40.1-51.0) % MCV (79.0-92.2) fl MCH (25.7-32.2) pg MCHC (32.2-35.5) g/dl RDW Std Deviation (35.1-43.9) fL Plt Count (163-337) K/mm3 MPV (9.4-12.3) fl Neut % (Auto) (34.0-67.9) % Lymph % (Auto) (21.8-53.1) % [place] % (Auto) (5.3-12.2) % Eos % (Auto) (0.8-7.0) Baso % (Auto) (0.1-1.2) % Neut # (Auto) (1.78-5.38) K/mm3 Lymph # (Auto) (1.32-3.57) K/mm3 [place] # (Auto) (0.30-0.82) K/mm3 Eos # (Auto) (0.04-0.54) K/mm3 Baso # (Auto) (0.01-0.08) K/mm3 Manual Slide Review Abnormal smear Puncture Site Lt radial ABG pH 7.44 (7.35-7.45) ABG pCO2 28.9 L (35.0-45.0) mmHg ABG pO2 75.0 L (80.0-100.0) mmHg ABG HCO3 19.5 L (22.0-26.0) meq/L ABG O2 Saturation 93.0 L (96.0-97.0) % ABG Base Excess -3.5 L (-2-2.0) Minh Test Positive A-a Gradient 39 mmHg O2 Delivery Device Room air FiO2 21.00 (21.00-100.00) % Sodium (136-145) mEq/L Potassium (3.5-5.1) mEq/L Chloride (98-107) mEq/L Carbon Dioxide (21-32) mEq/L Anion Gap (5-15) BUN (7-18) mg/dL Creatinine (0.7-1.3) mg/dL Est Cr Clr Drug Dosing mL/min Estimated GFR (MDRD) (>60) mL/min BUN/Creatinine Ratio (14-18) Glucose (80-115) mg/dL Calcium (8.5-10.1) mg/dL Phosphorus (2.6-4.7) mg/dL Magnesium (1.8-2.4) mg/dl Total Bilirubin (0.2-1.0) mg/dL AST (15-37) U/L ALT (16-63) U/L Alkaline Phosphatase (46-116) U/L Total Protein (6.4-8.2) g/dl Albumin (3.4-5.0) g/dl Globulin gm/dL Albumin/Globulin Ratio (1-2) Vitamin D 25-Hydroxy 39.0 (30.0-100.0) ng/ml 08/03/20 08/03/20 Range/Units 07:19 07:19 WBC 3.56 L (4.23-9.07) K/mm3 RBC 2.64 L (4.63-6.08) M/mm3 Hgb 9.0 L (13.7-17.5) gm/dl Hct 26.5 L (40.1-51.0) % MCV 100.4 H (79.0-92.2) fl MCH 34.1 H (25.7-32.2) pg MCHC 34.0 (32.2-35.5) g/dl RDW Std Deviation 72.7 H (35.1-43.9) fL Plt Count 68 L (163-337) K/mm3 MPV 10.1 (9.4-12.3) fl Neut % (Auto) 51.6 (34.0-67.9) % Lymph % (Auto) 25.3 (21.8-53.1) % [place] % (Auto) 19.1 H (5.3-12.2) % Eos % (Auto) 3.4 (0.8-7.0) Baso % (Auto) 0.3 (0.1-1.2) % Neut # (Auto) 1.84 (1.78-5.38) K/mm3 Lymph # (Auto) 0.90 L (1.32-3.57) K/mm3 [place] # (Auto) 0.68 (0.30-0.82) K/mm3 Eos # (Auto) 0.12 (0.04-0.54) K/mm3 Baso # (Auto) 0.01 (0.01-0.08) K/mm3 Manual Slide Review Abnormal smear Puncture Site ABG pH (7.35-7.45) ABG pCO2 (35.0-45.0) mmHg ABG pO2 (80.0-100.0) mmHg ABG HCO3 (22.0-26.0) meq/L ABG O2 Saturation (96.0-97.0) % ABG Base Excess (-2-2.0) Minh Test A-a Gradient mmHg O2 Delivery Device FiO2 (21.00-100.00) % Sodium 129 L (136-145) mEq/L Potassium 4.1 (3.5-5.1) mEq/L Chloride 97 L (98-107) mEq/L Carbon Dioxide 23 (21-32) mEq/L Anion Gap 13.1 (5-15) BUN 44 H (7-18) mg/dL Creatinine 2.1 H (0.7-1.3) mg/dL Est Cr Clr Drug Dosing 33.93 mL/min Estimated GFR (MDRD) 32 (>60) mL/min BUN/Creatinine Ratio 21.0 H (14-18) Glucose 97 (80-115) mg/dL Calcium 8.6 (8.5-10.1) mg/dL Phosphorus 4.7 (2.6-4.7) mg/dL Magnesium 2.8 H (1.8-2.4) mg/dl Total Bilirubin 7.3 H (0.2-1.0) mg/dL AST 63 H (15-37) U/L ALT 76 H (16-63) U/L Alkaline Phosphatase 77 (46-116) U/L Total Protein 5.6 L (6.4-8.2) g/dl Albumin 1.9 L (3.4-5.0) g/dl Globulin 3.7 gm/dL Albumin/Globulin Ratio 0.5 L (1-2) Vitamin D 25-Hydroxy (30.0-100.0) ng/ml Med Orders - Current: Current Medications Acetaminophen (Tylenol) 650 mg PO Q4H PRN PRN Reason: Pain/Fever Last Admin: 07/27/20 14:13 Dose: 650 mg Documented by: Famotidine (Pepcid) 40 mg PO BEDTIME [facility] Last Admin: 08/02/20 20:21 Dose: 5 ml Documented by: Folic Acid (Folic Acid) 1 mg PO DAILY [facility] Last Admin: 08/02/20 09:05 Dose: 1 mg Documented by: Furosemide (Lasix) 40 mg PO DAILY@0600 [facility] Last Admin: 08/03/20 06:13 Dose: 40 mg Documented by: Furosemide (Lasix) 20 mg PO DAILY@1400 [facility] Last Admin: 08/02/20 14:13 Dose: 20 mg Documented by: Haloperidol (Haldol) 3 mg PO BEDTIME [facility] Last Admin: 08/02/20 20:20 Dose: 3 mg Documented by: Lactulose (Cephulac) 15 gm PO TID [facility] Last Admin: 08/02/20 20:18 Dose: 15 gm Documented by: Melatonin (Melatonin) 3 mg PO BEDTIME [facility] Last Admin: 08/02/20 20:20 Dose: 3 mg Documented by: Midodrine (Midodrine) 5 mg PO TIDAC [facility] Last Admin: 08/03/20 06:13 Dose: 5 mg Documented by: Miscellaneous Information (Remove Patch) 0 ea TRDERM Q24H [facility] Last Admin: 08/02/20 09:50 Dose: 1 ea Documented by: Multivitamins (Thera) 1 each PO DAILY [facility] Last Admin: 08/02/20 09:05 Dose: 1 each Documented by: Nicotine (Habitrol) 7 mg TRDERM DAILY [facility] Last Admin: 08/02/20 09:07 Dose: 7 mg Documented by: Ondansetron HCl (Zofran Odt) 4 mg PO Q4H PRN PRN Reason: Nausea/Vomiting Last Admin: 07/29/20 22:22 Dose: 4 mg Documented by: Oral Electrolytes (Thermotabs) 2 each PO BID [facility] Last Admin: 08/02/20 20:21 Dose: 2 each Documented by: Oxycodone HCl (Oxycodone) 5 mg PO Q6H PRN PRN Reason: Pain (moderate 4-6) Last Admin: 08/03/20 02:30 Dose: 5 mg Documented by: Oxycodone HCl (Oxycodone) 10 mg PO Q6H PRN PRN Reason: Pain (severe 7-10) Last Admin: 08/02/20 06:52 Dose: 10 mg Documented by: Spironolactone (Aldactone) 100 mg PO DAILY [facility] Last Admin: 08/02/20 09:05 Dose: 100 mg Documented by: Thiamine HCl (Vitamin B-1) 100 mg PO DAILY [facility] Last Admin: 08/02/20 09:05 Dose: 100 mg Documented by: Discontinued Medications Alprazolam (Xanax) 1 mg PO BEDTIME ONE Stop: 07/12/20 21:01 Last Admin: 07/12/20 21:24 Dose: 1 mg Documented by: Alprazolam (Xanax) 1 mg PO BEDTIME [facility] Cephalexin (Keflex) 500 mg PO Q8H [facility] Stop: 07/27/20 06:01 Last Admin: 07/27/20 06:47 Dose: 500 mg Documented by: Colchicine (Colcrys) 1.2 mg PO ONETIME ONE Stop: 07/30/20 09:13 Last Admin: 07/30/20 10:24 Dose: 1.2 mg Documented by: Colchicine (Colcrys) 0.6 mg PO ONETIME ONE Stop: 07/30/20 11:01 Last Admin: 07/30/20 10:25 Dose: 0.6 mg Documented by: Dexamethasone (Dexamethasone) 6 mg PO Q24H MELISSA Stop: 07/27/20 16:01 Last Admin: 07/19/20 15:51 Dose: 6 mg Documented by: Doxycycline Hyclate (Vibramycin) 100 mg PO BID [facility] Last Admin: 07/25/20 08:40 Dose: 100 mg Documented by: Folic Acid (Folic Acid) 1 mg PO DAILY [facility] Furosemide (Lasix) 40 mg IVPUSH NOW ONE Stop: 07/12/20 19:17 Last Admin: 07/12/20 19:38 Dose: 40 mg Documented by: Furosemide (Lasix) 40 mg IVPUSH NOW ONE Stop: 07/13/20 09:15 Last Admin: 07/13/20 09:42 Dose: 40 mg Documented by: Furosemide (Lasix) 40 mg IVPUSH DAILY [facility] Furosemide (Lasix) 20 mg IVPUSH DAILY [facility] Last Admin: 07/14/20 10:10 Dose: 20 mg Documented by: Furosemide (Lasix) 40 mg IVPUSH DAILY [facility] Last Admin: 07/24/20 08:33 Dose: 40 mg Documented by: Furosemide (Lasix) 40 mg PO DAILY [facility] Last Admin: 07/26/20 09:55 Dose: 40 mg Documented by: Furosemide (Lasix) 40 mg PO BIDDIURETIC [facility] Last Admin: 07/30/20 06:28 Dose: 40 mg Documented by: Furosemide (Lasix) 20 mg IVPUSH NOW ONE Stop: 07/26/20 11:46 Last Admin: 07/26/20 11:45 Dose: 20 mg Documented by: Haloperidol (Haldol) 2 mg PO BEDTIME [facility] Last Admin: 07/30/20 21:02 Dose: 2 mg Documented by: Sodium Chloride (Normal Saline) 1,000 mls @ 125 mls/hr IV ASDIRECTED [facility] Last Admin: 07/12/20 17:03 Dose: 125 mls/hr Documented by: Vancomycin HCl 1.5 gm/ Sodium (Chloride) 500 mls @ 250 mls/hr IV ONETIME ONE Stop: 07/12/20 19:21 Last Admin: 07/12/20 20:07 Dose: 250 mls/hr Documented by: Vancomycin HCl 1 gm/ Sodium (Chloride) 250 mls @ 250 mls/hr IV Q12H [facility] Last Admin: 07/14/20 23:00 Dose: 250 mls/hr Documented by: Ceftriaxone Sodium 2 gm/ (Sodium Chloride) 100 mls @ 200 mls/hr IV Q24H [facility] Last Admin: 07/14/20 14:38 Dose: 200 mls/hr Documented by: Sodium Chloride (Normal Saline) 1,000 mls @ 100 mls/hr IV ASDIRECTED [facility] Stop: 07/15/20 00:59 Last Admin: 07/14/20 00:04 Dose: 100 mls/hr Documented by: Vancomycin HCl 1 gm/ Sodium (Chloride) 250 mls @ 250 mls/hr IV Q24H [facility] Stop: 07/21/20 23:00 Last Admin: 07/21/20 20:20 Dose: 250 mls/hr Documented by: Ceftriaxone Sodium 2 gm/ (Sodium Chloride) 100 mls @ 200 mls/hr IV Q24H [facility] Stop: 07/21/20 17:00 Last Admin: 07/21/20 15:10 Dose: 200 mls/hr Documented by: Sodium Chloride (Normal Saline) 100 mls @ 75 mls/hr IV ASDIRECTED [facility] Stop: 07/18/20 17:00 Azithromycin 500 mg/ Sodium (Chloride) 250 mls @ 250 mls/hr IV Q24H [facility] Last Admin: 07/20/20 15:19 Dose: 250 mls/hr Documented by: Remdesivir 200 mg/ Sodium (Chloride) 250 mls @ 250 mls/hr IV ONETIME ONE Stop: 07/18/20 17:29 Last Admin: 07/18/20 17:55 Dose: 250 mls/hr Documented by: Remdesivir 100 mg/ Sodium (Chloride) 100 mls @ 100 mls/hr IV Q24H [facility] Stop: 07/22/20 17:29 Last Admin: 07/19/20 17:14 Dose: 100 mls/hr Documented by: Albumin Human (Flexbumin 25%) 12.5 gm in 50 mls @ 100 mls/hr IV ONETIME ONE Stop: 07/30/20 10:04 Last Admin: 07/30/20 10:25 Dose: 100 mls/hr Documented by: Iopamidol (Isovue-370 (76%)) 100 ml IVPUSH ONETIME ONE Stop: 07/18/20 13:38 Last Admin: 07/18/20 16:43 Dose: Not Given Documented by: Lactulose (Cephulac) 20 gm PO TID [facility] Last Admin: 07/13/20 15:46 Dose: Not Given Documented by: Lactulose (Cephulac) 20 gm PO TID [facility] Last Admin: 07/15/20 10:21 Dose: 20 gm Documented by: Lactulose (Cephulac) 30 gm PO TID [facility] Last Admin: 07/30/20 08:33 Dose: 30 gm Documented by: Lidocaine/Epinephrine (Xylocaine 1% With Epinephrine 1:100,000) 20 ml INJECT ONETIME ONE Stop: 07/20/20 13:31 Last Admin: 07/20/20 14:59 Dose: Not Given Documented by: Losartan Potassium (Cozaar) 12.5 mg PO DAILY [facility] Last Admin: 07/31/20 08:52 Dose: Not Given Documented by: Magnesium Oxide (Magnesium Oxide) 400 mg PO BID [facility] Stop: 07/21/20 23:00 Last Admin: 07/21/20 20:19 Dose: 400 mg Documented by: Magnesium Oxide (Magnesium Oxide) 800 mg PO 1100 [facility] Last Admin: 08/02/20 11:59 Dose: 800 mg Documented by: Melatonin (Melatonin) 3 mg PO BEDTIME PRN PRN Reason: insomnia Last Admin: 07/25/20 22:03 Dose: 3 mg Documented by: Miscellaneous Information (Remove Patch) 0 ea TRDERM Q24H [facility] Last Admin: 07/31/20 14:26 Dose: 1 ea Documented by: Nicotine (Habitrol) 14 mg TRDERM Q24H [facility] Last Admin: 07/31/20 14:26 Dose: 14 mg Documented by: Non-Formulary Medication (Magnesium Oxide [Magnesium Oxide]) 400 mg PO DAILY [facility] Ondansetron HCl (Zofran) 4 mg IV Q6H PRN PRN Reason: Nausea/Vomiting Ondansetron HCl (Zofran) Confirm Administered Dose 4 mg .ROUTE .STK-MED ONE Stop: 07/28/20 11:03 Last Admin: 07/28/20 12:36 Dose: Not Given Documented by: Oxycodone HCl (Oxycodone) 5 - 10 mg PO Q6H PRN PRN Reason: Pain Potassium Chloride (Klor-Con M20) 40 meq PO TID [facility] Stop: 07/14/20 09:01 Last Admin: 07/14/20 10:09 Dose: 40 meq Documented by: Sodium Chloride (Saline Flush) 10 ml FLUSH ONETIME PRN PRN Reason: IV FLUSH Stop: 07/18/20 17:00 Spironolactone (Aldactone) 25 mg PO ONETIME ONE Stop: 07/12/20 19:18 Last Admin: 07/12/20 19:38 Dose: 25 mg Documented by: Spironolactone (Aldactone) 25 mg PO ONETIME ONE Stop: 07/13/20 09:16 Last Admin: 07/13/20 09:50 Dose: 25 mg Documented by: Spironolactone (Aldactone) 25 mg PO DAILY [facility] Spironolactone (Aldactone) 50 mg PO DAILY [facility] Last Admin: 07/15/20 10:20 Dose: 50 mg Documented by: Thiamine HCl (Vitamin B-1) 100 mg PO DAILY [facility] Vancomycin HCl (Pharmacy To Dose - Vancomycin) 1 dose .XX ASDIRECTED [facility] Stop: 07/21/20 23:00 Vancomycin HCl (Vancocin) Confirm Administered Dose 1 gm .ROUTE .STK-MED ONE Stop: 07/17/20 21:34 Last Admin: 07/17/20 23:07 Dose: Not Given Documented by: Venlafaxine HCl (Effexor) 37.5 mg PO BID MELISSA - Exam Quality Assessment: No: Supplemental Oxygen General: Alert, Oriented HEENT: Pupils Equal, Mucous Membr. Moist/[place] Neck: Supple Lungs: Normal Respiratory Effort, Crackles Cardiovascular: Regular Rate, Regular Rhythm GI/Abdominal Exam: Normal Bowel Sounds, Soft, Non-Tender, No Abnormal Bruit, Distended Extremities: Normal Inspection, Normal Range of Motion, Normal Capillary Refill Skin: Warm, Dry, Intact Psy/Mental Status: Alert Sepsis Event Note - Evaluation Sepsis Screening Result: No Definite Risk - Focused Exam Vital Signs: Vital Signs Pulse Resp BP Pulse Ox 08/03/20 02:32 68 17 96/55 L 98 - Problem List & Annotations (1) Cirrhosis of liver with ascites SNOMED Code(s): 01101427 Code(s): K74.60 - UNSPECIFIED CIRRHOSIS OF LIVER; R18.8 - OTHER ASCITES Status: Acute Current Visit: No Qualifiers: Hepatic cirrhosis type: alcoholic cirrhosis Qualified Code(s): K70.31 - Alc oholic cirrhosis of liver with ascites (2) Esophageal varices SNOMED Code(s): 52395672 Code(s): I85.00 - ESOPHAGEAL VARICES WITHOUT BLEEDING Status: Acute Current Visit: No (3) Acute renal failure due to angiotensin converting enzyme (TONY) inhibitor SNOMED Code(s): 436660803 Code(s): N17.9 - ACUTE KIDNEY FAILURE, UNSPECIFIED; T46.4X5A - ADVERSE EFFECT OF [id number]-DYIURT INHIBITORS, INIT Status: Acute Current Visit: Yes (4) Abscess of right leg SNOMED Code(s): 612897952 Code(s): L02.415 - CUTANEOUS ABSCESS OF RIGHT LOWER LIMB Status: Acute Priority: Medium Current Visit: Yes Onset Date: ~07/19/20 (5) Bilateral lower leg cellulitis SNOMED Code(s): 090773886 Code(s): L03.116 - CELLULITIS OF LEFT LOWER LIMB; L03.115 - CELLULITIS OF RIGHT LOWER LIMB Status: Acute Priority: Low Current Visit: Yes Onset Date: ~07/19/20 (6) Failure to thrive SNOMED Code(s): 54708758 Code(s): DCO9246 - Status: Acute Priority: Medium Current Visit: Yes Onset Date: ~07/19/20 Qualifiers: Failure to thrive age range: in adult Qualified Code(s): R62.7 - Adult failure to thrive (7) Gout SNOMED Code(s): 74524689 Code(s): M10.9 - GOUT, UNSPECIFIED Status: Acute Priority: High Current Visit: Yes Qualifiers: Gout site: toe Gout etiology: unspecified cause Chronicity: acute Laterality: right Qualified Code(s): M10.9 - Gout, unspecified (8) Liver disease due to alcohol SNOMED Code(s): 09945955 Code(s): K70.9 - ALCOHOLIC LIVER DISEASE, UNSPECIFIED Status: Acute Priority: Medium Current Visit: Yes Onset Date: ~07/29/20 (9) Thrombocytopenia SNOMED Code(s): 034351224 Code(s): D69.6 - THROMBOCYTOPENIA, UNSPECIFIED Status: Chronic Priority: High Current Visit: Yes - Problem List Review Problem List Initiated/Reviewed/Updated: Yes - Assessment Assessment:: 07/13/2020 - Day of Admission -64 yo Male who presents to ED on 07/12/20 with confusion and bilateral domingo lulitis -History of hepatic encephalopathy, End stage liver disease, ETOH abuse, Tobacco use, Esophageal varices with banding, depression, dependant edema -Patient admits to ED provider that he has not been taking his medications because he forgets -Denies any ETOH use for past 2 months (ETOH in ED was 0.00) -Kept in ED overnight due to bed shortage statewide and us being on diversion -Started on Vancomycin in ED foe cellulitis -Given lactulose, spironolactone, lasix, IV fluids, Xanax, vancomycin in ED -No WBC in ED, although likely cannot mount immunologic defense due to alcoholic bone marrow suppression -Sepsis criteria: -Bilateral cellulitis, No tachycardia, tachypnea, WBC, or fever -Hypotension likely 2/2 end stage liver failure, Lactate >2 likely 2/2 chronic ETOH abuse, Bilirubin >2 chronically, Platelets <100 chronically, INR elevated 2/2 End stage liver disease -Does not meet criteria -Per ED provider social work states patient apartment was very unkempt -Social work reports patient has been known to leave water running and burners on in apartment. Patient is being evicted. 07/14/2020 * Small improvement in cellulitis * Procalcitonin was negative at 0.05 * White count 6.1 and CRP 2.1 * Lactic acid is chronically elevated due to liver disease at 2.6. Total bilirubin elevated at 7.8 and direct bilirubin 3.8 * Oxygen requirement has increased to 4 L/min * Sodium chronically low at 131 07/15/2020 * Continued improvement in cellulitis * WBC remains WNL at 7.19 with CRP of 2.2 * Oxygen requirement has decreased to 2L * Blood cultures negative thus far * Sodium improved to 133 * Potassium 4.3 * Dr. Powell saw patient and recommends withholding patients effexor and monitoring * Patient remains quite confused 07/16/20 * Continue current treatment * Routine AM labs with Ammonia * Midodrine 5 mg po TIDAC * Remains confused with hallucinations (seeing squirrels inside his room) * May consider anti-psychotic medications if needed * Need Tele-psych consult 07/17/20 * Continue current treatment: Rocephin and Vancomycin * Routine AM labs * Offered I&D but patient refused * Wound culture on right ramos * Remains confused with hallucinations (seeing squirrels inside his room) * May consider anti-psychotic medications if needed * Need Tele-psych follow up * LOS > 96 HRS due to need for placement 07/18/20 * WBC improved to 10.41 from 11.68 * CRP 9.1 from 5.7 * Creatinine 1.4 with GFR of 51 * Requiring 6L O2 via NC * Wound culture showing no growth * MELD-Na score on admission calculated to be 29 points - 27-32% estimated 90- day mortality * D-Dimer 7.29 * BNP 1009 * INR 2.33 * CTA shows pleural effusions and ground glass opacities concerning for viral/atypical pneumonia\ * Discussed plan with Dr. Castro - will start covid-19 treatment protocol 07/19/2020 * WBC 8.31 * CRP Up to 11.4 * Ferritin 513 * LDH 475 * Procalcitonin 0.43 * Creatinine 1.5, GFR 47 * INR 2.24 * On high flow oxygen * Thoracentesis performed today by Dr. Shipley with just over 1L clear straw colored output 07/20/2020 * Echo results show: * 1. LVEF, by visual estimation, is 65-70% * 2. Hyperdynamic left ventricular systolic function * 3. Verbally normal right ventricular systolic function and size, not well visualized. * 4. The aortic valve is not well visualized. * 5. Trace mitral valve regurgitation * 6. Trace tricuspid valve regurgitation. * 7. The right ventricular systolic pressure is unable to be determined. * 8. There is a pleural effusion * WBC 9.58 * CRP 10.2 * Sodium 130 and stable * Creatinine 1.5 and GFR 47 and stable * Awaiting thoracentesis culture * VRP negative * Covid-19 negative (4th time) * Discontinued COVID-19 treatment * Discontinue isolation precautions once off of high flow 07/21/2020 * WBC 10.17 * CRP 8.4 * Sodium 130 and stable * Creatinine 1.3 and GFR 55 * S/P I&D of right ramos with Dr. Cazares on 07/20/2020 * Purulent bloody drainage * No cultures sent due to patient being on abx for several days * O2 down to 4L * Thoracentesis cultures show no growth * Continue current treatment plan * Legs continue to improve 07/22/2020 * No labs done today * Patient is stable without any complaints * He has been weaned off of oxygen * Cultures continue to be negative 07/23/2020 * Patient is back really 1 on 1 to 2L nasal cannula given oral tolerated * Otherwise he is without complaints. 07/24/2020 * Currently on 1 L nasal cannula * White count 9.6 with moderate toxic granulation, hemoglobin * No complaints. 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 04/17 on MOCA 07/26/2020 * Remains off of oxygen * Worsening pedal edema - weight up 14lbs on admission * Increase lasix dosing * No labs obtained today due to patient stability * Discontinue abx - completed therapy * SW continuing to work toward discharge plan 07/27/20 * Remains sable and off of oxygen * Continue increased lasix dosing * Labs remain grossly stable * Will hold off checking labs tomorrow and consider re-check * Legs edematous but overall look good * SW continues to work on discharge plan 07/28/20 * Generalized edema still noted. Continue Lasix. * No labs drawn today. * Dressing intact to right lower extremity. * Complains of pain to left great toe and fifth digit. Left great toe is reddened but there are no open areas and no drainage noted. Patient reports that he stubbed that toe, however I cannot assess the certainty of this due to the patient's cognition and lack of orientation. 07/29/2020 * Sodium down to 126 today * Fluid restriction started * Continued dressing on right lower extremity * Creatinine 1.4 and GFR 51 (stable) * Re-check BMP tomorrow * Given continued left great toe pain will check uric acid tomorrow * Remains confused * SW working on guardianship/placement. 07/30/2020 * Sodium remains 126 * Chloride 96 * Creatinine 1.3 and GFR 55 * Start low dose ARB at recommendation of Dr. Gomez * Will decrease PM lasix dose * Uric Acid 7.4 and patient complaining of toe pain * Will give colchicine 1.2mg followed by 0.6 mg * Recheck AM labs * Decreased lactulose dosing at patient request after discussion with Dr. Gomez * Remains slightly confused * Awaiting placement 07/31/2020 * Sodium improved to 127 * Potassium 3.9 * Chloride 94 * Creatine now 1.9 and GFR 36 * Kidney function likely decreased 2/2 ARB and colchicine * Minimal PO intake * Will stop ARB * Re-check AM labs including ammonia * Remains slightly confused but does remember conversations with nurse healthcare advisory services manager; states he feels like he is confused * Continued hallucinations * Will increase haldol dosing to 3mg at bedtime * Schedule melatonin * Dietary to continue to follow * Reports poor sleep * Thermotabs started 08/01/20 * Sodium is up to 128 today. * Creatinine 2.3 and GFR 29. * ARB has been discontinued. * Known new hallucinations reported * States discomfort to left great toe is much better * Awaiting placement. 08/02/2020 * Sodium, creatinine, and GFR are the same as yesterday, 128, 2.3, and 29, respectively. * Blood pressure has improved. * Anion gap has slightly increased to 17.4 and bicarb decreased to 20. * ABG shows respiratory alkalosis with metabolic compensation. Unknown reason at this time. * Appetite is minimal, but this appears to be chronic. * Thrombocytopenia is worse today at 76,000. 08/03/2020 * Kidney function has improved slightly with estimated GFR 32, creatinine 2.1. * Sodium slightly increased at 129. * BUN is continuing to increase at 44. * Anion gap back to normal at 13.1 * Continued dropping of his platelets had 68,000 * Bicarb improved to 23 * Magnesium elevated at 2.8 * Minimal right little toe pain. Hold off on treatment at this time, but may benefit tomorrow if toe continues to hurt by 1 dose of prednisone. * Generally patient is improving. * Awaiting placement - Plan Plan:: Bilateral cellulitis/Stasis Dermatitis, resolved Dependant edema Small hematoma/abscess on right ramos, resolved Leukocytosis, resolved Hypoxemia, resolved S/P Right ramos I&D Gout -Completed doxycycline -Completed Keflex -Monitor leg inflammation -Decrease oral Lasix to 40 mg daily at 0600 and 20mg daily at 1400 with spironolactone 100 mg daily -Continue to monitor kidney function and electrolytes closely. Patient may be getting intravascularly volume depleted. -Discontinue cozaar due to worsening renal function and hypotension -Patient likely has reduced intrarenal perfusion pressure and the addition of Cozaar caused worsening of the pressure. His renal function should return to baseline with the improving perfusion pressure. Failure to thrive Hypokalemia, resolved Hyponatremia, improved Lactic Acidosis, likely resolved Medical non-compliance Hypermagnesemia likely secondary to replacement and renal insufficiency Hypoalbuminemia, unchanged Relative Hypotension -Consult CM/SW -administrative services specialist working on placement as patient is not safe to be discharged home alone. -[employer] consult -Monitor electrolytes/magnesium and supplement as needed -On Midodrine 5 mg po TID -Fluid restriction -Asymptomatic -Start sodium tablets -Changing diuretics/ARB as above History of ETOH abuse Hepatic encephalopathy End-stage ETOH related cirrhosis Elevated INR Elevated Bilirubin Hx/o esophageal varices Thrombocytopenia Macrocytic Normochromic Anemia Elevated serum ammonia Hyperlactatemia Umbilical hernia -Decrease Lactulose to 15mg TID as patient is complaining of significant diarrhea -Continue Lasix 40 mg in the morning and 20 mg in the afternoon -Continue spironolactone 100mg daily -Pharmacological DVT prophylaxis contraindicated -Continue folic acid, MV, thiamine supplementation -Low protein diet -Consult booking clerk -Due to end-stage cirrhosis we can expect BPs on the lower side -hyperlactatemia is likely 2/2 to end-stage liver disease and chronic ETOH abuse. Depression Hallucinations -Haldol 3mg at bedtime -Discontinue Effexor -Schedule melatonin to support sleep Tobacco use disorder -Cessation counseling at discharge -Nicotine patches- decreased to 7mg Code status: DNR/DNI PCP: Dr. Mccollum DVT prophylaxis: Pharmacological prophylaxis contraindicated due to significant esophageal varices history, Elevated INR, thrombocytopenia. Mechanical prophylaxis contraindicated due to bilateral LE cellulitis, dependant LE edema. Disposition: Patient admitted due to cellulitis, electrolyte abnormalities, failure to thrive and need for placement. Social: Patient reportedly lives in an apartment. [facility] Credit Support Counselor is following patient. Patient has history of leaving water running and forgetting to turn of burner. Per ED note apartment is very unkempt and there are concerns for patient safety. SW/CM consulted. Prognosis: Overall poor prognosis due to end-stage ETOH cirrhosis. LOS >96 HRS due to need for placement
[2020-08-03] MEDS: Sodium Chloride/Potassium Chloride Tab PO SCH ×2 (09:38→21:43)
[2020-08-03] MEDS: Thiamine 100 MG Tab PO SCH (09:38)
[2020-08-03] MEDS: Folic Acid 1 MG Tab PO SCH (09:38)
[2020-08-03] MEDS: Spironolactone 100 MG Tab PO SCH (09:38)
[2020-08-03] MEDS: Multivitamins,Therapeutic Tab PO SCH (09:38)
[2020-08-03] MEDS: Lactulose Soln 10 GM/15 ML 30 ML UD Cup PO SCH ×3 (09:39→21:45)
[2020-08-03] MEDS: Nicotine 7 MG/24 Hr Patch TRDERM SCH (09:39)
[2020-08-03] MEDS: Furosemide 20 MG Tab PO SCH (14:35)
[2020-08-03] MEDS: Haloperidol 1 MG Tab PO SCH (21:43)
[2020-08-03] MEDS: Melatonin 3 MG Tab PO SCH (21:44)
[2020-08-03] MEDS: Famotidine 40 MG/5 ML Bottle PO SCH (21:44)
[2020-08-04] MEDS: Furosemide 40 MG Tab PO SCH (06:18)
[2020-08-04] MEDS: Midodrine 5 MG Tab PO SCH ×3 (06:18→16:24)
[2020-08-04] MEDS: oxyCODONE 5 MG Tab PO PRN (06:56)
--- NOTE | 2020-08-04 07:30 | PCM.PN ---
- General Info Date of Service: 08/04/20 Admission Dx/Problem (Free Text): Admission Diagnosis/Problem Admission Diagnosis/Problem Cellulitis Subjective Update: In to see Mandeep. He remains somewhat confused but seems a bit more today. He is still hallucinating occasionally. Has been refusing therapies. Will re-consult Dr. Powell. Continues to have left toe pain. Denies any pain. Mildly SOB but not requiring oxygen. Continue current treatment plan. Functional Status: Reports: Pain Controlled, Tolerating Diet, Ambulating, Urinating. Denies: New Symptoms - Review of Systems General: Reports: Weakness. Denies: Fever, Fatigue, Malaise, Chills HEENT: Reports: No Symptoms. Denies: Headaches, Sore Throat Pulmonary: Reports: Shortness of Breath. Denies: Pleuritic Chest Pain, Cough, Sputum, Wheezing Cardiovascular: Reports: Edema. Denies: Chest Pain, Palpitations Gastrointestinal: Denies: Abdominal Pain, Constipation, Diarrhea, Nausea, Vomiting Genitourinary: Reports: No Symptoms. Denies: Pain Musculoskeletal: Reports: Foot Pain (Right great and little toes ) Skin: Reports: No Symptoms. Denies: Cyanosis Neurological: Reports: Confusion, Pre-Existing Deficit, Weakness. Denies: Dizziness, Numbness, Tingling, Difficulty Walking, Gait Disturbance Psychiatric: Reports: No Symptoms - Patient Data Vitals - Most Recent: Last Vital Signs Temp 96.1 F L 08/04/20 02:14 Pulse 62 08/03/20 22:00 Resp 14 08/04/20 02:14 BP 116/56 L 08/04/20 02:14 Pulse Ox 95 08/04/20 02:14 Weight - Most Recent: 202 lb 6.4 oz I&O - Last 24 Hours: Intake & Output 08/03/20 08/04/20 08/04/20 22:59 06:59 14:59 Intake Total 300 400 Output Total 300 Balance 0 400 Lab Results Last 24 Hours: Laboratory Results - last 24 hr 08/03/20 08/03/20 Range/Units 07:19 07:19 WBC 3.56 L (4.23-9.07) K/mm3 RBC 2.64 L (4.63-6.08) M/mm3 Hgb 9.0 L (13.7-17.5) gm/dl Hct 26.5 L (40.1-51.0) % MCV 100.4 H (79.0-92.2) fl MCH 34.1 H (25.7-32.2) pg MCHC 34.0 (32.2-35.5) g/dl RDW Std Deviation 72.7 H (35.1-43.9) fL Plt Count 68 L (163-337) K/mm3 MPV 10.1 (9.4-12.3) fl Neut % (Auto) 51.6 (34.0-67.9) % Lymph % (Auto) 25.3 (21.8-53.1) % [place] % (Auto) 19.1 H (5.3-12.2) % Eos % (Auto) 3.4 (0.8-7.0) Baso % (Auto) 0.3 (0.1-1.2) % Neut # (Auto) 1.84 (1.78-5.38) K/mm3 Lymph # (Auto) 0.90 L (1.32-3.57) K/mm3 [place] # (Auto) 0.68 (0.30-0.82) K/mm3 Eos # (Auto) 0.12 (0.04-0.54) K/mm3 Baso # (Auto) 0.01 (0.01-0.08) K/mm3 Manual Slide Review Abnormal smear Sodium 129 L (136-145) mEq/L Potassium 4.1 (3.5-5.1) mEq/L Chloride 97 L (98-107) mEq/L Carbon Dioxide 23 (21-32) mEq/L Anion Gap 13.1 (5-15) BUN 44 H (7-18) mg/dL Creatinine 2.1 H (0.7-1.3) mg/dL Est Cr Clr Drug Dosing 33.93 mL/min Estimated GFR (MDRD) 32 (>60) mL/min BUN/Creatinine Ratio 21.0 H (14-18) Glucose 97 (80-115) mg/dL Calcium 8.6 (8.5-10.1) mg/dL Phosphorus 4.7 (2.6-4.7) mg/dL Magnesium 2.8 H (1.8-2.4) mg/dl Total Bilirubin 7.3 H (0.2-1.0) mg/dL AST 63 H (15-37) U/L ALT 76 H (16-63) U/L Alkaline Phosphatase 77 (46-116) U/L Total Protein 5.6 L (6.4-8.2) g/dl Albumin 1.9 L (3.4-5.0) g/dl Globulin 3.7 gm/dL Albumin/Globulin Ratio 0.5 L (1-2) Med Orders - Current: Current Medications Acetaminophen (Tylenol) 650 mg PO Q4H PRN PRN Reason: Pain/Fever Last Admin: 07/27/20 14:13 Dose: 650 mg Documented by: Famotidine (Pepcid) 40 mg PO BEDTIME [facility] Last Admin: 08/03/20 21:44 Dose: 5 ml Documented by: Folic Acid (Folic Acid) 1 mg PO DAILY [facility] Last Admin: 08/03/20 09:38 Dose: 1 mg Documented by: Furosemide (Lasix) 40 mg PO DAILY@0600 [facility] Last Admin: 08/04/20 06:18 Dose: 40 mg Documented by: Furosemide (Lasix) 20 mg PO DAILY@1400 [facility] Last Admin: 08/03/20 14:35 Dose: 20 mg Documented by: Haloperidol (Haldol) 3 mg PO BEDTIME [facility] Last Admin: 08/03/20 21:43 Dose: 3 mg Documented by: Lactulose (Cephulac) 15 gm PO TID [facility] Last Admin: 08/03/20 21:45 Dose: 15 gm Documented by: Melatonin (Melatonin) 3 mg PO BEDTIME [facility] Last Admin: 08/03/20 21:44 Dose: 3 mg Documented by: Midodrine (Midodrine) 5 mg PO TIDAC [facility] Last Admin: 08/04/20 06:18 Dose: 5 mg Documented by: Miscellaneous Information (Remove Patch) 0 ea TRDERM Q24H [facility] Last Admin: 08/03/20 09:40 Dose: 1 ea Documented by: Multivitamins (Thera) 1 each PO DAILY [facility] Last Admin: 08/03/20 09:38 Dose: 1 each Documented by: Nicotine (Habitrol) 7 mg TRDERM DAILY [facility] Last Admin: 08/03/20 09:39 Dose: 7 mg Documented by: Ondansetron HCl (Zofran Odt) 4 mg PO Q4H PRN PRN Reason: Nausea/Vomiting Last Admin: 07/29/20 22:22 Dose: 4 mg Documented by: Oral Electrolytes (Thermotabs) 2 each PO BID [facility] Last Admin: 08/03/20 21:43 Dose: 2 each Documented by: Oxycodone HCl (Oxycodone) 5 mg PO Q6H PRN PRN Reason: Pain (moderate 4-6) Last Admin: 08/04/20 06:56 Dose: 5 mg Documented by: Oxycodone HCl (Oxycodone) 10 mg PO Q6H PRN PRN Reason: Pain (severe 7-10) Last Admin: 08/02/20 06:52 Dose: 10 mg Documented by: Spironolactone (Aldactone) 100 mg PO DAILY [facility] Last Admin: 08/03/20 09:38 Dose: 100 mg Documented by: Thiamine HCl (Vitamin B-1) 100 mg PO DAILY [facility] Last Admin: 08/03/20 09:38 Dose: 100 mg Documented by: Discontinued Medications Alprazolam (Xanax) 1 mg PO BEDTIME ONE Stop: 07/12/20 21:01 Last Admin: 07/12/20 21:24 Dose: 1 mg Documented by: Alprazolam (Xanax) 1 mg PO BEDTIME [facility] Cephalexin (Keflex) 500 mg PO Q8H [facility] Stop: 07/27/20 06:01 Last Admin: 07/27/20 06:47 Dose: 500 mg Documented by: Colchicine (Colcrys) 1.2 mg PO ONETIME ONE Stop: 07/30/20 09:13 Last Admin: 07/30/20 10:24 Dose: 1.2 mg Documented by: Colchicine (Colcrys) 0.6 mg PO ONETIME ONE Stop: 07/30/20 11:01 Last Admin: 07/30/20 10:25 Dose: 0.6 mg Documented by: Dexamethasone (Dexamethasone) 6 mg PO Q24H [facility] Stop: 07/27/20 16:01 Last Admin: 07/19/20 15:51 Dose: 6 mg Documented by: Doxycycline Hyclate (Vibramycin) 100 mg PO BID [facility] Last Admin: 07/25/20 08:40 Dose: 100 mg Documented by: Folic Acid (Folic Acid) 1 mg PO DAILY [facility] Furosemide (Lasix) 40 mg IVPUSH NOW ONE Stop: 07/12/20 19:17 Last Admin: 07/12/20 19:38 Dose: 40 mg Documented by: Furosemide (Lasix) 40 mg IVPUSH NOW ONE Stop: 07/13/20 09:15 Last Admin: 07/13/20 09:42 Dose: 40 mg Documented by: Furosemide (Lasix) 40 mg IVPUSH DAILY [facility] Furosemide (Lasix) 20 mg IVPUSH DAILY [facility] Last Admin: 07/14/20 10:10 Dose: 20 mg Documented by: Furosemide (Lasix) 40 mg IVPUSH DAILY [facility] Last Admin: 07/24/20 08:33 Dose: 40 mg Documented by: Furosemide (Lasix) 40 mg PO DAILY [facility] Last Admin: 07/26/20 09:55 Dose: 40 mg Documented by: Furosemide (Lasix) 40 mg PO BIDDIURETIC [facility] Last Admin: 07/30/20 06:28 Dose: 40 mg Documented by: Furosemide (Lasix) 20 mg IVPUSH NOW ONE Stop: 07/26/20 11:46 Last Admin: 07/26/20 11:45 Dose: 20 mg Documented by: Haloperidol (Haldol) 2 mg PO BEDTIME [facility] Last Admin: 07/30/20 21:02 Dose: 2 mg Documented by: Sodium Chloride (Normal Saline) 1,000 mls @ 125 mls/hr IV ASDIRECTED [facility] Last Admin: 07/12/20 17:03 Dose: 125 mls/hr Documented by: Vancomycin HCl 1.5 gm/ Sodium (Chloride) 500 mls @ 250 mls/hr IV ONETIME ONE Stop: 07/12/20 19:21 Last Admin: 07/12/20 20:07 Dose: 250 mls/hr Documented by: Vancomycin HCl 1 gm/ Sodium (Chloride) 250 mls @ 250 mls/hr IV Q12H [facility] Last Admin: 07/14/20 23:00 Dose: 250 mls/hr Documented by: Ceftriaxone Sodium 2 gm/ (Sodium Chloride) 100 mls @ 200 mls/hr IV Q24H [facility] Last Admin: 07/14/20 14:38 Dose: 200 mls/hr Documented by: Sodium Chloride (Normal Saline) 1,000 mls @ 100 mls/hr IV ASDIRECTED [facility] Stop: 07/15/20 00:59 Last Admin: 07/14/20 00:04 Dose: 100 mls/hr Documented by: Vancomycin HCl 1 gm/ Sodium (Chloride) 250 mls @ 250 mls/hr IV Q24H [facility] Stop: 07/21/20 23:00 Last Admin: 07/21/20 20:20 Dose: 250 mls/hr Documented by: Ceftriaxone Sodium 2 gm/ (Sodium Chloride) 100 mls @ 200 mls/hr IV Q24H [facility] Stop: 07/21/20 17:00 Last Admin: 07/21/20 15:10 Dose: 200 mls/hr Documented by: Sodium Chloride (Normal Saline) 100 mls @ 75 mls/hr IV ASDIRECTED [facility] Stop: 07/18/20 17:00 Azithromycin 500 mg/ Sodium (Chloride) 250 mls @ 250 mls/hr IV Q24H [facility] Last Admin: 07/20/20 15:19 Dose: 250 mls/hr Documented by: Remdesivir 200 mg/ Sodium (Chloride) 250 mls @ 250 mls/hr IV ONETIME ONE Stop: 07/18/20 17:29 Last Admin: 07/18/20 17:55 Dose: 250 mls/hr Documented by: Remdesivir 100 mg/ Sodium (Chloride) 100 mls @ 100 mls/hr IV Q24H [facility] Stop: 07/22/20 17:29 Last Admin: 07/19/20 17:14 Dose: 100 mls/hr Documented by: Albumin Human (Flexbumin 25%) 12.5 gm in 50 mls @ 100 mls/hr IV ONETIME ONE Stop: 07/30/20 10:04 Last Admin: 07/30/20 10:25 Dose: 100 mls/hr Documented by: Iopamidol (Isovue-370 (76%)) 100 ml IVPUSH ONETIME ONE Stop: 07/18/20 13:38 Last Admin: 07/18/20 16:43 Dose: Not Given Documented by: Lactulose (Cephulac) 20 gm PO TID [facility] Last Admin: 07/13/20 15:46 Dose: Not Given Documented by: Lactulose (Cephulac) 20 gm PO TID [facility] Last Admin: 07/15/20 10:21 Dose: 20 gm Documented by: Lactulose (Cephulac) 30 gm PO TID [facility] Last Admin: 07/30/20 08:33 Dose: 30 gm Documented by: Lidocaine/Epinephrine (Xylocaine 1% With Epinephrine 1:100,000) 20 ml INJECT ONETIME ONE Stop: 07/20/20 13:31 Last Admin: 07/20/20 14:59 Dose: Not Given Documented by: Losartan Potassium (Cozaar) 12.5 mg PO DAILY [facility] Last Admin: 07/31/20 08:52 Dose: Not Given Documented by: Magnesium Oxide (Magnesium Oxide) 400 mg PO BID [facility] Stop: 07/21/20 23:00 Last Admin: 07/21/20 20:19 Dose: 400 mg Documented by: Magnesium Oxide (Magnesium Oxide) 800 mg PO 1100 [facility] Last Admin: 08/02/20 11:59 Dose: 800 mg Documented by: Melatonin (Melatonin) 3 mg PO BEDTIME PRN PRN Reason: insomnia Last Admin: 07/25/20 22:03 Dose: 3 mg Documented by: Miscellaneous Information (Remove Patch) 0 ea TRDERM Q24H [facility] Last Admin: 07/31/20 14:26 Dose: 1 ea Documented by: Nicotine (Habitrol) 14 mg TRDERM Q24H [facility] Last Admin: 07/31/20 14:26 Dose: 14 mg Documented by: Non-Formulary Medication (Magnesium Oxide [Magnesium Oxide]) 400 mg PO DAILY [facility] Ondansetron HCl (Zofran) 4 mg IV Q6H PRN PRN Reason: Nausea/Vomiting Ondansetron HCl (Zofran) Confirm Administered Dose 4 mg .ROUTE .STK-MED ONE Stop: 07/28/20 11:03 Last Admin: 07/28/20 12:36 Dose: Not Given Documented by: Oxycodone HCl (Oxycodone) 5 - 10 mg PO Q6H PRN PRN Reason: Pain Potassium Chloride (Klor-Con M20) 40 meq PO TID [facility] Stop: 07/14/20 09:01 Last Admin: 07/14/20 10:09 Dose: 40 meq Documented by: Sodium Chloride (Saline Flush) 10 ml FLUSH ONETIME PRN PRN Reason: IV FLUSH Stop: 07/18/20 17:00 Spironolactone (Aldactone) 25 mg PO ONETIME ONE Stop: 07/12/20 19:18 Last Admin: 07/12/20 19:38 Dose: 25 mg Documented by: Spironolactone (Aldactone) 25 mg PO ONETIME ONE Stop: 07/13/20 09:16 Last Admin: 07/13/20 09:50 Dose: 25 mg Documented by: Spironolactone (Aldactone) 25 mg PO DAILY [facility] Spironolactone (Aldactone) 50 mg PO DAILY [facility] Last Admin: 07/15/20 10:20 Dose: 50 mg Documented by: Thiamine HCl (Vitamin B-1) 100 mg PO DAILY [facility] Vancomycin HCl (Pharmacy To Dose - Vancomycin) 1 dose .XX ASDIRECTED [facility] Stop: 07/21/20 23:00 Vancomycin HCl (Vancocin) Confirm Administered Dose 1 gm .ROUTE .STK-MED ONE Stop: 07/17/20 21:34 Last Admin: 07/17/20 23:07 Dose: Not Given Documented by: Venlafaxine HCl (Effexor) 37.5 mg PO BID [facility] - Exam Quality Assessment: DVT Prophylaxis. No: Supplemental Oxygen, Urine Catheter General: Alert, Cooperative, No Acute Distress. No: Oriented HEENT: Pupils Equal, Pupils Reactive, Mucous Membr. Moist/Sentinel, Scleral Icterus Neck: Supple, Trachea Midline Lungs: Normal Respiratory Effort, Crackles Cardiovascular: Regular Rate, Regular Rhythm GI/Abdominal Exam: Normal Bowel Sounds, Soft, Non-Tender, No Distention (Male) Exam: Deferred Back Exam: Normal Inspection, Full Range of Motion Extremities: Normal Inspection, Normal Range of Motion, Non-Tender, Normal Capil nighat Refill, Pedal Edema Skin: Warm, Dry, Intact Wound/Incisions: Healing Well Neurological: No New Focal Deficit Psy/Mental Status: Alert, Normal Affect, Hallucinations Sepsis Event Note - Evaluation Sepsis Screening Result: No Definite Risk - Focused Exam Vital Signs: Vital Signs Temp Temp Pulse Pulse Resp BP BP 08/04/20 02:14 96.1 F L 14 116/56 L 08/03/20 22:00 97 F 62 12 95/57 L 08/03/20 19:39 97.0 F 62 12 95/57 L Pulse Ox 08/04/20 02:14 95 08/03/20 22:00 96 08/03/20 19:39 96 - Problem List & Annotations (1) Tobacco use disorder SNOMED Code(s): 952105017 Code(s): F17.200 - NICOTINE DEPENDENCE, UNSPECIFIED, UNCOMPLICATED Status: Chronic Priority: Medium Current Visit: No (2) History of alcohol abuse SNOMED Code(s): 446309032 Code(s): F10.11 - ALCOHOL ABUSE, IN REMISSION Status: Chronic Priority: Medium Current Visit: No (3) Esophageal varices without bleeding SNOMED Code(s): 84554891 Code(s): I85.00 - ESOPHAGEAL VARICES WITHOUT BLEEDING Status: Chronic Priority: Medium Current Visit: No Qualifiers: Esophageal varices type: unspecified type Qualified Code(s): I85.00 - Esophageal varices without bleeding (4) Failure to thrive SNOMED Code(s): 88701793 Code(s): AAL4514 - Status: Acute Priority: Medium Current Visit: Yes Onset Date: ~07/19/20 Qualifiers: Failure to thrive age range: in adult Qualified Code(s): R62.7 - Adult failure to thrive (5) Difficulty walking SNOMED Code(s): 344191947 Code(s): R26.2 - DIFFICULTY IN WALKING, NOT ELSEWHERE CLASSIFIED Status: Acute Priority: Low Current Visit: Yes Onset Date: ~07/19/20 (6) Medical non-compliance SNOMED Code(s): 019890253 Code(s): Z91.19 - PATIENT'S NONCOMPLIANCE [facility] Status: Chronic Priority: High Current Visit: Yes (7) Serum ammonia increased SNOMED Code(s): 4456923 Code(s): E72.20 - DISORDER OF UREA CYCLE METABOLISM, UNSPECIFIED Status: Chronic Priority: High Current Visit: Yes (8) Anemia SNOMED Code(s): 645439707 Code(s): D64.9 - ANEMIA, UNSPECIFIED Status: Chronic Priority: High Current Visit: Yes Qualifiers: Anemia type: bone marrow failure Bone marrow failure anemia type: unspecified bone marrow failure Qualified Code(s): D61.9 - Aplastic anemia, unspecified (9) Bilateral lower leg cellulitis SNOMED Code(s): 256963029 Code(s): L03.116 - CELLULITIS OF LEFT LOWER LIMB; L03.115 - CELLULITIS OF RIGHT LOWER LIMB Status: Acute Priority: Low Current Visit: Yes Onset Date: ~07/19/20 (10) Cirrhosis of liver SNOMED Code(s): 97626361 Code(s): K74.60 - UNSPECIFIED CIRRHOSIS OF LIVER Status: Chronic Priority: High Current Visit: Yes Qualifiers: Hepatic cirrhosis type: alcoholic cirrhosis Ascites presence: with ascites Qualified Code(s): K70.31 - Alcoholic cirrhosis of liver with ascites (11) Dependent edema SNOMED Code(s): 420966596 Code(s): R60.9 - EDEMA, UNSPECIFIED Status: Acute Priority: High Current Visit: Yes (12) Elevated INR SNOMED Code(s): 317175670 Code(s): R79.1 - ABNORMAL COAGULATION PROFILE Status: Chronic Priority: M edium Current Visit: Yes (13) Hypokalemia SNOMED Code(s): 19208446 Code(s): E87.6 - HYPOKALEMIA Status: Resolved Priority: High Current Visit: Yes (14) Hyponatremia SNOMED Code(s): 58476407 Code(s): E87.1 - HYPO-OSMOLALITY AND HYPONATREMIA Status: Acute Priority: Medium Current Visit: Yes Onset Date: ~07/19/20 (15) Thrombocytopenia SNOMED Code(s): 571914634 Code(s): D69.6 - THROMBOCYTOPENIA, UNSPECIFIED Status: Chronic Priority: High Current Visit: Yes (16) Depression SNOMED Code(s): 78474091 Code(s): F32.9 - MAJOR DEPRESSIVE DISORDER, SINGLE EPISODE, UNSPECIFIED Status: Chronic Priority: Medium Current Visit: Yes Qualifiers: Depression Type: other depression Qualified Code(s): F32.89 - Other specified depressive episodes (17) Hepatic encephalopathy SNOMED Code(s): 59267285 Code(s): K72.90 - HEPATIC FAILURE, UNSPECIFIED WITHOUT COMA Status: Chronic Priority: High Current Visit: Yes (18) Lactic acidosis SNOMED Code(s): 44695586 Code(s): E87.2 - ACIDOSIS Status: Acute Priority: High Current Visit: Yes (19) Hypoxia SNOMED Code(s): 601277779 Code(s): R09.02 - HYPOXEMIA Status: Acute Priority: High Current Visit: Yes (20) Elevated d-dimer SNOMED Code(s): 607246758 Code(s): R79.89 - OTHER SPECIFIED ABNORMAL FINDINGS OF BLOOD CHEMISTRY Status: Acute Priority: High Current Visit: Yes (21) Respiratory failure SNOMED Code(s): 383635522 Code(s): J96.90 - RESPIRATORY FAILURE, UNSP, UNSP W HYPOXIA OR HYPERCAPNIA Status: Resolved Priority: High Current Visit: Yes Qualifiers: Chronicity: acute Respiratory failure complication: hypoxia Qualified Code(s): J96.01 - Acute respiratory failure with hypoxia (22) Suspected COVID-19 virus infection SNOMED Code(s): 758438230 Code(s): Z20.828 - CONTACT W AND EXPOSURE TO OTH VIRAL COMMUNICABLE DISEASES Status: Ruled-out Priority: High Current Visit: Yes (23) S/P thoracentesis SNOMED Code(s): 046640548, 69913211, 098670910 Code(s): Z98.890 - OTHER SPECIFIED POSTPROCEDURAL STATES Status: Acute Priority: Low Current Visit: Yes (24) Status post incision and drainage SNOMED Code(s): 866741861, 555370174 Code(s): Z98.890 - OTHER SPECIFIED POSTPROCEDURAL STATES Status: Acute Priority: Medium Current Visit: Yes (25) Hallucination, visual SNOMED Code(s): 59503999 Code(s): R44.1 - VISUAL HALLUCINATIONS Status: Acute Priority: Low Current Visit: Yes Onset Date: ~07/19/20 (26) Gout SNOMED Code(s): 72896523 Code(s): M10.9 - GOUT, UNSPECIFIED Status: Acute Priority: High Current Visit: Yes Qualifiers: Gout site: toe Gout etiology: unspecified cause Chronicity: acute Laterality: right Qualified Code(s): M10.9 - Gout, unspecified (27) Umbilical hernia SNOMED Code(s): 308950164 Code(s): K42.9 - UMBILICAL HERNIA WITHOUT OBSTRUCTION OR GANGRENE Status: Chronic Priority: Low Current Visit: No Qualifiers: Obstruction and gangrene presence: without obstruction or gangrene Qualified Code(s): K42.9 - Umbilical hernia without obstruction or gangrene - Problem List Review Problem List Initiated/Reviewed/Updated: Yes - Assessment Assessment:: 07/13/2020 - Day of Admission -64 yo Male who presents to ED on 07/12/20 with confusion and bilateral cellulitis -History of hepatic encephalopathy, End stage liver disease, ETOH abuse, Tobacco use, Esophageal varices with banding, depression, dependant edema -Patient admits to ED provider that he has not been taking his medications because he forgets -Denies any ETOH use for past 2 months (ETOH in ED was 0.00) -Kept in ED overnight due to bed shortage statewide and us being on diversion -Started on Vancomycin in ED foe cellulitis -Given lactulose, spironolactone, lasix, IV fluids, Xanax, vancomycin in ED -No WBC in ED, although likely cannot mount immunologic defense due to alcoholic bone marrow suppression -Sepsis criteria: -Bilateral cellulitis, No tachycardia, tachypnea, WBC, or fever -Hypotension likely 2/2 end stage liver failure, Lactate >2 likely 2/2 chronic ETOH abuse, Bilirubin >2 chronically, Platelets <100 chronically, INR elevated 2/2 End stage liver disease -Does not meet criteria -Per ED provider social work states patient apartment was very unkempt -Social work reports patient has been known to leave water running and burners on in apartment. Patient is being evicted. 07/14/2020 * Small improvement in cellulitis * Procalcitonin was negative at 0.05 * White count 6.1 and CRP 2.1 * Lactic acid is chronically elevated due to liver disease at 2.6. Total bilirubin elevated at 7.8 and direct bilirubin 3.8 * Oxygen requirement has increased to 4 L/min * Sodium chronically low at 131 07/15/2020 * Continued improvement in cellulitis * WBC remains WNL at 7.19 with CRP of 2.2 * Oxygen requirement has decreased to 2L * Blood cultures negative thus far * Sodium improved to 133 * Potassium 4.3 * Dr. Powell saw patient and recommends withholding patients effexor and monitoring * Patient remains quite confused 07/16/20 * Continue current treatment * Routine AM labs with Ammonia * Midodrine 5 mg po TIDAC * Remains confused with hallucinations (seeing squirrels inside his room) * May consider anti-psychotic medications if needed * Need Tele-psych consult 07/17/20 * Continue current treatment: Rocephin and Vancomycin * Routine AM labs * Offered I&D but patient refused * Wound culture on right ramos * Remains confused with hallucinations (seeing squirrels inside his room) * May consider anti-psychotic medications if needed * Need Tele-psych follow up * LOS > 96 HRS due to need for placement 07/18/20 * WBC improved to 10.41 from 11.68 * CRP 9.1 from 5.7 * Creatinine 1.4 with GFR of 51 * Requiring 6L O2 via NC * Wound culture showing no growth * MELD-Na score on admission calculated to be 29 points - 27-32% estimated 90- day mortality * D-Dimer 7.29 * BNP 1009 * INR 2.33 * CTA shows pleural effusions and ground glass opacities concerning for viral/atypical pneumonia\ * Discussed plan with Dr. Castro - will start covid-19 treatment protocol 07/19/2020 * WBC 8.31 * CRP Up to 11.4 * Ferritin 513 * LDH 475 * Procalcitonin 0.43 * Creatinine 1.5, GFR 47 * INR 2.24 * On high flow oxygen * Thoracentesis performed today by Dr. Shipley with just over 1L clear straw colored output 07/20/2020 * Echo results show: * 1. LVEF, by visual estimation, is 65-70% * 2. Hyperdynamic left ventricular systolic function * 3. Verbally normal right ventricular systolic function and size, not well visualized. * 4. The aortic valve is not well visualized. * 5. Trace mitral valve regurgitation * 6. Trace tricuspid valve regurgitation. * 7. The right ventricular systolic pressure is unable to be determined. * 8. There is a pleural effusion * WBC 9.58 * CRP 10.2 * Sodium 130 and stable * Creatinine 1.5 and GFR 47 and stable * Awaiting thoracentesis culture * VRP negative * Covid-19 negative (4th time) * Discontinued COVID-19 treatment * Discontinue isolation precautions once off of high flow 07/21/2020 * WBC 10.17 * CRP 8.4 * Sodium 130 and stable * Creatinine 1.3 and GFR 55 * S/P I&D of right ramos with Dr. Cazares on 07/20/2020 * Purulent bloody drainage * No cultures sent due to patient being on abx for several days * O2 down to 4L * Thoracentesis cultures show no growth * Continue current treatment plan * Legs continue to improve 07/22/2020 * No labs done today * Patient is stable without any complaints * He has been weaned off of oxygen * Cultures continue to be negative 07/23/2020 * Patient is back really 1 on 1 to 2L nasal cannula given oral tolerated * Otherwise he is without complaints. 07/24/2020 * Currently on 1 L nasal cannula * White count 9.6 with moderate toxic granulation, hemoglobin * No complaints. * Currently on Keflex and doxycycline 07/25/2020 * Off of oxygen today * No new complaints - still reports foot and back pain * On Keflex - doxycycline was discontinued * Serosanguineous drainage from left hip * Sodium 129 and stable * Pending placement * [employer] TECHNICIAN evaluation on Saturday noted significant cognitive deficit. 04/17 on MOCA 07/26/2020 * Remains off of oxygen * Worsening pedal edema - weight up 14lbs on admission * Increase lasix dosing * No labs obtained today due to patient stability * Discontinue abx - completed therapy * SW continuing to work toward discharge plan 07/27/20 * Remains sable and off of oxygen * Continue increased lasix dosing * Labs remain grossly stable * Will hold off checking labs tomorrow and consider re-check * Legs edematous but overall look good * SW continues to work on discharge plan 07/28/20 * Generalized edema still noted. Continue Lasix. * No labs drawn today. * Dressing intact to right lower extremity. * Complains of pain to left great toe and fifth digit. Left great toe is reddened but there are no open areas and no drainage noted. Patient reports that he stubbed that toe, however I cannot assess the certainty of this due to the patient's cognition and lack of orientation. 07/29/2020 * Sodium down to 126 today * Fluid restriction started * Continued dressing on right lower extremity * Creatinine 1.4 and GFR 51 (stable) * Re-check BMP tomorrow * Given continued left great toe pain will check uric acid tomorrow * Remains confused * SW working on guardianship/placement. 07/30/2020 * Sodium remains 126 * Chloride 96 * Creatinine 1.3 and GFR 55 * Start low dose ARB at recommendation of Dr. Gomez * Will decrease PM lasix dose * Uric Acid 7.4 and patient complaining of toe pain * Will give colchicine 1.2mg followed by 0.6 mg * Recheck AM labs * Decreased lactulose dosing at patient request after discussion with Dr. Gomez * Remains slightly confused * Awaiting placement 07/31/2020 * Sodium improved to 127 * Potassium 3.9 * Chloride 94 * Creatine now 1.9 and GFR 36 * Kidney function likely decreased 2/2 ARB and colchicine * Minimal PO intake * Will stop ARB * Re-check AM labs including ammonia * Remains slightly confused but does remember conversations with nurse spa manager; states he feels like he is confused * Continued hallucinations * Will increase haldol dosing to 3mg at bedtime * Schedule melatonin * Dietary to continue to follow * Reports poor sleep * Thermotabs started 08/01/20 * Sodium is up to 128 today. * Creatinine 2.3 and GFR 29. * ARB has been discontinued. * Known new hallucinations reported * States discomfort to left great toe is much better * Awaiting placement. 08/02/2020 * Sodium, creatinine, and GFR are the same as yesterday, 128, 2.3, and 29, respectively. * Blood pressure has improved. * Anion gap has slightly increased to 17.4 and bicarb decreased to 20. * ABG shows respiratory alkalosis with metabolic compensation. Unknown reason at this time. * Appetite is minimal, but this appears to be chronic. * Thrombocytopenia is worse today at 76,000. 08/03/2020 * Kidney function has improved slightly with estimated GFR 32, creatinine 2.1. * Sodium slightly increased at 129. * BUN is continuing to increase at 44. * Anion gap back to normal at 13.1 * Continued dropping of his platelets had 68,000 * Bicarb improved to 23 * Magnesium elevated at 2.8 * Minimal right little toe pain. Hold off on treatment at this time, but may benefit tomorrow if toe continues to hurt by 1 dose of prednisone. * Generally patient is improving. * Awaiting placement 08/04/2020 * No labs obtained today * Will re-check labs tomorrow * Continues to improve overall * Awaiting placement and resolution of social issues - Plan Plan:: Bilateral cellulitis/Stasis Dermatitis, resolved Dependant edema Small hematoma/abscess on right ramos, resolved Leukocytosis, resolved Hypoxemia, resolved S/P Right ramos I&D Gout -Completed doxycycline -Completed Keflex -Monitor leg inflammation -Decrease oral Lasix to 40 mg daily at 0600 and 20mg daily at 1400 with spironolactone 100 mg daily -Continue to monitor kidney function and electrolytes closely. Patient may be getting intravascularly volume depleted. -Discontinue Cozaar due to worsening renal function and hypotension -Given 1 day of colchicine -Patient likely has reduced intrarenal perfusion pressure and the addition of Cozaar caused worsening of the pressure. His renal function should return to baseline with the improving perfusion pressure. -40mg dose of prednisone due to gout pain Failure to thrive Hypokalemia, resolved Hyponatremia, improved Lactic Acidosis, likely resolved Medical non-compliance Hypermagnesemia likely secondary to replacement and renal insufficiency Hypoalbuminemia, unchanged Relative Hypotension -Consult CM/SW -creative services intern working on placement as patient is not safe to be discharged home alone. -Dressage Judge consult -Monitor electrolytes/magnesium and supplement as needed -On Midodrine 5 mg po TID -Fluid restriction -Asymptomatic -Continue sodium tablets -Changing diuretics/ARB as above History of ETOH abuse Hepatic encephalopathy End-stage ETOH related cirrhosis Elevated INR Elevated Bilirubin Hx/o esophageal varices Thrombocytopenia Macrocytic Normochromic Anemia Elevated serum ammonia Hyperlactatemia Umbilical hernia -Decrease Lactulose to 15mg TID as patient is complaining of significant diarrhea -Continue Lasix 40 mg in the morning and 20 mg in the afternoon -Continue spironolactone 100mg daily -Pharmacological DVT prophylaxis contraindicated -Continue folic acid, MV, thiamine supplementation -Low protein diet -Consult wood sash and frame carpenter -Due to end-stage cirrhosis we can expect BPs on the lower side -hyperlactatemia is likely 2/2 to end-stage liver disease and chronic ETOH abuse. Depression Hallucinations -Haldol 3mg at bedtime -Discontinue Effexor -Schedule melatonin to support sleep -Re-consult Dr. Powell due to continued hallucinations and depression. Tobacco use disorder -Cessation counseling at discharge -Nicotine patches- decreased to 7mg Code status: DNR/DNI PCP: Dr. Mccollum DVT prophylaxis: Pharmacological prophylaxis contraindicated due to significant esophageal varices history, Elevated INR, thrombocytopenia. Mechanical prophylaxis contraindicated due to bilateral LE cellulitis, dependant LE edema. Disposition: Patient admitted due to cellulitis, electrolyte abnormalities, failure to thrive and need for placement. Social: Patient reportedly lives in an apartment. [facility] Finish Opener i s following patient. Patient has history of leaving water running and forgetting to turn of burner. Per ED note apartment is very unkempt and there are concerns for patient safety. SW/CM consulted. Prognosis: Overall poor prognosis due to end-stage ETOH cirrhosis. LOS >96 HRS due to need for placement
[2020-08-04] MEDS: Multivitamins,Therapeutic Tab PO SCH (10:13)
[2020-08-04] MEDS: Sodium Chloride/Potassium Chloride Tab PO SCH ×2 (10:13→21:52)
[2020-08-04] MEDS: Thiamine 100 MG Tab PO SCH (10:13)
[2020-08-04] MEDS: Folic Acid 1 MG Tab PO SCH (10:14)
[2020-08-04] MEDS: Lactulose Soln 10 GM/15 ML 30 ML UD Cup PO SCH ×3 (10:14→21:50)
[2020-08-04] MEDS: Nicotine 7 MG/24 Hr Patch TRDERM SCH (10:14)
[2020-08-04] MEDS: Spironolactone 100 MG Tab PO SCH (10:14)
[2020-08-04] MEDS ORDERED: predniSONE 20 MG Tab PO ONE (12:00)
[2020-08-04] MEDS: Furosemide 20 MG Tab PO SCH (13:31)
[2020-08-04] MEDS: Haloperidol 5 MG Tab PO SCH (21:52)
[2020-08-04] MEDS: Mirtazapine 15 MG Tab PO SCH (21:52)
[2020-08-04] MEDS: Melatonin 3 MG Tab PO SCH (21:52)
[2020-08-04] MEDS: Famotidine 40 MG/5 ML Bottle PO SCH (22:36)
[2020-08-05] MEDS: Midodrine 5 MG Tab PO SCH ×3 (06:44→17:47)
[2020-08-05] MEDS: Furosemide 40 MG Tab PO SCH (06:44)
--- NOTE | 2020-08-05 07:15 | PCM.PN ---
- General Info Date of Service: 08/05/20 Admission Dx/Problem (Free Text): Admission Diagnosis/Problem Admission Diagnosis/Problem Cellulitis Subjective Update: In to see Mandeep. He is a bit more sleepy today and nursing reports patient slept hard overnight. Haldol was increased and remeron was started. Will monitor alertness and adjust meds accordingly. Otherwise he remains stable. Kidney function is improving. Continuing to await placement. Functional Status: Reports: Pain Controlled, Tolerating Diet, Ambulating, Urinating, Incentive Spirometry. Denies: New Symptoms - Review of Systems General: Reports: Weakness (improving ), Fatigue. Denies: Fever, Malaise, Chills HEENT: Reports: No Symptoms. Denies: Headaches, Sore Throat Pulmonary: Reports: No Symptoms. Denies: Shortness of Breath, Cough, Sputum, Wheezing Cardiovascular: Reports: No Symptoms. Denies: Chest Pain, Palpitations, Dyspnea on Exertion Gastrointestinal: Reports: No Symptoms. Denies: Abdominal Pain, Constipation, Diarrhea, Nausea, Vomiting Genitourinary: Reports: No Symptoms. Denies: Pain Musculoskeletal: Reports: No Symptoms Skin: Reports: No Symptoms. Denies: Cyanosis Neurological: Reports: Confusion. Denies: Difficulty Walking, Weakness, Gait Disturbance Psychiatric: Reports: Confusion, Hallucinations - Patient Data Vitals - Most Recent: Last Vital Signs Temp 96.0 F L 08/05/20 06:56 Pulse 71 08/05/20 06:42 Resp 16 08/05/20 06:56 BP 103/53 L 08/05/20 06:42 Pulse Ox 87 L 08/05/20 06:42 Weight - Most Recent: 203 lb 3.2 oz I&O - Last 24 Hours: Intake & Output 08/04/20 08/05/20 08/05/20 22:59 06:59 14:59 Intake Total 260 200 Balance 260 200 Med Orders - Current: Current Medications Acetaminophen (Tylenol) 650 mg PO Q4H PRN PRN Reason: Pain/Fever Last Admin: 07/27/20 14:13 Dose: 650 mg Documented by: Famotidine (Pepcid) 40 mg PO BEDTIME [facility] Last Admin: 08/04/20 22:36 Dose: 5 ml Documented by: Folic Acid (Folic Acid) 1 mg PO DAILY [facility] Last Admin: 08/04/20 10:14 Dose: 1 mg Documented by: Furosemide (Lasix) 40 mg PO DAILY@0600 [facility] Last Admin: 08/05/20 06:44 Dose: 40 mg Documented by: Furosemide (Lasix) 20 mg PO DAILY@1400 [facility] Last Admin: 08/04/20 13:31 Dose: 20 mg Documented by: Haloperidol (Haldol) 5 mg PO BEDTIME [facility] Last Admin: 08/04/20 21:52 Dose: 5 mg Documented by: Lactulose (Cephulac) 15 gm PO TID [facility] Last Admin: 08/04/20 21:50 Dose: 15 gm Documented by: Melatonin (Melatonin) 3 mg PO BEDTIME [facility] Last Admin: 08/04/20 21:52 Dose: 3 mg Documented by: Midodrine (Midodrine) 5 mg PO TIDAC [facility] Last Admin: 08/05/20 06:44 Dose: 5 mg Documented by: Mirtazapine (Remeron) 15 mg PO BEDTIME [facility] Last Admin: 08/04/20 21:52 Dose: 15 mg Documented by: Miscellaneous Information (Remove Patch) 0 ea TRDERM Q24H [facility] Last Admin: 08/04/20 10:18 Dose: 1 ea Documented by: Multivitamins (Thera) 1 each PO DAILY [facility] Last Admin: 08/04/20 10:13 Dose: 1 each Documented by: Nicotine (Habitrol) 7 mg TRDERM DAILY [facility] Last Admin: 08/04/20 10:14 Dose: 7 mg Documented by: Ondansetron HCl (Zofran Odt) 4 mg PO Q4H PRN PRN Reason: Nausea/Vomiting Last Admin: 07/29/20 22:22 Dose: 4 mg Documented by: Oral Electrolytes (Thermotabs) 2 each PO BID [facility] Last Admin: 08/04/20 21:52 Dose: 2 each Documented by: Oxycodone HCl (Oxycodone) 5 mg PO Q6H PRN PRN Reason: Pain (moderate 4-6) Last Admin: 08/04/20 06:56 Dose: 5 mg Documented by: Oxycodone HCl (Oxycodone) 10 mg PO Q6H PRN PRN Reason: Pain (severe 7-10) Last Admin: 08/02/20 06:52 Dose: 10 mg Documented by: Spironolactone (Aldactone) 100 mg PO DAILY [facility] Last Admin: 08/04/20 10:14 Dose: 100 mg Documented by: Thiamine HCl (Vitamin B-1) 100 mg PO DAILY [facility] Last Admin: 08/04/20 10:13 Dose: 100 mg Documented by: Discontinued Medications Alprazolam (Xanax) 1 mg PO BEDTIME ONE Stop: 07/12/20 21:01 Last Admin: 07/12/20 21:24 Dose: 1 mg Documented by: Alprazolam (Xanax) 1 mg PO BEDTIME [facility] Cephalexin (Keflex) 500 mg PO Q8H [facility] Stop: 07/27/20 06:01 Last Admin: 07/27/20 06:47 Dose: 500 mg Documented by: Colchicine (Colcrys) 1.2 mg PO ONETIME ONE Stop: 07/30/20 09:13 Last Admin: 07/30/20 10:24 Dose: 1.2 mg Documented by: Colchicine (Colcrys) 0.6 mg PO ONETIME ONE Stop: 07/30/20 11:01 Last Admin: 07/30/20 10:25 Dose: 0.6 mg Documented by: Dexamethasone (Dexamethasone) 6 mg PO Q24H [facility] Stop: 07/27/20 16:01 Last Admin: 07/19/20 15:51 Dose: 6 mg Documented by: Doxycycline Hyclate (Vibramycin) 100 mg PO BID [facility] Last Admin: 07/25/20 08:40 Dose: 100 mg Documented by: Folic Acid (Folic Acid) 1 mg PO DAILY [facility] Furosemide (Lasix) 40 mg IVPUSH NOW ONE Stop: 07/12/20 19:17 Last Admin: 07/12/20 19:38 Dose: 40 mg Documented by: Furosemide (Lasix) 40 mg IVPUSH NOW ONE Stop: 07/13/20 09:15 Last Admin: 07/13/20 09:42 Dose: 40 mg Documented by: Furosemide (Lasix) 40 mg IVPUSH DAILY [facility] Furosemide (Lasix) 20 mg IVPUSH DAILY [facility] Last Admin: 07/14/20 10:10 Dose: 20 mg Documented by: Furosemide (Lasix) 40 mg IVPUSH DAILY [facility] Last Admin: 07/24/20 08:33 Dose: 40 mg Documented by: Furosemide (Lasix) 40 mg PO DAILY [facility] Last Admin: 07/26/20 09:55 Dose: 40 mg Documented by: Furosemide (Lasix) 40 mg PO BIDDIURETIC [facility] Last Admin: 07/30/20 06:28 Dose: 40 mg Documented by: Furosemide (Lasix) 20 mg IVPUSH NOW ONE Stop: 07/26/20 11:46 Last Admin: 07/26/20 11:45 Dose: 20 mg Documented by: Haloperidol (Haldol) 2 mg PO BEDTIME [facility] Last Admin: 07/30/20 21:02 Dose: 2 mg Documented by: Haloperidol (Haldol) 3 mg PO BEDTIME [facility] Last Admin: 08/03/20 21:43 Dose: 3 mg Documented by: Sodium Chloride (Normal Saline) 1,000 mls @ 125 mls/hr IV ASDIRECTED [facility] Last Admin: 07/12/20 17:03 Dose: 125 mls/hr Documented by: Vancomycin HCl 1.5 gm/ Sodium (Chloride) 500 mls @ 250 mls/hr IV ONETIME ONE Stop: 07/12/20 19:21 Last Admin: 07/12/20 20:07 Dose: 250 mls/hr Documented by: Vancomycin HCl 1 gm/ Sodium (Chloride) 250 mls @ 250 mls/hr IV Q12H [facility] Last Admin: 07/14/20 23:00 Dose: 250 mls/hr Documented by: Ceftriaxone Sodium 2 gm/ (Sodium Chloride) 100 mls @ 200 mls/hr IV Q24H [facility] Last Admin: 07/14/20 14:38 Dose: 200 mls/hr Documented by: Sodium Chloride (Normal Saline) 1,000 mls @ 100 mls/hr IV ASDIRECTED [facility] Stop: 07/15/20 00:59 Last Admin: 07/14/20 00:04 Dose: 100 mls/hr Documented by: Vancomycin HCl 1 gm/ Sodium (Chloride) 250 mls @ 250 mls/hr IV Q24H [facility] Stop: 07/21/20 23:00 Last Admin: 07/21/20 20:20 Dose: 250 mls/hr Documented by: Ceftriaxone Sodium 2 gm/ (Sodium Chloride) 100 mls @ 200 mls/hr IV Q24H [facility] Stop: 07/21/20 17:00 Last Admin: 07/21/20 15:10 Dose: 200 mls/hr Documented by: Sodium Chloride (Normal Saline) 100 mls @ 75 mls/hr IV ASDIRECTED [facility] Stop: 07/18/20 17:00 Azithromycin 500 mg/ Sodium (Chloride) 250 mls @ 250 mls/hr IV Q24H [facility] Last Admin: 07/20/20 15:19 Dose: 250 mls/hr Documented by: Remdesivir 200 mg/ Sodium (Chloride) 250 mls @ 250 mls/hr IV ONETIME ONE Stop: 07/18/20 17:29 Last Admin: 07/18/20 17:55 Dose: 250 mls/hr Documented by: Remdesivir 100 mg/ Sodium (Chloride) 100 mls @ 100 mls/hr IV Q24H [facility] Stop: 07/22/20 17:29 Last Admin: 07/19/20 17:14 Dose: 100 mls/hr Documented by: Albumin Human (Flexbumin 25%) 12.5 gm in 50 mls @ 100 mls/hr IV ONETIME ONE Stop: 07/30/20 10:04 Last Admin: 07/30/20 10:25 Dose: 100 mls/hr Documented by: Iopamidol (Isovue-370 (76%)) 100 ml IVPUSH ONETIME ONE Stop: 07/18/20 13:38 Last Admin: 07/18/20 16:43 Dose: Not Given Documented by: Lactulose (Cephulac) 20 gm PO TID [facility] Last Admin: 07/13/20 15:46 Dose: Not Given Documented by: Lactulose (Cephulac) 20 gm PO TID [facility] Last Admin: 07/15/20 10:21 Dose: 20 gm Documented by: Lactulose (Cephulac) 30 gm PO TID [facility] Last Admin: 07/30/20 08:33 Dose: 30 gm Documented by: Lidocaine/Epinephrine (Xylocaine 1% With Epinephrine 1:100,000) 20 ml INJECT ONETIME ONE Stop: 07/20/20 13:31 Last Admin: 07/20/20 14:59 Dose: Not Given Documented by: Losartan Potassium (Cozaar) 12.5 mg PO DAILY [facility] Last Admin: 07/31/20 08:52 Dose: Not Given Documented by: Magnesium Oxide (Magnesium Oxide) 400 mg PO BID [facility] Stop: 07/21/20 23:00 Last Admin: 07/21/20 20:19 Dose: 400 mg Documented by: Magnesium Oxide (Magnesium Oxide) 800 mg PO 1100 [facility] Last Admin: 08/02/20 11:59 Dose: 800 mg Documented by: Melatonin (Melatonin) 3 mg PO BEDTIME PRN PRN Reason: insomnia Last Admin: 07/25/20 22:03 Dose: 3 mg Documented by: Miscellaneous Information (Remove Patch) 0 ea TRDERM Q24H [facility] Last Admin: 07/31/20 14:26 Dose: 1 ea Documented by: Nicotine (Habitrol) 14 mg TRDERM Q24H [facility] Last Admin: 07/31/20 14:26 Dose: 14 mg Documented by: Non-Formulary Medication (Magnesium Oxide [Magnesium Oxide]) 400 mg PO DAILY [facility] Ondansetron HCl (Zofran) 4 mg IV Q6H PRN PRN Reason: Nausea/Vomiting Ondansetron HCl (Zofran) Confirm Administered Dose 4 mg .ROUTE .STK-MED ONE Stop: 07/28/20 11:03 Last Admin: 07/28/20 12:36 Dose: Not Given Documented by: Oxycodone HCl (Oxycodone) 5 - 10 mg PO Q6H PRN PRN Reason: Pain Potassium Chloride (Klor-Con M20) 40 meq PO TID [facility] Stop: 07/14/20 09:01 Last Admin: 07/14/20 10:09 Dose: 40 meq Documented by: Prednisone (Prednisone) 40 mg PO ONETIME ONE Stop: 08/04/20 12:01 Last Admin: 08/04/20 13:31 Dose: 40 mg Documented by: Sodium Chloride (Saline Flush) 10 ml FLUSH ONETIME PRN PRN Reason: IV FLUSH Stop: 07/18/20 17:00 Spironolactone (Aldactone) 25 mg PO ONETIME ONE Stop: 07/12/20 19:18 Last Admin: 07/12/20 19:38 Dose: 25 mg Documented by: Spironolactone (Aldactone) 25 mg PO ONETIME ONE Stop: 07/13/20 09:16 Last Admin: 07/13/20 09:50 Dose: 25 mg Documented by: Spironolactone (Aldactone) 25 mg PO DAILY [facility] Spironolactone (Aldactone) 50 mg PO DAILY [facility] Last Admin: 07/15/20 10:20 Dose: 50 mg Documented by: Thiamine HCl (Vitamin B-1) 100 mg PO DAILY [facility] Vancomycin HCl (Pharmacy To Dose - Vancomycin) 1 dose .XX ASDIRECTED [facility] Stop: 07/21/20 23:00 Vancomycin HCl (Vancocin) Confirm Administered Dose 1 gm .ROUTE .STK-MED ONE Stop: 07/17/20 21:34 Last Admin: 07/17/20 23:07 Dose: Not Given Documented by: Venlafaxine HCl (Effexor) 37.5 mg PO BID [facility] - Exam Quality Assessment: No: Supplemental Oxygen, Urine Catheter, DVT Prophylaxis (contraindicated ) General: Alert, Cooperative, No Acute Distress, Other (Has been more sleepy today ). No: Oriented HEENT: Pupils Equal, Pupils Reactive, Mucous Membr. Moist/[place] Neck: Trachea Midline Lungs: Normal Respiratory Effort, Decreased Breath Sounds Cardiovascular: Regular Rate, Regular Rhythm GI/Abdominal Exam: Normal Bowel Sounds, Soft, Non-Tender, No Distention, Hernia (Male) Exam: Deferred Back Exam: Normal Inspection, Full Range of Motion Extremities: Normal Inspection, Normal Range of Motion, Non-Tender, Normal Capillary Refill, Pedal Edema Peripheral Pulses: 2+: Radial (L), Radial (R), Dorsalis Pedis (L), Dorsalis Pedis (R) Skin: Warm, Dry, Intact Neurological: No New Focal Deficit Psy/Mental Status: Alert, Hallucinations. No: Anxious, Agitated Sepsis Event Note - Evaluation Sepsis Screening Result: No Definite Risk - Focused Exam Vital Signs: Vital Signs Temp Pulse Resp BP Pulse Ox 08/05/20 06:56 96.0 F L 16 08/05/20 06:42 71 103/53 L 87 L 08/04/20 21:46 97.6 F 66 16 104/57 L 95 - Problem List & Annotations (1) Tobacco use disorder SNOMED Code(s): 081048990 Code(s): F17.200 - NICOTINE DEPENDENCE, UNSPECIFIED, UNCOMPLICATED Status: Chronic Priority: Medium Current Visit: No (2) History of alcohol abuse SNOMED Code(s): 537587493 Code(s): F10.11 - ALCOHOL ABUSE, IN REMISSION Status: Chronic Priority: Medium Current Visit: No (3) Esophageal varices without bleeding SNOMED Code(s): 46284164 Code(s): I85.00 - ESOPHAGEAL VARICES WITHOUT BLEEDING Status: Chronic Priority: Medium Current Visit: No Qualifiers: Esophageal varices type: unspecified type Qualified Code(s): I85.00 - Esophageal varices without bleeding (4) Failure to thrive SNOMED Code(s): 62034763 Code(s): XGM9448 - Status: Acute Priority: Medium Current Visit: Yes Onset Date: ~07/19/20 Qualifiers: Failure to thrive age range: in adult Qualified Code(s): R62.7 - Adult failure to thrive (5) Difficulty walking SNOMED Code(s): 859624854 Code(s): R26.2 - DIFFICULTY IN WALKING, NOT ELSEWHERE CLASSIFIED Status: Acute Priority: Low Current Visit: Yes Onset Date: ~07/19/20 (6) Medical non-compliance SNOMED Code(s): 808998527 Code(s): Z91.19 - PATIENT'S NONCOMPLIANCE W [facility] Status: Chronic Priority: High Current Visit: Yes (7) Serum ammonia increased SNOMED Code(s): 5965923 Code(s): E72.20 - DISORDER OF UREA CYCLE METABOLISM, UNSPECIFIED Status: Chronic Priority: High Current Visit: Yes (8) Anemia SNOMED Code(s): 267602873 Code(s): D64.9 - ANEMIA, UNSPECIFIED Status: Chronic Priority: High Current Visit: Yes Qualifiers: Anemia type: bone marrow failure Bone marrow failure anemia type: unspecified bone marrow failure Qualified Code(s): D61.9 - Aplastic anemia, unspecified (9) Bilateral lower leg cellulitis SNOMED Code(s): 574105931 Code(s): L03.116 - CELLULITIS OF LEFT LOWER LIMB; L03.115 - CELLULITIS OF RIGHT LOWER LIMB Status: Acute Priority: Low Current Visit: Yes Onset Date: ~07/19/20 (10) Cirrhosis of liver SNOMED Code(s): 93182232 Code(s): K74.60 - UNSPECIFIED CIRRHOSIS OF LIVER Status: Chronic Priority: High Current Visit: Yes Qualifiers: Hepatic cirrhosis type: alcoholic cirrhosis Ascites presence: with ascites Qualified Code(s): K70.31 - Alcoholic cirrhosis of liver with ascites (11) Dependent edema SNOMED Code(s): 401529092 Code(s): R60.9 - EDEMA, UNSPECIFIED Status: Acute Priority: High Current Visit: Yes (12) Elevated INR SNOMED Code(s): 812957221 Code(s): R79.1 - ABNORMAL COAGULATION PROFILE Status: Chronic Priority: Medium Current Visit: Yes (13) Hypokalemia SNOMED Code(s): 75727098 Code(s): E87.6 - HYPOKALEMIA Status: Resolved Priority: High Current Visit: Yes (14) Hyponatremia SNOMED Code(s): 43674453 Code(s): E87.1 - HYPO-OSMOLALITY AND HYPONATREMIA Status: Acute Priority: Medium Current Visit: Yes Onset Date: ~07/19/20 (15) Thrombocytopenia SNOMED Code(s): 272248346 Code(s): D69.6 - THROMBOCYTOPENIA, UNSPECIFIED Status: Chronic Priority: High Current Visit: Yes (16) Depression SNOMED Code(s): 79023835 Code(s): F32.9 - MAJOR DEPRESSIVE DISORDER, SINGLE EPISODE, UNSPECIFIED Status: Chronic Priority: Medium Current Visit: Yes Qualifiers: Depression Type: other depression Qualified Code(s): F32.89 - Other specified depressive episodes (17) Hepatic encephalopathy SNOMED Code(s): 33228178 Code(s): K72.90 - HEPATIC FAILURE, UNSPECIFIED WITHOUT COMA Status: Chronic Priority: High Current Visit: Yes (18) Lactic acidosis SNOMED Code(s): 17583246 Code(s): E87.2 - ACIDOSIS Status: Acute Priority: High Current Visit: Yes (19) Hypoxia SNOMED Code(s): 000122083 Code(s): R09.02 - HYPOXEMIA Status: Acute Priority: High Current Visit: Yes (20) Elevated d-dimer SNOMED Code(s): 228223292 Code(s): R79.89 - OTHER SPECIFIED ABNORMAL FINDINGS OF BLOOD CHEMISTRY Status: Acute Priority: High Current Visit: Yes (21) Respiratory failure SNOMED Code(s): 141161929 Code(s): J96.90 - RESPIRATORY FAILURE, UNSP, UNSP W HYPOXIA OR HYPERCAPNIA Status: Resolved Priority: High Current Visit: Yes Qualifiers: Chronicity: acute Respiratory failure complication: hypoxia Qualified Code(s): J96.01 - Acute respiratory failure with hypoxia (22) Suspected COVID-19 virus infection SNOMED Code(s): 580081897 Code(s): Z20.828 - CONTACT W AND EXPOSURE TO OTH VIRAL COMMUNICABLE DISEASES Status: Ruled-out Priority: High Current Visit: Yes (23) S/P thoracentesis SNOMED Code(s): 667819332, 31666126, 844672701 Code(s): Z98.890 - OTHER SPECIFIED POSTPROCEDURAL STATES Status: Acute Priority: Low Current Visit: Yes (24) Status post incision and drainage SNOMED Code(s): 033042326, 629255160 Code(s): Z98.890 - OTHER SPECIFIED POSTPROCEDURAL STATES Status: Acute Priority: Medium Current Visit: Yes (25) Hallucination, visual SNOMED Code(s): 30993008 Code(s): R44.1 - VISUAL HALLUCINATIONS Status: Acute Priority: Low Current Visit: Yes Onset Date: ~07/19/20 (26) Gout SNOMED Code(s): 48816836 Code(s): M10.9 - GOUT, UNSPECIFIED Status: Acute Priority: High Current Visit: Yes Qualifiers: Gout site: toe Gout etiology: unspecified cause Chronicity: acute Laterality: right Qualified Code(s): M10.9 - Gout, unspecified (27) Umbilical hernia SNOMED Code(s): 756219629 Code(s): K42.9 - UMBILICAL HERNIA WITHOUT OBSTRUCTION OR GANGRENE Status: Chronic Priority: Low Current Visit: No Qualifiers: Obstruction and gangrene presence: without obstruction or gangrene Qualified Code(s): K42.9 - Umbilical hernia without obstruction or gangrene - Problem List Review Problem List Initiated/Reviewed/Updated: Yes - My Orders Last 24 Hours: My Active Orders 08/05/20 05:11 BASIC METABOLIC PANEL,BMP [CHEM] AM CBC WITH AUTO DIFF [HEME] AM MAGNESIUM [CHEM] AM - Assessment Assessment:: 07/13/2020 - Day of Admission -64 yo Male who presents to ED on 07/12/20 with confusion and bilateral cellulitis -History of hepatic encephalopathy, End stage liver disease, ETOH abuse, Tobacco use, Esophageal varices with banding, depression, dependant edema -Patient admits to ED provider that he has not been taking his medications because he forgets -Denies any ETOH use for past 2 months (ETOH in ED was 0.00) -Kept in ED overnight due to bed shortage statewide and us being on diversion -Started on Vancomycin in ED foe cellulitis -Given lactulose, spironolactone, lasix, IV fluids, Xanax, vancomycin in ED -No WBC in ED, although likely cannot mount immunologic defense due to alcoholic bone marrow suppression -Sepsis criteria: -Bilateral cellulitis, No tachycardia, tachypnea, WBC, or fever -Hypotension likely 2/2 end stage liver failure, Lactate >2 likely 2/2 chronic ETOH abuse, Bilirubin >2 chronically, Platelets <100 chronically, INR elevated 2/2 End stage liver disease -Does not meet criteria -Per ED provider social work states patient apartment was very unkempt -Social work reports patient has been known to leave water running and burners on in apartment. Patient is being evicted. 07/14/2020 * Small improvement in cellulitis * Procalcitonin was negative at 0.05 * White count 6.1 and CRP 2.1 * Lactic acid is chronically elevated due to liver disease at 2.6. Total bilirubin elevated at 7.8 and direct bilirubin 3.8 * Oxygen requirement has increased to 4 L/min * Sodium chronically low at 131 07/15/2020 * Continued improvement in cellulitis * WBC remains WNL at 7.19 with CRP of 2.2 * Oxygen requirement has decreased to 2L * Blood cultures negative thus far * Sodium improved to 133 * Potassium 4.3 * Dr. Powell saw patient and recommends withholding patients effexor and monitoring * Patient remains quite confused 07/16/20 * Continue current treatment * Routine AM labs with Ammonia * Midodrine 5 mg po TIDAC * Remains confused with hallucinations (seeing squirrels inside his room) * May consider anti-psychotic medications if needed * Need Tele-psych consult 07/17/20 * Continue current treatment: Rocephin and Vancomycin * Routine AM labs * Offered I&D but patient refused * Wound culture on right ramos * Remains confused with hallucinations (seeing squirrels inside his room) * May consider anti-psychotic medications if needed * Need Tele-psych follow up * LOS > 96 HRS due to need for placement 07/18/20 * WBC improved to 10.41 from 11.68 * CRP 9.1 from 5.7 * Creatinine 1.4 with GFR of 51 * Requiring 6L O2 via NC * Wound culture showing no growth * MELD-Na score on admission calculated to be 29 points - 27-32% estimated 90- day mortality * D-Dimer 7.29 * BNP 1009 * INR 2.33 * CTA shows pleural effusions and ground glass opacities concerning for viral/atypical pneumonia\ * Discussed plan with Dr. Castro - will start covid-19 treatment protocol 07/19/2020 * WBC 8.31 * CRP Up to 11.4 * Ferritin 513 * LDH 475 * Procalcitonin 0.43 * Creatinine 1.5, GFR 47 * INR 2.24 * On high flow oxygen * Thoracentesis performed today by Dr. Shipley with just over 1L clear straw colored output 07/20/2020 * Echo results show: * 1. LVEF, by visual estimation, is 65-70% * 2. Hyperdynamic left ventricular systolic function * 3. Verbally normal right ventricular systolic function and size, not well visualized. * 4. The aortic valve is not well visualized. * 5. Trace mitral valve regurgitation * 6. Trace tricuspid valve regurgitation. * 7. The right ventricular systolic pressure is unable to be determined. * 8. There is a pleural effusion * WBC 9.58 * CRP 10.2 * Sodium 130 and stable * Creatinine 1.5 and GFR 47 and stable * Awaiting thoracentesis culture * VRP negative * Covid-19 negative (4th time) * Discontinued COVID-19 treatment * Discontinue isolation precautions once off of high flow 07/21/2020 * WBC 10.17 * CRP 8.4 * Sodium 130 and stable * Creatinine 1.3 and GFR 55 * S/P I&D of right ramos with Dr. Cazares on 07/20/2020 * Purulent bloody drainage * No cultures sent due to patient being on abx for several days * O2 down to 4L * Thoracentesis cultures show no growth * Continue current treatment plan * Legs continue to improve 07/22/2020 * No labs done today * Patient is stable without any complaints * He has been weaned off of oxygen * Cultures continue to be negative 07/23/2020 * Patient is back really 1 on 1 to 2L nasal cannula given oral tolerated * Otherwise he is without complaints. 07/24/2020 * Currently on 1 L nasal cannula * White count 9.6 with moderate toxic granulation, hemoglobin * No complaints. * Currently on Keflex and doxycycline 07/25/2020 * Off of oxygen today * No new complaints - still reports foot and back pain * On Keflex - doxycycline was discontinued * Serosanguineous drainage from left hip * Sodium 129 and stable * Pending placement * TALENT MANAGER evaluation on Saturday noted significant cognitive deficit. 04/17 on MOCA 07/26/2020 * Remains off of oxygen * Worsening pedal edema - weight up 14lbs on admission * Increase lasix dosing * No labs obtained today due to patient stability * Discontinue abx - completed therapy * SW continuing to work toward discharge plan 07/27/20 * Remains sable and off of oxygen * Continue increased lasix dosing * Labs remain grossly stable * Will hold off checking labs tomorrow and consider re-check * Legs edematous but overall look good * SW continues to work on discharge plan 07/28/20 * Generalized edema still noted. Continue Lasix. * No labs drawn today. * Dressing intact to right lower extremity. * Complains of pain to left great toe and fifth digit. Left great toe is reddened but there are no open areas and no drainage noted. Patient reports that he stubbed that toe, however I cannot assess the certainty of this due to the patient's cognition and lack of orientation. 07/29/2020 * Sodium down to 126 today * Fluid restriction started * Continued dressing on right lower extremity * Creatinine 1.4 and GFR 51 (stable) * Re-check BMP tomorrow * Given continued left great toe pain will check uric acid tomorrow * Remains confused * SW working on guardianship/placement. 07/30/2020 * Sodium remains 126 * Chloride 96 * Creatinine 1.3 and GFR 55 * Start low dose ARB at recommendation of Dr. Gomez * Will decrease PM lasix dose * Uric Acid 7.4 and patient complaining of toe pain * Will give colchicine 1.2mg followed by 0.6 mg * Recheck AM labs * Decreased lactulose dosing at patient request after discussion with Dr. Gomez * Remains slightly confused * Awaiting placement 07/31/2020 * Sodium improved to 127 * Potassium 3.9 * Chloride 94 * Creatine now 1.9 and GFR 36 * Kidney function likely decreased 2/2 ARB and colchicine * Minimal PO intake * Will stop ARB * Re-check AM labs including ammonia * Remains slightly confused but does remember conversations with nurse environmental engineering manager; states he feels like he is confused * Continued hallucinations * Will increase haldol dosing to 3mg at bedtime * Schedule melatonin * Dietary to continue to follow * Reports poor sleep * Thermotabs started 08/01/20 * Sodium is up to 128 today. * Creatinine 2.3 and GFR 29. * ARB has been discontinued. * Known new hallucinations reported * States discomfort to left great toe is much better * Awaiting placement. 08/02/2020 * Sodium, creatinine, and GFR are the same as yesterday, 128, 2.3, and 29, respectively. * Blood pressure has improved. * Anion gap has slightly increased to 17.4 and bicarb decreased to 20. * ABG shows respiratory alkalosis with metabolic compensation. Unknown reason at this time. * Appetite is minimal, but this appears to be chronic. * Thrombocytopenia is worse today at 76,000. 08/03/2020 * Kidney function has improved slightly with estimated GFR 32, creatinine 2.1. * Sodium slightly increased at 129. * BUN is continuing to increase at 44. * Anion gap back to normal at 13.1 * Continued dropping of his platelets had 68,000 * Bicarb improved to 23 * Magnesium elevated at 2.8 * Minimal right little toe pain. Hold off on treatment at this time, but may benefit tomorrow if toe continues to hurt by 1 dose of prednisone. * Generally patient is improving. * Awaiting placement 08/04/2020 * No labs obtained today * Will re-check labs tomorrow * Continues to improve overall * Awaiting placement and resolution of social issues 08/05/2020 * Continues to await placement * Dr. Powell re-consulted yesterday due to continued depression and hallucinations * Recommended increasing haldol to 5mg at bedtime, starting 15mg remeron at bedtime * Labs today * Hgb improved to 9.1 * Sodium stable at 129 * Magnesium improved to 2.6 * Creatinine improved to 2.0 with GFR of 34 * Continues to improve overall * Noted to be a bit more sleepy today. Monitor alertness with change in psychiatric meds * Remains confused. - Plan Plan:: Bilateral cellulitis/Stasis Dermatitis, resolved Dependant edema Small hematoma/abscess on right ramos, resolved Leukocytosis, resolved Hypoxemia, resolved S/P Right ramos I&D Gout -Completed doxycycline -Completed Keflex -Monitor leg inflammation -Decrease oral Lasix to 40 mg daily at 0600 and 20mg daily at 1400 with spironolactone 100 mg daily -Continue to monitor kidney function and electrolytes closely. Patient may be getting intravascularly volume depleted. -Discontinue Cozaar due to worsening renal function and hypotension -Given 1 day of colchicine for gout -Patient likely has reduced intrarenal perfusion pressure and the addition of Cozaar caused worsening of the pressure. His renal function should return to baseline with the improving perfusion pressure. -40mg dose of prednisone x1 dose due to gout pain Failure to thrive Hypokalemia, resolved Hyponatremia, improved Lactic Acidosis, likely resolved Medical non-compliance Hypermagnesemia likely secondary to replacement and renal insufficiency Hypoalbuminemia, unchanged Relative Hypotension -Consult CM/SW -rn social services working on placement as patient is not safe to be discharged home alone. -Commercial Construction Estimator consult -Monitor electrolytes/magnesium and supplement as needed -On Midodrine 5 mg po TID -Fluid restriction -Asymptomatic -Continue sodium tablets -Changing diuretics/ARB as above History of ETOH abuse Hepatic encephalopathy End-stage ETOH related cirrhosis Elevated INR Elevated Bilirubin Hx/o esophageal varices Thrombocytopenia Macrocytic Normochromic Anemia Elevated serum ammonia Hyperlactatemia Umbilical hernia -Decrease Lactulose to 15mg TID as patient is complaining of significant diarrhea -Continue Lasix 40 mg in the morning and 20 mg in the afternoon -Continue spironolactone 100mg daily -Pharmacological DVT prophylaxis contraindicated -Continue folic acid, MV, thiamine supplementation -Low protein diet -Consult drilling inspector -Due to end-stage cirrhosis we can expect BPs on the lower side -hyperlactatemia is likely 2/2 to end-stage liver disease and chronic ETOH abuse. Depression Hallucinations -Haldol increased to 5mg at bedtime per Dr. Powell -Start remeron 15mg at bedtime per Dr. Powell -Discontinue Effexor -Schedule melatonin to support sleep -Monitor alertness and hallucinations Tobacco use disorder -Cessation counseling at discharge -Nicotine patches- decreased to 7mg Code status: DNR/DNI PCP: Dr. Mccollum DVT prophylaxis: Pharmacological prophylaxis contraindicated due to significant esophageal varices history, Elevated INR, thrombocytopenia. Mechanical prophylaxis contraindicated due to bilateral LE cellulitis, dependant LE edema. Disposition: Patient admitted due to cellulitis, electrolyte abnormalities, failure to thrive and need for placement. Social: Patient reportedly lives in an apartment. [facility] is following patient. Patient has history of leaving water running and forgetting to turn of burner. Per ED note apartment is very unkempt and there are concerns for patient safety. SW/CM consulted. Prognosis: Overall poor prognosis due to end-stage ETOH cirrhosis. LOS >96 HRS due to need for placement
[2020-08-05] MEDS: Sodium Chloride/Potassium Chloride Tab PO SCH ×2 (08:21→22:26)
[2020-08-05] MEDS: Spironolactone 100 MG Tab PO SCH (08:21)
[2020-08-05] MEDS: Lactulose Soln 10 GM/15 ML 30 ML UD Cup PO SCH ×3 (08:22→22:25)
[2020-08-05] MEDS: Thiamine 100 MG Tab PO SCH (08:22)
[2020-08-05] MEDS: Multivitamins,Therapeutic Tab PO SCH (08:22)
[2020-08-05] MEDS: Folic Acid 1 MG Tab PO SCH (08:22)
[2020-08-05] MEDS: Nicotine 7 MG/24 Hr Patch TRDERM SCH (08:22)
[2020-08-05] MEDS: Furosemide 20 MG Tab PO SCH (13:53)
[2020-08-05] MEDS: Melatonin 3 MG Tab PO SCH (22:26)
[2020-08-05] MEDS: Famotidine 40 MG/5 ML Bottle PO SCH (22:26)
[2020-08-05] MEDS: Mirtazapine 15 MG Tab PO SCH (22:27)
[2020-08-05] MEDS: Haloperidol 5 MG Tab PO SCH (22:27)
--- NOTE | 2020-08-06 06:24 | PCM.PN ---
- General Info Date of Service: 08/06/20 Admission Dx/Problem (Free Text): Admission Diagnosis/Problem Admission Diagnosis/Problem Cellulitis Subjective Update: No overnight or significant acute issues. He slept better last night. He is a bit sedated this morning. No complaints. His renal function has slowed down since 07/31/2020. His BS is low today at 58. Functional Status: Reports: Pain Controlled, Tolerating Diet, Ambulating, Urinating, New Symptoms - Review of Systems General: Denies: Fever, Chills Pulmonary: Denies: Shortness of Breath, Cough Cardiovascular: Reports: Edema. Denies: Chest Pain Gastrointestinal: Denies: Abdominal Pain, Nausea, Vomiting Genitourinary: Denies: Incontinence Musculoskeletal: Denies: Neck Pain Skin: Denies: Pallor Neurological: Denies: Confusion Psychiatric: Denies: Depression, Anxiety, Agitation, Hallucinations - Patient Data Vitals - Most Recent: Last Vital Signs Temp 36.2 C 08/06/20 05:11 Pulse 89 08/06/20 05:11 Resp 13 08/06/20 05:11 BP 149/78 H 08/06/20 05:11 Pulse Ox 98 08/06/20 05:11 Weight - Most Recent: 91.58 kg I&O - Last 24 Hours: Intake & Output 08/05/20 08/05/20 08/06/20 14:59 22:59 06:59 Intake Total 0 120 Balance 0 120 Lab Results Last 24 Hours: Laboratory Results - last 24 hr 08/05/20 08/05/20 Range/Units 07:20 07:20 WBC 4.88 (4.23-9.07) K/mm3 RBC 2.63 L (4.63-6.08) M/mm3 Hgb 9.1 L (13.7-17.5) gm/dl Hct 26.4 L (40.1-51.0) % MCV 100.4 H (79.0-92.2) fl MCH 34.6 H (25.7-32.2) pg MCHC 34.5 (32.2-35.5) g/dl RDW Std Deviation 72.5 H (35.1-43.9) fL Plt Count 53 L (163-337) K/mm3 MPV 11.2 (9.4-12.3) fl Neut % (Auto) 80.6 H (34.0-67.9) % Lymph % (Auto) 9.2 L (21.8-53.1) % [place] % (Auto) 10.0 (5.3-12.2) % Eos % (Auto) 0 L (0.8-7.0) Baso % (Auto) 0.0 L (0.1-1.2) % Neut # (Auto) 3.93 (1.78-5.38) K/mm3 Lymph # (Auto) 0.45 L (1.32-3.57) K/mm3 [place] # (Auto) 0.49 (0.30-0.82) K/mm3 Eos # (Auto) 0.00 L (0.04-0.54) K/mm3 Baso # (Auto) 0.00 L (0.01-0.08) K/mm3 Manual Slide Review Abnormal smear Sodium 129 L (136-145) mEq/L Potassium 4.3 (3.5-5.1) mEq/L Chloride 97 L (98-107) mEq/L Carbon Dioxide 20 L (21-32) mEq/L Anion Gap 16.3 H (5-15) BUN 44 H (7-18) mg/dL Creatinine 2.0 H (0.7-1.3) mg/dL Est Cr Clr Drug Dosing 35.63 mL/min Estimated GFR (MDRD) 34 (>60) mL/min BUN/Creatinine Ratio 22.0 H (14-18) Glucose 88 (80-115) mg/dL Calcium 8.7 (8.5-10.1) mg/dL Magnesium 2.6 H (1.8-2.4) mg/dl Med Orders - Current: Current Medications Acetaminophen (Tylenol) 650 mg PO Q4H PRN PRN Reason: Pain/Fever Last Admin: 07/27/20 14:13 Dose: 650 mg Documented by: Famotidine (Pepcid) 40 mg PO BEDTIME [facility] Last Admin: 08/05/20 22:26 Dose: 5 ml Documented by: Folic Acid (Folic Acid) 1 mg PO DAILY [facility] Last Admin: 08/05/20 08:22 Dose: 1 mg Documented by: Furosemide (Lasix) 40 mg PO DAILY@0600 [facility] Last Admin: 08/05/20 06:44 Dose: 40 mg Documented by: Furosemide (Lasix) 20 mg PO DAILY@1400 [facility] Last Admin: 08/05/20 13:53 Dose: 20 mg Documented by: Haloperidol (Haldol) 5 mg PO BEDTIME [facility] Last Admin: 08/05/20 22:27 Dose: 5 mg Documented by: Lactulose (Cephulac) 15 gm PO TID [facility] Last Admin: 08/05/20 22:25 Dose: 15 gm Documented by: Melatonin (Melatonin) 3 mg PO BEDTIME [facility] Last Admin: 08/05/20 22:26 Dose: 3 mg Documented by: Midodrine (Midodrine) 5 mg PO TIDAC [facility] Last Admin: 08/05/20 17:47 Dose: 5 mg Documented by: Mirtazapine (Remeron) 15 mg PO BEDTIME [facility] Last Admin: 08/05/20 22:27 Dose: 15 mg Documented by: Miscellaneous Information (Remove Patch) 0 ea TRDERM Q24H [facility] Last Admin: 08/05/20 08:25 Dose: 1 ea Documented by: Multivitamins (Thera) 1 each PO DAILY [facility] Last Admin: 08/05/20 08:22 Dose: 1 each Documented by: Nicotine (Habitrol) 7 mg TRDERM DAILY [facility] Last Admin: 08/05/20 08:22 Dose: 7 mg Documented by: Ondansetron HCl (Zofran Odt) 4 mg PO Q4H PRN PRN Reason: Nausea/Vomiting Last Admin: 07/29/20 22:22 Dose: 4 mg Documented by: Oral Electrolytes (Thermotabs) 2 each PO BID [facility] Last Admin: 08/05/20 22:26 Dose: 2 each Documented by: Oxycodone HCl (Oxycodone) 5 mg PO Q6H PRN PRN Reason: Pain (moderate 4-6) Last Admin: 08/04/20 06:56 Dose: 5 mg Documented by: Oxycodone HCl (Oxycodone) 10 mg PO Q6H PRN PRN Reason: Pain (severe 7-10) Last Admin: 08/02/20 06:52 Dose: 10 mg Documented by: Spironolactone (Aldactone) 100 mg PO DAILY [facility] Last Admin: 08/05/20 08:21 Dose: 100 mg Documented by: Thiamine HCl (Vitamin B-1) 100 mg PO DAILY [facility] Last Admin: 08/05/20 08:22 Dose: 100 mg Documented by: Discontinued Medications Alprazolam (Xanax) 1 mg PO BEDTIME ONE Stop: 07/12/20 21:01 Last Admin: 07/12/20 21:24 Dose: 1 mg Documented by: Alprazolam (Xanax) 1 mg PO BEDTIME [facility] Cephalexin (Keflex) 500 mg PO Q8H [facility] Stop: 07/27/20 06:01 Last Admin: 07/27/20 06:47 Dose: 500 mg Documented by: Colchicine (Colcrys) 1.2 mg PO ONETIME ONE Stop: 07/30/20 09:13 Last Admin: 07/30/20 10:24 Dose: 1.2 mg Documented by: Colchicine (Colcrys) 0.6 mg PO ONETIME ONE Stop: 07/30/20 11:01 Last Admin: 07/30/20 10:25 Dose: 0.6 mg Documented by: Dexamethasone (Dexamethasone) 6 mg PO Q24H [facility] Stop: 07/27/20 16:01 Last Admin: 07/19/20 15:51 Dose: 6 mg Documented by: Doxycycline Hyclate (Vibramycin) 100 mg PO BID [facility] Last Admin: 07/25/20 08:40 Dose: 100 mg Documented by: Folic Acid (Folic Acid) 1 mg PO DAILY [facility] Furosemide (Lasix) 40 mg IVPUSH NOW ONE Stop: 07/12/20 19:17 Last Admin: 07/12/20 19:38 Dose: 40 mg Documented by: Furosemide (Lasix) 40 mg IVPUSH NOW ONE Stop: 07/13/20 09:15 Last Admin: 07/13/20 09:42 Dose: 40 mg Documented by: Furosemide (Lasix) 40 mg IVPUSH DAILY [facility] Furosemide (Lasix) 20 mg IVPUSH DAILY [facility] Last Admin: 07/14/20 10:10 Dose: 20 mg Documented by: Furosemide (Lasix) 40 mg IVPUSH DAILY [facility] Last Admin: 07/24/20 08:33 Dose: 40 mg Documented by: Furosemide (Lasix) 40 mg PO DAILY [facility] Last Admin: 07/26/20 09:55 Dose: 40 mg Documented by: Furosemide (Lasix) 40 mg PO BIDDIURETIC [facility] Last Admin: 07/30/20 06:28 Dose: 40 mg Documented by: Furosemide (Lasix) 20 mg IVPUSH NOW ONE Stop: 07/26/20 11:46 Last Admin: 07/26/20 11:45 Dose: 20 mg Documented by: Haloperidol (Haldol) 2 mg PO BEDTIME [facility] Last Admin: 07/30/20 21:02 Dose: 2 mg Documented by: Haloperidol (Haldol) 3 mg PO BEDTIME [facility] Last Admin: 08/03/20 21:43 Dose: 3 mg Documented by: Sodium Chloride (Normal Saline) 1,000 mls @ 125 mls/hr IV ASDIRECTED [facility] Last Admin: 07/12/20 17:03 Dose: 125 mls/hr Documented by: Vancomycin HCl 1.5 gm/ Sodium (Chloride) 500 mls @ 250 mls/hr IV ONETIME ONE Stop: 07/12/20 19:21 Last Admin: 07/12/20 20:07 Dose: 250 mls/hr Documented by: Vancomycin HCl 1 gm/ Sodium (Chloride) 250 mls @ 250 mls/hr IV Q12H [facility] Last Admin: 07/14/20 23:00 Dose: 250 mls/hr Documented by: Ceftriaxone Sodium 2 gm/ (Sodium Chloride) 100 mls @ 200 mls/hr IV Q24H [facility] Last Admin: 07/14/20 14:38 Dose: 200 mls/hr Documented by: Sodium Chloride (Normal Saline) 1,000 mls @ 100 mls/hr IV ASDIRECTED [facility] Stop: 07/15/20 00:59 Last Admin: 07/14/20 00:04 Dose: 100 mls/hr Documented by: Vancomycin HCl 1 gm/ Sodium (Chloride) 250 mls @ 250 mls/hr IV Q24H [facility] Stop: 07/21/20 23:00 Last Admin: 07/21/20 20:20 Dose: 250 mls/hr Documented by: Ceftriaxone Sodium 2 gm/ (Sodium Chloride) 100 mls @ 200 mls/hr IV Q24H [facility] Stop: 07/21/20 17:00 Last Admin: 07/21/20 15:10 Dose: 200 mls/hr Documented by: Sodium Chloride (Normal Saline) 100 mls @ 75 mls/hr IV ASDIRECTED [facility] Stop: 07/18/20 17:00 Azithromycin 500 mg/ Sodium (Chloride) 250 mls @ 250 mls/hr IV Q24H [facility] Last Admin: 07/20/20 15:19 Dose: 250 mls/hr Documented by: Remdesivir 200 mg/ Sodium (Chloride) 250 mls @ 250 mls/hr IV ONETIME ONE Stop: 07/18/20 17:29 Last Admin: 07/18/20 17:55 Dose: 250 mls/hr Documented by: Remdesivir 100 mg/ Sodium (Chloride) 100 mls @ 100 mls/hr IV Q24H [facility] Stop: 07/22/20 17:29 Last Admin: 07/19/20 17:14 Dose: 100 mls/hr Documented by: Albumin Human (Flexbumin 25%) 12.5 gm in 50 mls @ 100 mls/hr IV ONETIME ONE Stop: 07/30/20 10:04 Last Admin: 07/30/20 10:25 Dose: 100 mls/hr Documented by: Iopamidol (Isovue-370 (76%)) 100 ml IVPUSH ONETIME ONE Stop: 07/18/20 13:38 Last Admin: 07/18/20 16:43 Dose: Not Given Documented by: Lactulose (Cephulac) 20 gm PO TID [facility] Last Admin: 07/13/20 15:46 Dose: Not Given Documented by: Lactulose (Cephulac) 20 gm PO TID [facility] Last Admin: 07/15/20 10:21 Dose: 20 gm Documented by: Lactulose (Cephulac) 30 gm PO TID [facility] Last Admin: 07/30/20 08:33 Dose: 30 gm Documented by: Lidocaine/Epinephrine (Xylocaine 1% With Epinephrine 1:100,000) 20 ml INJECT ONETIME ONE Stop: 07/20/20 13:31 Last Admin: 07/20/20 14:59 Dose: Not Given Documented by: Losartan Potassium (Cozaar) 12.5 mg PO DAILY [facility] Last Admin: 07/31/20 08:52 Dose: Not Given Documented by: Magnesium Oxide (Magnesium Oxide) 400 mg PO BID [facility] Stop: 07/21/20 23:00 Last Admin: 07/21/20 20:19 Dose: 400 mg Documented by: Magnesium Oxide (Magnesium Oxide) 800 mg PO 1100 [facility] Last Admin: 08/02/20 11:59 Dose: 800 mg Documented by: Melatonin (Melatonin) 3 mg PO BEDTIME PRN PRN Reason: insomnia Last Admin: 07/25/20 22:03 Dose: 3 mg Documented by: Miscellaneous Information (Remove Patch) 0 ea TRDERM Q24H [facility] Last Admin: 07/31/20 14:26 Dose: 1 ea Documented by: Nicotine (Habitrol) 14 mg TRDERM Q24H [facility] Last Admin: 07/31/20 14:26 Dose: 14 mg Documented by: Non-Formulary Medication (Magnesium Oxide [Magnesium Oxide]) 400 mg PO DAILY [facility] Ondansetron HCl (Zofran) 4 mg IV Q6H PRN PRN Reason: Nausea/Vomiting Ondansetron HCl (Zofran) Confirm Administered Dose 4 mg .ROUTE .STK-MED ONE Stop: 07/28/20 11:03 Last Admin: 07/28/20 12:36 Dose: Not Given Documented by: Oxycodone HCl (Oxycodone) 5 - 10 mg PO Q6H PRN PRN Reason: Pain Potassium Chloride (Klor-Con M20) 40 meq PO TID [facility] Stop: 07/14/20 09:01 Last Admin: 07/14/20 10:09 Dose: 40 meq Documented by: Prednisone (Prednisone) 40 mg PO ONETIME ONE Stop: 08/04/20 12:01 Last Admin: 08/04/20 13:31 Dose: 40 mg Documented by: Sodium Chloride (Saline Flush) 10 ml FLUSH ONETIME PRN PRN Reason: IV FLUSH Stop: 07/18/20 17:00 Spironolactone (Aldactone) 25 mg PO ONETIME ONE Stop: 07/12/20 19:18 Last Admin: 07/12/20 19:38 Dose: 25 mg Documented by: Spironolactone (Aldactone) 25 mg PO ONETIME ONE Stop: 07/13/20 09:16 Last Admin: 07/13/20 09:50 Dose: 25 mg Documented by: Spironolactone (Aldactone) 25 mg PO DAILY [facility] Spironolactone (Aldactone) 50 mg PO DAILY [facility] Last Admin: 07/15/20 10:20 Dose: 50 mg Documented by: Thiamine HCl (Vitamin B-1) 100 mg PO DAILY [facility] Vancomycin HCl (Pharmacy To Dose - Vancomycin) 1 dose .XX ASDIRECTED [facility] Stop: 07/21/20 23:00 Vancomycin HCl (Vancocin) Confirm Administered Dose 1 gm .ROUTE .STK-MED ONE Stop: 07/17/20 21:34 Last Admin: 07/17/20 23:07 Dose: Not Given Documented by: Venlafaxine HCl (Effexor) 37.5 mg PO BID [facility] - Exam Quality Assessment: No: Supplemental Oxygen General: Alert, Cooperative, No Acute Distress, Sedated, Other (slow in response) HEENT: Pupils Equal, Pupils Reactive, Mucous Membr. Moist/[place] Neck: Supple Lungs: Normal Respiratory Effort, Decreased Breath Sounds, Rhonchi Cardiovascular: Regular Rate, Regular Rhythm GI/Abdominal Exam: Normal Bowel Sounds, Soft, Non-Tender, No Distention, No Abnormal Bruit (Male) Exam: Deferred Back Exam: Normal Inspection, Decreased Range of Motion Extremities: Normal Range of Motion, Non-Tender, Normal Capillary Refill, Pedal Edema, Limited Range of Motion, Other (right lower extremity: wrapped) Peripheral Pulses: 1+: Dorsalis Pedis (L), Dorsalis Pedis (R) Skin: Warm, Dry, Intact, Ecchymosis (all over ) Wound/Incisions: Healing Well Neurological: No New Focal Deficit. No: Normal Gait Psy/Mental Status: Other (sedated/somnolent). No: Anxious, Agitated Sepsis Event Note - Evaluation Sepsis Screening Result: No Definite Risk - Focused Exam Vital Signs: Vital Signs Temp Temp Pulse Resp BP Pulse Ox 08/06/20 05:11 36.2 C 89 13 149/78 H 98 08/05/20 22:35 36.1 C 14 108/62 94 L - Problem List Review Problem List Initiated/Reviewed/Updated: Yes - Assessment Assessment:: 07/13/2020 - Day of Admission -64 yo Male who presents to ED on 07/12/20 with confusion and bilateral cellulitis -History of hepatic encephalopathy, End stage liver disease, ETOH abuse, Tobacco use, Esophageal varices with banding, depression, dependant edema -Patient admits to ED provider that he has not been taking his medications because he forgets -Denies any ETOH use for past 2 months (ETOH in ED was 0.00) -Kept in ED overnight due to bed shortage statewide and us being on diversion -Started on Vancomycin in ED foe cellulitis -Given lactulose, spironolactone, lasix, IV fluids, Xanax, vancomycin in ED -No WBC in ED, although likely cannot mount immunologic defense due to alcoholic bone marrow suppression -Sepsis criteria: -Bilateral cellulitis, No tachycardia, tachypnea, WBC, or fever -Hypotension likely 2/2 end stage liver failure, Lactate >2 likely 2/2 chr onic ETOH abuse, Bilirubin >2 chronically, Platelets <100 chronically, INR elevated 2/2 End stage liver disease -Does not meet criteria -Per ED provider social work states patient apartment was very unkempt -Social work reports patient has been known to leave water running and burners on in apartment. Patient is being evicted. 07/14/2020 * Small improvement in cellulitis * Procalcitonin was negative at 0.05 * White count 6.1 and CRP 2.1 * Lactic acid is chronically elevated due to liver disease at 2.6. Total bilirubin elevated at 7.8 and direct bilirubin 3.8 * Oxygen requirement has increased to 4 L/min * Sodium chronically low at 131 07/15/2020 * Continued improvement in cellulitis * WBC remains WNL at 7.19 with CRP of 2.2 * Oxygen requirement has decreased to 2L * Blood cultures negative thus far * Sodium improved to 133 * Potassium 4.3 * Dr. Powell saw patient and recommends withholding patients effexor and monitoring * Patient remains quite confused 07/16/20 * Continue current treatment * Routine AM labs with Ammonia * Midodrine 5 mg po TIDAC * Remains confused with hallucinations (seeing squirrels inside his room) * May consider anti-psychotic medications if needed * Need Tele-psych consult 07/17/20 * Continue current treatment: Rocephin and Vancomycin * Routine AM labs * Offered I&D but patient refused * Wound culture on right ramos * Remains confused with hallucinations (seeing squirrels inside his room) * May consider anti-psychotic medications if needed * Need Tele-psych follow up * LOS > 96 HRS due to need for placement 07/18/20 * WBC improved to 10.41 from 11.68 * CRP 9.1 from 5.7 * Creatinine 1.4 with GFR of 51 * Requiring 6L O2 via NC * Wound culture showing no growth * MELD-Na score on admission calculated to be 29 points - 27-32% estimated 90- day mortality * D-Dimer 7.29 * BNP 1009 * INR 2.33 * CTA shows pleural effusions and ground glass opacities concerning for viral/atypical pneumonia\ * Discussed plan with Dr. Castro - will start covid-19 treatment protocol 07/19/2020 * WBC 8.31 * CRP Up to 11.4 * Ferritin 513 * LDH 475 * Procalcitonin 0.43 * Creatinine 1.5, GFR 47 * INR 2.24 * On high flow oxygen * Thoracentesis performed today by Dr. Shipley with just over 1L clear straw colored output 07/20/2020 * Echo results show: * 1. LVEF, by visual estimation, is 65-70% * 2. Hyperdynamic left ventricular systolic function * 3. Verbally normal right ventricular systolic function and size, not well visualized. * 4. The aortic valve is not well visualized. * 5. Trace mitral valve regurgitation * 6. Trace tricuspid valve regurgitation. * 7. The right ventricular systolic pressure is unable to be determined. * 8. There is a pleural effusion * WBC 9.58 * CRP 10.2 * Sodium 130 and stable * Creatinine 1.5 and GFR 47 and stable * Awaiting thoracentesis culture * VRP negative * Covid-19 negative (4th time) * Discontinued COVID-19 treatment * Discontinue isolation precautions once off of high flow 07/21/2020 * WBC 10.17 * CRP 8.4 * Sodium 130 and stable * Creatinine 1.3 and GFR 55 * S/P I&D of right ramos with Dr. Cazares on 07/20/2020 * Purulent bloody drainage * No cultures sent due to patient being on abx for several days * O2 down to 4L * Thoracentesis cultures show no growth * Continue current treatment plan * Legs continue to improve 07/22/2020 * No labs done today * Patient is stable without any complaints * He has been weaned off of oxygen * Cultures continue to be negative 07/23/2020 * Patient is back really 1 on 1 to 2L nasal cannula given oral tolerated * Otherwise he is without complaints. 07/24/2020 * Currently on 1 L nasal cannula * White count 9.6 with moderate toxic granulation, hemoglobin * No complaints. * Currently on Keflex and doxycycline 07/25/2020 * Off of oxygen today * No new complaints - still reports foot and back pain * On Keflex - doxycycline was discontinued * Serosanguineous drainage from left hip * Sodium 129 and stable * Pending placement * [employer] evaluation on Saturday noted significant cognitive deficit. 04/17 on MOCA 07/26/2020 * Remains off of oxygen * Worsening pedal edema - weight up 14lbs on admission * Increase lasix dosing * No labs obtained today due to patient stability * Discontinue abx - completed therapy * SW continuing to work toward discharge plan 07/27/20 * Remains sable and off of oxygen * Continue increased lasix dosing * Labs remain grossly stable * Will hold off checking labs tomorrow and consider re-check * Legs edematous but overall look good * SW continues to work on discharge plan 07/28/20 * Generalized edema still noted. Continue Lasix. * No labs drawn today. * Dressing intact to right lower extremity. * Complains of pain to left great toe and fifth digit. Left great toe is reddened but there are no open areas and no drainage noted. Patient reports that he stubbed that toe, however I cannot assess the certainty of this due to the patient's cognition and lack of orientation. 07/29/2020 * Sodium down to 126 today * Fluid restriction started * Continued dressing on right lower extremity * Creatinine 1.4 and GFR 51 (stable) * Re-check BMP tomorrow * Given continued left great toe pain will check uric acid tomorrow * Remains confused * SW working on guardianship/placement. 07/30/2020 * Sodium remains 126 * Chloride 96 * Creatinine 1.3 and GFR 55 * Start low dose ARB at recommendation of Dr. Gomez * Will decrease PM lasix dose * Uric Acid 7.4 and patient complaining of toe pain * Will give colchicine 1.2mg followed by 0.6 mg * Recheck AM labs * Decreased lactulose dosing at patient request after discussion with Dr. Gomez * Remains slightly confused * Awaiting placement 07/31/2020 * Sodium improved to 127 * Potassium 3.9 * Chloride 94 * Creatine now 1.9 and GFR 36 * Kidney function likely decreased 2/2 ARB and colchicine * Minimal PO intake * Will stop ARB * Re-check AM labs including ammonia * Remains slightly confused but does remember conversations with nurse manager inpatient; states he feels like he is confused * Continued hallucinations * Will increase haldol dosing to 3mg at bedtime * Schedule melatonin * Dietary to continue to follow * Reports poor sleep * Thermotabs started 08/01/20 * Sodium is up to 128 today. * Creatinine 2.3 and GFR 29. * ARB has been discontinued. * Known new hallucinations reported * States discomfort to left great toe is much better * Awaiting placement. 08/02/2020 * Sodium, creatinine, and GFR are the same as yesterday, 128, 2.3, and 29, respectively. * Blood pressure has improved. * Anion gap has slightly increased to 17.4 and bicarb decreased to 20. * ABG shows respiratory alkalosis with metabolic compensation. Unknown reason at this time. * Appetite is minimal, but this appears to be chronic. * Thrombocytopenia is worse today at 76,000. 08/03/2020 * Kidney function has improved slightly with estimated GFR 32, creatinine 2.1. * Sodium slightly increased at 129. * BUN is continuing to increase at 44. * Anion gap back to normal at 13.1 * Continued dropping of his platelets had 68,000 * Bicarb improved to 23 * Magnesium elevated at 2.8 * Minimal right little toe pain. Hold off on treatment at this time, but may benefit tomorrow if toe continues to hurt by 1 dose of prednisone. * Generally patient is improving. * Awaiting placement 08/04/2020 * No labs obtained today * Will re-check labs tomorrow * Continues to improve overall * Awaiting placement and resolution of social issues 08/05/2020 * Continues to await placement * Dr. Powell re-consulted yesterday due to continued depression and hallucinat ions * Recommended increasing haldol to 5 mg at bedtime, starting 15 mg remeron at bedtime * Labs today * Hgb improved to 9.1 * Sodium stable at 129 * Magnesium improved to 2.6 * Creatinine improved to 2.0 with GFR of 34 * Continues to improve overall * Noted to be a bit more sleepy today. Monitor alertness with change in psychiatric meds * Remains confused. 08/06/2020 * Continues to await placement * Continue current treatment * He is arousable hopefully he will be alert sometime this morning so he can have something to eat * Has persistent lower extremity edema with trending down albumin level, may benefit with albumin infusion * IV fluids 500 ml NS bolus x1 due to reduced renal function * Lasix 40 mg po daily now * Fall precautions * Continue PT/OT * Confusion: chronic encephalopathy exacerbated by psych medications that he is on right now * Routine AM Labs * Prognosis: guarded to poor 1943: Patient has been bed-bound mostly throughout the day as as a result he skipped all his meals today. We will hold remeron, haldol, and oxy for now. Repeat BMP if he needs additional fluids for hydration. - Plan Plan:: Bilateral cellulitis/Stasis Dermatitis, resolved Dependant edema, improved Small hematoma/abscess on right ramos, resolved Leukocytosis, resolved Leukocytopenia, resolved Hypoxemia, resolved S/P Right ramos I&D Gout -Completed doxycycline -Completed Keflex -Monitor leg inflammation -Changes: Lasix to 40 mg daily at 0600 and Spironolactone 100 mg daily due to worsened renal function -Continue to monitor kidney function and electrolytes closely -Given 1 day of colchicine and prednisone for gout -Patient likely has reduced intrarenal perfusion pressure and the addition of Cozaar caused worsening of the pressure. His renal function should return to baseline with the improving perfusion pressure Failure to thrive Hypokalemia, resolved Hyponatremia, improved Hypochloremia Increased AG Metabolic Acidosis, persistent Medical non-compliance Hypermagnesemia likely secondary to replacement and renal insufficiency Hypoalbuminemia, unchanged Relative Hypotension Acute Kidney Injury -Consult CM/SW -medical staff services coordinator working on placement as patient is not safe to be discharged home alone. -Classroom Technology Technician consult -Monitor electrolytes/magnesium and supplement as needed -On Midodrine 5 mg po TID -Fluid restriction to 1.8L -NS 500 ml bolus x1; he is dry due to diuretics and GI loss from lactulose -Continue sodium tablets, not sure of he benefits with oral supplement -Changing diuretics/ARB as above History of ETOH abuse Hepatic encephalopathy End-stage ETOH related cirrhosis Elevated INR Elevated Bilirubin Hx/o esophageal varices Thrombocytopenia, trending down, not on anticoagulation Macrocytic Normochromic Anemia Elevated serum ammonia Hyperlactatemia Umbilical hernia -Continue Lactulose to 15mg TID -Changed Lasix 40 mg daily due to reduced renal function -Continue spironolactone 100mg daily -Pharmacological DVT prophylaxis contraindicated -Continue folic acid, MV, thiamine supplementation -Low protein diet -Consult bailer operators supervisor -Due to end-stage cirrhosis we can expect BPs on the lower side -hyperlactatemia is likely 2/2 to end-stage liver disease and chronic ETOH abuse Depression Hallucinations -Haldol increased to 5mg at bedtime per Dr. Powell -On Remeron 15mg at bedtime per Dr. Powell -No longer of Effexor -Schedule melatonin to support sleep -Monitor alertness and hallucinations Tobacco use disorder -Cessation counseling at discharge -Nicotine patches- decreased to 7mg Code status: DNR/DNI PCP: Dr. Mccollum DVT prophylaxis: Pharmacological prophylaxis contraindicated due to significant esophageal varices history, Elevated INR, thrombocytopenia. Mechanical prophylaxis contraindicated due to bilateral LE cellulitis, dependant LE edema. Disposition: Patient admitted due to cellulitis, electrolyte abnormalities, failure to thrive and need for placement. Social: Patient reportedly lives in an apartment. [facility] is following patient. Patient has history of leaving water running and forgetting to turn of burner. Per ED note apartment is very unkempt and there are concerns for patient safety. SW/CM consulted. Prognosis: Overall poor prognosis due to end-stage ETOH cirrhosis. LOS >96 HRS due to need for placement
[2020-08-06] MEDS: Furosemide 40 MG Tab PO SCH (06:33)
[2020-08-06] MEDS: Midodrine 5 MG Tab PO SCH ×3 (06:34→17:48)
[2020-08-06] MEDS ORDERED: Sodium Chloride 0.9% 500 ML IV SCH (09:00)
[2020-08-06] MEDS ORDERED: Albumin 25% 12.5 GM/50 ML BAG IV ONE (09:14)
[2020-08-06] MEDS: Nicotine 7 MG/24 Hr Patch TRDERM SCH (09:36)
[2020-08-06] MEDS: Lactulose Soln 10 GM/15 ML 30 ML UD Cup PO SCH ×2 (09:36→14:53)
[2020-08-06] MEDS: Spironolactone 100 MG Tab PO SCH (09:36)
[2020-08-06] MEDS: Sodium Chloride/Potassium Chloride Tab PO SCH (09:37)
[2020-08-06] MEDS: Thiamine 100 MG Tab PO SCH (09:37)
[2020-08-06] MEDS: Folic Acid 1 MG Tab PO SCH (09:37)
[2020-08-06] MEDS: Multivitamins,Therapeutic Tab PO SCH (09:37)
[2020-08-07] MEDS: Midodrine 5 MG Tab PO SCH ×3 (06:43→18:11)
[2020-08-07] MEDS: Furosemide 40 MG Tab PO SCH (06:43)
[2020-08-07] MEDS ORDERED: Sodium Chloride 0.9% 1,000 ML IV SCH (08:15)
--- NOTE | 2020-08-07 08:15 | PCM.PN ---
- General Info Date of Service: 08/07/20 Admission Dx/Problem (Free Text): Admission Diagnosis/Problem Admission Diagnosis/Problem Cellulitis Subjective Update: Overnight his O2 sat dropped in the 80s. Staff had to go up on his required O2. He has not had any meals yesterday. One time bolus was ordered but unfortunately it was not given. He did however get albumin infusion yesterday. His renal panel is slightly worse this morning. His glucose is low at 40. He is partially arousable and briefly opened his eyes to me during morning round. He has no complaints. He appears sedated and talks but not clearly. Functional Status: Reports: Pain Controlled, Urinating, New Symptoms. Denies: Ambulating - Review of Systems General: Denies: Fever, Chills Pulmonary: Denies: Shortness of Breath, Cough Cardiovascular: Denies: Chest Pain Gastrointestinal: Denies: Abdominal Pain, Nausea, Vomiting Genitourinary: Denies: Incontinence Musculoskeletal: Denies: Joint Pain Skin: Denies: Rash Neurological: Reports: Weakness Psychiatric: Denies: Depression, Anxiety, Agitation, Hallucinations - Patient Data Vitals - Most Recent: Last Vital Signs Temp 36.3 C 08/06/20 21:45 Pulse 77 08/07/20 03:40 Resp 24 H 08/07/20 03:32 BP 96/48 L 08/07/20 03:32 Pulse Ox 95 08/07/20 03:40 Weight - Most Recent: 91.49 kg I&O - Last 24 Hours: Intake & Output 08/06/20 08/07/20 08/07/20 22:59 06:59 14:59 Intake Total 90 0 Balance 90 0 Lab Results Last 24 Hours: Laboratory Results - last 24 hr 08/06/20 08/07/20 Range/Units 20:05 04:50 Sodium 131 L 134 L (136-145) mEq/L Potassium 4.7 4.9 (3.5-5.1) mEq/L Chloride 100 103 (98-107) mEq/L Carbon Dioxide 19 L 20 L (21-32) mEq/L Anion Gap 16.7 H 15.9 H (5-15) BUN 51 H 57 H (7-18) mg/dL Creatinine 2.2 H 2.3 H (0.7-1.3) mg/dL Est Cr Clr Drug Dosing 32.39 30.98 mL/min Estimated GFR (MDRD) 30 29 (>60) mL/min BUN/Creatinine Ratio 23.2 H 24.8 H (14-18) Glucose 58 L 40 L (80-115) mg/dL Calcium 8.5 8.4 L (8.5-10.1) mg/dL Magnesium 2.7 H (1.8-2.4) mg/dl Total Bilirubin 8.2 H (0.2-1.0) mg/dL AST 76 H (15-37) U/L ALT 82 H (16-63) U/L Alkaline Phosphatase 87 (46-116) U/L Total Protein 5.4 L (6.4-8.2) g/dl Albumin 1.9 L (3.4-5.0) g/dl Globulin 3.5 gm/dL Albumin/Globulin Ratio 0.5 L (1-2) Med Orders - Current: Current Medications Acetaminophen (Tylenol) 650 mg PO Q4H PRN PRN Reason: Pain/Fever Last Admin: 07/27/20 14:13 Dose: 650 mg Documented by: Famotidine (Pepcid) 40 mg PO BEDTIME [facility] Last Admin: 08/05/20 22:26 Dose: 5 ml Documented by: Folic Acid (Folic Acid) 1 mg PO DAILY [facility] Last Admin: 08/06/20 09:37 Dose: 1 mg Documented by: Furosemide (Lasix) 40 mg PO DAILY@0600 [facility] Last Admin: 08/07/20 06:43 Dose: 40 mg Documented by: Haloperidol (Haldol) 5 mg PO BEDTIME [facility] Last Admin: 08/05/20 22:27 Dose: 5 mg Documented by: Sodium Chloride (Normal Saline) 1,000 mls @ 50 mls/hr IV ASDIRECTED [facility] Stop: 08/08/20 04:14 Lactulose (Cephulac) 15 gm PO TID [facility] Last Admin: 08/06/20 14:53 Dose: 15 gm Documented by: Melatonin (Melatonin) 3 mg PO BEDTIME [facility] Last Admin: 08/05/20 22:26 Dose: 3 mg Documented by: Midodrine (Midodrine) 5 mg PO TIDAC [facility] Last Admin: 08/07/20 06:43 Dose: 5 mg Documented by: Mirtazapine (Remeron) 15 mg PO BEDTIME [facility] Last Admin: 08/05/20 22:27 Dose: 15 mg Documented by: Miscellaneous Information (Remove Patch) 0 ea TRDERM Q24H [facility] Last Admin: 08/06/20 09:39 Dose: 1 ea Documented by: Multivitamins (Thera) 1 each PO DAILY [facility] Last Admin: 08/06/20 09:37 Dose: 1 each Documented by: Nicotine (Habitrol) 7 mg TRDERM DAILY [facility] Last Admin: 08/06/20 09:36 Dose: 7 mg Documented by: Ondansetron HCl (Zofran Odt) 4 mg PO Q4H PRN PRN Reason: Nausea/Vomiting Last Admin: 07/29/20 22:22 Dose: 4 mg Documented by: Oral Electrolytes (Thermotabs) 2 each PO BID [facility] Last Admin: 08/06/20 09:37 Dose: 2 each Documented by: Oxycodone HCl (Oxycodone) 5 mg PO Q6H PRN PRN Reason: Pain (moderate 4-6) Last Admin: 08/04/20 06:56 Dose: 5 mg Documented by: Oxycodone HCl (Oxycodone) 10 mg PO Q6H PRN PRN Reason: Pain (severe 7-10) Last Admin: 08/02/20 06:52 Dose: 10 mg Documented by: Spironolactone (Aldactone) 100 mg PO DAILY [facility] Last Admin: 08/06/20 09:36 Dose: 100 mg Documented by: Thiamine HCl (Vitamin B-1) 100 mg PO DAILY [facility] Last Admin: 08/06/20 09:37 Dose: 100 mg Documented by: Discontinued Medications Alprazolam (Xanax) 1 mg PO BEDTIME ONE Stop: 07/12/20 21:01 Last Admin: 07/12/20 21:24 Dose: 1 mg Documented by: Alprazolam (Xanax) 1 mg PO BEDTIME [facility] Cephalexin (Keflex) 500 mg PO Q8H [facility] Stop: 07/27/20 06:01 Last Admin: 07/27/20 06:47 Dose: 500 mg Documented by: Colchicine (Colcrys) 1.2 mg PO ONETIME ONE Stop: 07/30/20 09:13 Last Admin: 07/30/20 10:24 Dose: 1.2 mg Documented by: Colchicine (Colcrys) 0.6 mg PO ONETIME ONE Stop: 07/30/20 11:01 Last Admin: 07/30/20 10:25 Dose: 0.6 mg Documented by: Dexamethasone (Dexamethasone) 6 mg PO Q24H [facility] Stop: 07/27/20 16:01 Last Admin: 07/19/20 15:51 Dose: 6 mg Documented by: Doxycycline Hyclate (Vibramycin) 100 mg PO BID [facility] Last Admin: 07/25/20 08:40 Dose: 100 mg Documented by: Folic Acid (Folic Acid) 1 mg PO DAILY [facility] Furosemide (Lasix) 40 mg IVPUSH NOW ONE Stop: 07/12/20 19:17 Last Admin: 07/12/20 19:38 Dose: 40 mg Documented by: Furosemide (Lasix) 40 mg IVPUSH NOW ONE Stop: 07/13/20 09:15 Last Admin: 07/13/20 09:42 Dose: 40 mg Documented by: Furosemide (Lasix) 40 mg IVPUSH DAILY [facility] Furosemide (Lasix) 20 mg IVPUSH DAILY [facility] Last Admin: 07/14/20 10:10 Dose: 20 mg Documented by: Furosemide (Lasix) 40 mg IVPUSH DAILY [facility] Last Admin: 07/24/20 08:33 Dose: 40 mg Documented by: Furosemide (Lasix) 40 mg PO DAILY [facility] Last Admin: 07/26/20 09:55 Dose: 40 mg Documented by: Furosemide (Lasix) 40 mg PO BIDDIURETIC [facility] Last Admin: 07/30/20 06:28 Dose: 40 mg Documented by: Furosemide (Lasix) 20 mg IVPUSH NOW ONE Stop: 07/26/20 11:46 Last Admin: 07/26/20 11:45 Dose: 20 mg Documented by: Furosemide (Lasix) 20 mg PO DAILY@1400 [facility] Last Admin: 08/05/20 13:53 Dose: 20 mg Documented by: Haloperidol (Haldol) 2 mg PO BEDTIME [facility] Last Admin: 07/30/20 21:02 Dose: 2 mg Documented by: Haloperidol (Haldol) 3 mg PO BEDTIME [facility] Last Admin: 08/03/20 21:43 Dose: 3 mg Documented by: Sodium Chloride (Normal Saline) 1,000 mls @ 125 mls/hr IV ASDIRECTED [facility] Last Admin: 07/12/20 17:03 Dose: 125 mls/hr Documented by: Vancomycin HCl 1.5 gm/ Sodium (Chloride) 500 mls @ 250 mls/hr IV ONETIME ONE Stop: 07/12/20 19:21 Last Admin: 07/12/20 20:07 Dose: 250 mls/hr Documented by: Vancomycin HCl 1 gm/ Sodium (Chloride) 250 mls @ 250 mls/hr IV Q12H [facility] Last Admin: 07/14/20 23:00 Dose: 250 mls/hr Documented by: Ceftriaxone Sodium 2 gm/ (Sodium Chloride) 100 mls @ 200 mls/hr IV Q24H [facility] Last Admin: 07/14/20 14:38 Dose: 200 mls/hr Documented by: Sodium Chloride (Normal Saline) 1,000 mls @ 100 mls/hr IV ASDIRECTED [facility] Stop: 07/15/20 00:59 Last Admin: 07/14/20 00:04 Dose: 100 mls/hr Documented by: Vancomycin HCl 1 gm/ Sodium (Chloride) 250 mls @ 250 mls/hr IV Q24H [facility] Stop: 07/21/20 23:00 Last Admin: 07/21/20 20:20 Dose: 250 mls/hr Documented by: Ceftriaxone Sodium 2 gm/ (Sodium Chloride) 100 mls @ 200 mls/hr IV Q24H [facility] Stop: 07/21/20 17:00 Last Admin: 07/21/20 15:10 Dose: 200 mls/hr Documented by: Sodium Chloride (Normal Saline) 100 mls @ 75 mls/hr IV ASDIRECTED [facility] Stop: 07/18/20 17:00 Azithromycin 500 mg/ Sodium (Chloride) 250 mls @ 250 mls/hr IV Q24H [facility] Last Admin: 07/20/20 15:19 Dose: 250 mls/hr Documented by: Remdesivir 200 mg/ Sodium (Chloride) 250 mls @ 250 mls/hr IV ONETIME ONE Stop: 07/18/20 17:29 Last Admin: 07/18/20 17:55 Dose: 250 mls/hr Documented by: Remdesivir 100 mg/ Sodium (Chloride) 100 mls @ 100 mls/hr IV Q24H [facility] Stop: 07/22/20 17:29 Last Admin: 07/19/20 17:14 Dose: 100 mls/hr Documented by: Albumin Human (Flexbumin 25%) 12.5 gm in 50 mls @ 100 mls/hr IV ONETIME ONE Stop: 07/30/20 10:04 Last Admin: 07/30/20 10:25 Dose: 100 mls/hr Documented by: Sodium Chloride (Normal Saline) 500 mls @ 100 mls/hr IV ASDIRECTED [facility] Stop: 08/06/20 13:59 Albumin Human (Flexbumin 25%) 12.5 gm in 50 mls @ 100 mls/hr IV ONETIME ONE Stop: 08/06/20 09:43 Last Admin: 08/06/20 09:33 Dose: 100 mls/hr Documented by: Iopamidol (Isovue-370 (76%)) 100 ml IVPUSH ONETIME ONE Stop: 07/18/20 13:38 Last Admin: 07/18/20 16:43 Dose: Not Given Documented by: Lactulose (Cephulac) 20 gm PO TID [facility] Last Admin: 07/13/20 15:46 Dose: Not Given Documented by: Lactulose (Cephulac) 20 gm PO TID [facility] Last Admin: 07/15/20 10:21 Dose: 20 gm Documented by: Lactulose (Cephulac) 30 gm PO TID [facility] Last Admin: 07/30/20 08:33 Dose: 30 gm Documented by: Lidocaine/Epinephrine (Xylocaine 1% With Epinephrine 1:100,000) 20 ml INJECT ONETIME ONE Stop: 07/20/20 13:31 Last Admin: 07/20/20 14:59 Dose: Not Given Documented by: Losartan Potassium (Cozaar) 12.5 mg PO DAILY [facility] Last Admin: 07/31/20 08:52 Dose: Not Given Documented by: Magnesium Oxide (Magnesium Oxide) 400 mg PO BID [facility] Stop: 07/21/20 23:00 Last Admin: 07/21/20 20:19 Dose: 400 mg Documented by: Magnesium Oxide (Magnesium Oxide) 800 mg PO 1100 [facility] Last Admin: 08/02/20 11:59 Dose: 800 mg Documented by: Melatonin (Melatonin) 3 mg PO BEDTIME PRN PRN Reason: insomnia Last Admin: 07/25/20 22:03 Dose: 3 mg Documented by: Miscellaneous Information (Remove Patch) 0 ea TRDERM Q24H [facility] Last Admin: 07/31/20 14:26 Dose: 1 ea Documented by: Nicotine (Habitrol) 14 mg TRDERM Q24H [facility] Last Admin: 07/31/20 14:26 Dose: 14 mg Documented by: Non-Formulary Medication (Magnesium Oxide [Magnesium Oxide]) 400 mg PO DAILY [facility] Ondansetron HCl (Zofran) 4 mg IV Q6H PRN PRN Reason: Nausea/Vomiting Ondansetron HCl (Zofran) Confirm Administered Dose 4 mg .ROUTE .STK-MED ONE Stop: 07/28/20 11:03 Last Admin: 07/28/20 12:36 Dose: Not Given Documented by: Oxycodone HCl (Oxycodone) 5 - 10 mg PO Q6H PRN PRN Reason: Pain Potassium Chloride (Klor-Con M20) 40 meq PO TID [facility] Stop: 07/14/20 09:01 Last Admin: 07/14/20 10:09 Dose: 40 meq Documented by: Prednisone (Prednisone) 40 mg PO ONETIME ONE Stop: 08/04/20 12:01 Last Admin: 08/04/20 13:31 Dose: 40 mg Documented by: Sodium Chloride (Saline Flush) 10 ml FLUSH ONETIME PRN PRN Reason: IV FLUSH Stop: 07/18/20 17:00 Spironolactone (Aldactone) 25 mg PO ONETIME ONE Stop: 07/12/20 19:18 Last Admin: 07/12/20 19:38 Dose: 25 mg Documented by: Spironolactone (Aldactone) 25 mg PO ONETIME ONE Stop: 07/13/20 09:16 Last Admin: 07/13/20 09:50 Dose: 25 mg Documented by: Spironolactone (Aldactone) 25 mg PO DAILY [facility] Spironolactone (Aldactone) 50 mg PO DAILY [facility] Last Admin: 07/15/20 10:20 Dose: 50 mg Documented by: Thiamine HCl (Vitamin B-1) 100 mg PO DAILY [facility] Vancomycin HCl (Pharmacy To Dose - Vancomycin) 1 dose .XX ASDIRECTED [facility] Stop: 07/21/20 23:00 Vancomycin HCl (Vancocin) Confirm Administered Dose 1 gm .ROUTE .STK-MED ONE Stop: 07/17/20 21:34 Last Admin: 07/17/20 23:07 Dose: Not Given Documented by: Venlafaxine HCl (Effexor) 37.5 mg PO BID [facility] - Exam Quality Assessment: Supplemental Oxygen General: Sedated, Lethargic HEENT: Pupils Equal, Pupils Reactive Lungs: Normal Respiratory Effort, Decreased Breath Sounds Cardiovascular: Regular Rate, Regular Rhythm GI/Abdominal Exam: Normal Bowel Sounds, Soft, Non-Tender, No Organomegaly, No Distention, No Abnormal Bruit (Male) Exam: Deferred Back Exam: Normal Inspection, Decreased Range of Motion Extremities: Normal Inspection, Normal Range of Motion, Non-Tender, Pedal Edema, Other (mild edema on all extremities) Peripheral Pulses: 1+: Dorsalis Pedis (L), Dorsalis Pedis (R) Skin: Warm, Dry, Intact, Ecchymosis (on upper extremities), Other (right leg: wrapped with TONY) Neurological: Normal Speech, Other (not appropriate due to sedation). No: Normal Gait Psy/Mental Status: No: Anxious, Agitated, Hallucinations, Withdrawal Symptoms Sepsis Event Note - Evaluation Sepsis Screening Result: No Definite Risk - Focused Exam Vital Signs: Vital Signs Temp Pulse Resp BP Pulse Ox 08/07/20 03:40 77 95 08/07/20 03:32 83 24 H 96/48 L 08/06/20 21:45 36.3 C 78 18 89/47 L 88 L - Problem List Review Problem List Initiated/Reviewed/Updated: Yes - My Orders Last 24 Hours: My Active Orders 08/07/20 08:05 AMMONIA VENOUS [CHEM] Stat 08/07/20 08:08 Chest 1V Frontal [CR] Routine 08/07/20 08:15 Sodium Chloride 0.9% @ 50 MLS/HR(1000ml Bag) Sodium Chloride 0.9% [Normal Saline] 1,000 ml IV ASDIRECTED 08/08/20 05:11 CMP [COMPREHENSIVE METABOLIC PN,CMP] [CHEM] AM MAGNESIUM [CHEM] AM 08/09/20 05:11 CMP [COMPREHENSIVE METABOLIC PN,CMP] [CHEM] AM MAGNESIUM [CHEM] AM - Assessment Assessment:: 07/13/2020 - Day of Admission -64 yo Male who presents to ED on 07/12/20 with confusion and bilateral cellulitis -History of hepatic encephalopathy, End stage liver disease, ETOH abuse, Tobacco use, Esophageal varices with banding, depression, dependant edema -Patient admits to ED provider that he has not been taking his medications because he forgets -Denies any ETOH use for past 2 months (ETOH in ED was 0.00) -Kept in ED overnight due to bed shortage statewide and us being on diversion -Started on Vancomycin in ED foe cellulitis -Given lactulose, spironolactone, lasix, IV fluids, Xanax, vancomycin in ED -No WBC in ED, although likely cannot mount immunologic defense due to alcoholic bone marrow suppression -Sepsis criteria: -Bilateral cellulitis, No tachycardia, tachypnea, WBC, or fever -Hypotension likely 2/2 end stage liver failure, Lactate >2 likely 2/2 chronic ETOH abuse, Bilirubin >2 chronically, Platelets <100 chronically, INR elevated 2/2 End stage liver disease -Does not meet criteria -Per ED provider social work states patient apartment was very unkempt -Social work reports patient has been known to leave water running and burners on in apartment. Patient is being evicted. 07/14/2020 * Small improvement in cellulitis * Procalcitonin was negative at 0.05 * White count 6.1 and CRP 2.1 * Lactic acid is chronically elevated due to liver disease at 2.6. Total bilirubin elevated at 7.8 and direct bilirubin 3.8 * Oxygen requirement has increased to 4 L/min * Sodium chronically low at 131 07/15/2020 * Continued improvement in cellulitis * WBC remains WNL at 7.19 with CRP of 2.2 * Oxygen requirement has decreased to 2L * Blood cultures negative thus far * Sodium improved to 133 * Potassium 4.3 * Dr. Powell saw patient and recommends withholding patients effexor and monitoring * Patient remains quite confused 07/16/20 * Continue current treatment * Routine AM labs with Ammonia * Midodrine 5 mg po TIDAC * Remains confused with hallucinations (seeing squirrels inside his room) * May consider anti-psychotic medications if needed * Need Tele-psych consult 07/17/20 * Continue current treatment: Rocephin and Vancomycin * Routine AM labs * Offered I&D but patient refused * Wound culture on right ramos * Remains confused with hallucinations (seeing squirrels inside his room) * May consider anti-psychotic medications if needed * Need Tele-psych follow up * LOS > 96 HRS due to need for placement 07/18/20 * WBC improved to 10.41 from 11.68 * CRP 9.1 from 5.7 * Creatinine 1.4 with GFR of 51 * Requiring 6L O2 via NC * Wound culture showing no growth * MELD-Na score on admission calculated to be 29 points - 27-32% estimated 90- day mortality * D-Dimer 7.29 * BNP 1009 * INR 2.33 * CTA shows pleural effusions and ground glass opacities concerning for viral/atypical pneumonia\ * Discussed plan with Dr. Castro - will start covid-19 treatment protocol 07/19/2020 * WBC 8.31 * CRP Up to 11.4 * Ferritin 513 * LDH 475 * Procalcitonin 0.43 * Creatinine 1.5, GFR 47 * INR 2.24 * On high flow oxygen * Thoracentesis performed today by Dr. Shipley with just over 1L clear straw colored output 07/20/2020 * Echo results show: * 1. LVEF, by visual estimation, is 65-70% * 2. Hyperdynamic left ventricular systolic function * 3. Verbally normal right ventricular systolic function and size, not well visualized. * 4. The aortic valve is not well visualized. * 5. Trace mitral valve regurgitation * 6. Trace tricuspid valve regurgitation. * 7. The right ventricular systolic pressure is unable to be determined. * 8. There is a pleural effusion * WBC 9.58 * CRP 10.2 * Sodium 130 and stable * Creatinine 1.5 and GFR 47 and stable * Awaiting thoracentesis culture * VRP negative * Covid-19 negative (4th time) * Discontinued COVID-19 treatment * Discontinue isolation precautions once off of high flow 07/21/2020 * WBC 10.17 * CRP 8.4 * Sodium 130 and stable * Creatinine 1.3 and GFR 55 * S/P I&D of right ramos with Dr. Cazares on 07/20/2020 * Purulent bloody drainage * No cultures sent due to patient being on abx for several days * O2 down to 4L * Thoracentesis cultures show no growth * Continue current treatment plan * Legs continue to improve 07/22/2020 * No labs done today * Patient is stable without any complaints * He has been weaned off of oxygen * Cultures continue to be negative 07/23/2020 * Patient is back really 1 on 1 to 2L nasal cannula given oral tolerated * Otherwise he is without complaints. 07/24/2020 * Currently on 1 L nasal cannula * White count 9.6 with moderate toxic granulation, hemoglobin * No complaints. * Currently on Keflex and doxycycline 07/25/2020 * Off of oxygen today * No new complaints - still reports foot and back pain * On Keflex - doxycycline was discontinued * Serosanguineous drainage from left hip * Sodium 129 and stable * Pending placement * HIRED WORKER evaluation on Saturday noted significant cognitive deficit. 04/17 on MOCA 07/26/2020 * Remains off of oxygen * Worsening pedal edema - weight up 14lbs on admission * Increase lasix dosing * No labs obtained today due to patient stability * Discontinue abx - completed therapy * SW continuing to work toward discharge plan 07/27/20 * Remains sable and off of oxygen * Continue increased lasix dosing * Labs remain grossly stable * Will hold off checking labs tomorrow and consider re-check * Legs edematous but overall look good * SW continues to work on discharge plan 07/28/20 * Generalized edema still noted. Continue Lasix. * No labs drawn today. * Dressing intact to right lower extremity. * Complains of pain to left great toe and fifth digit. Left great toe is reddened but there are no open areas and no drainage noted. Patient reports that he stubbed that toe, however I cannot assess the certainty of this due to the patient's cognition and lack of orientation. 07/29/2020 * Sodium down to 126 today * Fluid restriction started * Continued dressing on right lower extremity * Creatinine 1.4 and GFR 51 (stable) * Re-check BMP tomorrow * Given continued left great toe pain will check uric acid tomorrow * Remains confused * SW working on guardianship/placement. 07/30/2020 * Sodium remains 126 * Chloride 96 * Creatinine 1.3 and GFR 55 * Start low dose ARB at recommendation of Dr. Gomez * Will decrease PM lasix dose * Uric Acid 7.4 and patient complaining of toe pain * Will give colchicine 1.2mg followed by 0.6 mg * Recheck AM labs * Decreased lactulose dosing at patient request after discussion with Dr. Gomez * Remains slightly confused * Awaiting placement 07/31/2020 * Sodium improved to 127 * Potassium 3.9 * Chloride 94 * Creatine now 1.9 and GFR 36 * Kidney function likely decreased 2/2 ARB and colchicine * Minimal PO intake * Will stop ARB * Re-check AM labs including ammonia * Remains slightly confused but does remember conversations with nurse manager mobile; states he feels like he is confused * Continued hallucinations * Will increase haldol dosing to 3mg at bedtime * Schedule melatonin * Dietary to continue to follow * Reports poor sleep * Thermotabs started 08/01/20 * Sodium is up to 128 today. * Creatinine 2.3 and GFR 29. * ARB has been discontinued. * Known new hallucinations reported * States discomfort to left great toe is much better * Awaiting placement. 08/02/2020 * Sodium, creatinine, and GFR are the same as yesterday, 128, 2.3, and 29, respectively. * Blood pressure has improved. * Anion gap has slightly increased to 17.4 and bicarb decreased to 20. * ABG shows respiratory alkalosis with metabolic compensation. Unknown reason at this time. * Appetite is minimal, but this appears to be chronic. * Thrombocytopenia is worse today at 76,000. 08/03/2020 * Kidney function has improved slightly with estimated GFR 32, creatinine 2.1. * Sodium slightly increased at 129. * BUN is continuing to increase at 44. * Anion gap back to normal at 13.1 * Continued dropping of his platelets had 68,000 * Bicarb improved to 23 * Magnesium elevated at 2.8 * Minimal right little toe pain. Hold off on treatment at this time, but may benefit tomorrow if toe continues to hurt by 1 dose of prednisone. * Generally patient is improving. * Awaiting placement 08/04/2020 * No labs obtained today * Will re-check labs tomorrow * Continues to improve overall * Awaiting placement and resolution of social issues 08/05/2020 * Continues to await placement * Dr. Powell re-consulted yesterday due to continued depression and hallucinations * Recommended increasing haldol to 5mg at bedtime, starting 15mg remeron at bedtime * Labs today * Hgb improved to 9.1 * Sodium stable at 129 * Magnesium improved to 2.6 * Creatinine improved to 2.0 with GFR of 34 * Continues to improve overall * Noted to be a bit more sleepy today. Monitor alertness with change in psychiatric meds * Remains confused. 08/06/2020 * Continues to await placement * Continue current treatment * Has persistent lower extremity edema with trending down albumin level, may benefit with albumin infusion * IV fluids 500 ml NS bolus x1 due to reduced renal function * Lasix 40 mg po daily now * Fall precautions * Continue PT/OT * Confusion: chronic encephalopathy exacerbated by psych medications that he is one * Routine AM Labs 1942: Patient has been bed-bound mostly throughout the day as as a result he skipped all his meals today. We will hold remeron, haldol, and oxy for now. Repeat BMP if he needs fluid for hydration. 08/07/2020 * Continues to await placement * CXR to r/o aspiration since O2 requirement went up * Hold BP meds: lasix and aldactone due to acute kidney injury * IS as directed and beside pulmonary exercise * Ammonia level this AM * 1 Amp of D50 x 1 * 1L NS x1 for hydration * Fall precautions * Continue PT/OT * Routine AM Labs * Prognosis overall is very poor at this point. 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 Will obtain renal U/S in AM to r/o obstructive uropathy - Plan Plan:: Bilateral cellulitis/Stasis Dermatitis, resolved Dependant edema, improved Small hematoma/abscess on right ramos, resolved Leukocytosis, resolved Leukocytopenia, resolved Hypoxemia, resolved S/P Right ramos I&D Gout -Completed doxycycline and keflex -Monitor leg inflammation -Lasix to 40 mg daily at 0600 and Spironolactone 100 mg daily will be on hold today due to reduced renal function -Continue to monitor kidney function and electrolytes closely -Given 1 day of colchicine and prednisone for gout Failure to thrive Hypokalemia, resolved Hyponatremia, improved Hypochloremia, resolved Hypoglycemia, BS of 40 Increased AG Metabolic Acidosis, persistent Medical non-compliance Hypermagnesemia likely secondary to replacement and renal insufficiency Hypoalbuminemia, unchanged Relative Hypotension Acute Kidney Injury, unchanged -Consult CM/SW -visitor services specialist working on placement as patient is not safe to be discharged home alone. -Stamp Analyst consult -Monitor electrolytes/magnesium and supplement as needed -On Midodrine 5 mg po TID -Fluid restriction to 1.8L; will once sodium is back to normal range -Hold Lactulose, lasix and aldactone due to poor oral intake and reduced renal function -Continue sodium tablets, not sure of he benefits with oral supplement -IV fluids for hydration -One Amp of D50 x 1 History of ETOH abuse Hepatic vs Metabolic encephalopathy End-stage ETOH related cirrhosis Elevated INR Elevated Bilirubin Hx/o esophageal varices Thrombocytopenia, trending down, not on anticoagulation Macrocytic Normochromic Anemia Elevated serum ammonia Hyperlactatemia Umbilical hernia -Will hold Lactulose to 15 mg TID, Lasix 40 mg daily, and Spironolactone 100 mg daily due to reduced renal function -Pharmacological DVT prophylaxis contraindicated -Continue folic acid, MV, thiamine supplementation -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 Powell- both on hold due to over sedation -No longer of Effexor -Schedule melatonin to support sleep -Monitor alertness and hallucinations Tobacco use disorder -Cessation counseling at discharge -Nicotine patches- decreased to 7mg Code status: DNR/DNI PCP: Dr. Mccollum DVT prophylaxis: Pharmacological prophylaxis contraindicated due to significant esophageal varices history, Elevated INR, thrombocytopenia. Mechanical prophylaxis contraindicated due to bilateral LE cellulitis, dependant LE edema. Disposition: Patient admitted due to cellulitis, electrolyte abnormalities, failure to thrive and need for placement. Social: Patient reportedly lives in an apartment. [facility] Program Trainer is following patient. Patient has history of leaving water running and forgetting to turn of burner. Per ED note apartment is very unkempt and there are concerns for patient safety. SW/CM consulted. Prognosis: Overall poor prognosis due to end-stage ETOH cirrhosis. LOS >96 HRS due to need for placement
[2020-08-07] MEDS ORDERED: 50% Dextrose in Water 50 ML Syringe IVPUSH ONE ×2 (08:24→12:25)
[2020-08-07] MEDS ORDERED: 50% Dextrose in Water 50 ML Syringe ONE ×2 (08:27→12:28)
[2020-08-07] MEDS: Nicotine 7 MG/24 Hr Patch TRDERM SCH (08:42)
--- NOTE | 2020-08-07 08:58 | CR ---
Chest: Portable view of the chest was obtained. Comparison: Prior chest x-ray of 07/19/20 and 07/15/20. Slight increasing density within the left base from prior study is seen. Left upper lung shows mild increased density. Right lung is fairly clear. Heart size is felt to be minimally enlarged. Tortuous thoracic aorta is seen. Prior cervical spine surgery is noted. Impression: 1. Increasing density within the left lung base from prior study most likely representing slight increasing area of atelectasis and pleural effusion. Slight increased density of the left upper chest either due to atelectasis or pneumonia. 2. Right lung appears to be clear. Diagnostic code #3
[2020-08-07] MEDS: Thiamine 100 MG Tab PO SCH (11:05)
[2020-08-07] MEDS: Folic Acid 1 MG Tab PO SCH (11:05)
[2020-08-07] MEDS: Multivitamins,Therapeutic Tab PO SCH (11:05)
[2020-08-07] MEDS: Sodium Chloride/Potassium Chloride Tab PO SCH ×2 (11:05→20:52)
[2020-08-07] MEDS ORDERED: Dextrose 5%-0.9% NaCl 1,000 ML IV SCH (12:45)
[2020-08-07] MEDS: Lactulose Soln 10 GM/15 ML 30 ML UD Cup PO SCH ×2 (14:29→20:52)
[2020-08-07] MEDS: Melatonin 3 MG Tab PO SCH (22:06)
[2020-08-07] MEDS: Haloperidol 5 MG Tab PO SCH (22:06)
[2020-08-07] MEDS: Mirtazapine 15 MG Tab PO SCH (22:06)
[2020-08-08] MEDS: Dextrose 5%-0.9% NaCl 1,000 ML IV SCH ×2 (04:20→19:00)
[2020-08-08] MEDS: Midodrine 5 MG Tab PO SCH ×3 (06:23→18:32)
--- NOTE | 2020-08-08 08:12 | PCM.PN ---
- General Info Date of Service: 08/08/20 Admission Dx/Problem (Free Text): Admission Diagnosis/Problem Admission Diagnosis/Problem Cellulitis Subjective Update: In to see Mandeep. He is lying in bed occasionally groaning. He looks at me when talking to him but does not answer any questions. Labs today were stable. Will stop sedative medications and see if mentation improves. Very poor oral intake. He is on IV fluids. Blood sugars remain stable. He has been taking his PO medications today per nursing. - Review of Systems Systems Review Comment:: Unable to obtain ROS due to patient mentation. - Patient Data Vitals - Most Recent: Last Vital Signs Temp 98.2 F 08/08/20 04:16 Pulse 88 08/08/20 04:16 Resp 18 08/08/20 04:16 BP 88/48 L 08/08/20 04:16 Pulse Ox 92 L 08/08/20 04:16 Weight - Most Recent: 198 lb 11.2 oz I&O - Last 24 Hours: Intake & Output 08/07/20 08/08/20 08/08/20 22:59 06:59 14:59 Intake Total 120 1000 Balance 120 1000 Lab Results Last 24 Hours: Laboratory Results - last 24 hr 08/07/20 08/07/20 08/07/20 Range/Units 08:26 08:55 12:20 WBC (4.23-9.07) K/mm3 RBC (4.63-6.08) M/mm3 Hgb (13.7-17.5) gm/dl Hct (40.1-51.0) % MCV (79.0-92.2) fl MCH (25.7-32.2) pg MCHC (32.2-35.5) g/dl RDW Std Deviation (35.1-43.9) fL Plt Count (163-337) K/mm3 MPV (9.4-12.3) fl Neut % (Auto) (34.0-67.9) % Lymph % (Auto) (21.8-53.1) % Donley % (Auto) (5.3-12.2) % Eos % (Auto) (0.8-7.0) Baso % (Auto) (0.1-1.2) % Neut # (Auto) (1.78-5.38) K/mm3 Lymph # (Auto) (1.32-3.57) K/mm3 Donley # (Auto) (0.30-0.82) K/mm3 Eos # (Auto) (0.04-0.54) K/mm3 Baso # (Auto) (0.01-0.08) K/mm3 Sodium (136-145) mEq/L Potassium (3.5-5.1) mEq/L Chloride (98-107) mEq/L Carbon Dioxide (21-32) mEq/L Anion Gap (5-15) BUN (7-18) mg/dL Creatinine (0.7-1.3) mg/dL Est Cr Clr Drug Dosing mL/min Estimated GFR (MDRD) (>60) mL/min BUN/Creatinine Ratio (14-18) Glucose (80-115) mg/dL POC Glucose 140 H 48 L (80-115) mg/dL Calcium (8.5-10.1) mg/dL Magnesium (1.8-2.4) mg/dl Total Bilirubin (0.2-1.0) mg/dL AST (15-37) U/L ALT (16-63) U/L Alkaline Phosphatase (46-116) U/L Ammonia 70 H (11-32) umol/L C-Reactive Protein (<1.0) mg/dL Total Protein (6.4-8.2) g/dl Albumin (3.4-5.0) g/dl Globulin gm/dL Albumin/Globulin Ratio (1-2) 08/07/20 08/07/20 08/07/20 Range/Units 12:56 16:51 18:16 WBC (4.23-9.07) K/mm3 RBC (4.63-6.08) M/mm3 Hgb (13.7-17.5) gm/dl Hct (40.1-51.0) % MCV (79.0-92.2) fl MCH (25.7-32.2) pg MCHC (32.2-35.5) g/dl RDW Std Deviation (35.1-43.9) fL Plt Count (163-337) K/mm3 MPV (9.4-12.3) fl Neut % (Auto) (34.0-67.9) % Lymph % (Auto) (21.8-53.1) % Donley % (Auto) (5.3-12.2) % Eos % (Auto) (0.8-7.0) Baso % (Auto) (0.1-1.2) % Neut # (Auto) (1.78-5.38) K/mm3 Lymph # (Auto) (1.32-3.57) K/mm3 Donley # (Auto) (0.30-0.82) K/mm3 Eos # (Auto) (0.04-0.54) K/mm3 Baso # (Auto) (0.01-0.08) K/mm3 Sodium (136-145) mEq/L Potassium (3.5-5.1) mEq/L Chloride (98-107) mEq/L Carbon Dioxide (21-32) mEq/L Anion Gap (5-15) BUN (7-18) mg/dL Creatinine (0.7-1.3) mg/dL Est Cr Clr Drug Dosing mL/min Estimated GFR (MDRD) (>60) mL/min BUN/Creatinine Ratio (14-18) Glucose (80-115) mg/dL POC Glucose 133 H 100 83 (80-115) mg/dL Calcium (8.5-10.1) mg/dL Magnesium (1.8-2.4) mg/dl Total Bilirubin (0.2-1.0) mg/dL AST (15-37) U/L ALT (16-63) U/L Alkaline Phosphatase (46-116) U/L Ammonia (11-32) umol/L C-Reactive Protein (<1.0) mg/dL Total Protein (6.4-8.2) g/dl Albumin (3.4-5.0) g/dl Globulin gm/dL Albumin/Globulin Ratio (1-2) 08/07/20 08/07/20 08/08/20 Range/Units 19:45 21:23 00:11 WBC (4.23-9.07) K/mm3 RBC (4.63-6.08) M/mm3 Hgb (13.7-17.5) gm/dl Hct (40.1-51.0) % MCV (79.0-92.2) fl MCH (25.7-32.2) pg MCHC (32.2-35.5) g/dl RDW Std Deviation (35.1-43.9) fL Plt Count (163-337) K/mm3 MPV (9.4-12.3) fl Neut % (Auto) (34.0-67.9) % Lymph % (Auto) (21.8-53.1) % Donley % (Auto) (5.3-12.2) % Eos % (Auto) (0.8-7.0) Baso % (Auto) (0.1-1.2) % Neut # (Auto) (1.78-5.38) K/mm3 Lymph # (Auto) (1.32-3.57) K/mm3 Donley # (Auto) (0.30-0.82) K/mm3 Eos # (Auto) (0.04-0.54) K/mm3 Baso # (Auto) (0.01-0.08) K/mm3 Sodium 134 L (136-145) mEq/L Potassium 4.5 (3.5-5.1) mEq/L Chloride 103 (98-107) mEq/L Carbon Dioxide 21 (21-32) mEq/L Anion Gap 14.5 (5-15) BUN 59 H (7-18) mg/dL Creatinine 2.5 H (0.7-1.3) mg/dL Est Cr Clr Drug Dosing 28.50 mL/min Estimated GFR (MDRD) 26 (>60) mL/min BUN/Creatinine Ratio 23.6 H (14-18) Glucose 85 (80-115) mg/dL POC Glucose 153 H 102 (80-115) mg/dL Calcium 8.2 L (8.5-10.1) mg/dL Magnesium (1.8-2.4) mg/dl Total Bilirubin (0.2-1.0) mg/dL AST (15-37) U/L ALT (16-63) U/L Alkaline Phosphatase (46-116) U/L Ammonia (11-32) umol/L C-Reactive Protein (<1.0) mg/dL Total Protein (6.4-8.2) g/dl Albumin (3.4-5.0) g/dl Globulin gm/dL Albumin/Globulin Ratio (1-2) 12/21/20 12/21/20 12/21/20 Range/Units 06:27 06:49 06:49 WBC 9.29 H (4.23-9.07) K/mm3 RBC 2.48 L (4.63-6.08) M/mm3 Hgb 8.5 L (13.7-17.5) gm/dl Hct 25.7 L (40.1-51.0) % MCV 103.6 H D (79.0-92.2) fl MCH 34.3 H (25.7-32.2) pg MCHC 33.1 (32.2-35.5) g/dl RDW Std Deviation 79.0 H (35.1-43.9) fL Plt Count 39 L (163-337) K/mm3 MPV 10.4 (9.4-12.3) fl Neut % (Auto) 67.7 (34.0-67.9) % Lymph % (Auto) 18.4 L (21.8-53.1) % Donley % (Auto) 11.9 (5.3-12.2) % Eos % (Auto) 1.7 (0.8-7.0) Baso % (Auto) 0.1 (0.1-1.2) % Neut # (Auto) 6.28 H (1.78-5.38) K/mm3 Lymph # (Auto) 1.71 (1.32-3.57) K/mm3 Donley # (Auto) 1.11 H (0.30-0.82) K/mm3 Eos # (Auto) 0.16 (0.04-0.54) K/mm3 Baso # (Auto) 0.01 (0.01-0.08) K/mm3 Sodium 136 (136-145) mEq/L Potassium 4.1 (3.5-5.1) mEq/L Chloride 105 (98-107) mEq/L Carbon Dioxide 21 (21-32) mEq/L Anion Gap 14.1 (5-15) BUN 57 H (7-18) mg/dL Creatinine 2.3 H (0.7-1.3) mg/dL Est Cr Clr Drug Dosing 30.98 mL/min Estimated GFR (MDRD) 29 (>60) mL/min BUN/Creatinine Ratio 24.8 H (14-18) Glucose 87 (80-115) mg/dL POC Glucose 110 (80-115) mg/dL Calcium 8.1 L (8.5-10.1) mg/dL Magnesium 2.7 H (1.8-2.4) mg/dl Total Bilirubin 7.6 H (0.2-1.0) mg/dL AST 73 H (15-37) U/L ALT 78 H (16-63) U/L Alkaline Phosphatase 91 (46-116) U/L Ammonia (11-32) umol/L C-Reactive Protein 7.5 H* (<1.0) mg/dL Total Protein 5.3 L (6.4-8.2) g/dl Albumin 1.8 L (3.4-5.0) g/dl Globulin 3.5 gm/dL Albumin/Globulin Ratio 0.5 L (1-2) Med Orders - Current: Current Medications Acetaminophen (Tylenol) 650 mg PO Q4H PRN PRN Reason: Pain/Fever Last Admin: 07/27/20 14:13 Dose: 650 mg Documented by: Famotidine (Pepcid) 40 mg PO BEDTIME [facility] Last Admin: 08/05/20 22:26 Dose: 5 ml Documented by: Folic Acid (Folic Acid) 1 mg PO DAILY [facility] Last Admin: 08/07/20 11:05 Dose: 1 mg Documented by: Furosemide (Lasix) 40 mg PO DAILY@0600 [facility] Last Admin: 08/07/20 06:43 Dose: 40 mg Documented by: Haloperidol (Haldol) 5 mg PO BEDTIME [facility] Last Admin: 08/07/20 22:06 Dose: Not Given Documented by: Dextrose/Sodium Chloride (Dextrose 5%-Normal Saline) 1,000 mls @ 75 mls/hr IV ASDIRECTED [facility] Last Admin: 08/08/20 04:20 Dose: 75 mls/hr Documented by: Lactulose (Cephulac) 15 gm PO TID [facility] Last Admin: 08/07/20 20:52 Dose: 15 gm Documented by: Melatonin (Melatonin) 3 mg PO BEDTIME [facility] Last Admin: 08/07/20 22:06 Dose: Not Given Documented by: Midodrine (Midodrine) 5 mg PO TIDAC [facility] Last Admin: 08/08/20 06:23 Dose: 5 mg Documented by: Mirtazapine (Remeron) 15 mg PO BEDTIME [facility] Last Admin: 08/07/20 22:06 Dose: Not Given Documented by: Miscellaneous Information (Remove Patch) 0 ea TRDERM Q24H [facility] Last Admin: 08/07/20 08:48 Dose: 1 ea Documented by: Multivitamins (Thera) 1 each PO DAILY [facility] Last Admin: 08/07/20 11:05 Dose: 1 each Documented by: Nicotine (Habitrol) 7 mg TRDERM DAILY [facility] Last Admin: 08/07/20 08:42 Dose: 7 mg Documented by: Ondansetron HCl (Zofran Odt) 4 mg PO Q4H PRN PRN Reason: Nausea/Vomiting Last Admin: 07/29/20 22:22 Dose: 4 mg Documented by: Oral Electrolytes (Thermotabs) 2 each PO BID [facility] Last Admin: 08/07/20 20:52 Dose: 2 each Documented by: Oxycodone HCl (Oxycodone) 5 mg PO Q6H PRN PRN Reason: Pain (moderate 4-6) Last Admin: 08/04/20 06:56 Dose: 5 mg Documented by: Oxycodone HCl (Oxycodone) 10 mg PO Q6H PRN PRN Reason: Pain (severe 7-10) Last Admin: 08/02/20 06:52 Dose: 10 mg Documented by: Spironolactone (Aldactone) 100 mg PO DAILY [facility] Last Admin: 08/06/20 09:36 Dose: 100 mg Documented by: Thiamine HCl (Vitamin B-1) 100 mg PO DAILY [facility] Last Admin: 08/07/20 11:05 Dose: 100 mg Documented by: Discontinued Medications Alprazolam (Xanax) 1 mg PO BEDTIME ONE Stop: 07/12/20 21:01 Last Admin: 07/12/20 21:24 Dose: 1 mg Documented by: Alprazolam (Xanax) 1 mg PO BEDTIME [facility] Cephalexin (Keflex) 500 mg PO Q8H [facility] Stop: 07/27/20 06:01 Last Admin: 07/27/20 06:47 Dose: 500 mg Documented by: Colchicine (Colcrys) 1.2 mg PO ONETIME ONE Stop: 07/30/20 09:13 Last Admin: 07/30/20 10:24 Dose: 1.2 mg Documented by: Colchicine (Colcrys) 0.6 mg PO ONETIME ONE Stop: 07/30/20 11:01 Last Admin: 07/30/20 10:25 Dose: 0.6 mg Documented by: Dexamethasone (Dexamethasone) 6 mg PO Q24H [facility] Stop: 07/27/20 16:01 Last Admin: 07/19/20 15:51 Dose: 6 mg Documented by: Dextrose/Water (Dextrose 50% In Water) 50 ml IVPUSH ASDIRECTED ONE Stop: 08/07/20 08:25 Last Admin: 08/07/20 08:40 Dose: 50 ml Documented by: Dextrose/Water (Dextrose 50% In Water) Confirm Administered Dose 50 ml .ROUTE .STK-MED ONE Stop: 08/07/20 08:28 Last Admin: 08/07/20 08:40 Dose: Not Given Documented by: Dextrose/Water (Dextrose 50% In Water) 50 ml IVPUSH ASDIRECTED ONE Stop: 08/07/20 12:26 Last Admin: 08/07/20 12:37 Dose: 50 ml Documented by: Dextrose/Water (Dextrose 50% In Water) Confirm Administered Dose 50 ml .ROUTE .STK-MED ONE Stop: 08/07/20 12:29 Last Admin: 08/07/20 12:30 Dose: Not Given Documented by: Doxycycline Hyclate (Vibramycin) 100 mg PO BID [facility] Last Admin: 07/25/20 08:40 Dose: 100 mg Documented by: Folic Acid (Folic Acid) 1 mg PO DAILY [facility] Furosemide (Lasix) 40 mg IVPUSH NOW ONE Stop: 07/12/20 19:17 Last Admin: 07/12/20 19:38 Dose: 40 mg Documented by: Furosemide (Lasix) 40 mg IVPUSH NOW ONE Stop: 07/13/20 09:15 Last Admin: 07/13/20 09:42 Dose: 40 mg Documented by: Furosemide (Lasix) 40 mg IVPUSH DAILY [facility] Furosemide (Lasix) 20 mg IVPUSH DAILY [facility] Last Admin: 07/14/20 10:10 Dose: 20 mg Documented by: Furosemide (Lasix) 40 mg IVPUSH DAILY [facility] Last Admin: 07/24/20 08:33 Dose: 40 mg Documented by: Furosemide (Lasix) 40 mg PO DAILY [facility] Last Admin: 07/26/20 09:55 Dose: 40 mg Documented by: Furosemide (Lasix) 40 mg PO BIDDIURETIC [facility] Last Admin: 07/30/20 06:28 Dose: 40 mg Documented by: Furosemide (Lasix) 20 mg IVPUSH NOW ONE Stop: 07/26/20 11:46 Last Admin: 07/26/20 11:45 Dose: 20 mg Documented by: Furosemide (Lasix) 20 mg PO DAILY@1400 [facility] Last Admin: 08/05/20 13:53 Dose: 20 mg Documented by: Haloperidol (Haldol) 2 mg PO BEDTIME [facility] Last Admin: 07/30/20 21:02 Dose: 2 mg Documented by: Haloperidol (Haldol) 3 mg PO BEDTIME [facility] Last Admin: 08/03/20 21:43 Dose: 3 mg Documented by: Sodium Chloride (Normal Saline) 1,000 mls @ 125 mls/hr IV ASDIRECTED [facility] Last Admin: 07/12/20 17:03 Dose: 125 mls/hr Documented by: Vancomycin HCl 1.5 gm/ Sodium (Chloride) 500 mls @ 250 mls/hr IV ONETIME ONE Stop: 07/12/20 19:21 Last Admin: 07/12/20 20:07 Dose: 250 mls/hr Documented by: Vancomycin HCl 1 gm/ Sodium (Chloride) 250 mls @ 250 mls/hr IV Q12H [facility] Last Admin: 07/14/20 23:00 Dose: 250 mls/hr Documented by: Ceftriaxone Sodium 2 gm/ (Sodium Chloride) 100 mls @ 200 mls/hr IV Q24H [facility] Last Admin: 07/14/20 14:38 Dose: 200 mls/hr Documented by: Sodium Chloride (Normal Saline) 1,000 mls @ 100 mls/hr IV ASDIRECTED [facility] Stop: 07/15/20 00:59 Last Admin: 07/14/20 00:04 Dose: 100 mls/hr Documented by: Vancomycin HCl 1 gm/ Sodium (Chloride) 250 mls @ 250 mls/hr IV Q24H [facility] Stop: 07/21/20 23:00 Last Admin: 07/21/20 20:20 Dose: 250 mls/hr Documented by: Ceftriaxone Sodium 2 gm/ (Sodium Chloride) 100 mls @ 200 mls/hr IV Q24H [facility] Stop: 07/21/20 17:00 Last Admin: 07/21/20 15:10 Dose: 200 mls/hr Documented by: Sodium Chloride (Normal Saline) 100 mls @ 75 mls/hr IV ASDIRECTED [facility] Stop: 07/18/20 17:00 Azithromycin 500 mg/ Sodium (Chloride) 250 mls @ 250 mls/hr IV Q24H [facility] Last Admin: 07/20/20 15:19 Dose: 250 mls/hr Documented by: Remdesivir 200 mg/ Sodium (Chloride) 250 mls @ 250 mls/hr IV ONETIME ONE Stop: 07/18/20 17:29 Last Admin: 07/18/20 17:55 Dose: 250 mls/hr Documented by: Remdesivir 100 mg/ Sodium (Chloride) 100 mls @ 100 mls/hr IV Q24H [facility] Stop: 07/22/20 17:29 Last Admin: 07/19/20 17:14 Dose: 100 mls/hr Documented by: Albumin Human (Flexbumin 25%) 12.5 gm in 50 mls @ 100 mls/hr IV ONETIME ONE Stop: 07/30/20 10:04 Last Admin: 07/30/20 10:25 Dose: 100 mls/hr Documented by: Sodium Chloride (Normal Saline) 500 mls @ 100 mls/hr IV ASDIRECTED [facility] Stop: 08/06/20 13:59 Albumin Human (Flexbumin 25%) 12.5 gm in 50 mls @ 100 mls/hr IV ONETIME ONE Stop: 08/06/20 09:43 Last Admin: 08/06/20 09:33 Dose: 100 mls/hr Documented by: Sodium Chloride (Normal Saline) 1,000 mls @ 50 mls/hr IV ASDIRECTED [facility] Stop: 08/08/20 04:14 Last Infusion: 08/07/20 18:39 Dose: 75 mls/hr Documented by: Dextrose/Sodium Chloride (Dextrose 5%-Normal Saline) 1,000 mls @ 50 mls/hr IV ASDIRECTED [facility] Last Admin: 08/07/20 12:48 Dose: 50 mls/hr Documented by: Iopamidol (Isovue-370 (76%)) 100 ml IVPUSH ONETIME ONE Stop: 07/18/20 13:38 Last Admin: 07/18/20 16:43 Dose: Not Given Documented by: Lactulose (Cephulac) 20 gm PO TID [facility] Last Admin: 07/13/20 15:46 Dose: Not Given Documented by: Lactulose (Cephulac) 20 gm PO TID [facility] Last Admin: 07/15/20 10:21 Dose: 20 gm Documented by: Lactulose (Cephulac) 30 gm PO TID [facility] Last Admin: 07/30/20 08:33 Dose: 30 gm Documented by: Lidocaine/Epinephrine (Xylocaine 1% With Epinephrine 1:100,000) 20 ml INJECT ONETIME ONE Stop: 07/20/20 13:31 Last Admin: 07/20/20 14:59 Dose: Not Given Documented by: Losartan Potassium (Cozaar) 12.5 mg PO DAILY [facility] Last Admin: 07/31/20 08:52 Dose: Not Given Documented by: Magnesium Oxide (Magnesium Oxide) 400 mg PO BID [facility] Stop: 07/21/20 23:00 Last Admin: 07/21/20 20:19 Dose: 400 mg Documented by: Magnesium Oxide (Magnesium Oxide) 800 mg PO 1100 [facility] Last Admin: 08/02/20 11:59 Dose: 800 mg Documented by: Melatonin (Melatonin) 3 mg PO BEDTIME PRN PRN Reason: insomnia Last Admin: 07/25/20 22:03 Dose: 3 mg Documented by: Miscellaneous Information (Remove Patch) 0 ea TRDERM Q24H [facility] Last Admin: 07/31/20 14:26 Dose: 1 ea Documented by: Nicotine (Habitrol) 14 mg TRDERM Q24H [facility] Last Admin: 07/31/20 14:26 Dose: 14 mg Documented by: Non-Formulary Medication (Magnesium Oxide [Magnesium Oxide]) 400 mg PO DAILY [facility] Ondansetron HCl (Zofran) 4 mg IV Q6H PRN PRN Reason: Nausea/Vomiting Ondansetron HCl (Zofran) Confirm Administered Dose 4 mg .ROUTE .STK-MED ONE Stop: 07/28/20 11:03 Last Admin: 07/28/20 12:36 Dose: Not Given Documented by: Oxycodone HCl (Oxycodone) 5 - 10 mg PO Q6H PRN PRN Reason: Pain Potassium Chloride (Klor-Con M20) 40 meq PO TID [facility] Stop: 07/14/20 09:01 Last Admin: 07/14/20 10:09 Dose: 40 meq Documented by: Prednisone (Prednisone) 40 mg PO ONETIME ONE Stop: 08/04/20 12:01 Last Admin: 08/04/20 13:31 Dose: 40 mg Documented by: Sodium Chloride (Saline Flush) 10 ml FLUSH ONETIME PRN PRN Reason: IV FLUSH Stop: 07/18/20 17:00 Spironolactone (Aldactone) 25 mg PO ONETIME ONE Stop: 07/12/20 19:18 Last Admin: 07/12/20 19:38 Dose: 25 mg Documented by: Spironolactone (Aldactone) 25 mg PO ONETIME ONE Stop: 07/13/20 09:16 Last Admin: 07/13/20 09:50 Dose: 25 mg Documented by: Spironolactone (Aldactone) 25 mg PO DAILY [facility] Spironolactone (Aldactone) 50 mg PO DAILY [facility] Last Admin: 07/15/20 10:20 Dose: 50 mg Documented by: Thiamine HCl (Vitamin B-1) 100 mg PO DAILY [facility] Vancomycin HCl (Pharmacy To Dose - Vancomycin) 1 dose .XX ASDIRECTED [facility] Stop: 07/21/20 23:00 Vancomycin HCl (Vancocin) Confirm Administered Dose 1 gm .ROUTE .STK-MED ONE Stop: 07/17/20 21:34 Last Admin: 07/17/20 23:07 Dose: Not Given Documented by: Venlafaxine HCl (Effexor) 37.5 mg PO BID [facility] - Exam Quality Assessment: Supplemental Oxygen (2L). No: Urine Catheter, DVT Prophylaxis (Contraindicated ) General: Sedated, Lethargic HEENT: Pupils Equal, Pupils Reactive Neck: Supple, Trachea Midline Lungs: Normal Respiratory Effort, Decreased Breath Sounds Cardiovascular: Regular Rate, Regular Rhythm GI/Abdominal Exam: Normal Bowel Sounds, Soft, Non-Tender, No Distention (Male) Exam: Deferred Extremities: Normal Range of Motion, Pedal Edema, Leg Pain Skin: Warm, Dry, Intact Wound/Incisions: Drainage (lower extremities ) Neurological: No New Focal Deficit Psy/Mental Status: Depressed Sepsis Event Note - Evaluation Sepsis Screening Result: No Definite Risk - Focused Exam Vital Signs: Vital Signs Temp Pulse Resp BP Pulse Ox 08/08/20 04:16 98.2 F 88 18 88/48 L 92 L 08/08/20 00:15 97.7 F 87 20 97/62 91 L 08/07/20 20:51 97.7 F 24 H 102/55 L 91 L - Problem List & Annotations (1) Tobacco use disorder SNOMED Code(s): 089952142 Code(s): F17.200 - NICOTINE DEPENDENCE, UNSPECIFIED, UNCOMPLICATED Status: Chronic Priority: Medium Current Visit: No (2) History of alcohol abuse SNOMED Code(s): 955986049 Code(s): F10.11 - ALCOHOL ABUSE, IN REMISSION Status: Chronic Priority: Medium Current Visit: No (3) Esophageal varices without bleeding SNOMED Code(s): 75644184 Code(s): I85.00 - ESOPHAGEAL VARICES WITHOUT BLEEDING Status: Chronic Priority: Medium Current Visit: No Qualifiers: Esophageal varices type: unspecified type Qualified Code(s): I85.00 - Esophageal varices without bleeding (4) Failure to thrive SNOMED Code(s): 45881593 Code(s): ZXB2890 - Status: Acute Priority: Medium Current Visit: Yes Onset Date: ~07/19/20 Qualifiers: Failure to thrive age range: in adult Qualified Code(s): R62.7 - Adult failure to thrive (5) Difficulty walking SNOMED Code(s): 312806156 Code(s): R26.2 - DIFFICULTY IN WALKING, NOT ELSEWHERE CLASSIFIED Status: Acute Priority: Low Current Visit: Yes Onset Date: ~07/19/20 (6) Medical non-compliance SNOMED Code(s): 202332954 Code(s): Z91.19 - PATIENT'S NONCOMPLIANCE W OTH MEDICAL TREATMENT AND REGIMEN Status: Chronic Priority: High Current Visit: Yes (7) Serum ammonia increased SNOMED Code(s): 2627797 Code(s): E72.20 - DISORDER OF UREA CYCLE METABOLISM, UNSPECIFIED Status: Chronic Priority: High Current Visit: Yes (8) Anemia SNOMED Code(s): 185966638 Code(s): D64.9 - ANEMIA, UNSPECIFIED Status: Chronic Priority: High Current Visit: Yes Qualifiers: Anemia type: bone marrow failure Bone marrow failure anemia type: unspecified bone marrow failure Qualified Code(s): D61.9 - Aplastic anemia, unspecified (9) Bilateral lower leg cellulitis SNOMED Code(s): 772729402 Code(s): L03.116 - CELLULITIS OF LEFT LOWER LIMB; L03.115 - CELLULITIS OF RIGHT LOWER LIMB Status: Acute Priority: Low Current Visit: Yes Onset Date: ~07/19/20 (10) Cirrhosis of liver SNOMED Code(s): 40814662 Code(s): K74.60 - UNSPECIFIED CIRRHOSIS OF LIVER Status: Chronic Priority: High Current Visit: Yes Qualifiers: Hepatic cirrhosis type: alcoholic cirrhosis Ascites presence: with ascites Qualified Code(s): K70.31 - Alcoholic cirrhosis of liver with ascites (11) Dependent edema SNOMED Code(s): 390767610 Code(s): R60.9 - EDEMA, UNSPECIFIED Status: Acute Priority: High Current Visit: Yes (12) Elevated INR SNOMED Code(s): 918976132 Code(s): R79.1 - ABNORMAL COAGULATION PROFILE Status: Chronic Priority: Medium Current Visit: Yes (13) Hypokalemia SNOMED Code(s): 43726205 Code(s): E87.6 - HYPOKALEMIA Status: Resolved Priority: High Current Visit: Yes (14) Hyponatremia SNOMED Code(s): 60788847 Code(s): E87.1 - HYPO-OSMOLALITY AND HYPONATREMIA Status: Acute Priority: Medium Current Visit: Yes Onset Date: ~07/19/20 (15) Thrombocytopenia SNOMED Code(s): 956644184 Code(s): D69.6 - THROMBOCYTOPENIA, UNSPECIFIED Status: Chronic Priority: High Current Visit: Yes (16) Depression SNOMED Code(s): 49004904 Code(s): F32.9 - MAJOR DEPRESSIVE DISORDER, SINGLE EPISODE, UNSPECIFIED Status: Chronic Priority: Medium Current Visit: Yes Qualifiers: Depression Type: other depression Qualified Code(s): F32.89 - Other specified depressive episodes (17) Hepatic encephalopathy SNOMED Code(s): 66521706 Code(s): K72.90 - HEPATIC FAILURE, UNSPECIFIED WITHOUT COMA Status: Chronic Priority: High Current Visit: Yes (18) Lactic acidosis SNOMED Code(s): 33270469 Code(s): E87.2 - ACIDOSIS Status: Acute Priority: High Current Visit: Yes (19) Hypoxia SNOMED Code(s): 791346033 Code(s): R09.02 - HYPOXEMIA Status: Acute Priority: High Current Visit: Yes (20) Elevated d-dimer SNOMED Code(s): 176929891 Code(s): R79.89 - OTHER SPECIFIED ABNORMAL FINDINGS OF BLOOD CHEMISTRY Status: Acute Priority: High Current Visit: Yes (21) Respiratory failure SNOMED Code(s): 627969522 Code(s): J96.90 - RESPIRATORY FAILURE, UNSP, UNSP W HYPOXIA OR HYPERCAPNIA Status: Resolved Priority: High Current Visit: Yes Qualifiers: Chronicity: acute Respiratory failure complication: hypoxia Qualified Code(s): J96.01 - Acute respiratory failure with hypoxia (22) Suspected COVID-19 virus infection SNOMED Code(s): 153568167 Code(s): Z20.828 - CONTACT W AND EXPOSURE TO OTH VIRAL COMMUNICABLE DISEASES Status: Ruled-out Priority: High Current Visit: Yes (23) S/P thoracentesis SNOMED Code(s): 812184924, 41648820, 279791889 Code(s): Z98.890 - OTHER SPECIFIED POSTPROCEDURAL STATES Status: Acute Priority: Low Current Visit: Yes (24) Status post incision and drainage SNOMED Code(s): 339961116, 285642415 Code(s): Z98.890 - OTHER SPECIFIED POSTPROCEDURAL STATES Status: Acute Priority: Medium Current Visit: Yes (25) Hallucination, visual SNOMED Code(s): 83071770 Code(s): R44.1 - VISUAL HALLUCINATIONS Status: Acute Priority: Low Current Visit: Yes Onset Date: ~07/19/20 (26) Gout SNOMED Code(s): 65729199 Code(s): M10.9 - GOUT, UNSPECIFIED Status: Acute Priority: High Current Visit: Yes Qualifiers: Gout site: toe Gout etiology: unspecified cause Chronicity: acute Laterality: right Qualified Code(s): M10.9 - Gout, unspecified (27) Umbilical hernia SNOMED Code(s): 980557760 Code(s): K42.9 - UMBILICAL HERNIA WITHOUT OBSTRUCTION OR GANGRENE Status: Chronic Priority: Low Current Visit: No Qualifiers: Obstruction and gangrene presence: without obstruction or gangrene Qualified Code(s): K42.9 - Umbilical hernia without obstruction or gangrene - Problem List Review Problem List Initiated/Reviewed/Updated: Yes - Assessment Assessment:: 07/13/2020 - Day of Admission -64 yo Male who presents to ED on 07/12/20 with confusion and bilateral cellulitis -History of hepatic encephalopathy, End stage liver disease, ETOH abuse, Tobacco use, Esophageal varices with banding, depression, dependant edema -Patient admits to ED provider that he has not been taking his medications because he forgets -Denies any ETOH use for past 2 months (ETOH in ED was 0.00) -Kept in ED overnight due to bed shortage statewide and us being on diversion -Started on Vancomycin in ED foe cellulitis -Given lactulose, spironolactone, lasix, IV fluids, Xanax, vancomycin in ED -No WBC in ED, although likely cannot mount immunologic defense due to alcoholic bone marrow suppression -Sepsis criteria: -Bilateral cellulitis, No tachycardia, tachypnea, WBC, or fever -Hypotension likely 2/2 end stage liver failure, Lactate >2 likely 2/2 chronic ETOH abuse, Bilirubin >2 chronically, Platelets <100 chronically, INR elevated 2/2 End stage liver disease -Does not meet criteria -Per ED provider social work states patient apartment was very unkempt -Social work reports patient has been known to leave water running and burners on in apartment. Patient is being evicted. 07/14/2020 * Small improvement in cellulitis * Procalcitonin was negative at 0.05 * White count 6.1 and CRP 2.1 * Lactic acid is chronically elevated due to liver disease at 2.6. Total bilirubin elevated at 7.8 and direct bilirubin 3.8 * Oxygen requirement has increased to 4 L/min * Sodium chronically low at 131 07/15/2020 * Continued improvement in cellulitis * WBC remains WNL at 7.19 with CRP of 2.2 * Oxygen requirement has decreased to 2L * Blood cultures negative thus far * Sodium improved to 133 * Potassium 4.3 * Dr. Powell saw patient and recommends withholding patients effexor and mon itoring * Patient remains quite confused 07/16/20 * Continue current treatment * Routine AM labs with Ammonia * Midodrine 5 mg po TIDAC * Remains confused with hallucinations (seeing squirrels inside his room) * May consider anti-psychotic medications if needed * Need Tele-psych consult 07/17/20 * Continue current treatment: Rocephin and Vancomycin * Routine AM labs * Offered I&D but patient refused * Wound culture on right ramos * Remains confused with hallucinations (seeing squirrels inside his room) * May consider anti-psychotic medications if needed * Need Tele-psych follow up * LOS > 96 HRS due to need for placement 07/18/20 * WBC improved to 10.41 from 11.68 * CRP 9.1 from 5.7 * Creatinine 1.4 with GFR of 51 * Requiring 6L O2 via NC * Wound culture showing no growth * MELD-Na score on admission calculated to be 29 points - 27-32% estimated 90- day mortality * D-Dimer 7.29 * BNP 1009 * INR 2.33 * CTA shows pleural effusions and ground glass opacities concerning for viral/atypical pneumonia\ * Discussed plan with Dr. Castro - will start covid-19 treatment protocol 07/19/2020 * WBC 8.31 * CRP Up to 11.4 * Ferritin 513 * LDH 475 * Procalcitonin 0.43 * Creatinine 1.5, GFR 47 * INR 2.24 * On high flow oxygen * Thoracentesis performed today by Dr. Shipley with just over 1L clear straw colored output 07/20/2020 * Echo results show: * 1. LVEF, by visual estimation, is 65-70% * 2. Hyperdynamic left ventricular systolic function * 3. Verbally normal right ventricular systolic function and size, not well visualized. * 4. The aortic valve is not well visualized. * 5. Trace mitral valve regurgitation * 6. Trace tricuspid valve regurgitation. * 7. The right ventricular systolic pressure is unable to be determined. * 8. There is a pleural effusion * WBC 9.58 * CRP 10.2 * Sodium 130 and stable * Creatinine 1.5 and GFR 47 and stable * Awaiting thoracentesis culture * VRP negative * Covid-19 negative (4th time) * Discontinued COVID-19 treatment * Discontinue isolation precautions once off of high flow 07/21/2020 * WBC 10.17 * CRP 8.4 * Sodium 130 and stable * Creatinine 1.3 and GFR 55 * S/P I&D of right ramos with Dr. Cazares on 07/20/2020 * Purulent bloody drainage * No cultures sent due to patient being on abx for several days * O2 down to 4L * Thoracentesis cultures show no growth * Continue current treatment plan * Legs continue to improve 07/22/2020 * No labs done today * Patient is stable without any complaints * He has been weaned off of oxygen * Cultures continue to be negative 07/23/2020 * Patient is back really 1 on 1 to 2L nasal cannula given oral tolerated * Otherwise he is without complaints. 07/24/2020 * Currently on 1 L nasal cannula * White count 9.6 with moderate toxic granulation, hemoglobin * No complaints. * Currently on Keflex and doxycycline 07/25/2020 * Off of oxygen today * No new complaints - still reports foot and back pain * On Keflex - doxycycline was discontinued * Serosanguineous drainage from left hip * Sodium 129 and stable * Pending placement * DATA ENTRY SPECIALIST evaluation on Saturday noted significant cognitive deficit. 04/17 on MOCA 07/26/2020 * Remains off of oxygen * Worsening pedal edema - weight up 14lbs on admission * Increase lasix dosing * No labs obtained today due to patient stability * Discontinue abx - completed therapy * SW continuing to work toward discharge plan 07/27/20 * Remains sable and off of oxygen * Continue increased lasix dosing * Labs remain grossly stable * Will hold off checking labs tomorrow and consider re-check * Legs edematous but overall look good * PASHA continues to work on discharge plan 07/28/20 * Generalized edema still noted. Continue Lasix. * No labs drawn today. * Dressing intact to right lower extremity. * Complains of pain to left great toe and fifth digit. Left great toe is reddened but there are no open areas and no drainage noted. Patient reports that he stubbed that toe, however I cannot assess the certainty of this due to the patient's cognition and lack of orientation. 07/29/2020 * Sodium down to 126 today * Fluid restriction started * Continued dressing on right lower extremity * Creatinine 1.4 and GFR 51 (stable) * Re-check BMP tomorrow * Given continued left great toe pain will check uric acid tomorrow * Remains confused * SW working on guardianship/placement. 07/30/2020 * Sodium remains 126 * Chloride 96 * Creatinine 1.3 and GFR 55 * Start low dose ARB at recommendation of Dr. Gomez * Will decrease PM lasix dose * Uric Acid 7.4 and patient complaining of toe pain * Will give colchicine 1.2mg followed by 0.6 mg * Recheck AM labs * Decreased lactulose dosing at patient request after discussion with Dr. Gomez * Remains slightly confused * Awaiting placement 07/31/2020 * Sodium improved to 127 * Potassium 3.9 * Chloride 94 * Creatine now 1.9 and GFR 36 * Kidney function likely decreased 2/2 ARB and colchicine * Minimal PO intake * Will stop ARB * Re-check AM labs including ammonia * Remains slightly confused but does remember conversations with nurse yard manager; states he feels like he is confused * Continued hallucinations * Will increase haldol dosing to 3mg at bedtime * Schedule melatonin * Dietary to continue to follow * Reports poor sleep * Thermotabs started 08/01/20 * Sodium is up to 128 today. * Creatinine 2.3 and GFR 29. * ARB has been discontinued. * Known new hallucinations reported * States discomfort to left great toe is much better * Awaiting placement. 08/02/2020 * Sodium, creatinine, and GFR are the same as yesterday, 128, 2.3, and 29, respectively. * Blood pressure has improved. * Anion gap has slightly increased to 17.4 and bicarb decreased to 20. * ABG shows respiratory alkalosis with metabolic compensation. Unknown reason at this time. * Appetite is minimal, but this appears to be chronic. * Thrombocytopenia is worse today at 76,000. 08/03/2020 * Kidney function has improved slightly with estimated GFR 32, creatinine 2.1. * Sodium slightly increased at 129. * BUN is continuing to increase at 44. * Anion gap back to normal at 13.1 * Continued dropping of his platelets had 68,000 * Bicarb improved to 23 * Magnesium elevated at 2.8 * Minimal right little toe pain. Hold off on treatment at this time, but may benefit tomorrow if toe continues to hurt by 1 dose of prednisone. * Generally patient is improving. * Awaiting placement 08/04/2020 * No labs obtained today * Will re-check labs tomorrow * Continues to improve overall * Awaiting placement and resolution of social issues 08/05/2020 * Continues to await placement * Dr. Powell re-consulted yesterday due to continued depression and hallucinations * Recommended increasing haldol to 5mg at bedtime, starting 15mg remeron at bedtime * Labs today * Hgb improved to 9.1 * Sodium stable at 129 * Magnesium improved to 2.6 * Creatinine improved to 2.0 with GFR of 34 * Continues to improve overall * Noted to be a bit more sleepy today. Monitor alertness with change in psychiatric meds * Remains confused. 08/06/2020 * Continues to await placement * Continue current treatment * Has persistent lower extremity edema with trending down albumin level, may benefit with albumin infusion * IV fluids 500 ml NS bolus x1 due to reduced renal function * Lasix 40 mg po daily now * Fall precautions * Continue PT/OT * Confusion: chronic encephalopathy exacerbated by psych medications that he is one * Routine AM Labs 1942: Patient has been bed-bound mostly throughout the day as as a result he skipped all his meals today. We will hold remeron, haldol, and oxy for now. Repeat BMP if he needs fluid for hydration. 08/07/2020 * Continues to await placement * CXR to r/o aspiration since O2 requirement went up * Hold BP meds: lasix and aldactone due to acute kidney injury * IS as directed and beside pulmonary exercise * Ammonia level this AM * 1 Amp of D50 x 1 * 1L NS x1 for hydration * Fall precautions * Continue PT/OT * Routine AM Labs 2052: Repeat renal panel is no better despite of him being on IV fluids for hydration and off diuretic. Will obtain renal U/S in AM to r/o obstructive uropathy 08/08/2020 * Continues to await placement * Guardianship pending * Weaning down oxygen - currently on 2L * Continue to hold lasix and aldactone * Will discontinue haldol and Remeron today due to continued oversedation - consider resuming haldol at lower dose once more alert * Continue IV hydration * Labs today * WBC 9.29 * Hgb 8.5 * Sodium 136 * Creatinine 2.3 * GFR 29 * Magnesium 2.7 * Bilirubin 7.6 * CRP 7.5 * Albumin 1.8 * Repeat ammonia tomorrow * AM labs tomorrow - Plan Plan:: Bilateral cellulitis/Stasis Dermatitis, resolved Dependant edema, improved Small hematoma/abscess on right ramos, resolved Leukocytosis, resolved Leukocytopenia, resolved Hypoxemia, resolved S/P Right ramos I&D Gout -Completed doxycycline and keflex -Monitor leg inflammation -Lasix to 40 mg daily at 0600 and Spironolactone 100 mg daily will be on hold today due to reduced renal function -resume tomorrow -Continue to monitor kidney function and electrolytes closely -Given 1 day of colchicine and prednisone for gout Failure to thrive Hypokalemia, resolved Hyponatremia, improved Hypochloremia, resolved Hypoglycemia, BS of 40 Increased AG Metabolic Acidosis, persistent Medical non-compliance Hypermagnesemia likely secondary to replacement and renal insufficiency Hypoalbuminemia, unchanged Relative Hypotension Acute Kidney Injury, unchanged -Consult CM/SW -procurement services manager working on placement as patient is not safe to be discharged home alone. -Loan Secretary consult -Monitor electrolytes/magnesium and supplement as needed -On Midodrine 5 mg po TID -Fluid restriction to 1.8L; will once sodium is back to normal range -Hold lasix and aldactone due to poor oral intake and reduced renal function - resume tomorrow -Continue lactulose -Discontinue sodium tablets -IV fluids for hydration -Renal artery US pending History of ETOH abuse Hepatic vs Metabolic encephalopathy End-stage ETOH related cirrhosis Elevated INR Elevated Bilirubin Hx/o esophageal varices Thrombocytopenia, trending down, not on anticoagulation Macrocytic Normochromic Anemia Elevated serum ammonia Hyperlactatemia Umbilical hernia -Will hold Lasix 40 mg daily, and Spironolactone 100 mg daily due to reduced renal function -Continue lactulose -Pharmacological DVT prophylaxis contraindicated -Continue folic acid, MV, thiamine supplementation -Consult post secondary professional -Due to end-stage cirrhosis we can expect BPs on the lower side -Hyperlactatemia is likely 2/2 to end-stage liver disease and chronic ETOH abuse Depression Hallucinations -Haldol increased to 5mg at bedtime and Remeron 15mg at bedtime per Dr. Powell- both on hold due to over sedation -No longer of Effexor -Schedule melatonin to support sleep -Monitor alertness and hallucinations Tobacco use disorder -Cessation counseling at discharge -Nicotine patches- decreased to 7mg Code status: DNR/DNI PCP: Dr. Mccollum DVT prophylaxis: Pharmacological prophylaxis contraindicated due to significant esophageal varices history, Elevated INR, thrombocytopenia. Mechanical prophylaxis contraindicated due to bilateral LE cellulitis, dependant LE edema. Disposition: Patient admitted due to cellulitis, electrolyte abnormalities, failure to thrive and need for placement. Social: Patient reportedly lives in an apartment. [facility] is following patient. Patient has history of leaving water running and forgetting to turn of burner. Per ED note apartment is very unkempt and there are concerns for patient safety. SW/CM consulted. Prognosis: Overall poor prognosis due to end-stage ETOH cirrhosis. LOS >96 HRS due to need for placement
[2020-08-08] MEDS: Ondansetron 4 MG Tab.DIS PO PRN (09:39)
[2020-08-08] MEDS: Folic Acid 1 MG Tab PO SCH (09:40)
[2020-08-08] MEDS: Sodium Chloride/Potassium Chloride Tab PO SCH (09:40)
[2020-08-08] MEDS: Thiamine 100 MG Tab PO SCH (09:40)
[2020-08-08] MEDS: Multivitamins,Therapeutic Tab PO SCH (09:40)
[2020-08-08] MEDS: Nicotine 7 MG/24 Hr Patch TRDERM SCH (09:40)
[2020-08-08] MEDS: Lactulose Soln 10 GM/15 ML 30 ML UD Cup PO SCH ×3 (09:41→20:44)
--- NOTE | 2020-08-08 11:06 | US ---
Renal ultrasound: Multiple real-time images of the kidneys were obtained. Ascites is identified. Resistivity indices are increased within both kidneys. No hydronephrosis or mass is appreciated. Right kidney length: 12.5 cm Left kidney length: 10.5 cm Impression: 1. Ascites. 2. Elevated resistivity indices compatible with medical renal disease. 3. No additional abnormality is appreciated. Diagnostic code #3
[2020-08-08] MEDS: Famotidine 40 MG/5 ML Bottle PO SCH (20:34)
[2020-08-08] MEDS ORDERED: Haloperidol 1 MG Tab PO SCH (21:00)
[2020-08-08] MEDS ORDERED: Midodrine 5 MG Tab PO ONE (21:20)
[2020-08-08] MEDS: Melatonin 3 MG Tab PO SCH (21:33)
[2020-08-09] MEDS: Dextrose 5%-0.9% NaCl 1,000 ML IV SCH (05:53)
[2020-08-09] MEDS ORDERED: 50% Dextrose in Water 50 ML Syringe ONE (06:32)
[2020-08-09] MEDS: Midodrine 5 MG Tab PO SCH ×2 (06:40→12:20)
[2020-08-09] MEDS ORDERED: 50% Dextrose in Water 50 ML Syringe IVPUSH PRN (06:40)
--- NOTE | 2020-08-09 08:13 | PCM.PN ---
- General Info Date of Service: 08/09/20 Admission Dx/Problem (Free Text): Admission Diagnosis/Problem Admission Diagnosis/Problem Cellulitis Subjective Update: In to see vika. He will groan but refuses to open his eyes when spoken to. Creatinine is 3.2 today. CXR shows worsening atelectasis. Worsening bilateral lower extremity edema with leakage of serosanguineous fluid from right leg. Abdomen is quite distended. Patient looks very uncomfortable. Patient has had no p.o. intake. Nursing has been having difficulty getting the patient to take his medications. Ammonia is 108. Lactulose switched from p.o. to rectal. IV push morphine started for comfort as patient appears uncomfortable and is unable to take p.o. oxycodone. Dr. Castro at bedside to discuss plan of care. Decision was made to give patient 80 mg IV push Lasix as nursing reports patient has had minimal urine output. IV fluids are running. Patient has stridorous snore. RT will deep suction. Overall patient doing very poorly and appears to have given up. Ethics committee meeting called as patient does not have a guardian and is not in the mental state to competently discuss and make medical decisions. Ethics committee agrees that we have exhausted treatment options and are likely causing more harm and pain to the patient at this point. Decision is reached to make patient comfort care, stop all treatment including lab draws, oxygen therapy, home medications, physical therapy, and provide pain and anxiety medications. Patient therefore placed on comfort cares and orders changes noted. Ethics committee did request that if the patient appears to be very close to expiring the on-call clinical consultant be contacted to pray with the patient and this was communicated to nursing. Functional Status: Denies: Pain Controlled (Patient moaning ), Tolerating Diet, Ambulating, Urinating (minimal) - Review of Systems General: Denies: Fever Gastrointestinal: Denies: Diarrhea, Vomiting Skin: Reports: Jaundice Systems Review Comment:: Is obtunded and unable to answer ROS questions. - Patient Data Vitals - Most Recent: Last Vital Signs Temp 97.5 F 08/09/20 04:02 Pulse 82 08/09/20 04:02 Resp 20 08/09/20 04:02 BP 100/60 08/09/20 04:18 Pulse Ox 88 L 08/09/20 04:02 Weight - Most Recent: 201 lb 4.8 oz I&O - Last 24 Hours: Intake & Output 08/08/20 08/09/20 08/09/20 22:59 06:59 14:59 Intake Total 400 950 Balance 400 950 Lab Results Last 24 Hours: Laboratory Results - last 24 hr 08/08/20 08/08/20 08/08/20 Range/Units 06:49 06:49 11:32 WBC (4.23-9.07) K/mm3 RBC (4.63-6.08) M/mm3 Hgb (13.7-17.5) gm/dl Hct (40.1-51.0) % MCV (79.0-92.2) fl MCH (25.7-32.2) pg MCHC (32.2-35.5) g/dl RDW Std Deviation (35.1-43.9) fL Plt Count (163-337) K/mm3 MPV (9.4-12.3) fl Neut % (Auto) (34.0-67.9) % Lymph % (Auto) (21.8-53.1) % [place] % (Auto) (5.3-12.2) % Eos % (Auto) (0.8-7.0) Baso % (Auto) (0.1-1.2) % Neut # (Auto) (1.78-5.38) K/mm3 Lymph # (Auto) (1.32-3.57) K/mm3 [place] # (Auto) (0.30-0.82) K/mm3 Eos # (Auto) (0.04-0.54) K/mm3 Baso # (Auto) (0.01-0.08) K/mm3 Manual Slide Review Abnormal smear ESR 10 (0-15) mm/hr POC Glucose 109 (80-115) mg/dL 08/08/20 08/09/20 08/09/20 Range/Units 17:18 00:24 06:29 WBC (4.23-9.07) K/mm3 RBC (4.63-6.08) M/mm3 Hgb (13.7-17.5) gm/dl Hct (40.1-51.0) % MCV (79.0-92.2) fl MCH (25.7-32.2) pg MCHC (32.2-35.5) g/dl RDW Std Deviation (35.1-43.9) fL Plt Count (163-337) K/mm3 MPV (9.4-12.3) fl Neut % (Auto) (34.0-67.9) % Lymph % (Auto) (21.8-53.1) % [place] % (Auto) (5.3-12.2) % Eos % (Auto) (0.8-7.0) Baso % (Auto) (0.1-1.2) % Neut # (Auto) (1.78-5.38) K/mm3 Lymph # (Auto) (1.32-3.57) K/mm3 [place] # (Auto) (0.30-0.82) K/mm3 Eos # (Auto) (0.04-0.54) K/mm3 Baso # (Auto) (0.01-0.08) K/mm3 Manual Slide Review ESR (0-15) mm/hr POC Glucose 122 H 117 H 76 L (80-115) mg/dL 08/09/20 08/09/20 Range/Units 06:50 06:55 WBC 10.97 H (4.23-9.07) K/mm3 RBC 2.36 L (4.63-6.08) M/mm3 Hgb 8.0 L (13.7-17.5) gm/dl Hct 25.3 L (40.1-51.0) % MCV 107.2 H D (79.0-92.2) fl MCH 33.9 H (25.7-32.2) pg MCHC 31.6 L (32.2-35.5) g/dl RDW Std Deviation 83.3 H (35.1-43.9) fL Plt Count 43 L (163-337) K/mm3 MPV 11.5 (9.4-12.3) fl Neut % (Auto) 88.4 H (34.0-67.9) % Lymph % (Auto) 7.5 L (21.8-53.1) % [place] % (Auto) 3.1 L (5.3-12.2) % Eos % (Auto) 0.1 L (0.8-7.0) Baso % (Auto) 0.1 (0.1-1.2) % Neut # (Auto) 9.70 H (1.78-5.38) K/mm3 Lymph # (Auto) 0.82 L (1.32-3.57) K/mm3 [place] # (Auto) 0.34 (0.30-0.82) K/mm3 Eos # (Auto) 0.01 L (0.04-0.54) K/mm3 Baso # (Auto) 0.01 (0.01-0.08) K/mm3 Manual Slide Review ESR (0-15) mm/hr POC Glucose 198 H (80-115) mg/dL Med Orders - Current: Current Medications Acetaminophen (Tylenol) 650 mg PO Q4H PRN PRN Reason: Pain/Fever Last Admin: 07/27/20 14:13 Dose: 650 mg Documented by: Dextrose/Water (Dextrose 50% In Water) 50 ml IVPUSH ASDIRECTED PRN PRN Reason: Blood Glucose Famotidine (Pepcid) 40 mg PO BEDTIME [facility] Last Admin: 08/08/20 20:34 Dose: Not Given Documented by: Folic Acid (Folic Acid) 1 mg PO DAILY [facility] Last Admin: 08/08/20 09:40 Dose: 1 mg Documented by: Furosemide (Lasix) 40 mg PO DAILY@0600 [facility] Last Admin: 08/07/20 06:43 Dose: 40 mg Documented by: Dextrose/Sodium Chloride (Dextrose 5%-Normal Saline) 1,000 mls @ 75 mls/hr IV ASDIRECTED [facility] Last Admin: 08/09/20 05:53 Dose: 75 mls/hr Documented by: Lactulose (Cephulac) 15 gm PO TID [facility] Last Admin: 08/08/20 20:44 Dose: 15 gm Documented by: Melatonin (Melatonin) 3 mg PO BEDTIME [facility] Last Admin: 08/08/20 21:33 Dose: Not Given Documented by: Midodrine (Midodrine) 5 mg PO TIDAC [facility] Last Admin: 08/09/20 06:40 Dose: Not Given Documented by: Miscellaneous Information (Remove Patch) 0 ea TRDERM Q24H [facility] Last Admin: 08/08/20 09:42 Dose: Not Given Documented by: Multivitamins (Thera) 1 each PO DAILY [facility] Last Admin: 08/08/20 09:40 Dose: 1 each Documented by: Nicotine (Habitrol) 7 mg TRDERM DAILY [facility] Last Admin: 08/08/20 09:40 Dose: 7 mg Documented by: Ondansetron HCl (Zofran Odt) 4 mg PO Q4H PRN PRN Reason: Nausea/Vomiting Last Admin: 08/08/20 09:39 Dose: 4 mg Documented by: Oxycodone HCl (Oxycodone) 5 mg PO Q6H PRN PRN Reason: Pain (moderate 4-6) Last Admin: 08/04/20 06:56 Dose: 5 mg Documented by: Oxycodone HCl (Oxycodone) 10 mg PO Q6H PRN PRN Reason: Pain (severe 7-10) Last Admin: 08/02/20 06:52 Dose: 10 mg Documented by: Spironolactone (Aldactone) 100 mg PO DAILY [facility] Last Admin: 08/06/20 09:36 Dose: 100 mg Documented by: Thiamine HCl (Vitamin B-1) 100 mg PO DAILY [facility] Last Admin: 08/08/20 09:40 Dose: 100 mg Documented by: Discontinued Medications Alprazolam (Xanax) 1 mg PO BEDTIME ONE Stop: 07/12/20 21:01 Last Admin: 07/12/20 21:24 Dose: 1 mg Documented by: Alprazolam (Xanax) 1 mg PO BEDTIME [facility] Cephalexin (Keflex) 500 mg PO Q8H [facility] Stop: 07/27/20 06:01 Last Admin: 07/27/20 06:47 Dose: 500 mg Documented by: Colchicine (Colcrys) 1.2 mg PO ONETIME ONE Stop: 07/30/20 09:13 Last Admin: 07/30/20 10:24 Dose: 1.2 mg Documented by: Colchicine (Colcrys) 0.6 mg PO ONETIME ONE Stop: 07/30/20 11:01 Last Admin: 07/30/20 10:25 Dose: 0.6 mg Documented by: Dexamethasone (Dexamethasone) 6 mg PO Q24H [facility] Stop: 07/27/20 16:01 Last Admin: 07/19/20 15:51 Dose: 6 mg Documented by: Dextrose/Water (Dextrose 50% In Water) 50 ml IVPUSH ASDIRECTED ONE Stop: 08/07/20 08:25 Last Admin: 08/07/20 08:40 Dose: 50 ml Documented by: Dextrose/Water (Dextrose 50% In Water) Confirm Administered Dose 50 ml .ROUTE .STK-MED ONE Stop: 08/07/20 08:28 Last Admin: 08/07/20 08:40 Dose: Not Given Documented by: Dextrose/Water (Dextrose 50% In Water) 50 ml IVPUSH ASDIRECTED ONE Stop: 08/07/20 12:26 Last Admin: 08/07/20 12:37 Dose: 50 ml Documented by: Dextrose/Water (Dextrose 50% In Water) Confirm Administered Dose 50 ml .ROUTE .STK-MED ONE Stop: 08/07/20 12:29 Last Admin: 08/07/20 12:30 Dose: Not Given Documented by: Dextrose/Water (Dextrose 50% In Water) Confirm Administered Dose 50 ml .ROUTE .STK-MED ONE Stop: 08/09/20 06:33 Last Admin: 08/09/20 06:39 Dose: 50 ml Documented by: Doxycycline Hyclate (Vibramycin) 100 mg PO BID [facility] Last Admin: 07/25/20 08:40 Dose: 100 mg Documented by: Folic Acid (Folic Acid) 1 mg PO DAILY [facility] Furosemide (Lasix) 40 mg IVPUSH NOW ONE Stop: 07/12/20 19:17 Last Admin: 07/12/20 19:38 Dose: 40 mg Documented by: Furosemide (Lasix) 40 mg IVPUSH NOW ONE Stop: 07/13/20 09:15 Last Admin: 07/13/20 09:42 Dose: 40 mg Documented by: Furosemide (Lasix) 40 mg IVPUSH DAILY [facility] Furosemide (Lasix) 20 mg IVPUSH DAILY [facility] Last Admin: 07/14/20 10:10 Dose: 20 mg Documented by: Furosemide (Lasix) 40 mg IVPUSH DAILY [facility] Last Admin: 07/24/20 08:33 Dose: 40 mg Documented by: Furosemide (Lasix) 40 mg PO DAILY [facility] Last Admin: 07/26/20 09:55 Dose: 40 mg Documented by: Furosemide (Lasix) 40 mg PO BIDDIURETIC [facility] Last Admin: 07/30/20 06:28 Dose: 40 mg Documented by: Furosemide (Lasix) 20 mg IVPUSH NOW ONE Stop: 07/26/20 11:46 Last Admin: 07/26/20 11:45 Dose: 20 mg Documented by: Furosemide (Lasix) 20 mg PO DAILY@1400 [facility] Last Admin: 08/05/20 13:53 Dose: 20 mg Documented by: Haloperidol (Haldol) 2 mg PO BEDTIME [facility] Last Admin: 07/30/20 21:02 Dose: 2 mg Documented by: Haloperidol (Haldol) 3 mg PO BEDTIME [facility] Last Admin: 08/03/20 21:43 Dose: 3 mg Documented by: Haloperidol (Haldol) 5 mg PO BEDTIME [facility] Last Admin: 08/07/20 22:06 Dose: Not Given Documented by: Haloperidol (Haldol) 3 mg PO BEDTIME [facility] Sodium Chloride (Normal Saline) 1,000 mls @ 125 mls/hr IV ASDIRECTED [facility] Last Admin: 07/12/20 17:03 Dose: 125 mls/hr Documented by: Vancomycin HCl 1.5 gm/ Sodium (Chloride) 500 mls @ 250 mls/hr IV ONETIME ONE Stop: 07/12/20 19:21 Last Admin: 07/12/20 20:07 Dose: 250 mls/hr Documented by: Vancomycin HCl 1 gm/ Sodium (Chloride) 250 mls @ 250 mls/hr IV Q12H [facility] Last Admin: 07/14/20 23:00 Dose: 250 mls/hr Documented by: Ceftriaxone Sodium 2 gm/ (Sodium Chloride) 100 mls @ 200 mls/hr IV Q24H [facility] Last Admin: 07/14/20 14:38 Dose: 200 mls/hr Documented by: Sodium Chloride (Normal Saline) 1,000 mls @ 100 mls/hr IV ASDIRECTED [facility] Stop: 07/15/20 00:59 Last Admin: 07/14/20 00:04 Dose: 100 mls/hr Documented by: Vancomycin HCl 1 gm/ Sodium (Chloride) 250 mls @ 250 mls/hr IV Q24H [facility] Stop: 07/21/20 23:00 Last Admin: 07/21/20 20:20 Dose: 250 mls/hr Documented by: Ceftriaxone Sodium 2 gm/ (Sodium Chloride) 100 mls @ 200 mls/hr IV Q24H [facility] Stop: 07/21/20 17:00 Last Admin: 07/21/20 15:10 Dose: 200 mls/hr Documented by: Sodium Chloride (Normal Saline) 100 mls @ 75 mls/hr IV ASDIRECTED [facility] Stop: 07/18/20 17:00 Azithromycin 500 mg/ Sodium (Chloride) 250 mls @ 250 mls/hr IV Q24H [facility] Last Admin: 07/20/20 15:19 Dose: 250 mls/hr Documented by: Remdesivir 200 mg/ Sodium (Chloride) 250 mls @ 250 mls/hr IV ONETIME ONE Stop: 07/18/20 17:29 Last Admin: 07/18/20 17:55 Dose: 250 mls/hr Documented by: Remdesivir 100 mg/ Sodium (Chloride) 100 mls @ 100 mls/hr IV Q24H [facility] Stop: 07/22/20 17:29 Last Admin: 07/19/20 17:14 Dose: 100 mls/hr Documented by: Albumin Human (Flexbumin 25%) 12.5 gm in 50 mls @ 100 mls/hr IV ONETIME ONE Stop: 07/30/20 10:04 Last Admin: 07/30/20 10:25 Dose: 100 mls/hr Documented by: Sodium Chloride (Normal Saline) 500 mls @ 100 mls/hr IV ASDIRECTED [facility] Stop: 08/06/20 13:59 Albumin Human (Flexbumin 25%) 12.5 gm in 50 mls @ 100 mls/hr IV ONETIME ONE Stop: 08/06/20 09:43 Last Admin: 08/06/20 09:33 Dose: 100 mls/hr Documented by: Sodium Chloride (Normal Saline) 1,000 mls @ 50 mls/hr IV ASDIRECTED [facility] Stop: 08/08/20 04:14 Last Infusion: 08/07/20 18:39 Dose: 75 mls/hr Documented by: Dextrose/Sodium Chloride (Dextrose 5%-Normal Saline) 1,000 mls @ 50 mls/hr IV ASDIRECTED [facility] Last Admin: 08/07/20 12:48 Dose: 50 mls/hr Documented by: Iopamidol (Isovue-370 (76%)) 100 ml IVPUSH ONETIME ONE Stop: 07/18/20 13:38 Last Admin: 07/18/20 16:43 Dose: Not Given Documented by: Lactulose (Cephulac) 20 gm PO TID [facility] Last Admin: 07/13/20 15:46 Dose: Not Given Documented by: Lactulose (Cephulac) 20 gm PO TID [facility] Last Admin: 07/15/20 10:21 Dose: 20 gm Documented by: Lactulose (Cephulac) 30 gm PO TID [facility] Last Admin: 07/30/20 08:33 Dose: 30 gm Documented by: Lidocaine/Epinephrine (Xylocaine 1% With Epinephrine 1:100,000) 20 ml INJECT ONETIME ONE Stop: 07/20/20 13:31 Last Admin: 07/20/20 14:59 Dose: Not Given Documented by: Losartan Potassium (Cozaar) 12.5 mg PO DAILY [facility] Last Admin: 07/31/20 08:52 Dose: Not Given Documented by: Magnesium Oxide (Magnesium Oxide) 400 mg PO BID [facility] Stop: 07/21/20 23:00 Last Admin: 07/21/20 20:19 Dose: 400 mg Documented by: Magnesium Oxide (Magnesium Oxide) 800 mg PO 1100 [facility] Last Admin: 08/02/20 11:59 Dose: 800 mg Documented by: Melatonin (Melatonin) 3 mg PO BEDTIME PRN PRN Reason: insomnia Last Admin: 07/25/20 22:03 Dose: 3 mg Documented by: Midodrine (Midodrine) 10 mg PO ONETIME ONE Stop: 08/08/20 21:21 Last Admin: 08/08/20 21:31 Dose: 10 mg Documented by: Mirtazapine (Remeron) 15 mg PO BEDTIME [facility] Last Admin: 08/07/20 22:06 Dose: Not Given Documented by: Miscellaneous Information (Remove Patch) 0 ea TRDERM Q24H [facility] Last Admin: 07/31/20 14:26 Dose: 1 ea Documented by: Nicotine (Habitrol) 14 mg TRDERM Q24H [facility] Last Admin: 07/31/20 14:26 Dose: 14 mg Documented by: Non-Formulary Medication (Magnesium Oxide [Magnesium Oxide]) 400 mg PO DAILY [facility] Ondansetron HCl (Zofran) 4 mg IV Q6H PRN PRN Reason: Nausea/Vomiting Ondansetron HCl (Zofran) Confirm Administered Dose 4 mg .ROUTE .STK-MED ONE Stop: 07/28/20 11:03 Last Admin: 07/28/20 12:36 Dose: Not Given Documented by: Oral Electrolytes (Thermotabs) 2 each PO BID [facility] Last Admin: 08/08/20 09:40 Dose: 2 each Documented by: Oxycodone HCl (Oxycodone) 5 - 10 mg PO Q6H PRN PRN Reason: Pain Potassium Chloride (Klor-Con M20) 40 meq PO TID [facility] Stop: 07/14/20 09:01 Last Admin: 07/14/20 10:09 Dose: 40 meq Documented by: Prednisone (Prednisone) 40 mg PO ONETIME ONE Stop: 08/04/20 12:01 Last Admin: 08/04/20 13:31 Dose: 40 mg Documented by: Sodium Chloride (Saline Flush) 10 ml FLUSH ONETIME PRN PRN Reason: IV FLUSH Stop: 07/18/20 17:00 Spironolactone (Aldactone) 25 mg PO ONETIME ONE Stop: 07/12/20 19:18 Last Admin: 07/12/20 19:38 Dose: 25 mg Documented by: Spironolactone (Aldactone) 25 mg PO ONETIME ONE Stop: 07/13/20 09:16 Last Admin: 07/13/20 09:50 Dose: 25 mg Documented by: Spironolactone (Aldactone) 25 mg PO DAILY [facility] Spironolactone (Aldactone) 50 mg PO DAILY [facility] Last Admin: 07/15/20 10:20 Dose: 50 mg Documented by: Thiamine HCl (Vitamin B-1) 100 mg PO DAILY [facility] Vancomycin HCl (Pharmacy To Dose - Vancomycin) 1 dose .XX ASDIRECTED [facility] Stop: 07/21/20 23:00 Vancomycin HCl (Vancocin) Confirm Administered Dose 1 gm .ROUTE .STK-MED ONE Stop: 07/17/20 21:34 Last Admin: 07/17/20 23:07 Dose: Not Given Documented by: Venlafaxine HCl (Effexor) 37.5 mg PO BID [facility] - Exam Quality Assessment: No: Supplemental Oxygen (Discontinued ), DVT Prophylaxis (Contraindicated ) General: Moderate Distress, Obtunded. No: Alert, Oriented, Cooperative HEENT: Pupils Equal, Scleral Icterus Neck: Supple, Trachea Midline Lungs: Decreased Breath Sounds, Crackles, Rales, Rhonchi. No: Normal Respiratory Effort (Tachypneic) Cardiovascular: Regular Rate, Regular Rhythm GI/Abdominal Exam: Distended, Abnormal Bowel Sounds (Hypoactive), Hernia (Umbilical) (Male) Exam: Deferred Extremities: Pedal Edema (3-4+), Other (Serosanguineous drainage on right leg covered by bandage.). No: Normal Inspection, Normal Capillary Refill, Increased Warmth, Redness Skin: Warm, Dry, Intact, Ecchymosis (Significant scattered), Other (And just) Neurological: No New Focal Deficit Sepsis Event Note - Evaluation Sepsis Screening Result: No Definite Risk - Focused Exam Vital Signs: Vital Signs Temp Pulse Resp BP BP Pulse Ox Pulse Ox 08/09/20 04:18 100/60 08/09/20 04:02 97.5 F 82 20 88 L 08/09/20 00:27 88/56 L 08/08/20 22:16 84/60 L 08/08/20 21:21 90 L 08/08/20 21:05 80/52 L 08/08/20 20:54 98.1 F 22 H 74/40 L 91 L - Problem List & Annotations (1) End of life care SNOMED Code(s): 047507913, 239108788 Code(s): Z51.5 - ENCOUNTER FOR PALLIATIVE CARE Status: Acute Priority: High Current Visit: Yes (2) Tobacco use disorder SNOMED Code(s): 903097639 Code(s): F17.200 - NICOTINE DEPENDENCE, UNSPECIFIED, UNCOMPLICATED Status: Chronic Priority: Medium Current Visit: No (3) History of alcohol abuse SNOMED Code(s): 181813469 Code(s): F10.11 - ALCOHOL ABUSE, IN REMISSION Status: Chronic Priority: Medium Current Visit: No (4) Esophageal varices without bleeding SNOMED Code(s): 15968917 Code(s): I85.00 - ESOPHAGEAL VARICES WITHOUT BLEEDING Status: Chronic Priority: Medium Current Visit: No Qualifiers: Esophageal varices type: unspecified type Qualified Code(s): I85.00 - Esophageal varices without bleeding (5) Failure to thrive SNOMED Code(s): 17955541 Code(s): GDT4900 - Status: Acute Priority: Medium Current Visit: Yes Onset Date: ~07/19/20 Qualifiers: Failure to thrive age range: in adult Qualified Code(s): R62.7 - Adult failure to thrive (6) Difficulty walking SNOMED Code(s): 871432319 Code(s): R26.2 - DIFFICULTY IN WALKING, NOT ELSEWHERE CLASSIFIED Status: Acute Priority: Low Current Visit: Yes Onset Date: ~07/19/20 (7) Medical non-compliance SNOMED Code(s): 370272861 Code(s): Z91.19 - PATIENT'S NONCOMPLIANCE W OTH MEDICAL TREATMENT AND REGIMEN Status: Chronic Priority: High Current Visit: Yes (8) Serum ammonia increased SNOMED Code(s): 9476794 Code(s): E72.20 - DISORDER OF UREA CYCLE METABOLISM, UNSPECIFIED Status: Chronic Priority: High Current Visit: Yes (9) Anemia SNOMED Code(s): 228597770 Code(s): D64.9 - ANEMIA, UNSPECIFIED Status: Chronic Priority: High Current Visit: Yes Qualifiers: Anemia type: bone marrow failure Bone marrow failure anemia type: unspecified bone marrow failure Qualified Code(s): D61.9 - Aplastic anemia, unspecified (10) Bilateral lower leg cellulitis SNOMED Code(s): 751545168 Code(s): L03.116 - CELLULITIS OF LEFT LOWER LIMB; L03.115 - CELLULITIS OF RIGHT LOWER LIMB Status: Acute Priority: Low Current Visit: Yes Onset Date: ~07/19/20 (11) Cirrhosis of liver SNOMED Code(s): 32094537 Code(s): K74.60 - UNSPECIFIED CIRRHOSIS OF LIVER Status: Chronic Priority: High Current Visit: Yes Qualifiers: Hepatic cirrhosis type: alcoholic cirrhosis Ascites presence: with ascites Qualified Code(s): K70.31 - Alcoholic cirrhosis of liver with ascites (12) Dependent edema SNOMED Code(s): 293124254 Code(s): R60.9 - EDEMA, UNSPECIFIED Status: Acute Priority: High Current Visit: Yes (13) Elevated INR SNOMED Code(s): 040017281 Code(s): R79.1 - ABNORMAL COAGULATION PROFILE Status: Chronic Priority: Medium Current Visit: Yes (14) Hypokalemia SNOMED Code(s): 48946391 Code(s): E87.6 - HYPOKALEMIA Status: Resolved Priority: High Current Visit: Yes (15) Hyponatremia SNOMED Code(s): 10258148 Code(s): E87.1 - HYPO-OSMOLALITY AND HYPONATREMIA Status: Acute Priority: Medium Current Visit: Yes Onset Date: ~07/19/20 (16) Thrombocytopenia SNOMED Code(s): 111260708 Code(s): D69.6 - THROMBOCYTOPENIA, UNSPECIFIED Status: Chronic Priority: High Current Visit: Yes (17) Depression SNOMED Code(s): 34313920 Code(s): F32.9 - MAJOR DEPRESSIVE DISORDER, SINGLE EPISODE, UNSPECIFIED Status: Chronic Priority: Medium Current Visit: Yes Qualifiers: Depression Type: other depression Qualified Code(s): F32.89 - Other specified depressive episodes (18) Hepatic encephalopathy SNOMED Code(s): 34124341 Code(s): K72.90 - HEPATIC FAILURE, UNSPECIFIED WITHOUT COMA Status: Chronic Priority: High Current Visit: Yes (19) Lactic acidosis SNOMED Code(s): 71138873 Code(s): E87.2 - ACIDOSIS Status: Acute Priority: High Current Visit: Yes (20) Hypoxia SNOMED Code(s): 231571744 Code(s): R09.02 - HYPOXEMIA Status: Acute Priority: High Current Visit: Yes (21) Elevated d-dimer SNOMED Code(s): 392027291 Code(s): R79.89 - OTHER SPECIFIED ABNORMAL FINDINGS OF BLOOD CHEMISTRY Status: Acute Priority: High Current Visit: Yes (22) Respiratory failure SNOMED Code(s): 580343477 Code(s): J96.90 - RESPIRATORY FAILURE, UNSP, UNSP W HYPOXIA OR HYPERCAPNIA Status: Resolved Priority: High Current Visit: Yes Qualifiers: Chronicity: acute Respiratory failure complication: hypoxia Qualified Code(s): J96.01 - Acute respiratory failure with hypoxia (23) Suspected COVID-19 virus infection SNOMED Code(s): 765272166 Code(s): Z20.828 - CONTACT W AND EXPOSURE TO OTH VIRAL COMMUNICABLE DISEASES Status: Ruled-out Priority: High Current Visit: Yes (24) S/P thoracentesis SNOMED Code(s): 432838684, 41625129, 499425726 Code(s): Z98.890 - OTHER SPECIFIED POSTPROCEDURAL STATES Status: Acute Priority: Low Current Visit: Yes (25) Status post incision and drainage SNOMED Code(s): 565377441, 633068967 Code(s): Z98.890 - OTHER SPECIFIED POSTPROCEDURAL STATES Status: Acute Priority: Medium Current Visit: Yes (26) Hallucination, visual SNOMED Code(s): 13284821 Code(s): R44.1 - VISUAL HALLUCINATIONS Status: Acute Priority: Low Current Visit: Yes Onset Date: ~07/19/20 (27) Gout SNOMED Code(s): 79759977 Code(s): M10.9 - GOUT, UNSPECIFIED Status: Acute Priority: High Current Visit: Yes Qualifiers: Gout site: toe Gout etiology: unspecified cause Chronicity: acute Laterality: right Qualified Code(s): M10.9 - Gout, unspecified (28) Umbilical hernia SNOMED Code(s): 422047066 Code(s): K42.9 - UMBILICAL HERNIA WITHOUT OBSTRUCTION OR GANGRENE Status: Chronic Priority: Low Current Visit: No Qualifiers: Obstruction and gangrene presence: without obstruction or gangrene Qualified Code(s): K42.9 - Umbilical hernia without obstruction or gangrene - Problem List Review Problem List Initiated/Reviewed/Updated: Yes - My Orders Last 24 Hours: My Active Orders 08/09/20 06:50 AMMONIA VENOUS [CHEM] Routine PROCALCITONIN [REF] AM - Assessment Assessment:: 07/13/2020 - Day of Admission -64 yo Male who presents to ED on 07/12/20 with confusion and bilateral cellulitis -History of hepatic encephalopathy, End stage liver disease, ETOH abuse, Tobacco use, Esophageal varices with banding, depression, dependant edema -Patient admits to ED provider that he has not been taking his medications because he forgets -Denies any ETOH use for past 2 months (ETOH in ED was 0.00) -Kept in ED overnight due to bed shortage statewide and us being on diversion -Started on Vancomycin in ED foe cellulitis -Given lactulose, spironolactone, lasix, IV fluids, Xanax, vancomycin in ED -No WBC in ED, although likely cannot mount immunologic defense due to alcoholic bone marrow suppression -Sepsis criteria: -Bilateral cellulitis, No tachycardia, tachypnea, WBC, or fever -Hypotension likely 2/2 end stage liver failure, Lactate >2 likely 2/2 ch ronic ETOH abuse, Bilirubin >2 chronically, Platelets <100 chronically, INR elevated 2/2 End stage liver disease -Does not meet criteria -Per ED provider social work states patient apartment was very unkempt -Social work reports patient has been known to leave water running and burners on in apartment. Patient is being evicted. 07/14/2020 * Small improvement in cellulitis * Procalcitonin was negative at 0.05 * White count 6.1 and CRP 2.1 * Lactic acid is chronically elevated due to liver disease at 2.6. Total bilirubin elevated at 7.8 and direct bilirubin 3.8 * Oxygen requirement has increased to 4 L/min * Sodium chronically low at 131 07/15/2020 * Continued improvement in cellulitis * WBC remains WNL at 7.19 with CRP of 2.2 * Oxygen requirement has decreased to 2L * Blood cultures negative thus far * Sodium improved to 133 * Potassium 4.3 * Dr. Powell saw patient and recommends withholding patients effexor and monitoring * Patient remains quite confused 07/16/20 * Continue current treatment * Routine AM labs with Ammonia * Midodrine 5 mg po TIDAC * Remains confused with hallucinations (seeing squirrels inside his room) * May consider anti-psychotic medications if needed * Need Tele-psych consult 07/17/20 * Continue current treatment: Rocephin and Vancomycin * Routine AM labs * Offered I&D but patient refused * Wound culture on right ramos * Remains confused with hallucinations (seeing squirrels inside his room) * May consider anti-psychotic medications if needed * Need Tele-psych follow up * LOS > 96 HRS due to need for placement 07/18/20 * WBC improved to 10.41 from 11.68 * CRP 9.1 from 5.7 * Creatinine 1.4 with GFR of 51 * Requiring 6L O2 via NC * Wound culture showing no growth * MELD-Na score on admission calculated to be 29 points - 27-32% estimated 90- day mortality * D-Dimer 7.29 * BNP 1009 * INR 2.33 * CTA shows pleural effusions and ground glass opacities concerning for viral/atypical pneumonia\ * Discussed plan with Dr. Castro - will start covid-19 treatment protocol 07/19/2020 * WBC 8.31 * CRP Up to 11.4 * Ferritin 513 * LDH 475 * Procalcitonin 0.43 * Creatinine 1.5, GFR 47 * INR 2.24 * On high flow oxygen * Thoracentesis performed today by Dr. Shipley with just over 1L clear straw colored output 07/20/2020 * Echo results show: * 1. LVEF, by visual estimation, is 65-70% * 2. Hyperdynamic left ventricular systolic function * 3. Verbally normal right ventricular systolic function and size, not well visualized. * 4. The aortic valve is not well visualized. * 5. Trace mitral valve regurgitation * 6. Trace tricuspid valve regurgitation. * 7. The right ventricular systolic pressure is unable to be determined. * 8. There is a pleural effusion * WBC 9.58 * CRP 10.2 * Sodium 130 and stable * Creatinine 1.5 and GFR 47 and stable * Awaiting thoracentesis culture * VRP negative * Covid-19 negative (4th time) * Discontinued COVID-19 treatment * Discontinue isolation precautions once off of high flow 07/21/2020 * WBC 10.17 * CRP 8.4 * Sodium 130 and stable * Creatinine 1.3 and GFR 55 * S/P I&D of right ramos with Dr. Cazares on 07/20/2020 * Purulent bloody drainage * No cultures sent due to patient being on abx for several days * O2 down to 4L * Thoracentesis cultures show no growth * Continue current treatment plan * Legs continue to improve 07/22/2020 * No labs done today * Patient is stable without any complaints * He has been weaned off of oxygen * Cultures continue to be negative 07/23/2020 * Patient is back really 1 on 1 to 2L nasal cannula given oral tolerated * Otherwise he is without complaints. 07/24/2020 * Currently on 1 L nasal cannula * White count 9.6 with moderate toxic granulation, hemoglobin * No complaints. * Currently on Keflex and doxycycline 07/25/2020 * Off of oxygen today * No new complaints - still reports foot and back pain * On Keflex - doxycycline was discontinued * Serosanguineous drainage from left hip * Sodium 129 and stable * Pending placement * REHAB DIRECTOR OCCUPATIONAL THERAPIST evaluation on Saturday noted significant cognitive deficit. 04/17 on MOCA 07/26/2020 * Remains off of oxygen * Worsening pedal edema - weight up 14lbs on admission * Increase lasix dosing * No labs obtained today due to patient stability * Discontinue abx - completed therapy * SW continuing to work toward discharge plan 07/27/20 * Remains sable and off of oxygen * Continue increased lasix dosing * Labs remain grossly stable * Will hold off checking labs tomorrow and consider re-check * Legs edematous but overall look good * SW continues to work on discharge plan 07/28/20 * Generalized edema still noted. Continue Lasix. * No labs drawn today. * Dressing intact to right lower extremity. * Complains of pain to left great toe and fifth digit. Left great toe is reddened but there are no open areas and no drainage noted. Patient reports that he stubbed that toe, however I cannot assess the certainty of this due to the patient's cognition and lack of orientation. 07/29/2020 * Sodium down to 126 today * Fluid restriction started * Continued dressing on right lower extremity * Creatinine 1.4 and GFR 51 (stable) * Re-check BMP tomorrow * Given continued left great toe pain will check uric acid tomorrow * Remains confused * SW working on guardianship/placement. 07/30/2020 * Sodium remains 126 * Chloride 96 * Creatinine 1.3 and GFR 55 * Start low dose ARB at recommendation of Dr. Gomez * Will decrease PM lasix dose * Uric Acid 7.4 and patient complaining of toe pain * Will give colchicine 1.2mg followed by 0.6 mg * Recheck AM labs * Decreased lactulose dosing at patient request after discussion with Dr. Gomez * Remains slightly confused * Awaiting placement 07/31/2020 * Sodium improved to 127 * Potassium 3.9 * Chloride 94 * Creatine now 1.9 and GFR 36 * Kidney function likely decreased 2/2 ARB and colchicine * Minimal PO intake * Will stop ARB * Re-check AM labs including ammonia * Remains slightly confused but does remember conversations with nurse manager laundry; states he feels like he is confused * Continued hallucinations * Will increase haldol dosing to 3mg at bedtime * Schedule melatonin * Dietary to continue to follow * Reports poor sleep * Thermotabs started 08/01/20 * Sodium is up to 128 today. * Creatinine 2.3 and GFR 29. * ARB has been discontinued. * Known new hallucinations reported * States discomfort to left great toe is much better * Awaiting placement. 08/02/2020 * Sodium, creatinine, and GFR are the same as yesterday, 128, 2.3, and 29, respectively. * Blood pressure has improved. * Anion gap has slightly increased to 17.4 and bicarb decreased to 20. * ABG shows respiratory alkalosis with metabolic compensation. Unknown reason at this time. * Appetite is minimal, but this appears to be chronic. * Thrombocytopenia is worse today at 76,000. 08/03/2020 * Kidney function has improved slightly with estimated GFR 32, creatinine 2.1. * Sodium slightly increased at 129. * BUN is continuing to increase at 44. * Anion gap back to normal at 13.1 * Continued dropping of his platelets had 68,000 * Bicarb improved to 23 * Magnesium elevated at 2.8 * Minimal right little toe pain. Hold off on treatment at this time, but may benefit tomorrow if toe continues to hurt by 1 dose of prednisone. * Generally patient is improving. * Awaiting placement 08/04/2020 * No labs obtained today * Will re-check labs tomorrow * Continues to improve overall * Awaiting placement and resolution of social issues 08/05/2020 * Continues to await placement * Dr. Powell re-consulted yesterday due to continued depression and hallucina tions * Recommended increasing haldol to 5mg at bedtime, starting 15mg remeron at bedtime * Labs today * Hgb improved to 9.1 * Sodium stable at 129 * Magnesium improved to 2.6 * Creatinine improved to 2.0 with GFR of 34 * Continues to improve overall * Noted to be a bit more sleepy today. Monitor alertness with change in psychiatric meds * Remains confused. 08/06/2020 * Continues to await placement * Continue current treatment * Has persistent lower extremity edema with trending down albumin level, may benefit with albumin infusion * IV fluids 500 ml NS bolus x1 due to reduced renal function * Lasix 40 mg po daily now * Fall precautions * Continue PT/OT * Confusion: chronic encephalopathy exacerbated by psych medications that he is one * Routine AM Labs 1942: Patient has been bed-bound mostly throughout the day as as a result he skipped all his meals today. We will hold remeron, haldol, and oxy for now. Repeat BMP if he needs fluid for hydration. 08/07/2020 * Continues to await placement * CXR to r/o aspiration since O2 requirement went up * Hold BP meds: lasix and aldactone due to acute kidney injury * IS as directed and beside pulmonary exercise * Ammonia level this AM * 1 Amp of D50 x 1 * 1L NS x1 for hydration * Fall precautions * Continue PT/OT * Routine AM Labs 2052: Repeat renal panel is no better despite of him being on IV fluids for hydration and off diuretic. Will obtain renal U/S in AM to r/o obstructive uropathy 08/08/2020 * Continues to await placement * Guardianship pending * Weaning down oxygen - currently on 2L * Continue to hold lasix and aldactone * Will discontinue haldol and Remeron today due to continued oversedation - consider resuming haldol at lower dose once more alert * Continue IV hydration * Labs today * WBC 9.29 * Hgb 8.5 * Sodium 136 * Creatinine 2.3 * GFR 29 * Magnesium 2.7 * Bilirubin 7.6 * CRP 7.5 * Albumin 1.8 * Repeat ammonia tomorrow * AM labs tomorrow 08/09/2020 * Patient continues to decline * Noted to be tachypneic with gurgling respirations. RT to deep suction * Given 80 mg IV push Lasix with minimal output. * Nursing reports significant decrease in urination throughout the night * Patient appears to be in pain. P.o. medications withheld over concerns of patient aspiration * Labs: * WBC 10.97 * hemoglobin 8.0 * MCV 107.2 * platelet 43,000 * neutrophils elevated at 9.70 * sodium 138 * potassium 5.3 * carbon dioxide 12 * anion gap 24.3 * BUN 62 * creatinine 3.3 * GFR 19 * glucose 198 * calcium 8.1 * magnesium 2.9 * bilirubin 8.2 * AST 13, ALT 90, alkaline phosphatase 90 * ammonia 108 * CRP 7.3 * protein 4.8 * albumin 1.6 * Given concerns over patient's worsening status and no guardian ethics committee meeting called * Decision made to make patient comfort care * Discontinue PT/OT, lab draws, oxygen therapy, IV fluids, home medications * Start PRN IV morphine for pain and Ativan for anxiety * Sublingual PRN atropine for secretions * Regular diet if patient requests PO intake * If appears imminent contact spiritual care onion farmer to pray with patient - Plan Plan:: End of life care * Discontinue PT/OT, lab draws, oxygen therapy, IV fluids, daily home meds * Start PRN IV morphine and Ativan for comfort care * Start lingual atropine for excessive secretions * Spiritual care consulted * Regular diet if patient requests PO intake * Patient will remain hospitalized until he passes Inactive: Bilateral cellulitis/Stasis Dermatitis, resolved Dependant edema, improved Small hematoma/abscess on right ramos, resolved Leukocytosis, resolved Leukocytopenia, resolved Hypoxemia, resolved S/P Right ramos I&D Gout Failure to thrive Hypokalemia, resolved Hyponatremia, improved Hypochloremia, resolved Hypoglycemia, BS of 40 Increased AG Metabolic Acidosis, persistent Medical non-compliance Hypermagnesemia likely secondary to replacement and renal insufficiency Hypoalbuminemia, unchanged Relative Hypotension Acute Kidney Injury, unchanged History of ETOH abuse Hepatic vs Metabolic encephalopathy End-stage ETOH related cirrhosis Elevated INR Elevated Bilirubin Hx/o esophageal varices Thrombocytopenia, trending down, not on anticoagulation Macrocytic Normochromic Anemia Elevated serum ammonia Hyperlactatemia Umbilical hernia Depression Hallucinations Tobacco use disorder Code status: DNR/DNI/Comfort care PCP: Dr. Mccollum DVT prophylaxis: Not indicated due to comfort care Disposition: Patient will remain hospitalized until he expires Social: Patient reportedly lives in an apartment. [facility] Ui Developer Designer is following patient. Patient has history of leaving water running and forgetting to turn of burner. Per ED note apartment is very unkempt and there are concerns for patient safety. SW/CM consulted. Prognosis: Grim LOS >96 HRS due to actively dying
--- NOTE | 2020-08-09 08:15 | CR ---
Chest: Portable view of the chest is obtained. Comparison: Prior chest x-ray of 08/07/20. Increased density within the left upper chest and left lower chest are seen. Findings with left lower chest are improved. Findings within the left upper chest are minimally increased from previous exam. Mild areas of increased density is seen within the right upper chest also more prominent. Heart size is normal. Prior cervical spine surgery is noted. Impression: 1. Slight increasing density within both upper lungs and improved appearance of the left base from prior study. 2. Other incidental findings. Diagnostic code #3
[2020-08-09] MEDS ORDERED: Furosemide 40 MG/4 ML VIAL IVPUSH ONE (09:10)
[2020-08-09] MEDS: Nicotine 7 MG/24 Hr Patch TRDERM SCH (09:44)
[2020-08-09] MEDS: Morphine 2 MG/ML SYRINGE IVPUSH PRN ×2 (11:04→15:12)
[2020-08-09] MEDS: Lactulose Soln 10 GM/15 ML 30 ML UD Cup SCH ×2 (12:02→17:58)
[2020-08-09] MEDS: Spironolactone 100 MG Tab PO SCH (12:19)
[2020-08-09] MEDS: Thiamine 100 MG Tab PO SCH (12:20)
[2020-08-09] MEDS: Lactulose Soln 10 GM/15 ML 30 ML UD Cup PO SCH ×2 (12:20→15:52)
[2020-08-09] MEDS: Multivitamins,Therapeutic Tab PO SCH (12:20)
[2020-08-09] MEDS: Folic Acid 1 MG Tab PO SCH (12:20)
[2020-08-09 15:41] VITALS: BP 96/27; PULSE 87
[2020-08-09] MEDS ORDERED: Morphine 2 MG/ML SYRINGE IVPUSH PRN (16:56)
[2020-08-09] MEDS ORDERED: LORazepam 2 MG/ML SDV IVPUSH PRN (16:57)
[2020-08-09] MEDS ORDERED: Atropine 1% Ophth Soln 5 ML BOTTLE SL PRN (16:58)
[2020-08-09] MEDS ORDERED: Scopolamine 1.5 MG Transdermal Patch TRDERM PRN (17:33)
--- NOTE | 2020-08-10 07:16 | PCM.DCSUM1 ---
Discharge Summary - Hospital Course HPI Initial Comments: This is a 64 yo male who presents to ED on 07/12/2020 via [facility] with confusion and disorientation. He has history of hepatic encephalopathy secondary to alcohol induced cirrhosis with chronic ascites and severe lower extremity edema. He states that he has not had any alcohol for 2 months and he occasionally smokes cigarettes when he is able to locate some. Per ED provider his house was reported to be very unkempt with furniture tossed about. [facility] is aware of the situation and has been in contact with ED provider. It is felt is unsafe for him to return home. He was hospitalized at [facility] in [place] from 05/06/2020-05/18/2020. During that time he underwent an EGD with esophageal banding x6 due to esophageal varices with bleeding. He also underwent paracentesis by IR on 05/13/2020 with 3010mL of star colored ascites output. Per the discharge notes he was discharged on 30ml of TID lactulose, 400mg daily of magnesium oxide, 25mg of PRN meclizine, 3mg of PRN melatonin at bedtime, 1 tablet MV daily,100mg thiamine tablet daily, 30mg PO Lasix daily, 50mg of spironolactone daily, 1-2 tablets of of 5mg oxycodone PRN TID, and Effexor 37.5mg daily. Per the patient he has not been able to remember to take these medications and has therefore stopped taking them altogether. In the ED here he was noted to have red and warm lower extremities. He reports difficulty getting to the bathroom and ambulating. 12-Lead EKG was obtained showing a sinus rhythm at 75 bpm with occasional PACs. P wave is enlarged and there is early QRS transition in V2. Nonspecific T wave flattening is noted in aVL and QT interval is moderately prolonged. Vital signs show a temp of 36.3. Pulse 76. Respirations 18. Blood pressure 89/43. Pulse ox 99. Patient denies any fevers at home. Labs are obtained showing a WBC of 5.60. RBC is 2.6. Hemoglobin 8.9. He is macrocytic. Platelets are low at 74,000. Neutrophils are normal at 63.2%. UA is negative however 1+ urine bilirubin and 4.0 urine urobilinogen is noted. SARS-CoV-2 RNA screen is negative. INR is 1.87. Sodium is very low at 122. Potassium is 3.9. Chloride is 88. Carbon dioxide is 25. Anion gap is 12.9. BUN is 21. Creatinine 1.1. GFR is greater than 60. Glucose is 111. Calcium 8.8. Bilirubin is very high at 8.7. AST is 65, ALT 69, alkaline phosphatase 96. Ammonia is slightly high at 37. Troponin is within normal limits at 0.038. CRP is slightly elevated at 1.7. Protein is good at 6.6. Albumin is low at 2.4. ESR is 14. Lactic acid is high at 2.7. Magnesium is 1.9. proBNP is 467. Ethyl alcohol is 0.00. Chest x-ray is obta ined and shows no acute cardiopulmonary disease process. He is given 1 mg of Xanax, 40 mg IV push of Lasix, 25 mg p.o. spironolactone, and started on vancomycin. He is also started on IV fluids. Unfortunately ED provider is unable to find patient a bed at our facility or anywhere else in the state till the next day. Patient is then admitted to our facility. Prior to admission labs were rechecked. White count remains normal. Platelets are decreased to 57,000. Sodium is increased to 128. Potassium decreased to 3.3. Bilirubin has improved to 8.3. Liver enzymes remain stable. He he is subsequently admitted to the medical floor for management of his bilateral lower extremity cellulitis and to obtain placement due to patient's failure to thrive. He carries a history of ascites, liver cirrhosis, esophageal varices with banding, diverticulosis, addiction, anxiety, depression, tobacco use disorder. Is a DNR/DNI. His PCP is Dr. Mccollum. Diagnosis: Stroke: No - Discharge Data Discharge Date: 08/10/20 (Admit date: 07/13/2020) Discharge Disposition: 20 Preliminary Cause of *Q: Multi System Organ Failure Condition: - Referral to Home Health Primary Care Physician: Isaac Mccollum Jr, MD - Discharge Diagnosis/Problem(s) (1) End of life care SNOMED Code(s): 992332258, 868068825 ICD Code: Z51.5 - ENCOUNTER FOR PALLIATIVE CARE Status: Acute Priority: High (2) Tobacco use disorder SNOMED Code(s): 004569588 ICD Code: F17.200 - NICOTINE DEPENDENCE, UNSPECIFIED, UNCOMPLICATED Status: Chronic Priority: Medium (3) History of alcohol abuse SNOMED Code(s): 698556174 ICD Code: F10.11 - ALCOHOL ABUSE, IN REMISSION Status: Chronic Priority: Medium (4) Esophageal varices without bleeding SNOMED Code(s): 63228630 ICD Code: I85.00 - ESOPHAGEAL VARICES WITHOUT BLEEDING Status: Chronic Priority: Medium Qualifiers: Esophageal varices type: unspecified type Qualified Code(s): I85.00 - Esophageal varices without bleeding (5) Failure to thrive SNOMED Code(s): 59507015 ICD Code: NZR1095 - Status: Acute Priority: Medium Onset Date: ~07/19/20 Qualifiers: Failure to thrive age range: in adult Qualified Code(s): R62.7 - Adult failure to thrive (6) Difficulty walking SNOMED Code(s): 509204653 ICD Code: R26.2 - DIFFICULTY IN WALKING, NOT ELSEWHERE CLASSIFIED Status: Acute Priority: Low Onset Date: ~07/19/20 (7) Medical non-compliance SNOMED Code(s): 347146326 ICD Code: Z91.19 - PATIENT'S NONCOMPLIANCE W OTH MEDICAL TREATMENT AND REGIMEN Status: Chronic Priority: High (8) Serum ammonia increased SNOMED Code(s): 3023417 ICD Code: E72.20 - DISORDER OF UREA CYCLE METABOLISM, UNSPECIFIED Status: Chronic Priority: High (9) Anemia SNOMED Code(s): 207954657 ICD Code: D64.9 - ANEMIA, UNSPECIFIED Status: Chronic Priority: High Qualifiers: Anemia type: bone marrow failure Bone marrow failure anemia type: unspecified bone marrow failure Qualified Code(s): D61.9 - Aplastic anemia, unspecified (10) Bilateral lower leg cellulitis SNOMED Code(s): 512095057 ICD Code: L03.116 - CELLULITIS OF LEFT LOWER LIMB; L03.115 - CELLULITIS OF RIGHT LOWER LIMB Status: Acute Priority: Low Onset Date: ~07/19/20 (11) Cirrhosis of liver SNOMED Code(s): 66555199 ICD Code: K74.60 - UNSPECIFIED CIRRHOSIS OF LIVER Status: Chronic Priority: High Qualifiers: Hepatic cirrhosis type: alcoholic cirrhosis Ascites presence: with ascites Qualified Code(s): K70.31 - Alcoholic cirrhosis of liver with ascites (12) Dependent edema SNOMED Code(s): 278841249 ICD Code: R60.9 - EDEMA, UNSPECIFIED Status: Acute Priority: High (13) Elevated INR SNOMED Code(s): 097187149 ICD Code: R79.1 - ABNORMAL COAGULATION PROFILE Status: Chronic Priority: Medium (14) Hyponatremia SNOMED Code(s): 39500433 ICD Code: E87.1 - HYPO-OSMOLALITY AND HYPONATREMIA Status: Acute Priority: Medium Onset Date: ~07/19/20 (15) Thrombocytopenia SNOMED Code(s): 491664908 ICD Code: D69.6 - THROMBOCYTOPENIA, UNSPECIFIED Status: Chronic Priority: High (16) Depression SNOMED Code(s): 19406396 ICD Code: F32.9 - MAJOR DEPRESSIVE DISORDER, SINGLE EPISODE, UNSPECIFIED Status: Chronic Priority: Medium Qualifiers: Depression Type: other depression Qualified Code(s): F32.89 - Other specified depressive episodes (17) Hepatic encephalopathy SNOMED Code(s): 70885024 ICD Code: K72.90 - HEPATIC FAILURE, UNSPECIFIED WITHOUT COMA Status: Chronic Priority: High (18) Lactic acidosis SNOMED Code(s): 77332330 ICD Code: E87.2 - ACIDOSIS Status: Acute Priority: High (19) Hypoxia SNOMED Code(s): 750505944 ICD Code: R09.02 - HYPOXEMIA Status: Acute Priority: High (20) Elevated d-dimer SNOMED Code(s): 122212617 ICD Code: R79.89 - OTHER SPECIFIED ABNORMAL FINDINGS OF BLOOD CHEMISTRY Status: Acute Priority: High (21) S/P thoracentesis SNOMED Code(s): 377338705, 42603334, 251204832 ICD Code: Z98.890 - OTHER SPECIFIED POSTPROCEDURAL STATES Status: Acute Priority: Low (22) Status post incision and drainage SNOMED Code(s): 250906944, 177549587 ICD Code: Z98.890 - OTHER SPECIFIED POSTPROCEDURAL STATES Status: Acute Priority: Medium (23) Hallucination, visual SNOMED Code(s): 55960045 ICD Code: R44.1 - VISUAL HALLUCINATIONS Status: Acute Priority: Low Onset Date: ~07/19/20 (24) Gout SNOMED Code(s): 06723567 ICD Code: M10.9 - GOUT, UNSPECIFIED Status: Acute Priority: High Qualifiers: Gout site: toe Gout etiology: unspecified cause Chronicity: acute Laterality: right Qualified Code(s): M10.9 - Gout, unspecified (25) Umbilical hernia SNOMED Code(s): 276330429 ICD Code: K42.9 - UMBILICAL HERNIA WITHOUT OBSTRUCTION OR GANGRENE Status: Chronic Priority: Low Qualifiers: Obstruction and gangrene presence: without obstruction or gangrene Qualified Code(s): K42.9 - Umbilical hernia without obstruction or gangrene - Patient Summary/Data Consults: Consultations 07/13/20 10:07 Consult to Spiritual Care [CONS] Routine 07/13/20 14:51 Consult to Physician [CONS] Routine 07/19/20 10:13 Consult to Physician [CONS] Routine 07/20/20 12:36 Consult to Physician [CONS] Routine 08/09/20 09:10 Consult to Ethics [Consult to Spiritual Care] [CONS] Routine Labs Pending at D/C: None Recommended Follow-up Testing/Procedures: None Hospital Course: Mandeep was admitted to the hospital on 07/13/2020 for confusion bilateral cellulitis. He carries a history of hepatic encephalopathy, end-stage liver disease secondary to EtOH abuse, tobacco use, esophageal C banding, depression and dependent edema. He did note in the ED that he has been having increased confusion and difficulty remembering to take his home medications. He was star gisela on vancomycin in the ED for cellulitis and admitted to the floor. Rather lengthy him complex hospital stay. After admission social work noted that the patient had been living in an apartment, although it appeared that the patient was going to be evicted soon as he has been leaving his burner and water on and was found walking outside with a bathrobe and socks on different occasions. He was started on Rocephin and although his white count was low it is felt that he would be unable to mount much of the attack due to bone marrow suppression from his prior chronic alcohol abuse. He reported a history of depression which was treated by Effexor and Dr. Powell, psychiatrist, was consulted, the patient remained confused. He recommended stopping this and monitoring the patient. Blood pressures were somewhat soft, although they were expected to be lower due to the patient's chronic liver disease. He was started on midodrine 5 mg p.o. 3 times daily. While here it became apparent that the patient was not safe to return home as he remained confused and was having hallucinations. He was started out a sentence while talking with you and then quickly swerve off to something unrelated, or stop and that was not even present. Meld score on admission was calculated to be 29 points with a 27-32 estimated 90-day mortality. He was noted to have atypical/viral pneumonia findings noted on CTA scan and COVID-19 treatment protocol was initiated. Patient was requiring high flow oxygen and a thoracentesis was performed by general surgeon, Dr. Shipley, producing 1 L of clear straw-colored fluid. Echo was obtained showin. LVEF, by visual estimation, is 65-70% 2. Hyperdynamic left ventricular systolic function 3. Verbally normal right ventricular systolic function and size, not w ell visualized. 4. The aortic valve is not well visualized. 5. Trace mitral valve regurgitation 6. Trace tricuspid valve regurgitation. 7. The right ventricular systolic pressure is unable to be determined. 8. There is a pleural effusion. Viral panel was obtained and after for COVID-19 tests were negative decision was made to discontinue COVID-19 treatment and precautions. Patient was able to be weaned off of high flow oxygen after his thoracentesis. He was diuresed and a lump was noted on his right ramos which was concerning for an abscess. Dr. Corbin, surgeon performed an I&D on 07/20/2020. This produced purulent bloody drainage but cultures were not sent as the patient had been on broad-spectrum antibiotics for several days. Thoracentesis fluid was sent for cultures and showed no growth. Legs continue to improve. He was ultimately weaned off of oxygen. Was switched to p.o. Keflex and doxycycline. Ultimately this was switched to just Keflex and he completed treatment for his cellulitis. CONTRACT PROCESSOR evaluation was performed due to patient having continued confusion. Significant cognitive was noted with an 8 out of 30 on Gilliam screen. He was noted to have serosanguineous drainage from his left hip and worsening pedal edema, along with an increased weight and his Lasix was increased. He was noted to have toe pain and uric acid was obtained showing 7.4. He was given colch icine with a 1.2 mg dose followed by 0.6 mg dose rate results. He had been receiving lactulose due to his elevated ammonia level and this was decreased as the patient reported significant diarrhea. At that time levels were normal to low 30s. In discussion with hospitalist attending, Dr. Gomez, decision was made to start patient on ARB. This led to a significant decrease in patient's renal function. Patient was noted to have thrombocytopenia throughout his stay. He was started on Haldol 2 mg and this was increased to 3 mg, however the patient continued to have difficulty sleeping and hallucinations. Dr. Powell was again consulted and recommended increasing Haldol to 5 mg and starting 15 mg Remeron at bedtime. Patient was given albumin infusion and IV fluid due to decreasing renal function. While here he continued to decline and ultimately stopped eating. Because of this his blood sugar dropped and he was placed on IV fluids and given D50. Renal panel continue to worsen. Social work had been working on guardianship given patient being deemed incompetent to make medical decisions. They were able to obtain a guardianship service that would be willing to take the patient on. Apartment Maintenance was located and funds were received to move forward with this plan. Unfortunately Mandeep continues to decline. He was noted to be tachypneic with gurgling respirations. His ammonia continue to increase and as the patient was no longer taking p.o., it was decided to attempt rectal lactulose, with minimal improvement. Patient was noted to be groaning and appeared to be in pain. He was started on IV push morphine and all p.o. medications were withheld over concerns of aspiration. He was noted to have minimal urine output overnight. Due to the patient having no family or friends involved in his care and guardianship not yet being established there were concerns over continuing treatment, as it was felt we had exhausted all options and at this point further treatment would be prolonging the patient's dying process and suffering. Ethics committee meeting was called and the patient was presented. Decision was made to make the patient comfort cares and discontinue PT/OT, lab draws, oxygen therapy, IV fluids, and home medications. He was started on IV morphine for pain and Ativan for anxiety. He was started on as needed atropine for secretions and a scopolamine patch was placed. His diet was increased to regular, should the patient request p.o. medications. There was involved patient throughout his stay. Patient was noted to have slowing respirations but appeared to be comfortable. Ecommerce Manager certified professional controller, Deacon Patricio, was contacted and was able to be by the patient's side. Patient noted to respirations and no pulse was felt. Time of was noted to be 1850. Dr. Castro, attending hospitalist, was at bedside to examine patient. Patient's body was transferred to [facility]. - Discharge Plan *PRESCRIPTION DRUG MONITORING PROGRAM REVIEWED*: Not Applicable *COPY OF PRESCRIPTION DRUG MONITORING REPORT IN PATIENT TATA: Not Applicable Home Medications: Home Meds Folic Acid 1 mg PO DAILY 07/13/20 [History] Furosemide [Lasix] 40 mg PO DAILY 07/13/20 [History] Lactulose 30 ml PO TID 07/13/20 [History] Magnesium Oxide 400 mg PO DAILY 07/13/20 [History] Meclizine [Antivert] 25 mg PO Q4HR PRN 07/13/20 [History] Melatonin 3 mg PO BEDTIME PRN 07/13/20 [History] Multivitamin 1 tab PO DAILY 07/13/20 [History] Spironolactone 50 mg PO DAILY 07/13/20 [History] Thiamine [Vitamin B-1] 100 mg PO DAILY 07/13/20 [History] Venlafaxine [Effexor] 37.5 mg PO BID 07/13/20 [History] oxyCODONE 5 - 10 mg PO Q6H PRN 07/13/20 [History] Forms: ED Department Discharge - Discharge Summary/Plan Comment DC Time >30 min.: No - General Info Date of Service: 08/09/20 Admission Dx/Problem (Free Text: Admission Diagnosis/Problem Admission Diagnosis/Problem Cellulitis - Review of Systems Systems Review Comment: Patient apneic and pulseless - Patient Data Vitals - Most Recent: Last Vital Signs Temp 98.1 F 08/09/20 09:15 Pulse 87 08/09/20 15:38 Resp 32 H 08/09/20 15:37 BP 96/27 L 08/09/20 15:37 Pulse Ox 91 L 08/09/20 15:38 Weight - Most Recent: 201 lb 4.8 oz I&O - Last 24 hours: Intake & Output 08/09/20 08/10/20 08/10/20 22:59 06:59 14:59 Intake Total 400 Balance 400 Lab Results - Last 24 hrs: Laboratory Results - last 24 hr 08/09/20 08/09/20 08/09/20 Range/Units 06:50 06:50 06:50 WBC 10.97 H (4.23-9.07) K/mm3 RBC 2.36 L (4.63-6.08) M/mm3 Hgb 8.0 L (13.7-17.5) gm/dl Hct 25.3 L (40.1-51.0) % MCV 107.2 H D (79.0-92.2) fl MCH 33.9 H (25.7-32.2) pg MCHC 31.6 L (32.2-35.5) g/dl RDW Std Deviation 83.3 H (35.1-43.9) fL Plt Count 43 L (163-337) K/mm3 MPV 11.5 (9.4-12.3) fl Neut % (Auto) 88.4 H (34.0-67.9) % Lymph % (Auto) 7.5 L (21.8-53.1) % Reeves % (Auto) 3.1 L (5.3-12.2) % Eos % (Auto) 0.1 L (0.8-7.0) Baso % (Auto) 0.1 (0.1-1.2) % Neut # (Auto) 9.70 H (1.78-5.38) K/mm3 Lymph # (Auto) 0.82 L (1.32-3.57) K/mm3 Reeves # (Auto) 0.34 (0.30-0.82) K/mm3 Eos # (Auto) 0.01 L (0.04-0.54) K/mm3 Baso # (Auto) 0.01 (0.01-0.08) K/mm3 Manual Slide Review Abnormal smear Sodium 138 (136-145) mEq/L Potassium 5.3 H (3.5-5.1) mEq/L Chloride 107 (98-107) mEq/L Carbon Dioxide 12 L (21-32) mEq/L Anion Gap 24.3 H (5-15) BUN 62 H (7-18) mg/dL Creatinine 3.3 H (0.7-1.3) mg/dL Est Cr Clr Drug Dosing 21.59 mL/min Estimated GFR (MDRD) 19 (>60) mL/min BUN/Creatinine Ratio 18.8 H (14-18) Glucose 187 H (80-115) mg/dL POC Glucose (80-115) mg/dL Calcium 8.1 L (8.5-10.1) mg/dL Magnesium 2.9 H (1.8-2.4) mg/dl Total Bilirubin 8.2 H (0.2-1.0) mg/dL AST 113 H (15-37) U/L ALT 90 H (16-63) U/L Alkaline Phosphatase 90 (46-116) U/L Ammonia 108 H (11-32) umol/L C-Reactive Protein 7.3 H* (<1.0) mg/dL Total Protein 4.8 L (6.4-8.2) g/dl Albumin 1.6 L (3.4-5.0) g/dl Globulin 3.2 gm/dL Albumin/Globulin Ratio 0.5 L (1-2) Procalcitonin ng/mL 08/09/20 08/09/20 Range/Units 06:50 11:55 WBC (4.23-9.07) K/mm3 RBC (4.63-6.08) M/mm3 Hgb (13.7-17.5) gm/dl Hct (40.1-51.0) % MCV (79.0-92.2) fl MCH (25.7-32.2) pg MCHC (32.2-35.5) g/dl RDW Std Deviation (35.1-43.9) fL Plt Count (163-337) K/mm3 MPV (9.4-12.3) fl Neut % (Auto) (34.0-67.9) % Lymph % (Auto) (21.8-53.1) % Reeves % (Auto) (5.3-12.2) % Eos % (Auto) (0.8-7.0) Baso % (Auto) (0.1-1.2) % Neut # (Auto) (1.78-5.38) K/mm3 Lymph # (Auto) (1.32-3.57) K/mm3 Reeves # (Auto) (0.30-0.82) K/mm3 Eos # (Auto) (0.04-0.54) K/mm3 Baso # (Auto) (0.01-0.08) K/mm3 Manual Slide Review Sodium (136-145) mEq/L Potassium (3.5-5.1) mEq/L Chloride (98-107) mEq/L Carbon Dioxide (21-32) mEq/L Anion Gap (5-15) BUN (7-18) mg/dL Creatinine (0.7-1.3) mg/dL Est Cr Clr Drug Dosing mL/min Estimated GFR (MDRD) (>60) mL/min BUN/Creatinine Ratio (14-18) Glucose (80-115) mg/dL POC Glucose 128 H (80-115) mg/dL Calcium (8.5-10.1) mg/dL Magnesium (1.8-2.4) mg/dl Total Bilirubin (0.2-1.0) mg/dL AST (15-37) U/L ALT (16-63) U/L Alkaline Phosphatase (46-116) U/L Ammonia (11-32) umol/L C-Reactive Protein (<1.0) mg/dL Total Protein (6.4-8.2) g/dl Albumin (3.4-5.0) g/dl Globulin gm/dL Albumin/Globulin Ratio (1-2) Procalcitonin 0.97 H ng/mL Med Orders - Current: Current Medications Discontinued Medications Acetaminophen (Tylenol) 650 mg PO Q4H PRN PRN Reason: Pain/Fever Last Admin: 07/27/20 14:13 Dose: 650 mg Documented by: Alprazolam (Xanax) 1 mg PO BEDTIME ONE Stop: 07/12/20 21:01 Last Admin: 07/12/20 21:24 Dose: 1 mg Documented by: Alprazolam (Xanax) 1 mg PO BEDTIME MELISSA Atropine Sulfate (Atropine 1% Ophth Soln) 0 ml SL Q2H PRN PRN Reason: Excessive secretions Cephalexin (Keflex) 500 mg PO Q8H MELISSA Stop: 07/27/20 06:01 Last Admin: 07/27/20 06:47 Dose: 500 mg Documented by: Colchicine (Colcrys) 1.2 mg PO ONETIME ONE Stop: 07/30/20 09:13 Last Admin: 07/30/20 10:24 Dose: 1.2 mg Documented by: Colchicine (Colcrys) 0.6 mg PO ONETIME ONE Stop: 07/30/20 11:01 Last Admin: 07/30/20 10:25 Dose: 0.6 mg Documented by: Dexamethasone (Dexamethasone) 6 mg PO Q24H MELISSA Stop: 07/27/20 16:01 Last Admin: 07/19/20 15:51 Dose: 6 mg Documented by: Dextrose/Water (Dextrose 50% In Water) 50 ml IVPUSH ASDIRECTED ONE Stop: 08/07/20 08:25 Last Admin: 08/07/20 08:40 Dose: 50 ml Documented by: Dextrose/Water (Dextrose 50% In Water) Confirm Administered Dose 50 ml .ROUTE .STK-MED ONE Stop: 08/07/20 08:28 Last Admin: 08/07/20 08:40 Dose: Not Given Documented by: Dextrose/Water (Dextrose 50% In Water) 50 ml IVPUSH ASDIRECTED ONE Stop: 08/07/20 12:26 Last Admin: 08/07/20 12:37 Dose: 50 ml Documented by: Dextrose/Water (Dextrose 50% In Water) Confirm Administered Dose 50 ml .ROUTE .STK-MED ONE Stop: 08/07/20 12:29 Last Admin: 08/07/20 12:30 Dose: Not Given Documented by: Dextrose/Water (Dextrose 50% In Water) Confirm Administered Dose 50 ml .ROUTE .STK-MED ONE Stop: 08/09/20 06:33 Last Admin: 08/09/20 06:39 Dose: 50 ml Documented by: Dextrose/Water (Dextrose 50% In Water) 50 ml IVPUSH ASDIRECTED PRN PRN Reason: Blood Glucose Doxycycline Hyclate (Vibramycin) 100 mg PO BID [facility] Last Admin: 07/25/20 08:40 Dose: 100 mg Documented by: Famotidine (Pepcid) 40 mg PO BEDTIME [facility] Last Admin: 08/08/20 20:34 Dose: Not Given Documented by: Folic Acid (Folic Acid) 1 mg PO DAILY [facility] Last Admin: 08/09/20 12:20 Dose: Not Given Documented by: Folic Acid (Folic Acid) 1 mg PO DAILY [facility] Furosemide (Lasix) 40 mg IVPUSH NOW ONE Stop: 07/12/20 19:17 Last Admin: 07/12/20 19:38 Dose: 40 mg Documented by: Furosemide (Lasix) 40 mg IVPUSH NOW ONE Stop: 07/13/20 09:15 Last Admin: 07/13/20 09:42 Dose: 40 mg Documented by: Furosemide (Lasix) 40 mg IVPUSH DAILY [facility] Furosemide (Lasix) 20 mg IVPUSH DAILY [facility] Last Admin: 07/14/20 10:10 Dose: 20 mg Documented by: Furosemide (Lasix) 40 mg IVPUSH DAILY [facility] Last Admin: 07/24/20 08:33 Dose: 40 mg Documented by: Furosemide (Lasix) 40 mg PO DAILY [facility] Last Admin: 07/26/20 09:55 Dose: 40 mg Documented by: Furosemide (Lasix) 40 mg PO BIDDIURETIC [facility] Last Admin: 07/30/20 06:28 Dose: 40 mg Documented by: Furosemide (Lasix) 20 mg IVPUSH NOW ONE Stop: 07/26/20 11:46 Last Admin: 07/26/20 11:45 Dose: 20 mg Documented by: Furosemide (Lasix) 40 mg PO DAILY@0600 [facility] Last Admin: 08/07/20 06:43 Dose: 40 mg Documented by: Furosemide (Lasix) 20 mg PO DAILY@1400 [facility] Last Admin: 08/05/20 13:53 Dose: 20 mg Documented by: Furosemide (Lasix) 60 mg IVPUSH NOW ONE Stop: 08/09/20 09:11 Last Admin: 08/09/20 09:55 Dose: 60 mg Documented by: Haloperidol (Haldol) 2 mg PO BEDTIME [facility] Last Admin: 07/30/20 21:02 Dose: 2 mg Documented by: Haloperidol (Haldol) 3 mg PO BEDTIME [facility] Last Admin: 08/03/20 21:43 Dose: 3 mg Documented by: Haloperidol (Haldol) 5 mg PO BEDTIME [facility] Last Admin: 08/07/20 22:06 Dose: Not Given Documented by: Haloperidol (Haldol) 3 mg PO BEDTIME [facility] Sodium Chloride (Normal Saline) 1,000 mls @ 125 mls/hr IV ASDIRECTED [facility] Last Admin: 07/12/20 17:03 Dose: 125 mls/hr Documented by: Vancomycin HCl 1.5 gm/ Sodium (Chloride) 500 mls @ 250 mls/hr IV ONETIME ONE Stop: 07/12/20 19:21 Last Admin: 07/12/20 20:07 Dose: 250 mls/hr Documented by: Vancomycin HCl 1 gm/ Sodium (Chloride) 250 mls @ 250 mls/hr IV Q12H [facility] Last Admin: 07/14/20 23:00 Dose: 250 mls/hr Documented by: Ceftriaxone Sodium 2 gm/ (Sodium Chloride) 100 mls @ 200 mls/hr IV Q24H [facility] Last Admin: 07/14/20 14:38 Dose: 200 mls/hr Documented by: Sodium Chloride (Normal Saline) 1,000 mls @ 100 mls/hr IV ASDIRECTED [facility] Stop: 07/15/20 00:59 Last Admin: 07/14/20 00:04 Dose: 100 mls/hr Documented by: Vancomycin HCl 1 gm/ Sodium (Chloride) 250 mls @ 250 mls/hr IV Q24H [facility] [facility] Stop: 07/21/20 23:00 Last Admin: 07/21/20 20:20 Dose: 250 mls/hr Documented by: Ceftriaxone Sodium 2 gm/ (Sodium Chloride) 100 mls @ 200 mls/hr IV Q24H [facility] Stop: 07/21/20 17:00 Last Admin: 07/21/20 15:10 Dose: 200 mls/hr Documented by: Sodium Chloride (Normal Saline) 100 mls @ 75 mls/hr IV ASDIRECTED [facility] Stop: 07/18/20 17:00 Azithromycin 500 mg/ Sodium (Chloride) 250 mls @ 250 mls/hr IV Q24H [facility] Last Admin: 07/20/20 15:19 Dose: 250 mls/hr Documented by: Remdesivir 200 mg/ Sodium (Chloride) 250 mls @ 250 mls/hr IV ONETIME ONE Stop: 07/18/20 17:29 Last Admin: 07/18/20 17:55 Dose: 250 mls/hr Documented by: Remdesivir 100 mg/ Sodium (Chloride) 100 mls @ 100 mls/hr IV Q24H [facility] Stop: 07/22/20 17:29 Last Admin: 07/19/20 17:14 Dose: 100 mls/hr Documented by: Albumin Human (Flexbumin 25%) 12.5 gm in 50 mls @ 100 mls/hr IV ONETIME ONE Stop: 07/30/20 10:04 Last Admin: 07/30/20 10:25 Dose: 100 mls/hr Documented by: Sodium Chloride (Normal Saline) 500 mls @ 100 mls/hr IV ASDIRECTED [facility] Stop: 08/06/20 13:59 Albumin Human (Flexbumin 25%) 12.5 gm in 50 mls @ 100 mls/hr IV ONETIME ONE Stop: 08/06/20 09:43 Last Admin: 08/06/20 09:33 Dose: 100 mls/hr Documented by: Sodium Chloride (Normal Saline) 1,000 mls @ 50 mls/hr IV ASDIRECTED [facility] Stop: 08/08/20 04:14 Last Infusion: 08/07/20 18:39 Dose: 75 mls/hr Documented by: Dextrose/Sodium Chloride (Dextrose 5%-Normal Saline) 1,000 mls @ 50 mls/hr IV ASDIRECTED [facility] Last Admin: 08/07/20 12:48 Dose: 50 mls/hr Documented by: Dextrose/Sodium Chloride (Dextrose 5%-Normal Saline) 1,000 mls @ 75 mls/hr IV ASDIRECTED [facility] Last Admin: 08/09/20 05:53 Dose: 75 mls/hr Documented by: Iopamidol (Isovue-370 (76%)) 100 ml IVPUSH ONETIME ONE Stop: 07/18/20 13:38 Last Admin: 07/18/20 16:43 Dose: Not Given Documented by: Lactulose (Cephulac) 20 gm PO TID [facility] Last Admin: 07/13/20 15:46 Dose: Not Given Documented by: Lactulose (Cephulac) 20 gm PO TID [facility] Last Admin: 07/15/20 10:21 Dose: 20 gm Documented by: Lactulose (Cephulac) 30 gm PO TID [facility] Last Admin: 07/30/20 08:33 Dose: 30 gm Documented by: Lactulose (Cephulac) 15 gm PO TID [facility] Last Admin: 08/09/20 15:52 Dose: Not Given Documented by: Lactulose (Cephulac) 200 gm .XX TID [facility] Last Admin: 08/09/20 17:58 Dose: Not Given Documented by: Lidocaine/Epinephrine (Xylocaine 1% With Epinephrine 1:100,000) 20 ml INJECT ONETIME ONE Stop: 07/20/20 13:31 Last Admin: 07/20/20 14:59 Dose: Not Given Documented by: Lorazepam (Ativan) 0.5 mg IVPUSH Q6H PRN PRN Reason: Anxiety Losartan Potassium (Cozaar) 12.5 mg PO DAILY [facility] Last Admin: 07/31/20 08:52 Dose: Not Given Documented by: Magnesium Oxide (Magnesium Oxide) 400 mg PO BID [facility] Stop: 07/21/20 23:00 Last Admin: 07/21/20 20:19 Dose: 400 mg Documented by: Magnesium Oxide (Magnesium Oxide) 800 mg PO 1100 [facility] Last Admin: 08/02/20 11:59 Dose: 800 mg Documented by: Melatonin (Melatonin) 3 mg PO BEDTIME PRN PRN Reason: insomnia Last Admin: 07/25/20 22:03 Dose: 3 mg Documented by: Melatonin (Melatonin) 3 mg PO BEDTIME [facility] Last Admin: 08/08/20 21:33 Dose: Not Given Documented by: Midodrine (Midodrine) 5 mg PO TIDAC [facility] Last Admin: 08/09/20 12:20 Dose: Not Given Documented by: Midodrine (Midodrine) 10 mg PO ONETIME ONE Stop: 08/08/20 21:21 Last Admin: 08/08/20 21:31 Dose: 10 mg Documented by: Mirtazapine (Remeron) 15 mg PO BEDTIME [facility] Last Admin: 08/07/20 22:06 Dose: Not Given Documented by: Miscellaneous Information (Remove Patch) 0 ea TRDERM Q24H [facility] Last Admin: 07/31/20 14:26 Dose: 1 ea Documented by: Miscellaneous Information (Remove Patch) 0 ea TRDERM Q24H [facility] Last Admin: 08/09/20 09:17 Dose: 1 ea Documented by: Morphine Sulfate (Morphine) 1 mg IVPUSH Q2H PRN PRN Reason: Pain Last Admin: 08/09/20 15:12 Dose: 1 mg Documented by: Morphine Sulfate (Morphine) 2 mg IVPUSH Q2H PRN PRN Reason: Pain Last Admin: 08/09/20 17:32 Dose: 2 mg Documented by: Multivitamins (Thera) 1 each PO DAILY [facility] Last Admin: 08/09/20 12:20 Dose: Not Given Documented by: Nicotine (Habitrol) 14 mg TRDERM Q24H [facility] Last Admin: 07/31/20 14:26 Dose: 14 mg Documented by: Nicotine (Habitrol) 7 mg TRDERM DAILY [facility] Last Admin: 08/09/20 09:44 Dose: 7 mg Documented by: Non-Formulary Medication (Magnesium Oxide [Magnesium Oxide]) 400 mg PO DAILY [facility] Ondansetron HCl (Zofran) 4 mg IV Q6H PRN PRN Reason: Nausea/Vomiting Ondansetron HCl (Zofran) Confirm Administered Dose 4 mg .ROUTE .STK-MED ONE Stop: 07/28/20 11:03 Last Admin: 07/28/20 12:36 Dose: Not Given Documented by: Ondansetron HCl (Zofran Odt) 4 mg PO Q4H PRN PRN Reason: Nausea/Vomiting Last Admin: 08/08/20 09:39 Dose: 4 mg Documented by: Oral Electrolytes (Thermotabs) 2 each PO BID [facility] Last Admin: 08/08/20 09:40 Dose: 2 each Documented by: Oxycodone HCl (Oxycodone) 5 - 10 mg PO Q6H PRN PRN Reason: Pain Oxycodone HCl (Oxycodone) 5 mg PO Q6H PRN PRN Reason: Pain (moderate 4-6) Last Admin: 08/04/20 06:56 Dose: 5 mg Documented by: Oxycodone HCl (Oxycodone) 10 mg PO Q6H PRN PRN Reason: Pain (severe 7-10) Last Admin: 08/02/20 06:52 Dose: 10 mg Documented by: Potassium Chloride (Klor-Con M20) 40 meq PO TID [facility] Stop: 07/14/20 09:01 Last Admin: 07/14/20 10:09 Dose: 40 meq Documented by: Prednisone (Prednisone) 40 mg PO ONETIME ONE Stop: 08/04/20 12:01 Last Admin: 08/04/20 13:31 Dose: 40 mg Documented by: Scopolamine (Transderm-Scop) 1.5 mg TRDERM Q72H PRN PRN Reason: secretions Last Admin: 08/09/20 18:44 Dose: 1.5 mg Documented by: Sodium Chloride (Saline Flush) 10 ml FLUSH ONETIME PRN PRN Reason: IV FLUSH Stop: 07/18/20 17:00 Spironolactone (Aldactone) 25 mg PO ONETIME ONE Stop: 07/12/20 19:18 Last Admin: 07/12/20 19:38 Dose: 25 mg Documented by: Spironolactone (Aldactone) 25 mg PO ONETIME ONE Stop: 07/13/20 09:16 Last Admin: 07/13/20 09:50 Dose: 25 mg Documented by: Spironolactone (Aldactone) 25 mg PO DAILY [facility] Spironolactone (Aldactone) 50 mg PO DAILY [facility] Last Admin: 07/15/20 10:20 Dose: 50 mg Documented by: Spironolactone (Aldactone) 100 mg PO DAILY [facility] Last Admin: 08/09/20 12:19 Dose: Not Given Documented by: Thiamine HCl (Vitamin B-1) 100 mg PO DAILY [facility] Last Admin: 08/09/20 12:20 Dose: Not Given Documented by: Thiamine HCl (Vitamin B-1) 100 mg PO DAILY [facility] Vancomycin HCl (Pharmacy To Dose - Vancomycin) 1 dose .XX ASDIRECTED [facility] Stop: 07/21/20 23:00 Vancomycin HCl (Vancocin) Confirm Administered Dose 1 gm .ROUTE .STK-MED ONE Stop: 07/17/20 21:34 Last Admin: 07/17/20 23:07 Dose: Not Given Documented by: Venlafaxine HCl (Effexor) 37.5 mg PO BID [facility] - Exam Physical Findings Comments:: Patient pulseless and apneic *Q Meaningful Use (DIS) - VTE *Q VTE Mechanical Contraindications *Q: Confused Consciousness VTE Pharmacological Contraindications *Q: Thrombocytopenia VTE Anticoagulation Contraindications: Medical/Procedure Contrai
== END 2020-08-09 20:38 | disposition expired | DRG 602 ==
LOC: JD.ED 15:59 → JD.MS 07-13 10:07
PROVIDERS: ADMIT Pediatrics; ATTEND Pediatrics
PROC: XW033E5 Introduction of Remdesivir Anti-infective into Peripheral Vein, Percutaneous Approach, New Technology Group 5 (ICD-10-PCS; 2020-07-18)
PROC: 0W993ZZ Drainage of Right Pleural Cavity, Percutaneous Approach (ICD-10-PCS; principal; 2020-07-19)
PROC: 5A0955A Assistance with Respiratory Ventilation, Greater than 96 Consecutive Hours, High Flow/Velocity Cannula (ICD-10-PCS; 2020-07-19)
PROC: 0H9KXZZ Drainage of Right Lower Leg Skin, External Approach (ICD-10-PCS; 2020-07-20)
DX: L03.116 Cellulitis of left lower limb (principal); J96.01 Acute respiratory failure with hypoxia; J12.9 Viral pneumonia, unspecified; I85.00 Esophageal varices without bleeding; E72.20 Disorder of urea cycle metabolism, unspecified; D61.9 Aplastic anemia, unspecified; E87.1 Hypo-osmolality and hyponatremia; J90 Pleural effusion, not elsewhere classified; E87.3 Alkalosis; N17.9 Acute kidney failure, unspecified; E87.2 Acidosis; Z51.5 Encounter for palliative care; Z66 Do not resuscitate; Z20.828 Contact with and (suspected) exposure to other viral communicable diseases; F17.210 Nicotine dependence, cigarettes, uncomplicated; F10.11 Alcohol abuse, in remission; R62.7 Adult failure to thrive; R26.2 Difficulty in walking, not elsewhere classified; L03.115 Cellulitis of right lower limb; K70.31 Alcoholic cirrhosis of liver with ascites; R79.1 Abnormal coagulation profile; D69.6 Thrombocytopenia, unspecified; F32.89 Other specified depressive episodes; K72.10 Chronic hepatic failure without coma; R79.89 Other specified abnormal findings of blood chemistry; R44.1 Visual hallucinations; M10.9 Gout, unspecified; K42.9 Umbilical hernia without obstruction or gangrene; I08.1 Rheumatic disorders of both mitral and tricuspid valves; F32.9 Major depressive disorder, single episode, unspecified; H54.7 Unspecified visual loss; I10 Essential (primary) hypertension; E66.9 Obesity, unspecified; T50.4X5A Adverse effect of drugs affecting uric acid metabolism, initial encounter; I87.2 Venous insufficiency (chronic) (peripheral); E16.2 Hypoglycemia, unspecified; E83.41 Hypermagnesemia; E88.09 Other disorders of plasma-protein metabolism, not elsewhere classified; E87.6 Hypokalemia; F03.90 Unspecified dementia, unspecified severity, without behavioral disturbance, psychotic disturbance, mood disturbance, and anxiety; I95.9 Hypotension, unspecified; E64.9 Sequelae of unspecified nutritional deficiency; R19.7 Diarrhea, unspecified; F41.9 Anxiety disorder, unspecified; Z91.19 Patient's noncompliance with other medical treatment and regimen; Z98.890 Other specified postprocedural states; Z79.899 Other long term (current) drug therapy; Z90.49 Acquired absence of other specified parts of digestive tract; Z71.6 Tobacco abuse counseling; Z68.30 Body mass index [BMI] 30.0-30.9, adult; R06.02 Shortness of breath
CPT/HCPCS: 36415 ×2; 71045; 80053 ×2; 80307; 81001; 82140; 83605; 83735; 83880; 84484; 85025 ×2; 85610; 85652; 85730; 86140; 87040 ×2; 93005; 96365; 96366; 96375; 96376; 99285; A9270 ×5; J1940 ×2; J3370; J7030; J7040; U0002; 36600; 71046; 71046-26; 71275; 71275-26; 76770; 76770-26; 76942; 80048; 80202; 82248; 82306; 82728; 82803; 82962; 83525; 83615; 83930; 84100; 84145; 84157; 84550; 85007; 85048; 85379; 86738; 87070; 87075; 87205; 87486; 87581; 87633; 87798; 87899; 89050; 92523-GN; 93010; 93306; 94760; 94761; 94762; 97110-GP; 97116-GP; 97162-GP; 97165-GO; 97530-GO; 97530-GP; 97535-GO; 99222; 99232; 99233; 99238; J0456; J0696; J2270; J7042; J7050; J7512; J8540; P9047